=== PATIENT | female | born 1935 | race Caucasian/White ===

== ENCOUNTER → 2016-10-16 | Outpatient (CLI) | payer MEDICARE, BC ==
--- NOTE | 2016-10-16 14:42 | XR ---
EXAMINATION TYPE: XR chest 2V DATE OF EXAM: 10/16/2016 2:38 PM HISTORY: J44.9 COPD. REFERENCE: Previous study dated 11/25/2015. FINDINGS: The lungs are overinflated. There is a calcified granuloma at the left lung base. The lungs are otherwise clear. Pleural spaces are clear. Heart size is normal. IMPRESSION: 1. COPD. 2. EVIDENCE OF OLD GRANULOMATOUS DISEASE.
--- NOTE | 2016-10-16 14:43 | XR ---
EXAMINATION TYPE: XR abdomen 1V DATE OF EXAM ORDERED: 10/16/2016 2:38 PM HISTORY: K59.0 constipation. COMPARISON: None. FINDINGS: The abdominal gas pattern is within normal limits. There is no evidence of obstruction or free air. There is moderate fecal material present overlying the right side of the pelvis. No unusual calcifications are seen. There are degenerative changes in both hips, greater on the right than the left. IMPRESSION: NO ACUTE INTRA-ABDOMINAL ABNORMALITY.
== END | disposition home or self-care (01) ==
LOC: RADXRMAIN 14:18
PROVIDERS: ATTEND Physician Assistant
DX: J44.9 Chronic obstructive pulmonary disease, unspecified (principal); D71 Functional disorders of polymorphonuclear neutrophils; K59.00 Constipation, unspecified
CPT/HCPCS: 71020; 74000

== ENCOUNTER → 2016-11-03 | Outpatient (CLI) | payer MEDICARE, BC ==
--- NOTE | 2016-11-03 10:48 | ECHOF ---
Referral Reason:R01.1 cardiac murmur MEASUREMENTS -------- HEIGHT: 162.6 cm WEIGHT: 40.8 kg BP: 147/65 IVSd: 1.2 cm (0.6 - 1.1) LVIDd: 2.5 cm (3.9 - 5.3) LVPWd: 1.1 cm (0.6 - 1.1) IVSs: 1.6 cm LVIDs: 1.0 cm LVPWs: 1.6 cm Ao Diam: 2.9 cm (2.0 - 3.7) AV Cusp: 1.9 cm (1.5 - 2.6) LA Diam: 2.0 cm (2.7 - 3.8) MV EXCURSION: 13.362 mm (> 18.000) MV EF SLOPE: 62 mm/s (70 - 150) EPSS: 0.3 cm MV E Jalen: 0.63 m/s MV DecT: 206 ms MV A Jalen: 0.49 m/s MV E/A Ratio: 1.30 RAP: 5.00 mmHg RVSP: 30.00 mmHg FINDINGS -------- Sinus rhythm. This was a technically difficult study with suboptimal apical views.Images taken from subcoastals. There is mild concentric left ventricular hypertrophy. Overall left ventricular systolic function is normal with, an EF between 55 - 60 %. The right ventricle is normal in size and function. The left atrium is normal in size. The right atrium is normal in size. Aortic valve is trileaflet and is mildly thickened. The mitral valve leaflets are mildly thickened. Mild mitral regurgitation is present. Mild tricuspid regurgitation present. The right ventricular systolic pressure, as measured by Doppler, is 30.00mmHg. Pulmonic valve appears structurally normal. The aortic root size is normal. The pericardium is normal. CONCLUSIONS -------- 1. Sinus rhythm. 2. Mild mitral regurgitation is present. 3. Mild tricuspid regurgitation present. 4. The right ventricular systolic pressure, as measured by Doppler, is 30.00mmHg. 5. Pulmonic valve appears structurally normal. 6. The aortic root size is normal. 7. The pericardium is normal. 8. This was a technically difficult study with suboptimal apical views. Images taken from subcoastals. 9. There is mild concentric left ventricular hypertrophy. 10. Overall left ventricular systolic function is normal with, an EF between 55 - 60 %. 11. The right ventricle is normal in size and function. 12. The left atrium is normal in size. 13. The right atrium is normal in size. 14. Aortic valve is trileaflet and is mildly thickened. 15. The mitral valve leaflets are mildly thickened. PROFESSIONAL SERVICES MANAGER: Sydni Sorenson RDCS
== END | disposition home or self-care (01) ==
LOC: RADECHMAIN 08:18
PROVIDERS: ATTEND Family Medicine
DX: I08.1 Rheumatic disorders of both mitral and tricuspid valves (principal)
CPT/HCPCS: 93306

== ENCOUNTER → 2016-12-06 | Outpatient (CLI) | payer MEDICARE, BC ==
[2016-12-06 11:16] LABS: Blood Urea Nitrogen 12 mg/dL (7-17); Non-African American GFR(MDRD) >60 (>60 ml/min/1.73 sqM)
--- NOTE | 2016-12-06 13:46 | CT ---
EXAMINATION TYPE: CT abdomen pelvis w con DATE OF EXAM: 12/06/2016 COMPARISON: Prior CT 11/27/2012 HISTORY: chronic constipation CT DLP: 319.3 mGycm Automated exposure control for dose reduction was used. TECHNIQUE: Helical acquisition of images from the lung bases through the pelvis have been completed. CONTRAST: Performed with Oral Contrast and with IV Contrast, patient injected with 100 mL of Omnipaque 300. FINDINGS: LUNG BASES: Calcified granuloma in the left lower lobe is stable.. Interstitial changes present, emph ysematous changes at the lung bases. Posterior diaphragmatic hernia contains fat. No pleural or peric ardial effusion. AORTA: No significant abnormality is appreciated. LIVER/GB: Liver and gallbladder are stable PANCREAS: No significant abnormality is seen. SPLEEN: Calcifications again noted compatible with old granulomatous disease.. ADRENALS: Low dense left adrenal lesion appears stable and may represent adenoma. Right adrenal gland is unremarkable. KIDNEYS: Stable in appearance. Small cortical cysts are present. REPRODUCTIVE ORGANS: Uterus and adnexal structures are not evident. BOWEL: Retained fecal debris present within the colon along the a sending and transverse locations, more distally at the descending colon the colon is collapsed and show some questionable wall thickeni ng.. FREE AIR: No Free Air visible. ASCITES: None visible. PELVIC ADENOPATHY: None visualized. RETROPERITONEAL ADENOPATHY: No Retroperitoneal Adenopathy visible. URINARY BLADDER: Bladder is urine distended. OSSEOUS STRUCTURES: Degenerative disc changes are present within the visualized spine. IMPRESSION: CORRELATE TO EXCLUDE COLITIS. SIMILAR FINDINGS PRESENT ON PRIOR EXAM. Additional findings above.
== END | disposition home or self-care (01) ==
LOC: RADCTMAIN 10:32
PROVIDERS: ATTEND Family Medicine
DX: K59.00 Constipation, unspecified (principal)
CPT/HCPCS: 82565; 84520; 74177; 36415; Q9967

== ENCOUNTER → 2017-04-25 | Outpatient (CLI) | payer MEDICARE, BC ==
--- NOTE | 2017-04-25 15:00 | XR ---
EXAM TYPE: LUMBAR SPINE X RAY SERIES COMPARISON: NONE HISTORY: Back pain TECHNIQUE: 4 views are submitted. FINDINGS: Alignment is anatomic. The pedicles are intact. The transverse processes are intact. There is no s pondylolysis or spondylolisthesis. Diffuse osteopenia noted with multilevel degenerative disc diseas e and severe changes L5-S1. Facet arthropathy L4-5 and L5-S1. Vascular calcification seen. IMPRESSION: 1. Diffuse osteopenia and multilevel degenerative disc disease. Consider MRI follow-up.
[2017-04-25 15:02] LABS: Non-African American GFR(MDRD) >60 (>60 ml/min/1.73 sqM)
--- NOTE | 2017-04-26 01:00 | MR ---
EXAMINATION TYPE: MR lumbar spine wo/w con DATE OF EXAM: 04/25/2017 COMPARISON: NONE HISTORY: 81-year-old female with sciatica Technique: Multiplanar, multisequence images of the lumbar spine were obtained before and after admin istration of 4.5 mL IV Gadavist contrast. FINDINGS: Mildly ectatic upper abdominal aorta 2.7 cm. No prevertebral or paravertebral soft tissue abnormality seen. Vertebral body heights are preserved and alignment is maintained. No suspicious bone marrow replacement. Conus medullaris is normal. Variable mild intervertebral disc desiccation and bulging disc especially in the mid to lower lumbar spine. There is enhancing posterior annular fissure at L4-L5. Hypertrophic facet arthropathy mid to lower lumbar spine with corresponding ligamentum flavum thicken ing. At T12-L1, no spinal canal or neuroforaminal stenosis. At L1-L2, no spinal canal or neural foraminal stenosis. At L2-L3, there is mild bulging disc without significant canal or foraminal stenosis. At L3-L4, larger diffuse disc bulge with ligamentum flavum thickening and hypertrophic facet arthropa thy. Changes result in moderate to severe spinal canal stenosis. Some CSF signal remains at the focal site of narrowing. Mild left greater than right neural foraminal stenosis. At L4-L5, diffuse disc bulge and ligament of flavum thickening with facet arthropathy. There is some indentation onto the ventral thecal sac without significant spinal canal stenosis. Changes result in mild bilateral neural foraminal stenosis with disc material closely approaching and possibly abutting the traversing left L5 nerve root. At L5-S1, there is diffuse disc bulge which seems to prominently abut the right greater than left tra versing S1 nerve roots. Ligamentum flavum thickening and facet arthropathy without significant spinal canal stenosis. There is mild bilateral neuroforaminal stenosis. No abnormal enhancement within the spinal canal. IMPRESSION: 1. Mild to moderate multilevel degenerative disc disease. Additional ligamentum flavum thickening and hypertrophic facet arthropathy in the mid to lower lumbar spine. 2. Changes result in overall moderate to severe spinal canal stenosis at L3-L4. 3. At L4-L5, there is posterior annular fissure and disc material closely approaches and possibly abu ts the traversing left L5 nerve root. 4. Broad-based disc herniation at L5-S1 which seems to compressed the traversing right S1 nerve root and abuts the traversing left S1 nerve root. 5. Variable mild neuroforaminal stenoses as outlined above.
== END | disposition home or self-care (01) ==
LOC: RADMRIMAIN 14:21
PROVIDERS: ATTEND Family Medicine
DX: M48.061 Spinal stenosis, lumbar region without neurogenic claudication (principal); M51.36 Other intervertebral disc degeneration, lumbar region; M51.27 Other intervertebral disc displacement, lumbosacral region; M99.73 Connective tissue and disc stenosis of intervertebral foramina of lumbar region; M24.28 Disorder of ligament, vertebrae; M53.86 Other specified dorsopathies, lumbar region; M85.88 Other specified disorders of bone density and structure, other site
CPT/HCPCS: 82565; 72100; 72158; A9581

== ENCOUNTER → 2017-12-03 | Outpatient (CLI) | payer MEDICARE, BC ==
--- NOTE | 2017-12-03 13:41 | US ---
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 EXAM MEASUREMENTS: Right Kidney: 10.2 x 3.3 x 4.6 cm Left Kidney: 10.0 x 3.6 x 4.2 cm Right Kidney: No hydronephrosis or masses seen Left Kidney: No hydronephrosis or masses seen Bladder: wnl Bilateral Jets seen: Yes There is no evidence for hydronephrosis at this point in time. No nephrolithiasis is seen. No iris s are identified. The urinary bladder is anechoic. Bilateral ureteral jets are seen. IMPRESSION: Unremarkable renal ultrasound. No evidence of hydronephrosis, nephrolithiasis or sonographic evidence of medical renal disease. Urinary bladder is grossly unremarkable.
== END | disposition home or self-care (01) ==
LOC: RADUSWWP 12:40
PROVIDERS: ATTEND Urology
DX: C67.0 Malignant neoplasm of trigone of bladder (principal)
CPT/HCPCS: 76770

== ENCOUNTER → 2018-02-01 | Outpatient (CLI) | payer MEDICARE, BC ==
--- NOTE | 2018-02-01 16:50 | XR ---
EXAMINATION TYPE: XR cervical spine comp DATE OF EXAM: 02/01/2018 COMPARISON: 02/17/2011 HISTORY: Neck pain TECHNIQUE: 6 views FINDINGS: Vertebra have normal alignment. There is mild spurring of the endplates anteriorly at [id number] and 6 7. Posterior elements are intact. Atlantoaxial facet joint is normal. There are no cervical ribs. IMPRESSION: Mild spondylotic changes. No fracture. Overall no adverse change compared to old exam.
== END | disposition home or self-care (01) ==
LOC: RADXRMAIN 16:15
PROVIDERS: ATTEND Family Medicine
DX: M47.812 Spondylosis without myelopathy or radiculopathy, cervical region (principal)
CPT/HCPCS: 72050

== ENCOUNTER → 2018-02-25 | Outpatient (CLI) | payer MEDICARE, BC ==
--- NOTE | 2018-02-25 11:33 | XR ---
EXAMINATION TYPE: XR chest 2V DATE OF EXAM: 02/25/2018 COMPARISON: 10/16/2016 TECHNIQUE: PA and lateral views submitted. HISTORY: Difficulty breathing FINDINGS: The lungs are clear and there is no pneumothorax, pleural effusion, or focal pneumonia. Hyperinflat ion suggests COPD and there is apical thickening bilaterally. Postsurgical change right shoulder. Dif fuse osteopenia noted. 1 cm nodule overlying the left lower lobe. Atherosclerotic change of the aorta . Hypertrophic and degenerative change of the spine. IMPRESSION: 1. COPD with left lower lobe pulmonary nodule CT of the chest is recommended.
== END | disposition home or self-care (01) ==
LOC: RADXRMAIN 10:13
PROVIDERS: ATTEND Physician Assistant
DX: J44.9 Chronic obstructive pulmonary disease, unspecified (principal); R91.1 Solitary pulmonary nodule
CPT/HCPCS: 71046

== ENCOUNTER → 2018-03-07 | Outpatient (CLI) | payer MEDICARE, BC ==
[2018-03-07 15:50] LABS: Blood Urea Nitrogen 12 mg/dL (7-17)
--- NOTE | 2018-03-07 16:29 | CT ---
EXAMINATION TYPE: CT chest w con DATE OF EXAM: 03/07/2018 COMPARISON: 09/26/2009 HISTORY: Productive cough and solitary pulmonary nodule CT DLP: 278 mGycm. Automated Exposure Control for Dose Reduction was Utilized. TECHNIQUE: CT scan of the thorax is performed following with IV Contrast, patient injected with 100 mL of Isovue 300. FINDINGS: LUNGS: There are extensive centrilobular and paraseptal emphysematous changes of the lungs. Left basi lar calcified pulmonary nodule is benign. This impaction of the distal segmental bronchus in the righ t middle lobe and adjacent atelectasis are seen on series 4 image 38 through 44. There is a pectus ex cavatum deformity. Main tracheobronchial tree is patent. There is no focal consolidation, pleural eff usion or pneumothorax. MEDIASTINUM: There are no greater than 1 cm hilar or mediastinal lymph nodes. No pericardial effusi on is seen. There is tortuosity of the descending thoracic aorta although it is within normal limits of size. There is a conventional three-vessel branch pattern of the aortic arch. Moderate atheroscle rosis of the thoracic aorta is seen with minimal coronary artery calcifications. OTHER: Benign calcified splenic parenchymal granulomas and hepatic granulomas are noted. Nonspecific thickening of the left adrenal gland is partially visualized on image 64 measuring up to 1.4 cm. This is not compatible with a benign lipid rich adenoma on today's exam. Small bridging anterior osteophy torie may relate to diffuse idiopathic skeletal hyperostosis or moderate multilevel degenerative change . IMPRESSION: 1. Extensive panlobular pulmonary emphysema. 2. Benign calcified left lower lobe granuloma. No suspicious pulmonary nodule or mass. 3. Endobronchial mucoid impaction of a solitary subsegmental bronchus of the right middle lobe. 4. Indeterminate left adrenal gland lesion for which full characterization with three-phase enhanced CT abdomen is recommended (adrenal mass protocol).
== END | disposition home or self-care (01) ==
LOC: RADCTMAIN 15:19
PROVIDERS: ATTEND Physician Assistant
DX: J43.1 Panlobular emphysema (principal); J84.10 Pulmonary fibrosis, unspecified; J98.09 Other diseases of bronchus, not elsewhere classified
CPT/HCPCS: 82565; 84520; 71260; 36415; Q9967

== ENCOUNTER 2018-05-17 17:09 | Emergency (ER) | payer MEDICARE, BC ==
[2018-05-17 17:21] VITALS: TEMP 97.5
[2018-05-17] MEDS ORDERED: ASPIRIN 81 MG PO STA (17:50)
--- NOTE | 2018-05-17 17:55 | ED ---
General Adult HPI - General Chief complaint: Recheck/Abnormal Lab/Rx Stated complaint: High BP Time Seen by Provider: 05/17/18 17:33 Source: patient Mode of arrival: ambulatory Limitations: no limitations - History of Present Illness Initial comments: Patient is an 82-year-old female with a history of viral endocarditis and hyperthyroidism who presents with a chief complaint weakness. However about 2 weeks. Patient cannot identify inciting incident. There are no aggravating or alleviating factors. Timing is constant. Patient follows with Dr. Pal who requested that she go to the emergency department for evaluation. - Related Data Home Medications Medication Instructions Recorded Confirmed Levothyroxine Sodium [Synthroid] 50 mcg PO DAILY 05/17/18 05/17/18 Loratadine 10 mg PO DAILY PRN 05/17/18 05/17/18 Verapamil HCl 120 mg PO BID 05/17/18 05/17/18 Allergies Allergy/AdvReac Type Severity Reaction Status Date / Time azithromycin Allergy Verified 05/17/18 18:11 codeine Allergy Verified 05/17/18 18:11 mussels Allergy Verified 05/17/18 18:11 Sulfa (Sulfonamide Allergy Verified 05/17/18 18:11 Antibiotics) Review of Systems ROS Statement: Those systems with pertinent positive or pertinent negative responses have been documented in the HPI. ROS Other: All systems not noted in ROS Statement are negative. Constitutional: Reports: weakness Past Medical History Past Medical History: Hypertension, Thyroid Disorder History of Any Multi-Drug Resistant Organisms: None Reported Past Surgical History: No Surgical Hx Reported Past Psychological History: No Psychological Hx Reported Smoking Status: Current some day smoker Past Alcohol Use History: None Reported Past Drug Use History: None Reported General Exam Limitations: no limitations General appearance: alert, in no apparent distress Head exam: Present: atraumatic, normocephalic Eye exam: Present: normal appearance, PERRL ENT exam: Present: normal exam Neck exam: Present: normal inspection Respiratory exam: Present: normal lung sounds bilaterally, respiratory distress Cardiovascular Exam: Present: regular rate, normal rhythm GI/Abdominal exam: Present: soft, tenderness (Right upper quadrant tenderness). Absent: distended Rectal exam: Present: deferred Extremities exam: Present: normal inspection Back exam: Present: normal inspection. Absent: CVA tenderness (R), CVA tenderness (L) Neurological exam: Present: alert, oriented X3, CN II-XII intact, normal gait Psychiatric exam: Present: normal affect, normal mood Skin exam: Present: warm, dry, intact Course Vital Signs 05/17/18 05/17/18 05/17/18 17:18 18:01 18:39 Temperature 97.5 F L Pulse Rate 78 78 73 Respiratory 22 29 H 18 Rate Blood Pressure 166/80 156/72 O2 Sat by Pulse 97 95 97 Oximetry 05/17/18 05/17/18 19:00 21:00 Temperature Pulse Rate 72 75 Respiratory 21 20 Rate Blood Pressure 156/72 172/79 O2 Sat by Pulse 95 96 Oximetry Medical Decision Making - Medical Decision Making Patient presents with a chief complaint of fatigue. On initial evaluation, vital signs are stable, patient is in no acute distress. Patient evaluated that he landed including cardiac enzymes, liver profile and lipase given the right upper quadrant abdominal pain, chest x-ray. Patient was given aspirin. EKG performed at 1813 normal sinus rhythm with a rate of 70 bpm. There is an incomplete right bundle branch block, segmented greater than normal limits, no acute sign of ischemia. There are no previous EKGs to compare to. 10:20 PM Evaluation this patient is unremarkable except for an elevated TSH, reflex T4 is 1.0. I discussed this case with Dr. Padilla from endocrinology who states that the patient is appropriate for outpatient follow-up. The patient will be given contact information for Dr. Sawant's office and instructed to follow-up in one week. Patient was instructed to return to the ED if symptoms worsen or change. - Lab Data Result diagrams: 05/17/18 18:30 05/17/18 18:30 Lab Results 05/17/18 05/17/18 05/17/18 Range/Units 17:15 18:30 18:30 WBC (3.8-10.6) k/uL RBC (3.80-5.40) m/uL Hgb (11.4-16.0) gm/dL Hct (34.0-46.0) % MCV (80.0-100.0) fL MCH (25.0-35.0) pg MCHC (31.0-37.0) g/dL RDW (11.5-15.5) % Plt Count (150-450) k/uL Neutrophils % % Lymphocytes % % Monocytes % % Eosinophils % % Basophils % % Neutrophils # (1.3-7.7) k/uL Lymphocytes # (1.0-4.8) k/uL Monocytes # (0-1.0) k/uL Eosinophils # (0-0.7) k/uL Basophils # (0-0.2) k/uL Sodium 141 (137-145) mmol/L Potassium 3.6 (3.5-5.1) mmol/L Chloride 106 (98-107) mmol/L Carbon Dioxide 27 (22-30) mmol/L Anion Gap 8 mmol/L BUN 10 (7-17) mg/dL Creatinine 0.54 (0.52-1.04) mg/dL Est GFR (CKD-EPI)AfAm >90 (>60 ml/min/1.73 sqM) Est GFR (CKD-EPI)NonAf 88 (>60 ml/min/1.73 sqM) Glucose 91 (74-99) mg/dL Calcium 9.7 (8.4-10.2) mg/dL Total Bilirubin 0.3 (0.2-1.3) mg/dL AST 25 (14-36) U/L ALT 27 (9-52) U/L Alkaline Phosphatase 68 (38-126) U/L Troponin I <0.012 (0.000-0.034) ng/mL NT-Pro-B Natriuret Pep pg/mL Total Protein 7.0 (6.3-8.2) g/dL Albumin 4.3 (3.5-5.0) g/dL Lipase 132 (23-300) U/L TSH 6.280 H (0.465-4.680) mIU/L Free T4 1.00 (0.78-2.19) ng/dL Urine Color Colorless Urine Appearance Clear (Clear) Urine pH 6.5 (5.0-8.0) Ur Specific [place] 1.002 (1.001-1.035) Urine Protein Negative (Negative) Urine Glucose (UA) Negative (Negative) Urine Ketones Negative (Negative) Urine Blood Negative (Negative) Urine Nitrite Negative (Negative) Urine Bilirubin Negative (Negative) Urine Urobilinogen <2.0 (<2.0) mg/dL Ur Leukocyte Esterase Negative (Negative) 05/17/18 05/17/18 Range/Units 18:30 18:30 WBC 5.4 (3.8-10.6) k/uL RBC 4.57 (3.80-5.40) m/uL Hgb 13.5 (11.4-16.0) gm/dL Hct 43.0 (34.0-46.0) % MCV 94.0 (80.0-100.0) fL MCH 29.4 (25.0-35.0) pg MCHC 31.3 (31.0-37.0) g/dL RDW 13.6 (11.5-15.5) % Plt Count 199 (150-450) k/uL Neutrophils % 52 % Lymphocytes % 36 % Monocytes % 6 % Eosinophils % 4 % Basophils % 1 % Neutrophils # 2.8 (1.3-7.7) k/uL Lymphocytes # 1.9 (1.0-4.8) k/uL Monocytes # 0.3 (0-1.0) k/uL Eosinophils # 0.2 (0-0.7) k/uL Basophils # 0.1 (0-0.2) k/uL Sodium (137-145) mmol/L Potassium (3.5-5.1) mmol/L Chloride (98-107) mmol/L Carbon Dioxide (22-30) mmol/L Anion Gap mmol/L BUN (7-17) mg/dL Creatinine (0.52-1.04) mg/dL Est GFR (CKD-EPI)AfAm (>60 ml/min/1.73 sqM) Est GFR (CKD-EPI)NonAf (>60 ml/min/1.73 sqM) Glucose (74-99) mg/dL Calcium (8.4-10.2) mg/dL Total Bilirubin (0.2-1.3) mg/dL AST (14-36) U/L ALT (9-52) U/L Alkaline Phosphatase (38-126) U/L Troponin I (0.000-0.034) ng/mL NT-Pro-B Natriuret Pep 109 pg/mL Total Protein (6.3-8.2) g/dL Albumin (3.5-5.0) g/dL Lipase (23-300) U/L TSH (0.465-4.680) mIU/L Free T4 (0.78-2.19) ng/dL Urine Color Urine Appearance (Clear) Urine pH (5.0-8.0) Ur Specific [place] (1.001-1.035) Urine Protein (Negative) Urine Glucose (UA) (Negative) Urine Ketones (Negative) Urine Blood (Negative) Urine Nitrite (Negative) Urine Bilirubin (Negative) Urine Urobilinogen (<2.0) mg/dL Ur Leukocyte Esterase (Negative) Disposition Clinical Impression: Fatigue Disposition: HOME SELF-CARE Condition: Good Is patient prescribed a controlled substance at d/c from ED?: No Referrals: Ebenezer Caldwell MD [Primary Care Provider] - 1-2 days Cindy Padilla MD [STAFF PHYSICIAN] - 1-2 days
[2018-05-17 18:41] LABS: Basophils # (A) 0.1 k/uL (0-0.2); Basophils % (A) 1 %; Eosinophils # (A) 0.2 k/uL (0-0.7); Eosinophils % (A) 4 %; HGB 13.5 gm/dL (11.4-16.0); Lymphocytes # (A) 1.9 k/uL (1.0-4.8); Lymphocytes % (A) 36 %; MCH 29.4 pg (25.0-35.0); MCHC 31.3 g/dL (31.0-37.0); Mean Platelet Volume 6.6; Monocytes # (A) 0.3 k/uL (0-1.0); Monocytes % (A) 6 %; Neutrophils # (A) 2.8 k/uL (1.3-7.7); Neutrophils % (A) 52 %; Platelet Count 199 k/uL (150-450); RBC 4.57 m/uL (3.80-5.40); RDW 13.6 % (11.5-15.5); WBC 5.4 k/uL (3.8-10.6)
[2018-05-17 18:49] LABS: ALT 27 U/L (9-52); AST 25 U/L (14-36); Albumin 4.3 g/dL (3.5-5.0); Alkaline Phosphatase 68 U/L (38-126); Anion Gap 8 mmol/L; Blood Urea Nitrogen 10 mg/dL (7-17); Calcium 9.7 mg/dL (8.4-10.2); Carbon Dioxide 27 mmol/L (22-30); Chloride 106 mmol/L (98-107); Glucose 91 mg/dL (74-99); Lipase 132 U/L (23-300); Potassium 3.6 mmol/L (3.5-5.1); Sodium 141 mmol/L (137-145); Total Bilirubin 0.3 mg/dL (0.2-1.3)
--- NOTE | 2018-05-17 19:08 | XR ---
EXAMINATION TYPE: XR chest 2V DATE OF EXAM: 05/17/2018 COMPARISON: 03/21/2018 HISTORY: High blood pressure TECHNIQUE: Frontal and lateral views of the chest are obtained. FINDINGS: There is no heart failure nor confluent pneumonic infiltrate. There is pulmonary hyperinfl ation and flattening of the diaphragm. There is a 1 cm calcified granuloma in the left lower lobe. Th oracic aorta is atheromatous. There are chest leads. IMPRESSION: COPD. No acute lung disease. No change.
[2018-05-17 19:31] LABS: Appearance,Urine Clear (Clear); Bilirubin,Urine Negative (Negative); Blood,Urine Negative (Negative); Color,Urine Colorless; Glucose,Urine (UA) Negative (Negative); Ketones,Urine Negative (Negative); Leukocyte Esterase,Urine Negative (Negative); Nitrite,Urine Negative (Negative); PH, Urine 6.5 (5.0-8.0); Protein,Urine Negative (Negative); Specific Gravity,Urine 1.002 (1.001-1.035); Urobilinogen,Urine <2.0 mg/dL (<2.0)
[2018-05-17 22:00] VITALS: BP 172/79; PULSE 75; RESP 20
== END 2018-05-17 23:52 | disposition home or self-care (01) ==
LOC: EC 17:09
DX: R53.83 Other fatigue (principal); R10.11 Right upper quadrant pain; I45.10 Unspecified right bundle-branch block; R94.6 Abnormal results of thyroid function studies; R06.03 Acute respiratory distress; R53.1 Weakness; I10 Essential (primary) hypertension; E05.90 Thyrotoxicosis, unspecified without thyrotoxic crisis or storm; F17.200 Nicotine dependence, unspecified, uncomplicated; Z88.1 Allergy status to other antibiotic agents; Z88.2 Allergy status to sulfonamides; Z88.5 Allergy status to narcotic agent; Z91.048 Other nonmedicinal substance allergy status; Z79.899 Other long term (current) drug therapy
CPT/HCPCS: 36415; 71046; 80053; 81003; 83690; 83880; 84439; 84443; 84484; 85025; 93005; 99283

== ENCOUNTER 2018-05-29 18:34 | Inpatient (IN) | payer MEDICARE, BC ==
[2018-05-29] MEDS ORDERED: SODIUM CHLORIDE 0.9% 1,000 ML IV STA ×2 (19:32)
[2018-05-29] MEDS ORDERED: IPRATROPIUM-ALBUTEROL 3 ML NEB INHALATION STA ×2 (19:33→19:35)
--- NOTE | 2018-05-29 19:36 | ED ---
SOB HPI - General Chief Complaint: Shortness of Breath Stated Complaint: IVETTE, SENT BY DR CALIXTO Time Seen by Provider: 05/29/18 19:03 Source: patient, RN notes reviewed, old records reviewed Mode of arrival: ambulatory Limitations: no limitations - History of Present Illness Initial Comments: Patient is a 82-year-old female presents emergency department today with difficulty breathing. She reports she's had upper respirator infection for the past 2 weeks. She reports that she becomes very short of breath with walking short distances. Patient was seen by her primary care provider today. She was given an IM dose of antibiotic and steroid and a breathing treatment office. It was sent here for further evaluation. She denies chest pain. She is a previous smoker and diagnosed with minor COPD. - Related Data Home Medications Medication Instructions Recorded Confirmed Levothyroxine Sodium [Synthroid] 50 mcg PO DAILY 05/17/18 05/29/18 Verapamil HCl 120 mg PO BID 05/17/18 05/29/18 Ensure 1 can PO BID-W/MEALS 05/29/18 05/29/18 Allergies Allergy/AdvReac Type Severity Reaction Status Date / Time azithromycin Allergy Unknown Verified 05/29/18 20:04 codeine Allergy Unknown Verified 05/29/18 20:04 mussels Allergy Unknown Verified 05/29/18 20:04 Sulfa (Sulfonamide Allergy Unknown Verified 05/29/18 20:04 Antibiotics) Review of Systems ROS Statement: Those systems with pertinent positive or pertinent negative responses have been documented in the HPI. ROS Other: All systems not noted in ROS Statement are negative. Past Medical History Past Medical History: COPD, Hypertension, Thyroid Disorder History of Any Multi-Drug Resistant Organisms: None Reported Past Surgical History: No Surgical Hx Reported, Hysterectomy Additional Past Surgical History / Comment(s): vein stripping BLE, R knee, oophrectomy, R shoulder Past Psychological History: No Psychological Hx Reported Smoking Status: Former smoker Past Alcohol Use History: None Reported Past Drug Use History: None Reported General Exam - General Exam Comments Initial Comments: 82-year-old female. Patient is speaking in short sentences. Limitations: no limitations General appearance: alert, in no apparent distress Head exam: Present: atraumatic, normocephalic, normal inspection Eye exam: Present: normal appearance, PERRL, EOMI. Absent: scleral icterus, conjunctival injection, periorbital swelling ENT exam: Present: normal exam, mucous membranes moist Neck exam: Present: normal inspection Respiratory exam: Present: rhonchi (She's wheezing and rhonchi noted). Absent: normal lung sounds bilaterally, respiratory distress, rales, stridor Cardiovascular Exam: Present: regular rate, normal rhythm, normal heart sounds. Absent: systolic murmur, diastolic murmur, rubs, gallop, clicks GI/Abdominal exam: Present: soft, normal bowel sounds. Absent: distended, tenderness, guarding, rebound, rigid Extremities exam: Present: normal inspection, full ROM, normal capillary refill. Absent: tenderness, pedal edema, joint swelling, calf tenderness Back exam: Present: normal inspection Neurological exam: Present: alert, oriented X3, CN II-XII intact Psychiatric exam: Present: normal affect, normal mood Skin exam: Present: warm, dry, intact, normal color. Absent: rash Course Vital Signs 05/29/18 05/29/18 05/29/18 18:58 19:38 19:48 Temperature 98.9 F Pulse Rate 108 H 101 H 101 H Respiratory 20 Rate Blood Pressure 145/80 O2 Sat by Pulse 88 L Oximetry 05/29/18 05/29/18 20:42 21:00 Temperature 98.8 F Pulse Rate 77 77 Respiratory 20 20 Rate Blood Pressure 172/77 167/75 O2 Sat by Pulse 98 97 Oximetry - Reevaluation(s) Reevaluation #1: 05/29/18 19:36 Patient was found to be 85% on room air. Placed on 3 L supplemental oxygen and respiratory was called for stat DuoNeb treatment. Medical Decision Making - Medical Decision Making This is an 82-year-old male presents that her states difficulty in breathing. Patient has a history of COPD. She is previous to see Dr. Gonsales. She reports emergency department with diffuse wheezing. She reports she's been having upper respiratory cough and congestion for the past 2 weeks. Patient is afebrile at this time. That she had a low pulse ox 88-85% on room air. She started none oxygen and given a double DuoNeb treatment. She does have improvement afterwards. Patient continues to wheeze. She is very short of breath on very little exertion. Her troponin was reviewed and negative. EKG shows no significant changes. At this time Patient will be admitted for severe COPD exacerbation, steroids. Patient reports she's R he received a dose of IM antibiotics and steroid. I will give the Patient gram of Rocephin and azithromycin at this time. I discussed the patient's will be admitted with consult to Dr. Gonsales. I discussed the case with Dr. Stern discussed the case with Dr. Calixto. - Lab Data Result diagrams: 05/29/18 19:42 05/29/18 19:42 Lab Results 05/29/18 05/29/18 05/29/18 Range/Units 19:42 19:42 19:42 WBC 7.8 (3.8-10.6) k/uL RBC 4.73 (3.80-5.40) m/uL Hgb 14.1 (11.4-16.0) gm/dL Hct 43.8 (34.0-46.0) % MCV 92.7 (80.0-100.0) fL MCH 29.9 (25.0-35.0) pg MCHC 32.2 (31.0-37.0) g/dL RDW 13.8 (11.5-15.5) % Plt Count 198 (150-450) k/uL Neutrophils % 78 % Lymphocytes % 15 % Monocytes % 5 % Eosinophils % 1 % Basophils % 1 % Neutrophils # 6.0 (1.3-7.7) k/uL Lymphocytes # 1.1 (1.0-4.8) k/uL Monocytes # 0.4 (0-1.0) k/uL Eosinophils # 0.1 (0-0.7) k/uL Basophils # 0.0 (0-0.2) k/uL PT (9.0-12.0) sec INR (<1.2) APTT (22.0-30.0) sec VBG pH 7.35 (7.31-7.41) VBG pCO2 52 H (37-51) mmHg VBG HCO3 28 (24-28) mmol/L Sodium (137-145) mmol/L Potassium (3.5-5.1) mmol/L Chloride (98-107) mmol/L Carbon Dioxide (22-30) mmol/L Anion Gap mmol/L BUN (7-17) mg/dL Creatinine (0.52-1.04) mg/dL Est GFR (CKD-EPI)AfAm (>60 ml/min/1.73 sqM) Est GFR (CKD-EPI)NonAf (>60 ml/min/1.73 sqM) Glucose (74-99) mg/dL Calcium (8.4-10.2) mg/dL Magnesium (1.6-2.3) mg/dL Total Bilirubin (0.2-1.3) mg/dL AST (14-36) U/L ALT (9-52) U/L Alkaline Phosphatase (38-126) U/L Total Creatine Kinase 64 (30-135) U/L CK-MB (CK-2) 0.7 (0.0-2.4) ng/mL CK-MB (CK-2) Rel Index 1.1 Troponin I <0.012 (0.000-0.034) ng/mL Total Protein (6.3-8.2) g/dL Albumin (3.5-5.0) g/dL 05/29/18 05/29/18 Range/Units 19:42 19:42 WBC (3.8-10.6) k/uL RBC (3.80-5.40) m/uL Hgb (11.4-16.0) gm/dL Hct (34.0-46.0) % MCV (80.0-100.0) fL MCH (25.0-35.0) pg MCHC (31.0-37.0) g/dL RDW (11.5-15.5) % Plt Count (150-450) k/uL Neutrophils % % Lymphocytes % % Monocytes % % Eosinophils % % Basophils % % Neutrophils # (1.3-7.7) k/uL Lymphocytes # (1.0-4.8) k/uL Monocytes # (0-1.0) k/uL Eosinophils # (0-0.7) k/uL Basophils # (0-0.2) k/uL PT 9.6 (9.0-12.0) sec INR 0.9 (<1.2) APTT 22.8 (22.0-30.0) sec VBG pH (7.31-7.41) VBG pCO2 (37-51) mmHg VBG HCO3 (24-28) mmol/L Sodium 138 (137-145) mmol/L Potassium 3.7 (3.5-5.1) mmol/L Chloride 100 (98-107) mmol/L Carbon Dioxide 27 (22-30) mmol/L Anion Gap 11 mmol/L BUN 14 (7-17) mg/dL Creatinine 0.66 (0.52-1.04) mg/dL Est GFR (CKD-EPI)AfAm >90 (>60 ml/min/1.73 sqM) Est GFR (CKD-EPI)NonAf 83 (>60 ml/min/1.73 sqM) Glucose 101 H (74-99) mg/dL Calcium 9.9 (8.4-10.2) mg/dL Magnesium 1.8 (1.6-2.3) mg/dL Total Bilirubin 0.7 (0.2-1.3) mg/dL AST 30 (14-36) U/L ALT 25 (9-52) U/L Alkaline Phosphatase 92 (38-126) U/L Total Creatine Kinase (30-135) U/L CK-MB (CK-2) (0.0-2.4) ng/mL CK-MB (CK-2) Rel Index Troponin I (0.000-0.034) ng/mL Total Protein 7.8 (6.3-8.2) g/dL Albumin 4.5 (3.5-5.0) g/dL 05/29/18 20:30 EKG performed at 195. EKG shows sinus tachycardia, right atrial enlargement. Ventricular rate of 102 bpm. Was 1:30 milliseconds. QRS ration 82 ms. QT QTc is 358/466 ms. - Radiology Data Radiology results: report reviewed No active cardiopulmonary disease. COPD. No significant changes. Disposition Clinical Impression: COPD exacerbation, Dyspnea Disposition: ADMITTED IP TO THIS HOSP Condition: Stable Is patient prescribed a controlled substance at d/c from ED?: No Referrals: Ebenezer Calixto MD [Primary Care Provider] - 1-2 days Time of Disposition: 21:36
[2018-05-29 20:02] LABS: Basophils % (A) 1 %; Eosinophils # (A) 0.1 k/uL (0-0.7); Eosinophils % (A) 1 %; HCT 43.8 % (34.0-46.0); HGB 14.1 gm/dL (11.4-16.0); Lymphocytes # (A) 1.1 k/uL (1.0-4.8); Lymphocytes % (A) 15 %; MCH 29.9 pg (25.0-35.0); MCHC 32.2 g/dL (31.0-37.0); MCV 92.7 fL (80.0-100.0); Mean Platelet Volume 6.7; Monocytes # (A) 0.4 k/uL (0-1.0); Monocytes % (A) 5 %; Neutrophils % (A) 78 %; Platelet Count 198 k/uL (150-450); RBC 4.73 m/uL (3.80-5.40); RDW 13.8 % (11.5-15.5); VBG PH 7.35 (7.31-7.41); WBC 7.8 k/uL (3.8-10.6)
[2018-05-29 20:11] LABS: ALT 25 U/L (9-52); AST 30 U/L (14-36); Albumin 4.5 g/dL (3.5-5.0); Alkaline Phosphatase 92 U/L (38-126); Anion Gap 11 mmol/L; Blood Urea Nitrogen 14 mg/dL (7-17); Calcium 9.9 mg/dL (8.4-10.2); Carbon Dioxide 27 mmol/L (22-30); Chloride 100 mmol/L (98-107); Glucose 101 mg/dL (74-99); Magnesium 1.8 mg/dL (1.6-2.3); Potassium 3.7 mmol/L (3.5-5.1); Sodium 138 mmol/L (137-145); Total Bilirubin 0.7 mg/dL (0.2-1.3); Total Protein 7.8 g/dL (6.3-8.2)
[2018-05-29 20:13] LABS: INR 0.9 (<1.2); Partial Thromboplastin Time 22.8 sec (22.0-30.0); Prothrombin Time 9.6 sec (9.0-12.0)
[2018-05-29 20:25] LABS: Creatine Kinase 64 U/L (30-135)
--- NOTE | 2018-05-29 20:27 | XR ---
EXAMINATION TYPE: XR chest 2V DATE OF EXAM: 05/29/2018 COMPARISON: 05/17/2018 HISTORY: Short of breath TECHNIQUE: Frontal and lateral views of the chest are obtained. FINDINGS: There is pulmonary hyperinflation. There is no heart failure. Heart size is normal. Thorac ic aorta is atheromatous. Bony thorax appears intact. There is 1 cm calcified granuloma left lower lo be. IMPRESSION: No active cardiopulmonary disease. COPD. No change.
[2018-05-29 20:38] LABS: Creatine Kinase MB 0.7 ng/mL (0.0-2.4); Troponin I <0.012 ng/mL (0.000-0.034)
[2018-05-29] MEDS ORDERED: PROMETHAZ-COD 6.25-10 MG/5 ML 5 ML CUP PO PRN (21:37)
[2018-05-30] MEDS: methylPREDNISolone SOD SUCCI 125 MG/2 ML VIAL IV SCH ×4 (00:42→17:42)
[2018-05-30] MEDS: LEVOTHYROXINE 50 MCG TAB PO SCH (06:24)
[2018-05-30 07:12] LABS: Glucose,Whole Blood 134 mg/dL (75-99)
[2018-05-30] MEDS ORDERED: NON-FORMULARY DRUG (Ensure 1 CAN) PO SCH (07:30)
[2018-05-30] MEDS: BUDESONIDE 0.5 MG/2 ML NEBU INHALATION SCH ×2 (07:40→20:17)
[2018-05-30] MEDS: IPRATROPIUM-ALBUTEROL 3 ML NEB INHALATION PRN (07:50)
[2018-05-30] MEDS: guaiFENesin 600 MG TABLET.ER PO SCH ×2 (08:50→21:49)
[2018-05-30] MEDS: INSULIN ASPART 100 UNIT/ML 1 ML 10 ML VIAL SQ SCH ×4 (08:50→21:50)
[2018-05-30] MEDS: VERAPAMIL 40 MG TAB PO SCH ×2 (08:51→21:50)
[2018-05-30 12:06] LABS: Glucose,Whole Blood 158 mg/dL (75-99)
[2018-05-30 13:14] VITALS: BMI 15.3
[2018-05-30] MEDS: POLYETHYLENE GLYCOL 3350 17 GM POWD.PACK PO SCH (13:14)
[2018-05-30] MEDS: DOXYCYCLINE 100 MG CAP PO SCH ×2 (14:58→21:50)
--- NOTE | 2018-05-30 15:14 | P.CNPUL ---
History of Present Illness Consult date: 05/30/18 Requesting physician: Ebenezre Caldwell Reason for consult: dyspnea, cough, COPD Chief complaint: Shortness of breath, cough, chest congestion, phlegm production , chills History of present illness: This is a 82-year-old white female patient of Dr. Caldwell with past medical history of mild COPD, baseline FEV1 of 1.5 L or 76% of predicted, nicotine dependence, off-and-on for 35 years, hypothyroidism, anxiety, hyperlipidemia. Patient presented to the emergency department on 05/29/2018 for evaluation of difficulty breathing, cough, chest congestion, phlegm production. She denies any fever, but did have some subjective chills, she had been sick for last 2 weeks. She was seen by her primary care provider, and a I am dose of antibiotics and steroids, eating treatment and directed to the emergency department for further management. Chest x-ray did not show any active cardiopulmonary disease. There was a 1 cm calcified granuloma in the left lower lobe, was previously noted on the CT of the chest tube are 2017. No leukocytosis, electrolytes and renal profile are within normal limits, troponin was negative 1, LFTs were unremarkable. Patient was hypoxemic on presentation , with a pulse ox of 88% on room air. He was started on IV steroids, nebulized bronchodilators, Pulmicort and Perforomist, and empiric antibiotics in the form of doxycycline. Review of Systems All systems: negative Constitutional: Denies chills, Denies fever Eyes: denies blurred vision, denies pain Ears, nose, mouth and throat: Denies headache, Denies sore throat Cardiovascular: Denies chest pain, Denies shortness of breath Respiratory: Reports congestion, Reports cough with sputum, Reports dyspnea, Reports respiratory infections, Denies cough Gastrointestinal: Denies abdominal pain, Denies diarrhea, Denies nausea, Denies vomiting Genitourinary: Denies dysuria, Denies hematuria Musculoskeletal: Denies myalgias Integumentary: Denies pruritus, Denies rash Neurological: Denies numbness, Denies weakness Psychiatric: Denies anxiety, Denies depression Endocrine: Denies fatigue, Denies weight change Past Medical History Past Medical History: COPD, Hypertension, Thyroid Disorder History of Any Multi-Drug Resistant Organisms: None Reported Past Surgical History: No Surgical Hx Reported, Hysterectomy Additional Past Surgical History / Comment(s): vein stripping BLE, R knee, oophrectomy, R shoulder Past Anesthesia/Blood Transfusion Reactions: No Reported Reaction Past Psychological History: No Psychological Hx Reported Smoking Status: Former smoker Past Alcohol Use History: None Reported Past Drug Use History: None Reported - Past Family History Mother Family Medical History: Cancer, Pneumonia Additional Family Medical History / Comment(s): TB Medications and Allergies Home Medications Medication Instructions Recorded Confirmed Type Levothyroxine Sodium [Synthroid] 50 mcg PO DAILY 05/17/18 05/29/18 History Verapamil HCl 120 mg PO BID 05/17/18 05/29/18 History Ensure 1 can PO BID-W/MEALS 05/29/18 05/29/18 History Allergies Allergy/AdvReac Type Severity Reaction Status Date / Time azithromycin Allergy Unknown Verified 05/29/18 20:04 codeine Allergy Unknown Verified 05/29/18 20:04 mussels Allergy Unknown Verified 05/29/18 20:04 Sulfa (Sulfonamide Allergy Unknown Verified 05/29/18 20:04 Antibiotics) Physical Exam Vitals: Vital Signs Temp Pulse Pulse Resp BP BP BP 05/30/18 13:41 97.8 F 85 18 157/65 05/30/18 11:25 05/30/18 11:24 05/30/18 08:03 94 05/30/18 07:50 92 05/30/18 06:58 98.4 F 90 16 168/79 05/29/18 23:28 118 H 22 05/29/18 23:00 98.8 F 96 22 172/78 05/29/18 22:27 99.0 F 104 H 22 157/88 05/29/18 21:00 98.8 F 77 20 167/75 05/29/18 20:42 77 20 172/77 05/29/18 19:48 101 H 05/29/18 19:38 101 H 05/29/18 18:58 98.9 F 108 H 20 145/80 Pulse Ox 05/30/18 13:41 95 05/30/18 11:25 96 05/30/18 11:24 97 05/30/18 08:03 05/30/18 07:50 05/30/18 06:58 95 05/29/18 23:28 05/29/18 23:00 96 05/29/18 22:27 95 05/29/18 21:00 97 05/29/18 20:42 98 05/29/18 19:48 05/29/18 19:38 05/29/18 18:58 88 L Intake and Output 05/29/18 05/30/18 05/30/18 22:59 06:59 14:59 Intake Total 100 Balance 100 Intake: Oral 100 Other: # Voids 1 1 Weight 38.555 kg 40.46 kg 40.46 kg - Constitutional General appearance: average body habitus, cooperative, no acute distress, thin - EENT Eyes: EOMI ENT: NA/AT, normal oropharynx - Respiratory Respiratory: bilateral: diminished, rhonchi, wheezing, prolonged expiration - Cardiovascular Rhythm: regular Heart sounds: normal: S1, S2 ankle Peripheral Edema: bilateral: None leg Peripheral Edema: bilateral: None - Gastrointestinal General gastrointestinal: no organomegaly, soft, no tenderness - Integumentary Integumentary: normal turgor - Neurologic Neurologic: CNII-XII intact - Musculoskeletal Musculoskeletal: generalized weakness, strength equal bilaterally - Psychiatric Psychiatric: A&O x's 3, appropriate affect, intact judgment & insight Results - Laboratory Findings CBC and BMP: 05/29/18 19:42 05/29/18 19:42 PT/INR, D-dimer PT 9.6 sec (9.0-12.0) 05/29/18 19:42 INR 0.9 (<1.2) 05/29/18 19:42 Abnormal lab findings: Abnormal Labs 05/29/18 05/29/18 05/30/18 19:42 19:42 07:08 VBG pCO2 52 H Glucose 101 H POC Glucose (mg/dL) 134 H 05/30/18 12:01 VBG pCO2 Glucose POC Glucose (mg/dL) 158 H - Diagnostic Findings Chest x-ray: report reviewed, image reviewed Assessment and Plan Plan: Assessment: #1. Acute hypoxemic respiratory failure secondary to acute exacerbation of chronic obstructive pulmonary disease with purulent tracheobronchitis. #2. Recent upper respiratory infection #3. Mild COPD, baseline FEV1 of 1.5 L or 76% of predicted, not oxygen dependent at baseline #4. Left lower lobe calcified nodule #5. History of hypothyroidism #6. Chronic nicotine dependence, none for 35 years, 5-6 cigarettes per day #7. Anxiety #8. History of adrenal adenoma Plan: Continue the nebulized bronchodilators, IV steroids, Pulmicort and Perforomist, we will add doxycycline. Chest x-ray was reviewed with Dr. Gonsales, did not show any active cardiopulmonary disease. Smoking cessation was advised. I performed a history & physical examination of the patient and discussed their management with my nurse practitioner, Destinee Rico. I reviewed the nurse practitioner's note and agree with the documented findings and plan of care. Lung sounds are positive for diffuse wheezes and rhonchi. The findings and the impression was discussed with the patient. I attest to the documentation by the nurse practitioner. Time with Patient: Greater than 30
[2018-05-30 16:52] LABS: Glucose,Whole Blood 176 mg/dL (75-99)
[2018-05-30] MEDS ORDERED: ACETAMINOPHEN TAB 500 MG TAB PO PRN (18:10)
--- NOTE | 2018-05-30 20:04 | HP ---
HISTORY AND PHYSICAL DATE OF SERVICE: 05/30/2018 CHIEF COMPLAINT: Shortness of breath. HISTORY OF PRESENT ILLNESS: This 82-year-old woman with a past medical history of COPD, hypertension, hypothyroidism, history of nicotine dependence, being followed by Dr. Ebenezer Caldwell in the outpatient setting, was admitted with increased shortness of breath. The patient was complaining of more difficulty in breathing for the last 2 weeks. Because of the inability to get improved, patient was given IM antibiotics and steroids. Because of lack of improvement, the patient came to [facility] and was admitted for further evaluation and treatment. Her chest x-ray showed COPD and increased bronchovascular markings. The patient was started on broad-spectrum IV antibiotics and steroids. Dr. Price's evaluation is in progress also. PAST MEDICAL HISTORY: 1. History of COPD. 2. History of hypertension. 3. History of hypothyroidism. 4. Remote history of nicotine dependence. HOME MEDICATIONS: 1. Verapamil 120 mg p.o. b.i.d. 2. Levothyroxine 50 mcg p.o. daily. 3. Ensure 1 can b.i.d. with meals. ALLERGIES: 1. ZITHROMAX. 2. CODEINE. 3. MUSSELS. 4. SULFA. FAMILY HISTORY: History of cancer, pneumonia, TB in the family. SOCIAL HISTORY: Remote history of smoking. REVIEW OF SYSTEMS: ENT: No diminished hearing. No diminished vision. CARDIOVASCULAR SYSTEM: As mentioned earlier. RESPIRATORY SYSTEM: As mentioned earlier. GI: No nausea, vomiting. : No dysuria or retention. NERVOUS SYSTEM: No numbness, weakness. ALLERGY/IMMUNOLOGY: No asthma, hayfever. MUSCULOSKELETAL: As mentioned earlier. HEMATOLOGY/ONCOLOGY: No history of anemia. ENDOCRINE: No history of diabetes, hypothyroidism. CONSTITUTIONAL: As mentioned earlier. DERMATOLOGY: Negative. RHEUMATOLOGY: Negative. PSYCHIATRY: As mentioned earlier. PHYSICAL EXAMINATION: Patient alert and oriented x3. The pulse is 85, blood pressure 157/64, respiration 18, temperature 97.8, pulse ox 94% on 2 L. HEENT: Conjunctivae normal. Oral mucosa moist. NECK: No jugular venous distention. No carotid bruit. No lymph node enlargement. CARDIOVASCULAR SYSTEM: S1, S2 muffled. RESPIRATORY SYSTEM: Breath sounds diminished at the bases. Scattered rhonchi and crackles. Expiratory wheezing also present. Breathing efforts are markedly increased. ABDOMEN: Soft, scaphoid, non-tender. No mass palpable. LEGS: No edema. No swelling. NERVOUS SYSTEM: Diffusely weak and emaciated. Diffuse weakness. No focal deficit. No sensory abnormalities. SKIN: No ulcer, rash, bleeding. JOINTS: No active deforming arthropathy. LABS: CBC within normal limits. INR is 0.9. Accu-Cheks 134, 158. ASSESSMENT: 1. Chronic obstructive pulmonary disease, acute exacerbation, with acute purulent tracheobronchitis with failure of outpatient treatment. 2. Severe protein-calorie malnutrition with a body mass index of 15.3. 3. History of chronic obstructive pulmonary disease. 4. Hypertension. 5. Hypothyroidism. 6. History of hysterectomy. 7. Remote history of nicotine dependence. RECOMMENDATIONS AND DISCUSSION: In this 82-year-old woman who presented with multiple complex medical issues, we will monitor the patient closely, continue the current management, continue with symptomatic treatment. Will treat the patient with intensive bronchodilator treatment as well as broad-spectrum IV antibiotics, IV steroids. Otherwise, closely follow with Dr. Price. Guarded prognosis because of multiple complex medical issues. Further recommendations to follow. Patient is started on doxycycline. Prognosis guarded. Further recommendations to follow. DVT prophylaxis. MMODL / IJN: [id number] /
[2018-05-30 20:38] LABS: C Reactive Protein 23.4 mg/L (<10.0)
[2018-05-30 21:43] LABS: Glucose,Whole Blood 134 mg/dL (75-99)
[2018-05-30] MEDS: HEPARIN SODIUM,PORCINE 5,000 UNIT/ML 1 ML VIAL SQ SCH (21:50)
[2018-05-31] MEDS: methylPREDNISolone SOD SUCCI 125 MG/2 ML VIAL IV SCH ×5 (00:06→23:17)
[2018-05-31] MEDS: LEVOTHYROXINE 50 MCG TAB PO SCH (04:58)
[2018-05-31] MEDS ORDERED: ONDANSETRON 4 MG/2 ML VIAL IVP PRN (06:51)
[2018-05-31 07:18] LABS: Glucose,Whole Blood 185 mg/dL (75-99)
[2018-05-31] MEDS: DOXYCYCLINE 100 MG CAP PO SCH ×2 (07:32→21:39)
[2018-05-31] MEDS: PANTOPRAZOLE 40 MG TABLET PO SCH (08:12)
[2018-05-31] MEDS: POLYETHYLENE GLYCOL 3350 17 GM POWD.PACK PO SCH (08:12)
[2018-05-31] MEDS: VERAPAMIL 40 MG TAB PO SCH ×2 (08:12→21:39)
[2018-05-31] MEDS: MULTIVITAMINS, THERA 1 EACH TAB PO SCH (08:13)
[2018-05-31] MEDS: HEPARIN SODIUM,PORCINE 5,000 UNIT/ML 1 ML VIAL SQ SCH ×2 (08:13→21:39)
[2018-05-31] MEDS: guaiFENesin 600 MG TABLET.ER PO SCH ×2 (08:13→21:39)
[2018-05-31] MEDS: INSULIN ASPART 100 UNIT/ML 1 ML 10 ML VIAL SQ SCH ×4 (08:24→21:39)
[2018-05-31] MEDS: BUDESONIDE 0.5 MG/2 ML NEBU INHALATION SCH ×2 (09:32→21:45)
[2018-05-31 09:49] LABS: Basophils % (A) 0 %; Eosinophils # (A) 0.1 k/uL (0-0.7); Eosinophils % (A) 0 %; HCT 40.6 % (34.0-46.0); HGB 12.7 gm/dL (11.4-16.0); Hypochromasia Slight; Lymphocytes # (A) 1.6 k/uL (1.0-4.8); Lymphocytes % (A) 8 %; MCH 30.3 pg (25.0-35.0); MCHC 31.2 g/dL (31.0-37.0); Mean Platelet Volume 7.1; Monocytes # (A) 0.4 k/uL (0-1.0); Monocytes % (A) 2 %; Neutrophils # (A) 17.4 k/uL (1.3-7.7); Neutrophils % (A) 89 %; Platelet Count 220 k/uL (150-450); RBC 4.19 m/uL (3.80-5.40); RDW 13.7 % (11.5-15.5); WBC 19.7 k/uL (3.8-10.6)
[2018-05-31 09:58] LABS: Anion Gap 9 mmol/L; Blood Urea Nitrogen 15 mg/dL (7-17); Calcium 9.5 mg/dL (8.4-10.2); Carbon Dioxide 27 mmol/L (22-30); Chloride 106 mmol/L (98-107); Glucose 105 mg/dL (74-99); Potassium 3.5 mmol/L (3.5-5.1); Sodium 142 mmol/L (137-145)
[2018-05-31 11:59] LABS: Glucose,Whole Blood 154 mg/dL (75-99)
--- NOTE | 2018-05-31 15:39 | P.PN ---
Subjective Progress Note Date: 05/31/18 Principal diagnosis: Acute hypoxemic respiratory failure secondary to acute exacerbation of chronic obstructive pulmonary disease with purulent tracheobronchitis. This is a 82-year-old white female patient of Dr. Caldwell with past medical history of mild COPD, baseline FEV1 of 1.5 L or 76% of predicted, nicotine dependence, off-and-on for 35 years, hypothyroidism, anxiety, hyperlipidemia. Patient presented to the emergency department on 05/29/2018 for evaluation of difficulty breathing, cough, chest congestion, phlegm production. She denies any fever, but did have some subjective chills, she had been sick for last 2 weeks. She was seen by her primary care provider, and a I am dose of antibiotics and steroids, eating treatment and directed to the emergency department for further management. Chest x-ray did not show any active cardiopulmonary disease. There was a 1 cm calcified granuloma in the left lower lobe, was previously noted on the CT of the chest tube are 2017. No leukocytosis, electrolytes and renal profile are within normal limits, troponin was negative 1, LFTs were unremarkable. Patient was hypoxemic on presentation , with a pulse ox of 88% on room air. He was started on IV steroids, nebulized bronchodilators, Pulmicort and Perforomist, and empiric antibiotics in the form of doxycycline. The patient is seen today 10/29/2018 in follow-up on the regular medical floor. She is awake and alert in no acute distress. She is breathing a bit easier today as compared to yesterday. She is maintaining O2 saturations in the low 90s on 2 L/m per nasal cannula. She did set desaturate into the low 80s with exercise. She is maintained on DuoNeb inhalations, Pulmicort and Perforomist inhalations, IV Solu-Medrol. Antibiotics in the form of Vibramycin. Objective - Vital Signs Vital signs: Vital Signs Temp 98.3 F 05/31/18 14:04 Pulse 71 05/31/18 14:04 Resp 18 05/31/18 14:04 BP 128/63 05/31/18 14:04 Pulse Ox 90 L 05/31/18 14:04 Intake & Output 05/30/18 05/31/18 05/31/18 18:59 06:59 18:59 Intake Total 500 Balance 500 Weight 40.46 kg Intake: Oral 500 Other: # Voids 1 2 2 - Exam - Constitutional General appearance: average body habitus, cooperative, no acute distress, thin - EENT Eyes: EOMI ENT: NA/AT, normal oropharynx - Respiratory Respiratory: bilateral: diminished, rhonchi, wheezing, prolonged expiration - Cardiovascular Rhythm: regular Heart sounds: normal: S1, S2 ankle Peripheral Edema: bilateral: None leg Peripheral Edema: bilateral: None - Gastrointestinal General gastrointestinal: no organomegaly, soft, no tenderness - Integumentary Integumentary: normal turgor - Neurologic Neurologic: CNII-XII intact - Musculoskeletal Musculoskeletal: generalized weakness, strength equal bilaterally - Psychiatric Psychiatric: A&O x's 3, appropriate affect, intact judgment & insight - Labs CBC & Chem 7: 05/31/18 09:14 05/31/18 09:14 Labs: Abnormal Lab Results - Last 24 Hours (Table) 05/30/18 05/30/18 05/30/18 Range/Units 16:48 19:03 21:41 WBC (3.8-10.6) k/uL Neutrophils # (1.3-7.7) k/uL Glucose (74-99) mg/dL POC Glucose (mg/dL) 176 H 134 H (75-99) mg/dL C-Reactive Protein 23.4 H (<10.0) mg/L 05/31/18 05/31/18 05/31/18 Range/Units 07:16 09:14 09:14 WBC 19.7 H (3.8-10.6) k/uL Neutrophils # 17.4 H (1.3-7.7) k/uL Glucose 105 H (74-99) mg/dL POC Glucose (mg/dL) 185 H (75-99) mg/dL C-Reactive Protein (<10.0) mg/L 05/31/18 Range/Units 11:53 WBC (3.8-10.6) k/uL Neutrophils # (1.3-7.7) k/uL Glucose (74-99) mg/dL POC Glucose (mg/dL) 154 H (75-99) mg/dL C-Reactive Protein (<10.0) mg/L Microbiology - Last 24 Hours (Table) 05/30/18 19:05 Urine Culture - Preliminary Urine,Clean Catch 05/29/18 19:42 Blood Culture - Preliminary Blood No Growth after 24 hours Assessment and Plan Assessment: Assessment: #1. Acute hypoxemic respiratory failure secondary to acute exacerbation of chronic obstructive pulmonary disease with purulent tracheobronchitis. #2. Recent upper respiratory infection #3. Mild COPD, baseline FEV1 of 1.5 L or 76% of predicted, not oxygen dependent at baseline #4. Left lower lobe calcified nodule #5. History of hypothyroidism #6. Chronic nicotine dependence, none for 35 years, 5-6 cigarettes per day #7. Anxiety #8. History of adrenal adenoma Plan: The patient was seen and evaluated by Dr. Price. She will require home oxygen at this point. We'll continue with her current treatment plan. We'll discharge in the a.m. We will continue to follow and make further recommendations based on her clinical status. She is again educated regarding the importance of complete smoking cessation. I, the cosigning physician, performed a history & physical examination of the patient. Lungs sounds with bilateral end expiratory wheeze. Maintaining good O2 saturations in the 90s on 2 L/m per nasal cannula. I discussed the assessment and plan of care with my nurse practitioner, Sheila Mckeon. I attest to the above note as dictated by her.
[2018-05-31 17:06] LABS: Glucose,Whole Blood 190 mg/dL (75-99)
--- NOTE | 2018-05-31 18:11 | PN ---
PROGRESS NOTE DATE OF SERVICE: 05/31/2018 This 82-year-old woman who was admitted with COPD exacerbation as well as acute purulent tracheobronchitis is being closely monitored. No chest pain. No palpitations. No fever. PHYSICAL EXAMINATION: Alert and oriented x3. Pulse 71, blood pressure 138/83, respiration 18, temperature 98.3, pulse ox 90% on 2 L. HEENT: Conjunctivae normal. NECK: No jugular venous distention. CARDIOVASCULAR SYSTEM: S1, S2 muffled. RESPIRATORY SYSTEM: Breath sounds diminished at the bases. A few scattered rhonchi and crackles. ABDOMEN: Soft, non-tender. LEGS: No edema. No swelling. NERVOUS SYSTEM: No focal deficit. LABS: WBC 19.7, hemoglobin 12.7. Accu-Cheks are noted. ASSESSMENT: 1. Chronic obstructive pulmonary disease, acute exacerbation, with acute purulent tracheobronchitis with failure of outpatient treatment. 2. Severe protein-calorie malnutrition with body mass index of 15.3. 3. History of chronic obstructive pulmonary disease. 4. Hypertension. 5. Hypothyroidism. 6. History of hysterectomy. 7. Remote history of nicotine dependence. RECOMMENDATIONS AND DISCUSSION: I recommend to continue current medication, continue with the monitoring, symptomatic treatment. Otherwise at this time I would recommend continuing with the bronchodilators, steroid, antibiotics. The patient is improving significantly. Closely follow with Dr. Price. Further recommendations to follow. JESSE / KATHLEENN: [id number] /
[2018-05-31 20:42] LABS: Glucose,Whole Blood 146 mg/dL (75-99)
[2018-05-31] MEDS: IPRATROPIUM-ALBUTEROL 3 ML NEB INHALATION PRN (21:45)
[2018-05-31] MEDS: ALPRAZolam 0.25 MG TAB PO PRN (23:17)
[2018-06-01] MEDS: LEVOTHYROXINE 50 MCG TAB PO SCH (05:51)
[2018-06-01] MEDS: methylPREDNISolone SOD SUCCI 125 MG/2 ML VIAL IV SCH ×3 (05:51→17:34)
[2018-06-01 07:13] LABS: Glucose,Whole Blood 155 mg/dL (75-99)
[2018-06-01] MEDS: VERAPAMIL 40 MG TAB PO SCH ×2 (08:26→21:51)
[2018-06-01] MEDS: POLYETHYLENE GLYCOL 3350 17 GM POWD.PACK PO SCH (08:26)
[2018-06-01] MEDS: guaiFENesin 600 MG TABLET.ER PO SCH ×2 (08:26→21:50)
[2018-06-01] MEDS: PANTOPRAZOLE 40 MG TABLET PO SCH (08:26)
[2018-06-01] MEDS: DOXYCYCLINE 100 MG CAP PO SCH ×2 (08:27→21:50)
[2018-06-01] MEDS: INSULIN ASPART 100 UNIT/ML 1 ML 10 ML VIAL SQ SCH ×4 (08:27→21:51)
[2018-06-01] MEDS: HEPARIN SODIUM,PORCINE 5,000 UNIT/ML 1 ML VIAL SQ SCH ×2 (08:27→21:51)
[2018-06-01] MEDS: IPRATROPIUM-ALBUTEROL 3 ML NEB INHALATION PRN (09:22)
[2018-06-01] MEDS: MULTIVITAMINS, THERA 1 EACH TAB PO SCH ×2 (11:57→12:00)
[2018-06-01 12:07] LABS: Glucose,Whole Blood 200 mg/dL (75-99)
--- NOTE | 2018-06-01 12:47 | P.PN ---
Subjective Progress Note Date: 06/01/18 Principal diagnosis: Acute hypoxic respiratory failure secondary to COPD exacerbation and purulent tracheal bronchitis This is a 82-year-old white female patient of Dr. Caldwell with past medical history of mild COPD, baseline FEV1 of 1.5 L or 76% of predicted, nicotine dependence, off-and-on for 35 years, hypothyroidism, anxiety, hyperlipidemia. Patient presented to the emergency department on 05/29/2018 for evaluation of difficulty breathing, cough, chest congestion, phlegm production. She denies any fever, but did have some subjective chills, she had been sick for last 2 weeks. She was seen by her primary care provider, and a I am dose of antibiotics and steroids, eating treatment and directed to the emergency department for further management. Chest x-ray did not show any active cardiopulmonary disease. There was a 1 cm calcified granuloma in the left lower lobe, was previously noted on the CT of the chest tube are 2017. No leukocytosis, electrolytes and renal profile are within normal limits, troponin was negative 1, LFTs were unremarkable. Patient was hypoxemic on presentation , with a pulse ox of 88% on room air. He was started on IV steroids, nebulized bronchodilators, Pulmicort and Perforomist, and empiric antibiotics in the form of doxycycline. The patient is seen today 05/31/2018 in follow-up on the regular medical floor. She is awake and alert in no acute distress. She is breathing a bit easier today as compared to yesterday. She is maintaining O2 saturations in the low 90s on 2 L/m per nasal cannula. She did set desaturate into the low 80s with exercise. She is maintained on DuoNeb inhalations, Pulmicort and Perforomist inhalations, IV Solu-Medrol. Antibiotics in the form of Vibramycin. Patient was reevaluated today on 06/01/2018, continues to cough and wheeze and continues to have intermittent episodes of shortness of breath. Patient is maximized on bronchodilators, improving, but not improving to the point of discharge planning at this point. CBC today showed leukocytosis with WBC count of 19.7, hemoglobin is 12.7, basic metabolic profile is normal. Chest x-ray on admission failed to show any evidence of pneumonia. Patient is being treated for tracheobronchitis mostly Objective - Vital Signs Vital signs: Vital Signs Temp 97.7 F 06/01/18 05:28 Pulse 87 06/01/18 09:35 Resp 20 06/01/18 05:28 BP 134/65 06/01/18 05:28 Pulse Ox 93 L 06/01/18 09:23 Intake & Output 05/31/18 06/01/18 06/01/18 18:59 06:59 18:59 Other: # Voids 2 1 - Exam Physical Exam: Revealed a 82-year-old female, pleasant, in no distress. Head: Atraumatic, normocephalic. Lymphatics: No lymphadenopathy. HEENT:[Neck is supple.] [No neck masses.] [No thyromegaly.] [No JVD.] PERRLA, EOMI, no icterus. Chest: Diffuse crackles and rhonchi and wheezes noted bilaterally more so on forced expiratory maneuver. Cardiac Exam: [Normal S1 and S2, no S3 gallop, no murmur.] Abdomen: [Soft, nontender, no megaly, no rebound, no guarding, normal bowel sounds.] Extremities: [No clubbing, no edema, no cyanosis.] Neurological Exam: [No focal neurologic deficit. Psychiatric: Normal mood, affect and mental status examination. Skin: No rashes ] - Labs CBC & Chem 7: 05/31/18 09:14 05/31/18 09:14 Labs: Abnormal Lab Results - Last 24 Hours (Table) 05/31/18 05/31/18 06/01/18 Range/Units 17:04 20:41 07:09 POC Glucose (mg/dL) 190 H 146 H 155 H (75-99) mg/dL 06/01/18 Range/Units 12:04 POC Glucose (mg/dL) 200 H (75-99) mg/dL Microbiology - Last 24 Hours (Table) 05/30/18 19:05 Urine Culture - Final Urine,Clean Catch 05/29/18 19:42 Blood Culture - Preliminary Blood No Growth after 48 hours Assessment and Plan Assessment: #1. Acute hypoxemic respiratory failure secondary to acute exacerbation of chronic obstructive pulmonary disease with purulent tracheobronchitis. No evidence of pneumonia noted on the chest x-ray upon admission. #2. Recent upper respiratory infection #3. Mild COPD, baseline FEV1 of 1.5 L or 76% of predicted, not oxygen dependent at baseline #4. Left lower lobe calcified nodule #5. History of hypothyroidism #6. Chronic nicotine dependence, none for 35 years, 5-6 cigarettes per day #7. Anxiety #8. History of adrenal adenoma Recommendation: Continue present meds including oxygen, bronchodilators, antibiotics, steroids, counseled again on smoking cessation, patient is not quite ready for discharge planning at this point, continues to have significant findings on physical examination mostly rhonchi and wheezes, I anticipate the patient may be ready in the next 48 hours. We'll continue to follow. Time with Patient: Less than 30
[2018-06-01 13:13] LABS: Basophils % (A) 0 %; Eosinophils % (A) 0 %; HCT 39.1 % (34.0-46.0); HGB 12.4 gm/dL (11.4-16.0); Hypochromasia Slight; Lymphocytes # (A) 0.6 k/uL (1.0-4.8); Lymphocytes % (A) 4 %; MCH 30.4 pg (25.0-35.0); MCHC 31.6 g/dL (31.0-37.0); MCV 96.1 fL (80.0-100.0); Mean Platelet Volume 7.4; Monocytes # (A) 0.5 k/uL (0-1.0); Monocytes % (A) 3 %; Neutrophils # (A) 13.1 k/uL (1.3-7.7); Neutrophils % (A) 91 %; Platelet Count 225 k/uL (150-450); RBC 4.07 m/uL (3.80-5.40); RDW 13.9 % (11.5-15.5); WBC 14.4 k/uL (3.8-10.6)
[2018-06-01 13:25] LABS: Anion Gap 9 mmol/L; Blood Urea Nitrogen 24 mg/dL (7-17); Calcium 9.8 mg/dL (8.4-10.2); Carbon Dioxide 26 mmol/L (22-30); Chloride 107 mmol/L (98-107); Glucose 157 mg/dL (74-99); Potassium 3.6 mmol/L (3.5-5.1); Sodium 142 mmol/L (137-145)
[2018-06-01 16:56] LABS: Glucose,Whole Blood 144 mg/dL (75-99)
[2018-06-01 20:59] LABS: Glucose,Whole Blood 155 mg/dL (75-99)
[2018-06-02] MEDS: methylPREDNISolone SOD SUCCI 125 MG/2 ML VIAL IV SCH ×4 (00:05→17:52)
[2018-06-02] MEDS: LEVOTHYROXINE 50 MCG TAB PO SCH (06:05)
[2018-06-02 07:19] LABS: Glucose,Whole Blood 137 mg/dL (75-99)
--- NOTE | 2018-06-02 07:43 | PN ---
PROGRESS NOTE DATE OF SERVICE: 06/01/2018 This 82-year-old woman was admitted with COPD exacerbation with acute peritracheal bronchitis, being closely monitored. The patient still has shortness of breath. The patient has severe protein calorie malnutrition also. No chest pain. No palpitations. No fever. Lungs are slightly better to auscultation today. Dr. Price is following the patient closely. EXAM: Alert and oriented x3. Pulse 90, blood pressure 150/60, respiration 20, temperature 98.2, pulse ox 96% on 2 L. HEENT: Conjunctivae normal. Oral mucosa moist. NECK: No jugular venous distention. No lymph node enlargement. CARDIOVASCULAR: S1, S2. RESPIRATORY: Diminished breath sounds muffled at the bases. Bilateral scattered rhonchi and crackles. ABDOMEN: Soft, nontender. LEGS: No swelling. NERVOUS SYSTEM: Diffusely weak and emaciated. BMI 15.3. LAB STUDIES: WBC 14.4. Accu-Cheks 157, 144. ASSESSMENT: 1. Chronic obstructive pulmonary disease acute exacerbation with acute purulent tracheobronchitis with failure of outpatient treatment. 2. Severe protein calorie malnutrition with BMI of 15.3. 3. History of chronic obstructive pulmonary disease. 4. Hypertension. 5. Hypothyroid. 6. History of hysterectomy. 7. Remote history of nicotine dependence. 8. Gait dysfunction. RECOMMENDATIONS AND DISCUSSION: In this 82-year-old woman who presented with multiple complex medical issues, we will monitor the patient closely, continue the current management, continue symptomatic treatment. Will continue with IV steroids. Continue the bronchodilators. Continue with empiric antibiotics. Patient is on doxycycline. We will also obtain a PT/OT evaluation and possible ECF rehab also. Prognosis is extremely guarded because of multiple complex medical issues and further recommendations to follow. MMODL / IJN: [id number] /
[2018-06-02] MEDS: PANTOPRAZOLE 40 MG TABLET PO SCH (08:06)
[2018-06-02] MEDS: guaiFENesin 600 MG TABLET.ER PO SCH ×2 (08:06→21:35)
[2018-06-02] MEDS: POLYETHYLENE GLYCOL 3350 17 GM POWD.PACK PO SCH (08:06)
[2018-06-02] MEDS: VERAPAMIL 40 MG TAB PO SCH ×2 (08:06→21:35)
[2018-06-02] MEDS: DOXYCYCLINE 100 MG CAP PO SCH ×2 (08:06→21:35)
[2018-06-02] MEDS: INSULIN ASPART 100 UNIT/ML 1 ML 10 ML VIAL SQ SCH ×4 (08:07→21:36)
[2018-06-02] MEDS: HEPARIN SODIUM,PORCINE 5,000 UNIT/ML 1 ML VIAL SQ SCH ×2 (08:07→21:35)
[2018-06-02 11:26] LABS: Basophils % (A) 0 %; Eosinophils % (A) 0 %; HCT 37.3 % (34.0-46.0); HGB 11.9 gm/dL (11.4-16.0); Lymphocytes # (A) 0.7 k/uL (1.0-4.8); Lymphocytes % (A) 7 %; MCH 30.3 pg (25.0-35.0); MCHC 31.9 g/dL (31.0-37.0); MCV 95.1 fL (80.0-100.0); Monocytes # (A) 0.4 k/uL (0-1.0); Monocytes % (A) 4 %; Neutrophils # (A) 9.9 k/uL (1.3-7.7); Neutrophils % (A) 89 %; Platelet Count 241 k/uL (150-450); RBC 3.93 m/uL (3.80-5.40); RDW 13.8 % (11.5-15.5); WBC 11.1 k/uL (3.8-10.6)
[2018-06-02 11:46] LABS: Anion Gap 6 mmol/L; Blood Urea Nitrogen 27 mg/dL (7-17); Calcium 9.2 mg/dL (8.4-10.2); Carbon Dioxide 29 mmol/L (22-30); Chloride 105 mmol/L (98-107); Glucose 181 mg/dL (74-99); Potassium 3.4 mmol/L (3.5-5.1); Sodium 140 mmol/L (137-145)
[2018-06-02 12:14] LABS: Glucose,Whole Blood 190 mg/dL (75-99)
[2018-06-02] MEDS: MULTIVITAMINS, THERA 1 EACH TAB PO SCH (12:45)
--- NOTE | 2018-06-02 16:14 | P.PN ---
Subjective Progress Note Date: 06/02/18 Principal diagnosis: Acute hypoxic respiratory failure secondary to COPD exacerbation and purulent tracheal bronchitis This is a 82-year-old white female patient of Dr. Caldwell with past medical history of mild COPD, baseline FEV1 of 1.5 L or 76% of predicted, nicotine dependence, off-and-on for 35 years, hypothyroidism, anxiety, hyperlipidemia. Patient presented to the emergency department on 05/29/2018 for evaluation of difficulty breathing, cough, chest congestion, phlegm production. She denies any fever, but did have some subjective chills, she had been sick for last 2 weeks. She was seen by her primary care provider, and a I am dose of antibiotics and steroids, eating treatment and directed to the emergency department for further management. Chest x-ray did not show any active cardiopulmonary disease. There was a 1 cm calcified granuloma in the left lower lobe, was previously noted on the CT of the chest tube are 2017. No leukocytosis, electrolytes and renal profile are within normal limits, troponin was negative 1, LFTs were unremarkable. Patient was hypoxemic on presentation , with a pulse ox of 88% on room air. He was started on IV steroids, nebulized bronchodilators, Pulmicort and Perforomist, and empiric antibiotics in the form of doxycycline. The patient is seen today 05/31/2018 in follow-up on the regular medical floor. She is awake and alert in no acute distress. She is breathing a bit easier today as compared to yesterday. She is maintaining O2 saturations in the low 90s on 2 L/m per nasal cannula. She did set desaturate into the low 80s with exercise. She is maintained on DuoNeb inhalations, Pulmicort and Perforomist inhalations, IV Solu-Medrol. Antibiotics in the form of Vibramycin. Patient was reevaluated today on 06/01/2018, continues to cough and wheeze and continues to have intermittent episodes of shortness of breath. Patient is maximized on bronchodilators, improving, but not improving to the point of discharge planning at this point. CBC today showed leukocytosis with WBC count of 19.7, hemoglobin is 12.7, basic metabolic profile is normal. Chest x-ray on admission failed to show any evidence of pneumonia. Patient is being treated for tracheobronchitis mostly Patient was reevaluated today on 06/02/2018, not much of a change, continues to cough and wheeze continues to have shortness of breath. No fever no chills no hemoptysis. Chest x-ray on admission showed no evidence of active disease. However the patient is not improving much in spite of multiple bronchodilators, antibiotics, and steroids. I have a feeling that the patient may eventually require to be bronchoscoped. But I will go ahead and recommended repeat chest x -ray to be done in a.m. Objective - Vital Signs Vital signs: Vital Signs Temp 98.3 F 06/02/18 15:00 Pulse 91 06/02/18 15:00 Resp 20 06/02/18 15:00 BP 165/71 06/02/18 15:00 Pulse Ox 93 L 06/02/18 15:00 Intake & Output 06/01/18 06/02/18 06/02/18 18:59 06:59 18:59 Intake Total 600 Balance 600 Intake: Oral 600 Tube Feeding 0 Other: # Voids 1 3 1 - Exam Physical Exam: Revealed a 82-year-old female, pleasant, in no distress. Head: Atraumatic, normocephalic. Lymphatics: No lymphadenopathy. HEENT:[Neck is supple.] [No neck masses.] [No thyromegaly.] [No JVD.] PERRLA, EOMI, no icterus. Chest: Diffuse crackles and rhonchi and wheezes noted bilaterally Cardiac Exam: [Normal S1 and S2, no S3 gallop, no murmur.] Abdomen: [Soft, nontender, no megaly, no rebound, no guarding, normal bowel sounds.] Extremities: [No clubbing, no edema, no cyanosis.] Neurological Exam: [No focal neurologic deficit. Psychiatric: Normal mood, affect and mental status examination. Skin: No rashes ] - Labs CBC & Chem 7: 06/02/18 10:59 06/02/18 10:59 Labs: Abnormal Lab Results - Last 24 Hours (Table) 06/01/18 06/01/18 06/02/18 Range/Units 16:52 20:58 07:11 WBC (3.8-10.6) k/uL Neutrophils # (1.3-7.7) k/uL Lymphocytes # (1.0-4.8) k/uL Potassium (3.5-5.1) mmol/L BUN (7-17) mg/dL Glucose (74-99) mg/dL POC Glucose (mg/dL) 144 H 155 H 137 H (75-99) mg/dL 06/02/18 06/02/18 06/02/18 Range/Units 10:59 10:59 11:50 WBC 11.1 H (3.8-10.6) k/uL Neutrophils # 9.9 H (1.3-7.7) k/uL Lymphocytes # 0.7 L (1.0-4.8) k/uL Potassium 3.4 L (3.5-5.1) mmol/L BUN 27 H (7-17) mg/dL Glucose 181 H (74-99) mg/dL POC Glucose (mg/dL) 190 H (75-99) mg/dL Microbiology - Last 24 Hours (Table) 05/29/18 19:42 Blood Culture - Preliminary Blood No Growth after 72 hours Assessment and Plan Assessment: #1. Acute hypoxemic respiratory failure secondary to acute exacerbation of chronic obstructive pulmonary disease with purulent tracheobronchitis. No evidence of pneumonia noted on the chest x-ray upon admission. #2. Recent upper respiratory infection #3. Mild COPD, baseline FEV1 of 1.5 L or 76% of predicted, not oxygen dependent at baseline #4. Left lower lobe calcified nodule #5. History of hypothyroidism #6. Chronic nicotine dependence, none for 35 years, 5-6 cigarettes per day #7. Anxiety #8. History of adrenal adenoma Recommendation: Continue present meds including oxygen, bronchodilators, antibiotics, steroids, counseled again on smoking cessation, patient is not quite ready for discharge planning at this point, continues to have significant findings on physical examination mostly rhonchi and wheezes, I plan to repeat her chest x-ray in a.m., may have to be considered for possible bronchoscopy if she does not improve much in the next couple of days. Attitude be decided upon by Dr. Chiu who will be seeing the patient tomorrow. Again not ready for discharge planning at this point. Time with Patient: Less than 30
[2018-06-02 17:26] LABS: Glucose,Whole Blood 155 mg/dL (75-99)
[2018-06-02 20:57] LABS: Glucose,Whole Blood 134 mg/dL (75-99)
[2018-06-02] MEDS: BISACODYL 10 MG SUPP RECTAL SCH (21:37)
[2018-06-02] MEDS: ALPRAZolam 0.25 MG TAB PO PRN (21:43)
--- NOTE | 2018-06-03 00:04 | PN ---
PROGRESS NOTE DATE OF SERVICE: 06/02/2018. HISTORY: This 82-year-old woman who was admitted with COPD acute exacerbation with acute purulent tracheobronchitis also had severe protein calorie malnutrition. No chest pain. No palpitations. No fever. EXAM: Alert and oriented x3. Pulse 91, blood pressure 160/70, respirations 20, temperature 98.2, pulse ox 93% on 2 L. HEENT: Conjunctivae normal. NECK: No JVD. No carotid bruits. LUNGS: Breath sounds diminished at the bases. No rhonchi or crackles. ABDOMEN: Soft, nontender. LEGS: No edema, no swelling. LABS: WBC 7.1, sodium 140, potassium 3.5, Accu-Cheks are noted. ASSESSMENT: 1. Chronic obstructive pulmonary disease acute exacerbation with acute purulent tracheobronchitis with failure of outpatient treatment. 2. Severe protein calorie malnutrition BMI of 15.3. 3. History of chronic obstructive pulmonary disease. 4. History of hypertension. 5. History of hypothyroidism. 6. History of hysterectomy. 7. Remote history of nicotine dependence. 8. Gait dysfunction. RECOMMENDATIONS: Recommend to continue current medications, steroids, continue the antibiotics, continue the bronchodilators. Prognosis guarded because of multiple complex medical issues. Further recommendations to follow. MMODL / IJN: [id number] /
[2018-06-03] MEDS: methylPREDNISolone SOD SUCCI 125 MG/2 ML VIAL IV SCH ×5 (00:08→23:06)
[2018-06-03] MEDS ORDERED: Potassium Replacement Protocol 1 EACH MISC MISCELLANE PRN ×2 (01:13→10:19)
[2018-06-03] MEDS: LEVOTHYROXINE 50 MCG TAB PO SCH (05:25)
[2018-06-03 07:10] LABS: Glucose,Whole Blood 124 mg/dL (75-99)
[2018-06-03] MEDS: INSULIN ASPART 100 UNIT/ML 1 ML 10 ML VIAL SQ SCH ×4 (08:03→21:36)
[2018-06-03] MEDS: MULTIVITAMINS, THERA 1 EACH TAB PO SCH (08:08)
[2018-06-03] MEDS: VERAPAMIL 40 MG TAB PO SCH ×2 (08:08→19:51)
[2018-06-03] MEDS: POLYETHYLENE GLYCOL 3350 17 GM POWD.PACK PO SCH (08:08)
[2018-06-03] MEDS: PANTOPRAZOLE 40 MG TABLET PO SCH (08:08)
[2018-06-03] MEDS: HEPARIN SODIUM,PORCINE 5,000 UNIT/ML 1 ML VIAL SQ SCH ×2 (08:08→19:51)
[2018-06-03] MEDS: guaiFENesin 600 MG TABLET.ER PO SCH ×2 (08:08→19:50)
[2018-06-03] MEDS: DOXYCYCLINE 100 MG CAP PO SCH ×2 (08:12→20:13)
[2018-06-03 10:17] LABS: Anion Gap 9 mmol/L; Blood Urea Nitrogen 19 mg/dL (7-17); Calcium 9.2 mg/dL (8.4-10.2); Carbon Dioxide 32 mmol/L (22-30); Chloride 99 mmol/L (98-107); Glucose 192 mg/dL (74-99); Sodium 140 mmol/L (137-145)
[2018-06-03 10:20] LABS: Basophils % (A) 0 %; Eosinophils % (A) 0 %; HCT 42.9 % (34.0-46.0); HGB 13.3 gm/dL (11.4-16.0); Lymphocytes % (A) 11 %; MCH 29.3 pg (25.0-35.0); MCV 94.5 fL (80.0-100.0); Mean Platelet Volume 6.8; Monocytes # (A) 0.3 k/uL (0-1.0); Monocytes % (A) 3 %; Neutrophils # (A) 7.6 k/uL (1.3-7.7); Neutrophils % (A) 85 %; Platelet Count 269 k/uL (150-450); RBC 4.54 m/uL (3.80-5.40); RDW 13.7 % (11.5-15.5); WBC 8.9 k/uL (3.8-10.6)
[2018-06-03] MEDS: POTASSIUM CHLORIDE ER 20 MEQ TAB.ER PO SCH ×2 (10:54→12:07)
--- NOTE | 2018-06-03 11:24 | XR ---
EXAMINATION TYPE: XR chest 1V portable DATE OF EXAM: 06/03/2018 COMPARISON: Prior chest x-ray 05/29/[address] 03/07/2018 HISTORY: COPD and shortness of breath TECHNIQUE: Single frontal view of the chest is obtained. FINDINGS: There is no focal air space opacity, pleural effusion, or pneumothorax seen. There is calc ified granuloma at the level of the left lower lobe. There is underlying emphysematous change The ca rdiac silhouette size is stable. Postop change noted to the right shoulder. The aorta is dense. IMPRESSION: Emphysema
[2018-06-03 11:42] LABS: Glucose,Whole Blood 132 mg/dL (75-99)
--- NOTE | 2018-06-03 16:02 | P.PN ---
Subjective Progress Note Date: 06/03/18 Principal diagnosis: Acute hypoxic respiratory failure secondary to COPD exacerbation and purulent tracheobronchitis This is a 82-year-old white female patient of Dr. Caldwell with past medical history of mild COPD, baseline FEV1 of 1.5 L or 76% of predicted, nicotine dependence, off-and-on for 35 years, hypothyroidism, anxiety, hyperlipidemia. Patient presented to the emergency department on 05/29/2018 for evaluation of difficulty breathing, cough, chest congestion, phlegm production. She denies any fever, but did have some subjective chills, she had been sick for last 2 weeks. She was seen by her primary care provider, and a I am dose of antibiotics and steroids, eating treatment and directed to the emergency department for further management. Chest x-ray did not show any active cardiopulmonary disease. There was a 1 cm calcified granuloma in the left lower lobe, was previously noted on the CT of the chest tube are 2017. No leukocytosis, electrolytes and renal profile are within normal limits, troponin was negative 1, LFTs were unremarkable. Patient was hypoxemic on presentation , with a pulse ox of 88% on room air. He was started on IV steroids, nebulized bronchodilators, Pulmicort and Perforomist, and empiric antibiotics in the form of doxycycline. The patient is seen today 05/31/2018 in follow-up on the regular medical floor. She is awake and alert in no acute distress. She is breathing a bit easier today as compared to yesterday. She is maintaining O2 saturations in the low 90s on 2 L/m per nasal cannula. She did set desaturate into the low 80s with exercise. She is maintained on DuoNeb inhalations, Pulmicort and Perforomist inhalations, IV Solu-Medrol. Antibiotics in the form of Vibramycin. Patient was reevaluated today on 06/01/2018, continues to cough and wheeze and continues to have intermittent episodes of shortness of breath. Patient is maximized on bronchodilators, improving, but not improving to the point of discharge planning at this point. CBC today showed leukocytosis with WBC count of 19.7, hemoglobin is 12.7, basic metabolic profile is normal. Chest x-ray on admission failed to show any evidence of pneumonia. Patient is being treated for tracheobronchitis mostly Patient was reevaluated today on 06/02/2018, not much of a change, continues to cough and wheeze continues to have shortness of breath. No fever no chills no hemoptysis. Chest x-ray on admission showed no evidence of active disease. However the patient is not improving much in spite of multiple bronchodilators, antibiotics, and steroids. I have a feeling that the patient may eventually require to be bronchoscoped. But I will go ahead and recommended repeat chest x -ray to be done in a.m. On 06/03/2018 patient seen in follow-up on medical surgical floor. Patient is complaining of generalized weakness, and exertional dyspnea. Repeat chest x- ray showed changes consistent with emphysema, calcified granuloma at the left lower lobe, no acute pulmonary process. Currently on 2 L per nasal cannula patient is satting 90%, afebrile, hemodynamically stable. Lung sounds are positive for coarse rhonchi. Blood and urine cultures remain negative. Today' s lab work has been reviewed, CBC was within normal limits, sodium is 140, potassium is 3.0, CO2 is 32, BUN was 19, creatinine is 0.48. Patient is on oral doxycycline, nebulized bronchodilators and IV steroids, making slow improvement, still quite dyspneic with any exertion. Objective - Vital Signs Vital signs: Vital Signs Temp 98 F 06/03/18 05:50 Pulse 84 06/03/18 05:50 Resp 20 06/03/18 05:50 BP 173/73 06/03/18 05:50 Pulse Ox 93 L 06/03/18 05:50 Intake & Output 06/02/18 06/03/18 06/03/18 18:59 06:59 18:59 Intake Total 600 500 Balance 600 500 Weight 40.46 kg 40.46 kg Intake: Oral 600 500 Tube Feeding 0 Other: # Voids 1 2 2 # Bowel Movements 1 - Exam Physical Exam: Revealed a 82-year-old female, pleasant, in no distress. Head: Atraumatic, normocephalic. Lymphatics: No lymphadenopathy. HEENT:[Neck is supple.] [No neck masses.] [No thyromegaly.] [No JVD.] PERRLA, EOMI, no icterus. Chest: Diffuse rhonchi Cardiac Exam: [Normal S1 and S2, no S3 gallop, no murmur.] Abdomen: [Soft, nontender, no megaly, no rebound, no guarding, normal bowel sounds.] Extremities: [No clubbing, no edema, no cyanosis.] Neurological Exam: [No focal neurologic deficit. Psychiatric: Normal mood, affect and mental status examination. Skin: No rashes ] - Labs CBC & Chem 7: 06/03/18 09:25 06/03/18 09:25 Labs: Abnormal Lab Results - Last 24 Hours (Table) 06/02/18 06/02/18 06/03/18 Range/Units 17:19 20:51 07:04 Potassium (3.5-5.1) mmol/L Carbon Dioxide (22-30) mmol/L BUN (7-17) mg/dL Creatinine (0.52-1.04) mg/dL Glucose (74-99) mg/dL POC Glucose (mg/dL) 155 H 134 H 124 H (75-99) mg/dL 06/03/18 06/03/18 Range/Units 09:25 11:36 Potassium 3.0 L (3.5-5.1) mmol/L Carbon Dioxide 32 H (22-30) mmol/L BUN 19 H (7-17) mg/dL Creatinine 0.48 L (0.52-1.04) mg/dL Glucose 192 H (74-99) mg/dL POC Glucose (mg/dL) 132 H (75-99) mg/dL Microbiology - Last 24 Hours (Table) 05/29/18 19:42 Blood Culture - Preliminary Blood No Growth after 96 hours Assessment and Plan Plan: Assessment: #1. Acute hypoxemic respiratory failure secondary to acute exacerbation of chronic obstructive pulmonary disease with purulent tracheobronchitis. #2. Recent upper respiratory infection #3. Mild COPD, baseline FEV1 of 1.5 L or 76% of predicted, not oxygen dependent at baseline #4. Left lower lobe calcified nodule #5. History of hypothyroidism #6. Chronic nicotine dependence, none for 35 years, 5-6 cigarettes per day #7. Anxiety #8. History of adrenal adenoma Plan: Continue IV steroids, continue nebulized bronchodilators empiric antibiotics. She continues to have significant exertional dyspnea, and weakness. Not quite ready for discharge, we'll continue to follow, today's chest x-ray has been reviewed with Dr. Dr. Chiu, showed emphysematous changes, no acute process. I performed a history & physical examination of the patient and discussed their management with my nurse practitioner, Destinee Rico. I reviewed the nurse practitioner's note and agree with the documented findings and plan of care. Lung sounds are positive for diffuse wheezes and rhonchi. The findings and the impression was discussed with the patient. I attest to the documentation by the nurse practitioner. Time with Patient: Less than 30
[2018-06-03 17:07] LABS: Glucose,Whole Blood 193 mg/dL (75-99)
[2018-06-03 18:48] LABS: Magnesium 1.7 mg/dL (1.6-2.3); Potassium 3.5 mmol/L (3.5-5.1)
--- NOTE | 2018-06-03 18:49 | PN ---
PROGRESS NOTE 83-year-old woman was admitted with COPD exacerbation as well as acute bronchitis, also history had severe protein malnutrition. The most recent chest x-ray done today which was reviewed by me showed emphysema only. Dr. Chiu is following the patient closely today. No chest pain. No palpitations. The patient still complaining of increased shortness of breath and cough and sputum also. EXAM: Alert and oriented times three. The pulse 90, blood pressure 160/70, respiration 16, temperature 98.4, pulse ox 94% on 4 L. HEENT: Conjunctivae normal. Oral mucosa moist. NECK: No jugular venous distention. CARDIOVASCULAR: S1, S2 muffled. RESPIRATION: Breath sounds diminished in the bases. Scattered rhonchi and crackles. Breathing efforts are markedly increased. ABDOMEN: Soft. LEGS: No edema, no swelling. CENTRAL NERVOUS SYSTEM: No focal deficits. LAB: Sodium 140, potassium 3, glucose noted. ASSESSMENT: 1. Chronic obstructive pulmonary disease acute exacerbation with acute purulent tracheobronchitis with failure of outpatient treatment. 2. Severe protein malnutrition with a BMI of 15.3. 3. History of chronic obstructive pulmonary disease. 4. Hypokalemia. 5. Hypertension. 6. Hypothyroidism. 7. History of hysterectomy. 8. Remote history of nicotine dependence. 9. Gait dysfunction. RECOMMENDATIONS AND DISCUSSION: Recommend to continue current medications and symptomatic treatment. Otherwise at this time I recommend continue with IV steroids. Continue with antibiotics. We will replace potassium. Guarded prognosis because of multiple complex medical issues. Further recommendations to follow. We will repeat lytes also. MMODL / IJN: [id number] /
[2018-06-03] MEDS: IPRATROPIUM-ALBUTEROL 3 ML NEB INHALATION PRN (19:02)
[2018-06-03] MEDS: BUDESONIDE 1 MG/2 ML NEBU INHALATION SCH (19:05)
[2018-06-03] MEDS: FORMOTEROL FUMARATE 20 MCG/2 ML NEBU INHALATION SCH (19:06)
[2018-06-03] MEDS: MONTELUKAST 10 MG TAB PO SCH (19:50)
[2018-06-03] MEDS: BISACODYL 10 MG SUPP RECTAL SCH (19:51)
[2018-06-03 21:34] LABS: Glucose,Whole Blood 167 mg/dL (75-99)
[2018-06-04] MEDS: ALPRAZolam 0.25 MG TAB PO PRN (00:10)
[2018-06-04] MEDS: LEVOTHYROXINE 50 MCG TAB PO SCH (05:43)
[2018-06-04] MEDS: methylPREDNISolone SOD SUCCI 125 MG/2 ML VIAL IV SCH ×3 (05:43→17:56)
[2018-06-04 07:31] LABS: Glucose,Whole Blood 130 mg/dL (75-99)
[2018-06-04] MEDS: INSULIN ASPART 100 UNIT/ML 1 ML 10 ML VIAL SQ SCH ×4 (07:32→21:05)
[2018-06-04] MEDS: DOXYCYCLINE 100 MG CAP PO SCH ×2 (07:43→21:05)
[2018-06-04] MEDS: VERAPAMIL 40 MG TAB PO SCH ×2 (07:43→21:05)
[2018-06-04] MEDS: POLYETHYLENE GLYCOL 3350 17 GM POWD.PACK PO SCH (07:44)
[2018-06-04] MEDS: guaiFENesin 600 MG TABLET.ER PO SCH ×2 (07:44→21:05)
[2018-06-04] MEDS: HEPARIN SODIUM,PORCINE 5,000 UNIT/ML 1 ML VIAL SQ SCH ×2 (07:44→21:05)
[2018-06-04] MEDS: PANTOPRAZOLE 40 MG TABLET PO SCH (07:44)
[2018-06-04] MEDS: MULTIVITAMINS, THERA 1 EACH TAB PO SCH (07:44)
[2018-06-04] MEDS: IPRATROPIUM-ALBUTEROL 3 ML NEB INHALATION PRN ×2 (07:50→19:45)
[2018-06-04] MEDS: FORMOTEROL FUMARATE 20 MCG/2 ML NEBU INHALATION SCH ×2 (07:50→19:44)
[2018-06-04] MEDS: BUDESONIDE 1 MG/2 ML NEBU INHALATION SCH ×2 (07:50→19:44)
[2018-06-04 11:21] LABS: Basophils % (A) 0 %; Eosinophils # (A) 0.1 k/uL (0-0.7); Eosinophils % (A) 1 %; HCT 42.5 % (34.0-46.0); HGB 13.4 gm/dL (11.4-16.0); Lymphocytes # (A) 0.7 k/uL (1.0-4.8); Lymphocytes % (A) 8 %; MCH 30.2 pg (25.0-35.0); MCHC 31.7 g/dL (31.0-37.0); MCV 95.4 fL (80.0-100.0); Mean Platelet Volume 7.9; Monocytes # (A) 0.3 k/uL (0-1.0); Monocytes % (A) 4 %; Neutrophils # (A) 7.5 k/uL (1.3-7.7); Neutrophils % (A) 86 %; Platelet Count 272 k/uL (150-450); RBC 4.45 m/uL (3.80-5.40); RDW 13.8 % (11.5-15.5); WBC 8.7 k/uL (3.8-10.6)
[2018-06-04 11:38] LABS: Glucose,Whole Blood 185 mg/dL (75-99)
[2018-06-04 12:49] LABS: Anion Gap 4 mmol/L; Blood Urea Nitrogen 27 mg/dL (7-17); Calcium 8.9 mg/dL (8.4-10.2); Carbon Dioxide 35 mmol/L (22-30); Chloride 100 mmol/L (98-107); Glucose 153 mg/dL (74-99); Potassium 3.5 mmol/L (3.5-5.1); Sodium 139 mmol/L (137-145)
--- NOTE | 2018-06-04 14:27 | P.PN ---
Subjective Progress Note Date: 06/04/18 Principal diagnosis: Acute hypoxemic respiratory failure secondary to acute exacerbation of chronic obstructive pulmonary disease with purulent tracheobronchitis. This is a 82-year-old white female patient of Dr. Caldwell with past medical history of mild COPD, baseline FEV1 of 1.5 L or 76% of predicted, nicotine dependence, off-and-on for 35 years, hypothyroidism, anxiety, hyperlipidemia. Patient presented to the emergency department on 05/29/2018 for evaluation of difficulty breathing, cough, chest congestion, phlegm production. She denies any fever, but did have some subjective chills, she had been sick for last 2 weeks. She was seen by her primary care provider, and a I am dose of antibiotics and steroids, eating treatment and directed to the emergency department for further management. Chest x-ray did not show any active cardiopulmonary disease. There was a 1 cm calcified granuloma in the left lower lobe, was previously noted on the CT of the chest tube are 2017. No leukocytosis, electrolytes and renal profile are within normal limits, troponin was negative 1, LFTs were unremarkable. Patient was hypoxemic on presentation , with a pulse ox of 88% on room air. He was started on IV steroids, nebulized bronchodilators, Pulmicort and Perforomist, and empiric antibiotics in the form of doxycycline. The patient is seen today 06/04/2017 in follow-up on the regular medical floor. She is awake and alert in no acute distress. Her cough is less. She is still dyspneic on minimal exertion. Still wheezing. He is currently afebrile. Maintaining O2 saturations in the 90s on 2 L/m per nasal cannula. She's hemodynamically stable. Blood culture reveals no growth. Urine culture no growth. White count 8.7. Hemoglobin 13.4. Creatinine 0.50. Objective - Vital Signs Vital signs: Vital Signs Temp 97.1 F L 06/04/18 07:33 Pulse 92 06/04/18 08:04 Resp 16 06/04/18 07:33 BP 161/82 06/04/18 07:33 Pulse Ox 92 L 06/04/18 07:33 Intake & Output 06/03/18 06/04/18 06/04/18 18:59 06:59 18:59 Intake Total 600 900 Balance 600 900 Weight 40.46 kg 40.46 kg Intake: Oral 600 900 Other: # Voids 3 1 # Bowel Movements 2 - Exam - Constitutional General appearance: average body habitus, cooperative, no acute distress, thin - EENT Eyes: EOMI ENT: NA/AT, normal oropharynx - Respiratory Respiratory: bilateral: diminished, rhonchi, wheezing, prolonged expiration - Cardiovascular Rhythm: regular Heart sounds: normal: S1, S2 ankle Peripheral Edema: bilateral: None leg Peripheral Edema: bilateral: None - Gastrointestinal General gastrointestinal: no organomegaly, soft, no tenderness - Integumentary Integumentary: normal turgor - Neurologic Neurologic: CNII-XII intact - Musculoskeletal Musculoskeletal: generalized weakness, strength equal bilaterally - Psychiatric Psychiatric: A&O x's 3, appropriate affect, intact judgment & insight - Labs CBC & Chem 7: 06/04/18 11:01 06/04/18 12:06 Labs: Abnormal Lab Results - Last 24 Hours (Table) 06/03/18 06/03/18 06/03/18 Range/Units 16:50 18:27 21:33 Lymphocytes # (1.0-4.8) k/uL Carbon Dioxide 33 H (22-30) mmol/L BUN (7-17) mg/dL Creatinine (0.52-1.04) mg/dL Glucose (74-99) mg/dL POC Glucose (mg/dL) 193 H 167 H (75-99) mg/dL 06/04/18 06/04/18 06/04/18 Range/Units 07:28 11:01 11:35 Lymphocytes # 0.7 L (1.0-4.8) k/uL Carbon Dioxide (22-30) mmol/L BUN (7-17) mg/dL Creatinine (0.52-1.04) mg/dL Glucose (74-99) mg/dL POC Glucose (mg/dL) 130 H 185 H (75-99) mg/dL 06/04/18 Range/Units 12:06 Lymphocytes # (1.0-4.8) k/uL Carbon Dioxide 35 H (22-30) mmol/L BUN 27 H (7-17) mg/dL Creatinine 0.50 L (0.52-1.04) mg/dL Glucose 153 H (74-99) mg/dL POC Glucose (mg/dL) (75-99) mg/dL Microbiology - Last 24 Hours (Table) 05/29/18 19:42 Blood Culture - Preliminary Blood No Growth after 120 hours Assessment and Plan Assessment: Assessment: #1. Acute hypoxemic respiratory failure secondary to acute exacerbation of chronic obstructive pulmonary disease with purulent tracheobronchitis. #2. Recent upper respiratory infection #3. Mild COPD, baseline FEV1 of 1.5 L or 76% of predicted, not oxygen dependent at baseline #4. Left lower lobe calcified nodule #5. History of hypothyroidism #6. Chronic nicotine dependence, none for 35 years, 5-6 cigarettes per day #7. Anxiety #8. History of adrenal adenoma Plan: The patient was seen and evaluated by Dr. Chiu. She is cleared for discharge from the pulmonary standpoint. She does require home oxygen. She'll require a nebulizer with DuoNeb inhalations 4 times a day and when necessary, Symbicort. Complete a course of antibiotics. Complete a prednisone burst and taper starting at 40 mg daily for 4 days. Follow up with Dr. Price in our office in 1 week. She is again educated regarding the importance of complete smoking cessation. She is encouraged to call sooner with any recurrence of symptoms or other questions or concerns. I, the cosigning physician, performed a history & physical examination of the patient. Lungs sounds with bilateral end expiratory wheeze. Diminished. Maintaining good O2 saturations in the 90s on 2 L/m per nasal cannula. I discussed the assessment and plan of care with my nurse practitioner, hSeila Mckeon. I attest to the above note as dictated by her.
--- NOTE | 2018-06-04 17:05 | P.PN ---
Subjective Progress Note Date: 06/04/18 Progress note being dictated for Dr. Vigil Interval history: This is an 82-year-old female admitted with acute COPD exacerbation with acute bronchitis, severe protein malnutrition and multiple other medical issues. Complains of persistent worsening shortness of breath, not improving, reports is sick at home and is overwhelmed thinking of being discharged home. Currently maintaining O2 sats in the high 80s on 2 L nasal cannula, short of breath at rest. Afebrile. Urine and blood cultures revealed no growth. Objective - Vital Signs Vital signs: Vital Signs Temp 98.8 F 06/04/18 14:35 Pulse 82 06/04/18 14:35 Resp 16 06/04/18 14:35 BP 153/70 06/04/18 14:35 Pulse Ox 92 L 06/04/18 14:35 Intake & Output 06/03/18 06/04/18 06/04/18 18:59 06:59 18:59 Intake Total 600 900 Balance 600 900 Weight 40.46 kg 40.46 kg Intake: Oral 600 900 Other: # Voids 3 1 2 # Bowel Movements 2 1 - Exam PHYSICAL EXAM: VITAL SIGNS: As above GENERAL: Sitting up in bed, increased respiratory effort HEENT: Conjunctivae normal. eyes normal. Oral mucosa moist NECK: No JVD. No thyroid enlargement. No LNs CARDIOVASCULAR: S1, S2 muffled. No murmur RESPIRATION: Breath sounds diminished in the bases. Scattered rhonchi , crackles prolonged expiratory wheezing,. ABDOMEN: Soft, nontender . No guarding. no masses palpable. Bowel sounds heard. LEGS: No edema. no swelling PSYCHIATRY: Alert and oriented -3, mood and affect normal. NERVOUS SYSTEM: Cranial N 2-12 grossly normal. Moves all 4 limbs. Diffuse weakness No focal deficits. Skin: no rash - Labs CBC & Chem 7: 06/04/18 11:01 06/04/18 12:06 Labs: Abnormal Lab Results - Last 24 Hours (Table) 06/03/18 06/03/18 06/03/18 Range/Units 16:50 18:27 21:33 Lymphocytes # (1.0-4.8) k/uL Carbon Dioxide 33 H (22-30) mmol/L BUN (7-17) mg/dL Creatinine (0.52-1.04) mg/dL Glucose (74-99) mg/dL POC Glucose (mg/dL) 193 H 167 H (75-99) mg/dL 06/04/18 06/04/18 06/04/18 Range/Units 07:28 11:01 11:35 Lymphocytes # 0.7 L (1.0-4.8) k/uL Carbon Dioxide (22-30) mmol/L BUN (7-17) mg/dL Creatinine (0.52-1.04) mg/dL Glucose (74-99) mg/dL POC Glucose (mg/dL) 130 H 185 H (75-99) mg/dL 06/04/18 Range/Units 12:06 Lymphocytes # (1.0-4.8) k/uL Carbon Dioxide 35 H (22-30) mmol/L BUN 27 H (7-17) mg/dL Creatinine 0.50 L (0.52-1.04) mg/dL Glucose 153 H (74-99) mg/dL POC Glucose (mg/dL) (75-99) mg/dL Microbiology - Last 24 Hours (Table) 05/29/18 19:42 Blood Culture - Preliminary Blood No Growth after 120 hours Assessment and Plan Assessment: -Acute exacerbation of COPD with acute purulent tracheobronchitis, failure of outpatient treatment = Severe protein malnutrition with BMI 15.3 -COPD -Left lower lobe calcified nodule -Hypertension -Hypothyroidism -History of nicotine dependence -Gait dysfunction -Anxiety -History of adrenal adenoma Plan: Continue on current medication regime ,monitoring and symptomatic treatment. Maintain nebulized bronchodilators, IV steroids, antibiotics. Potassium replacement as per replacement protocol. Close monitoring of electrolyte with repeat labs ordered for a.m. Social work consulted regarding home situation. Discharge planning in progress for tomorrow. The impression and plan of care has been dictated as directed. : I performed a history and examination of this patient, discussed the same with the dictator. I agree with the dictator's note ,documented as a scribe. Any additional findings or plans will be noted.
[2018-06-04 17:51] LABS: Glucose,Whole Blood 186 mg/dL (75-99)
[2018-06-04 20:46] LABS: Glucose,Whole Blood 117 mg/dL (75-99)
[2018-06-04] MEDS: BISACODYL 10 MG SUPP RECTAL SCH (20:58)
[2018-06-04] MEDS: MONTELUKAST 10 MG TAB PO SCH (21:05)
[2018-06-05] MEDS ORDERED: methylPREDNISolone SOD SUCCI 125 MG/2 ML VIAL ONE
[2018-06-05] MEDS: methylPREDNISolone SOD SUCCI 125 MG/2 ML VIAL IV SCH ×3 (05:39→13:04)
[2018-06-05] MEDS: LEVOTHYROXINE 50 MCG TAB PO SCH (06:24)
[2018-06-05 06:51] LABS: Glucose,Whole Blood 157 mg/dL (75-99)
[2018-06-05] MEDS: FORMOTEROL FUMARATE 20 MCG/2 ML NEBU INHALATION SCH ×2 (08:05→11:47)
[2018-06-05] MEDS: BUDESONIDE 1 MG/2 ML NEBU INHALATION SCH ×2 (08:05→11:47)
[2018-06-05] MEDS: IPRATROPIUM-ALBUTEROL 3 ML NEB INHALATION PRN (08:06)
[2018-06-05] MEDS: DOXYCYCLINE 100 MG CAP PO SCH (08:19)
[2018-06-05] MEDS: PANTOPRAZOLE 40 MG TABLET PO SCH (08:19)
[2018-06-05] MEDS: VERAPAMIL 40 MG TAB PO SCH (08:19)
[2018-06-05] MEDS: HEPARIN SODIUM,PORCINE 5,000 UNIT/ML 1 ML VIAL SQ SCH (08:19)
[2018-06-05] MEDS: guaiFENesin 600 MG TABLET.ER PO SCH (08:19)
[2018-06-05] MEDS: INSULIN ASPART 100 UNIT/ML 1 ML 10 ML VIAL SQ SCH ×2 (08:19→13:16)
[2018-06-05] MEDS: MULTIVITAMINS, THERA 1 EACH TAB PO SCH (08:19)
[2018-06-05] MEDS: POLYETHYLENE GLYCOL 3350 17 GM POWD.PACK PO SCH (08:20)
[2018-06-05 09:47] VITALS: BP 151/79; PULSE 91; RESP 16; TEMP 98.9
[2018-06-05 12:15] LABS: Glucose,Whole Blood 177 mg/dL (75-99)
--- NOTE | 2018-06-05 12:51 | P.DS ---
Providers Date of admission: 05/29/18 21:46 Expected date of discharge: 06/05/18 Attending physician: Ebenezer Caldwell Consults: 05/29/18 21:37 Consult Physician Stat Consulting Provider: Valerie Price Reason/Comments: COPD exacerbation Do you want consulting provider notified?: Yes Primary care physician: Ebenezer Caldwell Hospital Course: 82-year-old female was admitted from the emergency room with exacerbation of COPD acute bronchitis. Patient had visited family physician and failed outpatient patient was treated by pulmonology and has improved. Patient requesting be discharged home Assessment Chronic COPD with acute exacerbation acute purulent tracheobronchitis Acute hypoxic respiratory failure secondary to above Severe protein malnutrition with BMI of 15.3 Hypokalemia History of hypertension Hypothyroidism Plan Discharge home We will send steroid taper to pharmacy Continue antibiotics and bronchodilators Patient is to follow-up with pulmonology and family physician Patient Condition at Discharge: Stable Plan - Discharge Summary New Discharge Prescriptions: New Acetaminophen Tab [Tylenol] 500 mg PO Q6HR PRN tab PRN Reason: Fever And/ Or Pain Budesonide [Pulmicort] 1 mg INHALATION RT-BID #60 nebu Doxycycline [Vibramycin] 100 mg PO BID 7 Days #14 cap Ipratropium-Albuterol Nebulize [Duoneb 0.5 mg-3 mg/3 ml Soln] 3 ml INHALATION RT-Q4H PRN #120 ampul.neb PRN Reason: Shortness Of Breath Or Wheezing Montelukast [Singulair] 10 mg PO HS #30 tab Multivitamins, Thera [Multivitamin (formulary)] 1 each PO DAILY@1200 tab Continue Verapamil HCl 120 mg PO BID Levothyroxine Sodium [Synthroid] 50 mcg PO DAILY Ensure 1 can PO BID-W/MEALS Discharge Medication List Levothyroxine Sodium [Synthroid] 50 mcg PO DAILY 05/17/18 [History] Verapamil HCl 120 mg PO BID 05/17/18 [History] Ensure 1 can PO BID-W/MEALS 05/29/18 [History] Acetaminophen Tab [Tylenol] 500 mg PO Q6HR PRN tab 06/05/18 [Rx] Budesonide [Pulmicort] 1 mg INHALATION RT-BID #60 nebu 06/05/18 [Rx] Doxycycline [Vibramycin] 100 mg PO BID 7 Days #14 cap 06/05/18 [Rx] Ipratropium-Albuterol Nebulize [Duoneb 0.5 mg-3 mg/3 ml Soln] 3 ml INHALATION RT -Q4H PRN #120 ampul.neb 06/05/18 [Rx] Montelukast [Singulair] 10 mg PO HS #30 tab 06/05/18 [Rx] Multivitamins, Thera [Multivitamin (formulary)] 1 each PO DAILY@1200 tab [Rx] Follow up Appointment(s)/Referral(s): Ebenezer Caldwell MD [Primary Care Provider] - 1-2 days [facility], [NON-STAFF] -
--- NOTE | 2018-06-05 14:54 | P.PN ---
Subjective Progress Note Date: 06/05/18 Principal diagnosis: Acute hypoxic respiratory failure secondary to COPD exacerbation and purulent tracheobronchitis This is a 82-year-old white female patient of Dr. Caldwell with past medical history of mild COPD, baseline FEV1 of 1.5 L or 76% of predicted, nicotine dependence, off-and-on for 35 years, hypothyroidism, anxiety, hyperlipidemia. Patient presented to the emergency department on 05/29/2018 for evaluation of difficulty breathing, cough, chest congestion, phlegm production. She denies any fever, but did have some subjective chills, she had been sick for last 2 weeks. She was seen by her primary care provider, and a I am dose of antibiotics and steroids, eating treatment and directed to the emergency department for further management. Chest x-ray did not show any active cardiopulmonary disease. There was a 1 cm calcified granuloma in the left lower lobe, was previously noted on the CT of the chest tube are 2017. No leukocytosis, electrolytes and renal profile are within normal limits, troponin was negative 1, LFTs were unremarkable. Patient was hypoxemic on presentation , with a pulse ox of 88% on room air. He was started on IV steroids, nebulized bronchodilators, Pulmicort and Perforomist, and empiric antibiotics in the form of doxycycline. The patient is seen today 05/31/2018 in follow-up on the regular medical floor. She is awake and alert in no acute distress. She is breathing a bit easier today as compared to yesterday. She is maintaining O2 saturations in the low 90s on 2 L/m per nasal cannula. She did set desaturate into the low 80s with exercise. She is maintained on DuoNeb inhalations, Pulmicort and Perforomist inhalations, IV Solu-Medrol. Antibiotics in the form of Vibramycin. Patient was reevaluated today on 06/01/2018, continues to cough and wheeze and continues to have intermittent episodes of shortness of breath. Patient is maximized on bronchodilators, improving, but not improving to the point of discharge planning at this point. CBC today showed leukocytosis with WBC count of 19.7, hemoglobin is 12.7, basic metabolic profile is normal. Chest x-ray on admission failed to show any evidence of pneumonia. Patient is being treated for tracheobronchitis mostly Patient was reevaluated today on 06/02/2018, not much of a change, continues to cough and wheeze continues to have shortness of breath. No fever no chills no hemoptysis. Chest x-ray on admission showed no evidence of active disease. However the patient is not improving much in spite of multiple bronchodilators, antibiotics, and steroids. I have a feeling that the patient may eventually require to be bronchoscoped. But I will go ahead and recommended repeat chest x -ray to be done in a.m. On 06/03/2018 patient seen in follow-up on medical surgical floor. Patient is complaining of generalized weakness, and exertional dyspnea. Repeat chest x- ray showed changes consistent with emphysema, calcified granuloma at the left lower lobe, no acute pulmonary process. Currently on 2 L per nasal cannula patient is satting 90%, afebrile, hemodynamically stable. Lung sounds are positive for coarse rhonchi. Blood and urine cultures remain negative. Today' s lab work has been reviewed, CBC was within normal limits, sodium is 140, potassium is 3.0, CO2 is 32, BUN was 19, creatinine is 0.48. Patient is on oral doxycycline, nebulized bronchodilators and IV steroids, making slow improvement, still quite dyspneic with any exertion. On 06/05/2018 patient seen in follow-up on medical surgical floor. Improving, still some exertional dyspnea, generalized weakness. On 2 L per nasal cannula, pulse ox of 95%, no fever no chills, lung sounds are positive a few scattered rhonchi, no significant wheezing. Yesterday we cleared the patient for discharge home on nebulized bronchodilators, oral course of antibiotics, and prednisone taper in addition to Symbicort Objective - Vital Signs Vital signs: Vital Signs Temp 98.9 F 06/05/18 07:33 Pulse 94 06/05/18 08:19 Resp 16 06/05/18 07:33 BP 151/79 06/05/18 07:33 Pulse Ox 94 L 06/05/18 07:33 Intake & Output 06/04/18 06/05/18 06/05/18 18:59 06:59 18:59 Other: # Voids 2 1 3 # Bowel Movements 1 1 - Exam Physical Exam: Revealed a 82-year-old female, pleasant, in no distress. Head: Atraumatic, normocephalic. Lymphatics: No lymphadenopathy. HEENT:[Neck is supple.] [No neck masses.] [No thyromegaly.] [No JVD.] PERRLA, EOMI, no icterus. Chest: Diffuse rhonchi, improving, less congested on today's exam Cardiac Exam: [Normal S1 and S2, no S3 gallop, no murmur.] Abdomen: [Soft, nontender, no megaly, no rebound, no guarding, normal bowel sounds.] Extremities: [No clubbing, no edema, no cyanosis.] Neurological Exam: [No focal neurologic deficit. Psychiatric: Normal mood, affect and mental status examination. Skin: No rashes ] - Labs CBC & Chem 7: 06/04/18 11:01 06/04/18 12:06 Labs: Abnormal Lab Results - Last 24 Hours (Table) 06/04/18 06/04/18 06/05/18 Range/Units 17:50 20:33 06:49 POC Glucose (mg/dL) 186 H 117 H 157 H (75-99) mg/dL 06/05/18 Range/Units 12:13 POC Glucose (mg/dL) 177 H (75-99) mg/dL Microbiology - Last 24 Hours (Table) 05/29/18 19:42 Blood Culture - Final Blood No Growth after 144 hours Assessment and Plan Plan: Assessment: #1. Acute hypoxemic respiratory failure secondary to acute exacerbation of chronic obstructive pulmonary disease with purulent tracheobronchitis. #2. Recent upper respiratory infection #3. Mild COPD, baseline FEV1 of 1.5 L or 76% of predicted, not oxygen dependent at baseline #4. Left lower lobe calcified nodule #5. History of hypothyroidism #6. Chronic nicotine dependence, none for 35 years, 5-6 cigarettes per day #7. Anxiety #8. History of adrenal adenoma Plan: Remains stable, improving, patient is cleared to go home from pulmonary perspective, and nebulized bronchodilators, Symbicort, prednisone taper, and oral course of oral antibiotics. Follow-up with Dr. Gonsales in the office in one week I performed a history & physical examination of the patient and discussed their management with my nurse practitioner, Destinee Rico. I reviewed the nurse practitioner's note and agree with the documented findings and plan of care. Lung sounds are positive for diffuse wheezes and rhonchi. The findings and the impression was discussed with the patient. I attest to the documentation by the nurse practitioner. Time with Patient: Less than 30
[2018-06-06] MEDS ORDERED: predniSONE 10 MG TAB PO SCH (09:00)
== END 2018-06-05 14:58 | disposition home health service (06) | DRG 190 ==
LOC: EC 18:34 → 4MS4W 21:46
PROVIDERS: ADMIT Family Medicine; ATTEND Family Medicine
DX: J44.0 Chronic obstructive pulmonary disease with (acute) lower respiratory infection (principal); E43 Unspecified severe protein-calorie malnutrition; J96.01 Acute respiratory failure with hypoxia; Z68.1 Body mass index [BMI] 19.9 or less, adult; J44.1 Chronic obstructive pulmonary disease with (acute) exacerbation; J20.9 Acute bronchitis, unspecified; E03.9 Hypothyroidism, unspecified; E78.5 Hyperlipidemia, unspecified; E87.6 Hypokalemia; F17.210 Nicotine dependence, cigarettes, uncomplicated; F41.9 Anxiety disorder, unspecified; I10 Essential (primary) hypertension; Z79.890 Hormone replacement therapy; Z90.710 Acquired absence of both cervix and uterus; Z79.899 Other long term (current) drug therapy; Z80.9 Family history of malignant neoplasm, unspecified; Z83.6 Family history of other diseases of the respiratory system; R91.1 Solitary pulmonary nodule; Z88.3 Allergy status to other anti-infective agents; Z88.5 Allergy status to narcotic agent; Z88.2 Allergy status to sulfonamides
CPT/HCPCS: 36415; 71045; 71046; 80048; 80051; 80053; 82550; 82553; 82803; 83735; 84443; 84484; 85025; 85610; 85652; 85730; 86140; 87040; 87086; 87502; 93005; 94640; 94760; 96360; 96361; 99285

== ENCOUNTER → 2018-09-06 | Outpatient (CLI) | payer MEDICARE, BC | END | disposition home or self-care (01) | LOC: LABWHC1 11:29 | PROVIDERS: ATTEND Internal Medicine Endocrinology, Diabetes & Metabolism | DX: E03.8 Other specified hypothyroidism (principal); E55.9 Vitamin D deficiency, unspecified | CPT/HCPCS: 36415; 82306; 84443 ==

== ENCOUNTER 2018-12-11 20:19 | Inpatient (IN) | payer MEDICARE, BC ==
[2018-12-11] MEDS ORDERED: SODIUM CHLORIDE 0.9% 500 ML 500 ML IV STA (20:54)
[2018-12-11 21:05] LABS: Basophils # (A) 0.1 k/uL (0-0.2); Basophils % (A) 1 %; Eosinophils # (A) 0.2 k/uL (0-0.7); Eosinophils % (A) 2 %; HCT 41.7 % (34.0-46.0); HGB 13.7 gm/dL (11.4-16.0); Lymphocytes # (A) 1.7 k/uL (1.0-4.8); Lymphocytes % (A) 18 %; MCH 30.3 pg (25.0-35.0); MCHC 32.9 g/dL (31.0-37.0); MCV 91.9 fL (80.0-100.0); Mean Platelet Volume 7.3; Monocytes # (A) 0.4 k/uL (0-1.0); Monocytes % (A) 5 %; Neutrophils # (A) 6.7 k/uL (1.3-7.7); Neutrophils % (A) 73 %; Platelet Count 222 k/uL (150-450); RBC 4.53 m/uL (3.80-5.40); RDW 14.6 % (11.5-15.5); WBC 9.2 k/uL (3.8-10.6)
[2018-12-11 21:13] LABS: ALT 22 U/L (9-52); AST 32 U/L (14-36); African American GFR (CKD) >90 (>60 ml/min/1.73 sqM); Albumin 4.3 g/dL (3.5-5.0); Alkaline Phosphatase 70 U/L (38-126); Anion Gap 8 mmol/L; Blood Urea Nitrogen 13 mg/dL (7-17); Calcium 9.8 mg/dL (8.4-10.2); Carbon Dioxide 26 mmol/L (22-30); Chloride 104 mmol/L (98-107); Glucose 116 mg/dL (74-99); Magnesium 1.8 mg/dL (1.6-2.3); Potassium 3.7 mmol/L (3.5-5.1); Sodium 138 mmol/L (137-145); Total Bilirubin 0.6 mg/dL (0.2-1.3); Total Protein 6.6 g/dL (6.3-8.2)
[2018-12-11 21:16] LABS: INR 0.9 (<1.2); Partial Thromboplastin Time 23.7 sec (22.0-30.0); Prothrombin Time 10.2 sec (9.0-12.0)
[2018-12-11 21:19] LABS: Appearance,Urine Clear (Clear); Bilirubin,Urine Negative (Negative); Blood,Urine Negative (Negative); Color,Urine Light Yellow; Glucose,Urine (UA) Negative (Negative); Ketones,Urine Negative (Negative); Leukocyte Esterase,Urine Negative (Negative); Nitrite,Urine Negative (Negative); PH, Urine 6.5 (5.0-8.0); Protein,Urine Negative (Negative); Specific Gravity,Urine 1.005 (1.001-1.035); Urobilinogen,Urine <2.0 mg/dL (<2.0)
--- NOTE | 2018-12-11 21:21 | ED ---
General Adult HPI - General Chief complaint: Arrhythmia/Palpitations Stated complaint: Heart Palpitations Time Seen by Provider: 12/11/18 20:37 Source: patient, RN notes reviewed Mode of arrival: wheelchair - History of Present Illness Initial comments: Shonna is an 83-year-old female with a past medical history of atrial fibrillation, COPD, hypertension, thyroid disorder, Brugada syndrome who presents to the emergency department for a chief complaint of palpitations. Patient states she has been feeling like her heart is "ticking" on and off today. States she has felt like this before but it is rare. Denies any chest pain or shortness of breath. Does admit to a history of atrial fibrillation. States she takes verapamil for this. Patient denies any anticoagulation therapy stating her doctor wanted to start her on Coumadin and she did not want to also has not been anticoagulated. Patient also states that she was incontinent once today which is not normal for her.Patient has no other complaints at this time including shortness of breath, chest pain, abdominal pain, nausea or vomiting, headache, or visual changes. - Related Data Home Medications Medication Instructions Recorded Confirmed Verapamil HCl 60 mg PO BID 05/17/18 12/11/18 Ensure 1 can PO BID-W/MEALS 05/29/18 12/11/18 Albuterol Sulfate [Proair Hfa] 2 puff INHALATION RT-Q6H PRN 12/11/18 12/11/18 Benzedrx Inhaler 1 puff EA NOSTRIL Q6H PRN 12/11/18 12/11/18 Biotin 300 mcg PO DAILY 12/11/18 12/11/18 Cholecalciferol [Vitamin D3 (25 2,000 unit PO DAILY 12/11/18 12/11/18 Mcg = 1000 Iu)] Levothyroxine Sodium [Synthroid] 75 mcg PO DAILY 12/11/18 12/11/18 Montelukast [Singulair] 10 mg PO HS PRN 12/11/18 12/11/18 Multivitamins, Thera [Multivitamin 1 tab PO DAILY@1200 12/11/18 12/11/18 (formulary)] Previous Rx's Medication Instructions Recorded Acetaminophen Tab [Tylenol] 500 mg PO Q6HR PRN tab 06/05/18 Allergies Allergy/AdvReac Type Severity Reaction Status Date / Time azithromycin Allergy Unknown Verified 12/11/18 21:42 codeine Allergy Unknown Verified 12/11/18 21:42 mussels Allergy Unknown Verified 12/11/18 21:42 Sulfa (Sulfonamide Allergy Unknown Verified 12/11/18 21:42 Antibiotics) Review of Systems ROS Statement: Those systems with pertinent positive or pertinent negative responses have been documented in the HPI. ROS Other: All systems not noted in ROS Statement are negative. Past Medical History Past Medical History: COPD, Hypertension, Thyroid Disorder History of Any Multi-Drug Resistant Organisms: None Reported Past Surgical History: No Surgical Hx Reported, Hysterectomy Additional Past Surgical History / Comment(s): vein stripping BLE, R knee, oophrectomy, R shoulder Past Anesthesia/Blood Transfusion Reactions: No Reported Reaction Past Psychological History: No Psychological Hx Reported Smoking Status: Former smoker Past Alcohol Use History: None Reported Past Drug Use History: None Reported - Past Family History Mother Family Medical History: Cancer, Pneumonia Additional Family Medical History / Comment(s): TB General Exam General appearance: alert, in no apparent distress Head exam: Present: atraumatic, normocephalic, normal inspection Eye exam: Present: normal appearance, PERRL, EOMI. Absent: scleral icterus, conjunctival injection, periorbital swelling ENT exam: Present: normal exam, normal oropharynx, mucous membranes moist, TM's normal bilaterally, normal external ear exam Neck exam: Present: normal inspection, full ROM. Absent: tenderness, meningismus, lymphadenopathy Respiratory exam: Present: normal lung sounds bilaterally. Absent: respiratory distress, wheezes, rales, rhonchi, stridor Cardiovascular Exam: Present: tachycardia, irregular rhythm, normal heart sounds. Absent: systolic murmur, diastolic murmur, rubs, gallop, clicks GI/Abdominal exam: Present: soft, normal bowel sounds. Absent: distended, tenderness, guarding, rebound, rigid Neurological exam: Present: alert, oriented X3, CN II-XII intact Psychiatric exam: Present: normal affect, normal mood Course Vital Signs 12/11/18 12/11/18 12/11/18 20:29 20:46 21:15 Temperature 98.0 F Pulse Rate 57 L Pulse Rate [ 96 [employer] ] Respiratory 16 12 Rate Blood Pressure 104/68 136/70 O2 Sat by Pulse 94 L Oximetry 12/11/18 12/11/18 21:30 22:05 Temperature Pulse Rate 83 74 Pulse Rate [ [employer] ] Respiratory 13 12 Rate Blood Pressure 123/89 134/77 O2 Sat by Pulse 97 Oximetry EKG Findings - EKG Comments: EKG Findings:: EKG obtained at 2055 shows atrial fibrillation with RVR, ventricular rate 135, QRS 78, QTC 480. EKG obtained at 2212 shows a normal sinus rhythm with a ventricular rate of 77, QRS duration 90, QTC 440, no evidence of ST elevation or depression Medical Decision Making - Medical Decision Making Shonna is an 83-year-old female with a past medical history of atrial fibrillation, COPD, hypertension, thyroid disorder, Brugada syndrome who presents for a chief complaint of palpitations times one day. States it feels like it is beating quickly. Denies chest pain or shortness of breath. Does ad constance a history of atrial fibrillation which she is currently taking verapamil for, no anticoagulation onboard. On presentation patient is in atrial fibrillation with a heart rate in the 100s to 130s. Patient did self convert to sinus rhythm after about an hour into her stay and is currently in the 80s. Patient started on heparin as she is not anticoagulated at this time. CBC and CMP are unremarkable. However troponin is elevated at 0.102. Likely secondary to atrial fibrillation, denying any chest pain. Patient will be admitted for cardiology consult. Patient will be started on a 5 milligram Cardizem drip to prevent patient from converting back to atrial fibrillation. Dr. Robson garcia ssed this case with Dr. Jean who accepts the admission - Lab Data Result diagrams: 12/11/18 20:55 12/11/18 20:55 Lab Results 12/11/18 12/11/18 12/11/18 Range/Units 20:55 20:55 20:55 WBC 9.2 (3.8-10.6) k/uL RBC 4.53 (3.80-5.40) m/uL Hgb 13.7 (11.4-16.0) gm/dL Hct 41.7 (34.0-46.0) % MCV 91.9 (80.0-100.0) fL MCH 30.3 (25.0-35.0) pg MCHC 32.9 (31.0-37.0) g/dL RDW 14.6 (11.5-15.5) % Plt Count 222 (150-450) k/uL Neutrophils % 73 % Lymphocytes % 18 % Monocytes % 5 % Eosinophils % 2 % Basophils % 1 % Neutrophils # 6.7 (1.3-7.7) k/uL Lymphocytes # 1.7 (1.0-4.8) k/uL Monocytes # 0.4 (0-1.0) k/uL Eosinophils # 0.2 (0-0.7) k/uL Basophils # 0.1 (0-0.2) k/uL PT 10.2 (9.0-12.0) sec INR 0.9 (<1.2) APTT 23.7 (22.0-30.0) sec Sodium 138 (137-145) mmol/L Potassium 3.7 (3.5-5.1) mmol/L Chloride 104 (98-107) mmol/L Carbon Dioxide 26 (22-30) mmol/L Anion Gap 8 mmol/L BUN 13 (7-17) mg/dL Creatinine 0.54 (0.52-1.04) mg/dL Est GFR (CKD-EPI)AfAm >90 (>60 ml/min/1.73 sqM) Est GFR (CKD-EPI)NonAf 88 (>60 ml/min/1.73 sqM) Glucose 116 H (74-99) mg/dL Calcium 9.8 (8.4-10.2) mg/dL Magnesium 1.8 (1.6-2.3) mg/dL Total Bilirubin 0.6 (0.2-1.3) mg/dL AST 32 (14-36) U/L ALT 22 (9-52) U/L Alkaline Phosphatase 70 (38-126) U/L Troponin I (0.000-0.034) ng/mL Total Protein 6.6 (6.3-8.2) g/dL Albumin 4.3 (3.5-5.0) g/dL Urine Color Urine Appearance (Clear) Urine pH (5.0-8.0) Ur Specific [place] (1.001-1.035) Urine Protein (Negative) Urine Glucose (UA) (Negative) Urine Ketones (Negative) Urine Blood (Negative) Urine Nitrite (Negative) Urine Bilirubin (Negative) Urine Urobilinogen (<2.0) mg/dL Ur Leukocyte Esterase (Negative) 12/11/18 12/11/18 Range/Units 20:55 21:00 WBC (3.8-10.6) k/uL RBC (3.80-5.40) m/uL Hgb (11.4-16.0) gm/dL Hct (34.0-46.0) % MCV (80.0-100.0) fL MCH (25.0-35.0) pg MCHC (31.0-37.0) g/dL RDW (11.5-15.5) % Plt Count (150-450) k/uL Neutrophils % % Lymphocytes % % Monocytes % % Eosinophils % % Basophils % % Neutrophils # (1.3-7.7) k/uL Lymphocytes # (1.0-4.8) k/uL Monocytes # (0-1.0) k/uL Eosinophils # (0-0.7) k/uL Basophils # (0-0.2) k/uL PT (9.0-12.0) sec INR (<1.2) APTT (22.0-30.0) sec Sodium (137-145) mmol/L Potassium (3.5-5.1) mmol/L Chloride (98-107) mmol/L Carbon Dioxide (22-30) mmol/L Anion Gap mmol/L BUN (7-17) mg/dL Creatinine (0.52-1.04) mg/dL Est GFR (CKD-EPI)AfAm (>60 ml/min/1.73 sqM) Est GFR (CKD-EPI)NonAf (>60 ml/min/1.73 sqM) Glucose (74-99) mg/dL Calcium (8.4-10.2) mg/dL Magnesium (1.6-2.3) mg/dL Total Bilirubin (0.2-1.3) mg/dL AST (14-36) U/L ALT (9-52) U/L Alkaline Phosphatase (38-126) U/L Troponin I 0.102 H* (0.000-0.034) ng/mL Total Protein (6.3-8.2) g/dL Albumin (3.5-5.0) g/dL Urine Color Light Yellow Urine Appearance Clear (Clear) Urine pH 6.5 (5.0-8.0) Ur Specific [place] 1.005 (1.001-1.035) Urine Protein Negative (Negative) Urine Glucose (UA) Negative (Negative) Urine Ketones Negative (Negative) Urine Blood Negative (Negative) Urine Nitrite Negative (Negative) Urine Bilirubin Negative (Negative) Urine Urobilinogen <2.0 (<2.0) mg/dL Ur Leukocyte Esterase Negative (Negative) - EKG Data -: EKG Interpreted by Me (and Dr Chance) When compared to previous EKG there are: changes noted (EKG from 05/31/2018 shows a sinus tachycardia with a ventricular rate of 104. EKG from May 17 shows a sinus rhythm of 70) Disposition Clinical Impression: Atrial fibrillation, Elevated troponin Disposition: ADMITTED IP TO THIS HOSP Condition: Fair Is patient prescribed a controlled substance at d/c from ED?: No Referrals: Ebenezer Caldwell MD [Primary Care Provider] - 1-2 days Time of Disposition: 22:05
--- NOTE | 2018-12-11 21:31 | XR ---
EXAMINATION TYPE: XR chest 2V DATE OF EXAM: 12/11/2018 COMPARISON: 06/03/2018 HISTORY: Palpitations TECHNIQUE: Frontal and lateral views of the chest are obtained. FINDINGS: Heart size is normal. Lungs are clear of consolidation. There is calcified granuloma left lower lobe. There are chest leads. Thoracic aorta is atheromatous. There is flattening of the diaphra gm. IMPRESSION: COPD. No acute lung disease. No change compared to old exam.
[2018-12-11] MEDS ORDERED: HEPARIN SODIUM,PORCINE 5,000 UNIT/ML 1 ML VIAL IV PRN (21:41)
[2018-12-11] MEDS ORDERED: HEPARIN SODIUM,PORCINE 5,000 UNIT/ML 1 ML VIAL IV ONE (21:41)
[2018-12-11] MEDS ORDERED: HEPARIN SOD,PORK IN 0.45% NACL 25,000 UNIT in 0.45% NACL 1 250ML.BAG IV SCH (21:45)
[2018-12-11] MEDS ORDERED: DILTIAZEM 125 MG in SODIUM CHLORIDE 0.9% 100 ML IV SCH (22:00)
[2018-12-11] MEDS ORDERED: ASPIRIN 81 MG PO STA (22:07)
[2018-12-11] MEDS ORDERED: NITROGLYCERIN SL TABS 0.4 MG TAB SUBLINGUAL PRN (22:07)
[2018-12-12 03:54] LABS: Basophils # (A) 0.1 k/uL (0-0.2); Basophils % (A) 1 %; Eosinophils # (A) 0.2 k/uL (0-0.7); Eosinophils % (A) 2 %; HCT 35.9 % (34.0-46.0); HGB 11.2 gm/dL (11.4-16.0); Lymphocytes # (A) 2.4 k/uL (1.0-4.8); Lymphocytes % (A) 35 %; MCH 29.1 pg (25.0-35.0); MCHC 31.1 g/dL (31.0-37.0); MCV 93.5 fL (80.0-100.0); Mean Platelet Volume 7.1; Monocytes # (A) 0.3 k/uL (0-1.0); Monocytes % (A) 5 %; Neutrophils # (A) 3.7 k/uL (1.3-7.7); Neutrophils % (A) 54 %; Platelet Count 205 k/uL (150-450); RBC 3.84 m/uL (3.80-5.40); RDW 13.5 % (11.5-15.5); WBC 6.8 k/uL (3.8-10.6)
[2018-12-12 04:03] LABS: Cholesterol 150 mg/dL (<200); HDL Cholesterol 59 mg/dL (40-60); LDL Cholesterol,Calculated 77 mg/dL (0-99); Triglycerides 68 mg/dL (<150)
[2018-12-12 05:14] LABS: Glucose,Whole Blood 111 mg/dL (75-99)
[2018-12-12] MEDS ORDERED: ASPIRIN 325 MG TAB PO SCH (09:00)
[2018-12-12 10:01] VITALS: BMI 14.1
[2018-12-12] MEDS: METOPROLOL TARTRATE 25 MG TAB PO SCH ×2 (13:46→22:37)
--- NOTE | 2018-12-12 14:42 | P.HPIM ---
History of Present Illness Chief Complaint: Palpitations This very pleasant 8-year-old female past medical history significant for atrial fibrillation, hypertension, Brugada syndrome, thyroid disorder, COPD presents to the ER with chief complaints of palpitation. Patient says that she felt her heart taking on and off yesterday and it was going on for some time. She said that she denied any chest pains, she denied any shortness of breath or cough, she did not complain of any tingling numbness on his extremities, no itch no rash. She denied any headache or visual changes. She also did not complain of any abdominal pain, nausea and vomiting, or diarrhea constipation. She does came into the ER for further urology management. She said that she has a history of A. fib but is not on any blood thinners except for aspirin. ER course. Patient had lab work done in the ER which showed WBC 6.8 hemoglobin 11.2 platelets 205 troponin was 0.507 0.424 UA was negative. Chest x-ray shows no acute changes. Initial EKG showed A. fib. Patient was started on heparin Cardizem drip and admitted to the hospitalist service a further evaluation and management with cardiology consult Review of Systems All systems: negative Past Medical History Past Medical History: Cancer, COPD, Hypertension, Thyroid Disorder Additional Past Medical History / Comment(s): Burgada syndrome, bladder CA History of Any Multi-Drug Resistant Organisms: None Reported Past Surgical History: No Surgical Hx Reported, Hysterectomy Additional Past Surgical History / Comment(s): vein stripping BLE, R knee, oophrectomy, R shoulder Past Anesthesia/Blood Transfusion Reactions: No Reported Reaction Past Psychological History: No Psychological Hx Reported Smoking Status: Former smoker Past Alcohol Use History: None Reported Past Drug Use History: None Reported - Past Family History Mother Family Medical History: Cancer, Pneumonia Additional Family Medical History / Comment(s): TB Medications and Allergies Home Medications Medication Instructions Recorded Confirmed Type Verapamil HCl 60 mg PO BID 05/17/18 12/11/18 History Ensure 1 can PO BID-W/MEALS 05/29/18 12/11/18 History Acetaminophen Tab [Tylenol] 500 mg PO Q6HR PRN tab 06/05/18 12/11/18 Rx Albuterol Sulfate [Proair Hfa] 2 puff INHALATION RT-Q6H PRN 12/11/18 12/11/18 History Benzedrx Inhaler 1 puff EA NOSTRIL Q6H PRN 12/11/18 12/11/18 History Biotin 300 mcg PO DAILY 12/11/18 12/11/18 History Cholecalciferol [Vitamin D3 (25 2,000 unit PO DAILY 12/11/18 12/11/18 History Mcg = 1000 Iu)] Levothyroxine Sodium [Synthroid] 75 mcg PO DAILY 12/11/18 12/11/18 History Montelukast [Singulair] 10 mg PO HS PRN 12/11/18 12/11/18 History Multivitamins, Thera [Multivitamin 1 tab PO DAILY@1200 12/11/18 12/11/18 History (formulary)] Allergies Allergy/AdvReac Type Severity Reaction Status Date / Time azithromycin Allergy Unknown Verified 12/11/18 21:42 codeine Allergy Unknown Verified 12/11/18 21:42 mussels Allergy Unknown Verified 12/11/18 21:42 Sulfa (Sulfonamide Allergy Unknown Verified 12/11/18 21:42 Antibiotics) Physical Exam Vitals: Vital Signs Temp Pulse Pulse Resp BP Pulse Ox 12/12/18 13:00 64 18 125/68 12/12/18 12:00 98.0 F 60 16 133/72 95 12/12/18 11:00 63 18 121/95 95 12/12/18 10:00 66 16 134/65 95 12/12/18 09:00 63 16 126/63 95 12/12/18 08:00 98.1 F 63 18 110/57 95 12/12/18 07:00 65 20 133/81 92 L 12/12/18 06:00 98.2 F 67 19 109/75 88 L 12/12/18 03:00 68 16 124/64 96 12/12/18 02:00 68 18 124/65 93 L 12/12/18 01:00 63 20 124/64 92 L 12/12/18 00:31 98.1 F 64 12 124/64 97 12/11/18 23:00 78 12 142/71 97 12/11/18 22:32 74 12 142/71 97 12/11/18 22:05 74 12 134/77 97 12/11/18 21:30 83 13 123/89 12/11/18 21:15 12 136/70 12/11/18 20:46 96 07/17/19 20:29 98.0 F 57 L 16 104/68 94 L Intake and Output 12/11/18 12/12/18 12/12/18 22:59 06:59 14:59 Intake Total 120 47.504 Balance 120 47.504 Intake: Intake, IV Titration 47.504 Amount Heparin Sod,Pork in 0.45% 47.504 NaCl 25,000 unit In 0.45 % NaCl 1 250ml.bag @ 12 UNITS/KG/HR 4.627 mls/hr IV .Q24H [facility] Rx#: [id number] Oral 120 Other: Weight 38.555 kg 38.555 kg On exam, alert and oriented x3. HEENT: Conjunctivae normal. eyes normal. NECK: No JVD. No thyroid enlargement. No LNs CARDIOVASCULAR: S1, S2 positive rate is regular at this time. RESPIRATION: Breath sounds diminished in the bases. No rhonchi or crackles. No bronchial breathing. ABDOMEN: Soft, nontender . No guarding. no masses palpable. No ascites, No hepatosplenomegaly.Bowel sounds heard. LEGS: No edema. no swelling NERVOUS SYSTEM: Cranial N 2-12 grossly normal. Moves all 4 limbs. No focal deficits. No sensory deficit. No signs of cerebellar dysfucntion. Skin: no ulcer no rash Joints: No active swelling. No inflammation. Lymphatic system. No LN neck axilla or groin. Results CBC & Chem 7: 12/12/18 03:22 12/11/18 20:55 Labs: Abnormal Lab Results - Last 24 Hours (Table) 12/11/18 12/11/18 12/12/18 Range/Units 20:55 20:55 03:22 Hgb (11.4-16.0) gm/dL APTT 35.5 H (22.0-30.0) sec Glucose 116 H (74-99) mg/dL POC Glucose (mg/dL) (75-99) mg/dL Troponin I 0.102 H* (0.000-0.034) ng/mL 12/12/18 12/12/18 12/12/18 Range/Units 03:22 03:22 05:00 Hgb 11.2 L (11.4-16.0) gm/dL APTT (22.0-30.0) sec Glucose (74-99) mg/dL POC Glucose (mg/dL) 111 H (75-99) mg/dL Troponin I 0.507 H* (0.000-0.034) ng/mL 12/12/18 12/12/18 Range/Units 06:16 09:13 Hgb (11.4-16.0) gm/dL APTT 32.5 H (22.0-30.0) sec Glucose (74-99) mg/dL POC Glucose (mg/dL) (75-99) mg/dL Troponin I 0.424 H* (0.000-0.034) ng/mL Thrombosis Risk Factor Assmnt - Choose All That Apply Any of the Below Risk Factors Present?: No Other Risk Factors: Yes Each Risk Factor Represents 3 Points: Age 75 years or older Other congenital or acquired thrombophilia - If yes, enter type in comment: No Thrombosis Risk Factor Assessment Total Risk Factor Score: 3 Thrombosis Risk Factor Assessment Level: Moderate Risk Assessment and Plan Assessment: - A. fib with RVR rate now controlled - Hypertension - Hyperlipidemia - COPD - Thyroid disorder Plan - We'll admit the patient to selective floor - Cardiology consulted. Her Cardizem drip has been stopped right now. She's been maintained on heparin drip. - She started on Lopressor - We'll resume rest of the patient's home medications - DVT and GI prophylaxis - We'll order for lab work in the morning - Expected length of stay: 2 midnights - Patient is full code
--- NOTE | 2018-12-12 16:14 | P.CRDCN ---
History of Present Illness History of present illness: This is Malka Bentley PA-C dictating a consult on this patient The patient was interviewed and examined by me as well as by Dr. Colby Case discussed with Dr. Colby and he agrees with the plan of care IMPRESSION / ASSESSMENT: Paroxysmal Atrial fibrillation, not on anticoagulation at home, currently on heparin Elevated troponins, peak 0.507, most likely demand ischemia due to A. fib with RVR, type II IN Hypertension Family history of Brugada syndrome COPD PLAN: Obtain records from [facility] Avoid sodium channel blockers such as flecainide, propafenone, lidocaine, and tricyclic antidepressants Start atorvastatin 40 mg Discontinue Cardizem and start metoprolol tartrate 25 mg twice a day CHADS VASC = 4 for age, HTN, and female gender, anticoagulation indicated, start eliquis 2.5 twice a day, as of age greater than 80 and body weight less than 60 kg Decrease aspirin to 81 mg daily due to bleeding risk combination of anticoagulation HPI Patient is an 83-year-old female with a past medical history of paroxysmal atrial fibrillation, COPD, hypertension who presented with shortness of breath and palpitations. She states she was outside working in her garden when she became very short of breath. Shortness of breath got progressively worse and then her heart "started pounding". She did get very mild chest pressure with this. She denies any dizziness or syncope. States she has been under a lot of stress recently. She has a possible family history of Brugada syndrome, her son unexpectedly at the age of 18. Upon admission her initial EKG revealed atrial fibrillation with RVR. Repeat EKG showed sinus rhythm. She was started on heparin and Cardizem. Today she feels weak. She was very dizzy when we sat her up in bed. Denies any shortness of breath or chest pain, back pain, shoulder pain, jaw pain, palpitations. Social history denies alcohol Current smoker, about 5 cigarettes a day ROS: No fevers, chills or rigors, no cough, phlegm or expectoration, no nausea, vomiting or diarrhea, no hematuria, dysuria, no musculoskeletal complaints, no strokes or seizures, EXAMINATION: Patient is afebrile, pulse 65, respirations 20, blood pressure 133/81, oxygen saturation 92% on room air Seen and examined resting in bed, does not appear in any acute distress lungs are clear to auscultation bilaterally Heart is regular, normal S1-S2, no murmurs rubs or gallops appreciated No elevated JVD noted No lower extremity edema REVIEW OF LABS, ECG & MEDICAL DATA initial EKG reveals A. fib with RVR, V1 and V2 and do not represent type I Brugada morphology repeat ECG shows sinus rhythm, subtle ST abnormalities in V2, no clearcut type I Brugada morphology seen WBC 6.8, hemoglobin 11.2, potassium 3.7, nightly 13, creatinine 0.54 Troponin 0.424, 0.507, 0.102 Total cholesterol 150, LDL 77, HDL 59, triglyceride 68 TSH within normal limits at 1.47 Past Medical History Past Medical History: Cancer, COPD, Hypertension, Thyroid Disorder Additional Past Medical History / Comment(s): Burgada syndrome, bladder CA History of Any Multi-Drug Resistant Organisms: None Reported Past Surgical History: No Surgical Hx Reported, Hysterectomy Additional Past Surgical History / Comment(s): vein stripping BLE, R knee, oophrectomy, R shoulder Past Anesthesia/Blood Transfusion Reactions: No Reported Reaction Past Psychological History: No Psychological Hx Reported Smoking Status: Former smoker Past Alcohol Use History: None Reported Past Drug Use History: None Reported - Past Family History Mother Family Medical History: Cancer, Pneumonia Additional Family Medical History / Comment(s): TB Medications and Allergies Home Medications Medication Instructions Recorded Confirmed Type Verapamil HCl 60 mg PO BID 05/17/18 12/11/18 History Ensure 1 can PO BID-W/MEALS 05/29/18 12/11/18 History Acetaminophen Tab [Tylenol] 500 mg PO Q6HR PRN tab 06/05/18 12/11/18 Rx Albuterol Sulfate [Proair Hfa] 2 puff INHALATION RT-Q6H PRN 12/11/18 12/11/18 History Benzedrx Inhaler 1 puff EA NOSTRIL Q6H PRN 12/11/18 12/11/18 History Biotin 300 mcg PO DAILY 12/11/18 12/11/18 History Cholecalciferol [Vitamin D3 (25 2,000 unit PO DAILY 12/11/18 12/11/18 History Mcg = 1000 Iu)] Levothyroxine Sodium [Synthroid] 75 mcg PO DAILY 07/17/19 07/17/19 History Montelukast [Singulair] 10 mg PO HS PRN 12/11/18 12/11/18 History Multivitamins, Thera [Multivitamin 1 tab PO DAILY@1200 12/11/18 12/11/18 History (formulary)] Allergies Allergy/AdvReac Type Severity Reaction Status Date / Time azithromycin Allergy Unknown Verified 12/11/18 21:42 codeine Allergy Unknown Verified 12/11/18 21:42 mussels Allergy Unknown Verified 12/11/18 21:42 Sulfa (Sulfonamide Allergy Unknown Verified 12/11/18 21:42 Antibiotics) Physical Exam Vitals: Vital Signs Temp Pulse Pulse Resp BP Pulse Ox 12/12/18 07:00 65 20 133/81 92 L 12/12/18 06:00 98.2 F 67 19 109/75 88 L 12/12/18 03:00 68 16 124/64 96 12/12/18 02:00 68 18 124/65 93 L 12/12/18 01:00 63 20 124/64 92 L 12/12/18 00:31 98.1 F 64 12 124/64 97 12/11/18 23:00 78 12 142/71 97 12/11/18 22:32 74 12 142/71 97 12/11/18 22:05 74 12 134/77 97 12/11/18 21:30 83 13 123/89 12/11/18 21:15 12 136/70 12/11/18 20:46 96 12/11/18 20:29 98.0 F 57 L 16 104/68 94 L Intake and Output 12/11/18 12/12/18 12/12/18 22:59 06:59 14:59 Intake Total 120 Balance 120 Intake: Oral 120 Other: Weight 38.555 kg Results 12/12/18 03:22 12/11/18 20:55 Cardiac Enzymes 12/11/18 12/11/18 12/12/18 Range/Units 20:55 20:55 03:22 AST 32 (14-36) U/L Troponin I 0.102 H* 0.507 H* (0.000-0.034) ng/mL Coagulation 12/11/18 12/12/18 12/12/18 Range/Units 20:55 03:22 06:16 PT 10.2 (9.0-12.0) sec APTT 23.7 35.5 H 32.5 H (22.0-30.0) sec Lipids 12/12/18 Range/Units 03:22 Triglycerides 68 (<150) mg/dL Cholesterol 150 (<200) mg/dL HDL Cholesterol 59 (40-60) mg/dL CBC 12/11/18 12/12/18 Range/Units 20:55 03:22 WBC 9.2 6.8 (3.8-10.6) k/uL RBC 4.53 3.84 (3.80-5.40) m/uL Hgb 13.7 11.2 L (11.4-16.0) gm/dL Hct 41.7 35.9 (34.0-46.0) % Plt Count 222 205 (150-450) k/uL Comprehensive Metabolic Panel 12/11/18 Range/Units 20:55 Sodium 138 (137-145) mmol/L Potassium 3.7 (3.5-5.1) mmol/L Chloride 104 (98-107) mmol/L Carbon Dioxide 26 (22-30) mmol/L BUN 13 (7-17) mg/dL Creatinine 0.54 (0.52-1.04) mg/dL Glucose 116 H (74-99) mg/dL Calcium 9.8 (8.4-10.2) mg/dL AST 32 (14-36) U/L ALT 22 (9-52) U/L Alkaline Phosphatase 70 (38-126) U/L Total Protein 6.6 (6.3-8.2) g/dL Albumin 4.3 (3.5-5.0) g/dL Current Medications Generic Name Dose Route Start Last Admin Trade Name Freq PRN Reason Stop Dose Admin Aspirin 325 mg 12/12/18 09:00 Aspirin PO DAILY MISSY Heparin Sodium (Porcine) 0 unit 12/11/18 21:41 Heparin IV PER PROTOCOL PRN Low PTT Protocol Heparin Sodium/Sodium Chloride 250 mls @ 4.627 mls/hr 12/11/18 21:45 12/11/18 22:15 25,000 unit/ Sodium Chloride IV 12 units/kg/hr .Q24H MISSY 4.627 mls/hr Administration Protocol 12 UNITS/KG/HR Diltiazem HCl 125 mg/ Sodium 125 mls @ 5 mls/hr 12/11/18 22:00 12/11/18 22:22 Chloride IV 5 mg/hr .Q24H MISSY 5 mls/hr Administration 5 MG/HR Nitroglycerin 0.4 mg 12/11/18 22:07 Nitrostat SUBLINGUAL Q5M PRN Chest Pain Intake and Output 12/11/18 12/12/18 12/12/18 22:59 06:59 14:59 Intake Total 120 Balance 120 Intake: Oral 120 Other: Weight 38.555 kg 12/12/18 03:22 12/11/18 20:55
[2018-12-12] MEDS ORDERED: ATORVASTATIN 40 MG TAB PO SCH (21:00)
[2018-12-12] MEDS: APIXABAN 2.5 MG TABLET PO SCH (22:37)
[2018-12-13 05:43] LABS: Basophils # (A) 0.1 k/uL (0-0.2); Basophils % (A) 1 %; Eosinophils # (A) 0.2 k/uL (0-0.7); Eosinophils % (A) 4 %; HCT 35.4 % (34.0-46.0); HGB 11.7 gm/dL (11.4-16.0); Lymphocytes % (A) 36 %; MCH 30.4 pg (25.0-35.0); MCHC 33.2 g/dL (31.0-37.0); MCV 91.8 fL (80.0-100.0); Mean Platelet Volume 7.7; Monocytes # (A) 0.3 k/uL (0-1.0); Monocytes % (A) 5 %; Neutrophils # (A) 2.9 k/uL (1.3-7.7); Neutrophils % (A) 52 %; Platelet Count 198 k/uL (150-450); RBC 3.85 m/uL (3.80-5.40); RDW 14.3 % (11.5-15.5); WBC 5.5 k/uL (3.8-10.6)
[2018-12-13] MEDS: APIXABAN 2.5 MG TABLET PO SCH (08:26)
[2018-12-13] MEDS: METOPROLOL TARTRATE 25 MG TAB PO SCH (08:26)
[2018-12-13] MEDS ORDERED: ASPIRIN 81 MG PO SCH (09:00)
[2018-12-13 09:13] VITALS: PULSE 61; TEMP 97.5
[2018-12-13 13:02] VITALS: BP 141/89; RESP 16
--- NOTE | 2018-12-13 14:26 | P.PN ---
Progress Note - Text This is Malka Bentley PA-C dictating a progress note on this patient The patient was interviewed and examined by me as well as by Dr. Colby Case discussed with Dr. 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 fib management due to possible family history of Brugada syndrome HPI/interval history Patient is an 83-year-old female with a past medical history of paroxysmal atrial fibrillation, COPD, and hypertension who presented with complaints of shortness of breath and palpitations. She was found to be in atrial fibrillation with RVR and self converted to sinus rhythm in the emergency department. She was started on metoprolol and anticoagulation with eliquis. Patient seen and examined sitting comfortably in bed. States her breathing has improved. Denies any further episodes of shortness of breath and palpitations. No chest pain. She was slightly dizzy for about 10 seconds when she got up and then it resolved. She was able to walk to the bathroom without any dizziness, lightheadedness. No syncope. EXAMINATION Patient is afebrile, pulse 61, respirations 16, blood pressure 141/89, oxygen saturation 98% on room air Patient seen and examined sitting comfortably in bed, in no acute distress Lungs clear to auscultation bilaterally Heart is regular rate and rhythm, normal S1-S2, no murmurs appreciated No lower extremity edema noted REVIEW OF LABS, ECG WBC 5.5, hemoglobin 11.1, potassium 3.7, BUN 13, creatinine 0.54 Troponins 0.424, 0.507, 0.102 Bedside telemetry reveals sinus rhythm Records obtained from the office: Last stress test showed no evidence for stress-induced ischemia Last echo showed normal LV size and function, EF 60%, no significant valvular abnormalities Last JULY normal
--- NOTE | 2018-12-13 16:05 | P.DS ---
Providers Date of admission: 12/11/18 21:50 Expected date of discharge: 12/13/18 Attending physician: Fabian Jean Consults: 12/11/18 22:07 Consult Physician Urgent Consulting Provider: [facility] Consult Reason/Comments: elevated troponin, Afib Do you want consulting provider notified?: Yes Primary care physician: Ebenezer Caldwell Hospital Course: Discharge diagnosis - A. fib with RVR rate now controlled - Hypertension - Hyperlipidemia - COPD - Thyroid disorder Hospital course This very pleasant 8-year-old female past medical history significant for atrial fibrillation, hypertension, Brugada syndrome, thyroid disorder, COPD presents to the ER with chief complaints of palpitation. Patient says that she felt her heart taking on and off yesterday and it was going on for some time. She said that she denied any chest pains, she denied any shortness of breath or cough, she did not complain of any tingling numbness on his extremities, no itch no rash. She denied any headache or visual changes. She also did not complain of any abdominal pain, nausea and vomiting, or diarrhea constipation. She does came into the ER for further urology management. She said that she has a history of A. fib but is not on any blood thinners except for aspirin. ER course. Patient had lab work done in the ER which showed WBC 6.8 hemoglobin 11.2 platelets 205 troponin was 0.507 0.424 UA was negative. Chest x-ray shows no acute changes. Initial EKG showed A. fib. Patient was started on heparin Cardizem drip and admitted to the hospitalist service a further evaluation and management with cardiology consult Patient's heparin Cardizem for DC'd. She was started on eliquis and Lopressor 25 mg twice a day On 12/13/2018 Patient heart rate is stable She is complaining of no chest pain, racing heart, no cough no shortness of breath, She does not complain of any abdominal pain, nausea and vomiting, or diarrhea constipation On exam, alert and oriented x3. HEENT: Conjunctivae normal. eyes normal. NECK: No JVD. No thyroid enlargement. No LNs CARDIOVASCULAR: S1, S2 positive RESPIRATION: Breath sounds diminished in the bases. No rhonchi or crackles. No bronchial breathing. ABDOMEN: Soft, nontender . No guarding. no masses palpable. No ascites, No hepatosplenomegaly.Bowel sounds heard. LEGS: No edema. no swelling NERVOUS SYSTEM: Cranial N 2-12 grossly normal. Moves all 4 limbs. No focal deficits. No sensory deficit. No signs of cerebellar dysfucntion. Skin: no ulcer no rash Patient will be discharged home eliquis and metoprolol, aspirin. Verapamil was discontinued Patient is to follow with cardiology in a week Patient is to follow with primary care doctor in 1-2 days Patient is to take medications with compliance Patient Condition at Discharge: Fair Plan - Discharge Summary New Discharge Prescriptions: New Aspirin [Adult Low Dose Aspirin EC] 81 mg PO DAILY #30 tablet. Apixaban [Eliquis] 2.5 mg PO BID #60 tablet Atorvastatin [Lipitor] 40 mg PO HS #30 tab Metoprolol Tartrate [Lopressor] 25 mg PO BID #120 tab Continue Ensure 1 can PO BID-W/MEALS Acetaminophen Tab [Tylenol] 500 mg PO Q6HR PRN tab PRN Reason: Fever And/ Or Pain Cholecalciferol [Vitamin D3 (25 Mcg = 1000 Iu)] 2,000 unit PO DAILY Benzedrx Inhaler 1 puff EA NOSTRIL Q6H PRN PRN Reason: Nasal Congestion Levothyroxine Sodium [Synthroid] 75 mcg PO DAILY Albuterol Sulfate [Proair Hfa] 2 puff INHALATION RT-Q6H PRN PRN Reason: Shortness Of Breath Multivitamins, Thera [Multivitamin (formulary)] 1 tab PO DAILY@1200 Montelukast [Singulair] 10 mg PO HS PRN PRN Reason: Allergy Symptoms Biotin 300 mcg PO DAILY Discontinued Verapamil HCl 60 mg PO BID Discharge Medication List Ensure 1 can PO BID-W/MEALS 05/29/18 [History] Acetaminophen Tab [Tylenol] 500 mg PO Q6HR PRN tab 06/05/18 [Rx] Albuterol Sulfate [Proair Hfa] 2 puff INHALATION RT-Q6H PRN 12/11/18 [History] Benzedrx Inhaler 1 puff EA NOSTRIL Q6H PRN 12/11/18 [History] Biotin 300 mcg PO DAILY 12/11/18 [History] Cholecalciferol [Vitamin D3 (25 Mcg = 1000 Iu)] 2,000 unit PO DAILY 12/11/18 [History] Levothyroxine Sodium [Synthroid] 75 mcg PO DAILY 12/11/18 [History] Montelukast [Singulair] 10 mg PO HS PRN 12/11/18 [History] Multivitamins, Thera [Multivitamin (formulary)] 1 tab PO DAILY@1200 12/11/18 [History] Apixaban [Eliquis] 2.5 mg PO BID #60 tablet 12/13/18 [Rx] Aspirin [Adult Low Dose Aspirin EC] 81 mg PO DAILY #30 tablet. 12/13/18 [Rx] Atorvastatin [Lipitor] 40 mg PO HS #30 tab 12/13/18 [Rx] Metoprolol Tartrate [Lopressor] 25 mg PO BID #120 tab 12/13/18 [Rx] Follow up Appointment(s)/Referral(s): Ebenezer Caldwell MD [Primary Care Provider] - 1-2 days Activity/Diet/Wound Care/Special Instructions: Patient notice any increased racing heart increased chest pain, any increased cough or shortness of breath, any increased chest pain, any lightheadedness or dizziness, any tingling numbness of the extremities, any weakness in any part of the body, any bleeding from anywhere, any dark tarry stools, please call 911 and come to the ER Discharge Disposition: HOME SELF-CARE
== END 2018-12-13 16:47 | disposition home or self-care (01) | DRG 282 ==
LOC: EC 20:19 → 3SCARD 21:50 → 2SICU 12-12 02:22
PROVIDERS: ADMIT Internal Medicine; ATTEND Internal Medicine
DX: I48.0 Paroxysmal atrial fibrillation (principal); I21.A1 Myocardial infarction type 2; I49.8 Other specified cardiac arrhythmias; J44.9 Chronic obstructive pulmonary disease, unspecified; E07.9 Disorder of thyroid, unspecified; E78.5 Hyperlipidemia, unspecified; F17.210 Nicotine dependence, cigarettes, uncomplicated; I10 Essential (primary) hypertension; R32 Unspecified urinary incontinence; Z79.890 Hormone replacement therapy; Z79.899 Other long term (current) drug therapy; Z85.51 Personal history of malignant neoplasm of bladder; Z90.710 Acquired absence of both cervix and uterus; Z90.721 Acquired absence of ovaries, unilateral; Z88.2 Allergy status to sulfonamides; Z88.1 Allergy status to other antibiotic agents; Z88.5 Allergy status to narcotic agent; Z91.013 Allergy to seafood; Z80.9 Family history of malignant neoplasm, unspecified; Z83.6 Family history of other diseases of the respiratory system
CPT/HCPCS: 36415; 71046; 80053; 80061; 81003; 83735; 84443; 84484; 85025; 85610; 85730; 93005; 96361; 96365; 96366; 96368; 96376; 99285

== ENCOUNTER → 2019-01-09 | Outpatient (CLI) | payer MEDICARE, BC ==
[2019-01-09 10:40] LABS: Albumin 4.4 g/dL (3.80-4.90); Albumin/Globulin Ratio 2.32 (1.60-3.17); BUN/Creat Ratio 18.75 Ratio (12.00-20.00); Calcium 9.6 mg/dL (8.7-10.3); Globulin 1.9 g/dL (1.6-3.3); LDL Cholesterol,Calculated 55.2 mg/dL (0.0-131.0); Potassium 4.7 mmol/L (3.5-5.5); Total Bilirubin 0.4 mg/dL (0.3-1.2); Total Protein 6.3 g/dL (6.2-8.2); VLDL Calculation 16.8 mg/dL (5.00-40.00)
== END | disposition home or self-care (01) ==
LOC: LABWHC1 06:49
PROVIDERS: ATTEND Nurse Practitioner Adult Health
DX: E78.2 Mixed hyperlipidemia (principal); I48.0 Paroxysmal atrial fibrillation
CPT/HCPCS: 36415; 80053; 80061

== ENCOUNTER → 2019-07-30 | Outpatient (CLI) | payer MEDICARE, BC ==
[2019-07-30 10:41] LABS: Basophils # (A) 0.1 k/uL (0-0.2); Basophils % (A) 1 %; Eosinophils # (A) 0.2 k/uL (0-0.7); Eosinophils % (A) 3 %; HCT 41.1 % (34.0-46.0); HGB 12.6 gm/dL (11.4-16.0); Hypochromasia Slight; Lymphocytes # (A) 1.5 k/uL (1.0-4.8); Lymphocytes % (A) 17 %; MCH 28.7 pg (25.0-35.0); MCHC 30.7 g/dL (31.0-37.0); MCV 93.4 fL (80.0-100.0); Mean Platelet Volume 7.3; Monocytes # (A) 0.6 k/uL (0-1.0); Monocytes % (A) 7 %; Neutrophils # (A) 5.9 k/uL (1.3-7.7); Neutrophils % (A) 71 %; Platelet Count 308 k/uL (150-450); RDW 13.6 % (11.5-15.5); WBC 8.3 k/uL (3.8-10.6)
[2019-07-30 18:03] LABS: African American GFR (CKD) 78.5 (60.0-200.0); Albumin 4.3 g/dL (3.80-4.90); Albumin/Globulin Ratio 2.15 (1.60-3.17); Anion Gap 10.1 mmol/L (4.00-12.00); BUN/Creat Ratio 11.25 Ratio (12.00-20.00); Calcium 9.6 mg/dL (8.7-10.3); Carbon Dioxide 27.9 mmol/L (21.6-31.8); Non-African American GFR(CKD) 67.7 (60.0-200.0); Potassium 3.1 mmol/L (3.5-5.5); Total Bilirubin 0.4 mg/dL (0.2-1.2); Total Protein 6.3 g/dL (6.2-8.2)
== END | disposition home or self-care (01) ==
LOC: LABWHC1 10:06
PROVIDERS: ATTEND Nurse Practitioner Adult Health
DX: I10 Essential (primary) hypertension (principal); I48.0 Paroxysmal atrial fibrillation; E03.9 Hypothyroidism, unspecified
CPT/HCPCS: 36415; 80053; 84443; 85025

== ENCOUNTER → 2020-02-10 | Outpatient (CLI) | payer MEDICARE, BC ==
[2020-02-11 01:36] LABS: T4, Free (Free Thyroxine) 1.6 ng/dL (0.80-1.80)
== END | disposition home or self-care (01) ==
LOC: LABWHC1 15:54
PROVIDERS: ATTEND Psychiatry & Neurology Neurology
DX: G30.1 Alzheimer's disease with late onset (principal); R27.0 Ataxia, unspecified
CPT/HCPCS: 36415; 82607; 84439; 84443

== ENCOUNTER → 2020-02-23 | Outpatient (CLI) | payer MEDICARE, BC ==
[2020-02-23 11:43] LABS: HCT 39.1 % (34.0-46.0); Hypochromasia Slight; MCH 27.9 pg (25.0-35.0); MCHC 30.8 g/dL (31.0-37.0); MCV 90.7 fL (80.0-100.0); Mean Platelet Volume 7.3; Platelet Count 229 k/uL (150-450); RBC 4.31 m/uL (3.80-5.40); RDW 14.4 % (11.5-15.5); WBC 6.7 k/uL (3.8-10.6)
[2020-02-23 15:52] LABS: African American GFR (CKD) 92.2 (60.0-200.0); Albumin 4.1 g/dL (3.80-4.90); Albumin/Globulin Ratio 2.41 (1.60-3.17); Anion Gap 9.1 mmol/L (4.00-12.00); BUN/Creat Ratio 12.86 Ratio (12.00-20.00); Calcium 9.3 mg/dL (8.7-10.3); Carbon Dioxide 28.9 mmol/L (21.6-31.8); Globulin 1.7 g/dL (1.6-3.3); Non-African American GFR(CKD) 79.6 (60.0-200.0); Potassium 3.4 mmol/L (3.5-5.5); Total Bilirubin 0.5 mg/dL (0.2-1.2); Total Protein 5.8 g/dL (6.2-8.2)
== END | disposition home or self-care (01) ==
LOC: LABWHC1 10:31
PROVIDERS: ATTEND Internal Medicine Interventional Cardiology
DX: D48.0 Neoplasm of uncertain behavior of bone and articular cartilage (principal); I10 Essential (primary) hypertension
CPT/HCPCS: 36415; 80053; 85027

== ENCOUNTER 2020-05-19 11:27 | Emergency (ER) | payer MEDICARE, BC ==
[2020-05-19 11:38] VITALS: BP 158/81; PULSE 77; RESP 18; TEMP 97.9
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
[2020-05-19 12:12] LABS: Basophils # (A) 0.1 k/uL (0-0.2); Basophils % (A) 2 %; Eosinophils % (A) 1 %; HCT 40.5 % (34.0-46.0); HGB 13.2 gm/dL (11.4-16.0); Lymphocytes % (A) 18 %; MCH 29.5 pg (25.0-35.0); MCHC 32.7 g/dL (31.0-37.0); Mean Platelet Volume 7.5; Monocytes # (A) 0.3 k/uL (0-1.0); Monocytes % (A) 6 %; Neutrophils # (A) 3.9 k/uL (1.3-7.7); Neutrophils % (A) 72 %; Platelet Count 184 k/uL (150-450); RDW 14.7 % (11.5-15.5); WBC 5.4 k/uL (3.8-10.6)
--- NOTE | 2020-05-19 12:12 | XR ---
EXAMINATION TYPE: XR chest 1V portable DATE OF EXAM: 05/19/2020 COMPARISON: 05/19/2019 HISTORY: Cough TECHNIQUE: Single frontal view of the chest is obtained. FINDINGS: Heart is enlarged. There is a nodule at the left lung base. Hyperinflation suggests COPD t here is diffuse osteopenia. Postsurgical change involving the right shoulder. Biapical pleural thicke mouna. Atherosclerotic change aorta. IMPRESSION: 1. Cardiomegaly and COPD. Left lower lobe nodule stable.
[2020-05-19 12:25] LABS: D-Dimer 0.41 mg/L FEU (<0.60); Partial Thromboplastin Time 25.7 sec (22.0-30.0)
[2020-05-19 12:30] LABS: Albumin 4.3 g/dL (3.5-5.0); Potassium 3.4 mmol/L (3.5-5.1); Total Protein 7.6 g/dL (6.3-8.2)
[2020-05-19 12:35] LABS: C Reactive Protein 23.9 mg/L (<10.0); Calcium 9.6 mg/dL (8.4-10.2); Magnesium 1.6 mg/dL (1.6-2.3); Total Bilirubin 0.7 mg/dL (0.2-1.3)
[2020-05-19] MEDS ORDERED: SODIUM CHLORIDE 0.9% 500 ML 500 ML IV ONE (14:17)
[2020-05-19 20:52] LABS: Ferritin 46.2 ng/mL (10.0-291.0)
== END 2020-05-19 15:06 | disposition home or self-care (01) ==
LOC: EC 11:27
DX: J44.1 Chronic obstructive pulmonary disease with (acute) exacerbation (principal); I10 Essential (primary) hypertension; E03.9 Hypothyroidism, unspecified; Z20.828 Contact with and (suspected) exposure to other viral communicable diseases; F17.200 Nicotine dependence, unspecified, uncomplicated; Z79.51 Long term (current) use of inhaled steroids; Z79.890 Hormone replacement therapy; Z79.899 Other long term (current) drug therapy; Z88.1 Allergy status to other antibiotic agents; Z88.2 Allergy status to sulfonamides; Z88.5 Allergy status to narcotic agent; Z91.018 Allergy to other foods; Z90.89 Acquired absence of other organs; Z90.710 Acquired absence of both cervix and uterus; Z98.42 Cataract extraction status, left eye; Z98.41 Cataract extraction status, right eye; Z85.51 Personal history of malignant neoplasm of bladder; Z85.42 Personal history of malignant neoplasm of other parts of uterus
CPT/HCPCS: 36415; 71045; 80053; 82728; 83605; 83615; 83735; 84145; 85025; 85379; 85610; 85730; 86140; 87040; 87635; 93005; 96360; 99285

== ENCOUNTER → 2020-05-31 | Outpatient (CLI) | payer MEDICARE, BC | END | disposition home or self-care (01) | LOC: LABWHC1 14:24 | PROVIDERS: ATTEND Nurse Practitioner | DX: U07.1 COVID-19 (principal) | CPT/HCPCS: U0003; C9803 ==

== ENCOUNTER → 2020-10-19 | Outpatient (CLI) | payer MEDICARE, BC ==
--- NOTE | 2020-10-19 16:35 | MR ---
EXAMINATION TYPE: MR brain and iac wo/w con DATE OF EXAM: 10/19/2020 COMPARISON: None HISTORY: Dizziness, hearing loss, memory loss TECHNIQUE: Multiplanar, multisequence images of the brain and brainstem, small [id number] images through the internal auditory canals is performed without and with IV contrast, utilizing 4 ml mL intravenous Andrei avist . FINDINGS: Diffusion weighted images demonstrate no evidence of a recent infarct or other diffusion ab normality. There is no extra-axial fluid collection. There is extensive confluent and scattered hype rintensity in the periventricular, pericallosal and subcortical white matter on inversion recovery T2 -weighted sequences, increased signal present within the tang bilaterally. The ventricular system and cisternal spaces are normal in size and appearance. The brain volume is age appropriate. The cerebellopontine angles are unremarkable, there is no abnormal enhancement along the internal aud itory canal, no abnormal soft tissue is seen. Midline structures demonstrate normal morphology. The craniocervical junction appears within normal limits. Post contrast images demonstrate no abnormal enhancement. The dural venous sinuses appear pa tent. The visualized sinuses are remarkable for mucosal disease in the ethmoid air cells and the glob es are intact. IMPRESSION: Age-related atrophy and chronic small vessel ischemia.
== END | disposition home or self-care (01) ==
LOC: RADMRIMAIN 14:18
PROVIDERS: ATTEND Otolaryngology
DX: I67.82 Cerebral ischemia (principal); G31.9 Degenerative disease of nervous system, unspecified
CPT/HCPCS: 70553; A9585

== ENCOUNTER → 2021-01-05 | Outpatient (CLI) | payer MEDICARE, BC ==
--- NOTE | 2021-01-05 13:20 | XR ---
EXAMINATION TYPE: XR abdomen 2V DATE OF EXAM: 01/05/2021 COMPARISON: NONE HISTORY: Constipation TECHNIQUE: One view abdominal series FINDINGS: The osseous structures are intact. The bowel gas pattern is nonspecific. Ossified granuloma left low er lobe. Retained fecal debris throughout the colon. Arthropathy of the hips and degenerative change of the spine. Calcifications in the upper abdomen could be vascular or related to the pancreas.. IMPRESSION: 1. Nonspecific abdomen. Extensive retained debris correlate for constipation.
== END | disposition home or self-care (01) ==
LOC: RADXRMAIN 12:45
PROVIDERS: ATTEND Nurse Practitioner
DX: K59.00 Constipation, unspecified (principal)
CPT/HCPCS: 74019

== ENCOUNTER 2021-02-15 13:18 | Inpatient (IN) | payer MEDICARE, BC ==
[2021-02-15] MEDS ORDERED: SODIUM CHLORIDE 0.9% 1,000 ML IV STA (13:58)
--- NOTE | 2021-02-15 14:12 | ED ---
General Adult HPI - General Source: patient, EMS, RN notes reviewed, old records reviewed Mode of arrival: EMS Limitations: no limitations <Frank Curran - Last Filed: 02/15/21 15:07> <Richard Chance - Last Filed: 02/15/21 16:24> - General Chief complaint: Weakness Stated complaint: Poss dehydrated Time Seen by Provider: 02/15/21 13:25 - History of Present Illness Initial comments: This is an 85-year-old female who presents emergency Department complaining of generalized weakness. Patient states she got up today and she was too weak to stand so she eventually called EMS. Patient denies headache patient denies any numbness or focal weakness. Patient denies any chest pain palpitations difficulty breathing or shortness of breath. Patient denies any injury or trauma. Patient denies abdominal pain. Patient denies any vomiting or diarrhea. Patient denies any dysuria hematuria urinary frequency. Patient states the weakness is been ongoing for the last few months. Patient states she is normally very active she has taken care of her . (Frank Curran) - Related Data Home Medications Medication Instructions Recorded Confirmed Levothyroxine Sodium [Synthroid] 75 mcg PO DAILY 12/11/18 02/15/21 Albuterol Sulfate [Ventolin HFA] 2 puff INHALATION RT-QID PRN 05/19/19 02/15/21 Levocetirizine Dihydrochloride 5 mg PO DAILY 05/19/19 02/15/21 [Xyzal] Metoprolol Tartrate [Lopressor] 25 mg PO BID 05/19/19 02/15/21 Lactulose 10 gm PO DAILY PRN 02/15/21 02/15/21 Umeclidinium Brm/Vilanterol Tr 1 puff INHALATION RT-DAILY 02/15/21 02/15/21 [Anoro Ellipta 62.5-25 Mcg INH] Previous Rx's Medication Instructions Recorded Apixaban [Eliquis] 2.5 mg PO BID #60 tablet 12/13/18 Atorvastatin [Lipitor] 40 mg PO HS #30 tab 12/13/18 Allergies Allergy/AdvReac Type Severity Reaction Status Date / Time azithromycin Allergy Unknown Verified 02/15/21 13:33 codeine Allergy Unknown Verified 02/15/21 13:33 mussels Allergy Unknown Verified 02/15/21 13:33 Sulfa (Sulfonamide Allergy Unknown Verified 02/15/21 13:33 Antibiotics) Review of Systems ROS Other: All systems not noted in ROS Statement are negative. <Frank Curran - Last Filed: 02/15/21 15:07> ROS Other: All systems not noted in ROS Statement are negative. <Richard Chance - Last Filed: 02/15/21 16:24> ROS Statement: Those systems with pertinent positive or pertinent negative responses have been documented in the HPI. 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 History of Any Multi-Drug Resistant Organisms: None Reported Past Surgical History: Adenoidectomy, Back Surgery, Bladder Surgery, Breast Surgery, Hysterectomy, Orthopedic Surgery, Tonsillectomy Additional Past Surgical History / Comment(s): R knee arthroscopic surgery, lumbar laminectomy, R rotator cuff repair, D&C, total hysterectomy, L arm melanoma excised, cystoscopy for instillation to burn bladder holder d/t bladder cancer, R breast benign bx, bilateral cataract removals, bilateral vein stripping, colonoscopy Past Anesthesia/Blood Transfusion Reactions: Postoperative Nausea & Vomiting (PONV) Additional Past Anesthesia/Blood Transfusion Reaction / Comment(s): Pt has received blood in past without reaction. Past Psychological History: Anxiety, Depression Smoking Status: Current every day smoker Past Alcohol Use History: None Reported Past Drug Use History: None Reported - Past Family History Mother Family Medical History: Cancer, Pneumonia, Respiratory Disorder Additional Family Medical History / Comment(s): TB, uterine cancer. Father Family Medical History: No Reported History Additional Family Medical History / Comment(s): Father was healthy. <Frank Curran - Last Filed: 02/15/21 15:07> General Exam Limitations: no limitations <Frank Curran - Last Filed: 02/15/21 15:07> - General Exam Comments Initial Comments: GENERAL: Patient is well-developed and well-nourished. Patient is nontoxic and well- hydrated and is in no acute distress. ENT: Neck is soft and supple. No significant lymphadenopathy is noted. Oropharynx is clear. Moist mucous membranes. Neck has full range of motion without eliciting any pain. EYES: The sclera were anicteric and conjunctiva were pink and moist. Extraocular movements were intact and pupils were equal round and reactive to light. Eyelids were unremarkable. PULMONARY: Unlabored respirations. Good breath sounds bilaterally. No audible rales rhonchi or wheezing was noted. CARDIOVASCULAR: There is a regular rate and rhythm without any murmurs gallops or rubs. ABDOMEN: Soft and nontender with normal bowel sounds. SKIN: Skin is clear with no lesions or rashes and otherwise unremarkable. NEUROLOGIC: Patient is alert and oriented x3. Cranial nerves II through XII are grossly intact. Motor and sensory are also intact. Normal speech, volume and content. Symmetrical smile. MUSCULOSKELETAL: Normal extremities with adequate strength and full range of motion. No lower extremity swelling or edema. No calf tenderness. LYMPHATICS: No significant lymphadenopathy is noted PSYCHIATRIC: Normal psychiatric evaluation. (Frank Curran) Course Vital Signs 02/15/21 02/15/21 02/15/21 13:22 15:16 15:55 Temperature 98.3 F Pulse Rate 81 92 90 Respiratory 20 20 18 Rate Blood Pressure 182/85 189/86 174/84 O2 Sat by Pulse 95 95 96 Oximetry Medical Decision Making - Lab Data Result diagrams: 02/15/21 14:39 02/15/21 14:39 <Frank Curran - Last Filed: 02/15/21 15:07> - Lab Data Result diagrams: 02/15/21 14:39 02/15/21 14:39 <Richard Chance - Last Filed: 02/15/21 16:24> - Medical Decision Making EKG shows normal sinus rhythm at 75 bpm KS interval is on a 34 QRS is 86 QT interval 420 QTC is 469. Patient's EKG shows some slight ST segment elevation in V1 and ST segment elevation in V2. Patient denies any chest pain or pressure patient denies any difficulty breathing shortness of breath. Patient has slight depression in leads V5 and V6. Dr. Chance will be taking over the care of this patient at 3 PM (Frank Curran) Patient's care was signed out to me by previous shift physician. At signout I was told that patient is a 85-year-old female presents to the emergency department for worsening weakness is generalized. Plan at signout was to follow-up with pending labs. She did have a EKG that the EKG machine read as acute MN however, was not activated because patient did not have any active chest symptoms. Patient was evaluated at bedside at 3:20 PM. She denies any symptoms at the bedside. States that she's been having on and off chest pressure that she refuses to identify his pain. She states that she does not have any exertional chest pain. She does however have exertional dyspnea and exertional shortness of breath. Denies any history of coronary artery disease. States that whenever she gets these pressure-like symptoms in her chest that it's mild. Does radiate to the neck and does cause some mild nausea. She denies any symptoms at this time. Repeat EKG was performed showing ST depressions in V5 and V6. There is no ST elevations. Surprisingly her EKG from 321 is significantly different from EKG from 222. Laboratory evaluation was obtained. CBC is unremarkable. Metabolic panel is within acceptable limits. Troponin is negative. Patient reevaluated at bedside at 4:20 PM found to be in stable medical condition. She denies any active symptoms at this time. Chest x-ray shows no acute processes except for new mild cardiomegaly. There is concern for unstable angina given that patient has worsening exertional dyspnea and episodic chest pressure. She is currently asymptomatic. Patient will be admitted for unstable angina. Cardiology consulted. Patient was ordered and given aspirin, hydralazine and topical nitro by previous shift physician Dr. Curran. Patient started on heparin. (Richard Chance) - Lab Data Lab Results 02/15/21 02/15/21 02/15/21 Range/Units 14:39 14:39 14:39 WBC 5.7 (3.8-10.6) k/uL RBC 4.48 (3.80-5.40) m/uL Hgb 13.1 (11.4-16.0) gm/dL Hct 41.6 (34.0-46.0) % MCV 92.9 (80.0-100.0) fL MCH 29.2 (25.0-35.0) pg MCHC 31.5 (31.0-37.0) g/dL RDW 14.3 (11.5-15.5) % Plt Count 184 (150-450) k/uL MPV 7.4 Neutrophils % 68 % Lymphocytes % 22 % Monocytes % 5 % Eosinophils % 2 % Basophils % 1 % Neutrophils # 3.9 (1.3-7.7) k/uL Lymphocytes # 1.2 (1.0-4.8) k/uL Monocytes # 0.3 (0-1.0) k/uL Eosinophils # 0.1 (0-0.7) k/uL Basophils # 0.1 (0-0.2) k/uL Sodium 136 L (137-145) mmol/L Potassium 3.8 (3.5-5.1) mmol/L Chloride 105 (98-107) mmol/L Carbon Dioxide 26 (22-30) mmol/L Anion Gap 5 mmol/L BUN 11 (7-17) mg/dL Creatinine 0.59 (0.52-1.04) mg/dL Est GFR (CKD-EPI)AfAm >90 (>60 ml/min/1.73 sqM) Est GFR (CKD-EPI)NonAf 84 (>60 ml/min/1.73 sqM) Glucose 93 (74-99) mg/dL Plasma Lactic Acid Abelino 1.0 (0.7-2.0) mmol/L Calcium 9.0 (8.4-10.2) mg/dL Magnesium 1.7 (1.6-2.3) mg/dL Total Bilirubin 0.8 (0.2-1.3) mg/dL AST 34 (14-36) U/L ALT 10 (4-34) U/L Alkaline Phosphatase 73 (38-126) U/L Troponin I (0.000-0.034) ng/mL Total Protein 6.4 (6.3-8.2) g/dL Albumin 3.7 (3.5-5.0) g/dL TSH 2.110 (0.465-4.680) mIU/L 02/15/21 Range/Units 14:39 WBC (3.8-10.6) k/uL RBC (3.80-5.40) m/uL Hgb (11.4-16.0) gm/dL Hct (34.0-46.0) % MCV (80.0-100.0) fL MCH (25.0-35.0) pg MCHC (31.0-37.0) g/dL RDW (11.5-15.5) % Plt Count (150-450) k/uL MPV Neutrophils % % Lymphocytes % % Monocytes % % Eosinophils % % Basophils % % Neutrophils # (1.3-7.7) k/uL Lymphocytes # (1.0-4.8) k/uL Monocytes # (0-1.0) k/uL Eosinophils # (0-0.7) k/uL Basophils # (0-0.2) k/uL Sodium (137-145) mmol/L Potassium (3.5-5.1) mmol/L Chloride (98-107) mmol/L Carbon Dioxide (22-30) mmol/L Anion Gap mmol/L BUN (7-17) mg/dL Creatinine (0.52-1.04) mg/dL Est GFR (CKD-EPI)AfAm (>60 ml/min/1.73 sqM) Est GFR (CKD-EPI)NonAf (>60 ml/min/1.73 sqM) Glucose (74-99) mg/dL Plasma Lactic Acid Abelino (0.7-2.0) mmol/L Calcium (8.4-10.2) mg/dL Magnesium (1.6-2.3) mg/dL Total Bilirubin (0.2-1.3) mg/dL AST (14-36) U/L ALT (4-34) U/L Alkaline Phosphatase (38-126) U/L Troponin I <0.012 (0.000-0.034) ng/mL Total Protein (6.3-8.2) g/dL Albumin (3.5-5.0) g/dL TSH (0.465-4.680) mIU/L Disposition <Frank Curran - Last Filed: 02/15/21 15:07> <Richard Chance - Last Filed: 02/15/21 16:24> Clinical Impression: Unstable angina Disposition: ADMITTED IP TO THIS HOSP Condition: Fair Referrals: Ebenezer Caldwell MD [Primary Care Provider] - 1-2 days
[2021-02-15] MEDS ORDERED: hydrALAZINE HCL 20 MG/ML 1 ML VIAL IVP STA (14:35)
[2021-02-15 14:47] LABS: Basophils # (A) 0.1 k/uL (0-0.2); Basophils % (A) 1 %; Eosinophils # (A) 0.1 k/uL (0-0.7); Eosinophils % (A) 2 %; HCT 41.6 % (34.0-46.0); HGB 13.1 gm/dL (11.4-16.0); Lymphocytes # (A) 1.2 k/uL (1.0-4.8); Lymphocytes % (A) 22 %; MCH 29.2 pg (25.0-35.0); MCHC 31.5 g/dL (31.0-37.0); MCV 92.9 fL (80.0-100.0); Mean Platelet Volume 7.4; Monocytes # (A) 0.3 k/uL (0-1.0); Monocytes % (A) 5 %; Neutrophils # (A) 3.9 k/uL (1.3-7.7); Neutrophils % (A) 68 %; Platelet Count 184 k/uL (150-450); RBC 4.48 m/uL (3.80-5.40); RDW 14.3 % (11.5-15.5); WBC 5.7 k/uL (3.8-10.6)
[2021-02-15 14:57] LABS: ALT 10 U/L (4-34); AST 34 U/L (14-36); African American GFR (CKD) >90 (>60 ml/min/1.73 sqM); Albumin 3.7 g/dL (3.5-5.0); Alkaline Phosphatase 73 U/L (38-126); Anion Gap 5 mmol/L; Blood Urea Nitrogen 11 mg/dL (7-17); Carbon Dioxide 26 mmol/L (22-30); Chloride 105 mmol/L (98-107); Glucose 93 mg/dL (74-99); Magnesium 1.7 mg/dL (1.6-2.3); Non-African American GFR(CKD) 84 (>60 ml/min/1.73 sqM); Sodium 136 mmol/L (137-145); Total Bilirubin 0.8 mg/dL (0.2-1.3); Total Protein 6.4 g/dL (6.3-8.2)
[2021-02-15 14:58] LABS: Potassium 3.8 mmol/L (3.5-5.1)
[2021-02-15] MEDS ORDERED: NITROGLYCERIN OINT 1 INCH/GM PACKET TOPICAL STA (15:01)
[2021-02-15] MEDS ORDERED: ASPIRIN 81 MG PO STA (15:01)
--- NOTE | 2021-02-15 15:31 | XR ---
EXAMINATION TYPE: XR chest 2V DATE OF EXAM: 02/15/2021 COMPARISON: Chest x-ray May 19, [address] older studies[address] Chest CT March 07, 2018 HISTORY: Weakness. TECHNIQUE: Frontal and lateral views of the chest are obtained. FINDINGS: There is chronic emphysematous and pulmonary fibrotic change without suspicious new focal air space opacity, pleural effusion, or pneumothorax seen. Stable linear 1 cm basilar calcified nodu le or benign granuloma. Underlying pectus deformity redemonstrated. The cardiac silhouette size is mi ldly enlarged on current study with atherosclerotic and ectatic thoracic aorta redemonstrated. The osseous structures are demineralized. Underlying scoliosis is redemonstrated. Metallic anchors right humeral head are again seen. IMPRESSION: Chronic changes without new acute pulmonary process. Mild cardiomegaly now present.
[2021-02-15] MEDS ORDERED: HEPARIN SODIUM 1,000 UN/ML (10ML VL) IV ONE (15:56)
[2021-02-15] MEDS ORDERED: NITROGLYCERIN SL TABS 0.4 MG TAB SUBLINGUAL PRN (16:19)
[2021-02-15 16:42] LABS: Prothrombin Time 10.5 sec (9.0-12.0)
[2021-02-15 16:45] LABS: Partial Thromboplastin Time 19.8 sec (22.0-30.0)
[2021-02-15] MEDS ORDERED: ALBUTEROL HFA INHALER INHALATION PRN (17:35)
--- NOTE | 2021-02-15 18:01 | P.HPIM ---
History of Present Illness H&P Date: 02/15/21 Chief Complaint: Near syncope 85-year-old female with significant medical history of paroxysmal atrial fibrillation, COPD with intermittent use of oxygen, hyperlipidemia, hyper tension, hypothyroidism, history of bladder cancer treated with instillation, melanoma removed under left arm, anxiety, depression, memory impairment is admitted to the hospital for chest discomfort associated with near syncopal episode. She states she got up this a.m., was very weak at the side of the bed was unable to stand, and needed to lay down on the bed due to severe dizziness, nausea, and shortness of breath. She states, "episodes have been occurring frequent over the last 2 week duration, but not to this intensity." Patient had extensive diagnostic workup in the emergency department, chest x-ray shows new cardiomegaly; 12-lead EKG has ST depressions in leads V5 and V6; diagnostic labs unremarkable. Patient is initiated on a heparin drip per ACS protocol. Cardiology consulted for rule out an acute cardiac event. Review of Systems Constitutional: Reports chronic pain, Reports fatigue, Reports poor appetite, Reports weakness Ears: bilateral: decreased hearing Cardiovascular: Reports dyspnea on exertion, Reports lightheadedness, Reports syncope (Near syncopal episode) Respiratory: Reports dyspnea Gastrointestinal: Reports nausea Musculoskeletal: Reports as per HPI Integumentary: Reports as per HPI Neurological: Reports balance difficulties, Reports hearing difficulties, Reports lack of coordination, Reports memory loss, Reports syncope (Near syncopa l), Reports weakness Psychiatric: Reports anxiety Endocrine: Reports fatigue Hematologic/Lymphatic: Reports as per HPI Allergic/Immunologic: Reports as per HPI Past Medical History Past Medical History: Atrial Fibrillation, Cancer, COPD, Hyperlipidemia, Hypert ension, Thyroid Disorder Additional Past Medical History / Comment(s): Brugada syndrome, Afib RVR, bladder CA treated with instillation, melanoma removed under L arm with surgery, past home oxygen use but not currently, hypothyroid, 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 History of Any Multi-Drug Resistant Organisms: None Reported Past Surgical History: Adenoidectomy, Back Surgery, Bladder Surgery, Breast Surgery, Hysterectomy, Orthopedic Surgery, Tonsillectomy Additional Past Surgical History / Comment(s): R knee arthroscopic surgery, lumbar laminectomy, R rotator cuff repair, D&C, total hysterectomy, L arm melanoma excised, cystoscopy for instillation to burn bladder holder d/t bladder cancer, R breast benign bx, bilateral cataract removals, bilateral vein stripping, colonoscopy Past Anesthesia/Blood Transfusion Reactions: Postoperative Nausea & Vomiting (PONV) Additional Past Anesthesia/Blood Transfusion Reaction / Comment(s): Pt has received blood in past without reaction. Past Psychological History: Anxiety, Depression Smoking Status: Current every day smoker Past Alcohol Use History: None Reported Past Drug Use History: None Reported - Past Family History Mother Family Medical History: Cancer, Pneumonia, Respiratory Disorder Additional Family Medical History / Comment(s): TB, uterine cancer. Father Family Medical History: No Reported History Additional Family Medical History / Comment(s): Father was healthy. Medications and Allergies Home Medications and Allergies Comment(s): Medications and ALLERGIES reviewed Home Medications Medication Instructions Recorded Confirmed Type Levothyroxine Sodium [Synthroid] 75 mcg PO DAILY 12/11/18 02/15/21 History Apixaban [Eliquis] 2.5 mg PO BID #60 tablet 12/13/18 02/15/21 Rx Atorvastatin [Lipitor] 40 mg PO HS #30 tab 12/13/18 02/15/21 Rx Albuterol Sulfate [Ventolin HFA] 2 puff INHALATION RT-QID PRN 05/19/19 02/15/21 History Levocetirizine Dihydrochloride 5 mg PO DAILY 05/19/19 02/15/21 History [Xyzal] Metoprolol Tartrate [Lopressor] 25 mg PO BID 05/19/19 02/15/21 History Lactulose 10 gm PO DAILY PRN 02/15/21 02/15/21 History Umeclidinium Brm/Vilanterol Tr 1 puff INHALATION RT-DAILY 02/15/21 02/15/21 History [Anoro Ellipta 62.5-25 Mcg INH] Allergies Allergy/AdvReac Type Severity Reaction Status Date / Time azithromycin Allergy Unknown Verified 02/15/21 13:33 codeine Allergy Unknown Verified 02/15/21 13:33 mussels Allergy Unknown Verified 02/15/21 13:33 Sulfa (Sulfonamide Allergy Unknown Verified 02/15/21 13:33 Antibiotics) Physical Exam Vitals: Vital Signs Temp Pulse Resp BP Pulse Ox 02/15/21 17:00 95 18 159/78 96 02/15/21 15:55 90 18 174/84 96 02/15/21 15:16 92 20 189/86 95 02/15/21 13:22 98.3 F 81 20 182/85 95 Intake and Output 02/15/21 02/15/21 02/15/21 06:59 14:59 22:59 Other: Weight 36.287 kg - Constitutional General appearance: cooperative, mild distress, thin - EENT Eyes: edentulous, EOMI, PERRLA, normal appearance ENT: hard of hearing Ears: bilateral: normal - Neck Neck: normal ROM Carotids: bilateral: upstroke normal Thyroid: bilateral: normal size - Respiratory Respiratory: bilateral: diminished (Anterior and posterior lung baca) - Cardiovascular Normal sinus rhythm with ST depression in leads V5 and V6 Heart rate: 78 Rhythm: regular Heart sounds: normal: S1, S2 radial pulse Peripheral Pulses: bilateral: Normal dorsalis pedis Peripheral Pulses: bilateral: Normal - Gastrointestinal General gastrointestinal: normal bowel sounds - Integumentary Integumentary: decreased turgor - Neurologic Neurologic: CNII-XII intact - Musculoskeletal Musculoskeletal: generalized weakness - Psychiatric Psychiatric: A&O x's 3, appropriate affect, intact judgment & insight Results CBC & Chem 7: 02/15/21 14:39 02/15/21 14:39 Labs: Abnormal Lab Results - Last 24 Hours (Table) 02/15/21 02/15/21 Range/Units 14:39 16:20 APTT 19.8 L (22.0-30.0) sec Sodium 136 L (137-145) mmol/L Chest x-ray: report reviewed Thrombosis Risk Factor Assmnt - Choose All That Apply Any of the Below Risk Factors Present?: Yes Each Factor Represents 1 point: Abnormal pulmonary function (COPD) Each Risk Factor Represents 3 Points: Age 75 years or older Thrombosis Risk Factor Assessment Total Risk Factor Score: 4 Thrombosis Risk Factor Assessment Level: Moderate Risk Assessment and Plan Assessment: Near syncopal episode Paroxysmal nature fibrillation Hypertension Dyslipidemia COPD with intermittent use of oxygen History of bladder CA History of melanoma under left arm Anxiety Depression Nicotine dependence Memory impairment Orthopedic surgeries Full code Plan: Near syncopal episode, possibly related to cardiovascular event, acute changes a 12-lead EKG with ST depression in V5 and V6; initiated on heparin drip, consulta tion with cardiology for recommendations Hypertension, continue antihypertensives to control blood pressure less than 150/90 COPD, continue maintenance inhaler and albuterol as needed Continue to monitor vital signs and diagnostic testing Continue home medications Further recommendations to come based on clinical condition Time with Patient: Greater than 30
[2021-02-15] MEDS: HEPARIN SOD,PORK IN 0.45% NACL 25,000 UNIT in 0.45% NACL 1 250ML.BAG IV SCH (18:26)
[2021-02-15 19:55] LABS: Appearance,Urine Clear (Clear); Bilirubin,Urine Negative (Negative); Blood,Urine Negative (Negative); Color,Urine Light Yellow; Glucose,Urine (UA) Negative (Negative); Ketones,Urine Negative (Negative); Leukocyte Esterase,Urine Negative (Negative); Nitrite,Urine Negative (Negative); PH, Urine 7.5 (5.0-8.0); Protein,Urine Negative (Negative); Specific Gravity,Urine 1.005 (1.001-1.035); Urobilinogen,Urine <2.0 mg/dL (<2.0)
[2021-02-15] MEDS: METOPROLOL TARTRATE 25 MG TAB PO SCH (21:11)
[2021-02-15] MEDS: ATORVASTATIN 40 MG TAB PO SCH (21:11)
[2021-02-15] MEDS ORDERED: ACETAMINOPHEN TAB 325 MG TAB PO PRN (21:32)
[2021-02-15] MEDS ORDERED: hydrALAZINE HCL 20 MG/ML 1 ML VIAL IVP PRN (22:49)
[2021-02-16] MEDS: HEPARIN SODIUM 1,000 UN/ML (10ML VL) IV PRN ×2 (01:39→07:20)
[2021-02-16] MEDS: LEVOTHYROXINE 75 MCG TAB PO SCH (05:35)
[2021-02-16] MEDS: HEPARIN SOD,PORK IN 0.45% NACL 25,000 UNIT in 0.45% NACL 1 250ML.BAG IV SCH (07:12)
[2021-02-16] MEDS: METOPROLOL TARTRATE 25 MG TAB PO SCH ×2 (07:19→20:55)
[2021-02-16] MEDS: PANTOPRAZOLE 40 MG TABLET PO SCH (07:19)
[2021-02-16] MEDS: LORATADINE 10 MG TAB PO SCH (07:19)
[2021-02-16] MEDS: IPRATROPIUM 0.5 MG/2.5 ML NEBU INHALATION SCH ×4 (07:32→19:02)
[2021-02-16] MEDS: FORMOTEROL FUMARATE 20 MCG/2 ML NEBU INHALATION SCH ×2 (07:32→19:02)
[2021-02-16] MEDS ORDERED: methylPREDNISolone SOD SUCCI 40 MG/ML 1 ML VIAL IV SCH (08:30)
[2021-02-16] MEDS ORDERED: ASPIRIN 81 MG PO SCH (09:00)
[2021-02-16] MEDS ORDERED: ASPIRIN 325 MG TAB PO SCH (09:00)
[2021-02-16] MEDS: APIXABAN 2.5 MG TABLET PO SCH ×2 (09:22→20:55)
[2021-02-16] MEDS: ISOSORBIDE MONONITRATE ER 30 MG TAB.ER.24H PO SCH (09:22)
[2021-02-16] MEDS: LOSARTAN 25 MG TAB PO SCH (09:22)
[2021-02-16 09:41] LABS: Basophils # (A) 0.07 X 10*3/uL (0.00-0.10); Basophils % (A) 1.2 %; Eosinophils # (A) 0.16 X 10*3/uL (0.04-0.35); Eosinophils % (A) 2.7 %; HCT 38.4 % (37.2-46.3); Lymphocytes # (A) 1.64 X 10*3/uL (0.90-5.00); Lymphocytes % (A) 28.2 %; MCH 28.7 pg (27.0-32.0); MCHC 31.3 g/dL (32.0-37.0); MCV 91.9 fL (80.0-97.0); Mean Platelet Volume 10.6 fL (9.5-12.2); Monocytes # (A) 0.47 X 10*3/uL (0.20-1.00); Monocytes % (A) 8.1 %; Neutrophils # (A) 3.47 X 10*3/uL (1.80-7.70); Neutrophils % (A) 59.6 %; Platelet Count 213 X 10*3/uL (140-440); RBC 4.18 X 10*6/uL (4.10-5.20); RDW 14.6 % (11.5-14.5); WBC 5.82 X 10*3/uL (4.50-10.00)
[2021-02-16 10:24] VITALS: BMI 13.7
[2021-02-16 10:40] LABS: African American GFR (CKD) 91.6 (60.0-200.0); Calcium 8.9 mg/dL (8.7-10.3); Chol/HDL Ratio 2.77; LDL Cholesterol,Calculated 104.8 mg/dL (0.0-131.0); Magnesium 1.7 mg/dL (1.5-2.4); Potassium 3.6 mmol/L (3.5-5.5); VLDL Calculation 12.2 mg/dL (5.00-40.00)
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
--- NOTE | 2021-02-16 12:30 | PN ---
PROGRESS NOTE Mrs. Nicole is an 85-year-old female who presented with symptoms of progressive dyspnea, dizziness, unsteadiness as well as symptoms of progressive nausea. She has a history of chronic tobacco use, but no history of documented obstructive coronary artery disease. Her EKG showed T-wave inversion in the lateral leads. Her cardiac enzyme revealed no evidence of acute myocardial infarction. I had a long discussion with the patient regarding the options, including clinical observation versus coronary angiography. The advantages and disadvantages of both approaches were discussed with her in detail. She is in favor of continuing clinical observation at this time. I will obtain an echocardiogram with Doppler. Will continue her on the beta renetta, statin and the Eliquis. I will start her on low-dose aspirin. I will add nitrate to her regimen and, depending on her progress, further recommendations will be made. The recommendations were discussed with her in detail. JESSE / JULIO: [id number] /
[2021-02-16 12:31] LABS: Glucose,Whole Blood 155 mg/dL (75-99)
[2021-02-16] MEDS ORDERED: Magnesium Replacement Protocol 1 EACH MISC MISCELLANE PRN (15:09)
[2021-02-16] MEDS: INSULIN ASPART (NovoLOG) 100 UNIT/ML VIAL SQ SCH ×3 (16:51→20:56)
[2021-02-16] MEDS: methylPREDNISolone SOD SUCCI 40 MG/ML 1 ML VIAL IV SCH ×2 (16:51→20:55)
[2021-02-16] MEDS: MAGNESIUM SULFATE-D5W PMX 1 GM in DEXTROSE/WATER 1 100ML.BAG IVPB SCH ×2 (16:52→18:13)
[2021-02-16 17:34] LABS: Glucose,Whole Blood 154 mg/dL (75-99)
--- NOTE | 2021-02-16 18:06 | P.PN ---
Subjective Progress Note Date: 02/16/21 Principal diagnosis: Near-syncopal episode Twelve-lead EKG changes ST depression in V5 and V6 COPD without exacerbation 85-year-old female with significant medical history of paroxysmal atrial fibrillation, COPD with intermittent use of oxygen, hyperlipidemia, hypertension, hypothyroidism, history of bladder cancer treated with instillation, melanoma removed under left arm, anxiety, depression, memory impairment is admitted to the hospital for chest discomfort associated with near syncopal episode. She states she got up this a.m., was very weak at the side of the bed was unable to stand, and needed to lay down on the bed due to severe dizziness, nausea, and shortness of breath. She states, "episodes have been occurring frequent over the last 2 week duration, but not to this intensity." Patient had extensive diagnostic workup in the emergency department, chest x-ray shows new cardiomegaly; 12-lead EKG has ST depressions in leads V5 and V6; diagnostic labs unremarkable. Patient is initiated on a heparin drip per ACS protocol. Cardiology consulted for rule out an acute cardiac event. 02/16/2021 Patient seen and examined at bedside. Patient resting comfortably in bed, she denies fever, chills, shortness of breath, chest pain, palpitations, nausea, vomiting abdominal pain or diarrhea at this time. Review diagnostic testing and vital signs. Spoke with cardiology regarding treatment plan obtain echocardiogram, aggressive medical treatment of syncopal episode with associated ST depression in V5 and V6. Objective - Vital Signs Vital signs: Vital Signs Temp 98.7 F 02/16/21 14:59 Pulse 72 02/16/21 15:24 Resp 16 02/16/21 14:59 BP 138/64 02/16/21 14:59 Pulse Ox 94 L 02/16/21 14:59 Intake & Output 02/15/21 02/16/21 02/16/21 18:59 06:59 18:59 Intake Total 31.494 30 Output Total 350 Balance 31.494 -320 Weight 36.287 kg 36.287 kg Intake: Intake, IV Titration 31.494 30 Amount Heparin Sod,Pork in 0.45% 31.494 30 NaCl 25,000 unit In 0.45 % NaCl 1 250ml.bag @ 12 UNITS/KG/HR 4.354 mls/hr IV .Q24H [facility] Rx#: [id number] Output: Urine 350 Other: Voiding Method Bedside Commode Bedside Commode # Voids 1 1 - Constitutional General appearance: Present: cooperative, mild distress - EENT Eyes: Present: EOMI, PERRLA, normal appearance ENT: Present: hard of hearing, normal oropharynx Ears: bilateral: normal - Neck Neck: Present: normal ROM Carotids: bilateral: upstroke normal Thyroid: bilateral: normal size - Respiratory Respiratory: bilateral: wheezing (Anterior and posterior lung baca) - Cardiovascular Details: Normal sinus rhythm with noted new ST depression in V5 and V6 Heart rate: 84 Rhythm: regular Heart sounds: normal: S1, S2 Abnormal Heart Sounds: Present: systolic murmur - Gastrointestinal General gastrointestinal: Present: normal bowel sounds, soft - Integumentary Integumentary: Present: decreased turgor, pale - Neurologic Neurologic: Present: CNII-XII intact - Musculoskeletal Musculoskeletal: Present: generalized weakness - Psychiatric Psychiatric: Present: A&O x's 3 - Allied health notes Allied health notes reviewed: nursing - Labs CBC & Chem 7: 02/16/21 05:33 02/16/21 05:33 Labs: Abnormal Lab Results - Last 24 Hours (Table) 02/16/21 02/16/21 02/16/21 Range/Units 05:33 05:33 12:26 MCHC 31.3 L (32.0-37.0) g/dL RDW 14.6 H (11.5-14.5) % POC Glucose (mg/dL) 155 H (75-99) mg/dL HDL Cholesterol 66.0 H (40.0-60.0) mg/dL 02/16/21 Range/Units 17:32 MCHC (32.0-37.0) g/dL RDW (11.5-14.5) % POC Glucose (mg/dL) 154 H (75-99) mg/dL HDL Cholesterol (40.0-60.0) mg/dL Assessment and Plan Assessment: Near syncopal episode Paroxysmal atrial fibrillation New ST depression on EKG leads V5 and V6 Hypertension Dyslipidemia COPD with intermittent use of oxygen History of bladder CA History of melanoma under left arm Anxiety Depression Nicotine dependence Memory impairment Orthopedic surgeries Full code Plan: Near syncopal episode, possibly related to cardiovascular event, acute changes a 12-lead EKG with ST depression in V5 and V6; consultation with cardiology for recommendations Hypertension, continue antihypertensives to control blood pressure less than 150/90 COPD, continue maintenance inhaler and albuterol as needed Continue to monitor vital signs and diagnostic testing Continue home medications Further recommendations to come based on clinical condition Time with Patient: Greater than 30
[2021-02-16 20:29] LABS: Glucose,Whole Blood 209 mg/dL (75-99)
[2021-02-16] MEDS: ATORVASTATIN 40 MG TAB PO SCH (20:55)
[2021-02-17] MEDS: methylPREDNISolone SOD SUCCI 40 MG/ML 1 ML VIAL IV SCH ×2 (02:42→08:03)
[2021-02-17 02:47] LABS: Glucose,Whole Blood 181 mg/dL (75-99)
[2021-02-17] MEDS: LEVOTHYROXINE 75 MCG TAB PO SCH (05:25)
[2021-02-17] MEDS: FORMOTEROL FUMARATE 20 MCG/2 ML NEBU INHALATION SCH ×2 (07:15→20:03)
[2021-02-17] MEDS: IPRATROPIUM 0.5 MG/2.5 ML NEBU INHALATION SCH ×4 (07:15→20:03)
[2021-02-17 07:28] LABS: Glucose,Whole Blood 122 mg/dL (75-99)
[2021-02-17] MEDS: INSULIN ASPART (NovoLOG) 100 UNIT/ML VIAL SQ SCH ×4 (07:56→22:57)
[2021-02-17] MEDS: LOSARTAN 25 MG TAB PO SCH (08:03)
[2021-02-17] MEDS: METOPROLOL TARTRATE 25 MG TAB PO SCH ×2 (08:03→20:40)
[2021-02-17] MEDS: ISOSORBIDE MONONITRATE ER 30 MG TAB.ER.24H PO SCH (08:03)
[2021-02-17] MEDS: PANTOPRAZOLE 40 MG TABLET PO SCH (08:03)
[2021-02-17] MEDS: LORATADINE 10 MG TAB PO SCH (08:03)
[2021-02-17] MEDS: APIXABAN 2.5 MG TABLET PO SCH ×2 (08:03→20:40)
[2021-02-17] MEDS ORDERED: ASPIRIN 81 MG PO SCH (09:00)
[2021-02-17 09:32] LABS: Basophils # (A) 0.01 X 10*3/uL (0.00-0.10); Basophils % (A) 0.1 %; Eosinophils # (A) 0 X 10*3/uL (0.04-0.35); Eosinophils % (A) 0 %; HCT 34.9 % (37.2-46.3); HGB 11.2 g/dL (12.0-15.0); Lymphocytes # (A) 0.98 X 10*3/uL (0.90-5.00); Lymphocytes % (A) 9.1 %; MCH 29.9 pg (27.0-32.0); MCHC 32.1 g/dL (32.0-37.0); MCV 93.3 fL (80.0-97.0); Monocytes # (A) 0.16 X 10*3/uL (0.20-1.00); Monocytes % (A) 1.5 %; Neutrophils # (A) 9.54 X 10*3/uL (1.80-7.70); Neutrophils % (A) 88.9 %; Platelet Count 207 X 10*3/uL (140-440); RBC 3.74 X 10*6/uL (4.10-5.20); RDW 14.4 % (11.5-14.5); WBC 10.73 X 10*3/uL (4.50-10.00)
--- NOTE | 2021-02-17 10:22 | PN ---
PROGRESS NOTE Ms. Nicole is an 85-year-old female with a history of chronic tobacco use, who presented with symptoms of nausea, shortness of breath and fatigue that has been progressive. She has a history of paroxysmal fibrillation, but has been in sinus mechanism. She is feeling well this morning. She is denying any chest pain. She denies any dizziness or palpitation. She denies any nausea. She had T-wave inversion in lateral leads and the patient wanted to continue maximizing medical therapy. Was not interested in proceeding with aggressive cardiac workup. On the monitor, she continued to be in sinus mechanism. She continues to be at this time on Eliquis 2.5 mg twice a day, Lipitor 40 mg daily, isosorbide mononitrate 30 mg daily, losartan 25 mg daily, metoprolol tartrate 25 mg twice a day. PHYSICAL EXAMINATION: Blood pressure running in the 130s to 150s with a heart rate in 70s. Lungs decreased air exchange. No wheezes. Heart: Regular rate and rhythm S1, S2. No S3 with a systolic murmur. No diastolic murmur. Abdomen: Soft nontender. Extremities: No edema. IMPRESSION: 1. Symptoms of nausea, fatigue and dizziness. No evidence of acute coronary syndrome with T-wave inversion laterally that could represent obstructive coronary artery disease. 2. Paroxysmal atrial fibrillation. 3. Chronic tobacco use. 4. Hypertension. 5. Hyperlipidemia. RECOMMENDATIONS: Patient should be able to be discharged home today and followed as an outpatient. The importance of smoking cessation was discussed with her. MMODL / KATHLEENN: [id number] /
[2021-02-17 10:25] LABS: African American GFR (CKD) 96.3 (60.0-200.0); Anion Gap 6.9 mmol/L (4.00-12.00); BUN/Creat Ratio 31.67 Ratio (12.00-20.00); Carbon Dioxide 27.1 mmol/L (21.6-31.8); Non-African American GFR(CKD) 83.1 (60.0-200.0); Potassium 4.1 mmol/L (3.5-5.5)
--- NOTE | 2021-02-17 10:42 | P.PN ---
Progress Note - Text Echocardiogram unable to upload into [employer]. Report Reviewed. Read by Dr. Pal on 02/16/21. Echocardiogram revealed left ventricular systolic function is normal and EF between 5560 percent, mild aortic regurgitation, mild mitral regurgitation, mild tricuspid regurgitation, mild pulmonary hypertension with an RVSP of 39 mmHg
--- NOTE | 2021-02-17 11:31 | ECHOF ---
Referral Reason: MEASUREMENTS -------- HEIGHT: 162.6 cm WEIGHT: 36.3 kg BP: 145/68 RVIDd: 1.8 cm (< 3.3) IVSd: 1.6 cm (0.6 - 1.1) LVIDd: 2.5 cm (3.9 - 5.3) LVPWd: 1.6 cm (0.6 - 1.1) IVSs: 1.9 cm LVIDs: 1.4 cm LVPWs: 2.0 cm LA Diam: 2.2 cm (2.7 - 3.8) Ao Diam: 2.8 cm (2.0 - 3.7) AV Cusp: 2.0 cm (1.5 - 2.6) MV EXCURSION: 10.901 mm (> 18.000) MV EF SLOPE: 22 mm/s (70 - 150) EPSS: 0.3 cm MV E Jalen: 0.52 m/s MV DecT: 189 ms MV A Jalen: 0.81 m/s MV E/A Ratio: 0.64 AR PHT: 722 ms RAP: 5.00 mmHg RVSP: 39.17 mmHg FINDINGS -------- Sinus rhythm. This was a technically adequate study. The left ventricular size is normal. There is moderate concentric left ventricular hypertrophy. O verall left ventricular systolic function is normal with, an EF between 55 - 60 %. The right ventricle is normal in size. The left atrial size is normal. The right atrium was not well visualized. Interatrial and interventricular septum intact. There is mild aortic valve sclerosis. There is mild aortic regurgitation. There is no evidence of aortic stenosis. Mild mitral annular calcification present. Mild mitral regurgitation is present. The tricuspid valve appears structurally normal. Mild tricuspid regurgitation present. There is m ild pulmonary hypertension. The right ventricular systolic pressure, as measured by Doppler, is 39. 17mmHg. There is no pulmonic regurgitation present. The aortic root size is normal. IVC Not well visulized. There is no pericardial effusion. CONCLUSIONS -------- 1. The left ventricular size is normal. 2. There is moderate concentric left ventricular hypertrophy. 3. Overall left ventricular systolic function is normal with, an EF between 55 - 60 %. 4. The left atrial size is normal. 5. There is mild aortic regurgitation. 6. Mild mitral regurgitation is present. 7. Mild tricuspid regurgitation present. 8. There is mild pulmonary hypertension. PLATFORM MATERIAL HANDLING SUPERVISOR: Evelin Freitas RDCS
[2021-02-17 11:58] LABS: Glucose,Whole Blood 133 mg/dL (75-99)
--- NOTE | 2021-02-17 14:10 | P.PN ---
Subjective Progress Note Date: 02/17/21 Principal diagnosis: Near-syncopal episode Twelve-lead EKG changes ST depression in V5 and V6 COPD without exacerbation 85-year-old female with significant medical history of paroxysmal atrial fibrillation, COPD with intermittent use of oxygen, hyperlipidemia, hypertension, hypothyroidism, history of bladder cancer treated with instillation, melanoma removed under left arm, anxiety, depression, memory impairment is admitted to the hospital for chest discomfort associated with near syncopal episode. She states she got up this a.m., was very weak at the side of the bed was unable to stand, and needed to lay down on the bed due to severe dizziness, nausea, and shortness of breath. She states, "episodes have been occurring frequent over the last 2 week duration, but not to this intensity." Patient had extensive diagnostic workup in the emergency department, chest x-ray shows new cardiomegaly; 12-lead EKG has ST depressions in leads V5 and V6; diagnostic labs unremarkable. Patient is initiated on a heparin drip per ACS protocol. Cardiology consulted for rule out an acute cardiac event. 02/16/2021 Patient seen and examined at bedside. Patient resting comfortably in bed, she denies fever, chills, shortness of breath, chest pain, palpitations, nausea, vomiting abdominal pain or diarrhea at this time. Review diagnostic testing and vital signs. Spoke with cardiology regarding treatment plan obtain echocardiogram, aggressive medical treatment of syncopal episode with associated ST depression in V5 and V6. 02/17/2021 Patient seen and examined at bedside. Patient resting comfortably in bed. Patient endorses mild shortness of breath and generalized weakness. Patient denies fever, chills, chest pain, palpitations, abdominal pain nausea or vomiting. Patient has been seen by cardiology for expert opinion and treatment plan, we'll continue with cardiac medications per cardiology. Patient will be switched to oral corticosteroids for COPD without exacerbation; patient to be seen by physical therapy and social work for possible home health care. Objective - Vital Signs Vital signs: Vital Signs Temp 97.1 F L 02/17/21 07:39 Pulse 72 02/17/21 11:28 Resp 18 02/17/21 07:39 BP 171/83 02/17/21 07:39 Pulse Ox 99 02/17/21 07:39 Intake & Output 02/16/21 02/17/21 02/17/21 18:59 06:59 18:59 Intake Total 30 100 829 Output Total 750 Balance -720 100 829 Weight 36.287 kg Intake: Intake, IV Titration 30 100 Amount Heparin Sod,Pork in 0.45% 30 NaCl 25,000 unit In 0.45 % NaCl 1 250ml.bag @ 12 UNITS/KG/HR 4.354 mls/hr IV .Q24H MISSY Rx#: [id number] Magnesium Sulfate-D5w Pmx 100 1 gm In Dextrose/Water 1 100ml.bag @ 100 mls/hr IVPB Q1H MISSY Rx#: [id number] Oral 829 Output: Urine 750 Other: Voiding Method Bedside Commode Bedside Commode # Voids 1 1 - Constitutional General appearance: Present: cooperative, no acute distress - EENT Eyes: Present: EOMI, PERRLA, normal appearance ENT: Present: hard of hearing Ears: bilateral: normal - Neck Neck: Present: normal ROM Thyroid: bilateral: normal size - Respiratory Respiratory: bilateral: diminished (Anterior and posterior lung baca) - Cardiovascular Details: Sinus rhythm with ST depression V5 and V6 Heart rate: 84 Rhythm: regular Heart sounds: normal: S1, S2 Abnormal Heart Sounds: Present: systolic murmur - Peripheral pulses radial pulse Peripheral Pulses: bilateral: Normal dorsalis pedis Peripheral Pulses: bilateral: Normal - Gastrointestinal General gastrointestinal: Present: normal bowel sounds, soft - Integumentary Integumentary: Present: decreased turgor, pale - Neurologic Neurologic: Present: CNII-XII intact - Musculoskeletal Musculoskeletal: Present: generalized weakness - Psychiatric Psychiatric: Present: A&O x's 3 - Allied health notes Allied health notes reviewed: nursing - Labs CBC & Chem 7: 02/17/21 04:47 02/17/21 04:47 Labs: Abnormal Lab Results - Last 24 Hours (Table) 02/16/21 02/16/21 02/17/21 Range/Units 17:32 20:28 02:45 WBC (4.50-10.00) X 10*3/uL RBC (4.10-5.20) X 10*6/uL Hgb (12.0-15.0) g/dL Hct (37.2-46.3) % Neutrophils # (1.80-7.70) X 10*3/uL Monocytes # (0.20-1.00) X 10*3/uL Eosinophils # (0.04-0.35) X 10*3/uL BUN/Creatinine Ratio (12.00-20.00) Ratio Glucose (70-110) mg/dL POC Glucose (mg/dL) 154 H 209 H 181 H (75-99) mg/dL 02/17/21 02/17/21 02/17/21 Range/Units 04:47 04:47 07:26 WBC 10.73 H (4.50-10.00) X 10*3/uL RBC 3.74 L (4.10-5.20) X 10*6/uL Hgb 11.2 L (12.0-15.0) g/dL Hct 34.9 L (37.2-46.3) % Neutrophils # 9.54 H (1.80-7.70) X 10*3/uL Monocytes # 0.16 L (0.20-1.00) X 10*3/uL Eosinophils # 0 L (0.04-0.35) X 10*3/uL BUN/Creatinine Ratio 31.67 H (12.00-20.00) Ratio Glucose 135 H (70-110) mg/dL POC Glucose (mg/dL) 122 H (75-99) mg/dL 02/17/21 Range/Units 11:56 WBC (4.50-10.00) X 10*3/uL RBC (4.10-5.20) X 10*6/uL Hgb (12.0-15.0) g/dL Hct (37.2-46.3) % Neutrophils # (1.80-7.70) X 10*3/uL Monocytes # (0.20-1.00) X 10*3/uL Eosinophils # (0.04-0.35) X 10*3/uL BUN/Creatinine Ratio (12.00-20.00) Ratio Glucose (70-110) mg/dL POC Glucose (mg/dL) 133 H (75-99) mg/dL Assessment and Plan Assessment: Near syncopal episode Paroxysmal atrial fibrillation New ST depression on EKG leads V5 and V6 Hypertension Dyslipidemia COPD with intermittent use of oxygen History of bladder CA History of melanoma under left arm Anxiety Depression Nicotine dependence Memory impairment Orthopedic surgeries Full code Plan: Near syncopal episode, possibly related to cardiovascular event, acute changes a 12-lead EKG with ST depression in V5 and V6; recommendations for maximizing medical treatment see cardiology dictation Hypertension, continue antihypertensives to control blood pressure less than 150/90 COPD, conversion for corticosteroids to by mouth and continue [id number] breathing treatments Continue to monitor vital signs and diagnostic testing Continue home medications Further recommendations to come based on clinical condition Hopeful discharge within 24 hours Time with Patient: Greater than 30
[2021-02-17 14:42] VITALS: RESP 16
[2021-02-17] MEDS: predniSONE 20 MG TAB PO SCH (20:40)
[2021-02-17] MEDS: ATORVASTATIN 40 MG TAB PO SCH (20:40)
[2021-02-17 21:21] LABS: Glucose,Whole Blood 143 mg/dL (75-99)
[2021-02-18] MEDS: PANTOPRAZOLE 40 MG TABLET PO SCH (06:56)
[2021-02-18] MEDS: LEVOTHYROXINE 75 MCG TAB PO SCH (06:56)
[2021-02-18] MEDS: INSULIN ASPART (NovoLOG) 100 UNIT/ML VIAL SQ SCH ×2 (06:57→13:44)
[2021-02-18 06:59] LABS: Glucose,Whole Blood 121 mg/dL (75-99)
[2021-02-18 07:56] LABS: African American GFR (CKD) >90 (>60 ml/min/1.73 sqM); Anion Gap 6 mmol/L; Blood Urea Nitrogen 28 mg/dL (7-17); Calcium 9.3 mg/dL (8.4-10.2); Carbon Dioxide 28 mmol/L (22-30); Chloride 103 mmol/L (98-107); Glucose 118 mg/dL (74-99); Non-African American GFR(CKD) 82 (>60 ml/min/1.73 sqM); Potassium 4.4 mmol/L (3.5-5.1); Sodium 137 mmol/L (137-145)
[2021-02-18 08:11] LABS: Basophils % (A) 0 %; Eosinophils % (A) 0 %; HCT 33.2 % (34.0-46.0); HGB 10.8 gm/dL (11.4-16.0); Lymphocytes % (A) 6 %; MCH 30.4 pg (25.0-35.0); MCHC 32.4 g/dL (31.0-37.0); MCV 93.8 fL (80.0-100.0); Mean Platelet Volume 8.1; Monocytes # (A) 0.6 k/uL (0-1.0); Monocytes % (A) 3 %; Neutrophils # (A) 14.9 k/uL (1.3-7.7); Neutrophils % (A) 90 %; Platelet Count 201 k/uL (150-450); RBC 3.55 m/uL (3.80-5.40); RDW 14.5 % (11.5-15.5); WBC 16.5 k/uL (3.8-10.6)
[2021-02-18] MEDS: ISOSORBIDE MONONITRATE ER 30 MG TAB.ER.24H PO SCH (08:38)
[2021-02-18] MEDS: predniSONE 20 MG TAB PO SCH (08:38)
[2021-02-18] MEDS: LOSARTAN 25 MG TAB PO SCH (08:38)
[2021-02-18] MEDS: APIXABAN 2.5 MG TABLET PO SCH (08:38)
[2021-02-18] MEDS: LORATADINE 10 MG TAB PO SCH (08:39)
[2021-02-18] MEDS: METOPROLOL TARTRATE 25 MG TAB PO SCH (08:39)
--- NOTE | 2021-02-18 08:41 | XR ---
EXAMINATION TYPE: XR chest 1V portable DATE OF EXAM: 02/18/2021 COMPARISON: Chest x-ray 02/15/2021, chest CT 03/07/2018 HISTORY: Shortness of breath TECHNIQUE: Single frontal view of the chest is obtained. FINDINGS: There is a pectus deformity present. Aorta is dense and ectatic. There are overlying leads . Postop change noted to the right shoulder. No evident pneumothorax or pleural effusion. Nodular den sity in the left lower lobe is again seen and is dense. Cardiac mediastinal silhouette shows a simila r appearance. There are interstitial changes within the lungs. Prominent lung volumes consistent with underlying COPD. IMPRESSION: No acute process. There is underlying emphysema. Old granulomatous disease.
[2021-02-18] MEDS: IPRATROPIUM 0.5 MG/2.5 ML NEBU INHALATION SCH ×2 (08:58→13:00)
[2021-02-18] MEDS: FORMOTEROL FUMARATE 20 MCG/2 ML NEBU INHALATION SCH (08:58)
[2021-02-18 10:08] VITALS: BP 174/76; PULSE 74; TEMP 97.6
[2021-02-18 11:38] LABS: Glucose,Whole Blood 122 mg/dL (75-99)
[2021-02-18] MEDS ORDERED: QUEtiapine 25 MG TAB PO PRN (13:37)
--- NOTE | 2021-02-18 14:48 | P.DS ---
Providers Date of admission: 02/16/21 14:45 Expected date of discharge: 02/18/21 Attending physician: Ebenezer Caldwell Consults: 02/15/21 16:19 Consult Physician Urgent Consulting Provider: Ted Colby Consult Reason/Comments: unstable angina Do you want consulting provider notified?: Yes Primary care physician: Ebenezer Caldwell Hospital Course: Final diagnosis Near syncopal episode Paroxysmal atrial fibrillation New ST depression on EKG leads V5 and V6 Hypertension Dyslipidemia COPD with intermittent use of oxygen History of bladder CA History of melanoma under left arm Anxiety Depression Nicotine dependence Memory impairment Orthopedic surgeries Full code Discharge disposition Patient is being discharged in a stable condition with guarded prognosis to [facility] for continued PT/OT therapy. Patient will follow-up with Dr. Caldwell in the outpatient setting upon discharge. Patient instructed to follow-up with cardiology outpatient. Total time taken is greater than 35 minutes. Hospital course Near-syncopal episode Twelve-lead EKG changes ST depression in V5 and V6 COPD without exacerbation 85-year-old female with significant medical history of paroxysmal atrial fibrillation, COPD with intermittent use of oxygen, hyperlipidemia, hypertension, hypothyroidism, history of bladder cancer treated with instillation, melanoma removed under left arm, anxiety, depression, memory impairment is admitted to the hospital for chest discomfort associated with near syncopal episode. She states she got up this a.m., was very weak at the side of the bed was unable to stand, and needed to lay down on the bed due to severe dizziness, nausea, and shortness of breath. She states, "episodes have been occurring frequent over the last 2 week duration, but not to this intensity." Patient had extensive diagnostic workup in the emergency department, chest x-ray shows new cardiomegaly; 12-lead EKG has ST depressions in leads V5 and V6; diagnostic labs unremarkable. Patient is initiated on a heparin drip per ACS protocol. Cardiology consulted for rule out an acute cardiac event. 02/16/2021 Patient seen and examined at bedside. Patient resting comfortably in bed, she denies fever, chills, shortness of breath, chest pain, palpitations, nausea, vomiting abdominal pain or diarrhea at this time. Review diagnostic testing and vital signs. Spoke with cardiology regarding treatment plan obtain echocardiogram, aggressive medical treatment of syncopal episode with associated ST depression in V5 and V6. 02/17/2021 Patient seen and examined at bedside. Patient resting comfortably in bed. Patient endorses mild shortness of breath and generalized weakness. Patient denies fever, chills, chest pain, palpitations, abdominal pain nausea or vomiting. Patient has been seen by cardiology for expert opinion and treatment plan, we'll continue with cardiac medications per cardiology. Patient will be switched to oral corticosteroids for COPD without exacerbation; patient to be seen by physical therapy and social work for possible home health care. 02/18/2021 Patient is seen and evaluated this morning continues to be weak and had physical therapy evaluate the patient and recommending subacute rehab for continued PT/OT therapy for some strength and mobility. Cardiology has evaluated the patient recommending maximizing medical management and follow-up closely in the outpatient setting with cardiology. Patient was agreeable to rehab and has been accepted to [facility] on the [place]. Currently no reports of chest pain, shortness of breath, or palpitations. Patient is afebrile. No reports of nausea or vomiting and patient is tolerating diet. Patient will be going to [facility] on the [place] today. Gen: This is a 85-year-old female awake, alert and oriented 2-3. Thin built HEENT: Head is atraumatic, normocephalic. Pupils equal, round. Sclerae is anicteric. NECK: Supple. No JVD. No lymphadenopathy. No thyromegaly. LUNGS: Diminished breath sounds bilaterally with no wheezing or rhonchi noted. No intercostal retractions. HEART: S1, S2 are muffled ABDOMEN: Soft. Bowel sounds are present. No masses. No tenderness. EXTREMITIES: No pedal edema. No calf tenderness. NEUROLOGICAL: Patient is awake, alert and oriented x2-3. Diffusely weak. Please refer to medication reconciliation sheet for a list of medications. Patient Condition at Discharge: Fair Plan - Discharge Summary Discharge Rx Participant: No New Discharge Prescriptions: New Losartan [Cozaar] 25 mg PO DAILY 30 Days #30 tab Ipratropium Nebulized [Atrovent Nebulized 0.2 MG/ML] 0.5 mg INHALATION RT-QID ml predniSONE 10 mg PO DIRECTED #30 tab Isosorbide Mononitrate ER [Imdur] 30 mg PO DAILY 30 Days #30 tablet Nitroglycerin Sl Tabs [Nitrostat] 0.4 mg SUBLINGUAL Q5M PRN tab PRN Reason: Chest Pain INSULIN ASPART (NovoLOG) [NovoLOG (formulary)] 0 unit SQ ACHS ml Pantoprazole [Protonix] 40 mg PO AC-BRKFST tab QUEtiapine [SEROquel] 12.5 mg PO HS PRN tab PRN Reason: Agitation Acetaminophen Tab [Tylenol] 650 mg PO Q6HR PRN tab PRN Reason: Fever And/ Or Pain Continue Levothyroxine Sodium [Synthroid] 75 mcg PO DAILY Apixaban [Eliquis] 2.5 mg PO BID #60 tablet Atorvastatin [Lipitor] 40 mg PO HS #30 tab Levocetirizine Dihydrochloride [Xyzal] 5 mg PO DAILY Albuterol Sulfate [Ventolin HFA] 2 puff INHALATION RT-QID PRN PRN Reason: Shortness Of Breath Metoprolol Tartrate [Lopressor] 25 mg PO BID Umeclidinium Brm/Vilanterol Tr [Anoro Ellipta 62.5-25 Mcg INH] 1 puff INHALATION RT-DAILY Lactulose 10 gm PO DAILY PRN PRN Reason: Constipation Discharge Medication List Levothyroxine Sodium [Synthroid] 75 mcg PO DAILY 12/11/18 [History] Apixaban [Eliquis] 2.5 mg PO BID #60 tablet 12/13/18 [Rx] Atorvastatin [Lipitor] 40 mg PO HS #30 tab 12/13/18 [Rx] Albuterol Sulfate [Ventolin HFA] 2 puff INHALATION RT-QID PRN 05/19/19 [History] Levocetirizine Dihydrochloride [Xyzal] 5 mg PO DAILY 05/19/19 [History] Metoprolol Tartrate [Lopressor] 25 mg PO BID 05/19/19 [History] Lactulose 10 gm PO DAILY PRN 02/15/21 [History] Umeclidinium Brm/Vilanterol Tr [Anoro Ellipta 62.5-25 Mcg INH] 1 puff INHALATION RT-DAILY 02/15/21 [History] Isosorbide Mononitrate ER [Imdur] 30 mg PO DAILY 30 Days #30 tablet 02/17/21 [Rx] Losartan [Cozaar] 25 mg PO DAILY 30 Days #30 tab 02/17/21 [Rx] Acetaminophen Tab [Tylenol] 650 mg PO Q6HR PRN tab 02/18/21 [Rx] INSULIN ASPART (NovoLOG) [NovoLOG (formulary)] 0 unit SQ ACHS ml 02/18/21 [Rx] Ipratropium Nebulized [Atrovent Nebulized 0.2 MG/ML] 0.5 mg INHALATION RT-QID ml 02/18/21 [Rx] Nitroglycerin Sl Tabs [Nitrostat] 0.4 mg SUBLINGUAL Q5M PRN tab 02/18/21 [Rx] Pantoprazole [Protonix] 40 mg PO AC-BRKFST tab 02/18/21 [Rx] QUEtiapine [SEROquel] 12.5 mg PO HS PRN tab 02/18/21 [Rx] predniSONE 10 mg PO DIRECTED #30 tab 02/18/21 [Rx] Follow up Appointment(s)/Referral(s): Ebenezer Caldwell MD [Primary Care Provider] - 1-2 days Candelaria Pal MD [STAFF PHYSICIAN] - 1 Week Activity/Diet/Wound Care/Special Instructions: [facility] [address] Activity as tolerated Continue heart healthy dysphasia 3 chopped diet Continue with ensure and live 3 times a day with meals strawberry Follow-up with cardiology outpatient Follow-up with primary care outpatient Continue to monitor Accu-Cheks before meals and at bedtime and treat accordingly with sliding scale NovoLog sliding scale 0-150 equals 0 units 151-200 equals 2 units 201-250 equals 4 units 251-300 equals 6 units 301-350 equals 8 units 351-400 equals 10 units Please notify provider if blood sugar is 400 or above Discharge Disposition: TRANSFER TO SNF/ECF
[2021-02-18 16:42] LABS: Glucose,Whole Blood 131 mg/dL (75-99)
== END 2021-02-18 16:45 | DRG 312 ==
LOC: EC 13:18 → 6NMEDSUR 16:26 → OBSVTOIN 02-16 14:45 → 3SCARD 02-17 16:19
PROVIDERS: ADMIT Family Medicine; ATTEND Family Medicine
DX: R55 Syncope and collapse (principal); I20.0 Unstable angina; I48.0 Paroxysmal atrial fibrillation; J44.9 Chronic obstructive pulmonary disease, unspecified; E03.9 Hypothyroidism, unspecified; Z20.822 Contact with and (suspected) exposure to COVID-19; I10 Essential (primary) hypertension; I27.20 Pulmonary hypertension, unspecified; I08.3 Combined rheumatic disorders of mitral, aortic and tricuspid valves; E78.5 Hyperlipidemia, unspecified; F17.210 Nicotine dependence, cigarettes, uncomplicated; F32.9 Major depressive disorder, single episode, unspecified; F41.9 Anxiety disorder, unspecified; Z79.01 Long term (current) use of anticoagulants; Z79.890 Hormone replacement therapy; Z79.899 Other long term (current) drug therapy; Z85.51 Personal history of malignant neoplasm of bladder; Z85.820 Personal history of malignant melanoma of skin; Z90.710 Acquired absence of both cervix and uterus; Z88.1 Allergy status to other antibiotic agents; Z88.5 Allergy status to narcotic agent; Z88.2 Allergy status to sulfonamides; Z91.013 Allergy to seafood; Z98.42 Cataract extraction status, left eye; Z98.41 Cataract extraction status, right eye
CPT/HCPCS: 36415; 71045; 71046; 80048; 80053; 80061; 81003; 83605; 83735; 83880; 84443; 84484; 85025; 85610; 85730; 87635; 93005; 93306; 94640; 94760; 96361; 96374; 99285

== ENCOUNTER 2021-03-01 17:18 | Inpatient (IN) | payer MEDICARE, BC ==
[2021-03-01] MEDS ORDERED: SODIUM CHLORIDE 0.9% 500 ML 500 ML IV ONE (17:57)
--- NOTE | 2021-03-01 18:04 | ED ---
General Adult HPI - General Chief complaint: Altered Mental Status Stated complaint: AMS Time Seen by Provider: 03/01/21 17:46 Source: patient, EMS, RN notes reviewed, old records reviewed Mode of arrival: EMS Limitations: no limitations - History of Present Illness Initial comments: 85-year-old female presenting with altered mental status. The patient is able to give some details but is not exactly sure why she is in the emergency department. Apparently she had been sent in by her primary care physician for evaluation of worsening confusion history of metabolic encephalopathy. The patient believes it is 1961. She has no pain complaints. There is no family available at the time my initial evaluation. - Related Data Home Medications Medication Instructions Recorded Confirmed Levothyroxine Sodium [Synthroid] 75 mcg PO DAILY 12/11/18 02/15/21 Albuterol Sulfate [Ventolin HFA] 2 puff INHALATION RT-QID PRN 05/19/19 02/15/21 Levocetirizine Dihydrochloride 5 mg PO DAILY 05/19/19 02/15/21 [Xyzal] Metoprolol Tartrate [Lopressor] 25 mg PO BID 05/19/19 02/15/21 Lactulose 10 gm PO DAILY PRN 02/15/21 02/15/21 Umeclidinium Brm/Vilanterol Tr 1 puff INHALATION RT-DAILY 02/15/21 02/15/21 [Anoro Ellipta 62.5-25 Mcg INH] Previous Rx's Medication Instructions Recorded Apixaban [Eliquis] 2.5 mg PO BID #60 tablet 12/13/18 Atorvastatin [Lipitor] 40 mg PO HS #30 tab 12/13/18 Isosorbide Mononitrate ER [Imdur] 30 mg PO DAILY 30 Days #30 tablet 02/17/21 Losartan [Cozaar] 25 mg PO DAILY 30 Days #30 tab 02/17/21 Acetaminophen Tab [Tylenol] 650 mg PO Q6HR PRN tab 02/18/21 INSULIN ASPART (NovoLOG) [NovoLOG 0 unit SQ ACHS ml 02/18/21 (formulary)] Ipratropium Nebulized [Atrovent 0.5 mg INHALATION RT-QID ml 02/18/21 Nebulized 0.2 MG/ML] Nitroglycerin Sl Tabs [Nitrostat] 0.4 mg SUBLINGUAL Q5M PRN tab 02/18/21 Pantoprazole [Protonix] 40 mg PO AC-BRKFST tab 02/18/21 QUEtiapine [SEROquel] 12.5 mg PO HS PRN tab 02/18/21 predniSONE 10 mg PO DIRECTED #30 tab 02/18/21 Allergies Allergy/AdvReac Type Severity Reaction Status Date / Time azithromycin Allergy Unknown Verified 03/01/21 17:34 codeine Allergy Unknown Verified 03/01/21 17:34 mussels Allergy Unknown Verified 03/01/21 17:34 Sulfa (Sulfonamide Allergy Unknown Verified 03/01/21 17:34 Antibiotics) Review of Systems ROS Statement: Those systems with pertinent positive or pertinent negative responses have been documented in the HPI. ROS Other: All systems not noted in ROS Statement are negative. 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 History of Any Multi-Drug Resistant Organisms: None Reported Past Surgical History: Adenoidectomy, Back Surgery, Bladder Surgery, Breast Surgery, Hysterectomy, Orthopedic Surgery, Tonsillectomy Additional Past Surgical History / Comment(s): R knee arthroscopic surgery, lumbar laminectomy, R rotator cuff repair, D&C, total hysterectomy, L arm melanoma excised, cystoscopy for instillation to burn bladder holder d/t bladder cancer, R breast benign bx, bilateral cataract removals, bilateral vein stripping, colonoscopy Past Anesthesia/Blood Transfusion Reactions: Postoperative Nausea & Vomiting (PONV) Additional Past Anesthesia/Blood Transfusion Reaction / Comment(s): Pt has received blood in past without reaction. Past Psychological History: Anxiety, Depression Smoking Status: Current every day smoker Past Alcohol Use History: None Reported Past Drug Use History: None Reported - Past Family History Mother Family Medical History: Cancer, Pneumonia, Respiratory Disorder Additional Family Medical History / Comment(s): TB, uterine cancer. Father Family Medical History: No Reported History Additional Family Medical History / Comment(s): Father was healthy. General Exam Limitations: no limitations General appearance: alert, in no apparent distress Head exam: Present: atraumatic, normocephalic Eye exam: Present: normal appearance, PERRL ENT exam: Present: mucous membranes dry Neck exam: Present: normal inspection. Absent: tenderness, meningismus Respiratory exam: Present: normal lung sounds bilaterally. Absent: respiratory distress, wheezes Cardiovascular Exam: Present: regular rate, normal rhythm GI/Abdominal exam: Present: soft. Absent: distended, tenderness, guarding Extremities exam: Present: normal inspection, normal capillary refill. Absent: pedal edema Neurological exam: Present: alert. Absent: oriented X3, motor sensory deficit Psychiatric exam: Present: normal affect, normal mood Skin exam: Present: warm, dry, intact. Absent: cyanosis, diaphoretic Course Vital Signs 03/01/21 03/01/21 03/01/21 17:27 19:25 20:33 Temperature 97.9 F Pulse Rate 64 63 72 Respiratory 18 20 Rate Blood Pressure 115/57 133/60 133/60 O2 Sat by Pulse 95 97 96 Oximetry Medical Decision Making - Medical Decision Making 85-year-old female presents with worsening confusion, hallucination. Patient's symptoms apparently have been present for the past 2 weeks. I was able to discuss the case with Florian whittington for Dr. Ebenezer Caldwell. Workup is initiated in the emergency department including chest x-ray, head CT laboratory testing. The only significant lab abnormalities sodium of 120 7H is new for this patient. She has a stable leukocytosis, stable hemoglobin, normal urinalysis, negative head CT, negative chest x-ray. She will be admitted to Dr. Ebenezer Caldwell, Florian Patricio is aware. - Lab Data Result diagrams: 03/01/21 18:11 03/01/21 18:11 Lab Results 03/01/21 03/01/21 03/01/21 Range/Units 18:11 18:11 18:11 WBC 11.0 H (3.8-10.6) k/uL RBC 3.43 L (3.80-5.40) m/uL Hgb 10.4 L (11.4-16.0) gm/dL Hct 31.6 L (34.0-46.0) % MCV 92.3 D (80.0-100.0) fL MCH 30.5 (25.0-35.0) pg MCHC 33.0 (31.0-37.0) g/dL RDW 14.4 (11.5-15.5) % Plt Count 240 (150-450) k/uL MPV 7.9 Neutrophils % 88 % Lymphocytes % 8 % Monocytes % 3 % Eosinophils % 0 % Basophils % 0 % Neutrophils # 9.6 H (1.3-7.7) k/uL Lymphocytes # 0.9 L (1.0-4.8) k/uL Monocytes # 0.3 (0-1.0) k/uL Eosinophils # 0.0 (0-0.7) k/uL Basophils # 0.0 (0-0.2) k/uL PT 10.5 (9.0-12.0) sec INR 1.0 (<1.2) APTT 19.9 L (22.0-30.0) sec Sodium 127 L (137-145) mmol/L Potassium 4.2 (3.5-5.1) mmol/L Chloride 96 L (98-107) mmol/L Carbon Dioxide 26 (22-30) mmol/L Anion Gap 5 mmol/L BUN 25 H (7-17) mg/dL Creatinine 0.66 (0.52-1.04) mg/dL Est GFR (CKD-EPI)AfAm >90 (>60 ml/min/1.73 sqM) Est GFR (CKD-EPI)NonAf 81 (>60 ml/min/1.73 sqM) Glucose 119 H (74-99) mg/dL Calcium 8.8 (8.4-10.2) mg/dL Total Bilirubin 0.7 (0.2-1.3) mg/dL AST 30 (14-36) U/L ALT 27 (4-34) U/L Alkaline Phosphatase 54 (38-126) U/L Total Protein 5.6 L (6.3-8.2) g/dL Albumin 3.3 L (3.5-5.0) g/dL Urine Color Urine Appearance (Clear) Urine pH (5.0-8.0) Ur Specific [place] (1.001-1.035) Urine Protein (Negative) Urine Glucose (UA) (Negative) Urine Ketones (Negative) Urine Blood (Negative) Urine Nitrite (Negative) Urine Bilirubin (Negative) Urine Urobilinogen (<2.0) mg/dL Ur Leukocyte Esterase (Negative) Urine Opiates Screen (NotDetected) Ur Oxycodone Screen (NotDetected) Urine Methadone Screen (NotDetected) Ur Propoxyphene Screen (NotDetected) Ur Barbiturates Screen (NotDetected) U Tricyclic Antidepress (NotDetected) Ur Phencyclidine Scrn (NotDetected) Ur Amphetamines Screen (NotDetected) U Methamphetamines Scrn (NotDetected) U Benzodiazepines Scrn (NotDetected) Urine Cocaine Screen (NotDetected) U Marijuana (THC) Screen (NotDetected) 03/01/21 Range/Units 20:30 WBC (3.8-10.6) k/uL RBC (3.80-5.40) m/uL Hgb (11.4-16.0) gm/dL Hct (34.0-46.0) % MCV (80.0-100.0) fL MCH (25.0-35.0) pg MCHC (31.0-37.0) g/dL RDW (11.5-15.5) % Plt Count (150-450) k/uL MPV Neutrophils % % Lymphocytes % % Monocytes % % Eosinophils % % Basophils % % Neutrophils # (1.3-7.7) k/uL Lymphocytes # (1.0-4.8) k/uL Monocytes # (0-1.0) k/uL Eosinophils # (0-0.7) k/uL Basophils # (0-0.2) k/uL PT (9.0-12.0) sec INR (<1.2) APTT (22.0-30.0) sec Sodium (137-145) mmol/L Potassium (3.5-5.1) mmol/L Chloride (98-107) mmol/L Carbon Dioxide (22-30) mmol/L Anion Gap mmol/L BUN (7-17) mg/dL Creatinine (0.52-1.04) mg/dL Est GFR (CKD-EPI)AfAm (>60 ml/min/1.73 sqM) Est GFR (CKD-EPI)NonAf (>60 ml/min/1.73 sqM) Glucose (74-99) mg/dL Calcium (8.4-10.2) mg/dL Total Bilirubin (0.2-1.3) mg/dL AST (14-36) U/L ALT (4-34) U/L Alkaline Phosphatase (38-126) U/L Total Protein (6.3-8.2) g/dL Albumin (3.5-5.0) g/dL Urine Color Light Yellow Urine Appearance Clear (Clear) Urine pH 6.5 (5.0-8.0) Ur Specific [place] 1.009 (1.001-1.035) Urine Protein Negative (Negative) Urine Glucose (UA) Negative (Negative) Urine Ketones Negative (Negative) Urine Blood Negative (Negative) Urine Nitrite Negative (Negative) Urine Bilirubin Negative (Negative) Urine Urobilinogen <2.0 (<2.0) mg/dL Ur Leukocyte Esterase Negative (Negative) Urine Opiates Screen Not Detected (NotDetected) Ur Oxycodone Screen Not Detected (NotDetected) Urine Methadone Screen Not Detected (NotDetected) Ur Propoxyphene Screen Not Detected (NotDetected) Ur Barbiturates Screen Not Detected (NotDetected) U Tricyclic Antidepress Not Detected (NotDetected) Ur Phencyclidine Scrn Not Detected (NotDetected) Ur Amphetamines Screen Not Detected (NotDetected) U Methamphetamines Scrn Not Detected (NotDetected) U Benzodiazepines Scrn Not Detected (NotDetected) Urine Cocaine Screen Not Detected (NotDetected) U Marijuana (THC) Screen Not Detected (NotDetected) Disposition Clinical Impression: Altered mental status, Hyponatremia Disposition: ADMITTED IP TO THIS [facility] Condition: Stable Is patient prescribed a controlled substance at d/c from ED?: No Referrals: Ebenezer Caldwell MD [Primary Care Provider] - 1-2 days Decision to Admit Reason: Admit from EC Decision Date: 03/01/21 Decision Time: 21:14
[2021-03-01 18:30] LABS: Basophils % (A) 0 %; Eosinophils % (A) 0 %; HCT 31.6 % (34.0-46.0); HGB 10.4 gm/dL (11.4-16.0); Lymphocytes # (A) 0.9 k/uL (1.0-4.8); Lymphocytes % (A) 8 %; MCH 30.5 pg (25.0-35.0); Mean Platelet Volume 7.9; Monocytes # (A) 0.3 k/uL (0-1.0); Monocytes % (A) 3 %; Neutrophils # (A) 9.6 k/uL (1.3-7.7); Neutrophils % (A) 88 %; Platelet Count 240 k/uL (150-450); RBC 3.43 m/uL (3.80-5.40); RDW 14.4 % (11.5-15.5)
[2021-03-01 18:31] LABS: ALT 27 U/L (4-34); AST 30 U/L (14-36); African American GFR (CKD) >90 (>60 ml/min/1.73 sqM); Albumin 3.3 g/dL (3.5-5.0); Alkaline Phosphatase 54 U/L (38-126); Anion Gap 5 mmol/L; Blood Urea Nitrogen 25 mg/dL (7-17); Calcium 8.8 mg/dL (8.4-10.2); Carbon Dioxide 26 mmol/L (22-30); Chloride 96 mmol/L (98-107); Glucose 119 mg/dL (74-99); MCV 92.3 fL (80.0-100.0); Non-African American GFR(CKD) 81 (>60 ml/min/1.73 sqM); Potassium 4.2 mmol/L (3.5-5.1); Sodium 127 mmol/L (137-145); Total Bilirubin 0.7 mg/dL (0.2-1.3); Total Protein 5.6 g/dL (6.3-8.2)
[2021-03-01 18:43] LABS: Prothrombin Time 10.5 sec (9.0-12.0)
[2021-03-01 18:44] LABS: Partial Thromboplastin Time 19.9 sec (22.0-30.0)
--- NOTE | 2021-03-01 19:01 | XR ---
EXAMINATION TYPE: XR chest 1V portable DATE OF EXAM: 03/01/2021 COMPARISON: Chest radiograph 02/18/2021 HISTORY: Status. TECHNIQUE: Single frontal view of the chest is obtained. FINDINGS: Heart and mediastinal silhouette and pulmonary vasculature are within normal limits. The l ungs are hyperinflated. No consolidation effusion or pneumothorax. Opacity over the left lower hemith orax favored to represent nipple, similar to prior. Electronic device projecting over the patient's left hemithorax. Right proximal humerus anchors. IMPRESSION: Emphysematous lungs without an acute process.
[2021-03-01 20:36] LABS: Appearance,Urine Clear (Clear); Bilirubin,Urine Negative (Negative); Blood,Urine Negative (Negative); Color,Urine Light Yellow; Glucose,Urine (UA) Negative (Negative); Ketones,Urine Negative (Negative); Leukocyte Esterase,Urine Negative (Negative); Nitrite,Urine Negative (Negative); PH, Urine 6.5 (5.0-8.0); Protein,Urine Negative (Negative); Specific Gravity,Urine 1.009 (1.001-1.035); Urobilinogen,Urine <2.0 mg/dL (<2.0)
[2021-03-01 20:47] LABS: Amphetamine Screen,Urine Not Detected (NotDetected); Barbiturate Screen,Urine Not Detected (NotDetected); Benzodiazepines Screen,Urine Not Detected (NotDetected); Cocaine Screen,Urine Not Detected (NotDetected); Methadone Screen, Urine Not Detected (NotDetected); Opiate Screen,Urine Not Detected (NotDetected); Oxycodone Screen, Urine Not Detected (NotDetected); Phencyclidine Screen,Urine Not Detected (NotDetected); Tricyclic Antidepressant,Urine Not Detected (NotDetected); Urn Cannabinoid Scrn Not Detected (NotDetected)
--- NOTE | 2021-03-01 20:52 | CT ---
EXAMINATION TYPE: CT brain wo con DATE OF EXAM: 03/01/2021 COMPARISON: Brain 10/19/2020 HISTORY: ams CT DLP: 1107.4 mGycm Automated exposure control for dose reduction was used. FINDINGS: No acute intracranial hemorrhage, large vessel territory infarct, mass, mass effect or midline shift. No hydrocephalus or extra-axial fluid collection. The hernandez-white distinction is maintained. The suba rachnoid basal cisterns and cerebral sulci are not effaced. There is hypodensity of the periventricul ar and subcortical white matter. No suspicious osseous lesions. The paranasal sinuses that are visual ized and the air cells are well-developed and pneumatized. IMPRESSION: SENESCENT CHANGES WITHOUT AN ACUTE INTRACRANIAL PROCESS.
[2021-03-01] MEDS ORDERED: ACETAMINOPHEN TAB 325 MG TAB PO PRN (21:10)
[2021-03-01] MEDS ORDERED: NALOXONE 0.4 MG/ML 1 ML VIAL IV PRN (21:10)
[2021-03-02] MEDS: SODIUM CHLORIDE 0.9% 1,000 ML IV SCH ×2 (00:17→10:36)
[2021-03-02 05:26] LABS: Basophils % (A) 0 %; Eosinophils # (A) 0.1 k/uL (0-0.7); Eosinophils % (A) 1 %; HCT 32.2 % (34.0-46.0); HGB 10.4 gm/dL (11.4-16.0); Lymphocytes % (A) 21 %; MCH 29.6 pg (25.0-35.0); MCHC 32.4 g/dL (31.0-37.0); MCV 91.3 fL (80.0-100.0); Mean Platelet Volume 7.3; Monocytes # (A) 0.6 k/uL (0-1.0); Monocytes % (A) 6 %; Neutrophils # (A) 6.4 k/uL (1.3-7.7); Neutrophils % (A) 70 %; Platelet Count 263 k/uL (150-450); RBC 3.52 m/uL (3.80-5.40); RDW 14.8 % (11.5-15.5); WBC 9.2 k/uL (3.8-10.6)
[2021-03-02 05:39] LABS: ALT 24 U/L (4-34); AST 28 U/L (14-36); African American GFR (CKD) >90 (>60 ml/min/1.73 sqM); Albumin 3.1 g/dL (3.5-5.0); Albumin/Globulin Ratio 1.3; Alkaline Phosphatase 55 U/L (38-126); Anion Gap 4 mmol/L; Blood Urea Nitrogen 20 mg/dL (7-17); Calcium 8.9 mg/dL (8.4-10.2); Carbon Dioxide 27 mmol/L (22-30); Chloride 102 mmol/L (98-107); Globulin 2.4 g/dL; Glucose 85 mg/dL (74-99); Magnesium 1.8 mg/dL (1.6-2.3); Non-African American GFR(CKD) 80 (>60 ml/min/1.73 sqM); Potassium 4.1 mmol/L (3.5-5.1); Sodium 133 mmol/L (137-145); Total Protein 5.5 g/dL (6.3-8.2)
[2021-03-02 05:57] LABS: T4, Free (Free Thyroxine) 0.96 ng/dL (0.78-2.19)
[2021-03-02] MEDS ORDERED: QUEtiapine 25 MG TAB PO PRN (06:17)
[2021-03-02] MEDS ORDERED: ALBUTEROL NEBULIZED 2.5 MG/3 ML INHALATION PRN (06:17)
[2021-03-02] MEDS ORDERED: Magnesium Replacement Protocol 1 EACH MISC MISCELLANE PRN (06:17)
[2021-03-02] MEDS ORDERED: NITROGLYCERIN SL TABS 0.4 MG TAB SUBLINGUAL PRN (06:17)
[2021-03-02] MEDS ORDERED: IPRATROPIUM 0.5 MG/2.5 ML NEBU INHALATION PRN (06:17)
[2021-03-02] MEDS: MAGNESIUM SULFATE-D5W PMX 1 GM in DEXTROSE/WATER 1 100ML.BAG IVPB SCH ×2 (06:55→10:35)
[2021-03-02] MEDS: LEVOTHYROXINE 75 MCG TAB PO SCH (06:57)
[2021-03-02] MEDS: ASPIRIN 81 MG PO SCH (10:35)
[2021-03-02] MEDS: PANTOPRAZOLE 40 MG TABLET PO SCH (10:35)
[2021-03-02] MEDS: METOPROLOL TARTRATE 25 MG TAB PO SCH ×2 (10:35→21:56)
[2021-03-02] MEDS: LORATADINE 10 MG TAB PO SCH (10:35)
[2021-03-02] MEDS: ISOSORBIDE MONONITRATE ER 30 MG TAB.ER.24H PO SCH (10:35)
[2021-03-02] MEDS: APIXABAN 2.5 MG TABLET PO SCH ×2 (10:35→21:55)
[2021-03-02] MEDS: LOSARTAN 25 MG TAB PO SCH (10:36)
[2021-03-02] MEDS: SYMBICORT 80-4.5 MCG INHALER INHALATION SCH ×2 (11:02→20:14)
[2021-03-02] MEDS: IPRATROPIUM 0.5 MG/2.5 ML NEBU INHALATION SCH ×4 (11:02→20:15)
--- NOTE | 2021-03-02 12:55 | P.CNNES ---
History of Present Illness Consult date: 03/02/21 Requesting physician: Florian Patricio Reason for Consult: Altered mental status History of Present Illness: Patient is a 85-year-old female who came to the hospital by ambulance yesterday at 5:15 PM. As per EMS flow sheet, when they arrive, patient was being helped up by family. Family mentioned that she has been taken to Hospital multiple times in the last 2 weeks. She'll get confused and then becomes altered. Her blood pressure at the scene was 119/54, pulse rate 63, respiration 10, saturation 95% and temperature 98.6. Blood sugar was 146. CT head showed age- related changes without acute ischemic process. Chest x-ray revealed emphysematous lungs without acute process. Patient had a recent MRI of the br ain and internal auditory canal with and without contrast on 10/19/2020, knee she did by ENT specialist Dr. Harp for dizziness, hearing loss and memory loss. It revealed age-related atrophy and chronic small vessel ischemia. Patient had a recent 2-D echo on 02/16/2021 which revealed normal left- ventricular size. Moderate concentric LVH. EF is between 55-60%. Left atrial size is normal. Blood test shows WBC 11.0 hemoglobin 10.4, platelets are normal to 40. PT/PTT normal. Sodium 127, potassium 4.2, BUN 25, creatinine 0.66. Her repeat sodium is 133 today. Hepatic panel normal. Vitamin B12 and folate are pending. TSH normal 3.91. Free T4 is normal 0.96. UA is negative urine drug screen negative, coronavirus PCR negative. Patient states that she has been having episodes since last 1 year, especially in the last 6 months in which she develops breathing difficulty. She states that she may have a good night sleep, gets up in the morning and then fiddles around in her jamas and robe. All of a sudden she gets feeling in her chest that something like breathing too fast, or too shallow. She starts panting. She feels like she cannot get enough air. Her heart rate goes real fast with some palpitations (with some breaks in between). With this spell, she feels weakness in the legs, as if she will collapse. Therefore she sits down. Patient also notices dizziness with spell, which she describes as lightheadedness, no vertigo. She usually sits down and it passes in around 6 minutes. Sometimes it may last longer. However she does not feel well rested the day and "quits" all usually lays down rest of the day. Some weeks she has several episodes and for next 2 months she may have none. She does admit to having anxiety problem. 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 Patient denies any loss of consciousness with this spell. She is not violent. Her family has noticed that she is just very upset that we she expresses herself. She denies being disoriented with this spell. She knows where she is at. With one of the spell, patient states that her daughter was telling her that she was babbling, not making sense. She lives with her , has 4 children, who are grown up and . Review of Systems As above in detail. Denies any neck pain, back pain. Denies any abdominal pain nausea vomiting diarrhea. No fever or chills. No blurred vision, loss of vision. She does have mild to moderate hearing loss. Denies any double vision, no hoarseness, sore throat, dysphagia. No pain anywhere else otherwise. 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 History of Any Multi-Drug Resistant Organisms: None Reported Past Surgical History: Adenoidectomy, Back Surgery, Bladder Surgery, Breast Surgery, Hysterectomy, Orthopedic Surgery, Tonsillectomy Additional Past Surgical History / Comment(s): R knee arthroscopic surgery, lumbar laminectomy, R rotator cuff repair, D&C, total hysterectomy, L arm melanoma excised, cystoscopy for instillation to burn bladder holder d/t bladder cancer, R breast benign bx, bilateral cataract removals, bilateral vein stripping, colonoscopy Past Anesthesia/Blood Transfusion Reactions: Postoperative Nausea & Vomiting (PONV) Additional Past Anesthesia/Blood Transfusion Reaction / Comment(s): Pt has received blood in past without reaction. Past Psychological History: Anxiety, Depression Smoking Status: Current every day smoker Past Alcohol Use History: None Reported Past Drug Use History: None Reported - Past Family History Mother Family Medical History: Cancer, Pneumonia, Respiratory Disorder Additional Family Medical History / Comment(s): TB, uterine cancer. Father Family Medical History: No Reported History Additional Family Medical History / Comment(s): Father was healthy. Medications and Allergies Home Medications Medication Instructions Recorded Confirmed Type Levothyroxine Sodium [Synthroid] 75 mcg PO DAILY 12/11/18 03/01/21 History Apixaban [Eliquis] 2.5 mg PO BID #60 tablet 12/13/18 03/01/21 Rx Atorvastatin [Lipitor] 40 mg PO HS #30 tab 12/13/18 03/01/21 Rx Albuterol Sulfate [Ventolin HFA] 2 puff INHALATION RT-QID PRN 05/19/19 03/01/21 History Levocetirizine Dihydrochloride 5 mg PO DAILY 05/19/19 03/01/21 History [Xyzal] Metoprolol Tartrate [Lopressor] 25 mg PO BID 05/19/19 03/01/21 History Lactulose 10 gm PO DAILY PRN 02/15/21 03/01/21 History Umeclidinium Brm/Vilanterol Tr 1 puff INHALATION RT-DAILY 02/15/21 03/01/21 History [Anoro Ellipta 62.5-25 Mcg INH] Isosorbide Mononitrate ER [Imdur] 30 mg PO DAILY 30 Days #30 tablet 02/17/21 03/01/21 Rx Losartan [Cozaar] 25 mg PO DAILY 30 Days #30 tab 02/17/21 03/01/21 Rx Acetaminophen Tab [Tylenol] 650 mg PO Q6HR PRN tab 02/18/21 03/01/21 Rx Nitroglycerin Sl Tabs [Nitrostat] 0.4 mg SUBLINGUAL Q5M PRN tab 02/18/21 03/01/21 Rx QUEtiapine [SEROquel] 12.5 mg PO HS PRN tab 02/18/21 03/01/21 Rx Aspirin 81 mg PO DAILY 03/01/21 03/01/21 History INSULIN LISPRO (humaLOG) [humaLOG] See Protocol PO DIRECTED 03/01/21 03/01/21 History Ipratropium Nebulized [Atrovent 0.5 mg INHALATION RT-QID PRN 03/01/21 03/01/21 History Nebulized 0.2 MG/ML] Omeprazole 20 mg PO DAILY 03/01/21 03/01/21 History Sertraline [Zoloft] 25 mg PO HS 03/01/21 03/01/21 History predniSONE See Taper PO DAILY 03/01/21 03/01/21 History Allergies Allergy/AdvReac Type Severity Reaction Status Date / Time azithromycin Allergy Unknown Verified 03/01/21 23:24 codeine Allergy Unknown Verified 03/01/21 23:24 mussels Allergy Unknown Verified 03/01/21 23:24 Sulfa (Sulfonamide Allergy Unknown Verified 03/01/21 23:24 Antibiotics) Physical Examination - Vital Signs Vital Signs: Vital Signs Temp Pulse Resp BP Pulse Ox 03/02/21 07:23 97.7 F 71 18 154/65 97 03/02/21 06:00 98.0 F 62 18 182/73 97 03/02/21 04:30 56 L 18 97 03/02/21 03:30 59 L 18 98 03/02/21 02:22 59 L 16 141/69 03/01/21 22:34 66 20 146/78 95 03/01/21 21:26 60 18 141/68 03/01/21 20:33 72 133/60 96 03/01/21 19:25 63 20 133/60 97 03/01/21 17:27 97.9 F 64 18 115/57 95 Intake and Output 03/01/21 03/02/21 03/02/21 22:59 06:59 14:59 Other: Weight 40.823 kg Patient is an elderly female, very pleasant, in no acute distress. Patient is alert awake oriented to time place and person. Patient knows that it is February 2021 and fall season. She knows it is [facility] in [facility] and name of the current president. Speech and language functions are normal. Attention, concentration and fund of knowledge is adequate. On cranial examination, pupils are round and reacting to light, visual baca are full on confrontation, extraocular muscles are intact with no nystagmus. Face is symmetric, tongue protrudes to the midline. Palatal elevation and sensation normal, hearing is mild to moderately decreased and shoulder shrug normal, facial sensation normal. Shoulder shrug normal. Otologic examination revealed normal appearing eardrums. No excessive cerumen. On muscle strength testing, there is no pronator drift and the strength is normal in arms and legs distally and proximally. Deep tendon reflexes are symmetric, 1 at the brachioradialis, 2 at the biceps, 2 at the knees And 1+ to 2 at the ankles and plantars downgoing bilaterally. Sensory to touch is equal with no neglect. Cerebellar function showed no ataxia for [id number] testing. No dysdiadochokinesia. Tone and bulk of muscles normal. Gait deferred. On general examination, there is mild left carotid bruit or murmur. S1-S2 a udible, no obvious murmur. Abdomen is soft nontender. Chest is clear. Peripheral pulses are present. No edema. Results - Laboratory Findings CBC and BMP: 03/02/21 05:01 03/02/21 05:01 Abnormal Lab Findings: Abnormal Labs 03/01/21 03/01/21 03/01/21 18:11 18:11 18:11 WBC 11.0 H RBC 3.43 L Hgb 10.4 L Hct 31.6 L Neutrophils # 9.6 H Lymphocytes # 0.9 L APTT 19.9 L Sodium 127 L Chloride 96 L BUN 25 H Glucose 119 H Total Protein 5.6 L Albumin 3.3 L Free T3 pg/mL 03/02/21 03/02/21 05:01 05:01 WBC RBC 3.52 L Hgb 10.4 L Hct 32.2 L Neutrophils # Lymphocytes # APTT Sodium 133 L Chloride BUN 20 H Glucose Total Protein 5.5 L Albumin 3.1 L Free T3 pg/mL 1.2 L Assessment and Plan Assessment: * Episodes of difficulty breathing (fast, shallow, with panting), and associated with dizziness and palpitations lasting for 5-6 minutes, sometimes longer. Patient does have anxiety issues. Rule out panic disorder, versus seizure disorder. Rule out other pulmonary causes. * History of atrial fibrillation * COPD * Hypertension * Hyperlipidemia Plan: * We will check EEG to rule out any epileptiform activity. * Carotid Doppler * 2-D echo on 02/16/2021 which revealed normal left-ventricular size. Moderate concentric LVH. EF is between 55-60%. Left atrial size is normal. * Continue Eliquis 2.5 mg twice a day, aspirin 81 mg and Lipitor. * We will obtain collateral history from patient's family members. * Agree with checking B12, folate. Thyroid function tests are normal. * Continue telemetry monitoring. Neurology will follow. * Thank you for the consult.
--- NOTE | 2021-03-02 14:40 | EEG ---
ELECTROENCEPHALOGRAM REPORT DATE OF SERVICE: 03/02/2021 PREAMBLE: This is an 85-year-old female with episodes of difficulty breathing, palpitations, and sometimes associated with speech difficulty. Rule out seizures versus TIA. EEG FINDINGS: This is a 21 channel digital EEG recording utilizing video component and referential and bipolar montage. Background consists of well-developed, moderately well regulated, mixed frequencies of 8-9 hertz alpha, with 6-7 hertz theta activity seen in bihemispheric region. Background seems to be minimally reactive to eye opening and closing. Photic driving response was seen with some flash frequencies. Hyperventilation was not done. Different stages of sleep were not seen. No focal or generalized epileptiform activity was seen. IMPRESSION: This is an abnormal EEG due to background slowing of mild degree. This can be seen with encephalopathy of metabolic, vascular or degenerative causes. No epileptiform activity was seen. MMODL / IJN: [id number] /
--- NOTE | 2021-03-02 19:30 | P.HPIM ---
History of Present Illness H&P Date: 03/02/21 Chief Complaint: Altered mental status 85-year-old female with significant medical history of paroxysmal atrial fibrillation, COPD with intermittent use of oxygen, hyperlipidemia, hypertension, hypothyroidism, history of bladder cancer treated with instillation, melanoma removed under left arm, anxiety, depression, memory impairment is admitted to the hospital for for acute on chronic altered mental status. She states over the last few weeks she has been noticing shades and shadows throughout the house, and unable to recall events that of taken place throughout the days. Patient had extensive diagnostic workup in the emergency department revealing hyponatremia with a sodium of 127. CBC within normal limits for patient's baseline. Chest x-ray emphysema lungs without acute changes. CT of the head without contrast, no acute changes noted. Consultation with neurology for altered mental status and memory impairment. Acute on chronic hyponatremia ordered additional labs. Will continue normal saline at 75 ML's an hour. Review of Systems Constitutional: Reports malaise, Reports poor appetite, Reports weakness, Reports weight loss Ears, nose, mouth and throat: Reports headache Cardiovascular: Reports decreased exercise tolerance, Reports dyspnea on exertion, Reports shortness of breath Respiratory: Reports dyspnea Gastrointestinal: Reports nausea Genitourinary: Reports as per HPI Menstruation: Reports as per HPI Musculoskeletal: Reports muscle cramps, Reports muscle weakness Integumentary: Reports as per HPI Neurological: Reports balance difficulties, Reports change in mentation, Reports confusion, Reports hearing difficulties, Reports lack of coordination, Reports memory loss, Reports tingling, Reports weakness Psychiatric: Reports anxiety Endocrine: Reports fatigue Hematologic/Lymphatic: Reports as per HPI Allergic/Immunologic: Reports as per HPI Past Medical History Past Medical History: Atrial Fibrillation, Cancer, COPD, Hyperlipidemia, Hypertension, Thyroid Disorder Additional Past Medical History / Comment(s): Brugada syndrome, Afib RVR, bladder CA treated with instillation, melanoma removed under L arm with surgery, past home oxygen use but not currently, hypothyroid, 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 History of Any Multi-Drug Resistant Organisms: None Reported Past Surgical History: Adenoidectomy, Back Surgery, Bladder Surgery, Breast Surgery, Hysterectomy, Orthopedic Surgery, Tonsillectomy Additional Past Surgical History / Comment(s): R knee arthroscopic surgery, lumbar laminectomy, R rotator cuff repair, D&C, total hysterectomy, L arm melanoma excised, cystoscopy for instillation to burn bladder holder d/t bladder cancer, R breast benign bx, bilateral cataract removals, bilateral vein stripping, colonoscopy Past Anesthesia/Blood Transfusion Reactions: Postoperative Nausea & Vomiting (PONV) Additional Past Anesthesia/Blood Transfusion Reaction / Comment(s): Pt has received blood in past without reaction. 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 Pt uses no assistive device. She drives. Smoking Status: Former smoker Past Alcohol Use History: None Reported Additional Past Alcohol Use History / Comment(s): Pt started smoking in 1956 and quit in 2016. Past Drug Use History: None Reported - Past Family History Mother Family Medical History: Cancer, Pneumonia, Respiratory Disorder Additional Family Medical History / Comment(s): TB, uterine cancer. Father Family Medical History: No Reported History Additional Family Medical History / Comment(s): Father was healthy. Medications and Allergies Home Medications and Allergies Comment(s): Medications and ALLERGIES reviewed Home Medications Medication Instructions Recorded Confirmed Type Levothyroxine Sodium [Synthroid] 75 mcg PO DAILY 12/11/18 03/01/21 History Apixaban [Eliquis] 2.5 mg PO BID #60 tablet 12/13/18 03/01/21 Rx Atorvastatin [Lipitor] 40 mg PO HS #30 tab 12/13/18 03/01/21 Rx Albuterol Sulfate [Ventolin HFA] 2 puff INHALATION RT-QID PRN 05/19/19 03/01/21 History Levocetirizine Dihydrochloride 5 mg PO DAILY 05/19/19 03/01/21 History [Xyzal] Metoprolol Tartrate [Lopressor] 25 mg PO BID 05/19/19 03/01/21 History Lactulose 10 gm PO DAILY PRN 02/15/21 03/01/21 History Umeclidinium Brm/Vilanterol Tr 1 puff INHALATION RT-DAILY 02/15/21 03/01/21 History [Anoro Ellipta 62.5-25 Mcg INH] Isosorbide Mononitrate ER [Imdur] 30 mg PO DAILY 30 Days #30 tablet 02/17/21 03/01/21 Rx Losartan [Cozaar] 25 mg PO DAILY 30 Days #30 tab 02/17/21 03/01/21 Rx Acetaminophen Tab [Tylenol] 650 mg PO Q6HR PRN tab 02/18/21 03/01/21 Rx Nitroglycerin Sl Tabs [Nitrostat] 0.4 mg SUBLINGUAL Q5M PRN tab 02/18/21 03/01/21 Rx QUEtiapine [SEROquel] 12.5 mg PO HS PRN tab 02/18/21 03/01/21 Rx Aspirin 81 mg PO DAILY 03/01/21 03/01/21 History INSULIN LISPRO (humaLOG) [humaLOG] See Protocol PO DIRECTED 03/01/21 03/01/21 History Ipratropium Nebulized [Atrovent 0.5 mg INHALATION RT-QID PRN 03/01/21 03/01/21 History Nebulized 0.2 MG/ML] Omeprazole 20 mg PO DAILY 03/01/21 03/01/21 History Sertraline [Zoloft] 25 mg PO HS 03/01/21 03/01/21 History predniSONE See Taper PO DAILY 03/01/21 03/01/21 History Allergies Allergy/AdvReac Type Severity Reaction Status Date / Time azithromycin Allergy Unknown Verified 03/01/21 23:24 codeine Allergy Unknown Verified 03/01/21 23:24 mussels Allergy Unknown Verified 03/01/21 23:24 Sulfa (Sulfonamide Allergy Unknown Verified 03/01/21 23:24 Antibiotics) Physical Exam Vitals: Vital Signs Temp Pulse Pulse Pulse Pulse Pulse Resp 03/02/21 18:02 97.9 F 63 17 03/02/21 16:00 64 03/02/21 15:50 60 03/02/21 15:33 72 18 03/02/21 15:31 63 18 03/02/21 15:29 60 18 03/02/21 07:23 97.7 F 71 18 03/02/21 06:00 98.0 F 62 18 03/02/21 04:30 56 L 18 03/02/21 03:30 59 L 18 03/02/21 02:22 59 L 16 03/01/21 22:34 66 20 03/01/21 21:26 60 18 03/01/21 20:33 72 03/01/21 19:25 63 20 BP BP BP BP Pulse Ox 03/02/21 18:02 183/65 92 L 03/02/21 16:00 03/02/21 15:50 03/02/21 15:33 135/61 97 03/02/21 15:31 166/67 97 03/02/21 15:29 171/76 97 03/02/21 07:23 154/65 97 03/02/21 06:00 182/73 97 03/02/21 04:30 97 03/02/21 03:30 98 03/02/21 02:22 141/69 03/01/21 22:34 146/78 95 03/01/21 21:26 141/68 03/01/21 20:33 133/60 96 03/01/21 19:25 133/60 97 Intake and Output 03/02/21 03/02/21 03/02/21 06:59 14:59 22:59 Intake Total 75 Output Total 825 Balance -750 Intake: Intake, IV Titration 75 Amount Sodium Chloride 0.9% 1, 75 000 ml @ 75 mls/hr IV . [id number] [facility] Rx#:[id number] Output: Urine 825 Straight 825 Other: Weight 40.597 kg - Constitutional General appearance: cooperative, mild distress, thin - EENT Eyes: EOMI, PERRLA Ears: bilateral: normal - Neck Neck: normal ROM Carotids: bilateral: upstroke normal Thyroid: bilateral: normal size - Respiratory Respiratory: bilateral: wheezing (Anterior and posterior lung baca) - Cardiovascular Heart rate: 74 Rhythm: regular Heart sounds: normal: S1, S2 radial pulse Peripheral Pulses: bilateral: Normal dorsalis pedis Peripheral Pulses: bilateral: Normal - Gastrointestinal General gastrointestinal: normal bowel sounds - Integumentary Integumentary: decreased turgor, pale - Neurologic Neurologic: CNII-XII intact - Musculoskeletal Musculoskeletal: generalized weakness - Psychiatric Alert to person and place disorientated to situation and time Results CBC & Chem 7: 03/02/21 05:01 03/02/21 05:01 Labs: Abnormal Lab Results - Last 24 Hours (Table) 03/02/21 03/02/21 Range/Units 05:01 05:01 RBC 3.52 L (3.80-5.40) m/uL Hgb 10.4 L (11.4-16.0) gm/dL Hct 32.2 L (34.0-46.0) % Sodium 133 L (137-145) mmol/L BUN 20 H (7-17) mg/dL Total Protein 5.5 L (6.3-8.2) g/dL Albumin 3.1 L (3.5-5.0) g/dL Free T3 pg/mL 1.2 L (2.8-5.3) pg/ml Chest x-ray: report reviewed CT Scan - head: report reviewed Thrombosis Risk Factor Assmnt - Choose All That Apply Any of the Below Risk Factors Present?: No Other Risk Factors: Yes Each Risk Factor Represents 3 Points: Age 75 years or older Other congenital or acquired thrombophilia - If yes, enter type in comment: No Thrombosis Risk Factor Assessment Total Risk Factor Score: 3 Thrombosis Risk Factor Assessment Level: Moderate Risk Assessment and Plan Assessment: Acute on chronic hyponatremia Possible metabolic encephalopathy, multifactorial Paroxysmal atrial fibrillation Hypertension Dyslipidemia COPD with intermittent use of oxygen History of bladder CA History of melanoma under left arm Anxiety Depression Nicotine dependence Memory impairment Orthopedic surgeries Full code Plan: Acute on chronic hyponatremia, normal saline at 75 ML's an hour, continue to watch for signs and symptoms of hyponatremia; additional labs ordered for hyponatremia Possible metabolic encephalopathy, multifactorial, consultation with neurology for recommendations and treatment plan COPD without exacerbation, continue maintenance inhalers and breathing treatments as needed Continue home medications Continue to monitor vital signs and diagnostic testing Further recommendations come based on patient's clinical condition Time with Patient: Greater than 30
[2021-03-02 19:34] LABS: % Iron Saturation 19.36 (12.00-45.00); Ferritin 31.1 ng/mL (10.0-291.0); Iron 78 ug/dL (50-170); Total Iron Binding Capacity 402 ug/dL (228-460)
[2021-03-02 21:25] LABS: Folate, Serum >20.00 ng/mL (4.40-31.00)
[2021-03-02] MEDS: ATORVASTATIN 40 MG TAB PO SCH (21:55)
[2021-03-02] MEDS: SERTRALINE 25 MG TAB PO SCH (21:55)
[2021-03-03] MEDS: SODIUM CHLORIDE 0.9% 1,000 ML IV SCH ×2 (03:44→17:25)
[2021-03-03 04:22] LABS: Basophils # (A) 0.1 k/uL (0-0.2); Basophils % (A) 1 %; Eosinophils # (A) 0.3 k/uL (0-0.7); Eosinophils % (A) 3 %; HCT 35.5 % (34.0-46.0); HGB 11.4 gm/dL (11.4-16.0); Lymphocytes # (A) 2.2 k/uL (1.0-4.8); Lymphocytes % (A) 22 %; MCH 30.7 pg (25.0-35.0); MCHC 32.1 g/dL (31.0-37.0); MCV 95.8 fL (80.0-100.0); Mean Platelet Volume 7.6; Monocytes # (A) 0.6 k/uL (0-1.0); Monocytes % (A) 6 %; Neutrophils # (A) 6.6 k/uL (1.3-7.7); Neutrophils % (A) 67 %; Platelet Count 237 k/uL (150-450); RDW 14.5 % (11.5-15.5); WBC 9.9 k/uL (3.8-10.6)
[2021-03-03 04:47] LABS: ALT 23 U/L (4-34); AST 31 U/L (14-36); African American GFR (CKD) >90 (>60 ml/min/1.73 sqM); Albumin 3.4 g/dL (3.5-5.0); Albumin/Globulin Ratio 1.4; Alkaline Phosphatase 54 U/L (38-126); Anion Gap 6 mmol/L; Blood Urea Nitrogen 15 mg/dL (7-17); Calcium 8.5 mg/dL (8.4-10.2); Carbon Dioxide 26 mmol/L (22-30); Chloride 100 mmol/L (98-107); Globulin 2.4 g/dL; Glucose 92 mg/dL (74-99); Magnesium 1.9 mg/dL (1.6-2.3); Non-African American GFR(CKD) 81 (>60 ml/min/1.73 sqM); Potassium 3.7 mmol/L (3.5-5.1); Sodium 132 mmol/L (137-145); Total Bilirubin 0.8 mg/dL (0.2-1.3); Total Protein 5.8 g/dL (6.3-8.2)
[2021-03-03] MEDS: LEVOTHYROXINE 75 MCG TAB PO SCH (05:51)
[2021-03-03] MEDS: IPRATROPIUM 0.5 MG/2.5 ML NEBU INHALATION SCH ×4 (07:54→20:51)
[2021-03-03] MEDS: SYMBICORT 80-4.5 MCG INHALER INHALATION SCH ×2 (07:54→20:51)
[2021-03-03] MEDS: PANTOPRAZOLE 40 MG TABLET PO SCH (08:45)
[2021-03-03] MEDS: APIXABAN 2.5 MG TABLET PO SCH ×2 (08:45→21:37)
[2021-03-03] MEDS: ISOSORBIDE MONONITRATE ER 30 MG TAB.ER.24H PO SCH (08:45)
[2021-03-03] MEDS: LORATADINE 10 MG TAB PO SCH (08:45)
[2021-03-03] MEDS: ASPIRIN 81 MG PO SCH (08:45)
[2021-03-03] MEDS: METOPROLOL TARTRATE 25 MG TAB PO SCH ×2 (08:45→21:37)
[2021-03-03] MEDS: LOSARTAN 25 MG TAB PO SCH (08:46)
[2021-03-03] MEDS ORDERED: CAFFEINE CITRATE 60 MG/3 ML VIAL IV PRN (11:29)
[2021-03-03] MEDS ORDERED: AMINOPHYLLINE 500 MG/20 ML VIAL IV PRN (11:29)
--- NOTE | 2021-03-03 11:31 | P.CRDCN ---
History of Present Illness History of present illness: HISTORY OF PRESENTING ILLNESS This is a pleasant 85-year-old female past medical history significant for paroxysmal atrial fibrillation on eliquis, hypertension, dyslipidemia, form er nicotine dependence and melanoma. She follows in the office with Dr. Pal. We have been asked to see in consultation for dizziness and palpitations. She states she sitting down and upon standing she started to feel a tightness in her throat associated with difficulty taking a deep breath. Then she states her legs start to feel weak and she has to tiwari to a chair so she can sit before she pass es out. While this is going on she also feels her heart beating rapidly and irregularly. These symptoms always occur with activity, not at rest. She had a similar type episode and was admitted to the hospital February 16. At that time an echocardiogram revealed preserved LV systolic function with ejection fraction 55-60%, mild MR and mild TR. She also had some EKG changes at that time which were opted to be treated medically with aspirin and nitrate. The patient is also concerned about issues with memory loss recently. She states she doesn't always remember things from day to day and his been feeling more confused lately. Orthostatic vital signs obtained are unremarkable. She has been seen in consultation by neurology who recommends an EEG and carotid Dopplers. They are ruling out panic disorder versus seizures. DIAGNOSTICS EKG reveals SR with no acute ST or T-wave abnormalities. Telemetry tracings indicate SR. Chest xray emphysematous lungs with no acute process. Laboratory reviewed, on admission white count was 11 repeat today 9.9, hemoglobin 11.4, platelets 237, sodium 132, potassium 3.7, creatinine 0.65, magnesium 1.9 and TSH 3.9. Current cardiac medications include aspirin 81 mg daily, Lopressor 25 mg twice a day, losartan 25 mg daily, Imdur 30 mg daily, atorvastatin 40 mg daily and Eliquis 2.5 mg twice a day. REVIEW OF SYSTEMS At the time of my exam: CONSTITUTIONAL: Denies fever or chills. CARDIOVASCULAR: Denies chest pain, shortness of breath, orthopnea, PND or palpitations. RESPIRATORY: Denies cough. GASTROINTESTINAL: Denies abdominal pain, diarrhea, constipation, nausea or vomiting. MUSCULOSKELETAL: Denies myalgias. NEUROLOGIC: Denies numbness, tingling, headache or weakness. ENDOCRINE: Denies fatigue, weight change, polydipsia or polyurina. GENITOURINARY: Denies burning, hematuria or urgency with micturation. HEMATOLOGIC: Denies history of anemia or bleeding. PHYSICAL EXAMINATION Blood pressure 176/68 heart rate 83 afebrile and maintaining oxygen saturation on room air. CONSTITUTIONAL: No apparent distress. Frail. HEENT: Head is normocephalic. Pupils are equal, round. Sclerae anicteric. Mucous membranes of the mouth are moist. No JVD. No carotid bruit. CHEST EXAMINATION: Lungs are clear to auscultation. No chest wall tenderness is noted on palpation or with deep breathing. HEART EXAMINATION: Regular rate and rhythm. S1, S2 heard. No murmurs, gallops or rub. ABDOMEN: Soft, nontender. EXTREMITIES: 2+ peripheral pulses, no lower extremity edema and no calf tenderness. NEUROLOGIC EXAMINATION: Patient is awake, alert and oriented x3. ASSESSMENT Dizziness and palpitations Near syncope Paroxysmal atrial fibrillation on eliquis, currently in SR Hypertension Dyslipidemia Confusion Former nicotine dependence PLAN Ongoing telemetry monitoring. Increase activity as tolerated. NPO after midnight tonight for stress test in the morning. Thank you kindly for this consultation. Nurse Practitioner note has been reviewed, I agree with a documented findings and plan of care. Patient was seen and examined. 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 History of Any Multi-Drug Resistant Organisms: None Reported Past Surgical History: Adenoidectomy, Back Surgery, Bladder Surgery, Breast Surgery, Hysterectomy, Orthopedic Surgery, Tonsillectomy Additional Past Surgical History / Comment(s): R knee arthroscopic surgery, lumbar laminectomy, R rotator cuff repair, D&C, total hysterectomy, L arm tasha anoma excised, cystoscopy for instillation to burn bladder holder d/t bladder cancer, R breast benign bx, bilateral cataract removals, bilateral vein stripping, colonoscopy Past Anesthesia/Blood Transfusion Reactions: Postoperative Nausea & Vomiting (PONV) Additional Past Anesthesia/Blood Transfusion Reaction / Comment(s): Pt has received blood in past without reaction. Past Psychological History: Anxiety, Depression Additional Psychological History / Comment(s): Pt resides [facility] her spouse [facility] she is caregiver. Pt uses no assistive device. She drives. Smoking Status: Former smoker Past Alcohol Use History: None Reported Additional Past Alcohol Use History / Comment(s): Pt started smoking in 1956 and quit in 2016. Past Drug Use History: None Reported - Past Family History Mother Family Medical History: Cancer, Pneumonia, Respiratory Disorder Additional Family Medical History / Comment(s): TB, uterine cancer. Father Family Medical History: No Reported History Additional Family Medical History / Comment(s): Father was healthy. Medications and Allergies Home Medications Medication Instructions Recorded Confirmed Type Levothyroxine Sodium [Synthroid] 75 mcg PO DAILY 12/11/18 03/01/21 History Apixaban [Eliquis] 2.5 mg PO BID #60 tablet 12/13/18 03/01/21 Rx Atorvastatin [Lipitor] 40 mg PO HS #30 tab 12/13/18 03/01/21 Rx Albuterol Sulfate [Ventolin HFA] 2 puff INHALATION RT-QID PRN 05/19/19 03/01/21 History Levocetirizine Dihydrochloride 5 mg PO DAILY 05/19/19 03/01/21 History [Xyzal] Metoprolol Tartrate [Lopressor] 25 mg PO BID 05/19/19 03/01/21 History Lactulose 10 gm PO DAILY PRN 02/15/21 03/01/21 History Umeclidinium Brm/Vilanterol Tr 1 puff INHALATION RT-DAILY 02/15/21 03/01/21 History [Anoro Ellipta 62.5-25 Mcg INH] Isosorbide Mononitrate ER [Imdur] 30 mg PO DAILY 30 Days #30 tablet 02/17/21 03/01/21 Rx Losartan [Cozaar] 25 mg PO DAILY 30 Days #30 tab 02/17/21 03/01/21 Rx Acetaminophen Tab [Tylenol] 650 mg PO Q6HR PRN tab 02/18/21 03/01/21 Rx Nitroglycerin Sl Tabs [Nitrostat] 0.4 mg SUBLINGUAL Q5M PRN tab 02/18/21 03/01/21 Rx QUEtiapine [SEROquel] 12.5 mg PO HS PRN tab 02/18/21 03/01/21 Rx Aspirin 81 mg PO DAILY 03/01/21 03/01/21 History INSULIN LISPRO (humaLOG) [humaLOG] See Protocol PO DIRECTED 03/01/21 03/01/21 History Ipratropium Nebulized [Atrovent 0.5 mg INHALATION RT-QID PRN 03/01/21 03/01/21 History Nebulized 0.2 MG/ML] Omeprazole 20 mg PO DAILY 03/01/21 03/01/21 History Sertraline [Zoloft] 25 mg PO HS 03/01/21 03/01/21 History predniSONE See Taper PO DAILY 03/01/21 03/01/21 History Allergies Allergy/AdvReac Type Severity Reaction Status Date / Time azithromycin Allergy Unknown Verified 03/01/21 23:24 codeine Allergy Unknown Verified 03/01/21 23:24 mussels Allergy Unknown Verified 03/01/21 23:24 Sulfa (Sulfonamide Allergy Unknown Verified 03/01/21 23:24 Antibiotics) Physical Exam Vitals: Vital Signs Temp Pulse Pulse Pulse Pulse Pulse Resp 03/03/21 08:47 83 03/03/21 04:50 98.1 F 68 16 03/02/21 20:00 98.9 F 66 16 03/02/21 18:02 97.9 F 63 17 03/02/21 16:00 64 03/02/21 15:50 60 03/02/21 15:33 72 18 03/02/21 15:31 63 18 03/02/21 15:29 60 18 BP BP BP Pulse Ox 03/03/21 08:47 176/68 03/03/21 04:50 149/76 154/64 164/61 98 03/02/21 20:00 162/66 95 03/02/21 18:02 183/65 92 L 03/02/21 16:00 03/02/21 15:50 03/02/21 15:33 135/61 97 03/02/21 15:31 166/67 97 03/02/21 15:29 171/76 97 Intake and Output 03/02/21 03/03/21 03/03/21 22:59 06:59 14:59 Intake Total 75 Output Total 825 Balance -750 Intake: Intake, IV Titration 75 Amount Sodium Chloride 0.9% 1, 75 000 ml @ 75 mls/hr IV . [id number] [facility] Rx#:[id number] Output: Urine 825 Straight 825 Other: # Voids 3 Weight 40.597 kg Results 03/03/21 03:49 03/03/21 03:49 Cardiac Enzymes 03/03/21 Range/Units 03:49 AST 31 (14-36) U/L CBC 03/03/21 Range/Units 03:49 WBC 9.9 (3.8-10.6) k/uL RBC 3.70 L (3.80-5.40) m/uL Hgb 11.4 (11.4-16.0) gm/dL Hct 35.5 (34.0-46.0) % Plt Count 237 (150-450) k/uL Comprehensive Metabolic Panel 03/03/21 Range/Units 03:49 Sodium 132 L (137-145) mmol/L Potassium 3.7 (3.5-5.1) mmol/L Chloride 100 (98-107) mmol/L Carbon Dioxide 26 (22-30) mmol/L BUN 15 (7-17) mg/dL Creatinine 0.65 (0.52-1.04) mg/dL Glucose 92 (74-99) mg/dL Calcium 8.5 (8.4-10.2) mg/dL AST 31 (14-36) U/L ALT 23 (4-34) U/L Alkaline Phosphatase 54 (38-126) U/L Total Protein 5.8 L (6.3-8.2) g/dL Albumin 3.4 L (3.5-5.0) g/dL Current Medications Generic Name Dose Route Start Last Admin Trade Name Freq PRN Reason Stop Dose Admin Acetaminophen 650 mg 03/02/21 06:17 Acetaminophen Tab 325 Mg Tab PO Q6HR PRN Fever and/ or Pain Albuterol Sulfate 2.5 mg 03/02/21 06:17 Albuterol Nebulized 2.5 Mg/3 Ml INHALATION RT-QID PRN Shortness Of Breath Apixaban 2.5 mg 03/02/21 09:00 03/03/21 08:45 Apixaban 2.5 Mg Tablet PO 2.5 mg BID [facility] Administration Protocol Aspirin 81 mg 03/02/21 09:00 03/03/21 08:45 Aspirin 81 Mg PO 81 mg DAILY [facility] Administration Atorvastatin Calcium 40 mg 03/02/21 21:00 03/02/21 21:55 Atorvastatin 40 Mg Tab PO 40 mg HS [facility] Administration Budesonide/Formoterol Fumarate 2 puff 03/02/21 08:00 03/03/21 07:54 Symbicort 80-4.5 Mcg Inhaler INHALATION Not Given RT-BID [facility] Sodium Chloride 1,000 mls @ 75 mls/hr 03/01/21 20:15 03/03/21 03:44 Saline 0.9% IV Not Given .[id number] [facility] Ipratropium [place] 0.5 mg 03/02/21 06:17 Ipratropium 0.5 Mg/2.5 Ml Nebu INHALATION RT-QID PRN Shortness Of Breath Ipratropium [place] 0.5 mg 03/02/21 08:00 03/03/21 07:54 Ipratropium 0.5 Mg/2.5 Ml Nebu INHALATION Not Given RT-QID [facility] Isosorbide Mononitrate 30 mg 03/02/21 09:00 03/03/21 08:45 Isosorbide Mononitrate Er 30 Mg Tab.Er.24h PO 30 mg DAILY [facility] Administration Levothyroxine Sodium 75 mcg 03/02/21 06:30 03/03/21 05:51 Levothyroxine 75 Mcg Tab PO 75 mcg DAILY@0630 [facility] Administration Loratadine 10 mg 03/02/21 09:00 03/03/21 08:45 Loratadine 10 Mg Tab PO 10 mg DAILY [facility] Administration Losartan Potassium 25 mg 03/02/21 09:00 03/03/21 08:46 Losartan 25 Mg Tab PO 25 mg DAILY [facility] Administration Metoprolol Tartrate 25 mg 03/02/21 09:00 03/03/21 08:45 Metoprolol Tartrate 25 Mg Tab PO 25 mg BID [facility] Administration Miscellaneous Information 1 each 03/02/21 06:17 Magnesium Replacement Protocol 1 Each Misc MISCELLANE DAILY PRN Per Protocol Protocol Naloxone HCl 0.2 mg 03/01/21 21:10 Naloxone 0.4 Mg/Ml 1 Ml Vial IV Q2M PRN Opioid Reversal Nitroglycerin 0.4 mg 03/02/21 06:17 Nitroglycerin Sl Tabs 0.4 Mg Tab SUBLINGUAL Q5M PRN Chest Pain Pantoprazole Sodium 40 mg 03/02/21 07:30 03/03/21 08:45 Pantoprazole 40 Mg Tablet PO 40 mg [id number] [facility] Administration Quetiapine Fumarate 12.5 mg 03/02/21 06:17 Quetiapine 25 Mg Tab PO HS PRN Agitation Sertraline HCl 25 mg 03/02/21 21:00 03/02/21 21:55 Sertraline 25 Mg Tab PO 25 mg HS [facility] Administration Intake and Output 03/02/21 03/03/21 03/03/21 22:59 06:59 14:59 Intake Total 75 Output Total 825 Balance -750 Intake: Intake, IV Titration 75 Amount Sodium Chloride 0.9% 1, 75 000 ml @ 75 mls/hr IV . [id number] [facility] Rx#:[id number] Output: Urine 825 Straight 825 Other: # Voids 3 Weight 40.597 kg 03/03/21 03:49 03/03/21 03:49
[2021-03-03 13:26] VITALS: BMI 15.3
[2021-03-03] MEDS: hydrALAZINE HCL 20 MG/ML 1 ML VIAL IVP PRN (16:28)
--- NOTE | 2021-03-03 20:34 | P.PN ---
Subjective Progress Note Date: 03/03/21 Principal diagnosis: Altered mental status Hyponatremia Metabolic encephalopathy, multifactorial 85-year-old female with significant medical history of paroxysmal atrial fibrillation, COPD with intermittent use of oxygen, hyperlipidemia, hypertension, hypothyroidism, history of bladder cancer treated with instillation, melanoma removed under left arm, anxiety, depression, memory impairment is admitted to the hospital for for acute on chronic altered mental status. She states over the last few weeks she has been noticing shades and shadows throughout the house, and unable to recall events that of taken place throughout the days. Patient had extensive diagnostic workup in the emergency department revealing hyponatremia with a sodium of 127. CBC within normal limits for patient's baseline. Chest x-ray emphysema lungs without acute changes. CT of the head without contrast, no acute changes noted. Consultation with neurology for altered mental status and memory impairment. Acute on chronic hyponatremia ordered additional labs. Will continue normal saline at 75 ML's an hour. 03/03/2021 Patient seen and examined at bedside. Patient resting comfortably in bed with no apparent acute signs of distress. She states her memory has improved during hospital stay. Patient able to answer questions appropriately with delayed response. Consultation with neurology for altered mental status, metabolic encephalopathy multifactorial, EEG was ordered and performed see dictation. Consultation with cardiology for intermittent dizziness, patient was recently admitted to the hospital with EKG changes in V5 and [address] depression, at that time patient opted for medical treatment. Patient denies fever, chills, shortness of breath, chest pain, palpitations, abdominal pain, nausea or vomiting at this time. Awaiting recommendations from cardiology and neurology. We'll continue to monitor electrolytes, sodium has increased to 132. Objective - Vital Signs Vital signs: Vital Signs Temp 97.7 F 03/03/21 20:01 Pulse 77 03/03/21 20:01 Resp 16 03/03/21 20:01 BP 162/73 03/03/21 20:01 Pulse Ox 94 L 03/03/21 20:01 Intake & Output 03/03/21 03/03/21 03/04/21 06:59 18:59 06:59 Intake Total 900 Balance 900 Weight 40.597 kg Intake: Intake, IV Titration 900 Amount Sodium Chloride 0.9% 1, 900 000 ml @ 75 mls/hr IV . [id number] [facility] Rx#:[id number] Other: Voiding Method Toilet Toilet # Voids 3 2 1 - Constitutional General appearance: Present: cooperative, thin - EENT Eyes: Present: EOMI, PERRLA ENT: Present: hard of hearing Ears: bilateral: normal - Neck Neck: Present: normal ROM Carotids: bilateral: upstroke normal Thyroid: bilateral: normal size - Respiratory Respiratory: bilateral: diminished (Anterior and posterior lung baca) - Cardiovascular Details: Normal sinus rhythm Heart rate: 74 Rhythm: regular Heart sounds: normal: S1, S2 - Peripheral pulses radial pulse Peripheral Pulses: bilateral: Normal dorsalis pedis Peripheral Pulses: bilateral: Normal - Gastrointestinal General gastrointestinal: Present: normal bowel sounds, soft - Integumentary Integumentary: Present: decreased turgor, pale - Neurologic Neurologic: Present: CNII-XII intact - Musculoskeletal Musculoskeletal: Present: generalized weakness - Psychiatric Psychiatric: Present: A&O x's 3 - Allied health notes Allied health notes reviewed: nursing - Labs CBC & Chem 7: 03/03/21 03:49 03/03/21 03:49 Labs: Abnormal Lab Results - Last 24 Hours (Table) 03/03/21 03/03/21 Range/Units 03:49 03:49 RBC 3.70 L (3.80-5.40) m/uL Sodium 132 L (137-145) mmol/L Total Protein 5.8 L (6.3-8.2) g/dL Albumin 3.4 L (3.5-5.0) g/dL Assessment and Plan Assessment: Acute on chronic hyponatremia Possible metabolic encephalopathy, multifactorial Paroxysmal atrial fibrillation Hypertension Dyslipidemia COPD with intermittent use of oxygen History of bladder CA History of melanoma under left arm Anxiety Depression Nicotine dependence Memory impairment Orthopedic surgeries Full code Plan: Acute on chronic hyponatremia, normal saline at 75 ML's an hour, continue to watch for signs and symptoms of hyponatremia; additional labs ordered for hyponatremia Possible metabolic encephalopathy, multifactorial, consultation with neurology for recommendations and treatment plan COPD without exacerbation, continue maintenance inhalers and breathing treatments as needed Continue home medications Continue to monitor vital signs and diagnostic testing Further recommendations come based on patient's clinical condition Time with Patient: Greater than 30
--- NOTE | 2021-03-03 21:14 | US ---
EXAMINATION TYPE: US carotid duplex BILAT DATE OF EXAM: 03/03/2021 COMPARISON: NONE CLINICAL HISTORY: ams, RULE OUT TIA. EXAM MEASUREMENTS: RIGHT: Peak Systolic Velocity (PSV) cm/sec ----- Right CCA: 92.9 ----- Right ICA: 78.0 ----- Right ECA: 275 ICA/CCA ratio: 0.8 RIGHT: End Diastole cm/sec ----- Right CCA: 13.6 ----- Right ICA: 16.9 ----- Right ECA: 0 LEFT: Peak Systolic Velocity (PSV) cm/sec ----- Left CCA: 85.3 ----- Left ICA: 70.4 ----- Left ECA: 263 ICA/CCA ratio: 0.8 LEFT: End Diastole cm/sec ----- Left CCA: 11.8 ----- Left ICA: 17.0 ----- Left ECA: 0 VERTEBRALS (direction of flow): Right Vertebral: Antegrade Left Vertebral: Antegrade Rhythm: Normal Minimal plaque visualized. Elevated velocities in right and left ECA. IMPRESSION: 1. Atheromatous plaquing present bilaterally without significant flow limiting stenosis within the co mmon or internal carotid arteries. 2. There is elevated velocities within the external carotid arteries bilaterally suggestive of modera te stenosis Criteria for Assigning % of Stenosis / Diameter reduction (Estimation based on the indirect measurements of the internal carotid artery velocities (ICA PSV). 1. Normal (no stenosis)=ICA PSV < 125 cm/s: ratio < 2.0: ICA EDV<40 cm/s. 2. Less than 50% stenosis=ICA PSV < 125 cm/s: ratio < 2.0: ICA EDV<40 cm/s. 3. 50 to 69% stenosis=ICA PSV of 125 to 230 cm/s: ration 2.0 ? 4.0: ICA EDV 40-100 cm/s. 4. Greater than 70% stenosis to near occlusion= ICA PSV > 230 cm/s: ratio > 4.0: ICA EDV > 100 cm/s. 5. Near occlusion= ICA PSV velocities may be low or undetectable: variable ratio and ICA EDV. 6. Total occlusion=unable to detect flow.
[2021-03-03] MEDS: SERTRALINE 25 MG TAB PO SCH (21:37)
[2021-03-03] MEDS: ATORVASTATIN 40 MG TAB PO SCH (21:37)
--- NOTE | 2021-03-04 00:37 | P.PN ---
Subjective Progress Note Date: 03/03/21 Patient was seen for a follow-up. Patient is doing better. Patient still gets short of breath, until she states that she calms down. Patient believes that she had some little infection in the left ear in May 2020, was seen by Dr. Harp. Patient states that since then she has been having issues, one after another. Telemetry monitoring showing sinus rhythm, sinus bradycardia in the 50s. Some PVCs and couplets. Objective - Vital Signs Vital signs: Vital Signs Temp 97.7 F 03/03/21 20:01 Pulse 77 03/03/21 20:01 Resp 16 03/03/21 20:01 BP 162/73 03/03/21 20:01 Pulse Ox 94 L 03/03/21 20:01 Intake & Output 03/03/21 03/03/21 03/04/21 06:59 18:59 06:59 Intake Total 900 Balance 900 Weight 40.597 kg Intake: Intake, IV Titration 900 Amount Sodium Chloride 0.9% 1, 900 000 ml @ 75 mls/hr IV . [id number] [facility] Rx#:[id number] Other: Voiding Method Toilet Toilet # Voids 3 2 1 - Exam Patient's mental status, speech and language functions are normal. Muscle strength is normal. No ataxia. - Labs CBC & Chem 7: 03/03/21 03:49 03/03/21 03:49 Labs: Abnormal Lab Results - Last 24 Hours (Table) 03/03/21 03/03/21 Range/Units 03:49 03:49 RBC 3.70 L (3.80-5.40) m/uL Sodium 132 L (137-145) mmol/L Total Protein 5.8 L (6.3-8.2) g/dL Albumin 3.4 L (3.5-5.0) g/dL Assessment and Plan Assessment: * Episodes of difficulty breathing (fast, shallow, with panting), and associated with dizziness and palpitations lasting for 5-6 minutes, sometimes longer. Patient does have anxiety issues. Symptoms suggestive of possible panic disorder. EEG shows no epileptiform activity. Rule out other pulmonary causes. * History of atrial fibrillation * COPD * Hypertension * Hyperlipidemia Plan: * EEG was abnormal due to background slowing of mild degree. This can be seen with encephalopathy of metabolic, vascular or degenerative causes. No epil eptiform activity was seen. * Carotid Doppler revealed atheromatous plaquing present bilaterally without significant flow-limiting stenosis within the common or internal carotid arteries. Antegrade flow in vertebral arteries. * 2-D echo on 02/16/2021 which revealed normal left-ventricular size. Moderate concentric LVH. EF is between 55-60%. Left atrial size is normal. * Continue Eliquis 2.5 mg twice a day, aspirin 81 mg and Lipitor. * B12 509, folate > 20.0. Thyroid function tests are normal. * Telemetry monitoring showing sinus rhythm with sinus bradycardia, with no other arrhythmia. * Consider treatment for panic disorder. Patient on Zoloft, but the dose is very low 25 mg. May need to optimize the dose gradually to 100 mg for panic disorder. * Neurologically clear.
[2021-03-04] MEDS ORDERED: REGADENOSON 0.4 MG/5 ML SYRINGE IV PRN (05:00)
[2021-03-04] MEDS: hydrALAZINE HCL 20 MG/ML 1 ML VIAL IVP PRN (05:04)
[2021-03-04] MEDS: SODIUM CHLORIDE 0.9% 1,000 ML IV SCH ×2 (05:48→17:32)
[2021-03-04] MEDS: LEVOTHYROXINE 75 MCG TAB PO SCH (05:48)
[2021-03-04 05:53] LABS: Basophils % (A) 0 %; Eosinophils # (A) 0.1 k/uL (0-0.7); Eosinophils % (A) 2 %; HCT 30.7 % (34.0-46.0); Lymphocytes # (A) 1.2 k/uL (1.0-4.8); Lymphocytes % (A) 15 %; MCH 30.7 pg (25.0-35.0); MCHC 32.7 g/dL (31.0-37.0); MCV 93.9 fL (80.0-100.0); Mean Platelet Volume 7.5; Monocytes # (A) 0.5 k/uL (0-1.0); Monocytes % (A) 6 %; Neutrophils # (A) 6.2 k/uL (1.3-7.7); Neutrophils % (A) 76 %; Platelet Count 220 k/uL (150-450); RBC 3.27 m/uL (3.80-5.40); RDW 14.6 % (11.5-15.5); WBC 8.1 k/uL (3.8-10.6)
[2021-03-04 06:18] LABS: ALT 20 U/L (4-34); AST 32 U/L (14-36); African American GFR (CKD) >90 (>60 ml/min/1.73 sqM); Albumin 3.1 g/dL (3.5-5.0); Albumin/Globulin Ratio 1.3; Alkaline Phosphatase 48 U/L (38-126); Anion Gap 6 mmol/L; Blood Urea Nitrogen 18 mg/dL (7-17); Calcium 8.5 mg/dL (8.4-10.2); Carbon Dioxide 24 mmol/L (22-30); Chloride 100 mmol/L (98-107); Globulin 2.3 g/dL; Glucose 99 mg/dL (74-99); Magnesium 1.6 mg/dL (1.6-2.3); Non-African American GFR(CKD) 89 (>60 ml/min/1.73 sqM); Potassium 3.7 mmol/L (3.5-5.1); Sodium 130 mmol/L (137-145); Total Bilirubin 0.9 mg/dL (0.2-1.3); Total Protein 5.4 g/dL (6.3-8.2)
[2021-03-04] MEDS: SYMBICORT 80-4.5 MCG INHALER INHALATION SCH ×2 (07:33→19:42)
[2021-03-04] MEDS: IPRATROPIUM 0.5 MG/2.5 ML NEBU INHALATION SCH ×4 (07:34→19:42)
[2021-03-04] MEDS: PANTOPRAZOLE 40 MG TABLET PO SCH ×2 (08:04→08:18)
[2021-03-04] MEDS: LORATADINE 10 MG TAB PO SCH ×2 (08:05→08:18)
[2021-03-04] MEDS: ASPIRIN 81 MG PO SCH (08:18)
[2021-03-04] MEDS: ISOSORBIDE MONONITRATE ER 30 MG TAB.ER.24H PO SCH (08:18)
[2021-03-04] MEDS: APIXABAN 2.5 MG TABLET PO SCH ×2 (08:18→20:57)
[2021-03-04] MEDS: LOSARTAN 25 MG TAB PO SCH (08:18)
[2021-03-04] MEDS: METOPROLOL TARTRATE 25 MG TAB PO SCH ×2 (08:19→20:57)
--- NOTE | 2021-03-04 12:01 | P.PN ---
Subjective HISTORY OF PRESENTING ILLNESS This is a pleasant 85-year-old female past medical history significant for paroxysmal atrial fibrillation on eliquis, hypertension, dyslipidemia, former nicotine dependence and melanoma. She follows in the office with Dr. Pal. We have been asked to see in consultation for dizziness and palpitations. She states she sitting down and upon standing she started to feel a tightness in her throat associated with difficulty taking a deep breath. Then she states her legs start to feel weak and she has to tiwari to a chair so she can sit before she passes out. While this is going on she also feels her heart be ating rapidly and irregularly. These symptoms always occur with activity, not at rest. She had a similar type episode and was admitted to the hospital February 16. At that time an echocardiogram revealed preserved LV systolic function with ejection fraction 55-60%, mild MR and mild TR. She also had some EKG changes at that time which were opted to be treated medically with aspirin and nitrate. The patient is also concerned about issues with memory loss recently. She states she doesn't always remember things from day to day and his been feeling more confused lately. Orthostatic vital signs obtained are unremarkable. She has been seen in consultation by neurology who recommends an EEG and carotid Dopplers. They are ruling out panic disorder versus seizures. 03/03/2021 Patient seen and examined in no acute distress. Review of monitor the patient was wearing from the office has been unremarkable. No evidence of arrhythmia or pauses to correlate with her near syncope. Blood pressure 154/68 heart rate 67 afebrile maintaining oxygen saturation on room air. Laboratory data reviewed, WBC 8.1, hemoglobin 10, platelets 220, sodium 1:30, potassium 3.7 and creatinine 0.5. Telemetry tracings reveal sinus rhythm. Carotid Doppler reveals erythematous plaquing present bilaterally without significant flow-limiting stenosis. Neurology has seen and evaluated the patient. They are clearing her from their perspective. PHYSICAL EXAMINATION Blood pressure 176/68 heart rate 83 afebrile and maintaining oxygen saturation on room air. CONSTITUTIONAL: No apparent distress. Frail. HEENT: Head is normocephalic. Pupils are equal, round. Sclerae anicteric. Mucous membranes of the mouth are moist. No JVD. No carotid bruit. CHEST EXAMINATION: Lungs are clear to auscultation. No chest wall tenderness is noted on palpation or with deep breathing. HEART EXAMINATION: Regular rate and rhythm. S1, S2 heard. No murmurs, gallops or rub. EXTREMITIES: 2+ peripheral pulses, no lower extremity edema and no calf tenderness. ASSESSMENT Dizziness and palpitations Near syncope Paroxysmal atrial fibrillation on eliquis, currently in SR Hypertension Dyslipidemia Confusion Former nicotine dependence PLAN Proceed with stress test as previously discussed in the office with Dr. Pal. Nurse Practitioner note has been reviewed, I agree with a documented findings and plan of care. Patient was seen and examined. Objective - Vital Signs Vital signs: Vital Signs Temp 98.2 F 03/04/21 04:50 Pulse 67 03/04/21 04:50 Resp 16 03/04/21 04:50 BP 154/68 03/04/21 05:49 Pulse Ox 95 03/04/21 04:50 Intake & Output 03/03/21 03/04/21 03/04/21 18:59 06:59 18:59 Intake Total 900 Balance 900 Weight 40.597 kg Intake: Intake, IV Titration 900 Amount Sodium Chloride 0.9% 1, 900 000 ml @ 75 mls/hr IV . [id number] [facility] Rx#:[id number] Other: Voiding Method Toilet Toilet Toilet # Voids 2 2 - Labs CBC & Chem 7: 03/04/21 05:10 03/04/21 05:10 Labs: Abnormal Lab Results - Last 24 Hours (Table) 03/04/21 03/04/21 Range/Units 05:10 05:10 RBC 3.27 L (3.80-5.40) m/uL Hgb 10.0 L (11.4-16.0) gm/dL Hct 30.7 L (34.0-46.0) % Sodium 130 L (137-145) mmol/L BUN 18 H (7-17) mg/dL Creatinine 0.50 L (0.52-1.04) mg/dL Total Protein 5.4 L (6.3-8.2) g/dL Albumin 3.1 L (3.5-5.0) g/dL
--- NOTE | 2021-03-04 14:02 | NM ---
EXAMINATION TYPE: NM stress lexiscan cardiolite DATE OF EXAM: 03/04/2021 COMPARISON: NONE HISTORY: near syncope TECHNIQUE: After the intravenous administration of 10.2 mCi Tc 99m Sestamibi - Cardiolite resting SP ECT images acquired 80 minutes post injection. The patient received 0.4mg Lexiscan, 24.9 mCi Tc 99m Sestamibi - Stress images obtained [address] injection FINDINGS: Review of stress and rest SPECT images demonstrates some decreased uptake of the inferior wall the le ft ventricle towards the base the heart and stress as compared to rest images. Gated analysis shows normal wall motion with an estimated left ventricular ejection fraction of 71 %. IMPRESSION: Difficult to exclude pharmacologically-induced left ventricular myocardial ischemia at the base of th e heart, findings may be technical. Consider echocardiographic correlation for elevated ejection frac tion.
--- NOTE | 2021-03-04 16:59 | P.STRESS ---
- Stress Test Note Stress Test Results/Findings: Exam Performed: NM stress lexiscan cardiolite Exam Date: 03/04/21 Reason for Exam: CP Height: 5 ft 4 in Weight: 40.6 kg Protocol: LEXISCAN Stage: NA Duration of Exercise: NA Resting Heart Rate: 65 Resting Blood Pressure: 154/61 Maximum Achieved Heart Rate: 97 Maximum Achieved Blood Pressure: 154/61 85% PMHR: 115 100% PMHR: 135 METS: NA Technologist Comment: Stress Test Results/Findings: This is a 85-year-old female was admitted to the hospital with palpitation and chest pain and throat pain. Stress data: Baseline EKG showed sinus rhythm with nonspecific ST-T changes. Blood pressure at rest is 154/61, pulse rate of 65. History and also Lexiscan was infused ST depressions of about 1 mm is noted in the lateral leads suggestive of ischemia. Patient did not experience any chest pain. Final impression: #1. Abnormal Lexiscan stress test suggestive of ischemia #2. Report on the nuclear images to be provided by the radiologist
--- NOTE | 2021-03-04 20:28 | PN ---
PROGRESS NOTE I am covering for Dr. Caldwell. DATE OF SERVICE: 03/04/2021 This 85-year-old woman who was admitted with multiple medical problems, including hyponatremia, change in mental status, metabolic encephalopathy, is being closely monitored at this time. The patient underwent a stress test today per cardiology recommendations. The stress test report was abnormal, suggestive of ischemia, and the nuclear part showed difficulty pharmacologically induced left ventricular ischemia. No chest pain. No palpitations. No fever. PHYSICAL EXAMINATION: Alert and oriented x3. Pulse is 68, blood pressure 170/72, respirations 16, temperature 98 degrees, pulse ox 94% on room air. HEENT: Conjunctivae normal. NECK: No jugular venous distention. CARDIOVASCULAR: S1, S2 muffled. RESPIRATION: Breath sounds diminished at the bases. A few scattered rhonchi. ABDOMEN: Soft, non-tender. NERVOUS SYSTEM: No focal deficit. LABS: WBC 8.3, hemoglobin is 10, sodium is 130. ASSESSMENT: 1. Change in mental status, acute metabolic encephalopathy, multifactorial. 2. Chronic hyponatremia. 3. Abnormal stress test. 4. Paroxysmal atrial fibrillation. 5. Hypertension. 6. Hyperlipidemia. 7. Chronic obstructive pulmonary disease with intermittent use of oxygen. 8. History of bladder cancer. 9. History of melanoma of the left arm. 10.Anxiety, depression. 11.History of nicotine dependence. 12.History of memory impairment. 13.FULL CODE. RECOMMENDATIONS AND DISCUSSION: I recommend to continue current medications, continue with symptomatic treatment. Otherwise at this time I recommend closely following with Cardiology. Prognosis is guarded because of multiple complex medical issues, as detailed above. The patient is on antiplatelet agents as well as apixaban. Further recommendations to follow. MMODL / IJN: [id number] / MTDD
[2021-03-04] MEDS: SERTRALINE 25 MG TAB PO SCH (20:56)
[2021-03-04] MEDS: ATORVASTATIN 40 MG TAB PO SCH (20:56)
[2021-03-05] MEDS: SODIUM CHLORIDE 0.9% 1,000 ML IV SCH ×2 (05:50→06:02)
[2021-03-05] MEDS: LEVOTHYROXINE 75 MCG TAB PO SCH (06:02)
--- NOTE | 2021-03-05 09:03 | P.PN ---
Subjective Progress Note Date: 03/04/21 Patient was seen for a follow-up. Patient is doing better. Patient now had a positive stress test. Cardiology is following. No new focal symptoms. No neurological symptoms. Telemetry monitoring in the last 24 hours showing sinus rhythm, with some PVCs. Objective - Vital Signs Vital signs: Vital Signs Temp 98.1 F 03/05/21 05:00 Pulse 74 03/05/21 05:00 Resp 16 03/05/21 05:00 BP 151/75 03/05/21 05:00 Pulse Ox 95 03/05/21 05:00 Intake & Output 03/04/21 03/05/21 03/05/21 18:59 06:59 18:59 Intake Total 900 450 Balance 900 450 Weight 40.6 kg Intake: Intake, IV Titration 900 450 Amount Sodium Chloride 0.9% 1, 900 450 000 ml @ 75 mls/hr IV . [id number] [facility] Rx#:[id number] Other: Voiding Method Toilet Toilet # Voids 2 1 - Exam Patient's mental status, speech and language functions are normal. Muscle st rength is normal. No ataxia. - Labs CBC & Chem 7: 03/04/21 05:10 03/04/21 05:10 Assessment and Plan Assessment: * Episodes of difficulty breathing (fast, shallow, with panting), and associated with dizziness and palpitations lasting for 5-6 minutes, sometimes longer. Patient does have anxiety issues. Symptoms suggestive of possible panic disorder. EEG shows no epileptiform activity. Rule out other pulmonary causes. Patient had a positive stress test. * History of atrial fibrillation * COPD * Hypertension * Hyperlipidemia Plan: * Patient had a positive stress test. Patient following up with cardiology. This is likely the cause of her intermittent breathing difficulty. * EEG was abnormal due to background slowing of mild degree. This can be seen with encephalopathy of metabolic, vascular or degenerative causes. No epileptiform activity was seen. * Carotid Doppler revealed atheromatous plaquing present bilaterally without significant flow-limiting stenosis within the common or internal carotid arteries. Antegrade flow in vertebral arteries. * 2-D echo on 02/16/2021 which revealed normal left-ventricular size. Moderate concentric LVH. EF is between 55-60%. Left atrial size is normal. * Continue Eliquis 2.5 mg twice a day, aspirin 81 mg and Lipitor. * B12 509, folate > 20.0. Thyroid function tests are normal. * Telemetry monitoring showing sinus rhythm with sinus bradycardia, with no other arrhythmia. * Consider treatment for panic disorder. Patient on Zoloft, but the dose is very low 25 mg. May need to optimize the dose gradually to 100 mg for panic disorder. * As there is no active neurological issue, we will sign off. Please reconsult neurology if any concerns.
[2021-03-05] MEDS: IPRATROPIUM 0.5 MG/2.5 ML NEBU INHALATION SCH ×4 (09:22→20:53)
[2021-03-05] MEDS: SYMBICORT 80-4.5 MCG INHALER INHALATION SCH ×2 (09:22→20:53)
[2021-03-05] MEDS ORDERED: Magnesium Replacement Protocol 1 EACH MISC MISCELLANE PRN (09:25)
[2021-03-05] MEDS ORDERED: Potassium Replacement Protocol 1 EACH MISC MISCELLANE PRN ×2 (09:26→17:09)
[2021-03-05] MEDS: METOPROLOL TARTRATE 25 MG TAB PO SCH ×2 (09:31→20:57)
[2021-03-05] MEDS: APIXABAN 2.5 MG TABLET PO SCH ×2 (09:31→20:56)
[2021-03-05] MEDS: LOSARTAN 25 MG TAB PO SCH (09:31)
[2021-03-05] MEDS: PANTOPRAZOLE 40 MG TABLET PO SCH (09:32)
[2021-03-05] MEDS: ASPIRIN 81 MG PO SCH (09:32)
[2021-03-05] MEDS: ISOSORBIDE MONONITRATE ER 30 MG TAB.ER.24H PO SCH (09:32)
[2021-03-05] MEDS: LORATADINE 10 MG TAB PO SCH (09:32)
[2021-03-05] MEDS: MAGNESIUM SULFATE-D5W PMX 1 GM in DEXTROSE/WATER 1 100ML.BAG IVPB SCH ×2 (09:54→11:38)
[2021-03-05] MEDS ORDERED: POTASSIUM CHLORIDE ER 20 MEQ TAB.ER PO SCH (10:00)
[2021-03-05] MEDS ORDERED: MECLIZINE 25 MG TAB PO PRN (12:57)
--- NOTE | 2021-03-05 14:21 | P.PN ---
Subjective Progress Note Date: 03/05/21 This is an 85-year-old woman who is admitted with multiple medical problems including hyponatremia, change in mental status, metabolic encephalopathy is being followed closely at this time. Patient underwent stress test today per cardiology, stress test report was abnormal suggestive of ischemia and the nuclear part showed induced left ventricle ischemia, no chest pain and palpitation no fever. 03/05/2021 Patient is feeling quite weak and dizzy today, lightheadedness, reports she has history of vertigo will most likely need rehab., Vital signs are stable she is afebrile. REVIEW OF SYSTEMS: ENT: No diminished vision or hearing. CARDIOVASCULAR: negative RESPIRATORY: negative NERVOUS SYSTEM: Dizziness lightheadedness MUSCULOSKELETAL: As mentioned earlier. HEMATOLOGY/ONCOLOGY: No history of anemia. CONSTITUTIONAL: As mentioned earlier. HEENT: Head is atraumatic, normocephalic. Pupils equal, round. Sclerae is anicteric. NECK: Supple. No JVD. No lymphadenopathy. No thyromegaly. LUNGS: Clear to auscultation. No wheezes or rhonchi. HEART: Regular rate and rhythm. No murmur. ABDOMEN: Soft. Bowel sounds are present. No masses. EXTREMITIES: No pedal edema. NEUROLOGICAL: Patient is awake, alert and oriented x3. Cranial nerves 2 through 12 are grossly intact. Altered mental status due to an acute metabolic encephalopathy, multifactorial Chronic hyponatremia Abnormal stress test Paroxysmal atrial fibrillation Hypertension Hyperlipidemia COPD with intermittent use of oxygen History of bladder cancer History of melanoma on the left arm Anxiety and depression History of nicotine dependence History of memory impairment Vertigo Will be started on Antivert for the dizziness and lightheadedness, she'll be continued on other current medications. She is being followed by cardiology, we'll have her evaluated by therapy she may require subacute rehab placement due to her weakness. Continue on antiplatelets as well as Eliquis. Continue to monitor LITES and renal function. We will continue to follow Objective - Vital Signs Vital signs: Vital Signs Temp 98.3 F 03/05/21 12:13 Pulse 68 03/05/21 12:13 Resp 17 03/05/21 12:13 BP 147/56 03/05/21 12:13 Pulse Ox 94 L 03/05/21 12:13 Intake & Output 03/04/21 03/05/21 03/05/21 18:59 06:59 18:59 Intake Total 900 450 Balance 900 450 Weight 40.6 kg Intake: Intake, IV Titration 900 450 Amount Sodium Chloride 0.9% 1, 900 450 000 ml @ 75 mls/hr IV . [id number] [facility] Rx#:[id number] Other: Voiding Method Toilet Toilet Toilet # Voids 2 1 - Labs CBC & Chem 7: 03/04/21 05:10 03/04/21 05:10
[2021-03-05 15:09] LABS: Glucose,Whole Blood 110 mg/dL (75-99)
[2021-03-05 16:37] LABS: Anisocytosis Slight; Basophils % (A) 0 %; Eosinophils # (A) 0.1 k/uL (0-0.7); Eosinophils % (A) 1 %; HCT 25.1 % (34.0-46.0); Lymphocytes # (A) 0.8 k/uL (1.0-4.8); Lymphocytes % (A) 10 %; MCH 30.3 pg (25.0-35.0); MCHC 32.7 g/dL (31.0-37.0); MCV 92.6 fL (80.0-100.0); Mean Platelet Volume 7.6; Monocytes # (A) 0.5 k/uL (0-1.0); Monocytes % (A) 6 %; Neutrophils # (A) 6.5 k/uL (1.3-7.7); Neutrophils % (A) 81 %; Platelet Count 206 k/uL (150-450); RBC 2.71 m/uL (3.80-5.40); RDW 16.1 % (11.5-15.5)
[2021-03-05 16:52] LABS: AST 28 U/L (14-36); African American GFR (CKD) >90 (>60 ml/min/1.73 sqM); Albumin 2.8 g/dL (3.5-5.0); Albumin/Globulin Ratio 1.3; Anion Gap 6 mmol/L; Blood Urea Nitrogen 27 mg/dL (7-17); Calcium 8.1 mg/dL (8.4-10.2); Carbon Dioxide 25 mmol/L (22-30); Chloride 99 mmol/L (98-107); Globulin 2.1 g/dL; Glucose 104 mg/dL (74-99); Non-African American GFR(CKD) 82 (>60 ml/min/1.73 sqM); Potassium 3.2 mmol/L (3.5-5.1); Sodium 130 mmol/L (137-145); Total Bilirubin 0.6 mg/dL (0.2-1.3); Total Protein 4.9 g/dL (6.3-8.2)
[2021-03-05 16:53] LABS: ALT 17 U/L (4-34); Alkaline Phosphatase 47 U/L (38-126)
[2021-03-05 16:59] LABS: HGB 8.2 gm/dL (11.4-16.0)
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
[2021-03-05] MEDS: POTASSIUM CHLORIDE ER 20 MEQ TAB.ER PO SCH ×2 (18:12→19:27)
[2021-03-05] MEDS: SERTRALINE 25 MG TAB PO SCH (20:56)
[2021-03-05] MEDS: ATORVASTATIN 40 MG TAB PO SCH (20:57)
[2021-03-06] MEDS: LEVOTHYROXINE 75 MCG TAB PO SCH (05:46)
[2021-03-06] MEDS: SODIUM CHLORIDE 0.9% 1,000 ML IV SCH ×2 (05:47→22:10)
[2021-03-06] MEDS: METOPROLOL TARTRATE 25 MG TAB PO SCH ×2 (07:46→19:48)
[2021-03-06] MEDS: PANTOPRAZOLE 40 MG TABLET PO SCH (07:46)
[2021-03-06] MEDS: ASPIRIN 81 MG PO SCH (07:46)
[2021-03-06] MEDS: LOSARTAN 25 MG TAB PO SCH (07:46)
[2021-03-06] MEDS: ISOSORBIDE MONONITRATE ER 30 MG TAB.ER.24H PO SCH (07:47)
[2021-03-06] MEDS: SYMBICORT 80-4.5 MCG INHALER INHALATION SCH ×2 (08:46→20:17)
[2021-03-06] MEDS: IPRATROPIUM 0.5 MG/2.5 ML NEBU INHALATION SCH ×4 (08:46→20:17)
--- NOTE | 2021-03-06 14:02 | P.PN ---
Subjective Progress Note Date: 03/06/21 Principal diagnosis: Altered mental status This is Juliano whiteside NP, dictating a progress note on behalf of Dr. Colby. Patient was interviewed and examined. Patient is a pleasant 85-year-old female with a past medical history significant for paroxysmal atrial fibrillation on Eliquis, hypertension, dyslipidemia, former nicotine dependence, and melanoma. She follows in the cardiology office with Dr. Pal. Patient states today she continues to have bouts of dizziness, not so much heart palpitations. Review of the patient's labs today demonstrates sodium of 130, potassium 3.2, BUN 27, creatinine 0.63, calcium 8.1, magnesium 1.7. Patient did have a nuclear Lexiscan Cardiolite stress test yesterday, which does demonstrate ST depressions of about 1 mm during the Lexiscan portion of the test suggestive of ischemia in the lateral leads. Patient did not experience any chest pain during the scan. Radiologic aspect of the Lexiscan stress test does state that is difficult to exclude pharmacologically induced left ventricular myocardial ischemia at the base of the heart. 03/06/2021: Patient reports that she's feeling better today. Some of her dizziness and tightness in the neck symptoms have resolved. We discussed extensively the reasoning behind getting a heart cath on Sunday. Patient is hesitant due to the fact that she takes care of her at home. I discussed the reason for doing the procedure. I discussed with her the way that they access the heart at this time through the wrist. I discussed with the patient that the possibility of her going home the same day is reasonable. The patient did want to take some time and speak with her before making a final decision. GENERAL: Well-appearing, well-nourished and in no acute distress. NECK: Supple without JVD or thyromegaly. LUNGS: Breath sounds clear to auscultation bilaterally. Respiration equal and unlabored. No wheezes, rales or rhonchi. HEART: Regular rate and rhythm, systolic murmur, no rubs or gallops. S1 and S2 heard. EXTREMITIES: Normal range of motion, no edema. No clubbing or cyanosis. Peripheral pulses intact and strong. VITALS: [Temp 98.7, pulse rate 72, respirations 18, blood pressure 152/64, O2 saturation 95% on room air] TELEMETRY: [Normal sinus rhythm] LABS: [White count 8.0, hemoglobin 8.2, sodium 1:30, potassium 3.6, B1 27, creatinine 0.63, magnesium 1.8] IMPRESSION/PLAN: 1. Stress induced ST changes/Lexiscan indicated ischemia-hold Eliquis today in preparation for cardiac cath tomorrow. 2. Hypertension-continue hydralazine when necessary, continue Imdur, continue losartan, continue metoprolol. 3. Dyslipidemia continue atorvastatin Continuing recommendations will be determined by the patient's clinical course. Thank you for allowing us to participate in the care of this patient. Objective - Vital Signs Vital signs: Vital Signs Temp 98.7 F 03/06/21 12:42 Pulse 72 03/06/21 12:42 Resp 18 03/06/21 12:42 BP 152/64 03/06/21 12:42 Pulse Ox 95 03/06/21 12:42 Intake & Output 03/05/21 03/06/21 03/06/21 18:59 06:59 18:59 Intake Total 400 100 Balance 400 100 Intake: Oral 400 100 Other: Voiding Method Toilet Toilet Toilet # Voids 2 2 - Labs CBC & Chem 7: 03/05/21 16:16 03/05/21 20:54 Labs: Abnormal Lab Results - Last 24 Hours (Table) 03/05/21 03/05/21 03/05/21 Range/Units 15:07 16:16 16:16 RBC 2.71 L (3.80-5.40) m/uL Hgb 8.2 L D (11.4-16.0) gm/dL Hct 25.1 L (34.0-46.0) % RDW 16.1 H (11.5-15.5) % Lymphocytes # 0.8 L (1.0-4.8) k/uL Sodium 130 L (137-145) mmol/L Potassium 3.2 L (3.5-5.1) mmol/L BUN 27 H (7-17) mg/dL Glucose 104 H (74-99) mg/dL POC Glucose (mg/dL) 110 H (75-99) mg/dL Calcium 8.1 L (8.4-10.2) mg/dL Total Protein 4.9 L (6.3-8.2) g/dL Albumin 2.8 L (3.5-5.0) g/dL
[2021-03-06 14:34] LABS: Glucose,Whole Blood 143 mg/dL (75-99)
[2021-03-06] MEDS ORDERED: ALPRAZolam 0.25 MG TAB PO PRN (14:48)
[2021-03-06] MEDS ORDERED: NITROGLYCERIN SL TABS 0.4 MG TAB SUBLINGUAL PRN (14:48)
[2021-03-06] MEDS ORDERED: ASPIRIN 325 MG TAB PO STA (14:48)
[2021-03-06] MEDS ORDERED: ALPRAZolam 0.5 MG TAB PO PRN (14:48)
[2021-03-06] MEDS ORDERED: ATORVASTATIN 80 MG TAB PO STA (14:48)
[2021-03-06] MEDS ORDERED: SODIUM CHLORIDE 0.9% 1,000 ML in EMPTY BAG 1 BAG IV SCH (15:00)
[2021-03-06] MEDS ORDERED: Potassium Replacement Protocol 1 EACH MISC MISCELLANE PRN (16:57)
[2021-03-06] MEDS ORDERED: Magnesium Replacement Protocol 1 EACH MISC MISCELLANE PRN (16:57)
--- NOTE | 2021-03-06 18:07 | PN ---
PROGRESS NOTE DATE OF SERVICE: 03/06/2021 I am covering for Dr. Caldwell. This is an 85-year-old woman who was admitted with multiple medical issues and change in mental status. Patient also had chronic hyponatremia. Cardiology has seen the patient, recommend cardiac cath tomorrow. No chest pain. No palpitations. No fever. PHYSICAL EXAMINATION: Alert and oriented x2. Pulse 72, blood pressure 150/60, respiration 18, temperature 98.2, pulse ox 94% on room air. HEENT: Conjunctivae normal. Oral mucosa moist. NECK: No jugular venous distention. No lymph node enlargement. CARDIOVASCULAR: S1, S2, muffled. No S3, no S4, RESPIRATORY: Diminished breath sounds at the bases. A few scattered rhonchi. ABDOMEN: Soft. LEGS: No edema, no swelling. NERVOUS SYSTEM: No focal deficits. LABS: WBC 8, hemoglobin is 8.2, sodium 130, potassium 3.2. ASSESSMENT: 1. Change in mental status, acute metabolic encephalopathy, multifactorial, present on admission. 2. Abnormal stress test, possibly coronary disease for cardiac cath. 3. Chronic hyponatremia. 4. Hypokalemia. 5. Paroxysmal atrial fibrillation. 6. Hypertension. 7. Hyperlipidemia. 8. Chronic obstructive pulmonary disease with intermittent use of oxygen. 9. History of bladder cancer. 10.History of melanoma of left arm. 11.Anxiety, depression. 12.History of nicotine dependence. 13.History of memory impairment. 14.FULL CODE. RECOMMENDATIONS: Recommend to continue current management and symptomatic treatment. Otherwise, at this time repeat labs, replacement protocol. Closely follow with Cardiology. Guarded prognosis. Further recommendations to follow. MMODL / IJN: [id number] /
[2021-03-06] MEDS: ATORVASTATIN 40 MG TAB PO SCH (19:48)
[2021-03-06] MEDS: SERTRALINE 25 MG TAB PO SCH (19:48)
[2021-03-07 06:21] LABS: Glucose,Whole Blood 123 mg/dL (75-99)
[2021-03-07 06:22] LABS: Anisocytosis Slight; Basophils % (A) 0 %; Eosinophils # (A) 0.1 k/uL (0-0.7); Eosinophils % (A) 2 %; HCT 23.1 % (34.0-46.0); HGB 7.4 gm/dL (11.4-16.0); Lymphocytes # (A) 1.1 k/uL (1.0-4.8); Lymphocytes % (A) 14 %; MCH 30.7 pg (25.0-35.0); MCV 95.9 fL (80.0-100.0); Macrocytosis Slight; Mean Platelet Volume 7.8; Monocytes # (A) 0.5 k/uL (0-1.0); Monocytes % (A) 7 %; Neutrophils # (A) 5.7 k/uL (1.3-7.7); Neutrophils % (A) 75 %; Platelet Count 185 k/uL (150-450); RDW 16.2 % (11.5-15.5); WBC 7.6 k/uL (3.8-10.6)
[2021-03-07] MEDS: LEVOTHYROXINE 75 MCG TAB PO SCH ×2 (06:25→07:17)
[2021-03-07] MEDS ORDERED: HEPARIN SODIUM,PORCINE 10,000 UNIT in SODIUM CHLORIDE 0.9% 1,000 ML IRRIGATION PRN (07:00)
[2021-03-07] MEDS ORDERED: HEPARIN SODIUM,PORCINE 2,500 UNIT in SODIUM CHLORIDE 0.9% 250 ML IRRIGATION PRN (07:00)
[2021-03-07] MEDS: ASPIRIN 81 MG PO SCH (07:17)
[2021-03-07] MEDS: PANTOPRAZOLE 40 MG TABLET PO SCH (07:17)
[2021-03-07] MEDS: LOSARTAN 25 MG TAB PO SCH (07:17)
[2021-03-07] MEDS: ISOSORBIDE MONONITRATE ER 30 MG TAB.ER.24H PO SCH (07:17)
[2021-03-07] MEDS: METOPROLOL TARTRATE 25 MG TAB PO SCH ×2 (07:17→20:03)
[2021-03-07] MEDS: IPRATROPIUM 0.5 MG/2.5 ML NEBU INHALATION SCH ×4 (07:21→18:52)
[2021-03-07] MEDS: SYMBICORT 80-4.5 MCG INHALER INHALATION SCH ×2 (07:21→18:52)
[2021-03-07] MEDS: SODIUM CHLORIDE 0.9% 1,000 ML IV SCH ×2 (09:29→16:52)
[2021-03-07 10:15] LABS: African American GFR (CKD) 102.7 (60.0-200.0); Anion Gap 8.4 mmol/L (4.00-12.00); BUN/Creat Ratio 37.25 Ratio (12.00-20.00); Blood Urea Nitrogen 18.4 mg/dL (9.0-27.0); Calcium 8.1 mg/dL (8.7-10.3); Magnesium 1.7 mg/dL (1.5-2.4); Non-African American GFR(CKD) 88.6 (60.0-200.0); Potassium 3.8 mmol/L (3.5-5.5)
--- NOTE | 2021-03-07 12:43 | P.PN ---
Subjective Patient is a pleasant 85-year-old female with a past medical history significant for paroxysmal atrial fibrillation on Eliquis, hypertension, dyslipidemia, former nicotine dependence, and melanoma. She follows in the cardiology office with Dr. Pal. Patient did have a nuclear Lexiscan stress test 03/04/[address] depressions of about 1 mm during the Lexiscan portion of the test suggestive of ischemia in the lateral leads. Patient did not experience any chest pain during the scan. Radiologic aspect of the Lexiscan stress test does state that is difficult to exclude pharmacologically induced left ventricular myocardial ischemia at the base of the heart. 03/07/21: Patient reports that she's feeling better today. Some of her dizziness and tightness in the neck symptoms have resolved. Blood pressure 150/71, heart rate 70, afebrile, maintaining oxygen saturations >92% on room air. Laboratory data today reviewed, WBC 7.6, hemoglobin 7.4 (8.2 on 03/05/21), platelets 95, sodium 133, potassium 3.8, BUN 18.4, serum creatinine 0.5, magnesium 1.7. Patient denies any blood in her urine or stool. She's currently maintained on Eliquis 2.5 mg twice a day, aspirin 81 mg daily, atorvastatin 40 mg nightly, Imdur 30 mg daily, losartan 25 mg daily, Lopressor 25 mg twice a day GENERAL: In no acute distress. NECK: Supple without JVD or thyromegaly. LUNGS: Breath sounds clear to auscultation bilaterally. Respiration equal and unlabored. No wheezes, rales or rhonchi. HEART: Regular rate and rhythm, systolic murmur, no rubs or gallops. S1 and S2 heard. EXTREMITIES: Normal range of motion, no edema. No clubbing or cyanosis. Peripheral pulses intact and strong. ASSESSMENT Dizziness Paroxysmal atrial fibrillation Stress induced ST changes/Lexiscan indicated ischemia on 03/04/21 Hypertension Dyslipidemia continue atorvastatin Former nicotine dependence Anemia PLAN: -Due to patient's drop in hemoglobin we will not proceed with cardiac catheterization, this was discussed with Dr. Pal -Recommend anemia workup per primary -From a cardiology perspective, we will stop patient's aspirin. -Continue Imdur, losartan, metoprolol and statin -Further recommendations based on clinical course Thank you for allowing us to participate in the care of this patient. Objective - Vital Signs Vital signs: Vital Signs Temp 98 F 03/07/21 04:42 Pulse 70 03/07/21 04:42 Resp 16 03/07/21 04:42 BP 158/71 03/07/21 04:42 Pulse Ox 93 L 03/07/21 04:42 Intake & Output 03/06/21 03/07/21 03/07/21 18:59 06:59 18:59 Intake Total 360 328.8 Balance 360 328.8 Intake: Intake, IV Titration 328.8 Amount Sodium Chloride 0.9% 1, 4 000 ml @ 75 mls/hr IV . [id number] [facility] [place] Rx#:[id number] Sodium Chloride 0.9% 1, 324.8 000 ml In Empty Bag 1 bag @ 1 ML/KG/HR 40.6 mls/hr IV .Q24H [facility] [place] Rx#: [id number] Oral 360 Other: Voiding Method Toilet Toilet # Voids 3 0 # Bowel Movements 1 0 - Labs CBC & Chem 7: 03/07/21 05:58 03/07/21 05:58 Labs: Abnormal Lab Results - Last 24 Hours (Table) 03/06/21 03/07/21 03/07/21 Range/Units 14:31 05:58 05:58 RBC 2.40 L (3.80-5.40) m/uL Hgb 7.4 L (11.4-16.0) gm/dL Hct 23.1 L (34.0-46.0) % RDW 16.2 H (11.5-15.5) % Sodium 133 L (135-145) mmol/L Creatinine 0.5 L (0.6-1.5) mg/dL BUN/Creatinine Ratio 37.25 H (12.00-20.00) Ratio POC Glucose (mg/dL) 143 H (75-99) mg/dL Calcium 8.1 L (8.7-10.3) mg/dL 03/07/21 Range/Units 06:19 RBC (3.80-5.40) m/uL Hgb (11.4-16.0) gm/dL Hct (34.0-46.0) % RDW (11.5-15.5) % Sodium (135-145) mmol/L Creatinine (0.6-1.5) mg/dL BUN/Creatinine Ratio (12.00-20.00) Ratio POC Glucose (mg/dL) 123 H (75-99) mg/dL Calcium (8.7-10.3) mg/dL
--- NOTE | 2021-03-07 14:38 | PN ---
PROGRESS NOTE Mrs. Nicole has been scheduled for a cardiac cath because of her abnormal stress test. I reviewed the stress test information. It appears that the area of ischemia is not significant. Ejection fraction is actually well preserved. Patient's symptoms and presentation also do not suggest strongly that we are dealing with myocardial ischemia. However, an issue came up with a low hemoglobin of 7.4. There is a drop in the hemoglobin. With the drop in hemoglobin and the stress test not suggesting a significant area of ischemia, I am recommending and I agree with the fact that cardiac cath has been canceled. Workup should be performed for anemia. I would also recommend that we discontinue the aspirin for this patient and leave her on the low-dose Eliquis for now. Cardiac-gr, no intervention. Await further workup for anemia. Vitals are stable. No JVD. S1-S2 heard normally. Short systolic murmur noted. Lungs reveal diminished air entry. Abdomen is soft. Lower extremities reveal diminished pulses. Central nervous system: No focal deficits. MMODL / IJN: [id number] /
--- NOTE | 2021-03-07 19:16 | PN ---
PROGRESS NOTE I am covering for Dr. Caldwell. DATE OF SERVICE: 03/07/2021. This 85-year-old woman who was admitted with acute change in mental status, metabolic encephalopathy, also had an abnormal stress test. Cardiology is recommending medical treatment. No chest pain. No palpitations. No fever. PHYSICAL EXAMINATION: Alert and oriented x2. Pulse 61, blood pressure 158/71, respirations 16, temperature 98.7, pulse ox % on room air. HEENT: Conjunctivae normal. NECK: No jugular venous distention. CARDIOVASCULAR: S1, S2 muffled. RESPIRATION: Breath sounds diminished at the bases. A few scattered rhonchi. ABDOMEN: Soft, nontender. LEGS: No edema. No swelling. NERVOUS SYSTEM: No focal deficit. LABS: Hemoglobin 7.4, sodium 133. ASSESSMENT: 1. Change in mental status, acute metabolic encephalopathy, multifactorial, present on admission. 2. Abnormal stress test, possibly coronary artery disease. Cardiac cath canceled. On medical treatment. 3. Chronic hyponatremia. 4. Hypokalemia. 5. Paroxysmal atrial fibrillation. 6. Hypertension. 7. Hyperlipidemia. 8. Chronic obstructive pulmonary disease with intermittent use of oxygen. 9. History of bladder cancer. 10.History of melanoma of the left arm. 11.Anxiety, depression. 12.History nicotine dependence. 13.History of memory impairment. 14.FULL CODE. RECOMMENDATIONS AND DISCUSSION: I recommend to continue current medications, continue with symptomatic treatment. Otherwise at this time, medical treatment. Add Norvasc to the current regimen. Further recommendations to follow. Dr. Caldwell will follow tomorrow. MMODL / IJN: [id number] / [facility]ITAL[facility]
[2021-03-07] MEDS: amLODIPine 5 MG TAB PO SCH (20:03)
[2021-03-07] MEDS: ATORVASTATIN 40 MG TAB PO SCH (20:03)
[2021-03-07] MEDS: SERTRALINE 25 MG TAB PO SCH (20:03)
[2021-03-08] MEDS: LEVOTHYROXINE 75 MCG TAB PO SCH (05:37)
[2021-03-08] MEDS: ISOSORBIDE MONONITRATE ER 30 MG TAB.ER.24H PO SCH (06:59)
[2021-03-08] MEDS: LOSARTAN 25 MG TAB PO SCH (06:59)
[2021-03-08] MEDS: METOPROLOL TARTRATE 25 MG TAB PO SCH ×2 (06:59→20:09)
[2021-03-08] MEDS: amLODIPine 5 MG TAB PO SCH (06:59)
[2021-03-08] MEDS: APIXABAN 2.5 MG TABLET PO SCH (06:59)
[2021-03-08] MEDS: PANTOPRAZOLE 40 MG TABLET PO SCH (06:59)
[2021-03-08] MEDS: SYMBICORT 80-4.5 MCG INHALER INHALATION SCH ×2 (07:29→20:24)
[2021-03-08] MEDS: IPRATROPIUM 0.5 MG/2.5 ML NEBU INHALATION SCH ×4 (07:30→20:24)
[2021-03-08 08:50] LABS: Anisocytosis Slight; Basophils % (A) 0 %; Eosinophils # (A) 0.1 k/uL (0-0.7); Eosinophils % (A) 2 %; HCT 21.7 % (34.0-46.0); HGB 7.1 gm/dL (11.4-16.0); Lymphocytes # (A) 0.8 k/uL (1.0-4.8); Lymphocytes % (A) 10 %; MCH 30.6 pg (25.0-35.0); MCHC 32.8 g/dL (31.0-37.0); MCV 93.3 fL (80.0-100.0); Mean Platelet Volume 7.9; Monocytes # (A) 0.5 k/uL (0-1.0); Monocytes % (A) 6 %; Neutrophils # (A) 6.2 k/uL (1.3-7.7); Neutrophils % (A) 80 %; Platelet Count 200 k/uL (150-450); RBC 2.32 m/uL (3.80-5.40); RDW 16.7 % (11.5-15.5); WBC 7.7 k/uL (3.8-10.6)
[2021-03-08 08:54] LABS: ALT 24 U/L (4-34); AST 42 U/L (14-36); African American GFR (CKD) >90 (>60 ml/min/1.73 sqM); Albumin 2.6 g/dL (3.5-5.0); Albumin/Globulin Ratio 1.2; Alkaline Phosphatase 69 U/L (38-126); Anion Gap 4 mmol/L; Blood Urea Nitrogen 15 mg/dL (7-17); Calcium 8.2 mg/dL (8.4-10.2); Carbon Dioxide 26 mmol/L (22-30); Chloride 100 mmol/L (98-107); Globulin 2.2 g/dL; Glucose 100 mg/dL (74-99); Non-African American GFR(CKD) 87 (>60 ml/min/1.73 sqM); Potassium 3.6 mmol/L (3.5-5.1); Sodium 130 mmol/L (137-145); Total Bilirubin 0.7 mg/dL (0.2-1.3); Total Protein 4.8 g/dL (6.3-8.2)
[2021-03-08] MEDS: MAGNESIUM OXIDE 400 MG TAB PO SCH ×2 (11:43→20:09)
--- NOTE | 2021-03-08 11:45 | P.PN ---
Subjective Patient is a pleasant 85-year-old female with a past medical history significant for paroxysmal atrial fibrillation on Eliquis, hypertension, dyslipidemia, former nicotine dependence, and melanoma. She follows in the cardiology office with Dr. Pal. Patient did have a nuclear Lexiscan stress test 03/04/[address] depressions of about 1 mm during the Lexiscan portion of the test suggestive of ischemia in the lateral leads. Patient did not experience any chest pain during the scan. Radiologic aspect of the Lexiscan stress test does state that is difficult to exclude pharmacologically induced left ventricular myocardial ischemia at the base of the heart, findings could be technical. Echocardiogram 02/16/2021 revealed EF 5560 percent, mild aortic regurgitation, mild mitral regurgitation, mild tricuspid regurgitation. 03/08/21 Patient reports that she's feeling better today. Some of her dizziness and tightness in the neck symptoms have resolved. Blood pressure 163/65, heart rate 77, afebrile, maintaining oxygen saturations >92% on room air. Laboratory data today reviewed, WBC 7.7, hemoglobin 7.1, platelets 200, sodium 130, potassium 3.6, BUN 15, serum creatinine 0.5. magnesium 1.6. Patient denies any blood in her urine or stool. She's currently maintained on atorvastatin 40 mg nightly, Imdur 30 mg daily, losartan 25 mg daily, Lopressor 25 mg twice a day. Her Eliquis has been held. GENERAL: In no acute distress. NECK: Supple without JVD or thyromegaly. LUNGS: Breath sounds clear to auscultation bilaterally. Respiration equal and unlabored. No wheezes, rales or rhonchi. HEART: Regular rate and rhythm, systolic murmur, no rubs or gallops. S1 and S2 heard. EXTREMITIES: Normal range of motion, no edema. No clubbing or cyanosis. Peripheral pulses intact and strong. ASSESSMENT Dizziness Altered mental status Paroxysmal atrial fibrillation Stress induced ST changes/Lexiscan indicated ischemia on 03/04/21. Per report findings on Lexiscan could be technical Hypertension Dyslipidemia continue atorvastatin Former nicotine dependence Anemia PLAN: -Due to patient's drop in hemoglobin we do not recommend proceeding with cardiac catheterization, this was discussed with patient's primary neon sign mechanic Dr. Pal -Recommend anemia workup per primary -GI has been consulted for anemia, Possible EGD/Colonoscopy On Sunday03/11/21. Ok to undergo EGD/Colonoscopy from a cardiology perspective. -Ok to hold Eliquis at this time, please restart when ok per GI. -Continue Imdur, losartan, metoprolol and statin -From a cardiology perspective, we recommend patient follow up with Dr. Pal for further management as an outpatient -We will follow the patient as needed. Please re-consult if there is any question or concerns. Thank you for allowing us to participate in the care of this patient. Objective - Vital Signs Vital signs: Vital Signs Temp 97.8 F 03/08/21 06:57 Pulse 77 03/08/21 06:57 Resp 18 03/08/21 06:57 BP 163/65 03/08/21 06:57 Pulse Ox 94 L 03/08/21 06:57 Intake & Output 03/07/21 03/08/21 03/08/21 18:59 06:59 18:59 Intake Total 900 240 120 Balance 900 240 120 Weight 40.6 kg Intake: Intake, IV Titration 900 Amount Sodium Chloride 0.9% 1, 900 000 ml @ 75 mls/hr IV . [id number] [facility] Rx#:[id number] Oral 240 120 Other: # Voids 3 2 - Labs CBC & Chem 7: 03/08/21 07:45 03/08/21 07:45 Labs: Abnormal Lab Results - Last 24 Hours (Table) 03/08/21 03/08/21 Range/Units 07:45 07:45 RBC 2.32 L (3.80-5.40) m/uL Hgb 7.1 L (11.4-16.0) gm/dL Hct 21.7 L (34.0-46.0) % RDW 16.7 H (11.5-15.5) % Lymphocytes # 0.8 L (1.0-4.8) k/uL Sodium 130 L (137-145) mmol/L Glucose 100 H (74-99) mg/dL Calcium 8.2 L (8.4-10.2) mg/dL AST 42 H (14-36) U/L Total Protein 4.8 L (6.3-8.2) g/dL Albumin 2.6 L (3.5-5.0) g/dL
--- NOTE | 2021-03-08 12:18 | P.CONS ---
History of Present Illness - Reason for Consult Consult date: 03/08/21 anemia Requesting physician: Florian Patricio - Chief Complaint Altered mental status changes - History of Present Illness This is a pleasant 85-year-old female who presented to the emergency department on 03/01/2021 for altered mental status changes. Patient apparently was at her primary care physician's office and having worsening confusion and was sent in for further evaluation as she has a history of metabolic encephalopathy. Her past medical history includes atrial fibrillation on Eliquis, bladder cancer, COPD, hyperlipidemia, hypertension, thyroid disorder. Apparently the patient came in with a hemoglobin of 10.4 and has been trending down. Today's hemoglob in was 7.1. There is 1 unit of PRBC transfusion ordered. The patient states she has scant to small amounts of rectal bleeding with bowel movements which she notes on the tissue only. States she has been dealing with constipation her entire life. States her bowel movements are very infrequent. She does not use stool softeners or laxatives on a regular basis. She denies any black stool or blood in her actual stool. She denies any history of peptic ulcer disease, she does take NSAIDs but very rarely, and no history of EGD. Her last colonoscopy she states was 5-10 years ago, she is not sure who performed colonoscopy or the findings. Her last dose of Eliquis was this morning. On this admission the patient underwent a nuclear Lexiscan stress test on 03/04/[address] depressions suggestive of ischemia in the lateral leads. Patient did not experience any chest pain during the scan and the radiologic aspect of the Lexiscan stress test does state that it is difficult to exclude pharmacologically induced left ventricular MRI. Cardiology did not feel patient needed to undergo a cardiac catheterization. The patient currently denies any abdominal pain, nausea, or vomiting. She denies any history of GERD. States she has had decreased appetite and some nausea. Review of Systems REVIEW OF SYSTEMS: CARDIOPULMONARY: No chest pain or shortness of breath. Gastrointestinal: No complaints of abdominal pain.. Mild nausea, no vomiting. Decreased appetite. No hematemesis, coffee-ground emesis. Rectal bleeding with bowel movement small amount bright red on tissue, denies any blood in her stool. GENITOURINARY: No dysuria or hematuria. MUSCULOSKELETAL: Reports normal range of motion., Joint pain. SKIN: No rashes. No jaundice. ENDOCRINE: No chills, fevers. No excessive weight gain or loss. No polydipsia or polyuria. PSYCHIATRIC: Unremarkable. NEUROLOGY: No change in mental status. Denies dizziness, headache. ENT: Vision unremarkable. CONSTITUTIONAL: No recent weight loss. No fever, chills, night sweats. Decreased appetite. 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 History of Any Multi-Drug Resistant Organisms: None Reported Past Surgical History: Adenoidectomy, Back Surgery, Bladder Surgery, Breast Surgery, Hysterectomy, Orthopedic Surgery, Tonsillectomy Additional Past Surgical History / Comment(s): R knee arthroscopic surgery, lumbar laminectomy, R rotator cuff repair, D&C, total hysterectomy, L arm melanoma excised, cystoscopy for instillation to burn bladder holder d/t bladder cancer, R breast benign bx, bilateral cataract removals, bilateral vein stripping, colonoscopy Past Anesthesia/Blood Transfusion Reactions: Postoperative Nausea & Vomiting (P ONV) Additional Past Anesthesia/Blood Transfusion Reaction / Comm: Pt has received blood in past without reaction. 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 Pt uses no assistive device. She drives. Smoking Status: Former smoker Past Alcohol Use History: None Reported Additional Past Alcohol Use History / Comment(s): Pt started smoking in 1956 and quit in 2017. Past Drug Use History: None Reported - Past Family History Mother Family Medical History: Cancer, Pneumonia, Respiratory Disorder Additional Family Medical History / Comment(s): TB, uterine cancer. Father Family Medical History: No Reported History Additional Family Medical History / Comment(s): Father was healthy. Medications and Allergies Home Medications Medication Instructions Recorded Confirmed Type Levothyroxine Sodium [Synthroid] 75 mcg PO DAILY 12/11/18 03/01/21 History Apixaban [Eliquis] 2.5 mg PO BID #60 tablet 12/13/18 03/01/21 Rx Atorvastatin [Lipitor] 40 mg PO HS #30 tab 12/13/18 03/01/21 Rx Albuterol Sulfate [Ventolin HFA] 2 puff INHALATION RT-QID PRN 05/19/19 03/01/21 History Levocetirizine Dihydrochloride 5 mg PO DAILY 05/19/19 03/01/21 History [Xyzal] Metoprolol Tartrate [Lopressor] 25 mg PO BID 05/19/19 03/01/21 History Lactulose 10 gm PO DAILY PRN 02/15/21 03/01/21 History Umeclidinium Brm/Vilanterol Tr 1 puff INHALATION RT-DAILY 02/15/21 03/01/21 History [Anoro Ellipta 62.5-25 Mcg INH] Isosorbide Mononitrate ER [Imdur] 30 mg PO DAILY 30 Days #30 tablet 02/17/21 03/01/21 Rx Losartan [Cozaar] 25 mg PO DAILY 30 Days #30 tab 02/17/21 03/01/21 Rx Acetaminophen Tab [Tylenol] 650 mg PO Q6HR PRN tab 02/18/21 03/01/21 Rx Nitroglycerin Sl Tabs [Nitrostat] 0.4 mg SUBLINGUAL Q5M PRN tab 02/18/21 Rx QUEtiapine [SEROquel] 12.5 mg PO HS PRN tab 02/18/21 03/01/21 Rx INSULIN LISPRO (humaLOG) [humaLOG] See Protocol PO DIRECTED 03/01/21 03/01/21 History Ipratropium Nebulized [Atrovent 0.5 mg INHALATION RT-QID PRN 03/01/21 03/01/21 History Nebulized 0.2 MG/ML] Omeprazole 20 mg PO DAILY 03/01/21 03/01/21 History Sertraline [Zoloft] 25 mg PO HS 03/01/21 03/01/21 History predniSONE See Taper PO DAILY 03/01/21 03/01/21 History Allergies Allergy/AdvReac Type Severity Reaction Status Date / Time azithromycin Allergy Unknown Verified 03/01/21 23:24 codeine Allergy Unknown Verified 03/01/21 23:24 mussels Allergy Unknown Verified 03/01/21 23:24 Sulfa (Sulfonamide Allergy Unknown Verified 03/01/21 23:24 Antibiotics) Physical Exam Vitals: Vital Signs Temp Pulse Resp BP BP Pulse Ox 03/08/21 06:57 97.8 F 77 18 163/65 94 L 03/08/21 04:43 98.2 F 76 16 160/63 90 L 03/07/21 20:43 98.2 F 76 16 148/63 91 L 03/07/21 12:49 98.7 F 61 16 91 L Intake and Output 03/07/21 03/08/21 03/08/21 22:59 06:59 14:59 Intake Total 900 240 Balance 900 240 Intake: Intake, IV Titration 900 Amount Sodium Chloride 0.9% 1, 900 000 ml @ 75 mls/hr IV . [id number] [facility] Rx#:[id number] Oral 240 Other: # Voids 3 2 General appearance: The patient is alert, oriented, appears in no acute distress. HET: Head is normocephalic and atraumatic. Conjunctiva pink. Sclera anicteric. Neck: Supple without lymphadenopathy. Trachea midline. Heart: S1 S2. Regular rate and rhythm. Lungs: Clear to auscultation. Abdomen: Soft, epigastric tenderness, nondistended with bowel sounds. No guarding or rigidity. Skin: No rashes. No jaundice. Extremities: Normal skin color and turgor. No pedal edema. Neurological: No focal deficits. Alert and oriented -3.. Results CBC & Chem 7: 03/08/21 07:45 03/08/21 07:45 Labs: Abnormal Lab Results - Last 24 Hours (Table) 03/07/21 03/08/21 03/08/21 Range/Units 05:58 07:45 07:45 RBC 2.32 L (3.80-5.40) m/uL Hgb 7.1 L (11.4-16.0) gm/dL Hct 21.7 L (34.0-46.0) % RDW 16.7 H (11.5-15.5) % Lymphocytes # 0.8 L (1.0-4.8) k/uL Sodium 133 L 130 L (135-145) mmol/L Creatinine 0.5 L (0.6-1.5) mg/dL BUN/Creatinine Ratio 37.25 H (12.00-20.00) Ratio Glucose 100 H (74-99) mg/dL Calcium 8.1 L 8.2 L (8.7-10.3) mg/dL AST 42 H (14-36) U/L Total Protein 4.8 L (6.3-8.2) g/dL Albumin 2.6 L (3.5-5.0) g/dL Assessment and Plan (1) Anemia Narrative/Plan: 85-year-old female who presented to the emergency department with complaints of altered mental status changes. Was found to have an initial hemoglobin of 10.4 which has subsequently been trending down since this admission and now is 7.1. 1 unit of PRBC transfusion was ordered. Patient has multiple comorbidities including atrial fibrillation on Eliquis with last dose taken this morning. Patient does state that she has had some bright red blood with wiping after her bowel movements. She has a lifelong history of chronic constipation. She does not take stool softeners or laxatives regularly. She denies any blood in her stool or black stool. Denies any history of peptic ulcer disease, GERD, or GI bleed. She's had no previous EGD and unsure of her last colonoscopy but believes it was greater than 5-10 years ago. Patient had iron studies on admission which were normal. She is presenting with a normocytic, normochromic anemia. Will reorder iron studies as well as discussed with patient recommendation to proceed with an upper and lower endoscopy to rule out a GI blood source. Current Visit: Yes Status: Acute Code(s): D64.9 - ANEMIA, UNSPECIFIED SNOMED Code(s): 314815854 (2) Altered mental status Current Visit: Yes Status: Acute Code(s): R41.82 - ALTERED MENTAL STATUS, UNSPECIFIED SNOMED Code(s): 183196286 (3) Hyponatremia Current Visit: Yes Status: Acute Code(s): E87.1 - HYPO-OSMOLALITY AND HYPONATREMIA SNOMED Code(s): 06785700 (4) Atrial fibrillation Current Visit: No Status: Acute Code(s): I48.91 - UNSPECIFIED ATRIAL FIBRILLATION SNOMED Code(s): 97248009 Plan: 1. Continue symptomatic and supportive care 2. Continue current medical management 3. Repeat iron studies 4. Daily CBC transfuse for hemoglobin less than 7 5. Continue Protonix for GI prophylaxis 6. Hold Eliquis for EGD and colonoscopy, will plan on Sunday Thank you for this consultation, we will continue to follow. Dr. Keyon Sams I agree with the dictator's note, documented as a scribe by Claire Hathaway.
--- NOTE | 2021-03-08 19:25 | P.PN ---
Subjective Progress Note Date: 03/08/21 Principal diagnosis: Altered mental status Chronic Hyponatremia Metabolic encephalopathy, multifactorial Abnormal stress tests Anemia unknown etiology 85-year-old female with significant medical history of paroxysmal atrial fibrillation, COPD with intermittent use of oxygen, hyperlipidemia, hypertension, hypothyroidism, history of bladder cancer treated with instillation, melanoma removed under left arm, anxiety, depression, memory impairment is admitted to the hospital for for acute on chronic altered mental status. She states over the last few weeks she has been noticing shades and shadows throughout the house, and unable to recall events that of taken place throughout the days. Patient had extensive diagnostic workup in the emergency department revealing hyponatremia with a sodium of 127. CBC within normal limits for patient's baseline. Chest x-ray emphysema lungs without acute changes. CT of the head without contrast, no acute changes noted. Consultation with neurology for altered mental status and memory impairment. Acute on chronic hyponatremia ordered additional labs. Will continue normal saline at 75 ML's an hour. 03/03/2021 Patient seen and examined at bedside. Patient resting comfortably in bed with no apparent acute signs of distress. She states her memory has improved during hospital stay. Patient able to answer questions appropriately with delayed response. Consultation with neurology for altered mental status, metabolic encephalopathy multifactorial, EEG was ordered and performed see dictation. Consultation with cardiology for intermittent dizziness, patient was recently admitted to the hospital with EKG changes in V5 and [address] depression, at that time patient opted for medical treatment. Patient denies fever, chills, shortness of breath, chest pain, palpitations, abdominal pain, nausea or vomiting at this time. Awaiting recommendations from cardiology and neurology. We'll continue to monitor electrolytes, sodium has increased to 132. 03/04/2021 to 03/07/2021 see hospitalist coverage 03/08/2021 Patient seen and examined at bedside. Patient resting comfortably in bed with no acute signs of distress. Patient has stress tests, revealing abnormal Lexiscan stress test suggestive of ischemia. Throughout hospital stay patient's hemoglobin and hematocrit have trended downward, cardiac catheterization was co nsidered by cardiology but due to significant drop in hemoglobin from 10.4 to 7.4, cardiac catheterization was on hold. Review diagnostic labs this a.m. patient's hemoglobin is 7.1, hematocrit 21.7, order for 1 unit of blood transfusion due to significant drop in hemoglobin and patient on anticoagulation therapy of Eliquis for paroxysmal atrial fibrillation. Consultation with gastroenterology for possible colonoscopy due to significant drop in hemoglobin throughout hospital stay. Patient denies fever, chills, shortness of breath at rest, chest pain, palpitations, abdominal pain, nausea or vomiting or diarrhea. Patient endorses exertional shortness of breath and mild intermittent dizziness. Objective - Vital Signs Vital signs: Vital Signs Temp 98.6 F 03/08/21 16:27 Pulse 77 03/08/21 16:27 Resp 16 03/08/21 16:27 BP 163/59 03/08/21 16:27 Pulse Ox 92 L 03/08/21 13:00 Intake & Output 03/08/21 03/08/21 03/09/21 06:59 18:59 06:59 Intake Total 240 550 Balance 240 550 Intake: Oral 240 240 Blood Product 310 Rc As-1 Unit 310 [id number] Other: # Voids 2 2 - Constitutional General appearance: Present: cooperative, no acute distress - EENT Eyes: Present: EOMI, PERRLA ENT: Present: hard of hearing, normal oropharynx - Neck Neck: Present: normal ROM Carotids: bilateral: upstroke normal Thyroid: bilateral: normal size - Respiratory Respiratory: bilateral: diminished (Anterior and posterior lung baca) - Cardiovascular Details: Normal sinus rhythm Heart rate: 74 Rhythm: regular Heart sounds: normal: S1, S2 - Peripheral pulses dorsalis pedis Peripheral Pulses: bilateral: Normal radial pulse Peripheral Pulses: bilateral: Normal - Gastrointestinal General gastrointestinal: Present: normal bowel sounds, soft - Integumentary Integumentary: Present: pale - Neurologic Neurologic: Present: CNII-XII intact - Musculoskeletal Musculoskeletal: Present: generalized weakness - Psychiatric Psychiatric: Present: A&O x's 3 - Allied health notes Allied health notes reviewed: nursing - Labs CBC & Chem 7: 03/08/21 07:45 03/08/21 07:45 Labs: Abnormal Lab Results - Last 24 Hours (Table) 03/08/21 03/08/21 03/08/21 Range/Units 07:45 07:45 10:19 RBC 2.32 L (3.80-5.40) m/uL Hgb 7.1 L (11.4-16.0) gm/dL Hct 21.7 L (34.0-46.0) % RDW 16.7 H (11.5-15.5) % Lymphocytes # 0.8 L (1.0-4.8) k/uL Sodium 130 L (137-145) mmol/L Glucose 100 H (74-99) mg/dL Calcium 8.2 L (8.4-10.2) mg/dL AST 42 H (14-36) U/L Total Protein 4.8 L (6.3-8.2) g/dL Albumin 2.6 L (3.5-5.0) g/dL Crossmatch See Detail Assessment and Plan Assessment: Acute on chronic hyponatremia Possible metabolic encephalopathy, multifactorial Anemia, unknown etiology Paroxysmal atrial fibrillation Hypertension Dyslipidemia COPD with intermittent use of oxygen History of bladder CA History of melanoma under left arm Anxiety Depression Nicotine dependence Memory impairment Orthopedic surgeries Full code Plan: Acute on chronic hyponatremia continue to monitor Change in mental status, acute metabolic encephalopathy, multifactor, present upon admission, at neurological baseline Abnormal stress tests, cardiac catheterization on hold due to trending downward of hemoglobin from 10.4-7.4 Anemia unknown etiology hemoglobin 7.1, order for transfuse with 1 unit of packed red blood cells; consultation with gastroenterology for possible colonoscopy due to significant drop of hemoglobin. Hold anticoagulation therapy Continue home medications Continue to monitor vital signs and diagnostic testing Further recommendations to come based on patient's clinical condition Time with Patient: Greater than 30
[2021-03-08] MEDS: SERTRALINE 25 MG TAB PO SCH (20:09)
[2021-03-08] MEDS: ATORVASTATIN 40 MG TAB PO SCH (20:09)
[2021-03-09] MEDS: LEVOTHYROXINE 75 MCG TAB PO SCH (05:35)
[2021-03-09 06:54] LABS: HCT 29.8 % (34.0-46.0); MCH 31.4 pg (25.0-35.0); MCHC 34.3 g/dL (31.0-37.0); MCV 91.6 fL (80.0-100.0); Platelet Count 195 k/uL (150-450); Poikilocytosis Slight; RBC 3.25 m/uL (3.80-5.40); WBC 9.4 k/uL (3.8-10.6)
[2021-03-09 06:56] LABS: ALT 31 U/L (4-34); AST 50 U/L (14-36); African American GFR (CKD) >90 (>60 ml/min/1.73 sqM); Albumin 2.9 g/dL (3.5-5.0); Albumin/Globulin Ratio 1.2; Alkaline Phosphatase 85 U/L (38-126); Anion Gap 6 mmol/L; Blood Urea Nitrogen 14 mg/dL (7-17); Calcium 8.4 mg/dL (8.4-10.2); Carbon Dioxide 26 mmol/L (22-30); Chloride 98 mmol/L (98-107); Globulin 2.4 g/dL; Glucose 108 mg/dL (74-99); Magnesium 1.6 mg/dL (1.6-2.3); Non-African American GFR(CKD) 88 (>60 ml/min/1.73 sqM); Potassium 3.2 mmol/L (3.5-5.1); Sodium 130 mmol/L (137-145); Total Bilirubin 1.8 mg/dL (0.2-1.3); Total Protein 5.3 g/dL (6.3-8.2)
[2021-03-09] MEDS: SYMBICORT 80-4.5 MCG INHALER INHALATION SCH ×2 (07:25→20:11)
[2021-03-09] MEDS: IPRATROPIUM 0.5 MG/2.5 ML NEBU INHALATION SCH ×4 (07:25→20:11)
[2021-03-09 07:38] LABS: HGB 10.2 gm/dL (11.4-16.0)
--- NOTE | 2021-03-09 07:45 | P.PN ---
Subjective Progress Note Date: 03/09/21 Principal diagnosis: Altered mental status Chronic Hyponatremia Metabolic encephalopathy, multifactorial Abnormal stress tests Anemia unknown etiology 85-year-old female with significant medical history of paroxysmal atrial fibrillation, COPD with intermittent use of oxygen, hyperlipidemia, hypertension, hypothyroidism, history of bladder cancer treated with instillation, melanoma removed under left arm, anxiety, depression, memory impairment is admitted to the hospital for for acute on chronic altered mental status. She states over the last few weeks she has been noticing shades and shadows throughout the house, and unable to recall events that of taken place throughout the days. Patient had extensive diagnostic workup in the emergency department revealing hyponatremia with a sodium of 127. CBC within normal limits for patient's baseline. Chest x-ray emphysema lungs without acute changes. CT of the head without contrast, no acute changes noted. Consultation with neurology for altered mental status and memory impairment. Acute on chronic hyponatremia ordered additional labs. Will continue normal saline at 75 ML's an hour. 03/03/2021 Patient seen and examined at bedside. Patient resting comfortably in bed with no apparent acute signs of distress. She states her memory has improved during hospital stay. Patient able to answer questions appropriately with delayed response. Consultation with neurology for altered mental status, metabolic encephalopathy multifactorial, EEG was ordered and performed see dictation. Consultation with cardiology for intermittent dizziness, patient was recently admitted to the hospital with EKG changes in V5 and [address] depression, at that time patient opted for medical treatment. Patient denies fever, chills, shortness of breath, chest pain, palpitations, abdominal pain, nausea or vomiting at this time. Awaiting recommendations from cardiology and neurology. We'll continue to monitor electrolytes, sodium has increased to 132. 03/04/2021 to 03/07/2021 see hospitalist coverage 03/08/2021 Patient seen and examined at bedside. Patient resting comfortably in bed with no acute signs of distress. Patient has stress tests, revealing abnormal Lexiscan stress test suggestive of ischemia. Throughout hospital stay patient's hemoglobin and hematocrit have trended downward, cardiac catheterization was co nsidered by cardiology but due to significant drop in hemoglobin from 10.4 to 7.4, cardiac catheterization was on hold. Review diagnostic labs this a.m. patient's hemoglobin is 7.1, hematocrit 21.7, order for 1 unit of blood transfusion due to significant drop in hemoglobin and patient on anticoagulation therapy of Eliquis for paroxysmal atrial fibrillation. Consultation with gastroenterology for possible colonoscopy due to significant drop in hemoglobin throughout hospital stay. Patient denies fever, chills, shortness of breath at rest, chest pain, palpitations, abdominal pain, nausea or vomiting or diarrhea. Patient endorses exertional shortness of breath and mild intermittent dizziness. 03/09/2021 Patient seen and examined at bedside. Patient resting in bed in no acute signs of distress. Patient received 1 unit of packed red blood cells yesterday for hemoglobin of 7.1, awaiting results on CBC this a.m. Holding anticoagulation therapy for paroxysmal atrial fibrillation at this time. Awaiting results from CBC and CMP this a.m. Patient endorses mild shortness of breath at rest and exertion, mid epigastric discomfort and intermittent dizziness. Patient denies fever, chills, chest discomfort, palpitations or diarrhea. Gastroenterology following patient for drop of hemoglobin from 10.4-7.1. Patient tentatively rescheduled for colonoscopy. Objective - Vital Signs Vital signs: Vital Signs Temp 98.1 F 03/09/21 05:00 Pulse 79 03/09/21 07:34 Resp 20 03/09/21 05:00 BP 182/75 03/09/21 07:34 Pulse Ox 92 L 03/09/21 05:00 Intake & Output 03/08/21 03/09/21 03/09/21 18:59 06:59 18:59 Intake Total 550 200 Balance 550 200 Intake: Oral 240 200 Blood Product 310 Rc As-1 Unit 310 [id number] Other: # Voids 2 4 - Constitutional General appearance: Present: cooperative, mild distress - EENT Eyes: Present: EOMI, PERRLA ENT: Present: hard of hearing - Neck Neck: Present: normal ROM Thyroid: bilateral: normal size - Respiratory Respiratory: bilateral: diminished (Anterior lung baca), rhonchi (Posterior bases ) - Cardiovascular Details: Sinus rhythm Heart rate: 84 Rhythm: regular Heart sounds: normal: S1, S2 - Peripheral pulses radial pulse Peripheral Pulses: bilateral: Normal dorsalis pedis Peripheral Pulses: bilateral: Normal - Gastrointestinal General gastrointestinal: Present: soft, tenderness Localized gastrointestinal: tender: epigastric periumbilical - Integumentary Integumentary: Present: decreased turgor, pale - Neurologic Neurologic: Present: CNII-XII intact - Musculoskeletal Musculoskeletal: Present: generalized weakness - Psychiatric Psychiatric: Present: A&O x's 3 - Allied health notes Allied health notes reviewed: nursing - Labs CBC & Chem 7: 03/08/21 07:45 03/09/21 05:54 Labs: Abnormal Lab Results - Last 24 Hours (Table) 03/08/21 03/08/21 03/08/21 Range/Units 07:45 07:45 10:19 RBC 2.32 L (3.80-5.40) m/uL Hgb 7.1 L (11.4-16.0) gm/dL Hct 21.7 L (34.0-46.0) % RDW 16.7 H (11.5-15.5) % Lymphocytes # 0.8 L (1.0-4.8) k/uL Sodium 130 L (137-145) mmol/L Potassium (3.5-5.1) mmol/L Creatinine (0.52-1.04) mg/dL Glucose 100 H (74-99) mg/dL Calcium 8.2 L (8.4-10.2) mg/dL Total Bilirubin (0.2-1.3) mg/dL AST 42 H (14-36) U/L Total Protein 4.8 L (6.3-8.2) g/dL Albumin 2.6 L (3.5-5.0) g/dL Crossmatch See Detail 03/09/21 Range/Units 05:54 RBC (3.80-5.40) m/uL Hgb (11.4-16.0) gm/dL Hct (34.0-46.0) % RDW (11.5-15.5) % Lymphocytes # (1.0-4.8) k/uL Sodium 130 L (137-145) mmol/L Potassium 3.2 L (3.5-5.1) mmol/L Creatinine 0.51 L (0.52-1.04) mg/dL Glucose 108 H (74-99) mg/dL Calcium (8.4-10.2) mg/dL Total Bilirubin 1.8 H (0.2-1.3) mg/dL AST 50 H (14-36) U/L Total Protein 5.3 L (6.3-8.2) g/dL Albumin 2.9 L (3.5-5.0) g/dL Crossmatch Assessment and Plan Assessment: Acute on chronic hyponatremia Possible metabolic encephalopathy, multifactorial Anemia, unknown etiology Paroxysmal atrial fibrillation Hypertension Dyslipidemia COPD with intermittent use of oxygen History of bladder CA History of melanoma under left arm Anxiety Depression Nicotine dependence Memory impairment Orthopedic surgeries Full code Plan: Acute on chronic hyponatremia continue to monitor Change in mental status, acute metabolic encephalopathy, multifactor, present upon admission, at neurological baseline Abnormal stress tests, cardiac catheterization on hold due to trending downward of hemoglobin from 10.4-7.4 Anemia unknown etiology hemoglobin 7.1, order for transfuse with 1 unit of packed red blood cells; consultation with gastroenterology for possible colonoscopy due to significant drop of hemoglobin. Hold anticoagulation therapy Continue home medications Continue to monitor vital signs and diagnostic testing Further recommendations to come based on patient's clinical condition Time with Patient: Greater than 30
[2021-03-09 08:57] LABS: % Iron Saturation 3.97 (12.00-45.00)
[2021-03-09] MEDS: LOSARTAN 25 MG TAB PO SCH (08:58)
[2021-03-09] MEDS: PANTOPRAZOLE 40 MG TABLET PO SCH (08:58)
[2021-03-09] MEDS: MAGNESIUM OXIDE 400 MG TAB PO SCH ×2 (08:59→20:35)
[2021-03-09] MEDS: amLODIPine 5 MG TAB PO SCH (08:59)
[2021-03-09] MEDS: METOPROLOL TARTRATE 25 MG TAB PO SCH ×2 (08:59→20:35)
[2021-03-09] MEDS: POTASSIUM CHLORIDE ER 20 MEQ TAB.ER PO SCH ×2 (08:59→09:48)
[2021-03-09] MEDS: ISOSORBIDE MONONITRATE ER 30 MG TAB.ER.24H PO SCH (09:48)
--- NOTE | 2021-03-09 09:57 | US ---
EXAMINATION TYPE: US gallbladder DATE OF EXAM: 03/09/2021 COMPARISON: US, CT CLINICAL HISTORY: RUQ pain, elevated BILI. RUQ pain, elevated BILI per order. EXAM MEASUREMENTS: Liver Length: 10.7 cm Gallbladder Wall: 0.21 cm CBD: 0.62 cm Right Kidney: 10.6 x 5.0 x 3.6 cm Limited due to gas. Pancreas: Limited by bowel gas. Liver: Appears coarse in echotexture. Gallbladder: Fold seen, appears anechoic. Evidence for sonographic Hope's sign: No CBD: Measures upper limits of normal. Right Kidney: Dilated renal pelvis. Anechoic area seen lower pole: 1.5 x 1.1 x 1.1 cm. Anechoic area seen mid pole: 1.0 x 0.9 x 0.6 cm. Hyperechoic focus seen: 0.3 x 0.3 x 0.2 cm. IMPRESSION: 1. Coarsened echo pattern to the liver is nonspecific could be seen with hepatocellular disease, hepa titis or hepatic steatosis. 2. No gallstones. 3. Mildly prominent renal pelvis could represent an extrarenal pelvis. Suspected too small to charact erize renal lesions represent renal cysts. Nonobstructing 3 mm right renal calculus.
--- NOTE | 2021-03-09 11:12 | XR ---
EXAMINATION TYPE: XR abdomen acute w cxr DATE OF EXAM: 03/09/2021 COMPARISON: 02/18/2021, 01/05/2021 HISTORY: Shortness of breath TECHNIQUE: Supine, upright, and left side down lateral decubitus views of the abdomen are obtained. FINDINGS: Hyperinflation compatible COPD with suspected chronic interstitial lung disease. Calcified nodular granuloma left lung base. Bibasilar infiltrate. Heart size stable. No overt failure. Biapical pleural thickening. Atherosclerotic change aorta. Diffuse osteopenia. Vague right basilar nodule jaida suring 1 cm. Hypertrophic and degenerative change of the spine. Retained fecal debris throughout the colon. Arthro travis of the hips. Calcified granuloma left upper quadrant suspected. No definite renal calcification s. IMPRESSION: 1. COPD with basilar infiltrate and left lower lobe granuloma. Vague nodule right lower lobe possibly nipple shadow recommend short-term follow-up with nipple markers. Calcified granuloma left lower lob e. 2. Nonspecific abdomen correlate for constipation.
[2021-03-09 13:37] LABS: Eosinophils # (M) 0.19 k/uL (0-0.7); Lymphocytes # (M) 0.47 k/uL (1.0-4.8); Monocytes # (M) 0.66 k/uL (0-1.0); Neutrophils # (M) 8.08 k/uL (1.3-7.7); Neutrophils % (M) 86 %; Nucleated Red Blood Cells 0 /100 WBC (0-0); Total Cells Counted 100
--- NOTE | 2021-03-09 16:16 | P.PN ---
Subjective Progress Note Date: 03/09/21 Principal diagnosis: Anemia 85-year-old female who presented to the emergency department with complaints of altered mental status changes. Patient was seen and examined this morning. On admission patient was noted to have a hemoglobin of 10.4 which had been trending down and was 7.1 yesterday. She received 1 unit of PRBC transfusion and her hemoglobin today is at 10.4. Patient states that she has had scant amounts of rectal bleeding with bowel movements which she notes on her tissue only. This is been intermittent. She's been dealing with constipation her entire life. Her bowel movements are infrequent. She does not use regular stool softeners or laxatives. She denies any previous history of peptic ulcer disease, regular use of NSAIDs, and no previous EGD. Patient was taking Eliquis for atrial fibrillation with her last dose yesterday morning. She's had a colonoscopy which she states was several years ago and she is unsure of those findings. The patient is scheduled for EGD and colonoscopy on Sunday. Eliquis is currently on hold. Patient is pleasantly confused today. He is with complaints of some right upper quadrant and epigastric tenderness. She denies any nausea or vomiting. She's been afebrile. He did have some elevation today and her total bilirubin went up to 1.8 from 0.7, AST 50 ALT 31 alkaline phosphatase 85. Iron studies were consistent with an iron deficiency anemia. Ultrasound of the liver ordered showing coarsened echo pattern to the liver is nonspecific and could be seen with hepatocellular disease, hepatitis or hepatic steatosis. No gallstones. Mildly prominent renal pelvis could represent extrarenal pelvis. Suspected to small to characterize renal lesions represent renal cysts. Nonobstructing 3 mm right renal calculus. CBD measuring 0.62 cm Objective - Vital Signs Vital signs: Vital Signs Temp 99 F 03/09/21 12:41 Pulse 73 03/09/21 13:27 Resp 19 03/09/21 13:27 BP 146/65 03/09/21 13:27 Pulse Ox 90 L 03/09/21 13:27 Intake & Output 03/08/21 03/09/21 03/09/21 18:59 06:59 18:59 Intake Total 550 200 Balance 550 200 Intake: Oral 240 200 Blood Product 310 Rc As-1 Unit 310 [id number] Other: # Voids 2 4 - Exam General appearance: The patient is alert, oriented, appears in no acute distress. HET: Head is normocephalic and atraumatic. Conjunctiva pink. Sclera anicteric. Neck: Supple without lymphadenopathy. Abdomen: Soft, right upper quadrant and epigastric tenderness, nondistended with bowel sounds. No guarding or rigidity. Extremities: Normal skin color and turgor. No pedal edema Skin: No rashes, no jaundice Neurological: No focal deficits. Alert and oriented -3. - Labs CBC & Chem 7: 03/09/21 05:54 03/09/21 05:54 Labs: Abnormal Lab Results - Last 24 Hours (Table) 03/08/21 03/08/21 03/09/21 Range/Units 10: 10: 05:54 RBC 3.25 L (3.80-5.40) m/uL Hgb 10.2 L D (11.4-16.0) gm/dL Hct 29.8 L (34.0-46.0) % RDW 16.0 H (11.5-15.5) % Neutrophils # (Manual) 8.08 H (1.3-7.7) k/uL Lymphocytes # (Manual) 0.47 L (1.0-4.8) k/uL Sodium (137-145) mmol/L Potassium (3.5-5.1) mmol/L Creatinine (0.52-1.04) mg/dL Glucose (74-99) mg/dL Iron 14 L (50-170) ug/dL % Saturation 3.97 L (12.00-45.00) Total Bilirubin (0.2-1.3) mg/dL AST (14-36) U/L Total Protein (6.3-8.2) g/dL Albumin (3.5-5.0) g/dL Crossmatch See Detail 03/09/21 Range/Units 05:54 RBC (3.80-5.40) m/uL Hgb (11.4-16.0) gm/dL Hct (34.0-46.0) % RDW (11.5-15.5) % Neutrophils # (Manual) (1.3-7.7) k/uL Lymphocytes # (Manual) (1.0-4.8) k/uL Sodium 130 L (137-145) mmol/L Potassium 3.2 L (3.5-5.1) mmol/L Creatinine 0.51 L (0.52-1.04) mg/dL Glucose 108 H (74-99) mg/dL Iron (50-170) ug/dL % Saturation (12.00-45.00) Total Bilirubin 1.8 H (0.2-1.3) mg/dL AST 50 H (14-36) U/L Total Protein 5.3 L (6.3-8.2) g/dL Albumin 2.9 L (3.5-5.0) g/dL Crossmatch Assessment and Plan (1) Anemia Narrative/Plan: 85-year-old female who presented to the emergency department with complaints of altered mental status changes. Was found to have an initial hemoglobin of 10.4 which has subsequently been trending down since this admission and now is 7.1. 1 unit of PRBC transfusion was ordered. Patient has multiple comorbidities including atrial fibrillation on Eliquis with last dose taken this morning. Patient does state that she has had some bright red blood with wiping after her bowel movements. She has a lifelong history of chronic constipation. She does not take stool softeners or laxatives regularly. She denies any blood in her stool or black stool. Denies any history of peptic ulcer disease, GERD, or GI bleed. She's had no previous EGD and unsure of her last colonoscopy but believes it was greater than 5-10 years ago. Patient had iron studies on admission which were normal. She is presenting with a normocytic, normochromic anemia. Will reorder iron studies as well as discussed with patient recommen dation to proceed with an upper and lower endoscopy to rule out a GI blood source. Iron studies ordered and consistent with iron deficiency anemia. Current Visit: Yes Status: Acute Code(s): D64.9 - ANEMIA, UNSPECIFIED SNOMED Code(s): 801469200 (2) Epigastric abdominal pain Narrative/Plan: Gallbladder ultrasound ordered. Showing coarsened echo pattern of the liver that could be seen with hepatocellular disease, hepatitis or hepatic state ptosis. No gallstones and no CBD dilation. Current Visit: Yes Status: Acute Code(s): R10.13 - EPIGASTRIC PAIN SNOMED Code(s): 83378011 (3) Altered mental status Current Visit: Yes Status: Acute Code(s): R41.82 - ALTERED MENTAL STATUS, UNSPECIFIED SNOMED Code(s): 732629707 (4) Hyponatremia Current Visit: Yes Status: Acute Code(s): E87.1 - HYPO-OSMOLALITY AND HYPONATREMIA SNOMED Code(s): 52708362 (5) Atrial fibrillation Current Visit: No Status: Acute Code(s): I48.91 - UNSPECIFIED ATRIAL FIBRILLATION SNOMED Code(s): 40258939 Plan: 1. Continue symptomatic and supportive care 2. Continue current medical management 3. Daily CBC transfuse for hemoglobin less than 7 4. Continue Protonix for GI prophylaxis 5. Gallbladder ultrasound ordered 6. Repeat CMP 7. Hold Eliquis for EGD and colonoscopy, will plan on Sunday Thank you for this consultation, we will continue to follow. Dr. Keyon Sams I agree with the dictator's note, documented as a scribe by Claire Hathaway.
--- NOTE | 2021-03-09 16:20 | XR ---
EXAM TYPE: LUMBAR SPINE X RAY SERIES COMPARISON: NONE HISTORY: Pain TECHNIQUE: 3 views are submitted. FINDINGS: Alignment is anatomic. The pedicles are intact. The transverse processes are intact. Diffuse osteop enia. No definite compression deformities. Degenerative disc disease L4-5 and L5-S1 with facet arthro travis. IMPRESSION: 1. Diffuse osteopenia and multilevel degenerative disc disease.
--- NOTE | 2021-03-09 16:21 | XR ---
EXAMINATION TYPE: XR thoracic spine 2V DATE OF EXAM: 03/09/2021 COMPARISON: NONE HISTORY: Pain TECHNIQUE: 3 views submitted FINDINGS: Alignment is anatomic. There is no compression deformities. Vertebral body height and disc interspa duncan are maintained. Diffuse osteopenia with multilevel degenerative disc disease. There may be a mil d superior endplate compression deformity of T12 of indeterminate age. IMPRESSION: 1. Question of mild superior endplate compression fracture T12 indeterminate age correlate with CT sc an as clinically warranted..
--- NOTE | 2021-03-09 17:06 | CT ---
EXAMINATION TYPE: CT brain cspine wo con DATE OF EXAM: 03/09/2021 COMPARISON: CT brain 03/01/2021 HISTORY: fall, trauma and pain CT DLP: 1263.5 mGycm Automated exposure control for dose reduction was used. TECHNIQUE: CT scan of the head and cervical spine are performed without contrast. FINDINGS: There is no acute intracranial hemorrhage, mass effect, or midline shift identified. The ventricles and sulci are within normal limits in size. Stable age-related changes of atrophy and pro bable chronic small vessel ischemia, periventricular white matter low-attenuation The globes are inta ct and the visualized sinuses are clear. Cervical spine is visualized in its entirety from C1 through upper thoracic levels and demonstrates s atisfactory alignment without evidence of acute fracture or dislocation. Prevertebral soft tissue ap pears within normal limits. The C1-C2 articulation is unremarkable. Extensive emphysematous changes present at the upper lobes. Degenerative disc changes are present visualized spine, multilevel facet arthropathy, foraminal encroachment is noted due to uncovertebral joint hypertrophy and facet arthrop athy especially at C6-7 IMPRESSION: 1. There is no acute fracture or dislocation evident in the cervical spine. 2. No acute intracranial hemorrhage, mass effect, or midline shift is seen.
[2021-03-09] MEDS: ACETAMINOPHEN TAB 325 MG TAB PO PRN (19:20)
[2021-03-09] MEDS: SERTRALINE 25 MG TAB PO SCH (20:35)
[2021-03-09] MEDS: ATORVASTATIN 40 MG TAB PO SCH (20:35)
[2021-03-10] MEDS: LEVOTHYROXINE 75 MCG TAB PO SCH (06:00)
[2021-03-10] MEDS: ACETAMINOPHEN TAB 325 MG TAB PO PRN ×2 (06:07→17:39)
[2021-03-10] MEDS ORDERED: FUROSEMIDE 10 MG/ML 2 ML VIAL IV ONE (07:29)
[2021-03-10] MEDS: IPRATROPIUM 0.5 MG/2.5 ML NEBU INHALATION SCH ×4 (07:38→19:24)
[2021-03-10] MEDS: SYMBICORT 80-4.5 MCG INHALER INHALATION SCH ×2 (07:38→19:23)
[2021-03-10 07:47] LABS: Basophils % (A) 0 %; Eosinophils % (A) 1 %; HCT 30.2 % (34.0-46.0); HGB 10.2 gm/dL (11.4-16.0); Lymphocytes # (A) 0.5 k/uL (1.0-4.8); Lymphocytes % (A) 6 %; MCH 31.5 pg (25.0-35.0); MCHC 33.8 g/dL (31.0-37.0); MCV 93.3 fL (80.0-100.0); Mean Platelet Volume 7.4; Monocytes # (A) 0.5 k/uL (0-1.0); Monocytes % (A) 6 %; Neutrophils # (A) 7.4 k/uL (1.3-7.7); Neutrophils % (A) 87 %; Platelet Count 208 k/uL (150-450); Poikilocytosis Slight; RBC 3.24 m/uL (3.80-5.40); RDW 15.6 % (11.5-15.5); WBC 8.5 k/uL (3.8-10.6)
[2021-03-10 07:52] LABS: ALT 32 U/L (4-34); AST 46 U/L (14-36); African American GFR (CKD) >90 (>60 ml/min/1.73 sqM); Albumin 3.2 g/dL (3.5-5.0); Albumin/Globulin Ratio 1.3; Alkaline Phosphatase 90 U/L (38-126); Anion Gap 6 mmol/L; Blood Urea Nitrogen 13 mg/dL (7-17); Calcium 8.6 mg/dL (8.4-10.2); Carbon Dioxide 24 mmol/L (22-30); Chloride 98 mmol/L (98-107); Globulin 2.4 g/dL; Glucose 101 mg/dL (74-99); Magnesium 1.7 mg/dL (1.6-2.3); Non-African American GFR(CKD) >90 (>60 ml/min/1.73 sqM); Potassium 3.7 mmol/L (3.5-5.1); Sodium 128 mmol/L (137-145); Total Bilirubin 1.4 mg/dL (0.2-1.3); Total Protein 5.6 g/dL (6.3-8.2)
[2021-03-10] MEDS: PANTOPRAZOLE 40 MG TABLET PO SCH (08:30)
[2021-03-10] MEDS: amLODIPine 5 MG TAB PO SCH (08:30)
[2021-03-10] MEDS: METOPROLOL TARTRATE 25 MG TAB PO SCH ×2 (08:30→20:35)
[2021-03-10] MEDS: ISOSORBIDE MONONITRATE ER 30 MG TAB.ER.24H PO SCH (08:31)
[2021-03-10] MEDS: MAGNESIUM OXIDE 400 MG TAB PO SCH ×2 (08:31→20:42)
[2021-03-10] MEDS: SODIUM CHLORIDE TAB 1 GM TAB PO SCH ×2 (08:31→20:35)
[2021-03-10] MEDS: LOSARTAN 25 MG TAB PO SCH (08:31)
[2021-03-10] MEDS ORDERED: POTASSIUM CHLORIDE ER 20 MEQ TAB.ER PO SCH (12:00)
[2021-03-10] MEDS ORDERED: PEG 3350-NA SULF,BICARB,CL/KCL 4,000 ML BOTTLE PO ONE (17:00)
--- NOTE | 2021-03-10 17:36 | P.PN ---
Subjective Progress Note Date: 03/10/21 Principal diagnosis: Anemia 85-year-old female who presented to the emergency department with complaints of altered mental status changes. Patient was seen and examined this morning. On admission patient was noted to have a hemoglobin of 10.4 which had been trending down and was 7.1 yesterday. She received 1 unit of PRBC transfusion and her hemoglobin today is at 10.4. Patient states that she has had scant amounts of rectal bleeding with bowel movements which she notes on her tissue only. This is been intermittent. She's been dealing with constipation her entire life. Her bowel movements are infrequent. She does not use regular stool softeners or laxatives. She denies any previous history of peptic ulcer disease, regular use of NSAIDs, and no previous EGD. Patient was taking Eliquis for atrial fibrillation with her last dose yesterday morning. She's had a colonoscopy which she states was several years ago and she is unsure of those findings. The patient is scheduled for EGD and colonoscopy on Sunday. Eliquis is currently on hold. Patient is pleasantly confused today. He is with complaints of some right upper quadrant and epigastric tenderness. She denies any nausea or vomiting. She's been afebrile. Apparently yesterday she had a fall. Hemog lobin remained stable at 10.2. Total bilirubin 1.4 AST 46 ALT 32 alk phos 40 9D. Ultrasound of the gallbladder showed a coarsened echo pattern of the liver are nonspecific could be seen with hepatocellular disease hepatitis or hepatic steatosis. No gallstones and CBD within normal limits at 0.62 cm. Plan is for patient to undergo EGD and colonoscopy tomorrow. Objective - Vital Signs Vital signs: Vital Signs Temp 98.1 F 03/10/21 05:00 Pulse 80 03/10/21 08:40 Resp 20 03/10/21 05:00 BP 168/70 03/10/21 08:40 Pulse Ox 91 L 03/10/21 05:00 Intake & Output 03/09/21 03/10/21 03/10/21 18:59 06:59 18:59 Intake Total 100 Balance 100 Intake: Oral 100 Other: Voiding Method Toilet # Voids 1 1 - Exam General appearance: The patient is alert, oriented, appears in no acute distress. HET: Head is normocephalic and atraumatic. Conjunctiva pink. Sclera anicteric. Neck: Supple without lymphadenopathy. Abdomen: Soft, right upper quadrant and epigastric tenderness, nondistended with bowel sounds. No guarding or rigidity. Extremities: Normal skin color and turgor. No pedal edema Skin: No rashes, no jaundice Neurological: No focal deficits. Alert and oriented -3. - Labs CBC & Chem 7: 03/10/21 07:09 03/10/21 07:09 Labs: Abnormal Lab Results - Last 24 Hours (Table) 03/09/21 03/10/21 03/10/21 Range/Units 05:54 07:09 07:09 RBC 3.24 L (3.80-5.40) m/uL Hgb 10.2 L (11.4-16.0) gm/dL Hct 30.2 L (34.0-46.0) % RDW 15.6 H (11.5-15.5) % Neutrophils # (Manual) 8.08 H (1.3-7.7) k/uL Lymphocytes # 0.5 L (1.0-4.8) k/uL Lymphocytes # (Manual) 0.47 L (1.0-4.8) k/uL Sodium 128 L (137-145) mmol/L Creatinine 0.46 L (0.52-1.04) mg/dL Glucose 101 H (74-99) mg/dL Total Bilirubin 1.4 H (0.2-1.3) mg/dL AST 46 H (14-36) U/L Total Protein 5.6 L (6.3-8.2) g/dL Albumin 3.2 L (3.5-5.0) g/dL Assessment and Plan (1) Anemia Narrative/Plan: 85-year-old female who presented to the emergency department with complaints of altered mental status changes. Was found to have an initial hemoglobin of 10.4 which has subsequently been trending down since this admission and now is 7.1. 1 unit of PRBC transfusion was ordered. Patient has multiple comorbidities including atrial fibrillation on Eliquis with last dose taken this morning. Patient does state that she has had some bright red blood with wiping after her bowel movements. She has a lifelong history of chronic constipation. She does not take stool softeners or laxatives regularly. She denies any blood in her stool or black stool. Denies any history of peptic ulcer disease, GERD, or GI bleed. She's had no previous EGD and unsure of her last colonoscopy but believes it was greater than 5-10 years ago. Patient had iron studies on admission which were normal. She is presenting with a normocytic, normochromic anemia. Will reorder iron studies as well as discussed with patient recommendation to proceed with an upper and lower endoscopy to rule out a GI blood source. Iron studies ordered and consistent with iron deficiency anemia. Current Visit: Yes Status: Acute Code(s): D64.9 - ANEMIA, UNSPECIFIED SNOMED Code(s): 028827298 (2) Epigastric abdominal pain Narrative/Plan: Gallbladder ultrasound ordered. Showing coarsened echo pattern of the liver that could be seen with hepatocellular disease, hepatitis or hepatic state ptosis. No gallstones and no CBD dilation. Current Visit: Yes Status: Acute Code(s): R10.13 - EPIGASTRIC PAIN SNOMED Code(s): 63876131 (3) Altered mental status Current Visit: Yes Status: Acute Code(s): R41.82 - ALTERED MENTAL STATUS, UNSPECIFIED SNOMED Code(s): 888866175 (4) Hyponatremia Current Visit: Yes Status: Acute Code(s): E87.1 - HYPO-OSMOLALITY AND HYPONATREMIA SNOMED Code(s): 61865323 (5) Atrial fibrillation Current Visit: No Status: Acute Code(s): I48.91 - UNSPECIFIED ATRIAL FIBRILLATION SNOMED Code(s): 91550606 Plan: 1. Continue symptomatic and supportive care 2. Clear liquid diet, nothing by mouth after midnight 3. Daily CBC transfuse for hemoglobin less than 7 4. Continue Protonix for GI prophylaxis 5. Gallbladder ultrasound ordered and reviewed 6. Repeat CMP 7. Hold Eliquis for EGD and colonoscopy, please obtain consent from patient is alert and oriented 3 otherwise will need to obtain consent from family Thank you for this consultation, we will continue to follow. Dr. Keyon Sams I agree with the dictator's note, documented as a scribe by Claire Hathaway.
--- NOTE | 2021-03-10 18:10 | P.PN ---
Subjective Progress Note Date: 03/10/21 Principal diagnosis: Altered mental status Chronic Hyponatremia Metabolic encephalopathy, multifactorial, secondary to hyponatremia Abnormal stress tests Anemia unknown etiology 85-year-old female with significant medical history of paroxysmal atrial fibrillation, COPD with intermittent use of oxygen, hyperlipidemia, hypertension, hypothyroidism, history of bladder cancer treated with instillation, melanoma removed under left arm, anxiety, depression, memory impairment is admitted to the hospital for for acute on chronic altered mental status. She states over the last few weeks she has been noticing shades and shadows throughout the house, and unable to recall events that of taken place throughout the days. Patient had extensive diagnostic workup in the emergency department revealing hyponatremia with a sodium of 127. CBC within normal limits for patient's baseline. Chest x-ray emphysema lungs without acute changes. CT of the head without contrast, no acute changes noted. Consultation with neurology for altered mental status and memory impairment. Acute on chronic hyponatremia ordered additional labs. Will continue normal saline at 75 ML's an hour. 03/03/2021 Patient seen and examined at bedside. Patient resting comfortably in bed with no apparent acute signs of distress. She states her memory has improved during hospital stay. Patient able to answer questions appropriately with delayed response. Consultation with neurology for altered mental status, metabolic encephalopathy multifactorial, EEG was ordered and performed see dictation. Consultation with cardiology for intermittent dizziness, patient was recently admitted to the hospital with EKG changes in V5 and [address] depression, at that time patient opted for medical treatment. Patient denies fever, chills, shortness of breath, chest pain, palpitations, abdominal pain, nausea or vomiting at this time. Awaiting recommendations from cardiology and neurology. We'll continue to monitor electrolytes, sodium has increased to 132. 03/04/2021 to 03/07/2021 see hospitalist coverage 03/08/2021 Patient seen and examined at bedside. Patient resting comfortably in bed with no acute signs of distress. Patient has stress tests, revealing abnormal Lexiscan stress test suggestive of ischemia. Throughout hospital stay patient's hemoglobin and hematocrit have trended downward, cardiac catheterization was considered by cardiology but due to significant drop in hemoglobin from 10.4 to 7.4, cardiac catheterization was on hold. Review diagnostic labs this a.m. patient's hemoglobin is 7.1, hematocrit 21.7, order for 1 unit of blood transfusion due to significant drop in hemoglobin and patient on anticoagulation therapy of Eliquis for paroxysmal atrial fibrillation. Consultation with gastroenterology for possible colonoscopy due to significant drop in hemoglobin throughout hospital stay. Patient denies fever, chills, shortness of breath at rest, chest pain, palpitations, abdominal pain, nausea or vomiting or diarrhea. Patient endorses exertional shortness of breath and mild intermittent dizziness. 03/09/2021 Patient seen and examined at bedside. Patient resting in bed in no acute signs of distress. Patient received 1 unit of packed red blood cells yesterday for hemoglobin of 7.1, awaiting results on CBC this a.m. Holding anticoagulation therapy for paroxysmal atrial fibrillation at this time. Awaiting results from CBC and CMP this a.m. Patient endorses mild shortness of breath at rest and exertion, mid epigastric discomfort and intermittent dizziness. Patient denies fever, chills, chest discomfort, palpitations or diarrhea. Gastroenterology following patient for drop of hemoglobin from 10.4-7.1. Patient tentatively rescheduled for colonoscopy. 03/10/2021 Patient seen and examined at bedside. Patient resting comfortably in bed. Patient had an episode on 03/09/2021 of a fall with impact to the floor with head, neck, and back discomfort. Patient has CT of the head and neck without contrast no acute abnormalities noted, x-ray of the T-spine with question of mild superior endplate compression fracture of T12 intermittent age noted, L-spine x-ray with diffuse osteopenia and multi leveled degenerative disc disease. Evaluated patient this a.m. alert and oriented 3. Patient endorses shortness of breath at rest, exertional shortness of breath, and generalized weakness. Patient's hemoglobin after 1 unit of packed red blood cells fernandez sfusion increase from 7.1-10.2. Order for Lasix IV push 10 mg. Review of electrolytes sodium 128-sodium chloride 1 g by mouth twice a day, potassium 3.7 chloride 98; total bilirubin 1.4 AST 46; Pro calcitonin -0.06. Objective - Vital Signs Vital signs: Vital Signs Temp 97.9 F 03/10/21 11:40 Pulse 82 03/10/21 16:03 Resp 18 03/10/21 11:40 BP 120/44 03/10/21 11:40 Pulse Ox 90 L 03/10/21 11:40 Intake & Output 1003/10/21 03/10/21 18:59 06:59 18:59 Intake Total 100 Balance 100 Weight 40.6 kg Intake: Oral 100 Other: Voiding Method Toilet # Voids 1 1 - Constitutional General appearance: Present: cooperative, mild distress - EENT Eyes: Present: EOMI, PERRLA ENT: Present: hard of hearing, normal oropharynx Ears: bilateral: normal - Neck Neck: Present: normal ROM Carotids: bilateral: upstroke normal Thyroid: bilateral: normal size - Respiratory Respiratory: bilateral: diminished (Anterior and posterior lung baca), rales (Right lower posterior base) - Cardiovascular Details: Normal sinus rhythm Heart rate: 74 Rhythm: regular Heart sounds: normal: S1, S2 - Peripheral pulses radial pulse Peripheral Pulses: bilateral: Normal dorsalis pedis Peripheral Pulses: bilateral: Normal - Gastrointestinal General gastrointestinal: Present: normal bowel sounds, soft - Integumentary Integumentary: Present: decreased turgor, pale - Neurologic Neurologic: Present: CNII-XII intact - Musculoskeletal Musculoskeletal: Present: generalized weakness - Psychiatric Psychiatric Comment(s): Delayed response Psychiatric: Present: A&O x's 3 - Allied health notes Allied health notes reviewed: nursing - Labs CBC & Chem 7: 03/10/21 07:09 03/10/21 07:09 Labs: Abnormal Lab Results - Last 24 Hours (Table) 03/10/21 03/10/21 Range/Units 07:09 07:09 RBC 3.24 L (3.80-5.40) m/uL Hgb 10.2 L (11.4-16.0) gm/dL Hct 30.2 L (34.0-46.0) % RDW 15.6 H (11.5-15.5) % Lymphocytes # 0.5 L (1.0-4.8) k/uL Sodium 128 L (137-145) mmol/L Creatinine 0.46 L (0.52-1.04) mg/dL Glucose 101 H (74-99) mg/dL Total Bilirubin 1.4 H (0.2-1.3) mg/dL AST 46 H (14-36) U/L Total Protein 5.6 L (6.3-8.2) g/dL Albumin 3.2 L (3.5-5.0) g/dL - Imaging and Cardiology Chest x-ray: report reviewed CT scan - chest: report reviewed Assessment and Plan Assessment: Acute on chronic hyponatremia Possible metabolic encephalopathy, multifactorial, secondary to hyponatremia Anemia, unknown etiology Paroxysmal atrial fibrillation Hypertension Dyslipidemia COPD with intermittent use of oxygen History of bladder CA History of melanoma under left arm Anxiety Depression Nicotine dependence Memory impairment Orthopedic surgeries Full code Plan: Acute on chronic hyponatremia, sodium level 128, will add sodium chloride 1 g by mouth twice a day Change in mental status, acute metabolic encephalopathy, multifactor, present upon admission, at neurological baseline Pulmonary congestion after 1 unit of packed red blood cells one-time order of Lasix 10 mg IV push Abnormal stress tests, follow-up with cardiology on outpatient basis Anemia unknown etiology after 1 unit of packed red blood cells hemoglobin has stabilized to 10.2, gastroenterology will be prepping patient Hold anticoagulation therapy Continue home medications Continue to monitor vital signs and diagnostic testing Further recommendations to come based on patient's clinical condition Time with Patient: Greater than 30
[2021-03-10] MEDS: SERTRALINE 25 MG TAB PO SCH (20:35)
[2021-03-10] MEDS: ATORVASTATIN 40 MG TAB PO SCH (20:35)
[2021-03-11] MEDS ORDERED: IV FLUID CONTINUATION 900 ML IV ONE ×2 (06:48)
[2021-03-11] MEDS ORDERED: PROPOFOL 10 MG/ML 20 ML VIAL IV ONE (06:48)
[2021-03-11] MEDS ORDERED: LIDOCAINE 1% INJ 10MG/ML (20 ML MDV) ONE (06:48)
[2021-03-11 07:01] LABS: Basophils % (A) 0 %; Eosinophils # (A) 0.2 k/uL (0-0.7); Eosinophils % (A) 2 %; HCT 30.8 % (34.0-46.0); HGB 10.2 gm/dL (11.4-16.0); Hypochromasia Slight; Lymphocytes # (A) 0.4 k/uL (1.0-4.8); Lymphocytes % (A) 5 %; MCHC 33.1 g/dL (31.0-37.0); MCV 93.6 fL (80.0-100.0); Mean Platelet Volume 7.5; Monocytes # (A) 0.4 k/uL (0-1.0); Monocytes % (A) 5 %; Neutrophils % (A) 86 %; Platelet Count 230 k/uL (150-450); Poikilocytosis Slight; RBC 3.29 m/uL (3.80-5.40); RDW 15.4 % (11.5-15.5); WBC 8.1 k/uL (3.8-10.6)
--- NOTE | 2021-03-11 07:21 | P.PCN ---
Date of Procedure: 03/11/21 Procedure(s) Performed: Brief history: Patient is a pleasant 85-year-old white female admitted hospital with symptomatic anemia and hemoglobin of 7 g/dL requiring 2 units of blood transfusion. She has been complaint of intermittent rectal bleeding. She has been on a Eliquis which is currently on hold for 3 days. She is scheduled for an upper endoscopy as well as colonoscopy today. Procedure performed: Esophagogastroduodenoscopy with cautery using a gold probe Colonoscopy Preoperative diagnosis: Anemia and intermittent rectal bleeding Anesthesia: MAC Procedure: After informed consent was obtained from the patient was brought into the endoscopy unit and IV sedation was administered by anesthesia under continuous monitoring. Initially colonoscopy was done. Initial digital rectal examination was normal. Olympus CF 160 video colonoscope was then inserted into the rectum and gradually advanced to the cecum without any difficulty. Careful examination was performed as the scope was gradually being withdrawn. The prep was poor in some areas of the colon The cecum, ascending colon, transverse colon, descending colon, sigmoid colon and rectum appeared normal. Retroflexion was performed in the rectum and small internal hemorrhoids were noted. Patient tolerated the procedure well. At this time patient continued to remain sedated. The Olympus GF 160 video endoscope was inserted inserted into the mouth and esophagus intubated without any difficulty and was gradually advanced into the stomach and duodenum and carefully examined. The bulb and second part of the duodenum appeared normal. In the second part of the duodenum there was a 5 mm nonbleeding arteriovenous malformation that was cauterized using a gold probe. The scope was then withdrawn into the stomach adequately insufflated with air and upon careful examination the antrum and body, cardia and fundus appeared normal. The scope was then withdrawn into the esophagus. The GE junction was located at 40 cm to the incisors. Small sliding type hiatal hernia noted. It appeared regular with no erythema erosions or ulcerations. Rest of the esophagus appeared normal. Patient tolerated the procedure well. Impression: 1. Colonoscopy revealed poor prep in some areas but no evidence of colorectal neoplasia. Small internal hemorrhoids seen. 2. 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 Recommendations: Findings of this examination were discussed with the patient . Diet will be advanced as tolerated. Anticoagulation can be resumed at this time.
[2021-03-11 07:29] LABS: ALT 26 U/L (4-34); AST 39 U/L (14-36); African American GFR (CKD) >90 (>60 ml/min/1.73 sqM); Albumin 2.9 g/dL (3.5-5.0); Albumin/Globulin Ratio 1.2; Alkaline Phosphatase 97 U/L (38-126); Anion Gap 6 mmol/L; Blood Urea Nitrogen 12 mg/dL (7-17); Calcium 8.5 mg/dL (8.4-10.2); Carbon Dioxide 27 mmol/L (22-30); Chloride 98 mmol/L (98-107); Globulin 2.5 g/dL; Glucose 100 mg/dL (74-99); Magnesium 1.6 mg/dL (1.6-2.3); Non-African American GFR(CKD) >90 (>60 ml/min/1.73 sqM); Potassium 3.2 mmol/L (3.5-5.1); Sodium 131 mmol/L (137-145); Total Bilirubin 1.3 mg/dL (0.2-1.3); Total Protein 5.4 g/dL (6.3-8.2)
[2021-03-11] MEDS: IPRATROPIUM 0.5 MG/2.5 ML NEBU INHALATION SCH ×3 (07:31→16:45)
[2021-03-11] MEDS: SYMBICORT 80-4.5 MCG INHALER INHALATION SCH ×2 (07:31→21:12)
--- NOTE | 2021-03-11 07:53 | P.PN ---
Progress Note - Text Progress Note Date: 03/11/21 Patient is status post EGD and colonoscopy. Colonoscopy revealed poor prep in some areas but there is no evidence of colorectal neoplasia. Small internal hemorrhoid seen. Upper endoscopy revealed 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 and a small hiatal hernia seen. Diet can be advanced as tolerated. Patient is cleared from gastroenterology for discharge and may resume anticoagulation. Thank you for allowing us to participate in the care of the patient, the GI service will sign off, gastroenterology will not be available at the hospital after today. If further evaluation by gastroenterology is required the patient will need transfer as per the primary team's discretion. Dr. Keyon Sams I agree with the dictator's note, documented as a scribe by Claire Hathaway.
[2021-03-11] MEDS ORDERED: LACTATED RINGERS 1,000 ML IV SCH (08:20)
[2021-03-11] MEDS: MAGNESIUM OXIDE 400 MG TAB PO SCH ×2 (08:22→21:48)
[2021-03-11] MEDS: PANTOPRAZOLE 40 MG TABLET PO SCH (08:22)
[2021-03-11] MEDS: ISOSORBIDE MONONITRATE ER 30 MG TAB.ER.24H PO SCH (08:22)
[2021-03-11] MEDS: METOPROLOL TARTRATE 25 MG TAB PO SCH ×2 (08:22→21:48)
[2021-03-11] MEDS: amLODIPine 5 MG TAB PO SCH (08:22)
[2021-03-11] MEDS: LOSARTAN 25 MG TAB PO SCH (08:22)
[2021-03-11] MEDS: LEVOTHYROXINE 75 MCG TAB PO SCH (08:22)
[2021-03-11] MEDS: SODIUM CHLORIDE TAB 1 GM TAB PO SCH ×2 (08:23→22:34)
[2021-03-11] MEDS: POTASSIUM CHLORIDE ER 20 MEQ TAB.ER PO SCH ×2 (08:24→11:19)
[2021-03-11] MEDS ORDERED: Potassium Replacement Protocol 1 EACH MISC MISCELLANE PRN (09:06)
[2021-03-11] MEDS ORDERED: POTASSIUM CHLORIDE 10 MEQ in WATER FOR INJECTION 1 100ML.BAG IVPB SCH (10:00)
[2021-03-11] MEDS ORDERED: ALBUTEROL INHALATION ONE ×2 (12:02)
[2021-03-11] MEDS ORDERED: IPRATROPIUM INHALATION ONE ×2 (12:02)
[2021-03-11] MEDS ORDERED: POTASSIUM CHLORIDE 10 MEQ in WATER FOR INJECTION 1 100ML.BAG IVPB STA (12:03)
--- NOTE | 2021-03-11 12:44 | XR ---
EXAMINATION TYPE: XR chest 2V DATE OF EXAM: 03/11/2021 COMPARISON: 03/01/2021 TECHNIQUE: PA and lateral views submitted. HISTORY: Shortness of breath FINDINGS: 1 cm nodule left lower lobe. Hyperinflation compatible COPD. Biapical pleural thickening. Postoperati ve change right shoulder. Diffuse osteopenia. Subsegmental changes right and left lower lobe with sma ll effusion. Interstitial pattern noted. IMPRESSION: 1. COPD with basilar infiltrate and small effusion correlate for underlying pneumonia or superimposed interstitial pneumonitis versus venous congestion. 2. Stable left lower lobe pulmonary nodule compatible with granuloma by previous CT scan.
[2021-03-11] MEDS ORDERED: POTASSIUM CHLORIDE ER 10 MEQ TAB.ER.PRT PO STA (14:32)
[2021-03-11 15:54] LABS: Basophils % (A) 0 %; Eosinophils % (A) 0 %; HCT 32.4 % (34.0-46.0); HGB 10.7 gm/dL (11.4-16.0); Hypochromasia Slight; Lymphocytes # (A) 0.5 k/uL (1.0-4.8); Lymphocytes % (A) 6 %; MCH 31.4 pg (25.0-35.0); MCV 95.2 fL (80.0-100.0); Mean Platelet Volume 7.7; Monocytes # (A) 0.5 k/uL (0-1.0); Monocytes % (A) 5 %; Neutrophils # (A) 7.6 k/uL (1.3-7.7); Neutrophils % (A) 87 %; Platelet Count 254 k/uL (150-450); Poikilocytosis Slight; RBC 3.41 m/uL (3.80-5.40); RDW 15.4 % (11.5-15.5); WBC 8.7 k/uL (3.8-10.6)
[2021-03-11 15:59] LABS: African American GFR (CKD) >90 (>60 ml/min/1.73 sqM); Anion Gap 7 mmol/L; Blood Urea Nitrogen 13 mg/dL (7-17); Calcium 8.4 mg/dL (8.4-10.2); Carbon Dioxide 25 mmol/L (22-30); Chloride 99 mmol/L (98-107); Glucose 104 mg/dL (74-99); Non-African American GFR(CKD) >90 (>60 ml/min/1.73 sqM); Potassium 3.9 mmol/L (3.5-5.1); Sodium 131 mmol/L (137-145)
[2021-03-11] MEDS: methylPREDNISolone SOD SUCCI 40 MG/ML 1 ML VIAL IV SCH ×2 (16:36→23:52)
[2021-03-11] MEDS: CEFEPIME 2 GM in SODIUM CHLORIDE 0.9% 100 ML IVPB SCH ×2 (16:36→23:41)
[2021-03-11 16:55] LABS: Glucose,Whole Blood 95 mg/dL (75-99)
[2021-03-11] MEDS: INSULIN ASPART (NovoLOG) 100 UNIT/ML VIAL SQ SCH ×2 (17:38→22:15)
--- NOTE | 2021-03-11 17:55 | P.PN ---
Subjective Progress Note Date: 03/11/21 Principal diagnosis: Chronic Hyponatremia Metabolic encephalopathy, secondary to hyponatremia, anemia, underlying medical conditions, resolving Abnormal stress tests COPD with basilar infiltrates, possible hospital-acquired pneumonia 85-year-old female with significant medical history of paroxysmal atrial fibrillation, COPD with intermittent use of oxygen, hyperlipidemia, hyp ertension, hypothyroidism, history of bladder cancer treated with instillation, melanoma removed under left arm, anxiety, depression, memory impairment is admitted to the hospital for for acute on chronic altered mental status. She states over the last few weeks she has been noticing shades and shadows throughout the house, and unable to recall events that of taken place throughout the days. Patient had extensive diagnostic workup in the emergency department revealing hyponatremia with a sodium of 127. CBC within normal limits for patient's baseline. Chest x-ray emphysema lungs without acute changes. CT of the head without contrast, no acute changes noted. Consultation with neurology for altered mental status and memory impairment. Acute on chronic hyponatremia ordered additional labs. Will continue normal saline at 75 ML's an hour. 03/03/2021 Patient seen and examined at bedside. Patient resting comfortably in bed with no apparent acute signs of distress. She states her memory has improved during hospital stay. Patient able to answer questions appropriately with delayed response. Consultation with neurology for altered mental status, metabolic encephalopathy multifactorial, EEG was ordered and performed see dictation. Consultation with cardiology for intermittent dizziness, patient was recently admitted to the hospital with EKG changes in V5 and [address] depression, at that time patient opted for medical treatment. Patient denies fever, chills, shortness of breath, chest pain, palpitations, abdominal pain, nausea or vomiting at this time. Awaiting recommendations from cardiology and neurology. We'll continue to monitor electrolytes, sodium has increased to 132. 03/04/2021 to 03/07/2021 see hospitalist coverage 03/08/2021 Patient seen and examined at bedside. Patient resting comfortably in bed with no acute signs of distress. Patient has stress tests, revealing abnormal Lexiscan stress test suggestive of ischemia. Throughout hospital stay patient's hemoglobin and hematocrit have trended downward, cardiac catheterization was considered by cardiology but due to significant drop in hemoglobin from 10.4 to 7.4, cardiac catheterization was on hold. Review diagnostic labs this a.m. patient's hemoglobin is 7.1, hematocrit 21.7, order for 1 unit of blood transfusion due to significant drop in hemoglobin and patient on anticoagulation therapy of Eliquis for paroxysmal atrial fibrillation. Consultation with gastroenterology for possible colonoscopy due to significant drop in hemoglobin throughout hospital stay. Patient denies fever, chills, shortness of breath at rest, chest pain, palpitations, abdominal pain, nausea or vomiting or diarrhea. Patient endorses exertional shortness of breath and mild intermittent dizziness. 03/09/2021 Patient seen and examined at bedside. Patient resting in bed in no acute signs of distress. Patient received 1 unit of packed red blood cells yesterday for hemoglobin of 7.1, awaiting results on CBC this a.m. Holding anticoagulation therapy for paroxysmal atrial fibrillation at this time. Awaiting results from CBC and CMP this a.m. Patient endorses mild shortness of breath at rest and exertion, mid epigastric discomfort and intermittent dizziness. Patient denies fever, chills, chest discomfort, palpitations or diarrhea. Gastroenterology following patient for drop of hemoglobin from 10.4-7.1. Patient tentatively rescheduled for colonoscopy. 03/10/2021 Patient seen and examined at bedside. Patient resting comfortably in bed. Patient had an episode on 03/09/2021 of a fall with impact to the floor with head, neck, and back discomfort. Patient has CT of the head and neck without c ontrast no acute abnormalities noted, x-ray of the T-spine with question of mild superior endplate compression fracture of T12 intermittent age noted, L-spine x- ray with diffuse osteopenia and multi leveled degenerative disc disease. Evaluated patient this a.m. alert and oriented 3. Patient endorses shortness of breath at rest, exertional shortness of breath, and generalized weakness. Patient's hemoglobin after 1 unit of packed red blood cells transfusion increase from 7.1-10.2. Order for Lasix IV push 10 mg. Review of electrolytes sodium 128-sodium chloride 1 g by mouth twice a day, potassium 3.7 chloride 98; total bilirubin 1.4 AST 46; Pro calcitonin -0.06. 03/11/2021 Patient seen and examined at bedside. Patient resting comfortably in bed with 4 L of oxygen via nasal cannula. Patient underwent EGD and colonoscopy today with gastroenterology, see dictation from gastroenterology; patient cleared from GI standpoint to resume anticoagulation for proximal atrial fibrillation. Review of vitals and diagnostic testing, throughout the night patient required oxygen due to low oxygen saturations with frequent episodes of shortness of breath. Two-view chest x-ray was obtained, per dictation of radiologist COPD with basilar infiltrates and small effusions with possible underlying pneumonia. Albuterol 10 mg with Atrovent 1 mg administered for shortness of breath, IV corticosteroids scheduled; cefepime 2 g IV piggyback every 8 hours for possible hospital-acquired pneumonia. Electrolyte replacement provided for potassium and magnesium. Objective - Vital Signs Vital signs: Vital Signs Temp 97.9 F 03/11/21 13:00 Pulse 80 03/11/21 17:00 Resp 17 03/11/21 13:00 BP 145/58 03/11/21 13:00 Pulse Ox 98 03/11/21 13:00 Intake & Output 03/10/21 03/11/21 03/11/21 18:59 06:59 18:59 Intake Total 250 100 Balance 250 100 Weight 40.6 kg Intake: IV 100 Oral 250 Other: Voiding Method Toilet # Voids 3 # Bowel Movements 5 - Constitutional General appearance: Present: cooperative, mild distress, thin - EENT Eyes: Present: EOMI, PERRLA, normal appearance ENT: Present: hard of hearing, normal oropharynx Ears: bilateral: normal - Neck Neck: Present: normal ROM Carotids: bilateral: upstroke normal Thyroid: bilateral: normal size - Respiratory Respiratory: bilateral: wheezing (Anterior and posterior lung baca) - Cardiovascular Details: Normal sinus rhythm Heart rate: 84 Rhythm: regular Heart sounds: normal: S1, S2 - Peripheral pulses radial pulse Peripheral Pulses: bilateral: Normal dorsalis pedis Peripheral Pulses: bilateral: Normal - Gastrointestinal General gastrointestinal: Present: normal bowel sounds, soft - Integumentary Integumentary: Present: decreased turgor, pale - Neurologic Neurologic: Present: CNII-XII intact - Musculoskeletal Musculoskeletal: Present: generalized weakness - Psychiatric Psychiatric: Present: A&O x's 3 - Allied health notes Allied health notes reviewed: nursing - Labs CBC & Chem 7: 03/11/21 14:19 03/11/21 14:19 Labs: Abnormal Lab Results - Last 24 Hours (Table) 03/11/21 03/11/21 03/11/21 Range/Units 06:22 06:22 14:19 RBC 3.29 L 3.41 L (3.80-5.40) m/uL Hgb 10.2 L 10.7 L (11.4-16.0) gm/dL Hct 30.8 L 32.4 L (34.0-46.0) % Lymphocytes # 0.4 L 0.5 L (1.0-4.8) k/uL Sodium 131 L (137-145) mmol/L Potassium 3.2 L (3.5-5.1) mmol/L Creatinine 0.42 L (0.52-1.04) mg/dL Glucose 100 H (74-99) mg/dL AST 39 H (14-36) U/L Total Protein 5.4 L (6.3-8.2) g/dL Albumin 2.9 L (3.5-5.0) g/dL 03/11/21 Range/Units 14:19 RBC (3.80-5.40) m/uL Hgb (11.4-16.0) gm/dL Hct (34.0-46.0) % Lymphocytes # (1.0-4.8) k/uL Sodium 131 L (137-145) mmol/L Potassium (3.5-5.1) mmol/L Creatinine 0.45 L (0.52-1.04) mg/dL Glucose 104 H (74-99) mg/dL AST (14-36) U/L Total Protein (6.3-8.2) g/dL Albumin (3.5-5.0) g/dL - Imaging and Cardiology Chest x-ray: report reviewed Assessment and Plan Assessment: Acute on chronic hyponatremia Basilar infiltrates, possible pneumonia, possible hospital-acquired Possible metabolic encephalopathy, multifactorial, secondary to hyponatremia Anemia, unknown etiology Paroxysmal atrial fibrillation Hypertension Dyslipidemia COPD with intermittent use of oxygen History of bladder CA History of melanoma under left arm Anxiety Depression Nicotine dependence Memory impairment Orthopedic surgeries Full code Plan: Acute on chronic hyponatremia, sodium level 131, will continue sodium chloride 1 g twice a day for additional 3 days Change in mental status, acute metabolic encephalopathy, secondary to hyponatremia, anemia, underlying medical conditions, resolving COPD, IV corticosteroids, and [id number] breathing treatments Possible pneumonia, possible hospital-acquired, cefepime 2 g IV PE back every 8 hours Abnormal stress tests, follow-up with cardiology on outpatient basis Paroxysmal atrial fibrillation, resume anticoagulation therapy per gastr oenterology after EGD and colonoscopy Continue home medications Continue to monitor vital signs and diagnostic testing Further recommendations to come based on patient's clinical condition Time with Patient: Greater than 30
[2021-03-11] MEDS: IPRATROPIUM-ALBUTEROL 3 ML NEB INHALATION SCH (21:12)
[2021-03-11] MEDS: SERTRALINE 25 MG TAB PO SCH (21:49)
[2021-03-11] MEDS: ATORVASTATIN 40 MG TAB PO SCH (21:49)
[2021-03-11] MEDS: APIXABAN 2.5 MG TABLET PO SCH (21:49)
[2021-03-11 22:14] LABS: Glucose,Whole Blood 138 mg/dL (75-99)
[2021-03-12] MEDS: LEVOTHYROXINE 75 MCG TAB PO SCH (05:35)
[2021-03-12 06:34] LABS: Basophils % (A) 0 %; Eosinophils % (A) 0 %; HCT 31.6 % (34.0-46.0); HGB 10.3 gm/dL (11.4-16.0); Hypochromasia Slight; Lymphocytes # (A) 0.2 k/uL (1.0-4.8); Lymphocytes % (A) 4 %; MCH 30.8 pg (25.0-35.0); MCHC 32.8 g/dL (31.0-37.0); Mean Platelet Volume 7.5; Monocytes # (A) 0.1 k/uL (0-1.0); Monocytes % (A) 2 %; Neutrophils % (A) 93 %; Platelet Count 264 k/uL (150-450); Poikilocytosis Slight; RBC 3.36 m/uL (3.80-5.40); WBC 6.5 k/uL (3.8-10.6)
[2021-03-12 07:13] LABS: ALT 24 U/L (4-34); AST 34 U/L (14-36); African American GFR (CKD) >90 (>60 ml/min/1.73 sqM); Albumin 2.9 g/dL (3.5-5.0); Albumin/Globulin Ratio 1.2; Alkaline Phosphatase 99 U/L (38-126); Anion Gap 4 mmol/L; Blood Urea Nitrogen 19 mg/dL (7-17); Calcium 8.8 mg/dL (8.4-10.2); Carbon Dioxide 26 mmol/L (22-30); Chloride 100 mmol/L (98-107); Globulin 2.5 g/dL; Glucose 147 mg/dL (74-99); Non-African American GFR(CKD) 86 (>60 ml/min/1.73 sqM); Potassium 4.5 mmol/L (3.5-5.1); Sodium 130 mmol/L (137-145); Total Bilirubin 0.8 mg/dL (0.2-1.3); Total Protein 5.4 g/dL (6.3-8.2)
[2021-03-12 07:58] LABS: Glucose,Whole Blood 182 mg/dL (75-99)
[2021-03-12] MEDS: CEFEPIME 2 GM in SODIUM CHLORIDE 0.9% 100 ML IVPB SCH ×2 (08:28→15:31)
[2021-03-12] MEDS: PANTOPRAZOLE 40 MG TABLET PO SCH (08:29)
[2021-03-12] MEDS: amLODIPine 5 MG TAB PO SCH (08:29)
[2021-03-12] MEDS: APIXABAN 2.5 MG TABLET PO SCH ×2 (08:29→21:49)
[2021-03-12] MEDS: LOSARTAN 25 MG TAB PO SCH (08:30)
[2021-03-12] MEDS: MAGNESIUM OXIDE 400 MG TAB PO SCH ×2 (08:30→21:48)
[2021-03-12] MEDS: SODIUM CHLORIDE TAB 1 GM TAB PO SCH ×2 (08:30→21:49)
[2021-03-12] MEDS: ISOSORBIDE MONONITRATE ER 30 MG TAB.ER.24H PO SCH (08:30)
[2021-03-12] MEDS: METOPROLOL TARTRATE 25 MG TAB PO SCH ×2 (08:30→21:49)
[2021-03-12] MEDS: methylPREDNISolone SOD SUCCI 40 MG/ML 1 ML VIAL IV SCH ×2 (08:31→15:31)
[2021-03-12] MEDS: INSULIN ASPART (NovoLOG) 100 UNIT/ML VIAL SQ SCH ×4 (09:00→21:51)
[2021-03-12] MEDS: IPRATROPIUM-ALBUTEROL 3 ML NEB INHALATION SCH ×4 (09:44→19:09)
[2021-03-12] MEDS: SYMBICORT 80-4.5 MCG INHALER INHALATION SCH ×2 (09:44→19:09)
[2021-03-12 11:45] LABS: Glucose,Whole Blood 262 mg/dL (75-99)
[2021-03-12 13:08] LABS: Magnesium 1.7 mg/dL (1.5-2.4)
--- NOTE | 2021-03-12 15:18 | PN ---
PROGRESS NOTE I am covering for Dr. Caldwell. DATE OF SERVICE: 03/12/2021 This 85-year-old female admitted with chronic hyponatremia, COPD and multiple medical problems is being closely monitored at this time. The patient also had possible bibasilar infiltrate, possibly indicating hospital acquired pneumonia. I reviewed the x-ray personally. The patient is currently on IV steroids and cefepime also. PAST MEDICAL HISTORY: Reviewed. REVIEW OF SYSTEMS: Cardiovascular: No angina or palpitations. Respiration: As mentioned earlier. GI as mentioned earlier. : No dysuria. Nervous system: Diffusely weak. CURRENT MEDICATIONS: Reviewed and include: Tylenol, Xanax, Norvasc, Eliquis, Symbicort, Cefepime, doses reviewed. PHYSICAL EXAMINATION: Alert and oriented times three. Pulse 82, blood pressure 156/69, respiration 20, temperature normal, pulse ox 94% on room air. HEENT: Conjunctivae normal. Neck: No JVD. CARDIOVASCULAR: S1, S2, muffled. RESPIRATORY: Diminished breath sounds at the bases. A few scattered rhonchi. ABDOMEN: Soft, nontender. LEGS are no edema. NERVOUS SYSTEM: Diffusely weak. LAB STUDIES: WBC 6.5, hemoglobin 10.2, sodium 130, albumin is 2.9. ASSESSMENT: 1. Change in mental status, acute metabolic encephalopathy, multifactorial, present on admission. 2. Hyponatremia. 3. Possible bibasilar pneumonia, possibly hospital acquired pneumonia include gram- negative. 4. Abnormal stress test, possibly coronary artery disease. Cardiac cath canceled, on medical treatment. 5. Chronic hyponatremia. 6. Hypokalemia. 7. Generalized gait dysfunction. 8. Severe protein calorie malnutrition. 9. Paroxysmal atrial fibrillation. 10.Hypertension. 11.Hyperlipidemia. 12.Chronic obstructive pulmonary disease with intermittent use of oxygen. 13.History of bladder cancer. 14.History of melanoma of the left . 15.Anxiety/Depression. 16.History of nicotine dependence. 17.History of memory impairment. 18.FULL CODE. RECOMMENDATIONS AND DISCUSSION: This 85-year-old woman who presented with multiple complex medical issues, we will monitor the patient closely, continue the current medications, management and symptomatic treatment. I recommend continue the antibiotics, multivitamins, supplements. Otherwise, closely follow. PT/OT evaluation. Repeat labs. Possible ECF rehab. Prognosis extremely guarded because of multiple complex medical issues. Further recommendations to follow. MMODL / IJN: [id number] / MYLES
[2021-03-12 18:02] LABS: Glucose,Whole Blood 221 mg/dL (75-99)
[2021-03-12 21:22] LABS: Glucose,Whole Blood 134 mg/dL (75-99)
[2021-03-12] MEDS: ATORVASTATIN 40 MG TAB PO SCH (21:48)
[2021-03-12] MEDS: SERTRALINE 25 MG TAB PO SCH (21:49)
[2021-03-13] MEDS: methylPREDNISolone SOD SUCCI 40 MG/ML 1 ML VIAL IV SCH ×4 (00:07→23:45)
[2021-03-13] MEDS: CEFEPIME 2 GM in SODIUM CHLORIDE 0.9% 100 ML IVPB SCH ×4 (00:07→23:45)
[2021-03-13] MEDS: LEVOTHYROXINE 75 MCG TAB PO SCH (05:56)
[2021-03-13] MEDS: ISOSORBIDE MONONITRATE ER 30 MG TAB.ER.24H PO SCH (07:34)
[2021-03-13] MEDS: APIXABAN 2.5 MG TABLET PO SCH ×2 (07:35→20:09)
[2021-03-13] MEDS: SODIUM CHLORIDE TAB 1 GM TAB PO SCH ×2 (07:35→20:08)
[2021-03-13] MEDS: PANTOPRAZOLE 40 MG TABLET PO SCH (07:35)
[2021-03-13] MEDS: METOPROLOL TARTRATE 25 MG TAB PO SCH ×2 (07:35→20:09)
[2021-03-13] MEDS: amLODIPine 5 MG TAB PO SCH (07:35)
[2021-03-13] MEDS: MAGNESIUM OXIDE 400 MG TAB PO SCH ×2 (07:36→20:08)
[2021-03-13] MEDS: IPRATROPIUM-ALBUTEROL 3 ML NEB INHALATION SCH ×4 (07:37→20:53)
[2021-03-13] MEDS: SYMBICORT 80-4.5 MCG INHALER INHALATION SCH ×2 (07:37→20:53)
[2021-03-13 07:41] LABS: Glucose,Whole Blood 164 mg/dL (75-99)
[2021-03-13] MEDS: LOSARTAN 25 MG TAB PO SCH (07:46)
[2021-03-13] MEDS: INSULIN ASPART (NovoLOG) 100 UNIT/ML VIAL SQ SCH ×4 (08:04→20:21)
[2021-03-13 12:34] LABS: Glucose,Whole Blood 194 mg/dL (75-99)
[2021-03-13] MEDS: MULTIVITAMINS, THERA 1 EACH TAB PO SCH (12:54)
[2021-03-13 17:26] LABS: Glucose,Whole Blood 137 mg/dL (75-99)
--- NOTE | 2021-03-13 19:12 | PN ---
PROGRESS NOTE DATE OF SERVICE: 03/13/2021 I am covering for Dr. Caldwell. This 85-year-old woman who was admitted with chronic hyponatremia, change in mental status and weakness is being closely monitored. No chest pain. No palpitations. No fever. Patient appears to be slightly more active today. PHYSICAL EXAMINATION: Alert and oriented x3. Pulse 77, blood pressure 120/53, respiration 18, temperature 97.8, pulse ox 97% on 2 L. HEENT: Conjunctivae normal. Oral mucosa moist. NECK: No jugular venous distention. No lymph node enlargement. CARDIOVASCULAR: S1, S2, muffled. No S3, no S4, RESPIRATORY: Diminished breath sounds at the bases. ABDOMEN: Soft, nontender. LEGS: No edema, no swelling. NERVOUS SYSTEM: No focal deficits. LABS: Accu-Cheks 117, hemoglobin 10.3, sodium is 130. ASSESSMENT: 1. Change in mental status, acute metabolic encephalopathy, multifactorial, present on admission. 2. Hyponatremia, chronic. 3. Possible bibasilar pneumonia, possibly hospital-acquired pneumonia versus gram- negative. 4. Abnormal stress test with possible coronary artery disease. Cardiac cath canceled, on medical treatment. 5. Hypokalemia. 6. Generalized gait dysfunction. 7. Severe protein calorie malnutrition. 8. Paroxysmal atrial fibrillation. 9. Hypertension. 10.Hyperlipidemia. 11.Chronic obstructive pulmonary disease with intermittent use of oxygen. 12.History of bladder cancer. 13.History of melanoma. 14.History of anxiety, depression. 15.History of nicotine dependence. 16.History of memory impairment. 17.FULL CODE. RECOMMENDATIONS AND DISCUSSION: I recommend to continue current medications. PT/OT evaluation, possible ECF rehab. Guarded prognosis. Further recommendations to follow. MMODL / IJN: [id number] /
[2021-03-13] MEDS: ATORVASTATIN 40 MG TAB PO SCH (20:09)
[2021-03-13] MEDS: SERTRALINE 25 MG TAB PO SCH (20:09)
[2021-03-13 20:18] LABS: Glucose,Whole Blood 204 mg/dL (75-99)
[2021-03-13] MEDS ORDERED: SERTRALINE 25 MG TAB PO ONE (22:27)
[2021-03-14] MEDS: LEVOTHYROXINE 75 MCG TAB PO SCH (05:51)
[2021-03-14] MEDS: CEFEPIME 2 GM in SODIUM CHLORIDE 0.9% 100 ML IVPB SCH (07:28)
[2021-03-14 07:29] LABS: Glucose,Whole Blood 135 mg/dL (75-99)
[2021-03-14] MEDS: SODIUM CHLORIDE TAB 1 GM TAB PO SCH (07:29)
[2021-03-14] MEDS: methylPREDNISolone SOD SUCCI 40 MG/ML 1 ML VIAL IV SCH ×2 (07:29→16:40)
[2021-03-14] MEDS: APIXABAN 2.5 MG TABLET PO SCH ×2 (07:30→21:29)
[2021-03-14] MEDS: ISOSORBIDE MONONITRATE ER 30 MG TAB.ER.24H PO SCH (07:30)
[2021-03-14] MEDS: METOPROLOL TARTRATE 25 MG TAB PO SCH ×2 (07:30→21:29)
[2021-03-14] MEDS: LOSARTAN 25 MG TAB PO SCH (07:30)
[2021-03-14] MEDS: PANTOPRAZOLE 40 MG TABLET PO SCH (07:30)
[2021-03-14] MEDS: amLODIPine 5 MG TAB PO SCH (07:30)
[2021-03-14] MEDS: MAGNESIUM OXIDE 400 MG TAB PO SCH ×2 (07:30→21:29)
[2021-03-14] MEDS: INSULIN ASPART (NovoLOG) 100 UNIT/ML VIAL SQ SCH ×4 (07:38→21:32)
[2021-03-14] MEDS: IPRATROPIUM-ALBUTEROL 3 ML NEB INHALATION SCH ×3 (07:48→15:16)
[2021-03-14] MEDS: SYMBICORT 80-4.5 MCG INHALER INHALATION SCH ×2 (07:48→19:40)
--- NOTE | 2021-03-14 09:01 | XR ---
EXAMINATION TYPE: XR chest 1V DATE OF EXAM: 03/14/2021 COMPARISON: 03/11/2021 HISTORY: Shortness of breath TECHNIQUE: Single frontal view of the chest is obtained. FINDINGS: Left lower lobe infiltrate. Calcified nodule left lung base. Coarsened interstitium with d iffuse hyperinflation. Diffuse osteopenia with postsurgical change right shoulder. IMPRESSION: 1. COPD with basilar infiltrate correlate for pulmonary fibrosis. Interstitial pneumonitis or congest ion not excluded. Findings are stable.
[2021-03-14 11:31] LABS: Magnesium 1.9 mg/dL (1.5-2.4)
[2021-03-14 11:50] LABS: Glucose,Whole Blood 161 mg/dL (75-99)
[2021-03-14] MEDS: MULTIVITAMINS, THERA 1 EACH TAB PO SCH (13:01)
[2021-03-14 13:26] LABS: ALT 33 U/L (8-44); AST 32 U/L (13-35); Albumin 3.5 g/dL (3.8-4.9); Albumin/Globulin Ratio 1.67 (1.60-3.17); Alkaline Phosphatase 87 U/L (41-126); Bilirubin, Conjugated <0.20 mg/dL (0.20-0.40); Globulin 2.1 g/dL (1.6-3.3); Total Protein 5.6 g/dL (6.2-8.2)
[2021-03-14 18:08] LABS: Glucose,Whole Blood 153 mg/dL (75-99)
[2021-03-14] MEDS ORDERED: IPRATROPIUM-ALBUTEROL 3 ML NEB INHALATION PRN (19:22)
[2021-03-14 19:57] LABS: Glucose,Whole Blood 162 mg/dL (75-99)
[2021-03-14] MEDS ORDERED: CEFEPIME 2 GM in SODIUM CHLORIDE 0.9% 100 ML IVPB SCH (20:00)
[2021-03-14] MEDS: CEFDINIR 300 MG CAP PO SCH (21:28)
[2021-03-14] MEDS: predniSONE 20 MG TAB PO SCH (21:29)
[2021-03-14] MEDS: ATORVASTATIN 40 MG TAB PO SCH (21:29)
[2021-03-14] MEDS: SERTRALINE 25 MG TAB PO SCH (21:29)
--- NOTE | 2021-03-14 22:50 | P.PN ---
Subjective This is a pleasant 85 years old female with multiple medical problems presents with altered mental status which is transient, evaluated by neurologist and thought it is panic attack, patient currently is back to basic mental status. Also she had possible pneumonia on admission, currently continued on antibiotics. She has been evaluated by GI team for iron deficiency anemia, colonoscopy showing no evidence of a mass, EGD showed a 5 mm nonbleeding AV malformations status post cautery Also there was possible compression of fracture of T12. Patient was sitting in bed, awake, calm no specific symptoms. She had extensive workup. proCalcitonin is negative today at 0.05. Liver enzymes are normal. Chest x- ray showed COPD, bilateral basal infiltrate. Glucose is controlled. Patient currently continued also with steroids. Objective - Vital Signs Vital signs: Vital Signs Temp 98.4 F 03/14/21 12:07 Pulse 81 03/14/21 12:07 Resp 17 03/14/21 12:07 BP 134/54 03/14/21 12:07 Pulse Ox 92 L 03/14/21 12:07 Intake & Output 03/13/21 03/14/21 03/14/21 18:59 06:59 18:59 Intake Total 1230 550 240 Output Total 400 Balance 1230 150 240 Weight 40.6 kg Intake: Intake, IV Titration 200 200 Amount Cefepime 2 gm In Sodium 200 200 Chloride 0.9% 100 ml @ 25 mls/hr IVPB Q8HR [facility] Rx# :[id number] Oral 1030 350 240 Output: Urine 400 Other: Voiding Method Toilet Toilet Toilet Bedside Commode Bedside Commode # Voids 3 1 # Bowel Movements 0 - Exam -GENERAL: The patient is alert and oriented x3, not in any acute distress. Well patient is generally weak HEENT: Pupils are round and equally reacting to light. EOMI. No scleral icterus. No conjunctival pallor. Normocephalic, atraumatic. No pharyngeal erythema. No thyromegaly. CARDIOVASCULAR: S1 and S2 present. No murmurs, rubs, or gallops. PULMONARY: Chest is clear to auscultation, no wheezing or crackles. ABDOMEN: Soft, nontender, nondistended, normoactive bowel sounds. No palpable organomegaly. MUSCULOSKELETAL: No joint swelling or deformity. EXTREMITIES: No cyanosis, clubbing, or pedal edema. NEUROLOGICAL: Gross neurological examination did not reveal any focal deficits. SKIN: No rashes. no petechiae. - Labs CBC & Chem 7: 03/12/21 05:01 03/12/21 05:01 Labs: Abnormal Lab Results - Last 24 Hours (Table) 03/13/21 03/13/21 03/14/21 Range/Units 17:24 20:16 06:58 POC Glucose (mg/dL) 137 H 204 H (75-99) mg/dL Conjugated Bilirubin <0.20 L (0.20-0.40) mg/dL Total Protein 5.6 L (6.2-8.2) g/dL Albumin 3.5 L (3.8-4.9) g/dL 03/14/21 03/14/21 Range/Units 07:16 11:30 POC Glucose (mg/dL) 135 H 161 H (75-99) mg/dL Conjugated Bilirubin (0.20-0.40) mg/dL Total Protein (6.2-8.2) g/dL Albumin (3.8-4.9) g/dL Microbiology - Last 24 Hours (Table) 03/11/21 14:19 Blood Culture - Preliminary Blood No Growth after 48 hours 03/11/21 14:19 Blood Culture - Preliminary Blood No Growth after 48 hours Assessment and Plan Assessment: altered mental status, possible panic attack. Clear by neurologist for discharge By vascular pneumonia is suspected. Improving Iron deficiency anemia status post EGD showing nonbleeding AV malformation status post cautery. Colonoscopy. No colon mass. Possible compression fracture of T12. Generalized weakness and deconditioning Memory impairment Panic attack Plan: This is a pleasant 85 years old female who presents with AMS, panic attack and pneumonia. Continue with antibiotics and steroids neurologist cleared the patient for discharge Labs and medication were reviewed.. Continue same treatment. Continue with symptomatic treatment. Resume home medication. Monitor lytes and vitals. DVT and GI prophylaxis. Further recommendationsas per clinical course of the patient DVT prophylaxis: Eliquis GI Prophylaxis: Ppi PT/OT: Pending Prognosis is guarded
[2021-03-15] MEDS: LEVOTHYROXINE 75 MCG TAB PO SCH (05:45)
[2021-03-15 05:58] LABS: Basophils % (A) 0 %; Eosinophils % (A) 0 %; HCT 29.7 % (34.0-46.0); HGB 9.4 gm/dL (11.4-16.0); Hypochromasia Moderate; Lymphocytes # (A) 0.4 k/uL (1.0-4.8); Lymphocytes % (A) 4 %; MCH 30.7 pg (25.0-35.0); MCHC 31.6 g/dL (31.0-37.0); MCV 97.1 fL (80.0-100.0); Mean Platelet Volume 7.4; Monocytes % (A) 3 %; Neutrophils # (A) 10.8 k/uL (1.3-7.7); Neutrophils % (A) 93 %; Platelet Count 306 k/uL (150-450); RBC 3.06 m/uL (3.80-5.40); RDW 14.8 % (11.5-15.5); WBC 11.7 k/uL (3.8-10.6)
[2021-03-15 05:59] LABS: Monocytes # (A) 0.3 k/uL (0-1.0)
[2021-03-15 06:18] LABS: African American GFR (CKD) >90 (>60 ml/min/1.73 sqM); Anion Gap 4 mmol/L; Blood Urea Nitrogen 45 mg/dL (7-17); Calcium 9.1 mg/dL (8.4-10.2); Carbon Dioxide 33 mmol/L (22-30); Chloride 100 mmol/L (98-107); Glucose 137 mg/dL (74-99); Non-African American GFR(CKD) 89 (>60 ml/min/1.73 sqM); Sodium 137 mmol/L (137-145)
[2021-03-15 07:21] LABS: Glucose,Whole Blood 131 mg/dL (75-99)
[2021-03-15] MEDS: INSULIN ASPART (NovoLOG) 100 UNIT/ML VIAL SQ SCH ×4 (08:16→20:14)
[2021-03-15] MEDS: ISOSORBIDE MONONITRATE ER 30 MG TAB.ER.24H PO SCH (08:32)
[2021-03-15] MEDS: amLODIPine 5 MG TAB PO SCH (08:32)
[2021-03-15] MEDS: MULTIVITAMINS, THERA 1 EACH TAB PO SCH (08:32)
[2021-03-15] MEDS: CEFDINIR 300 MG CAP PO SCH ×2 (08:32→20:03)
[2021-03-15] MEDS: APIXABAN 2.5 MG TABLET PO SCH ×2 (08:33→20:03)
[2021-03-15] MEDS: LOSARTAN 25 MG TAB PO SCH (08:33)
[2021-03-15] MEDS: PANTOPRAZOLE 40 MG TABLET PO SCH (08:33)
[2021-03-15] MEDS: METOPROLOL TARTRATE 25 MG TAB PO SCH ×2 (08:33→20:03)
[2021-03-15] MEDS: predniSONE 20 MG TAB PO SCH ×2 (08:33→20:03)
[2021-03-15] MEDS: SYMBICORT 80-4.5 MCG INHALER INHALATION SCH ×2 (08:39→19:21)
[2021-03-15] MEDS: MAGNESIUM OXIDE 400 MG TAB PO SCH ×2 (08:48→20:03)
[2021-03-15 12:13] LABS: Glucose,Whole Blood 172 mg/dL (75-99)
[2021-03-15 15:41] LABS: HCT 29.8 % (34.0-46.0); HGB 9.4 gm/dL (11.4-16.0); Hypochromasia Moderate; MCH 30.6 pg (25.0-35.0); MCHC 31.5 g/dL (31.0-37.0); MCV 97.1 fL (80.0-100.0); Mean Platelet Volume 7.4; Platelet Count 340 k/uL (150-450); RBC 3.07 m/uL (3.80-5.40); RDW 14.7 % (11.5-15.5)
[2021-03-15 17:33] LABS: Glucose,Whole Blood 141 mg/dL (75-99)
--- NOTE | 2021-03-15 19:03 | P.PN ---
Subjective Progress Note Date: 03/15/21 Principal diagnosis: Chronic Hyponatremia Metabolic encephalopathy, secondary to hyponatremia, anemia, underlying medical conditions, resolving Abnormal stress tests COPD with basilar infiltrates, possible hospital-acquired pneumonia 85-year-old female with significant medical history of paroxysmal atrial fibrillation, COPD with intermittent use of oxygen, hyperlipidemia, hyp ertension, hypothyroidism, history of bladder cancer treated with instillation, melanoma removed under left arm, anxiety, depression, memory impairment is admitted to the hospital for for acute on chronic altered mental status. She states over the last few weeks she has been noticing shades and shadows throughout the house, and unable to recall events that of taken place throughout the days. Patient had extensive diagnostic workup in the emergency department revealing hyponatremia with a sodium of 127. CBC within normal limits for patient's baseline. Chest x-ray emphysema lungs without acute changes. CT of the head without contrast, no acute changes noted. Consultation with neurology for altered mental status and memory impairment. Acute on chronic hyponatremia ordered additional labs. Will continue normal saline at 75 ML's an hour. 03/03/2021 Patient seen and examined at bedside. Patient resting comfortably in bed with no apparent acute signs of distress. She states her memory has improved during hospital stay. Patient able to answer questions appropriately with delayed response. Consultation with neurology for altered mental status, metabolic encephalopathy multifactorial, EEG was ordered and performed see dictation. Consultation with cardiology for intermittent dizziness, patient was recently admitted to the hospital with EKG changes in V5 and [address] depression, at that time patient opted for medical treatment. Patient denies fever, chills, shortness of breath, chest pain, palpitations, abdominal pain, nausea or vomiting at this time. Awaiting recommendations from cardiology and neurology. We'll continue to monitor electrolytes, sodium has increased to 132. 03/04/2021 to 03/07/2021 see hospitalist coverage 03/08/2021 Patient seen and examined at bedside. Patient resting comfortably in bed with no acute signs of distress. Patient has stress tests, revealing abnormal Lexiscan stress test suggestive of ischemia. Throughout hospital stay patient's hemoglobin and hematocrit have trended downward, cardiac catheterization was considered by cardiology but due to significant drop in hemoglobin from 10.4 to 7.4, cardiac catheterization was on hold. Review diagnostic labs this a.m. patient's hemoglobin is 7.1, hematocrit 21.7, order for 1 unit of blood transfusion due to significant drop in hemoglobin and patient on anticoagulation therapy of Eliquis for paroxysmal atrial fibrillation. Consultation with gastroenterology for possible colonoscopy due to significant drop in hemoglobin throughout hospital stay. Patient denies fever, chills, shortness of breath at rest, chest pain, palpitations, abdominal pain, nausea or vomiting or diarrhea. Patient endorses exertional shortness of breath and mild intermittent dizziness. 03/09/2021 Patient seen and examined at bedside. Patient resting in bed in no acute signs of distress. Patient received 1 unit of packed red blood cells yesterday for hemoglobin of 7.1, awaiting results on CBC this a.m. Holding anticoagulation therapy for paroxysmal atrial fibrillation at this time. Awaiting results from CBC and CMP this a.m. Patient endorses mild shortness of breath at rest and exertion, mid epigastric discomfort and intermittent dizziness. Patient denies fever, chills, chest discomfort, palpitations or diarrhea. Gastroenterology following patient for drop of hemoglobin from 10.4-7.1. Patient tentatively rescheduled for colonoscopy. 03/10/2021 Patient seen and examined at bedside. Patient resting comfortably in bed. Patient had an episode on 03/09/2021 of a fall with impact to the floor with head, neck, and back discomfort. Patient has CT of the head and neck without c ontrast no acute abnormalities noted, x-ray of the T-spine with question of mild superior endplate compression fracture of T12 intermittent age noted, L-spine x- ray with diffuse osteopenia and multi leveled degenerative disc disease. Evaluated patient this a.m. alert and oriented 3. Patient endorses shortness of breath at rest, exertional shortness of breath, and generalized weakness. Patient's hemoglobin after 1 unit of packed red blood cells transfusion increase from 7.1-10.2. Order for Lasix IV push 10 mg. Review of electrolytes sodium 128-sodium chloride 1 g by mouth twice a day, potassium 3.7 chloride 98; total bilirubin 1.4 AST 46; Pro calcitonin -0.06. 03/11/2021 Patient seen and examined at bedside. Patient resting comfortably in bed with 4 L of oxygen via nasal cannula. Patient underwent EGD and colonoscopy today with gastroenterology, see dictation from gastroenterology; patient cleared from GI standpoint to resume anticoagulation for proximal atrial fibrillation. Review of vitals and diagnostic testing, throughout the night patient required oxygen due to low oxygen saturations with frequent episodes of shortness of breath. Two-view chest x-ray was obtained, per dictation of radiologist COPD with basilar infiltrates and small effusions with possible underlying pneumonia. Albuterol 10 mg with Atrovent 1 mg administered for shortness of breath, IV corticosteroids scheduled; cefepime 2 g IV piggyback every 8 hours for possible hospital-acquired pneumonia. Electrolyte replacement provided for potassium and magnesium. 03/12/2021 to 03/14/2021 see hospitalist coverage Patient seen and examined at bedside. Patient resting comfortable in bed with supplemental oxygen via nasal cannula. Patient has completed IV antibiotics of cefepime for possible hospital-acquired pneumonia, transitioned to oral by mouth antibiotics. COPD, has completed IV corticosteroids transitioned to oral corticosteroids. Review of diagnostic testing, mild leukocytosis related to corticosteroid therapy, hemoglobin 9.4, hematocrit 29.8, sodium 137, potassium 4.0, chloride 100, and glucose 137. Patient continues to endorse shortness of breath with exertion, generalized weakness, and fatigue. Objective - Vital Signs Vital signs: Vital Signs Temp 97.9 F 03/15/21 12:43 Pulse 69 03/15/21 12:43 Resp 17 03/15/21 12:43 BP 136/69 03/15/21 12:43 Pulse Ox 97 03/15/21 12:43 Intake & Output 03/14/21 03/15/21 03/15/21 18:59 06:59 18:59 Intake Total 580 500 Balance 580 500 Weight 40.6 kg Intake: Intake, IV Titration 100 100 Amount Cefepime 2 gm In Sodium 100 100 Chloride 0.9% 100 ml @ 25 mls/hr IVPB Q12H [facility] Rx# :[id number] Oral 480 400 Other: Voiding Method Toilet Toilet Toilet Bedside Commode Bedside Commode Bedside Commode # Voids 4 2 2 # Bowel Movements 0 - Constitutional General appearance: Present: no acute distress, thin - EENT Eyes: Present: EOMI, PERRLA ENT: Present: hard of hearing - Neck Neck: Present: normal ROM Carotids: bilateral: upstroke normal Thyroid: bilateral: normal size - Respiratory Respiratory: bilateral: diminished (Anterior and posterior lung baca) - Cardiovascular Details: Normal sinus rhythm Heart rate: 84 Rhythm: regular Heart sounds: normal: S1, S2 - Peripheral pulses radial pulse Peripheral Pulses: bilateral: Normal dorsalis pedis Peripheral Pulses: bilateral: Normal - Gastrointestinal General gastrointestinal: Present: normal bowel sounds, soft - Integumentary Integumentary: Present: decreased turgor, pale - Neurologic Neurologic: Present: CNII-XII intact - Musculoskeletal Musculoskeletal: Present: generalized weakness - Psychiatric Psychiatric Comment(s): Delayed response to questions Psychiatric: Present: A&O x's 3 - Allied health notes Allied health notes reviewed: nursing - Labs CBC & Chem 7: 03/15/21 15:17 03/15/21 05:36 Labs: Abnormal Lab Results - Last 24 Hours (Table) 03/14/21 03/15/21 03/15/21 Range/Units 19:55 05:36 05:36 WBC 11.7 H (3.8-10.6) k/uL RBC 3.06 L (3.80-5.40) m/uL Hgb 9.4 L (11.4-16.0) gm/dL Hct 29.7 L (34.0-46.0) % Neutrophils # 10.8 H (1.3-7.7) k/uL Lymphocytes # 0.4 L (1.0-4.8) k/uL Carbon Dioxide 33 H (22-30) mmol/L BUN 45 H (7-17) mg/dL Creatinine 0.49 L (0.52-1.04) mg/dL Glucose 137 H (74-99) mg/dL POC Glucose (mg/dL) 162 H (75-99) mg/dL 03/15/21 03/15/21 03/15/21 Range/Units 07:19 12:11 15:17 WBC 13.0 H (3.8-10.6) k/uL RBC 3.07 L (3.80-5.40) m/uL Hgb 9.4 L (11.4-16.0) gm/dL Hct 29.8 L (34.0-46.0) % Neutrophils # (1.3-7.7) k/uL Lymphocytes # (1.0-4.8) k/uL Carbon Dioxide (22-30) mmol/L BUN (7-17) mg/dL Creatinine (0.52-1.04) mg/dL Glucose (74-99) mg/dL POC Glucose (mg/dL) 131 H 172 H (75-99) mg/dL 03/15/21 Range/Units 17:32 WBC (3.8-10.6) k/uL RBC (3.80-5.40) m/uL Hgb (11.4-16.0) gm/dL Hct (34.0-46.0) % Neutrophils # (1.3-7.7) k/uL Lymphocytes # (1.0-4.8) k/uL Carbon Dioxide (22-30) mmol/L BUN (7-17) mg/dL Creatinine (0.52-1.04) mg/dL Glucose (74-99) mg/dL POC Glucose (mg/dL) 141 H (75-99) mg/dL Microbiology - Last 24 Hours (Table) 03/11/21 14:19 Blood Culture - Preliminary Blood No Growth after 96 hours 03/11/21 14:19 Blood Culture - Preliminary Blood No Growth after 96 hours Assessment and Plan Assessment: Acute on chronic hyponatremia Basilar infiltrates, possible pneumonia, possible hospital-acquired Possible metabolic encephalopathy, multifactorial, secondary to hyponatremia Anemia, unknown etiology Paroxysmal atrial fibrillation Hypertension Dyslipidemia COPD with intermittent use of oxygen History of bladder CA History of melanoma under left arm Anxiety Depression Nicotine dependence Memory impairment Orthopedic surgeries Full code Plan: Acute on chronic hyponatremia, resolved 137 Change in mental status, acute metabolic encephalopathy, secondary to hyponatremia, anemia, underlying medical conditions, resolving COPD, IV corticosteroids transitioned to oral corticosteroids Possible pneumonia, possible hospital-acquired, IV antibiotics transitioned to oral antibiotics Abnormal stress tests, follow-up with cardiology on outpatient basis Paroxysmal atrial fibrillation, resume anticoagulation therapy per gastroenterology after EGD and colonoscopy Continue home medications Continue to monitor vital signs and diagnostic testing Further recommendations to come based on patient's clinical condition Hopeful discharge to senior care facility tomorrow Time with Patient: Greater than 30
[2021-03-15] MEDS: ATORVASTATIN 40 MG TAB PO SCH (20:02)
[2021-03-15] MEDS: SERTRALINE 25 MG TAB PO SCH (20:03)
[2021-03-15 20:11] LABS: Glucose,Whole Blood 173 mg/dL (75-99)
[2021-03-15 21:24] VITALS: RESP 20
[2021-03-16] MEDS: LEVOTHYROXINE 75 MCG TAB PO SCH (05:23)
[2021-03-16 06:06] VITALS: TEMP 98.5
[2021-03-16 07:00] LABS: Basophils % (A) 0 %; Eosinophils % (A) 0 %; HCT 32.3 % (34.0-46.0); Hypochromasia Moderate; Lymphocytes # (A) 0.6 k/uL (1.0-4.8); Lymphocytes % (A) 7 %; MCH 30.1 pg (25.0-35.0); MCV 96.9 fL (80.0-100.0); Mean Platelet Volume 7.4; Monocytes # (A) 0.6 k/uL (0-1.0); Monocytes % (A) 6 %; Neutrophils # (A) 8.2 k/uL (1.3-7.7); Neutrophils % (A) 86 %; Platelet Count 332 k/uL (150-450); RBC 3.34 m/uL (3.80-5.40); RDW 14.5 % (11.5-15.5); WBC 9.5 k/uL (3.8-10.6)
[2021-03-16 07:10] LABS: Glucose,Whole Blood 127 mg/dL (75-99)
[2021-03-16] MEDS: INSULIN ASPART (NovoLOG) 100 UNIT/ML VIAL SQ SCH ×2 (08:49→14:32)
[2021-03-16 10:38] LABS: African American GFR (CKD) 96.3 (60.0-200.0); Albumin 3.3 g/dL (3.8-4.9); Albumin/Globulin Ratio 1.74 (1.60-3.17); Anion Gap 10.5 mmol/L (4.00-12.00); BUN/Creat Ratio 62.83 Ratio (12.00-20.00); Blood Urea Nitrogen 37.7 mg/dL (9.0-27.0); Calcium 8.8 mg/dL (8.7-10.3); Carbon Dioxide 31.5 mmol/L (21.6-31.8); Globulin 1.9 g/dL (1.6-3.3); Non-African American GFR(CKD) 83.1 (60.0-200.0); Potassium 4.3 mmol/L (3.5-5.5); Total Bilirubin 0.3 mg/dL (0.30-1.20); Total Protein 5.2 g/dL (6.2-8.2)
[2021-03-16] MEDS: ISOSORBIDE MONONITRATE ER 30 MG TAB.ER.24H PO SCH (11:06)
[2021-03-16] MEDS: CEFDINIR 300 MG CAP PO SCH (11:07)
[2021-03-16] MEDS: LOSARTAN 25 MG TAB PO SCH (11:07)
[2021-03-16] MEDS: MAGNESIUM OXIDE 400 MG TAB PO SCH (11:07)
[2021-03-16] MEDS: APIXABAN 2.5 MG TABLET PO SCH (11:07)
[2021-03-16] MEDS: predniSONE 20 MG TAB PO SCH (11:07)
[2021-03-16] MEDS: MULTIVITAMINS, THERA 1 EACH TAB PO SCH (11:07)
[2021-03-16] MEDS: METOPROLOL TARTRATE 25 MG TAB PO SCH (11:07)
[2021-03-16] MEDS: amLODIPine 5 MG TAB PO SCH (11:07)
[2021-03-16] MEDS: PANTOPRAZOLE 40 MG TABLET PO SCH (11:07)
--- NOTE | 2021-03-16 11:11 | P.DS ---
Providers Date of admission: 03/01/21 21:10 Expected date of discharge: 03/16/21 Attending physician: Ebenezer Caldwell Consults: 03/02/21 08:41 Consult Physician Urgent Consulting Provider: Bonilla Winters Consult Reason/Comments: ams Do you want consulting provider notified?: Yes 03/02/21 15:10 Consult Physician Urgent Consulting Provider: Jey Bolivar Consult Reason/Comments: EPISODES OF DIZZINESS WITH PALPITATION Do you want consulting provider notified?: Yes 03/08/21 09:52 Consult Physician Stat Consulting Provider: Luly aSms Consult Reason/Comments: possible bleeding, Hgb 7.1 Do you want consulting provider notified?: Yes Primary care physician: Ebenezer Caldwell Hospital Course: 85-year-old female with significant medical history of paroxysmal atrial fibri llation, COPD with intermittent use of oxygen, hyperlipidemia, hypertension, hypothyroidism, history of bladder cancer treated with instillation, melanoma removed under left arm, anxiety, depression, memory impairment is admitted to the hospital for for acute on chronic altered mental status. She states over the last few weeks she has been noticing shades and shadows throughout the house, and unable to recall events that of taken place throughout the days. Patient had lengthy stay over 2 week duration with multiple consultants from neurology, cardiology and gastroenterology. Neurology evaluated the patient and ordered an dictated EEG with noted abnormal due to background slowing a mild degree, dictation from neurology possible encephalopathy of metabolic, vascular or degenerative causes. Cardiology evaluated patient stress tests was abnormal, but due to anemia unable to perform heart catheterization will follow-up in 1-2 week period on outpatient basis. Cardiology is perspective patient is cleared for discharge. Gastroenterology was consulted for a drop of hemoglobin from 10.4-7.1, 1 unit of packed red blood cells was transfused with stabilization of hemoglobin and hematocrit. EGD and colonoscopy were performed no acute bleeding noted per gastroenterology. Patient was evaluated by physical therapy/occupational therapy recommendations for strengthening conditioning the long-term facility. Patient will be discharged in stable condition with guarded prognosis due to multiple comorbidities Assessment: Acute on chronic hyponatremia Basilar infiltrates, possible pneumonia, possible hospital-acquired Possible metabolic encephalopathy, multifactorial, secondary to hyponatremia Anemia, unknown etiology Paroxysmal atrial fibrillation Hypertension Dyslipidemia COPD with intermittent use of oxygen History of bladder CA History of melanoma under left arm Anxiety Depression Nicotine dependence Memory impairment Orthopedic surgeries Full code Final diagnosis Change in mental status, acute metabolic encephalopathy secondary to hyponatremia, anemia, underlying medical conditions resolved at neurological baseline alert and oriented 3 with delayed response and mild memory impairment; recommendation frequent neuro checks for acute changes in mentation Chronic hyponatremia resolved, continue to monitor on outpatient basis with weekly BMPs Possible pneumonia continue oral antibiotics of Omnicef 300 mg twice a day for 5 days, follow-up with a chest x-ray in 2 weeks COPD without exacerbation continue prednisone 50 mg by mouth daily for 5 days, continue home medications and monitor oxygen saturations to keep oxygen 88-92% Severe malnutrition with a BMI of 15.4 continue supplemental ensures 3 times a day Abnormal stress tests, monitor for signs and symptoms of acute coronary syndrome, follow-up with cardiology in 1-2 weeks Health Concerns: Multiple comorbidities Complexity of medical treatment plan Memory impairment Pertinent Studies: Serial chest x-rays; COPD with basilar infiltrate per radiology CT of the head without contrast; senescent changes without any acute intracr anial process per radiology EEG; dictation by , abnormal EEG due to background slowing of mild degree Ultrasound carotid arteries: atheromtous plaquing present bilateral without significant flow limiting stenosis within the common or internal carotid arteries Stress tests: Abnormal Lexiscan stress suggestive ischemia, per cardiology and radiology Ultrasound gallbladder: Possible hepatic steatosis see dictation from radiology CT of the head and C-spine: No acute fracture or dislocation noted by radiology X-ray lumbar spine: Diffuse osteopenia and multi degenerative disc disease X-ray T-spine: Possible mild superior endplate compression fracture of T12 undetermined age Procedures: EGD: Revealed a 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 and small hiatal hernia Colonoscopy: No evidence of colorectal neoplasm on noted, small internal hemorrhoid noted EGD/colonoscopy see dictation from gastroenterology Patient Condition at Discharge: Fair Plan - Discharge Summary Discharge Rx Participant: No New Discharge Prescriptions: New Cefdinir [Omnicef] 300 mg PO BID #10 cap Multivitamins, Thera [Multivitamin (formulary)] 1 each PO DAILY@1200 #30 tab amLODIPine [Norvasc] 5 mg PO DAILY #30 tab predniSONE 50 mg PO DAILY #5 tab Continue Levothyroxine Sodium [Synthroid] 75 mcg PO DAILY Apixaban [Eliquis] 2.5 mg PO BID #60 tablet Atorvastatin [Lipitor] 40 mg PO HS #30 tab Levocetirizine Dihydrochloride [Xyzal] 5 mg PO DAILY Albuterol Sulfate [Ventolin HFA] 2 puff INHALATION RT-QID PRN PRN Reason: Shortness Of Breath Metoprolol Tartrate [Lopressor] 25 mg PO BID Umeclidinium Brm/Vilanterol Tr [Anoro Ellipta 62.5-25 Mcg INH] 1 puff INHALATION RT-DAILY Losartan [Cozaar] 25 mg PO DAILY 30 Days #30 tab Sertraline [Zoloft] 25 mg PO HS INSULIN LISPRO (humaLOG) [humaLOG] See Protocol PO DIRECTED Ipratropium Nebulized [Atrovent Nebulized 0.2 MG/ML] 0.5 mg INHALATION RT-QID PRN PRN Reason: Shortness Of Breath Omeprazole 20 mg PO DAILY Lactulose 10 gm PO DAILY PRN PRN Reason: Constipation Isosorbide Mononitrate ER [Imdur] 30 mg PO DAILY 30 Days #30 tablet Nitroglycerin Sl Tabs [Nitrostat] 0.4 mg SUBLINGUAL Q5M PRN tab PRN Reason: Chest Pain QUEtiapine [SEROquel] 12.5 mg PO HS PRN tab PRN Reason: Agitation Acetaminophen Tab [Tylenol] 650 mg PO Q6HR PRN tab PRN Reason: Fever And/ Or Pain Discontinued Aspirin 81 mg PO DAILY predniSONE See Taper PO DAILY Discharge Medication List Levothyroxine Sodium [Synthroid] 75 mcg PO DAILY 12/11/18 [History] Apixaban [Eliquis] 2.5 mg PO BID #60 tablet 12/13/18 [Rx] Atorvastatin [Lipitor] 40 mg PO HS #30 tab 12/13/18 [Rx] Albuterol Sulfate [Ventolin HFA] 2 puff INHALATION RT-QID PRN 05/19/19 [History] Levocetirizine Dihydrochloride [Xyzal] 5 mg PO DAILY 05/19/19 [History] Metoprolol Tartrate [Lopressor] 25 mg PO BID 05/19/19 [History] Lactulose 10 gm PO DAILY PRN 02/15/21 [History] Umeclidinium Brm/Vilanterol Tr [Anoro Ellipta 62.5-25 Mcg INH] 1 puff INHALATION RT-DAILY 02/15/21 [History] Isosorbide Mononitrate ER [Imdur] 30 mg PO DAILY 30 Days #30 tablet 02/17/21 [Rx] Losartan [Cozaar] 25 mg PO DAILY 30 Days #30 tab 02/17/21 [Rx] Acetaminophen Tab [Tylenol] 650 mg PO Q6HR PRN tab 02/18/21 [Rx] Nitroglycerin Sl Tabs [Nitrostat] 0.4 mg SUBLINGUAL Q5M PRN tab 02/18/21 [Rx] QUEtiapine [SEROquel] 12.5 mg PO HS PRN tab 02/18/21 [Rx] INSULIN LISPRO (humaLOG) [humaLOG] See Protocol PO DIRECTED 03/01/21 [History] Ipratropium Nebulized [Atrovent Nebulized 0.2 MG/ML] 0.5 mg INHALATION RT-QID PRN 03/01/21 [History] Omeprazole 20 mg PO DAILY 03/01/21 [History] Sertraline [Zoloft] 25 mg PO HS 03/01/21 [History] Cefdinir [Omnicef] 300 mg PO BID #10 cap 03/15/21 [Rx] Multivitamins, Thera [Multivitamin (formulary)] 1 each PO DAILY@1200 #30 tab 03/15/21 [Rx] amLODIPine [Norvasc] 5 mg PO DAILY #30 tab 03/15/21 [Rx] predniSONE 50 mg PO DAILY #5 tab 03/15/21 [Rx] Follow up Appointment(s)/Referral(s): Ebenezer Caldwell MD [Primary Care Provider] - 1-2 days Candelaria Pal MD [STAFF PHYSICIAN] - 1 Week Ambulatory/Diagnostic Orders: Complete Blood Count w/diff [LAB.AMB] Time Frame: 2 Days, Location: None Selected Comprehensive Metabolic Panel [LAB.AMB] Time Frame: 2 Days, Location: None Selected Magnesium [LAB.AMB] Time Frame: 2 Days, Location: None Selected Patient Instructions/Handouts: A-fib (Atrial Fibrillation) (DC), Malnutrition (DC), COPD (Chronic Obstructive Pulmonary Disease) (DC), Weakness (DC), Anemia (DC), Pneumonia (DC) Activity/Diet/Wound Care/Special Instructions: Fall precautions Two assist with ambulation Dysphagia level II ground diet Discharge Disposition: TRANSFER TO SNF/ECF
[2021-03-16] MEDS: SYMBICORT 80-4.5 MCG INHALER INHALATION SCH (11:12)
[2021-03-16 11:34] VITALS: BP 164/66; PULSE 85
[2021-03-16 12:19] LABS: Glucose,Whole Blood 184 mg/dL (75-99)
== END 2021-03-16 14:55 | DRG 640 ==
LOC: EC 17:18 → 5NMEDONC 21:10
PROVIDERS: ADMIT Family Medicine; ATTEND Family Medicine
PROC: 30233N1 Transfusion of Nonautologous Red Blood Cells into Peripheral Vein, Percutaneous Approach (ICD-10-PCS; 2021-03-11)
PROC: 0W3P8ZZ Control Bleeding in Gastrointestinal Tract, Via Natural or Artificial Opening Endoscopic (ICD-10-PCS; principal; 2021-03-11 06:45)
PROC: 0DJD8ZZ Inspection of Lower Intestinal Tract, Via Natural or Artificial Opening Endoscopic (ICD-10-PCS; 2021-03-11 06:45)
DX: E87.1 Hypo-osmolality and hyponatremia (principal); E43 Unspecified severe protein-calorie malnutrition; G93.41 Metabolic encephalopathy; J18.9 Pneumonia, unspecified organism; K62.5 Hemorrhage of anus and rectum; Z68.1 Body mass index [BMI] 19.9 or less, adult; D50.9 Iron deficiency anemia, unspecified; E03.9 Hypothyroidism, unspecified; E78.5 Hyperlipidemia, unspecified; E87.6 Hypokalemia; F32.9 Major depressive disorder, single episode, unspecified; F41.0 Panic disorder [episodic paroxysmal anxiety]; H91.90 Unspecified hearing loss, unspecified ear; I10 Essential (primary) hypertension; I48.0 Paroxysmal atrial fibrillation; I49.3 Ventricular premature depolarization; J43.9 Emphysema, unspecified; K31.819 Angiodysplasia of stomach and duodenum without bleeding; K44.9 Diaphragmatic hernia without obstruction or gangrene; Z20.822 Contact with and (suspected) exposure to COVID-19; K59.00 Constipation, unspecified; K64.8 Other hemorrhoids; N20.0 Calculus of kidney; Z79.01 Long term (current) use of anticoagulants; Z79.82 Long term (current) use of aspirin; Z79.890 Hormone replacement therapy; Z79.899 Other long term (current) drug therapy; Z80.49 Family history of malignant neoplasm of other genital organs; Z85.51 Personal history of malignant neoplasm of bladder; Z85.820 Personal history of malignant melanoma of skin; Z90.710 Acquired absence of both cervix and uterus; Z88.1 Allergy status to other antibiotic agents; Z88.5 Allergy status to narcotic agent; Z88.2 Allergy status to sulfonamides; Z87.891 Personal history of nicotine dependence; R41.3 Other amnesia; R55 Syncope and collapse; I48.91 Unspecified atrial fibrillation; Y95 Nosocomial condition
CPT/HCPCS: 36415; 43270; 45378; 51798; 70450; 71045; 71046; 72070; 72100; 72125; 74022; 76705; 78452; 80048; 80053; 80076; 80306; 81003; 82024; 82088; 82140; 82306; 82607; 82728; 82746; 83540; 83550; 83615; 83735; 83930; 84132; 84145; 84207; 84439; 84443; 84481; 85025; 85027; 85045; 85610; 85730; 86850; 86900; 86901; 86920; 87040; 87635; 93005; 93017; 93880; 94640; 95816; 96360; 96361; 99285

== ENCOUNTER 2021-04-29 10:23 | Inpatient (IN) | payer MEDICARE, BC ==
[2021-04-29] MEDS ORDERED: IPRATROPIUM-ALBUTEROL 3 ML NEB INHALATION STA (11:11)
--- NOTE | 2021-04-29 11:24 | ED ---
General Adult HPI - General Chief complaint: Weakness Stated complaint: Weakness/SOB Time Seen by Provider: 04/29/21 10:30 Source: patient, RN notes reviewed, old records reviewed Mode of arrival: EMS Limitations: no limitations - History of Present Illness Initial comments: This is an 85-year-old female presents emergency Department complaining of diff iculty breathing. Patient states been ongoing for quite a while but getting worse over the last few days and her pulse ox today was in the 70s home so she came to the emergency department. Patient denies any new fever chills or cough. Patient denies any chest pain or palpitations. Patient denies any abdominal pain patient denies nausea vomiting diarrhea. Patient states she has had some urinary incontinence over the last month with some burning. - Related Data Home Medications Medication Instructions Recorded Confirmed Levothyroxine Sodium [Synthroid] 75 mcg PO DAILY 12/11/18 04/29/21 Levocetirizine Dihydrochloride 5 mg PO DAILY 05/19/19 04/29/21 [Xyzal] Metoprolol Tartrate [Lopressor] 25 mg PO BID 05/19/19 04/29/21 Lactulose 10 gm PO DAILY 02/15/21 04/29/21 Umeclidinium Brm/Vilanterol Tr 1 puff INHALATION RT-DAILY 02/15/21 04/29/21 [Anoro Ellipta 62.5-25 Mcg INH] Ipratropium Nebulized [Atrovent 0.5 mg INHALATION RT-QID PRN 03/01/21 04/29/21 Nebulized 0.2 MG/ML] Omeprazole 20 mg PO DAILY 03/01/21 04/29/21 Sertraline [Zoloft] 25 mg PO HS 03/01/21 04/29/21 Albuterol Sulfate [Proair Hfa] 2 puff INHALATION RT-Q4H 04/29/21 04/29/21 Multivitamins, Thera [Multivitamin 1 tab PO DAILY@1200 04/29/21 04/29/21 (formulary)] Nitroglycerin Sl Tabs [Nitrostat] 0.4 mg SL Q5M PRN 04/29/21 04/29/21 Previous Rx's Medication Instructions Recorded Apixaban [Eliquis] 2.5 mg PO BID #60 tablet 12/13/18 Atorvastatin [Lipitor] 40 mg PO HS #30 tab 12/13/18 Isosorbide Mononitrate ER [Imdur] 30 mg PO DAILY 30 Days #30 tablet 02/17/21 Losartan [Cozaar] 25 mg PO DAILY 30 Days #30 tab 02/17/21 Acetaminophen Tab [Tylenol] 650 mg PO Q6HR PRN tab 02/18/21 Allergies Allergy/AdvReac Type Severity Reaction Status Date / Time azithromycin Allergy Unknown Verified 04/29/21 12:05 mussels Allergy Unknown Verified 04/29/21 12:05 codeine AdvReac Nausea & Verified 04/29/21 12:05 Vomiting Sulfa (Sulfonamide AdvReac Nausea & Verified 04/29/21 12:05 Antibiotics) Vomiting Review of Systems ROS Statement: Those systems with pertinent positive or pertinent negative responses have been documented in the HPI. ROS Other: All systems not noted in ROS Statement are negative. 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 History of Any Multi-Drug Resistant Organisms: None Reported Past Surgical History: Adenoidectomy, Back Surgery, Bladder Surgery, Breast Surgery, Hysterectomy, Orthopedic Surgery, Tonsillectomy Additional Past Surgical History / Comment(s): R knee arthroscopic surgery, lumbar laminectomy, R rotator cuff repair, D&C, total hysterectomy, L arm melanoma excised, cystoscopy for instillation to burn bladder holder d/t bladder cancer, R breast benign bx, bilateral cataract removals, bilateral vein stripping, colonoscopy Past Anesthesia/Blood Transfusion Reactions: Postoperative Nausea & Vomiting (PO NV) Additional Past Anesthesia/Blood Transfusion Reaction / Comment(s): Pt has received blood in past without reaction. Past Psychological History: Anxiety, Depression Smoking Status: Former smoker Past Alcohol Use History: None Reported Past Drug Use History: None Reported - Past Family History Mother Family Medical History: Cancer, Pneumonia, Respiratory Disorder Additional Family Medical History / Comment(s): TB, uterine cancer. Father Family Medical History: No Reported History Additional Family Medical History / Comment(s): Father was healthy. General Exam - General Exam Comments Initial Comments: GENERAL: Patient is well-developed and well-nourished. Patient is nontoxic and well- hydrated and is in mild distress. ENT: Neck is soft and supple. No significant lymphadenopathy is noted. Oropharynx is clear. Moist mucous membranes. Neck has full range of motion without eliciting any pain. EYES: The sclera were anicteric and conjunctiva were pink and moist. Extraocular movements were intact and pupils were equal round and reactive to light. Eyel ids were unremarkable. PULMONARY: Unlabored respirations. Good breath sounds bilaterally. No audible rales rhonchi or wheezing was noted. CARDIOVASCULAR: There is a regular rate and rhythm without any murmurs gallops or rubs. ABDOMEN: Soft and nontender with normal bowel sounds. SKIN: Skin is clear with no lesions or rashes and otherwise unremarkable. NEUROLOGIC: Patient is alert and oriented x3. Cranial nerves II through XII are grossly intact. Motor and sensory are also intact. Normal speech, volume and content. Symmetrical smile. MUSCULOSKELETAL: Normal extremities with adequate strength and full range of motion. No lower extremity swelling or edema. No calf tenderness. LYMPHATICS: No significant lymphadenopathy is noted PSYCHIATRIC: Normal psychiatric evaluation. Limitations: no limitations Course Vital Signs 04/29/21 04/29/21 04/29/21 10:28 11:31 11:40 Temperature 98.2 F Pulse Rate 87 84 90 Respiratory 16 18 16 Rate Blood Pressure 168/80 O2 Sat by Pulse 95 Oximetry 04/29/21 04/29/21 11:53 12:28 Temperature 98.3 F Pulse Rate 98 Respiratory 18 Rate Blood Pressure 156/92 O2 Sat by Pulse 97 92 L Oximetry Medical Decision Making - Medical Decision Making EKG shows normal sinus rhythm at 85 bpm TX interval 222 QRS is 82 QT interval is 386 QTC is 459. Patient's EKG shows some ST segment depression in V6 no significant changes noted leads. Patient pulse ox on room air was 81-83% Chest x-ray shows no acute abnormality. Patient received a breathing treatment as well as Solu-Medrol while in the emergency department. Patient states there was minimal improvement. Patient's d-dimer was elevated so I did order a CT of the chest. I spoke with [facility] hospitalist agreed to admit the patient admitted the patient wrote admitting orders. Patient's troponin came back elevated as did the BNP. Patient was started on heparin per radiology was consulted. - Lab Data Result diagrams: 04/29/21 10:42 04/29/21 10:42 Lab Results 04/29/21 04/29/21 04/29/21 Range/Units 10:42 10:42 10:42 WBC 6.8 (3.8-10.6) k/uL RBC 3.37 L (3.80-5.40) m/uL Hgb 9.4 L (11.4-16.0) gm/dL Hct 29.0 L (34.0-46.0) % MCV 85.9 D (80.0-100.0) fL MCH 27.9 (25.0-35.0) pg MCHC 32.5 (31.0-37.0) g/dL RDW 15.9 H (11.5-15.5) % Plt Count 494 H (150-450) k/uL MPV 6.9 Neutrophils % 80 % Lymphocytes % 8 % Monocytes % 6 % Eosinophils % 2 % Basophils % 1 % Neutrophils # 5.4 (1.3-7.7) k/uL Lymphocytes # 0.6 L (1.0-4.8) k/uL Monocytes # 0.4 (0-1.0) k/uL Eosinophils # 0.2 (0-0.7) k/uL Basophils # 0.0 (0-0.2) k/uL Hypochromasia Moderate Poikilocytosis Moderate PT 10.4 (9.0-12.0) sec INR 1.0 (<1.2) APTT 21.6 L (22.0-30.0) sec D-Dimer 1.25 H (<0.60) mg/L FEU Sodium 136 L (137-145) mmol/L Potassium 3.0 L (3.5-5.1) mmol/L Chloride 102 (98-107) mmol/L Carbon Dioxide 26 (22-30) mmol/L Anion Gap 8 mmol/L BUN 14 (7-17) mg/dL Creatinine 0.61 (0.52-1.04) mg/dL Est GFR (CKD-EPI)AfAm >90 (>60 ml/min/1.73 sqM) Est GFR (CKD-EPI)NonAf 83 (>60 ml/min/1.73 sqM) Glucose 102 H (74-99) mg/dL Plasma Lactic Acid Abelino (0.7-2.0) mmol/L Calcium 8.7 (8.4-10.2) mg/dL Magnesium 1.6 (1.6-2.3) mg/dL Total Bilirubin 0.6 (0.2-1.3) mg/dL AST 28 (14-36) U/L ALT 11 (4-34) U/L Alkaline Phosphatase 80 (38-126) U/L Troponin I (0.000-0.034) ng/mL NT-Pro-B Natriuret Pep pg/mL Total Protein 6.0 L (6.3-8.2) g/dL Albumin 3.0 L (3.5-5.0) g/dL 04/29/21 04/29/21 04/29/21 Range/Units 10:42 10:42 10:42 WBC (3.8-10.6) k/uL RBC (3.80-5.40) m/uL Hgb (11.4-16.0) gm/dL Hct (34.0-46.0) % MCV (80.0-100.0) fL MCH (25.0-35.0) pg MCHC (31.0-37.0) g/dL RDW (11.5-15.5) % Plt Count (150-450) k/uL MPV Neutrophils % % Lymphocytes % % Monocytes % % Eosinophils % % Basophils % % Neutrophils # (1.3-7.7) k/uL Lymphocytes # (1.0-4.8) k/uL Monocytes # (0-1.0) k/uL Eosinophils # (0-0.7) k/uL Basophils # (0-0.2) k/uL Hypochromasia Poikilocytosis PT (9.0-12.0) sec INR (<1.2) APTT (22.0-30.0) sec D-Dimer (<0.60) mg/L FEU Sodium (137-145) mmol/L Potassium (3.5-5.1) mmol/L Chloride (98-107) mmol/L Carbon Dioxide (22-30) mmol/L Anion Gap mmol/L BUN (7-17) mg/dL Creatinine (0.52-1.04) mg/dL Est GFR (CKD-EPI)AfAm (>60 ml/min/1.73 sqM) Est GFR (CKD-EPI)NonAf (>60 ml/min/1.73 sqM) Glucose (74-99) mg/dL Plasma Lactic Acid Abelino 1.9 (0.7-2.0) mmol/L Calcium (8.4-10.2) mg/dL Magnesium (1.6-2.3) mg/dL Total Bilirubin (0.2-1.3) mg/dL AST (14-36) U/L ALT (4-34) U/L Alkaline Phosphatase (38-126) U/L Troponin I 0.171 H* (0.000-0.034) ng/mL NT-Pro-B Natriuret Pep 4830 pg/mL Total Protein (6.3-8.2) g/dL Albumin (3.5-5.0) g/dL Critical Care Time Critical Care Time: Yes Total Critical Care Time: 35 Disposition Clinical Impression: COPD exacerbation, Hypokalemia, Non-STEMI (non-ST elevated myocardial infarct ion) Disposition: ADMITTED IP TO THIS HOSP Referrals: Ebenezer Caldwell MD [Primary Care Provider] - 1-2 days Time of Disposition: 12:49
[2021-04-29 12:12] LABS: Basophils % (A) 1 %; Eosinophils # (A) 0.2 k/uL (0-0.7); Eosinophils % (A) 2 %; HGB 9.4 gm/dL (11.4-16.0); Hypochromasia Moderate; Lymphocytes # (A) 0.6 k/uL (1.0-4.8); Lymphocytes % (A) 8 %; MCH 27.9 pg (25.0-35.0); MCHC 32.5 g/dL (31.0-37.0); Mean Platelet Volume 6.9; Monocytes # (A) 0.4 k/uL (0-1.0); Monocytes % (A) 6 %; Neutrophils # (A) 5.4 k/uL (1.3-7.7); Neutrophils % (A) 80 %; Platelet Count 494 k/uL (150-450); Poikilocytosis Moderate; RBC 3.37 m/uL (3.80-5.40); RDW 15.9 % (11.5-15.5); WBC 6.8 k/uL (3.8-10.6)
[2021-04-29 12:13] LABS: MCV 85.9 fL (80.0-100.0)
--- NOTE | 2021-04-29 12:22 | XR ---
EXAMINATION TYPE: XR chest 2V DATE OF EXAM: 04/29/2021 COMPARISON: 03/14/2021 TECHNIQUE: PA and lateral views submitted. HISTORY: Difficulty breathing FINDINGS: Left lower lobe infiltrate. Calcified nodule left lung base. Coarsened interstitium with diffuse hype rinflation. Diffuse osteopenia with postsurgical change right shoulder. Calcified granuloma left lowe r lobe. Hyperinflation. Biapical pleural thickening. IMPRESSION: 1. COPD correlate for chronic interstitial pulmonary fibrosis superimposed pneumonitis not excluded. 2. Basilar infiltrates appear improved relative to prior exam..
[2021-04-29 12:24] LABS: ALT 11 U/L (4-34); AST 28 U/L (14-36); African American GFR (CKD) >90 (>60 ml/min/1.73 sqM); Alkaline Phosphatase 80 U/L (38-126); Anion Gap 8 mmol/L; Blood Urea Nitrogen 14 mg/dL (7-17); Calcium 8.7 mg/dL (8.4-10.2); Carbon Dioxide 26 mmol/L (22-30); Chloride 102 mmol/L (98-107); Glucose 102 mg/dL (74-99); Magnesium 1.6 mg/dL (1.6-2.3); Non-African American GFR(CKD) 83 (>60 ml/min/1.73 sqM); Sodium 136 mmol/L (137-145); Total Bilirubin 0.6 mg/dL (0.2-1.3)
[2021-04-29 12:32] LABS: Prothrombin Time 10.4 sec (9.0-12.0)
[2021-04-29] MEDS ORDERED: methylPREDNISolone SOD SUCCI 125 MG/2 ML VIAL IV STA (12:38)
[2021-04-29 12:41] LABS: Partial Thromboplastin Time 21.6 sec (22.0-30.0)
[2021-04-29] MEDS ORDERED: POTASSIUM CHLORIDE ER 20 MEQ TAB.ER PO STA (12:59)
[2021-04-29] MEDS ORDERED: POTASSIUM CHLORIDE 20 MEQ in WATER FOR INJECTION 1 100ML.BAG IVPB STA (12:59)
[2021-04-29 13:07] LABS: Appearance,Urine Cloudy (Clear); Bilirubin,Urine Negative (Negative); Blood,Urine Negative (Negative); Color,Urine Yellow; Glucose,Urine (UA) Negative (Negative); Hyaline Casts,Urine 1 /lpf (0-2); Ketones,Urine Negative (Negative); Leukocyte Esterase,Urine Trace (Negative); Mucus,Urine Rare /hpf; Nitrite,Urine Negative (Negative); Protein,Urine 1+ (Negative); RBC,Urine 1 /hpf (0-5); Specific Gravity,Urine 1.018 (1.001-1.035); Squamous Epithelial Cell,Urine 22 /hpf (0-4); Urobilinogen,Urine <2.0 mg/dL (<2.0); WBC,Urine 3 /hpf (0-5)
[2021-04-29] MEDS ORDERED: HEPARIN SODIUM 1,000 UN/ML (10ML VL) IV ONE (13:14)
[2021-04-29] MEDS ORDERED: HEPARIN SOD,PORK IN 0.45% NACL 25,000 UNIT in 0.45% NACL 1 250ML.BAG IV SCH (13:15)
--- NOTE | 2021-04-29 13:52 | CT ---
CT CHEST FOR PULMONARY EMBOLISM. EXAMINATION TYPE: CT chest angio for PE DATE OF EXAM: 04/29/2021 INDICATION: Solitary pulmonary nodule CT DLP: 134.4 mGycm, Automated exposure control for dose reduction was used. CONTRAST: Patient injected with 0 mL of Isovue 300. COMPARISON: CT 03/07/2018, chest x-ray 04/29/2021 TECHNIQUE: CT of the chest is performed on a spiral scan at 2 mm thick sections. Study is performed with intravenous contrast timed for evaluation for pulmonary embolism. This will limit additional po rtions of the evaluation. 3-D MIP images reconstructed by the technologist are reviewed on the compu ter in the coronal and sagittal planes. FINDINGS: No persistent filling defects are evident to suggest an acute pulmonary embolism. No mediastinal or hilar adenopathy enlarged by CT criteria is evident. The ascending aorta diameter at the level of the main pulmonary artery is 3.1 cm. The main pulmonary artery diameter at the bifur cation is 3.1 cm. There is a small right pleural effusion. Stents of emphysematous changes are present. There may be so me thickening within the right middle lobe. Series 601 image 61. This is an interval change. PET/CT is recommended for additional evaluation. Large calcification is in the posterior lateral left lung. Limited CT section through the upper abdomen are unremarkable. IMPRESSIONS: 1. No acute pulmonary embolism. 2. Extensive emphysematous changes. 3. Some irregular increased density within the right middle lobe. Consider PET CT when the patient is stable for additional evaluation.
[2021-04-29] MEDS ORDERED: ACETAMINOPHEN TAB 325 MG TAB PO PRN (13:57)
[2021-04-29] MEDS ORDERED: methylPREDNISolone SOD SUCCI 125 MG/2 ML VIAL IV SCH (18:00)
[2021-04-29] MEDS: METOPROLOL TARTRATE 25 MG TAB PO SCH (20:28)
[2021-04-29] MEDS: SERTRALINE 25 MG TAB PO SCH (20:28)
[2021-04-29] MEDS: ATORVASTATIN 40 MG TAB PO SCH (20:28)
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
[2021-04-29] MEDS: methylPREDNISolone SOD SUCCI 40 MG/ML 1 ML VIAL IV SCH (23:49)
[2021-04-30 02:32] LABS: Basophils % (A) 0 %; Eosinophils % (A) 0 %; HCT 25.4 % (34.0-46.0); Hypochromasia Marked; Lymphocytes # (A) 0.6 k/uL (1.0-4.8); Lymphocytes % (A) 11 %; MCH 27.1 pg (25.0-35.0); MCHC 31.6 g/dL (31.0-37.0); MCV 85.7 fL (80.0-100.0); Mean Platelet Volume 7.1; Monocytes # (A) 0.1 k/uL (0-1.0); Monocytes % (A) 2 %; Neutrophils # (A) 4.3 k/uL (1.3-7.7); Neutrophils % (A) 86 %; Platelet Count 473 k/uL (150-450); Poikilocytosis Slight; RBC 2.96 m/uL (3.80-5.40); RDW 15.4 % (11.5-15.5)
[2021-04-30 03:33] LABS: African American GFR (CKD) >90 (>60 ml/min/1.73 sqM); Anion Gap 6 mmol/L; Blood Urea Nitrogen 19 mg/dL (7-17); Calcium 8.4 mg/dL (8.4-10.2); Carbon Dioxide 26 mmol/L (22-30); Chloride 104 mmol/L (98-107); Glucose 152 mg/dL (74-99); Non-African American GFR(CKD) 85 (>60 ml/min/1.73 sqM); Potassium 4.5 mmol/L (3.5-5.1); Sodium 136 mmol/L (137-145)
[2021-04-30] MEDS: PANTOPRAZOLE 40 MG TABLET PO SCH (05:37)
[2021-04-30] MEDS: LEVOTHYROXINE 75 MCG TAB PO SCH (05:37)
[2021-04-30] MEDS: FORMOTEROL FUMARATE 20 MCG/2 ML NEBU INHALATION SCH ×2 (07:26→21:20)
[2021-04-30] MEDS: IPRATROPIUM 0.5 MG/2.5 ML NEBU INHALATION SCH ×4 (07:26→21:20)
[2021-04-30] MEDS: methylPREDNISolone SOD SUCCI 40 MG/ML 1 ML VIAL IV SCH ×2 (08:29→16:49)
[2021-04-30] MEDS: ISOSORBIDE MONONITRATE ER 30 MG TAB.ER.24H PO SCH (08:29)
[2021-04-30] MEDS: LOSARTAN 25 MG TAB PO SCH (08:29)
[2021-04-30] MEDS: METOPROLOL TARTRATE 25 MG TAB PO SCH ×2 (08:29→20:59)
[2021-04-30 09:34] LABS: % Iron Saturation 4.02 (12.00-45.00); Iron 12 ug/dL (50-170); Total Iron Binding Capacity 301 ug/dL (228-460)
[2021-04-30] MEDS: APIXABAN 2.5 MG TABLET PO SCH ×2 (13:29→21:00)
--- NOTE | 2021-04-30 14:34 | P.PN ---
Subjective Progress Note Date: 04/30/21 Principal diagnosis: Acute COPD exacerbation Elevated troponin level. Normocytic anemia Patient is a 85-year-old female with a known history of paroxysmal atrial fibrillation on anticoagulation with Eliquis, COPD, history of Brugada syndrome, COPD, hypertension, hyperlipidemia, hypothyroidism, osteoarthritis, history of bladder cancer status post chemo instillation and previous history of smoking presents to ER with complaints of difficulty in breathing. Patient is a poor historian. Patient going shortness of breath for the past 1 month and getting worse for the last few days. Patient was found to be hypoxic with pulse ox in 70s at home. She came to ER for evaluation. Otherwise patient denied any complaints of fever or chills. Cough without any sputum production. No chest pain. No palpitations. No nausea vomiting abdominal pain or diarrhea. Denies any dysuria or hematuria. Denies any recent illnesses or sick contacts. Chest x-ray showed COPD correlate for chronic interstitial pulmonary fibrosis superimposed pneumonitis not excluded.Patient is somewhat poor historian. Basilar infiltrates appear improved related to prior exam. EKG showed normal sinus rhythm. Laboratory data showed WBC 6.8 hemoglobin 9.4 and platelets 494 lymphocytes 0.6 D-dimer 1.25 Sodium 136 potassium 3.0 chloride 102 BUN 14 creatinine 0.61 Troponin 0 0.171 and 0.142 proBNP 4830 Urinalysis showed cloudy with trace leukoesterase and no WBCs and RBCs. Coronavirus PCR not detected. 04/30/2021 Patient is awake alert and oriented 3. Breathing status is much improved now. Mild expiratory wheezing otherwise patient is on room air. Patient is being continued on Solu-Medrol IV 40 mg every 8 hourly and DuoNeb's. Troponin level went up to 0.184. First started on heparin drip and cardiology was consulted. patient otherwise denied any chest pain. No nausea vomiting or abdominal pain or diarrhea. Denied any dysuria or hematuria. No cough or sputum production. Laboratory data showed sodium 136 potassium 4.5 BUN 19 creatinine 0.58 There is a 5.0 hemoglobin 8.[address] angiogram showed no acute PE extensive emphysematous changes. Some irregular increased density within the right middle lobe. Because of PET/CT and the patient is stable for additional evaluation.. Current medications reviewed. Objective - Vital Signs Vital signs: Vital Signs Temp 98.3 F 04/30/21 12:06 Pulse 76 04/30/21 12:06 Resp 20 04/30/21 12:06 BP 113/58 04/30/21 12:06 Pulse Ox 96 04/30/21 12:06 Intake & Output 04/29/21 04/30/21 04/30/21 18:59 06:59 18:59 Intake Total 250 554.857 490 Output Total 600 Balance 250 554.857 -110 Weight 36.287 kg 37 kg 37 kg Intake: IV 10 20 Invasive Line 2 10 20 Intake, IV Titration 74.857 Amount Heparin Sod,Pork in 0.45% 74.857 NaCl 25,000 unit In 0.45 % NaCl 1 250ml.bag @ 12 UNITS/KG/HR 4.354 mls/hr IV .Q24H [facility] Rx#: [id number] Oral 240 480 470 Output: Urine 600 Other: # Voids 1 2 - Exam PHYSICAL EXAMINATION: Patient is lying in the bed comfortably, no acute distress, awake alert and oriented.. HEENT: Normocephalic. Neck is supple. Pupils reactive. Nostrils clear. Oral cavity is moist. Neck reveals no JVD, carotid bruits, or thyromegaly. CHEST EXAMINATION: Trachea is central. Symmetrical expansion. Bibasilar diminished sounds and mild expiratory wheeze. Nonlabored breathing.. CARDIAC: Normal S1, S2 with no gallops. No murmurs ABDOMEN: Soft. Bowel sounds normal. No organomegaly. No abdominal bruits. Extremities: reveal no edema. No clubbing or cyanosis Neurologically awake, alert, oriented x3 with well-coordinated movements. No focal deficits noted Skin: No rash or skin lesions. Psychiatric: Coperative. Nonsuicidal Musculoskeletal: No joint swelling or deformity. Normal range of motion. - Labs CBC & Chem 7: 04/30/21 02:10 04/30/21 02:10 Labs: Abnormal Lab Results - Last 24 Hours (Table) 04/29/21 04/30/21 04/30/21 Range/Units 18:31 02:10 02:10 RBC (3.80-5.40) m/uL Hgb (11.4-16.0) gm/dL Hct (34.0-46.0) % Plt Count (150-450) k/uL Lymphocytes # (1.0-4.8) k/uL APTT (22.0-30.0) sec Sodium 136 L (137-145) mmol/L BUN 19 H (7-17) mg/dL Glucose 152 H (74-99) mg/dL Iron 12 L (50-170) ug/dL % Saturation 4.02 L (12.00-45.00) Troponin I 0.142 H* 0.184 H* (0.000-0.034) ng/mL Vitamin B12 1264.0 H (200.0-944.0) pg/mL 04/30/21 04/30/21 04/30/21 Range/Units 02:10 03:54 11:05 RBC 2.96 L (3.80-5.40) m/uL Hgb 8.0 L (11.4-16.0) gm/dL Hct 25.4 L (34.0-46.0) % Plt Count 473 H (150-450) k/uL Lymphocytes # 0.6 L (1.0-4.8) k/uL APTT 31.8 H 43.8 H (22.0-30.0) sec Sodium (137-145) mmol/L BUN (7-17) mg/dL Glucose (74-99) mg/dL Iron (50-170) ug/dL % Saturation (12.00-45.00) Troponin I (0.000-0.034) ng/mL Vitamin B12 (200.0-944.0) pg/mL Assessment and Plan Assessment: Worsening shortness of breath likely secondary to acute COPD exacerbation with chest x-ray findings of pulmonary fibrosis and interstitial pneumonitis cannot be excluded. Elevated troponin level possible demand ischemia. Troponin trending down. Elevated BNP level Severe hypokalemia 3.0 Hypovolemic hyponatremia Normocytic anemia with hemoglobin level 9.4 Paroxysmal atrial fibrillation on anticoagulation with Eliquis at home History of Brugada syndrome COPD not on home oxygen Hypertension Hyperlipidemia Hypothyroidism History of bladder cancer status post chemo instillation. Previous history of smoking Osteoarthritis. Plan: Patient will be continued on oxygen supplementation as needed. Continue with IV steroids and duo nebs. Patient was started on heparin drip due to elevated troponin level.. Continue to trend troponin level and 2D echocardiogram was ordered. Cardiology was consulted.. Continued home medications and follow-up CBC and BMP tomorrow. Prognosis guarded at this time. Time with Patient: Greater than 30
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
[2021-04-30] MEDS: ATORVASTATIN 40 MG TAB PO SCH (20:59)
[2021-04-30] MEDS: SERTRALINE 25 MG TAB PO SCH (20:59)
[2021-05-01] MEDS: methylPREDNISolone SOD SUCCI 40 MG/ML 1 ML VIAL IV SCH ×3 (00:06→16:53)
[2021-05-01] MEDS: LEVOTHYROXINE 75 MCG TAB PO SCH (05:38)
[2021-05-01] MEDS: PANTOPRAZOLE 40 MG TABLET PO SCH (05:39)
[2021-05-01 06:11] LABS: Glucose,Whole Blood 134 mg/dL (75-99)
[2021-05-01] MEDS: INSULIN ASPART (NovoLOG) 100 UNIT/ML VIAL SQ SCH ×5 (06:16→21:01)
[2021-05-01] MEDS: LOSARTAN 25 MG TAB PO SCH (08:15)
[2021-05-01] MEDS: APIXABAN 2.5 MG TABLET PO SCH ×2 (08:15→20:59)
[2021-05-01] MEDS: ISOSORBIDE MONONITRATE ER 30 MG TAB.ER.24H PO SCH (08:15)
[2021-05-01] MEDS: METOPROLOL TARTRATE 25 MG TAB PO SCH ×2 (08:15→20:59)
[2021-05-01] MEDS: FORMOTEROL FUMARATE 20 MCG/2 ML NEBU INHALATION SCH ×2 (11:11→21:05)
[2021-05-01] MEDS: IPRATROPIUM 0.5 MG/2.5 ML NEBU INHALATION SCH ×4 (11:12→21:05)
[2021-05-01 12:02] LABS: Glucose,Whole Blood 167 mg/dL (75-99)
[2021-05-01] MEDS: FERROUS SULFATE 325 MG TAB PO SCH (12:13)
[2021-05-01] MEDS ORDERED: LOSARTAN 25 MG TAB PO ONE (16:15)
[2021-05-01 16:38] LABS: Glucose,Whole Blood 113 mg/dL (75-99)
[2021-05-01] MEDS ORDERED: QUEtiapine 25 MG TAB PO PRN (17:06)
--- NOTE | 2021-05-01 17:41 | PN ---
PROGRESS NOTE FOLLOW-UP NOTE: This 85-year-old lady has a history of paroxysmal atrial fibrillation, Brugada syndrome, hypothyroidism and dyslipidemia. She presented to hospital with shortness of breath and elevated BNP and is currently being treated as congestive heart failure. Her symptoms have improved significantly. She is not short of breath. CURRENT MEDICATIONS: Current medications include Eliquis, Lipitor, Imdur, Cozaar and Lopressor. LABS: Labs show a hemoglobin of 8, potassium is 4.5. Creatinine is 0.5. Troponin is elevated at 0.1. PHYSICAL EXAMINATION: Comfortable at rest. Vital signs are stable. Chest exam reveals diminished air entry at the bases. Heart exam reveals first and second heart sounds and ejection systolic murmur in the aortic area. Abdomen is soft. Examination of extremities did not reveal any edema. Peripheral pulses are felt. ASSESSMENT: 1. Elevated troponin secondary to supply/demand mismatch. 2. Paroxysmal atrial fibrillation. 3. Anemia. 4. Hypokalemia. 5. Pulmonary fibrosis. PLAN: Patient will continue current medications, including the nebulizers. Patient is not in overt heart failure at the moment. MMODL / IJN: [id number] /
[2021-05-01 20:35] LABS: Glucose,Whole Blood 180 mg/dL (75-99)
[2021-05-01] MEDS: ATORVASTATIN 40 MG TAB PO SCH (20:59)
[2021-05-01] MEDS: SERTRALINE 25 MG TAB PO SCH (20:59)
--- NOTE | 2021-05-01 22:56 | P.PN ---
Subjective Progress Note Date: 05/01/21 Principal diagnosis: Acute COPD exacerbation Elevated troponin level. Normocytic anemia Patient is a 85-year-old female with a known history of paroxysmal atrial fibrillation on anticoagulation with Eliquis, COPD, history of Brugada syndrome, COPD, hypertension, hyperlipidemia, hypothyroidism, osteoarthritis, history of bladder cancer status post chemo instillation and previous history of smoking presents to ER with complaints of difficulty in breathing. Patient is a poor historian. Patient going shortness of breath for the past 1 month and getting worse for the last few days. Patient was found to be hypoxic with pulse ox in 70s at home. She came to ER for evaluation. Otherwise patient denied any complaints of fever or chills. Cough without any sputum production. No chest pain. No palpitations. No nausea vomiting abdominal pain or diarrhea. Denies any dysuria or hematuria. Denies any recent illnesses or sick contacts. Chest x-ray showed COPD correlate for chronic interstitial pulmonary fibrosis superimposed pneumonitis not excluded.Patient is somewhat poor historian. Basilar infiltrates appear improved related to prior exam. EKG showed normal sinus rhythm. Laboratory data showed WBC 6.8 hemoglobin 9.4 and platelets 494 lymphocytes 0.6 D-dimer 1.25 Sodium 136 potassium 3.0 chloride 102 BUN 14 creatinine 0.61 Troponin 0 0.171 and 0.142 proBNP 4830 Urinalysis showed cloudy with trace leukoesterase and no WBCs and RBCs. Coronavirus PCR not detected. 04/30/2021 Patient is awake alert and oriented 3. Breathing status is much improved now. Mild expiratory wheezing otherwise patient is on room air. Patient is being continued on Solu-Medrol IV 40 mg every 8 hourly and DuoNeb's. Troponin level went up to 0.184. First started on heparin drip and cardiology was consulted. patient otherwise denied any chest pain. No nausea vomiting or abdominal pain or diarrhea. Denied any dysuria or hematuria. No cough or sputum production. Laboratory data showed sodium 136 potassium 4.5 BUN 19 creatinine 0.58 There is a 5.0 hemoglobin 8.[address] angiogram showed no acute PE extensive emphysematous changes. Some irregular increased density within the right middle lobe. Because of PET/CT and the patient is stable for additional evaluation.. 05/01/2021 Patient is currently lying in bed. Awake alert and oriented x3. Breathing status is much better today. Patient is being continued on IV steroids. cnaged to PO. Patient was seen by cardiology due to elevated troponin level. And he added losartan. 2D echocardiogram was ordered. Continued on breathing treatments. Laboratory data showed WBC 5.0 hemoglobin 8.0 and platelets 473 lymphocytes 0.6 BUN 19 and creatinine 0.58 Troponin 0 0.184 and B12 level 1264 and TSH is 0.71 Continued on telemetry monitoring. Current medications reviewed. Current medications reviewed. Objective - Vital Signs Vital signs: Vital Signs Temp 97.9 F 05/01/21 20:00 Pulse 78 05/01/21 21:05 Resp 16 05/01/21 20:00 BP 155/68 05/01/21 20:00 Pulse Ox 92 L 05/01/21 20:00 Intake & Output 05/01/21 05/01/21 05/02/21 06:59 18:59 06:59 Intake Total 600 Balance 600 Weight 40.5 kg Intake: IV 20 Invasive Line 3 20 Oral 580 Other: # Voids 1 2 - Exam PHYSICAL EXAMINATION: Patient is lying in the bed comfortably, no acute distress, awake alert and oriented.. HEENT: Normocephalic. Neck is supple. Pupils reactive. Nostrils clear. Oral cavity is moist. Neck reveals no JVD, carotid bruits, or thyromegaly. CHEST EXAMINATION: Trachea is central. Symmetrical expansion. Bilateral air entry improved. Mild expiratory wheezing.. Nonlabored breathing.. CARDIAC: Normal S1, S2 with no gallops. No murmurs ABDOMEN: Soft. Bowel sounds normal. No organomegaly. No abdominal bruits. Extremities: reveal no edema. No clubbing or cyanosis Neurologically awake, alert, oriented x3 with well-coordinated movements. No focal deficits noted Skin: No rash or skin lesions. Psychiatric: Coperative. Nonsuicidal Musculoskeletal: No joint swelling or deformity. Normal range of motion. - Labs CBC & Chem 7: 04/30/21 02:10 04/30/21 02:10 Labs: Abnormal Lab Results - Last 24 Hours (Table) 05/01/21 05/01/21 05/01/21 Range/Units 06:08 11:59 16:35 POC Glucose (mg/dL) 134 H 167 H 113 H (75-99) mg/dL 05/01/21 Range/Units 20:20 POC Glucose (mg/dL) 180 H (75-99) mg/dL Assessment and Plan Assessment: Worsening shortness of breath likely secondary to acute COPD exacerbation with chest x-ray findings of pulmonary fibrosis and interstitial pneumonitis cannot be excluded. Elevated troponin level possible demand ischemia. Troponin trending down. Elevated BNP level Severe hypokalemia 3.0 Hypovolemic hyponatremia Normocytic anemia with hemoglobin level 9.4 Iron deficiency anemia. Paroxysmal atrial fibrillation on anticoagulation with Eliquis at home History of Brugada syndrome COPD not on home oxygen Hypertension Hyperlipidemia Hypothyroidism History of bladder cancer status post chemo instillation. Previous history of smoking Osteoarthritis. Plan: Patient will be continued on oxygen supplementation as needed. Continue with PO steroids and duo nebs. Patient was started on heparin drip due to elevated troponin level..stopped now. Continue to trend troponin level and 2D echocardiogram was ordered. Cardiology is following.. Continued home medications and follow-up CBC and BMP tomorrow. Prognosis guarded at this time. Time with Patient: Greater than 30
[2021-05-02] MEDS: INSULIN ASPART (NovoLOG) 100 UNIT/ML VIAL SQ SCH ×4 (06:23→21:44)
[2021-05-02 06:25] LABS: Glucose,Whole Blood 122 mg/dL (75-99)
[2021-05-02] MEDS: PANTOPRAZOLE 40 MG TABLET PO SCH (06:46)
[2021-05-02] MEDS: LEVOTHYROXINE 75 MCG TAB PO SCH (06:46)
[2021-05-02] MEDS: LOSARTAN 50 MG TAB PO SCH (07:46)
[2021-05-02] MEDS: ISOSORBIDE MONONITRATE ER 30 MG TAB.ER.24H PO SCH (07:46)
[2021-05-02] MEDS: METOPROLOL TARTRATE 25 MG TAB PO SCH ×2 (07:46→21:44)
[2021-05-02] MEDS: predniSONE 10 MG TAB PO SCH (07:46)
[2021-05-02] MEDS: APIXABAN 2.5 MG TABLET PO SCH ×2 (07:46→21:44)
[2021-05-02] MEDS: FORMOTEROL FUMARATE 20 MCG/2 ML NEBU INHALATION SCH ×2 (08:38→18:57)
[2021-05-02] MEDS: IPRATROPIUM 0.5 MG/2.5 ML NEBU INHALATION SCH ×4 (08:38→18:57)
[2021-05-02 11:16] LABS: Basophils % (A) 0 %; Eosinophils % (A) 0 %; HCT 23.2 % (34.0-46.0); HGB 7.1 gm/dL (11.4-16.0); Hypochromasia Marked; Lymphocytes # (A) 0.5 k/uL (1.0-4.8); Lymphocytes % (A) 5 %; MCH 26.9 pg (25.0-35.0); MCHC 30.4 g/dL (31.0-37.0); MCV 88.2 fL (80.0-100.0); Mean Platelet Volume 7.2; Monocytes # (A) 0.5 k/uL (0-1.0); Monocytes % (A) 4 %; Neutrophils % (A) 90 %; Platelet Count 453 k/uL (150-450); Poikilocytosis Slight; RBC 2.63 m/uL (3.80-5.40); RDW 15.3 % (11.5-15.5); WBC 11.1 k/uL (3.8-10.6)
[2021-05-02 11:26] LABS: Calcium 8.4 mg/dL (8.4-10.2); Potassium 4.2 mmol/L (3.5-5.1)
[2021-05-02 11:34] LABS: Glucose,Whole Blood 143 mg/dL (75-99)
[2021-05-02] MEDS: FERROUS SULFATE 325 MG TAB PO SCH (12:25)
--- NOTE | 2021-05-02 13:11 | P.PN ---
Subjective Progress Note Date: 05/02/21 HISTORY OF PRESENT ILLNESS: HISTORY OF PRESENTING ILLNESS This is a pleasant 39-rlqg-my[age]-year-old female past medical history significant for proximal A. fib on anticoagulation on Eliquis, history of Brugada syndrome, COPD, hypertension, hyperlipidemia, hypothyroidism, osteoarthritis, bladder cancer status post chemo, and patient is a former smoker. Patient follows in the office with Dr Danielson. We have been asked to see in consultation for elevated troponins. Patient presented to the emergency room with hypoxic with a pulse ox in the 70s. At the time of exam patient is on a heparin drip. D-dimer was 1.25, CTA was negative for pulmonary embolism. Patient's BNP was 4830 correlated for CHF. Troponins were elevated at 0.182, 0.142, 0.171. Patient's hemoglobin is 8 today, and her iron is low at 12. Patient came in hypokalemic, today potassium is 4.5. Blood pressure is elevated at 172/77, nurse states patient hadn't received her morning medications at that time. Blood pressure better controlled at 113/58 after receiving morning meds. Patient's heart rate is controlled at 76, she is on 4 L nasal cannula O2 is 96%. Patient is afebrile. Patient's TSH was within normal limits at 0.711. DIAGNOSTICS EKG reveals shows the patient sinus rhythm with a controlled rate Chest x-ray showed COPD correlated for chronic interstitial pulmonary fibrosis pneumonitis not excluded. Basilar infiltrates appear improved when related to prior exam. 05/02/2021 Patient examined this morning at the bedside. Patient denies chest pain or pressure. Denies shortness of breath. Patient remains in sinus mechanism. She is anticoagulated with Eliquis. Blood pressure 164/75. 2-D echo is pending. PHYSICAL EXAM: VITAL SIGNS: Reviewed. GENERAL: Well-developed in no acute distress. NECK: Supple. No JVD or thyromegaly LUNGS: Respirations even and unlabored. Lungs diminished to auscultation bilaterally. HEART: Regular rate and rhythm. S1 and S2 heard. EXTREMITIES: Normal range of motion. No clubbing or cyanosis. Peripheral pulses intact. No lower extremity edema ASSESSMENT: Possible acute diastolic congestive heart failure, resolved Acute COPD exacerbation Elevated troponins, likely secondary to type II MN secondary to oxygen supply and demand mismatch Paroxysmal atrial fibrillation, on anticoagulation with Eliquis Hypertension Hypokalemia Hypothyroidism History of Brugada syndrome PLAN: Continue current cardiac medications Continue telemetry monitoring Continue to monitor blood pressure 2D echo ordered. Await results Patient is currently stable from a cardiac standpoint. Nurse practitioner note has been reviewed by physician. Signing provider agrees with the documented findings, assessment, and plan of care. Objective - Vital Signs Vital signs: Vital Signs Temp 98.6 F 05/02/21 12:17 Pulse 70 05/02/21 07:40 Resp 16 05/02/21 12:30 BP 164/75 05/02/21 12:17 Pulse Ox 91 L 05/02/21 12:30 Intake & Output 05/01/21 05/02/21 05/02/21 18:59 06:59 18:59 Intake Total 600 250 Balance 600 250 Weight 40 kg Intake: IV 20 10 Invasive Line 3 20 10 Oral 580 240 Other: # Voids 2 1 - Labs CBC & Chem 7: 05/02/21 10:47 05/02/21 10:47 Labs: Abnormal Lab Results - Last 24 Hours (Table) 04/30/21 05/01/21 05/01/21 Range/Units 02:10 16:35 20:20 WBC (3.8-10.6) k/uL RBC (3.80-5.40) m/uL Hgb (11.4-16.0) gm/dL Hct (34.0-46.0) % MCHC (31.0-37.0) g/dL Plt Count (150-450) k/uL Neutrophils # (1.3-7.7) k/uL Lymphocytes # (1.0-4.8) k/uL BUN (7-17) mg/dL Glucose (74-99) mg/dL POC Glucose (mg/dL) 113 H 180 H (75-99) mg/dL RBC Folate 1,453 H (280 - 791) ng/mL 05/02/21 05/02/21 05/02/21 Range/Units 06:22 10:47 10:47 WBC 11.1 H (3.8-10.6) k/uL RBC 2.63 L (3.80-5.40) m/uL Hgb 7.1 L (11.4-16.0) gm/dL Hct 23.2 L (34.0-46.0) % MCHC 30.4 L (31.0-37.0) g/dL Plt Count 453 H (150-450) k/uL Neutrophils # 10.0 H (1.3-7.7) k/uL Lymphocytes # 0.5 L (1.0-4.8) k/uL BUN 26 H (7-17) mg/dL Glucose 124 H (74-99) mg/dL POC Glucose (mg/dL) 122 H (75-99) mg/dL RBC Folate (280 - 791) ng/mL 05/02/21 Range/Units 11:32 WBC (3.8-10.6) k/uL RBC (3.80-5.40) m/uL Hgb (11.4-16.0) gm/dL Hct (34.0-46.0) % MCHC (31.0-37.0) g/dL Plt Count (150-450) k/uL Neutrophils # (1.3-7.7) k/uL Lymphocytes # (1.0-4.8) k/uL BUN (7-17) mg/dL Glucose (74-99) mg/dL POC Glucose (mg/dL) 143 H (75-99) mg/dL RBC Folate (280 - 791) ng/mL
--- NOTE | 2021-05-02 16:00 | ECHOF ---
Referral Reason:positive trops MEASUREMENTS -------- HEIGHT: 162.6 cm WEIGHT: 39.9 kg BP: 173/73 IVSd: 1.5 cm (0.6 - 1.1) LVIDd: 3.3 cm (3.9 - 5.3) LVPWd: 1.4 cm (0.6 - 1.1) EDV(Teich): 43 ml IVSs: 1.7 cm LVIDs: 2.1 cm LVPWs: 1.8 cm %IVS Thck: 16 % ESV(Teich): 15 ml EF(Teich): 66 % %FS: 35 % SV(Teich): 28 ml FINDINGS -------- Sinus rhythm. Limited Study The left ventricular size is normal. There is moderate concentric left ventricular hypertrophy. O verall left ventricular systolic function is normal with, an EF between 55 - 60 %. There is no pericardial effusion. CONCLUSIONS -------- 1. The left ventricular size is normal. 2. There is moderate concentric left ventricular hypertrophy. 3. Overall left ventricular systolic function is normal with, an EF between 55 - 60 %. HEALTH CARE ATTORNEY: Evelin Freitas [facility]
[2021-05-02 16:48] LABS: Glucose,Whole Blood 164 mg/dL (75-99)
[2021-05-02] MEDS: amLODIPine 2.5 MG TAB PO SCH (17:06)
[2021-05-02] MEDS: IPRATROPIUM-ALBUTEROL 3 ML NEB INHALATION PRN (18:57)
[2021-05-02 20:11] LABS: Glucose,Whole Blood 149 mg/dL (75-99)
[2021-05-02] MEDS: SERTRALINE 25 MG TAB PO SCH (21:44)
[2021-05-02] MEDS: ATORVASTATIN 40 MG TAB PO SCH (21:44)
[2021-05-03] MEDS: INSULIN ASPART (NovoLOG) 100 UNIT/ML VIAL SQ SCH ×2 (06:12→12:30)
[2021-05-03 06:14] LABS: Glucose,Whole Blood 99 mg/dL (75-99)
[2021-05-03] MEDS: PANTOPRAZOLE 40 MG TABLET PO SCH (06:15)
[2021-05-03] MEDS: LEVOTHYROXINE 75 MCG TAB PO SCH (06:15)
[2021-05-03 08:30] LABS: Appearance,Urine Cloudy (Clear); Bacteria,Urine Occasional /hpf; Bilirubin,Urine Negative (Negative); Blood,Urine Negative (Negative); Color,Urine Yellow; Glucose,Urine (UA) Negative (Negative); Hyaline Casts,Urine 2 /lpf (0-2); Ketones,Urine Negative (Negative); Leukocyte Esterase,Urine Negative (Negative); Mucus,Urine Rare /hpf; Nitrite,Urine Negative (Negative); Protein,Urine Negative (Negative); RBC,Urine 19 /hpf (0-5); Specific Gravity,Urine 1.017 (1.001-1.035); Squamous Epithelial Cell,Urine 4 /hpf (0-4); Urobilinogen,Urine <2.0 mg/dL (<2.0); WBC,Urine 3 /hpf (0-5)
[2021-05-03] MEDS: ISOSORBIDE MONONITRATE ER 30 MG TAB.ER.24H PO SCH (09:01)
[2021-05-03] MEDS: LOSARTAN 50 MG TAB PO SCH (09:01)
[2021-05-03] MEDS: predniSONE 10 MG TAB PO SCH (09:01)
[2021-05-03] MEDS: APIXABAN 2.5 MG TABLET PO SCH ×2 (09:01→19:43)
[2021-05-03] MEDS: FERROUS SULFATE 325 MG TAB PO SCH (09:01)
[2021-05-03] MEDS: METOPROLOL TARTRATE 25 MG TAB PO SCH ×2 (09:01→19:43)
[2021-05-03] MEDS: amLODIPine 2.5 MG TAB PO SCH (09:01)
[2021-05-03] MEDS: FORMOTEROL FUMARATE 20 MCG/2 ML NEBU INHALATION SCH ×2 (09:17→19:16)
[2021-05-03] MEDS: IPRATROPIUM 0.5 MG/2.5 ML NEBU INHALATION SCH ×4 (09:18→19:16)
--- NOTE | 2021-05-03 10:17 | P.PN ---
Subjective Progress Note Date: 05/02/21 Principal diagnosis: Acute COPD exacerbation Elevated troponin level. Normocytic anemia Patient is a 85-year-old female with a known history of paroxysmal atrial fibrillation on anticoagulation with Eliquis, COPD, history of Brugada syndrome, COPD, hypertension, hyperlipidemia, hypothyroidism, osteoarthritis, history of bladder cancer status post chemo instillation and previous history of smoking presents to ER with complaints of difficulty in breathing. Patient is a poor historian. Patient going shortness of breath for the past 1 month and getting worse for the last few days. Patient was found to be hypoxic with pulse ox in 70s at home. She came to ER for evaluation. Otherwise patient denied any complaints of fever or chills. Cough without any sputum production. No chest pain. No palpitations. No nausea vomiting abdominal pain or diarrhea. Denies any dysuria or hematuria. Denies any recent illnesses or sick contacts. Chest x-ray showed COPD correlate for chronic interstitial pulmonary fibrosis superimposed pneumonitis not excluded.Patient is somewhat poor historian. Basilar infiltrates appear improved related to prior exam. EKG showed normal sinus rhythm. Laboratory data showed WBC 6.8 hemoglobin 9.4 and platelets 494 lymphocytes 0.6 D-dimer 1.25 Sodium 136 potassium 3.0 chloride 102 BUN 14 creatinine 0.61 Troponin 0 0.171 and 0.142 proBNP 4830 Urinalysis showed cloudy with trace leukoesterase and no WBCs and RBCs. Coronavirus PCR not detected. 04/30/2021 Patient is awake alert and oriented 3. Breathing status is much improved now. Mild expiratory wheezing otherwise patient is on room air. Patient is being continued on Solu-Medrol IV 40 mg every 8 hourly and DuoNeb's. Troponin level went up to 0.184. First started on heparin drip and cardiology was consulted. patient otherwise denied any chest pain. No nausea vomiting or abdominal pain or diarrhea. Denied any dysuria or hematuria. No cough or sputum production. Laboratory data showed sodium 136 potassium 4.5 BUN 19 creatinine 0.58 There is a 5.0 hemoglobin 8.[address] angiogram showed no acute PE extensive emphysematous changes. Some irregular increased density within the right middle lobe. Because of PET/CT and the patient is stable for additional evaluation.. 05/01/2021 Patient is currently lying in bed. Awake alert and oriented x3. Breathing status is much better today. Patient is being continued on IV steroids. cnaged to PO. Patient was seen by cardiology due to elevated troponin level. And he added losartan. 2D echocardiogram was ordered. Continued on breathing treatments. Laboratory data showed WBC 5.0 hemoglobin 8.0 and platelets 473 lymphocytes 0.6 BUN 19 and creatinine 0.58 Troponin 0 0.184 and B12 level 1264 and TSH is 0.71 Continued on telemetry monitoring. 05/02/2021 Patient is currently resting in the bed. Still having exertional dyspnea and also using oxygen at 2-4 L via nasal cannula. Patient is being continued on DuoNeb's and prednisone changed to by mouth 30 mg daily. Cardiology is on board as well due to elevated troponin level. Currently denied any complaints of chest pain. No nausea or vomiting. Tolerating oral diet. Patient was confused and delirious yesterday but seems to be improved today. Laboratory data showed WBC 11.1 hemoglobin 7.1 and platelets 453 BUN 26 and creatinine 0.88 Patient is on Eliquis 2.5 mg twice a day and metoprolol. PT OT will be consulted and Current medications reviewed. Objective - Vital Signs Vital signs: Vital Signs Temp 98.4 F 05/02/21 16:19 Pulse 80 05/02/21 19:12 Resp 16 05/02/21 16:19 BP 188/86 05/02/21 16:19 Pulse Ox 92 L 05/02/21 16:19 Intake & Output 05/02/21 05/02/21 05/03/21 06:59 18:59 06:59 Intake Total 360 240 Balance 360 240 Weight 40 kg Intake: IV 20 Invasive Line 3 20 Oral 340 240 Other: # Voids 1 - Exam PHYSICAL EXAMINATION: Patient is lying in the bed comfortably, no acute distress, awake alert and oriented.. HEENT: Normocephalic. Neck is supple. Pupils reactive. Nostrils clear. Oral cavity is moist. Neck reveals no JVD, carotid bruits, or thyromegaly. CHEST EXAMINATION: Trachea is central. Symmetrical expansion. Bilateral air entry improved. Mild expiratory wheezing.. Nonlabored breathing.. CARDIAC: Normal S1, S2 with no gallops. No murmurs ABDOMEN: Soft. Bowel sounds normal. No organomegaly. No abdominal bruits. Extremities: reveal no edema. No clubbing or cyanosis Neurologically awake, alert, oriented x3 with well-coordinated movements. No focal deficits noted Skin: No rash or skin lesions. Psychiatric: Coperative. Nonsuicidal Musculoskeletal: No joint swelling or deformity. Normal range of motion. - Labs CBC & Chem 7: 05/02/21 10:47 05/02/21 10:47 Labs: Abnormal Lab Results - Last 24 Hours (Table) 04/30/21 05/02/21 05/02/21 Range/Units 02:10 06:22 10:47 WBC 11.1 H (3.8-10.6) k/uL RBC 2.63 L (3.80-5.40) m/uL Hgb 7.1 L (11.4-16.0) gm/dL Hct 23.2 L (34.0-46.0) % MCHC 30.4 L (31.0-37.0) g/dL Plt Count 453 H (150-450) k/uL Neutrophils # 10.0 H (1.3-7.7) k/uL Lymphocytes # 0.5 L (1.0-4.8) k/uL BUN (7-17) mg/dL Glucose (74-99) mg/dL POC Glucose (mg/dL) 122 H (75-99) mg/dL RBC Folate 1,453 H (280 - 791) ng/mL 05/02/21 05/02/21 05/02/21 Range/Units 10:47 11:32 16:37 WBC (3.8-10.6) k/uL RBC (3.80-5.40) m/uL Hgb (11.4-16.0) gm/dL Hct (34.0-46.0) % MCHC (31.0-37.0) g/dL Plt Count (150-450) k/uL Neutrophils # (1.3-7.7) k/uL Lymphocytes # (1.0-4.8) k/uL BUN 26 H (7-17) mg/dL Glucose 124 H (74-99) mg/dL POC Glucose (mg/dL) 143 H 164 H (75-99) mg/dL RBC Folate (280 - 791) ng/mL 05/02/21 Range/Units 20:10 WBC (3.8-10.6) k/uL RBC (3.80-5.40) m/uL Hgb (11.4-16.0) gm/dL Hct (34.0-46.0) % MCHC (31.0-37.0) g/dL Plt Count (150-450) k/uL Neutrophils # (1.3-7.7) k/uL Lymphocytes # (1.0-4.8) k/uL BUN (7-17) mg/dL Glucose (74-99) mg/dL POC Glucose (mg/dL) 149 H (75-99) mg/dL RBC Folate (280 - 791) ng/mL Assessment and Plan Assessment: Worsening shortness of breath likely secondary to acute COPD exacerbation with chest x-ray findings of pulmonary fibrosis and interstitial pneumonitis cannot be excluded. Elevated troponin level possible demand ischemia. Troponin trending down. No complaints of chest pain. Elevated BNP level Possible acute on chronic CHF with diastolic dysfunction Severe hypokalemia 3.0 on admission. Replaced. Hypovolemic hyponatremia Normocytic anemia with hemoglobin level 9.4 Iron deficiency anemia. Paroxysmal atrial fibrillation on anticoagulation with Eliquis at home History of Brugada syndrome COPD not on home oxygen Hypertension Hyperlipidemia Hypothyroidism History of bladder cancer status post chemo instillation. Previous history of smoking Osteoarthritis. Plan: Patient will be continued on oxygen supplementation as needed. Continue with PO steroids and duo nebs. Patient was started on heparin drip due to elevated troponin level..stopped now. Continue to trend troponin level and 2D echocardiogram was ordered. Cardiology is following.. PT OT will be consulted and patient may need home oxygen as well. Continued home medications and follow-up CBC and BMP tomorrow. Prognosis guarde d at this time.
[2021-05-03 12:12] LABS: Glucose,Whole Blood 119 mg/dL (75-99)
[2021-05-03] MEDS ORDERED: FUROSEMIDE 10 MG/ML 2 ML VIAL IV ONE (12:30)
--- NOTE | 2021-05-03 12:44 | P.PN ---
Subjective Progress Note Date: 05/03/21 HISTORY OF PRESENT ILLNESS: HISTORY OF PRESENTING ILLNESS This is a pleasant 57-[id number]-year-old female past medical history significant for proximal A. fib on anticoagulation on Eliquis, history of Brugada syndrome, COPD, hypertension, hyperlipidemia, hypothyroidism, osteoarthritis, bladder cancer status post chemo, and patient is a former smoker. Patient follows in the office with Dr Danielson. We have been asked to see in consultation for elevated troponins. Patient presented to the emergency room with hypoxic with a pulse ox in the 70s. At the time of exam patient is on a heparin drip. D-dimer was 1.25, CTA was negative for pulmonary embolism. Patient's BNP was 4830 correlated for CHF. Troponins were elevated at 0.182, 0.142, 0.171. Patient's hemoglobin is 8 today, and her iron is low at 12. Patient came in hypokalemic, today potassium is 4.5. Blood pressure is elevated at 172/77, nurse states patient hadn't received her morning medications at that time. Blood pressure better controlled at 113/58 after receiving morning meds. Patient's heart rate is controlled at 76, she is on 4 L nasal cannula O2 is 96%. Patient is afebrile. Patient's TSH was within normal limits at 0.711. DIAGNOSTICS EKG reveals shows the patient sinus rhythm with a controlled rate Chest x-ray showed COPD correlated for chronic interstitial pulmonary fibrosis pneumonitis not excluded. Basilar infiltrates appear improved when related to prior exam. 05/02/2021 Patient examined this morning at the bedside. Patient denies chest pain or pressure. Denies shortness of breath. Patient remains in sinus mechanism. She is anticoagulated with Eliquis. Blood pressure 164/75. 2-D echo is pending. 05/03/2021 Patient examined this morning at the bedside. She denies chest pain or pressure. She denies shortness of breath. Echocardiogram completed revealing ejection fraction 55-60%. Patient's vital signs are stable. PHYSICAL EXAM: VITAL SIGNS: Reviewed. GENERAL: Well-developed in no acute distress. NECK: Supple. No JVD or thyromegaly LUNGS: Respirations even and unlabored. Lungs diminished to auscultation bilaterally. HEART: Regular rate and rhythm. S1 and S2 heard. EXTREMITIES: Normal range of motion. No clubbing or cyanosis. Peripheral pulses intact. No lower extremity edema ASSESSMENT: Possible acute diastolic congestive heart failure, resolved Acute COPD exacerbation Elevated troponins, likely secondary to type II DE secondary to oxygen supply and demand mismatch Paroxysmal atrial fibrillation, on anticoagulation with Eliquis Hypertension Hypokalemia Hypothyroidism History of Brugada syndrome PLAN: Continue current cardiac medications Patient is currently stable from a cardiac standpoint. We will sign off. Please reconsult if needed. Nurse practitioner note has been reviewed by physician. Signing provider agrees with the documented findings, assessment, and plan of care. Objective - Vital Signs Vital signs: Vital Signs Temp 98.2 F 05/03/21 09:00 Pulse 77 05/03/21 09:00 Resp 18 05/03/21 09:00 BP 150/61 05/03/21 09:00 Pulse Ox 92 L 05/03/21 09:00 Intake & Output 05/02/21 05/03/21 05/03/21 18:59 06:59 18:59 Intake Total 360 480 737 Balance 360 480 737 Weight 40.8 kg Intake: IV 20 Invasive Line 3 20 Oral 340 480 737 Other: Voiding Method Bedside Commode # Voids 1 1 - Labs CBC & Chem 7: 05/02/21 10:47 05/02/21 10:47 Labs: Abnormal Lab Results - Last 24 Hours (Table) 04/30/21 05/02/21 05/02/21 Range/Units 02:10 16:37 20:10 POC Glucose (mg/dL) 164 H 149 H (75-99) mg/dL RBC Folate 1,453 H (280 - 791) ng/mL Urine Appearance (Clear) Urine RBC (0-5) /hpf Urine Bacteria (None) /hpf Urine Mucus (None) /hpf 05/03/21 05/03/21 Range/Units 08:07 11:51 POC Glucose (mg/dL) 119 H (75-99) mg/dL RBC Folate (280 - 791) ng/mL Urine Appearance Cloudy H (Clear) Urine RBC 19 H (0-5) /hpf Urine Bacteria Occasional H (None) /hpf Urine Mucus Rare H (None) /hpf
[2021-05-03] MEDS: SERTRALINE 25 MG TAB PO SCH (19:43)
[2021-05-03] MEDS: ATORVASTATIN 40 MG TAB PO SCH (19:43)
[2021-05-04] MEDS: PANTOPRAZOLE 40 MG TABLET PO SCH (06:13)
[2021-05-04] MEDS: LEVOTHYROXINE 75 MCG TAB PO SCH (06:13)
[2021-05-04] MEDS: FORMOTEROL FUMARATE 20 MCG/2 ML NEBU INHALATION SCH (09:05)
[2021-05-04] MEDS: IPRATROPIUM 0.5 MG/2.5 ML NEBU INHALATION SCH ×3 (09:05→16:19)
[2021-05-04] MEDS: predniSONE 10 MG TAB PO SCH (09:14)
[2021-05-04] MEDS: APIXABAN 2.5 MG TABLET PO SCH (09:14)
[2021-05-04] MEDS: amLODIPine 2.5 MG TAB PO SCH (09:15)
[2021-05-04] MEDS: ISOSORBIDE MONONITRATE ER 30 MG TAB.ER.24H PO SCH (09:15)
[2021-05-04] MEDS: LOSARTAN 50 MG TAB PO SCH (09:15)
[2021-05-04] MEDS: METOPROLOL TARTRATE 25 MG TAB PO SCH (09:15)
[2021-05-04 11:02] LABS: Basophils % (A) 0 %; Eosinophils # (A) 0.3 k/uL (0-0.7); Eosinophils % (A) 3 %; HCT 28.5 % (34.0-46.0); HGB 8.4 gm/dL (11.4-16.0); Hypochromasia Marked; Lymphocytes # (A) 1.3 k/uL (1.0-4.8); Lymphocytes % (A) 13 %; MCH 26.5 pg (25.0-35.0); MCHC 29.6 g/dL (31.0-37.0); MCV 89.5 fL (80.0-100.0); Mean Platelet Volume 8.2; Monocytes # (A) 0.6 k/uL (0-1.0); Monocytes % (A) 6 %; Neutrophils # (A) 7.6 k/uL (1.3-7.7); Neutrophils % (A) 76 %; Platelet Count 499 k/uL (150-450); Poikilocytosis Slight; RBC 3.18 m/uL (3.80-5.40); RDW 15.3 % (11.5-15.5); WBC 9.9 k/uL (3.8-10.6)
[2021-05-04] MEDS: FERROUS SULFATE 325 MG TAB PO SCH (11:13)
[2021-05-04 11:19] LABS: Calcium 8.8 mg/dL (8.4-10.2); Potassium 3.9 mmol/L (3.5-5.1)
[2021-05-04 13:54] VITALS: BMI 15.0
--- NOTE | 2021-05-04 14:51 | P.PN ---
Subjective Progress Note Date: 05/03/21 Principal diagnosis: Acute COPD exacerbation Elevated troponin level. Normocytic anemia Patient is a 85-year-old female with a known history of paroxysmal atrial fibrillation on anticoagulation with Eliquis, COPD, history of Brugada syndrome, COPD, hypertension, hyperlipidemia, hypothyroidism, osteoarthritis, history of bladder cancer status post chemo instillation and previous history of smoking presents to ER with complaints of difficulty in breathing. Patient is a poor historian. Patient going shortness of breath for the past 1 month and getting worse for the last few days. Patient was found to be hypoxic with pulse ox in 70s at home. She came to ER for evaluation. Otherwise patient denied any complaints of fever or chills. Cough without any sputum production. No chest pain. No palpitations. No nausea vomiting abdominal pain or diarrhea. Denies any dysuria or hematuria. Denies any recent illnesses or sick contacts. Chest x-ray showed COPD correlate for chronic interstitial pulmonary fibrosis superimposed pneumonitis not excluded.Patient is somewhat poor historian. Basilar infiltrates appear improved related to prior exam. EKG showed normal sinus rhythm. Laboratory data showed WBC 6.8 hemoglobin 9.4 and platelets 494 lymphocytes 0.6 D-dimer 1.25 Sodium 136 potassium 3.0 chloride 102 BUN 14 creatinine 0.61 Troponin 0 0.171 and 0.142 proBNP 4830 Urinalysis showed cloudy with trace leukoesterase and no WBCs and RBCs. Coronavirus PCR not detected. 04/30/2021 Patient is awake alert and oriented 3. Breathing status is much improved now. Mild expiratory wheezing otherwise patient is on room air. Patient is being continued on Solu-Medrol IV 40 mg every 8 hourly and DuoNeb's. Troponin level went up to 0.184. First started on heparin drip and cardiology was consulted. patient otherwise denied any chest pain. No nausea vomiting or abdominal pain or diarrhea. Denied any dysuria or hematuria. No cough or sputum production. Laboratory data showed sodium 136 potassium 4.5 BUN 19 creatinine 0.58 There is a 5.0 hemoglobin 8.[address] angiogram showed no acute PE extensive emphysematous changes. Some irregular increased density within the right middle lobe. Because of PET/CT and the patient is stable for additional evaluation.. 05/01/2021 Patient is currently lying in bed. Awake alert and oriented x3. Breathing status is much better today. Patient is being continued on IV steroids. cnaged to PO. Patient was seen by cardiology due to elevated troponin level. And he added losartan. 2D echocardiogram was ordered. Continued on breathing treatments. Laboratory data showed WBC 5.0 hemoglobin 8.0 and platelets 473 lymphocytes 0.6 BUN 19 and creatinine 0.58 Troponin 0 0.184 and B12 level 1264 and TSH is 0.71 Continued on telemetry monitoring. 05/02/2021 Patient is currently resting in the bed. Still having exertional dyspnea and also using oxygen at 2-4 L via nasal cannula. Patient is being continued on DuoNeb's and prednisone changed to by mouth 30 mg daily. Cardiology is on board as well due to elevated troponin level. Currently denied any complaints of chest pain. No nausea or vomiting. Tolerating oral diet. Patient was confused and delirious yesterday but seems to be improved today. Laboratory data showed WBC 11.1 hemoglobin 7.1 and platelets 453 BUN 26 and creatinine 0.88 Patient is on Eliquis 2.5 mg twice a day and metoprolol. PT OT will be consulted 05/03/21 Pt. is lying in the bed. Awake and alert. Patient is more oriented today. Still having shortness of breath and exertional dyspnea while walking to the bathroom. Patient is requiring 5 L of oxygen. PTOT is following. Blood pressure is elevated and started on Norvasc 2.5 mg daily. Patient was also given a dose of IV Lasix. Titrate down oxygen. Patient may need oxygen supplementation upon discharge. Echocardiogram completed revealing ejection fraction 55-60% Current medications reviewed. Objective - Vital Signs Vital signs: Vital Signs Temp 97.8 F 05/04/21 11:23 Pulse 68 05/04/21 11:36 Resp 18 05/04/21 11:23 BP 117/56 05/04/21 11:23 Pulse Ox 96 05/04/21 11:23 Intake & Output 05/03/21 05/04/21 05/04/21 18:59 06:59 18:59 Intake Total 1697 360 358 Output Total 600 0 Balance 1097 360 358 Weight 40.8 kg 39.8 kg Intake: Oral 1697 360 358 Output: Urine 600 0 Other: Voiding Method Bedside Commode Bedside Commode # Voids 3 1 1 - Exam PHYSICAL EXAMINATION: Patient is lying in the bed comfortably, no acute distress, awake alert and oriented.. HEENT: Normocephalic. Neck is supple. Pupils reactive. Nostrils clear. Oral cavity is moist. Neck reveals no JVD, carotid bruits, or thyromegaly. CHEST EXAMINATION: Trachea is central. Symmetrical expansion. Bilateral air entry improved. Mild expiratory wheezing.. Nonlabored breathing.. CARDIAC: Normal S1, S2 with no gallops. No murmurs ABDOMEN: Soft. Bowel sounds normal. No organomegaly. No abdominal bruits. Extremities: reveal no edema. No clubbing or cyanosis Neurologically awake, alert, oriented x3 with well-coordinated movements. No focal deficits noted Skin: No rash or skin lesions. Psychiatric: Coperative. Nonsuicidal Musculoskeletal: No joint swelling or deformity. Normal range of motion. - Labs CBC & Chem 7: 05/04/21 10:44 05/04/21 10:44 Labs: Abnormal Lab Results - Last 24 Hours (Table) 05/04/21 05/04/21 Range/Units 10:44 10:44 RBC 3.18 L (3.80-5.40) m/uL Hgb 8.4 L (11.4-16.0) gm/dL Hct 28.5 L (34.0-46.0) % MCHC 29.6 L (31.0-37.0) g/dL Plt Count 499 H (150-450) k/uL Sodium 136 L (137-145) mmol/L Carbon Dioxide 34 H (22-30) mmol/L BUN 31 H (7-17) mg/dL Glucose 132 H (74-99) mg/dL Assessment and Plan Assessment: Worsening shortness of breath likely secondary to acute COPD exacerbation with chest x-ray findings of pulmonary fibrosis and interstitial pneumonitis cannot be excluded. Elevated troponin level possible demand ischemia. Troponin trending down. No complaints of chest pain. Elevated BNP level Possible acute on chronic CHF with diastolic dysfunction Severe hypokalemia 3.0 on admission. Replaced. Hypovolemic hyponatremia Normocytic anemia with hemoglobin level 9.4 Iron deficiency anemia. Paroxysmal atrial fibrillation on anticoagulation with Eliquis at home History of Brugada syndrome COPD not on home oxygen Hypertension Hyperlipidemia Hypothyroidism History of bladder cancer status post chemo instillation. Previous history of smoking Osteoarthritis. Plan: Patient will be continued on oxygen supplementation as needed. Continue with PO steroids and duo nebs. Patient was started on heparin drip due to elevated troponin level..stopped now. Continue to trend troponin level and 2D echocardiogram was ordered. Showed nor mal EF Cardiology is following.. PT OT is following and patient may need home oxygen as well. Continued home medications and follow-up CBC and BMP tomorrow. Prognosis guarded at this time. Time with Patient: Greater than 30
--- NOTE | 2021-05-04 14:53 | P.DS ---
Providers Date of admission: 04/29/21 12:49 Expected date of discharge: 05/04/21 Attending physician: Kraig Vigil Primary care physician: Ebenezer Caldwell Hospital Course: Discharge diagnosis Worsening shortness of breath likely secondary to acute COPD exacerbation with chest x-ray findings of pulmonary fibrosis and interstitial pneumonitis cannot be excluded. Unlikely pneumonia. Elevated troponin level possible demand ischemia. Troponin trending down. No complaints of chest pain. Elevated BNP level Mild acute on chronic CHF with diastolic dysfunction Severe hypokalemia 3.0 on admission. Replaced. Hypovolemic hyponatremia Normocytic anemia with hemoglobin level 9.4 Iron deficiency anemia. Paroxysmal atrial fibrillation on anticoagulation with Eliquis at home History of Brugada syndrome COPD not on home oxygen Hypertension Hyperlipidemia Hypothyroidism History of bladder cancer status post chemo instillation. Previous history of smoking Osteoarthritis. Hospital course Patient is a 85-year-old female with a known history of paroxysmal atrial fibrillation on anticoagulation with Eliquis, COPD, history of Brugada syndrome, COPD, hypertension, hyperlipidemia, hypothyroidism, osteoarthritis, history of bladder cancer status post chemo instillation and previous history of smoking presents to ER with complaints of difficulty in breathing. Patient is a poor historian. Patient going shortness of breath for the past 1 month and getting worse for the last few days. Patient was found to be hypoxic with pulse ox in 70s at home. She came to ER for evaluation. Otherwise patient denied any complaints of fever or chills. Cough without any sputum production. No chest pain. No palpitations. No nausea vomiting abdominal pain or diarrhea. Denies any dysuria or hematuria. Denies any recent illnesses or sick contacts. Chest x-ray showed COPD correlate for chronic interstitial pulmonary fibrosis superimposed pneumonitis not excluded.Patient is somewhat poor historian. Basilar infiltrates appear improved related to prior exam. EKG showed normal sinus rhythm. Laboratory data showed WBC 6.8 hemoglobin 9.4 and platelets 494 lymphocytes 0.6 D-dimer 1.25 Sodium 136 potassium 3.0 chloride 102 BUN 14 creatinine 0.61 Troponin 0 0.171 and 0.142 proBNP 4830 Urinalysis showed cloudy with trace leukoesterase and no WBCs and RBCs. Coronavirus PCR not detected. 04/30/2021 Patient is awake alert and oriented 3. Breathing status is much improved now. Mild expiratory wheezing otherwise patient is on room air. Patient is being continued on Solu-Medrol IV 40 mg every 8 hourly and DuoNeb's. Troponin level went up to 0.184. First started on heparin drip and cardiology was consulted. patient otherwise denied any chest pain. No nausea vomiting or abdominal pain or diarrhea. Denied any dysuria or hematuria. No cough or sputum production. Laboratory data showed sodium 136 potassium 4.5 BUN 19 creatinine 0.58 There is a 5.0 hemoglobin 8.[address] angiogram showed no acute PE extensive emphysematous changes. Some irregular increased density within the right middle lobe. Because of PET/CT and the patient is stable for additional evaluation.. 05/01/2021 Patient is currently lying in bed. Awake alert and oriented x3. Breathing status is much better today. Patient is being continued on IV steroids. cnaged to PO. Patient was seen by cardiology due to elevated troponin level. And he added losartan. 2D echocardiogram was ordered. Continued on breathing treatments. Laboratory data showed WBC 5.0 hemoglobin 8.0 and platelets 473 lymphocytes 0.6 BUN 19 and creatinine 0.58 Troponin 0 0.184 and B12 level 1264 and TSH is 0.71 Continued on telemetry monitoring. 05/02/2021 Patient is currently resting in the bed. Still having exertional dyspnea and also using oxygen at 2-4 L via nasal cannula. Patient is being continued on DuoNeb's and prednisone changed to by mouth 30 mg daily. Cardiology is on board as well due to elevated troponin level. Currently denied any complaints of chest pain. No nausea or vomiting. Tolerating oral diet. Patient was confused and delirious yesterday but seems to be improved today. Laboratory data showed WBC 11.1 hemoglobin 7.1 and platelets 453 BUN 26 and creatinine 0.88 Patient is on Eliquis 2.5 mg twice a day and metoprolol. PT OT will be consulted 05/03/21 Pt. is lying in the bed. Awake and alert. Patient is more oriented today. Still having shortness of breath and exertional dyspnea while walking to the bathroom. Patient is requiring 5 L of oxygen. PTOT is following. Blood pressure is elevated and started on Norvasc 2.5 mg daily. Patient was also given a dose of IV Lasix. Titrate down oxygen. Patient may need oxygen supplementation upon discharge. Echocardiogram completed revealing ejection fraction 55-60% 05/04/2021 Patient is currently resting in the chair. No complaints of chest pain or worsening shortness breath. No cough is from production. Patient has been afebrile. Currently requiring oxygen at 3 L via nasal cannula. PTOT has seen the patient and his recommending rehab transfer. 2-D echocardiogram was done. Blood pressure medications titrated. Cleared from cardiology standpoint as well.. Patient is being discharged today. PHYSICAL EXAMINATION: Patient is lying in the bed comfortably, no acute distress, awake alert and oriented.. HEENT: Normocephalic. Neck is supple. Pupils reactive. Nostrils clear. Oral cavity is moist. Neck reveals no JVD, carotid bruits, or thyromegaly. CHEST EXAMINATION: Trachea is central. Symmetrical expansion. Mild expiratory wheeze. Nonlabored breathing. Lung baca clear to auscultation and percussion. CARDIAC: Normal S1, S2 with no gallops. No murmurs ABDOMEN: Soft. Bowel sounds normal. No organomegaly. No abdominal bruits. Extremities: reveal no edema. No clubbing or cyanosis Neurologically awake, alert, oriented x3 with well-coordinated movements. No focal deficits noted Skin: No rash or skin lesions. Psychiatric: Coperative. Nonsuicidal Musculoskeletal: No joint swelling or deformity. Normal range of motion. Vital Signs 05/04/21 05/04/21 05/04/21 09:05 09:10 09:13 Temperature 98 F Pulse Rate 80 80 Pulse Rate [ 67 Pulse Oximetery ] Respiratory 18 Rate Blood Pressure 119/58 [Left Arm Sitting] O2 Sat by Pulse 98 Oximetry 05/04/21 05/04/21 05/04/21 09:14 09:23 11:23 Temperature 97.8 F Pulse Rate 80 80 Pulse Rate [ 71 Pulse Oximetery ] Respiratory 18 Rate Blood Pressure 117/56 [Left Arm Sitting] O2 Sat by Pulse 96 Oximetry 05/04/21 05/04/21 11:25 11:36 Temperature Pulse Rate 77 68 Pulse Rate [ Pulse Oximetery ] Respiratory Rate Blood Pressure [Left Arm Sitting] O2 Sat by Pulse Oximetry Total time taken greater than 35 minutes including 18 minutes for counseling and coordination of care. Patient Condition at Discharge: Fair Plan - Discharge Summary Discharge Rx Participant: No New Discharge Prescriptions: New Losartan [Cozaar] 50 mg PO DAILY #30 tab Ferrous Sulfate [Iron (65 MG Elemental)] 325 mg PO W/LUNCH #30 tab predniSONE See Taper PO DIRECTED #18 tab Sennosides [Senna] 8.6 mg PO HS PRN #30 tablet PRN Reason: Constipation Continue Levothyroxine Sodium [Synthroid] 75 mcg PO DAILY Apixaban [Eliquis] 2.5 mg PO BID #60 tablet Atorvastatin [Lipitor] 40 mg PO HS #30 tab Levocetirizine Dihydrochloride [Xyzal] 5 mg PO DAILY Metoprolol Tartrate [Lopressor] 25 mg PO BID Umeclidinium Brm/Vilanterol Tr [Anoro Ellipta 62.5-25 Mcg INH] 1 puff INHALATION RT-DAILY Sertraline [Zoloft] 25 mg PO HS Ipratropium Nebulized [Atrovent Nebulized 0.2 MG/ML] 0.5 mg INHALATION RT-QID PRN PRN Reason: Shortness Of Breath Omeprazole 20 mg PO DAILY Multivitamins, Thera [Multivitamin (formulary)] 1 tab PO DAILY@1200 Lactulose 10 gm PO DAILY Isosorbide Mononitrate ER [Imdur] 30 mg PO DAILY 30 Days #30 tablet Acetaminophen Tab [Tylenol] 650 mg PO Q6HR PRN tab PRN Reason: Fever And/ Or Pain Albuterol Sulfate [Proair Hfa] 2 puff INHALATION RT-Q4H Nitroglycerin Sl Tabs [Nitrostat] 0.4 mg SL Q5M PRN PRN Reason: Chest Pain Discontinued Losartan [Cozaar] 25 mg PO DAILY 30 Days #30 tab Discharge Medication List Levothyroxine Sodium [Synthroid] 75 mcg PO DAILY 12/11/18 [History] Apixaban [Eliquis] 2.5 mg PO BID #60 tablet 12/13/18 [Rx] Atorvastatin [Lipitor] 40 mg PO HS #30 tab 12/13/18 [Rx] Levocetirizine Dihydrochloride [Xyzal] 5 mg PO DAILY 05/19/19 [History] Metoprolol Tartrate [Lopressor] 25 mg PO BID 05/19/19 [History] Lactulose 10 gm PO DAILY 02/15/21 [History] Umeclidinium Brm/Vilanterol Tr [Anoro Ellipta 62.5-25 Mcg INH] 1 puff INHALATION RT-DAILY 02/15/21 [History] Isosorbide Mononitrate ER [Imdur] 30 mg PO DAILY 30 Days #30 tablet 02/17/21 [Rx] Acetaminophen Tab [Tylenol] 650 mg PO Q6HR PRN tab 02/18/21 [Rx] Ipratropium Nebulized [Atrovent Nebulized 0.2 MG/ML] 0.5 mg INHALATION RT-QID PRN 03/01/21 [History] Omeprazole 20 mg PO DAILY 03/01/21 [History] Sertraline [Zoloft] 25 mg PO HS 03/01/21 [History] Albuterol Sulfate [Proair Hfa] 2 puff INHALATION RT-Q4H 04/29/21 [History] Multivitamins, Thera [Multivitamin (formulary)] 1 tab PO DAILY@1200 04/29/21 [History] Nitroglycerin Sl Tabs [Nitrostat] 0.4 mg SL Q5M PRN 04/29/21 [History] Ferrous Sulfate [Iron (65 MG Elemental)] 325 mg PO W/LUNCH #30 tab 05/02/21 [Rx] Losartan [Cozaar] 50 mg PO DAILY #30 tab 05/02/21 [Rx] Sennosides [Senna] 8.6 mg PO HS PRN #30 tablet 05/02/21 [Rx] predniSONE See Taper PO DIRECTED #18 tab 05/02/21 [Rx] Follow up Appointment(s)/Referral(s): Ebenezer Caldwell MD [Primary Care Provider] - 1-2 days Candelaria Pal MD [STAFF PHYSICIAN] - 1 Week Kelly Nascimento MD [STAFF PHYSICIAN] - 1 Week Discharge Disposition: TRANSFER TO SNF/ECF
[2021-05-04] MEDS: IPRATROPIUM-ALBUTEROL 3 ML NEB INHALATION PRN (16:19)
[2021-05-04 17:07] VITALS: BP 121/61; PULSE 83; RESP 16; TEMP 97.9
== END 2021-05-04 18:29 | DRG 190 ==
LOC: EC 10:23 → 3SCARD 12:49
PROVIDERS: ADMIT Internal Medicine; ATTEND Internal Medicine
DX: J44.1 Chronic obstructive pulmonary disease with (acute) exacerbation (principal); I21.A1 Myocardial infarction type 2; I50.33 Acute on chronic diastolic (congestive) heart failure; E87.1 Hypo-osmolality and hyponatremia; D50.9 Iron deficiency anemia, unspecified; E03.9 Hypothyroidism, unspecified; Z20.822 Contact with and (suspected) exposure to COVID-19; E78.5 Hyperlipidemia, unspecified; E86.1 Hypovolemia; E87.6 Hypokalemia; I11.0 Hypertensive heart disease with heart failure; I48.0 Paroxysmal atrial fibrillation; J84.10 Pulmonary fibrosis, unspecified; Z79.01 Long term (current) use of anticoagulants; Z79.890 Hormone replacement therapy; Z79.899 Other long term (current) drug therapy; Z80.49 Family history of malignant neoplasm of other genital organs; Z85.51 Personal history of malignant neoplasm of bladder; Z85.820 Personal history of malignant melanoma of skin; Z87.891 Personal history of nicotine dependence; Z90.710 Acquired absence of both cervix and uterus; Z92.21 Personal history of antineoplastic chemotherapy; F32.A Depression, unspecified; F41.9 Anxiety disorder, unspecified; K21.9 Gastro-esophageal reflux disease without esophagitis; K44.9 Diaphragmatic hernia without obstruction or gangrene; M19.90 Unspecified osteoarthritis, unspecified site; M25.551 Pain in right hip
CPT/HCPCS: 36415; 71046; 71275; 80048; 80053; 81001; 82607; 82747; 83540; 83550; 83605; 83735; 83880; 84132; 84443; 84484; 85025; 85379; 85610; 85730; 87635; 93005; 93308; 94640; 96374; 99291

== ENCOUNTER 2021-06-27 21:01 | Emergency (ER) | payer MEDICARE, BC ==
[2021-06-27 21:14] VITALS: RESP 18; TEMP 97.8
--- NOTE | 2021-06-27 21:35 | ED ---
Fall HPI - General Chief Complaint: Fall Stated Complaint: Fall Time Seen by Provider: 06/27/21 21:03 Source: patient, EMS Mode of arrival: EMS Limitations: physical limitation (Underlying dementia) - History of Present Illness Initial Comments: This patient is an 85-year-old woman with underlying history of dementia who is brought to have evaluation after she had a fall. The patient transferred here from [facility]. 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 She reports hitting the back of her head and her left hip. halfway papers state that she was complaining of left hip pain at the time. The patient denies pains now. She denies other complaints as well. MD Complaint: fall Onset/Timin -: hour(s) Fall From: standing When Fall Occurred: 1-[address] Fall Occurred: home Loss of Consciousness: none Prolonged Down Time?: no Symptoms Prior to Fall: none Location: head, pelvis Severity scale (1-10): 0 Context: tripped/slipped Associated Symptoms: denies - Related Data Home Medications Medication Instructions Recorded Confirmed Levothyroxine Sodium [Synthroid] 75 mcg PO DAILY@0600 12/11/18 06/27/21 Levocetirizine Dihydrochloride 5 mg PO DAILY@0800 05/19/19 06/27/21 [Xyzal] Metoprolol Tartrate [Lopressor] 25 mg PO BID@0800,1700 05/19/19 06/27/21 Lactulose 10 gm PO DAILY@0800 02/15/21 06/27/21 Umeclidinium Brm/Vilanterol Tr 1 puff INHALATION RT-DAILY@0800 02/15/21 06/27/21 [Anoro Ellipta 62.5-25 Mcg INH] Ipratropium Nebulized [Atrovent 0.5 mg INHALATION RT-QID PRN 03/01/21 06/27/21 Nebulized 0.2 MG/ML] Omeprazole 20 mg PO DAILY@0600 03/01/21 06/27/21 Sertraline [Zoloft] 25 mg PO HS@2100 03/01/21 06/27/21 Albuterol Sulfate [Proair Hfa] 2 puff INHALATION RT-Q4H 04/29/21 06/27/21 Multivitamins, Thera [Multivitamin 1 tab PO DAILY@1200 04/29/21 06/27/21 (formulary)] Nitroglycerin Sl Tabs [Nitrostat] 0.4 mg SL Q5M PRN 04/29/21 06/27/21 Apixaban [Eliquis] 2.5 mg PO BID@0800,1700 06/27/21 06/27/21 Atorvastatin [Lipitor] 40 mg PO HS@2100 06/27/21 06/27/21 Cyproheptadine [Cyproheptadine HCl] 2 mg PO TID@0800,1200,1700 06/27/21 06/27/21 Ensure Enlive 237 ml PO TID@0800,1200,1700 06/27/21 06/27/21 Ferrous Sulfate [Iron (65 MG 325 mg PO BID@0800,1700 06/27/21 06/27/21 Elemental)] Isosorbide Mononitrate ER [Imdur] 30 mg PO DAILY@0800 06/27/21 06/27/21 Losartan [Cozaar] 50 mg PO DAILY@0800 06/27/21 06/27/21 Magic Cup 4 oz PO DAILY@1200 06/27/21 06/27/21 Magnesium Hydroxide [Milk of 7,200 mg PO DAILY PRN 06/27/21 06/27/21 Magnesia Concentrate] Melatonin 1 mg PO HS@209906/27/21 06/27/21 Na Phos,M-B/Na Phos,Di-Ba [Fleet 133 ml RECTAL DAILY PRN 06/27/21 06/27/21 Adult] bisacodyL [Dulcolax] 10 mg RECTAL DAILY PRN 06/27/21 06/27/21 Previous Rx's Medication Instructions Recorded Acetaminophen Tab [Tylenol] 650 mg PO Q6HR PRN tab 02/18/21 Sennosides [Senna] 8.6 mg PO HS PRN #30 tablet 05/02/21 Allergies Allergy/AdvReac Type Severity Reaction Status Date / Time azithromycin Allergy Unknown Verified 06/27/21 22:19 mussels Allergy Unknown Verified 06/27/21 22:19 codeine AdvReac Nausea & Verified 06/27/21 22:19 Vomiting Sulfa (Sulfonamide AdvReac Nausea & Verified 06/27/21 22:19 Antibiotics) Vomiting Review of Systems ROS Statement: Those systems with pertinent positive or pertinent negative responses have been documented in the HPI. ROS Other: All systems not noted in ROS Statement are negative. Limitations: ROS unobtainable due to patients medical condition (Underlying dementia) Constitutional: Denies: fever Eyes: Denies: vision change Respiratory: Denies: cough, dyspnea Cardiovascular: Denies: chest pain Gastrointestinal: Denies: abdominal pain, vomiting Musculoskeletal: Reports: as per HPI. Denies: back pain Neurological: Denies: headache, weakness Past Medical History Past Medical History: Atrial Fibrillation, Cancer, COPD, GERD/Reflux, Hyperlipidemia, Hypertension, Thyroid Disorder Additional Past Medical History / Comment(s): Brugada syndrome, Afib RVR, bladder CA treated with instillation, melanoma removed under L arm with surgery, past home oxygen use but not currently, hiatal hernia, hypothyroid, arthritis mostly in back, UTIs, allergies. History of Any Multi-Drug Resistant Organisms: None Reported Past Surgical History: Adenoidectomy, Back Surgery, Bladder Surgery, Breast Surgery, Hysterectomy, Orthopedic Surgery, Tonsillectomy Additional Past Surgical History / Comment(s): R knee arthroscopic surgery, lumbar laminectomy, R rotator cuff repair, D&C, total hysterectomy, L arm melanoma excised, cystoscopy for instillation to burn bladder holder d/t bladder cancer, R breast benign bx, bilateral cataract removals, bilateral vein stripping, EGD, colonoscopy Past Anesthesia/Blood Transfusion Reactions: Postoperative Nausea & Vomiting (PONV) Additional Past Anesthesia/Blood Transfusion Reaction / Comment(s): Pt has received blood in past without reaction. Past Psychological History: Anxiety, Depression Smoking Status: Former smoker - Past Family History Mother Family Medical History: Cancer, Pneumonia, Respiratory Disorder Additional Family Medical History / Comment(s): TB, uterine cancer. Father Family Medical History: No Reported History Additional Family Medical History / Comment(s): Father was healthy. General Exam Limitations: no limitations General appearance: alert, in no apparent distress Head exam: Present: normocephalic, other (Small contusion left occipital, no tenderness or deformity) Eye exam: Present: normal appearance, PERRL, EOMI. Absent: scleral icterus, conjunctival injection Neck exam: Present: normal inspection, full ROM. Absent: tenderness, meningismus Respiratory exam: Present: normal lung sounds bilaterally. Absent: respiratory distress, wheezes, rales, rhonchi, stridor, chest wall tenderness Cardiovascular Exam: Present: regular rate, normal rhythm, normal heart sounds. Absent: systolic murmur, diastolic murmur, rubs, gallop GI/Abdominal exam: Present: soft. Absent: distended, tenderness, guarding, rebound, rigid Extremities exam: Present: normal inspection, normal capillary refill Back exam: Present: normal inspection. Absent: vertebral tenderness Neurological exam: Present: alert. Absent: oriented X3 (Patient is oriented to person only), motor sensory deficit Skin exam: Present: warm, dry, intact, normal color. Absent: rash Course Vital Signs 06/27/21 21:08 Temperature 97.8 F Pulse Rate 69 Respiratory 18 Rate Blood Pressure 174/78 O2 Sat by Pulse 98 Oximetry Medical Decision Making - Lab Data Result diagrams: 06/27/21 23:22 06/27/21 23:22 Lab Results 06/27/21 06/27/21 06/27/21 Range/Units 23:22 23:22 23:22 WBC 4.7 (3.8-10.6) k/uL RBC 3.19 L (3.80-5.40) m/uL Hgb 9.3 L (11.4-16.0) gm/dL Hct 30.8 L (34.0-46.0) % MCV 96.5 (80.0-100.0) fL MCH 29.1 (25.0-35.0) pg MCHC 30.2 L (31.0-37.0) g/dL RDW 18.7 H (11.5-15.5) % Plt Count 221 (150-450) k/uL MPV 7.7 Neutrophils % 65 % Lymphocytes % 23 % Monocytes % 5 % Eosinophils % 4 % Basophils % 1 % Neutrophils # 3.1 (1.3-7.7) k/uL Lymphocytes # 1.1 (1.0-4.8) k/uL Monocytes # 0.3 (0-1.0) k/uL Eosinophils # 0.2 (0-0.7) k/uL Basophils # 0.0 (0-0.2) k/uL Hypochromasia Marked Anisocytosis Slight Macrocytosis Slight Sodium 141 (137-145) mmol/L Potassium 4.0 (3.5-5.1) mmol/L Chloride 104 (98-107) mmol/L Carbon Dioxide 32 H (22-30) mmol/L Anion Gap 5 mmol/L BUN 24 H (7-17) mg/dL Creatinine 0.66 (0.52-1.04) mg/dL Est GFR (CKD-EPI)AfAm >90 (>60 ml/min/1.73 sqM) Est GFR (CKD-EPI)NonAf 81 (>60 ml/min/1.73 sqM) Glucose 96 (74-99) mg/dL Calcium 9.2 (8.4-10.2) mg/dL Troponin I <0.012 (0.000-0.034) ng/mL Disposition Clinical Impression: Fall, Head injury Disposition: HOME SELF-CARE Condition: Good Instructions (If sedation given, give patient instructions): Fall Prevention for Older Adults (ED) Is patient prescribed a controlled substance at d/c from ED?: No Referrals: Ebenezer Caldwell MD [Primary Care Provider] - 1-2 days
--- NOTE | 2021-06-27 21:55 | XR ---
EXAMINATION TYPE: XR Hip LT and AP Pelvis DATE OF EXAM: 06/27/2021 COMPARISON: None HISTORY: Fall. Hip pain TECHNIQUE: 3 view FINDINGS: The pelvic ring is intact. Proximal left femur and hip joint are intact. Acetabula appear i ntact. There is mild acetabular spurring. Sacroiliac joints are intact. IMPRESSION: No acute abnormality of the pelvis and left hip. No fracture. Mild degenerative acetabula r spur formation.
--- NOTE | 2021-06-27 22:15 | CT ---
EXAMINATION TYPE: CT brain sterling wo con DATE OF EXAM: 06/27/2021 COMPARISON: 03/09/2021 HISTORY: fall Pain CT DLP: 1226.4 mGycm Automated exposure control for dose reduction was used. Images of the brain and cervical spine obtained without contrast. There is hypodensity in the periventricular white matter. There is no mass effect or midline shift. T here is no sign of intracranial hemorrhage. There is cerebral cortical atrophy. Calvarium is intact. There is normal aeration of the mastoid sinuses. The cervical vertebra have normal alignment. Disc spaces are fairly normal. There is spurring of the endplates. There is no compression fracture. There is mild cervical hypertrophic facet arthropathy. IMPRESSION: Mild cervical spondylotic changes. No fracture. No change. Cerebral atrophy and chronic small vessel ischemia. No acute intracranial abnormality. No change.
[2021-06-27 23:37] LABS: Anisocytosis Slight; Basophils % (A) 1 %; Eosinophils # (A) 0.2 k/uL (0-0.7); Eosinophils % (A) 4 %; HCT 30.8 % (34.0-46.0); HGB 9.3 gm/dL (11.4-16.0); Hypochromasia Marked; Lymphocytes # (A) 1.1 k/uL (1.0-4.8); Lymphocytes % (A) 23 %; MCH 29.1 pg (25.0-35.0); MCHC 30.2 g/dL (31.0-37.0); MCV 96.5 fL (80.0-100.0); Macrocytosis Slight; Mean Platelet Volume 7.7; Monocytes # (A) 0.3 k/uL (0-1.0); Monocytes % (A) 5 %; Neutrophils # (A) 3.1 k/uL (1.3-7.7); Neutrophils % (A) 65 %; Platelet Count 221 k/uL (150-450); RBC 3.19 m/uL (3.80-5.40); RDW 18.7 % (11.5-15.5); WBC 4.7 k/uL (3.8-10.6)
[2021-06-27 23:59] LABS: African American GFR (CKD) >90 (>60 ml/min/1.73 sqM); Anion Gap 5 mmol/L; Blood Urea Nitrogen 24 mg/dL (7-17); Calcium 9.2 mg/dL (8.4-10.2); Carbon Dioxide 32 mmol/L (22-30); Chloride 104 mmol/L (98-107); Glucose 96 mg/dL (74-99); Non-African American GFR(CKD) 81 (>60 ml/min/1.73 sqM); Sodium 141 mmol/L (137-145)
[2021-06-28 02:04] VITALS: BP 163/88; PULSE 87
[2021-06-28] MEDS: SODIUM CHLORIDE 0.9% 500 ML 500 ML IV STA ×2 (02:10→02:12)
== END 2021-06-28 03:05 | disposition home or self-care (01) ==
LOC: EC 21:01
DX: S09.90XA Unspecified injury of head, initial encounter (principal); I48.91 Unspecified atrial fibrillation; J44.9 Chronic obstructive pulmonary disease, unspecified; K21.9 Gastro-esophageal reflux disease without esophagitis; E78.5 Hyperlipidemia, unspecified; I10 Essential (primary) hypertension; E07.9 Disorder of thyroid, unspecified; F41.9 Anxiety disorder, unspecified; F32.A Depression, unspecified; Z79.01 Long term (current) use of anticoagulants; Z88.1 Allergy status to other antibiotic agents; Z88.5 Allergy status to narcotic agent; Z88.2 Allergy status to sulfonamides; Z87.440 Personal history of urinary (tract) infections; Z85.51 Personal history of malignant neoplasm of bladder; Z90.710 Acquired absence of both cervix and uterus; Z87.891 Personal history of nicotine dependence; W01.10XA Fall on same level from slipping, tripping and stumbling with subsequent striking against unspecified object, initial encounter
CPT/HCPCS: 36415; 70450; 72125; 73502; 80048; 84484; 85025; 99284

== ENCOUNTER 2021-10-27 15:07 | Inpatient (IN) | payer MEDICARE, BC ==
--- NOTE | 2021-10-27 15:43 | ED ---
General Adult HPI - General Chief complaint: Fall Stated complaint: Fall/Head Lac Time Seen by Provider: 10/27/21 15:10 Source: EMS Mode of arrival: EMS Limitations: no limitations - History of Present Illness Initial comments: Dictation was produced using [employer] dictation software. please excuse any grammatical, word or spelling errors. Chief Complaint: Patient is an 86-year-old female presents to the emergency department after fall History of Present Illness: Is an 86-year-old female she takes anticoagulation medications. Patient lives at a retirement. She is allegedly fell in the bathroom approximately 45 minutes prior to arrival. She allegedly locked the door and was discovered to be on the ground. Patient not sure if she lost consciousness. She does however remember that she turned too quickly fell backwards. She complains of right elbow pain, posterior head pain and tailbone pain. She is brought in by EMS. She was discovered to have a hematoma on her occiput The ROS documented in this emergency department record has been reviewed and confirmed by me. Those systems with pertinent positive or negative responses have been documented in the HPI. All other systems are other negative and/or noncontributory. PHYSICAL EXAM: General Impression: Alert and oriented x3, not in acute distress HEENT: Abrasion with hematoma over the right occiput, extra-ocular movements intact, pupils equal and reactive to light bilaterally, mucous membranes moist. Cardiovascular: Heart regular rate and rhythm Chest: Able to complete full sentences, no retractions, no tachypnea Abdomen: abdomen soft, non-tender, non-distended, no organomegaly Musculoskeletal: Pulses present and equal in all extremities, no peripheral edema Motor: no focal deficits noted Neurological: CN II-XII grossly intact, no focal motor or sensory deficits noted Skin: Intact with no visualized rashes Psych: Normal affect and mood ED course: 86-year-old female presents to the emergency department after fall in the bathroom. Patient provides history that her fall was mechanical. She is however 86 years old with multiple comorbidities. Signs upon arrival are within acceptable limits. Patient is well-appearing at bedside she does have a hematoma over her posterior occiput with prescription for an echo evaluation medications. Laboratory evaluation obtained. CBC, coag panel, metabolic panel is unremarkable. Computed tomography scan of the head and C-spine shows no acute intracranial processes. CT C-spines unremarkable. Computed tomography scan abdomen and pelvis shows T12 compression fracture deformity with 3 mm retropulsi on last 25% height loss. Patient having significant pain. At this point believe patient would benefit from a short admission for pain control and spine surgery consultation. EKG interpretation: Ventricular rate 61, sinus rhythm,. Interval 135, care is 86, QTC 437 04/29/2021. No UT prolongation, no QTC prolongation, no ST or T-wave changes noted. EKG compared to [default value] showing no changes. Overall, this EKG is unremarkable - Related Data Home Medications Medication Instructions Recorded Confirmed Levothyroxine Sodium [Synthroid] 75 mcg PO DAILY@0600 12/11/18 06/27/21 Levocetirizine Dihydrochloride 5 mg PO DAILY@0800 05/19/19 06/27/21 [Xyzal] Metoprolol Tartrate [Lopressor] 25 mg PO BID@0800,1700 05/19/19 06/27/21 Lactulose 10 gm PO DAILY@0800 02/15/21 06/27/21 Umeclidinium Brm/Vilanterol Tr 1 puff INHALATION RT-DAILY@0800 02/15/21 06/27/21 [Anoro Ellipta 62.5-25 Mcg INH] Ipratropium Nebulized [Atrovent 0.5 mg INHALATION RT-QID PRN 03/01/21 06/27/21 Nebulized 0.2 MG/ML] Omeprazole 20 mg PO DAILY@0600 03/01/21 06/27/21 Sertraline [Zoloft] 25 mg PO HS@2100 03/01/21 06/27/21 Albuterol Sulfate [Proair Hfa] 2 puff INHALATION RT-Q4H 04/29/21 06/27/21 Multivitamins, Thera [Multivitamin 1 tab PO DAILY@1200 04/29/21 06/27/21 (formulary)] Nitroglycerin Sl Tabs [Nitrostat] 0.4 mg SL Q5M PRN 04/29/21 06/27/21 Apixaban [Eliquis] 2.5 mg PO BID@0800,1700 06/27/21 06/27/21 Atorvastatin [Lipitor] 40 mg PO HS@209906/27/21 06/27/21 Cyproheptadine [Cyproheptadine HCl] 2 mg PO TID@0800,1200,1700 06/27/21 06/27/21 Ensure Enlive 237 ml PO TID@0800,1200,1700 06/27/21 06/27/21 Ferrous Sulfate [Iron (65 MG 325 mg PO BID@0800,1700 06/27/21 06/27/21 Elemental)] Isosorbide Mononitrate ER [Imdur] 30 mg PO DAILY@0800 06/27/21 06/27/21 Losartan [Cozaar] 50 mg PO DAILY@0800 06/27/21 06/27/21 Magic Cup 4 oz PO DAILY@1200 06/27/21 06/27/21 Magnesium Hydroxide [Milk of 7,200 mg PO DAILY PRN 06/27/21 06/27/21 Magnesia Concentrate] Melatonin 1 mg PO HS@2100 06/27/21 06/27/21 Na Phos,M-B/Na Phos,Di-Ba [Fleet 133 ml RECTAL DAILY PRN 06/27/21 06/27/21 Adult] bisacodyL [Dulcolax] 10 mg RECTAL DAILY PRN 06/27/21 06/27/21 Previous Rx's Medication Instructions Recorded Acetaminophen Tab [Tylenol] 650 mg PO Q6HR PRN tab 02/18/21 Sennosides [Senna] 8.6 mg PO HS PRN #30 tablet 05/02/21 Allergies Allergy/AdvReac Type Severity Reaction Status Date / Time azithromycin Allergy Unknown Verified 06/27/21 22:19 mussels Allergy Unknown Verified 06/27/21 22:19 codeine AdvReac Nausea & Verified 06/27/21 22:19 Vomiting Sulfa (Sulfonamide AdvReac Nausea & Verified 06/27/21 22:19 Antibiotics) Vomiting Review of Systems ROS Statement: Those systems with pertinent positive or pertinent negative responses have been documented in the HPI. ROS Other: All systems not noted in ROS Statement are negative. 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 History of Any Multi-Drug Resistant Organisms: None Reported Past Surgical History: Adenoidectomy, Back Surgery, Bladder Surgery, Breast Surgery, Hysterectomy, Orthopedic Surgery, Tonsillectomy Additional Past Surgical History / Comment(s): R knee arthroscopic surgery, lumbar laminectomy, R rotator cuff repair, D&C, total hysterectomy, L arm melanoma excised, cystoscopy for instillation to burn bladder holder d/t bladder cancer, R breast benign bx, bilateral cataract removals, bilateral vein stripping, EGD, colonoscopy Past Anesthesia/Blood Transfusion Reactions: Postoperative Nausea & Vomiting (PONV) Additional Past Anesthesia/Blood Transfusion Reaction / Comment(s): Pt has received blood in past without reaction. Past Psychological History: Anxiety, Depression Smoking Status: Former smoker - Past Family History Mother Family Medical History: Cancer, Pneumonia, Respiratory Disorder Additional Family Medical History / Comment(s): TB, uterine cancer. Father Family Medical History: No Reported History Additional Family Medical History / Comment(s): Father was healthy. General Exam Limitations: no limitations Course Vital Signs 10/27/21 15:10 Temperature 98.2 F Pulse Rate 63 Respiratory 18 Rate Blood Pressure 173/72 O2 Sat by Pulse 97 Oximetry Medical Decision Making - Lab Data Result diagrams: 10/27/21 15:42 10/27/21 15:42 Lab Results 10/27/21 10/27/21 10/27/21 Range/Units 15:42 15:42 15:42 WBC 6.2 (3.8-10.6) k/uL RBC 4.06 (3.80-5.40) m/uL Hgb 12.1 (11.4-16.0) gm/dL Hct 39.8 (34.0-46.0) % MCV 98.1 (80.0-100.0) fL MCH 29.9 (25.0-35.0) pg MCHC 30.5 L (31.0-37.0) g/dL RDW 14.5 (11.5-15.5) % Plt Count 197 (150-450) k/uL MPV 7.7 Neutrophils % 65 % Lymphocytes % 21 % Monocytes % 7 % Eosinophils % 5 % Basophils % 1 % Neutrophils # 4.0 (1.3-7.7) k/uL Lymphocytes # 1.3 (1.0-4.8) k/uL Monocytes # 0.4 (0-1.0) k/uL Eosinophils # 0.3 (0-0.7) k/uL Basophils # 0.1 (0-0.2) k/uL Hypochromasia Slight PT 10.5 (9.0-12.0) sec INR 1.0 (<1.2) APTT 22.5 (22.0-30.0) sec Sodium 139 (137-145) mmol/L Potassium 3.9 (3.5-5.1) mmol/L Chloride 101 (98-107) mmol/L Carbon Dioxide 30 (22-30) mmol/L Anion Gap 8 mmol/L BUN 29 H (7-17) mg/dL Creatinine 0.68 (0.52-1.04) mg/dL Est GFR (CKD-EPI)AfAm >90 (>60 ml/min/1.73 sqM) Est GFR (CKD-EPI)NonAf 79 (>60 ml/min/1.73 sqM) Glucose 94 (74-99) mg/dL Calcium 9.4 (8.4-10.2) mg/dL Total Bilirubin 0.3 (0.2-1.3) mg/dL AST 62 H (14-36) U/L ALT 64 H (4-34) U/L Alkaline Phosphatase 92 (38-126) U/L Total Protein 7.2 (6.3-8.2) g/dL Albumin 4.1 (3.5-5.0) g/dL Disposition Clinical Impression: Vertebral fracture Disposition: ADMITTED IP TO THIS [facility] Condition: Fair Referrals: Ebenezer Caldwell MD [Primary Care Provider] - 1-2 days Decision Time: 19:03
[2021-10-27 15:55] LABS: Basophils # (A) 0.1 k/uL (0-0.2); Basophils % (A) 1 %; Eosinophils # (A) 0.3 k/uL (0-0.7); Eosinophils % (A) 5 %; HCT 39.8 % (34.0-46.0); HGB 12.1 gm/dL (11.4-16.0); Hypochromasia Slight; Lymphocytes # (A) 1.3 k/uL (1.0-4.8); Lymphocytes % (A) 21 %; MCH 29.9 pg (25.0-35.0); MCHC 30.5 g/dL (31.0-37.0); MCV 98.1 fL (80.0-100.0); Mean Platelet Volume 7.7; Monocytes # (A) 0.4 k/uL (0-1.0); Monocytes % (A) 7 %; Neutrophils % (A) 65 %; Platelet Count 197 k/uL (150-450); RBC 4.06 m/uL (3.80-5.40); RDW 14.5 % (11.5-15.5); WBC 6.2 k/uL (3.8-10.6)
[2021-10-27 16:05] LABS: ALT 64 U/L (4-34); AST 62 U/L (14-36); African American GFR (CKD) >90 (>60 ml/min/1.73 sqM); Albumin 4.1 g/dL (3.5-5.0); Alkaline Phosphatase 92 U/L (38-126); Anion Gap 8 mmol/L; Blood Urea Nitrogen 29 mg/dL (7-17); Calcium 9.4 mg/dL (8.4-10.2); Carbon Dioxide 30 mmol/L (22-30); Chloride 101 mmol/L (98-107); Glucose 94 mg/dL (74-99); Non-African American GFR(CKD) 79 (>60 ml/min/1.73 sqM); Potassium 3.9 mmol/L (3.5-5.1); Sodium 139 mmol/L (137-145); Total Bilirubin 0.3 mg/dL (0.2-1.3); Total Protein 7.2 g/dL (6.3-8.2)
[2021-10-27 16:06] LABS: Partial Thromboplastin Time 22.5 sec (22.0-30.0); Prothrombin Time 10.5 sec (9.0-12.0)
--- NOTE | 2021-10-27 16:15 | XR ---
EXAMINATION TYPE: XR elbow complete RT DATE OF EXAM: 10/27/2021 COMPARISON: None HISTORY: 86-year-old female with fall and pain TECHNIQUE: 3 views FINDINGS: Marked muscle atrophy. No joint effusion identified. Some posterior soft tissue swelling. Osteopenia. Very subtle lucency at the tip of the olecranon on the lateral view. No subluxation or dislocation. IMPRESSION: Osteopenia with marked muscle atrophy. Some posterior soft tissue swelling. There is very subtle luce ncy at the tip of the olecranon on the lateral view that could represent a subtle nondisplaced cortic al olecranon fracture. No elbow joint effusion or other acute osseous abnormality seen.
[2021-10-27] MEDS ORDERED: MORPHINE SULFATE 4 MG/ML SYRINGE IVP STA (16:19)
[2021-10-27] MEDS ORDERED: ONDANSETRON 4 MG/2 ML VIAL IVP STA (16:23)
[2021-10-27] MEDS ORDERED: diphenhydrAMINE 50 MG CAP PO STA (16:34)
--- NOTE | 2021-10-27 18:35 | CT ---
EXAMINATION TYPE: CT brain cspine wo con CT DLP: 1473.9 mGycm, Automated exposure control for dose reduction was used. DATE OF EXAM: 10/27/2021 5:39 PM COMPARISON: None.. CLINICAL INDICATION:Female, 86 years old with history of fall; pain after fall TECHNIQUE: Brain: Multiple axial CT images of the brain were obtained without IV contrast. Cspine: Axial CT images from the skull base to the inferior aspect of T2 we obtained without intraven ous contrast. Coronal and sagittal reformatted images were also reviewed. FINDINGS: Brain: Extra-axial spaces: No abnormal extra-axial fluid collections. Ventricular system: Dilatation in proportion to cerebral atrophy. Cerebral parenchyma: Cerebral atrophy. No acute intraparenchymal hemorrhage or mass effect. The hernandez -white junction is well differentiated. Scattered hypoattenuating areas are seen within the white mat ter. Cerebellum: Unremarkable. Mass effect: No evidence of midline shift. Intracranial vasculature: Atherosclerotic calcifications of the intracranial vessels. Soft tissues: Posterior scalp hematoma measuring up to 5.1 x 1.6 cm. Calvarium/osseous structures: No depressed skull fracture. Paranasal sinuses and mastoid air cells: Clear. Visualized orbits: Bilateral aphakia Cervical spine: Fracture: None. Osseous structures: Multilevel degenerative disc disease changes with endplate spurring and disc oste ophyte complex's. Vertebral alignment: Within normal limits. Spinal canal/Neural Foramina: No evidence of significant spinal canal narrowing. Facet joint uncovert ebral joint arthropathy scattered throughout the cervical spine with varying degrees of neural forami nal stenosis. Neck soft tissues: Prevertebral soft tissues are within normal limits. Other: The airway is patent. Moderate to severe centrilobular emphysema changes in the lung apices. IMPRESSION: 1. No acute intracranial process. 2. Posterior scalp hematoma. 3. Nonspecific white matter changes, likely secondary to chronic small vessel ischemic disease. 4. No evidence of cervical spine fracture. 5. Moderate multilevel degenerative disc disease. 6. Moderate to severe emphysema changes in lung apices.
--- NOTE | 2021-10-27 18:45 | CT ---
EXAMINATION TYPE: CT abdomen pelvis wo con CT DLP: 315.8 mGycm, Automated exposure control for dose reduction was used. DATE OF EXAM: 10/27/2021 5:39 PM COMPARISON: CT abdomen pelvis most recent from 12/06/2016 CLINICAL INDICATION:Female, 86 years old with history of fall; pain after fall TECHNIQUE: Standard CT of the abdomen and pelvis without IV or oral contrast. Lack of IV or oral co ntrast limits evaluation of solid and hollow organ viscera. Coronal and sagittal reformats were perfo rmed. FINDINGS: LOWER CHEST: Left lower lobe calcified granuloma. Atherosclerosis of the thoracic aorta. ABDOMEN LIVER: Scattered calcified granulomas. GALLBLADDER AND BILE DUCTS: Unremarkable. PANCREAS: Unremarkable. SPLEEN: Scattered calcified granulomas. ADRENAL GLANDS: Unremarkable. KIDNEYS AND URETERS: Nonspecific left renal calculi measuring up to 6 mm. No evidence of hydronephros is. PELVIS BLADDER: Unremarkable REPRODUCTIVE: Unremarkable. ABDOMEN & PELVIS STOMACH AND BOWEL: Large stool burden throughout the colon. No evidence of bowel obstruction. PERITONEUM: No evidence of pneumoperitoneum or free fluid. VASCULATURE: Moderate atherosclerotic calcifications are present throughout the abdominal aorta and i ts branches. MUSCULOSKELETAL: Interval development of compression deformity of T12 with cortical buckling and less than 25% height loss. There is 3 mm retropulsion. LYMPH NODES: No gross evidence for lymphadenopathy. SOFT TISSUE/ABDOMINAL WALL: Unremarkable IMPRESSION: 1. Suspected acute T12 compression deformity with 3 mm retropulsion and less than 25% height loss. Co rrelate with point tenderness. 2. No acute intra-abdominal process. 3. Nonobstructing left renal calculi. 4. Stool burden throughout the colon.
[2021-10-27] MEDS ORDERED: ONDANSETRON 4 MG/2 ML VIAL IVP PRN (19:03)
[2021-10-27] MEDS ORDERED: MORPHINE SULFATE 4 MG/ML SYRINGE IV PRN (19:03)
[2021-10-27] MEDS ORDERED: NALOXONE 0.4 MG/ML 1 ML VIAL IV PRN (19:03)
[2021-10-27] MEDS ORDERED: DEXTROSE 5%-0.45% NACL 1,000 ML IV SCH (19:15)
[2021-10-28] MEDS ORDERED: NITROGLYCERIN SL TABS 0.4 MG TAB SUBLINGUAL PRN
[2021-10-28] MEDS ORDERED: IPRATROPIUM 0.5 MG/2.5 ML NEBU INHALATION PRN
[2021-10-28] MEDS ORDERED: NA PHOS,M-B/NA PHOS,DI-BA 133 ML ENEMA RECTAL PRN
[2021-10-28] MEDS ORDERED: ALBUTEROL NEBULIZED 2.5 MG/3 ML INHALATION SCH
[2021-10-28] MEDS ORDERED: SENNOSIDES 8.6 MG TAB PO PRN
[2021-10-28] MEDS ORDERED: bisacodyL 10 MG SUPP RECTAL PRN
[2021-10-28] MEDS ORDERED: ALPRAZolam 0.25 MG TAB PO STA (00:06)
[2021-10-28] MEDS ORDERED: HYDROmorphone 0.5 MG/0.5 ML SYRINGE IVP PRN ×2 (00:06→01:52)
[2021-10-28] MEDS ORDERED: IPRATROPIUM-ALBUTEROL 3 ML NEB INHALATION PRN (00:12)
[2021-10-28] MEDS ORDERED: SERTRALINE 50 MG TAB PO SCH (00:15)
[2021-10-28] MEDS: LEVOTHYROXINE 75 MCG TAB PO SCH (05:41)
[2021-10-28] MEDS ORDERED: NON FORMULARY DRUG (Ensure Enlive 237 ML) PO SCH (08:00)
[2021-10-28] MEDS ORDERED: LOSARTAN 50 MG TAB PO SCH (09:00)
[2021-10-28] MEDS ORDERED: LORATADINE 10 MG TAB PO SCH (09:00)
[2021-10-28] MEDS ORDERED: CYPROHEPTADINE 4 MG TABLET PO SCH ×2 (09:00→21:00)
[2021-10-28] MEDS ORDERED: ISOSORBIDE MONONITRATE ER 30 MG TAB.ER.24H PO SCH (09:00)
[2021-10-28] MEDS: METOPROLOL TARTRATE 25 MG TAB PO SCH ×2 (09:39→19:54)
[2021-10-28] MEDS: FERROUS SULFATE 325 MG TAB PO SCH ×2 (09:39→19:54)
[2021-10-28] MEDS: LACTULOSE 20 GM/30 ML CUP PO SCH (09:40)
[2021-10-28] MEDS: IPRATROPIUM-ALBUTEROL 3 ML NEB INHALATION SCH ×4 (10:05→21:00)
[2021-10-28] MEDS: FORMOTEROL FUMARATE 20 MCG/2 ML NEBU INHALATION SCH ×2 (10:05→21:00)
[2021-10-28] MEDS: MULTIVITAMINS, THERA 1 EACH TAB PO SCH (10:20)
--- NOTE | 2021-10-28 12:17 | P.HPIM ---
History of Present Illness This is a pleasant 36 years old female with past medical history of Atrial Fibrillation, Cance on Eliquis r, Heart Failure, COPD, GERD/Reflux, Hyperlipidemia, Hypertension, hypothyroidism, Brugada syndrome, bladder CA treated with instillation, melanoma removed under L arm with surgery, past home oxygen use but not currently, hiatal hernia, arthritis mostly in back, UTIs,s/p, lumbar laminectomy, Anxiety, Depression, pt lives at [facility] in memory care unit. Patient this morning could not provide information so it was obtained from staff records. As per ED notes (pt. was in the bathroom at [facility] - pt. states she turned around too fast fell and hit her head.) Patient looks very frail and cachectic, she is confused, drowsy and when I ask her questions for example her name she only mumbles. She does not follow commands. I called the family. I talked to her son richard smith on [phone], hematoma his next of kin and that the spouse Kaveh adams is and asked me to talk to him and the information. He does not have much information but he said he was with her last week in the wheelchair and they have all together. And that she used to know him, and that she has history of dementia more than a year. She resides in a prison. He confirmed to me that she has DO NOT RESUSCITATE order and then by the end of the phone call he told me that his sister Kimberley is power of criminal defense attorney. I called Kimberley at [phone] and lef t a message to call back with the plan to place a PICC line, as well as discussing the other history and management plan. Responsive still pending. As per staff patient has urinary retention about 600-800 mL last night, she has trace catheter. Currently she has a Ruffin catheter placed this morning. No much urine output therefore going to give the patient some Vitals stable, blood pressure was elevated on admission. Labs including CBC, INR, BMP, liver enzymes are unremarkable except for mildly elevated AST at 62 and ALT at 64 Elbow x-ray: Osteopenia with marked muscle atrophy said. Possible nondisplaced cortical on the current fracture CT of the brain: No acute intracranial process. Posterior scalp hematoma. No evidence of cervical spine fracture. Multilevel degenerative disc disease. Moderate to severe emphysema CT of the abdomen and pelvis: Without contrast, large stool burden throughout the colon. No acute intra-abdominal process. EKG: Normal sinus rhythm at 61 with possible right ventricular conduction delay. QTC 437 Past Medical History Past Medical History: Atrial Fibrillation, Cancer, Heart Failure, COPD, GERD/Reflux, Hyperlipidemia, Hypertension, Thyroid Disorder Additional Past Medical History / Comment(s): Brugada syndrome, Afib RVR, bladder CA treated with instillation, melanoma removed under L arm with surgery, past home oxygen use but not currently, hiatal hernia, hypothyroid, arthritis m ostly in back, UTIs, allergies. hx of constipation History of Any Multi-Drug Resistant Organisms: None Reported Past Surgical History: Adenoidectomy, Back Surgery, Bladder Surgery, Breast Surgery, Hysterectomy, Orthopedic Surgery, Tonsillectomy Additional Past Surgical History / Comment(s): R knee arthroscopic surgery, lumb ar laminectomy, R rotator cuff repair, D&C, total hysterectomy, L arm melanoma excised, cystoscopy for instillation to burn bladder holder d/t bladder cancer, R breast benign bx, bilateral cataract removals, bilateral vein stripping, EGD, colonoscopy Past Anesthesia/Blood Transfusion Reactions: Postoperative Nausea & Vomiting (PONV) Additional Past Anesthesia/Blood Transfusion Reaction / Comment(s): Pt has received blood in past without reaction. Past Psychological History: Anxiety, Depression Additional Psychological History / Comment(s): pt lives at [facility] in memory care unit. Smoking Status: Former smoker Past Alcohol Use History: None Reported Additional Past Alcohol Use History / Comment(s): Pt started smoking in 1956 and quit in 2017. Past Drug Use History: None Reported - Past Family History Mother Family Medical History: Cancer, Pneumonia, Respiratory Disorder Additional Family Medical History / Comment(s): TB, uterine cancer. Father Family Medical History: No Reported History Additional Family Medical History / Comment(s): Father was healthy. Medications and Allergies Home Medications Medication Instructions Recorded Confirmed Type Levothyroxine Sodium [Synthroid] 75 mcg PO DAILY@0600 12/11/18 10/27/21 History Levocetirizine Dihydrochloride 5 mg PO DAILY@0800 05/19/19 10/27/21 History [Xyzal] Metoprolol Tartrate [Lopressor] 25 mg PO BID@0800,1700 05/19/19 10/27/21 History Lactulose 10 gm PO DAILY@0800 02/15/21 10/27/21 History Umeclidinium Brm/Vilanterol Tr 1 puff INHALATION RT-DAILY@0800 02/15/21 10/27/21 History [Anoro Ellipta 62.5-25 Mcg INH] Acetaminophen Tab [Tylenol] 650 mg PO Q6HR PRN tab 02/18/21 10/27/21 Rx Ipratropium Nebulized [Atrovent 0.5 mg INHALATION RT-QID PRN 03/01/21 10/27/21 History Nebulized 0.2 MG/ML] Omeprazole 20 mg PO DAILY@0800 03/01/21 10/27/21 History Sertraline [Zoloft] 25 mg PO HS 03/01/21 10/27/21 History Albuterol Sulfate [Proair Hfa] 2 puff INHALATION RT-Q4H 04/29/21 10/27/21 History Multivitamins, Thera [Multivitamin 1 tab PO DAILY@1200 04/29/21 10/27/21 History (formulary)] Nitroglycerin Sl Tabs [Nitrostat] 0.4 mg SL Q5M PRN 04/29/21 10/27/21 History Sennosides [Senna] 8.6 mg PO HS PRN #30 tablet 05/02/21 10/27/21 Rx Apixaban [Eliquis] 2.5 mg PO BID@0800,1700 06/27/21 10/27/21 History Atorvastatin [Lipitor] 40 mg PO HS 06/27/21 10/27/21 History Cyproheptadine [Cyproheptadine HCl] 8 mg PO DAILY@0800 06/27/21 10/27/21 History Ensure Enlive 237 ml PO TID@0800,1200,1700 06/27/21 10/27/21 History Ferrous Sulfate [Iron (65 MG 325 mg PO BID@0800,1700 06/27/21 10/27/21 History Elemental)] Isosorbide Mononitrate ER [Imdur] 30 mg PO DAILY@0800 06/27/21 10/27/21 History Losartan [Cozaar] 50 mg PO DAILY@0800 06/27/21 10/27/21 History Magnesium Hydroxide [Milk of 7,200 mg PO Q48H PRN 06/27/21 10/27/21 History Magnesia Concentrate] Na Phos,M-B/Na Phos,Di-Ba [Fleet 133 ml RECTAL DAILY PRN 06/27/21 10/27/21 History Adult] bisacodyL [Dulcolax] 10 mg RECTAL DAILY PRN 06/27/21 10/27/21 History Cyproheptadine [Cyproheptadine HCl] 4 mg PO HS 10/27/21 10/27/21 History Potassium Chloride [Potassium 10 meq PO DAILY@1700 10/27/21 10/27/21 History Chloride ER] Allergies Allergy/AdvReac Type Severity Reaction Status Date / Time azithromycin Allergy Unknown Verified 10/27/21 19:14 mussels Allergy Unknown Verified 10/27/21 19:14 codeine AdvReac Nausea & Verified 10/27/21 19:14 Vomiting Sulfa (Sulfonamide AdvReac Nausea & Verified 10/27/21 19:14 Antibiotics) Vomiting Physical Exam Vitals: Vital Signs Temp Pulse Pulse Resp BP BP Pulse Ox 10/28/21 06:41 97.3 F L 66 17 95/58 90 L 10/28/21 02:00 98.2 F 82 16 112/59 91 L 10/27/21 19:09 98.6 F 78 180/76 94 L 10/27/21 15:10 98.2 F 63 18 173/72 97 Intake and Output 10/27/21 10/28/21 10/28/21 22:59 06:59 14:59 Output Total 2487 Balance -2487 Output: Urine 1680 Post Void Residual 807 Other: # Bowel Movements 0 Weight 39.916 kg Results CBC & Chem 7: 10/27/21 15:42 10/27/21 15:42 Labs: Abnormal Lab Results - Last 24 Hours (Table) 10/27/21 10/27/21 Range/Units 15:42 15:42 MCHC 30.5 L (31.0-37.0) g/dL BUN 29 H (7-17) mg/dL AST 62 H (14-36) U/L ALT 64 H (4-34) U/L Thrombosis Risk Factor Assmnt - Choose All That Apply Any of the Below Risk Factors Present?: Yes Each Factor Represents 1 point: Abnormal pulmonary function (COPD), Medical pt on bed rest Other Risk Factors: Yes Each Risk Factor Represents 3 Points: Age 75 years or older Other congenital or acquired thrombophilia - If yes, enter type in comment: No Thrombosis Risk Factor Assessment Total Risk Factor Score: 5 Thrombosis Risk Factor Assessment Level: High Risk Assessment and Plan Assessment: Operative mental status, most likely metabolic encephalopathy hypoxic encephalopathy. Fall in the bathroom, cannot rule out syncope T12 compression fracture 25%, acute Possible nondisplaced cortical on the current fracture Posterior scalp hematoma severe calories protein malnutrition Emphysema, no acute exacerbation Constipation with large stool burden throughout the colon History of arthritis and chronic back pain status post lumbar laminectomy. Chronic atrial fibrillation on Eliquis COPD, no acute exacerbation History of GERD: Hyperlipidemia Hypertension Hypothyroidism Brugada syndrome History of bladder cancer status post bladder surgery History of hiatal hernia Plan: This is a pleasant 86 years old female who presents with back pain Telemetry Check urinalysis and bladder scan Old blood pressure and sedative medication Orthopedic team consult Stool softeners We ordered a PICC line Pending approval from power of criminal defense attorney her daughter Kimberley, I called and left a message Labs and medication were reviewed.. Continue same treatment. Continue with symptomatic treatment. Resume home medication. Monitor lytes and vitals. DVT and GI prophylaxis. Further recommendations as per clinical course of the patient DVT prophylaxis: Subcutaneous heparin GI Prophylaxis: Pepcid PT/OT: Pending Prognosis is guarded Patient might benefit from palliative consult. Long-term prognosis is very poor
[2021-10-28 13:32] LABS: Amorphous Sediment,Urine Occasional /hpf; Appearance,Urine Cloudy (Clear); Bacteria,Urine Rare /hpf; Bilirubin,Urine Negative (Negative); Blood,Urine Moderate (Negative); Color,Urine Yellow; Glucose,Urine (UA) Negative (Negative); Hyaline Casts,Urine 3 /lpf (0-2); Ketones,Urine Negative (Negative); Leukocyte Esterase,Urine Large (Negative); Mucus,Urine Few /hpf; Nitrite,Urine Negative (Negative); Protein,Urine 1+ (Negative); RBC,Urine 19 /hpf (0-5); Specific Gravity,Urine 1.015 (1.001-1.035); Squamous Epithelial Cell,Urine 2 /hpf (0-4); Urobilinogen,Urine <2.0 mg/dL (<2.0); WBC,Urine 156 /hpf (0-5)
[2021-10-28 14:20] VITALS: BMI 15.0
[2021-10-28] MEDS: DEXTROSE 5%-0.9% NACL 1,000 ML IV SCH (16:00)
--- NOTE | 2021-10-28 16:18 | P.CNOR ---
History of Present Illness - [facility] Consult date: 10/28/21 History of present illness: This patient is an 86-year-old female with past medical history of dementia, atrial fibrillation on Eliquis, heart failure, COPD, hyperlipidemia, hypertension that presented to [facility] emergency department yesterday via EMS after a fall. The patient has dementia at baseline and all history is obtained from the chart and the patient's daughter. Per the patient's daughter, the patient resides at [facility], and she locked herself in the bathroom yesterday. She was found on the floor. She was brought to the emergency department for evaluation. Patient was noted to have a hematoma at the posterior scalp. She was also complaining of right elbow pain and back pain in the emergency department. CT of the head and cervical spine showed no acute findings, no acute fractures. CT of the chest abdomen pelvis revealed an acute T12 compression fracture. X-rays of the right elbow revealed a possible fracture. Patient was admitted to the care of internal medicine with a consult placed to orthopedic surgery for evaluation of her T12 compression fracture and right elbow. Patient is examined bedside this afternoon. Her daughter is bedside. The patient is confused and has no complaints of pain at this time. Vital signs stable. 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 hx of constipation History of Any Multi-Drug Resistant Organisms: None Reported Past Surgical History: Adenoidectomy, Back Surgery, Bladder Surgery, Breast Surgery, Hysterectomy, Orthopedic Surgery, Tonsillectomy Additional Past Surgical History / Comment(s): R knee arthroscopic surgery, lumbar laminectomy, R rotator cuff repair, D&C, total hysterectomy, L arm melanoma excised, cystoscopy for instillation to burn bladder holder d/t bladder cancer, R breast benign bx, bilateral cataract removals, bilateral vein stripping, EGD, colonoscopy Past Anesthesia/Blood Transfusion Reactions: Postoperative Nausea & Vomiting (PONV) Additional Past Anesthesia/Blood Transfusion Reaction / Comm: Pt has received blood in past without reaction. Past Psychological History: Anxiety, Depression Additional Psychological History / Comment(s): pt lives at [facility] in memory care unit. Smoking Status: Former smoker Past Alcohol Use History: None Reported Additional Past Alcohol Use History / Comment(s): Pt started smoking in 1956 and quit in 2017. Past Drug Use History: None Reported - Past Family History Mother Family Medical History: Cancer, Pneumonia, Respiratory Disorder Additional Family Medical History / Comment(s): TB, uterine cancer. Father Family Medical History: No Reported History Additional Family Medical History / Comment(s): Father was healthy. Medications and Allergies Home Medications Medication Instructions Recorded Confirmed Type Levothyroxine Sodium [Synthroid] 75 mcg PO DAILY@0600 12/11/18 10/27/21 History Levocetirizine Dihydrochloride 5 mg PO DAILY@0800 05/19/19 10/27/21 History [Xyzal] Metoprolol Tartrate [Lopressor] 25 mg PO BID@0800,1700 05/19/19 10/27/21 History Lactulose 10 gm PO DAILY@0800 02/15/21 10/27/21 History Umeclidinium Brm/Vilanterol Tr 1 puff INHALATION RT-DAILY@0800 02/15/21 10/27/21 History [Anoro Ellipta 62.5-25 Mcg INH] Acetaminophen Tab [Tylenol] 650 mg PO Q6HR PRN tab 02/18/21 10/27/21 Rx Ipratropium Nebulized [Atrovent 0.5 mg INHALATION RT-QID PRN 03/01/21 10/27/21 History Nebulized 0.2 MG/ML] Omeprazole 20 mg PO DAILY@0800 03/01/21 10/27/21 History Sertraline [Zoloft] 25 mg PO HS 03/01/21 10/27/21 History Albuterol Sulfate [Proair Hfa] 2 puff INHALATION RT-Q4H 04/29/21 10/27/21 History Multivitamins, Thera [Multivitamin 1 tab PO DAILY@1200 04/29/21 10/27/21 History (formulary)] Nitroglycerin Sl Tabs [Nitrostat] 0.4 mg SL Q5M PRN 04/29/21 10/27/21 History Sennosides [Senna] 8.6 mg PO HS PRN #30 tablet 05/02/21 10/27/21 Rx Apixaban [Eliquis] 2.5 mg PO BID@0800,1700 06/27/21 10/27/21 History Atorvastatin [Lipitor] 40 mg PO HS 06/27/21 10/27/21 History Cyproheptadine [Cyproheptadine HCl] 8 mg PO DAILY@0800 06/27/21 10/27/21 History Ensure Enlive 237 ml PO TID@0800,1200,1700 06/27/21 10/27/21 History Ferrous Sulfate [Iron (65 MG 325 mg PO BID@0800,1700 06/27/21 10/27/21 History Elemental)] Isosorbide Mononitrate ER [Imdur] 30 mg PO DAILY@0800 06/27/21 10/27/21 History Losartan [Cozaar] 50 mg PO DAILY@0800 06/27/21 10/27/21 History Magnesium Hydroxide [Milk of 7,200 mg PO Q48H PRN 06/27/21 10/27/21 History Magnesia Concentrate] Na Phos,M-B/Na Phos,Di-Ba [Fleet 133 ml RECTAL DAILY PRN 06/27/21 10/27/21 History Adult] bisacodyL [Dulcolax] 10 mg RECTAL DAILY PRN 06/27/21 10/27/21 History Cyproheptadine [Cyproheptadine HCl] 4 mg PO HS 10/27/21 10/27/21 History Potassium Chloride [Potassium 10 meq PO DAILY@1700 10/27/21 10/27/21 History Chloride ER] Allergies Allergy/AdvReac Type Severity Reaction Status Date / Time azithromycin Allergy Unknown Verified 10/27/21 19:14 mussels Allergy Unknown Verified 10/27/21 19:14 codeine AdvReac Nausea & Verified 10/27/21 19:14 Vomiting Sulfa (Sulfonamide AdvReac Nausea & Verified 10/27/21 19:14 Antibiotics) Vomiting Physical Examination On examination, the patient is lying in bed in no apparent distress. She is alert and oriented 0. She is arousable. There is an abrasion of the posterior scalp with bleeding. On inspection of her left upper extremity, there are no obvious deformities or signs of trauma. On inspection of her right upper extremity, there is very minimal swelling and a small area of ecchymosis at the right elbow. No open wounds or lacerations. There is mild pain on palpation of the right elbow. There is very minimal pain with passive range of motion of the right elbow. Motor and sensory function is intact of the right upper extremity, radial pulses easily palpable, the right upper extremities were well perfused. On inspection of the bilateral lower extremity is, and there are no obvious def ormities or signs of trauma. No pain with passive range of motion of the bilateral hips. Motor and sensory function is intact of the bilateral lower extremities, bilateral lower extremes are warm and well perfused. On inspection of the back, there are no lacerations, abrasions, ecchymosis, signs of trauma. There is mild pain on palpation of the spine. No step-offs appreciated. No obvious deformities. Results CT abdomen and pelvis 10/27/21: Acute T12 compression fracture Right elbow x-ray 10/27/21: Possible nondisplaced fracture at the tip of the olecranon. No additional fractures or abnormalities identified. No dislocation. - Labs Labs: Abnormal Lab Results - Last 24 Hours (Table) 10/27/21 10/28/21 Range/Units 15:42 13:20 BUN 29 H (7-17) mg/dL AST 62 H (14-36) U/L ALT 64 H (4-34) U/L Urine Appearance Cloudy H (Clear) Urine Protein 1+ H (Negative) Urine Blood Moderate H (Negative) Ur Leukocyte Esterase Large H (Negative) Urine RBC 19 H (0-5) /hpf Urine WBC 156 H (0-5) /hpf Amorphous Sediment Occasional H (None) /hpf Urine Bacteria Rare H (None) /hpf Hyaline Casts 3 H (0-2) /lpf Urine Mucus Few H (None) /hpf H & H 10/27/21 Range/Units 15:42 Hgb 12.1 (11.4-16.0) gm/dL Hct 39.8 (34.0-46.0) % Coagulation 10/27/21 Range/Units 15:42 INR 1.0 (<1.2) Result Diagrams: 10/27/21 15:42 10/27/21 15:42 Assessment and Plan Assessment: Acute T12 compression fracture Right elbow pain Possible non-displaced fracture tip of the olecranon, right elbow Plan: - The clinical and imaging findings with discussed with the patient and her daughter. The patient was discussed in detail with Dr. Muir. No surgical intervention is recommended at this time. - Recommend an LSO brace for comfort while out of bed. She does not need to wear the brace while in bed or while in the shower. - She may ambulate and mobilize as tolerated if cleared by internal medicine. Fall precautions. - Pain management as needed. - We will follow patient as she remains inpatient.
[2021-10-28] MEDS: ACETAMINOPHEN TAB 325 MG TAB PO PRN (16:23)
[2021-10-28] MEDS: ATORVASTATIN 40 MG TAB PO SCH (19:53)
[2021-10-28] MEDS ORDERED: KETOROLAC 15 MG/ML 1 ML VIAL IVP STA (21:20)
[2021-10-29] MEDS: DOCUSATE 100 MG CAP PO SCH ×4 (00:25→21:36)
[2021-10-29] MEDS: LEVOTHYROXINE 75 MCG TAB PO SCH (05:30)
[2021-10-29] MEDS: ACETAMINOPHEN TAB 325 MG TAB PO PRN ×2 (05:30→20:24)
[2021-10-29] MEDS: LACTULOSE 20 GM/30 ML CUP PO SCH (07:00)
[2021-10-29] MEDS: METOPROLOL TARTRATE 25 MG TAB PO SCH ×2 (07:01→20:22)
[2021-10-29] MEDS: FERROUS SULFATE 325 MG TAB PO SCH ×2 (07:01→20:22)
--- NOTE | 2021-10-29 07:47 | P.PN ---
Progress Note - Text Progress Note Date: 10/29/21 Patient is seen and examined today at bedside. I was able to review the images and discuss the patient yesterday as well. The patient is arousable but essentially noncommunicative details. She is not really following significant commands but is pleasant. She has some global discomfort when she tries to move but is difficult to localize any specific complaint this morning. On exam She is breathing on room air. She is arousable but does not converse. She does not seem to localize pain at this point. She will move her arms and her legs voluntarily. She is not really following commands. She seems to have some discomfort when she tries to move in bed around her back. Her thighs and calves soft nontender. Her back seems to have some tenderness with palpation but is difficult to localize. Assessment and plan History of dementia Status post fall in the bathroom yesterday Likely new fracture at L1 without neurologic change I think the patient has a new injury at L1. She is neurologically appears intact at her lower extremities. With her mechanism and her symptoms I think it is worthwhile to treat her with a brace as this could give her some comfort when she tries to mobilize or ambulate. She does not need to use the brace while in bed or if she is seated with good support behind her. She may use the brace in a chair she would like otherwise should use it during therapy and for ambulation. I do not have any plans for surgical intervention at this point. I don't think that we need advanced imaging of her lumbar spine at this point. We will plan conservative treatment and from a orthopedic spine standpoint is okay for her to be discharged with an LSO brace prescription and follow-up in approximately 2-3 weeks as an outpatient or at least for repeat imaging and telaleath visit.
[2021-10-29] MEDS: IPRATROPIUM-ALBUTEROL 3 ML NEB INHALATION SCH ×4 (07:54→19:17)
[2021-10-29] MEDS: FORMOTEROL FUMARATE 20 MCG/2 ML NEBU INHALATION SCH ×2 (07:54→19:17)
[2021-10-29 08:40] LABS: Basophils # (A) 0.04 X 10*3/uL (0.00-0.10); Basophils % (A) 0.6 %; Eosinophils # (A) 0.34 X 10*3/uL (0.04-0.35); HCT 30.4 % (37.2-46.3); HGB 9.3 g/dL (12.0-15.0); Immature Grans, Automated 0.4 %; Lymphocytes # (A) 0.94 X 10*3/uL (0.90-5.00); Lymphocytes % (A) 13.9 %; MCH 29.5 pg (27.0-32.0); MCHC 30.6 g/dL (32.0-37.0); MCV 96.5 fL (80.0-97.0); Mean Platelet Volume 11.2 fL (9.5-12.2); Monocytes # (A) 0.59 X 10*3/uL (0.20-1.00); Monocytes % (A) 8.7 %; NRBC Per 100 WBC 0 /100 WBCS (0.0-0.0); Neutrophils # (A) 4.82 X 10*3/uL (1.80-7.70); Neutrophils % (A) 71.4 %; Platelet Count 151 X 10*3/uL (140-440); RBC 3.15 X 10*6/uL (4.10-5.20); RDW 14.7 % (11.5-14.5); WBC 6.76 X 10*3/uL (4.50-10.00)
[2021-10-29 08:57] LABS: BUN/Creat Ratio 37.08 Ratio (12.00-20.00)
[2021-10-29 08:58] LABS: African American GFR (CKD) 84.1 (60.0-200.0); Anion Gap 8.7 mmol/L (10.00-18.00); Blood Urea Nitrogen 27.7 mg/dL (9.0-27.0); Calcium 8.7 mg/dL (8.7-10.3); Carbon Dioxide 25.4 mmol/L (20.0-27.5); Magnesium 1.8 mg/dL (1.5-2.4); Non-African American GFR(CKD) 72.5 (60.0-200.0); Potassium 3.8 mmol/L (3.5-5.5)
--- NOTE | 2021-10-29 10:32 | P.CNNES ---
History of Present Illness Consult date: 10/28/21 Requesting physician: Gurvinder Iyer Reason for Consult: Altered mental status History of Present Illness: Patient is a 86-year-old female with history of dementia, [facility] of [facility], came to the hospital by ambulance yesterday at 3:07 PM for a syncopal spell. Patient not able to provide any history. As per EMS flow sheet, when they arrived, patient was alert awake complaining of head pain in right elbow pain. Staff reported patient locked herself in the bathroom and suffered from a fall. Unknown if loss of consciousness. Patient had a contusion to the back of her head toward the top. Patient moved to the stretcher. Patient is on home oxygen 24-7 basis for COPD at 2 L/m nasal cannula. Patient's vitals at the scene was blood pressure 160/64 pulse rate 64 respirations 18, saturation 92% Patient's daughter was also present, who also provided with a history. Patient has developed dementia about a year ago and it has rapidly progressed. Now it is severe. 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 Patient suffered from Covid, and also later was given the booster dose. Apparently thereafter patient developed cognitive decline, which has progressed very fast in the last 1 year. Patient was previously admitted to the hospital, seen by myself in February 2021 for difficulty breathing, dizziness and palpitations. Patient was found to have positive stress test at that time. Patient had an EEG performed on 03/02/2021, which was abnormal EEG due to background slowing of mild degree. This can be seen with encephalopathy of metabolic, vascular or degenerative causes. No epileptiform activity was seen. Patient had an MRI of the brain with and without contrast on 10/19/2020, which revealed age-related atrophy and chronic small vessel ischemia. [facility] was [facility] to [facility], and has been present there since then. Her dementia has significantly progressed over this 1 year. Patient currently not on any cognitive enhancing medication. Patient has not walked since her admission in February 2021. She has not seen a neurologist as an outpatient yet. Patient's daughter does not know details about the fall yesterday. Apparently she is not supposed to walk by herself but she knows how to turn off the alarm. She turned off the bed alarm, got up, got into the wheelchair, and went to the bathroom, sharp the door, and fell down. She did hit her head. Patient did not bite her tongue. Patient still able to hold conversation at times, but since yesterday, she has developed severe confusion, cannot hold a conversation. Patient's daughter states that she has suffered from another fall couple months ago but she felt on the buttocks. No history of seizure. Patient's blood test shows normal CBC, PT/PTT, Chem-7, AST is elevated 62, ALT 64. UA shows large amount of leukocyte esterase, 156 WBC and rare bacteria. Patient's last hemoglobin A1c 5.8 on 11/13/2018. CT head showed no acute intracranial process, posterior scalp hematoma. Nonspecific white matter changes, likely secondary to chronic small vessel ischemic disease. CT of the cervical spine showed no evidence of cervical spine fracture. CT of the abdomen and pelvis showed suspected acute T12 compression deformity with 3 mm retropulsion and less than 25% height loss. Correlate with point tenderness. EKG shows sinus rhythm, possible right ventricular conduction delay. Patient's grandfather also had suffered from dementia at age 70. Patient was a light smoker, 3-4 cigarettes per day, but for extended period of time from age 14 until she quit in February 2021. Review of Systems ROS unobtainable: due to mental status Past Medical History Past Medical History: Atrial Fibrillation, Cancer, Heart Failure, COPD, GERD/Reflux, Hyperlipidemia, Hypertension, Thyroid Disorder Additional Past Medical History / Comment(s): Brugada syndrome, Afib RVR, bladder CA treated with instillation, melanoma removed under L arm with surgery, past home oxygen use but not currently, hiatal hernia, hypothyroid, arthritis m ostly in back, UTIs, allergies. hx of constipation History of Any Multi-Drug Resistant Organisms: None Reported Past Surgical History: Adenoidectomy, Back Surgery, Bladder Surgery, Breast Surgery, Hysterectomy, Orthopedic Surgery, Tonsillectomy Additional Past Surgical History / Comment(s): R knee arthroscopic surgery, lumb ar laminectomy, R rotator cuff repair, D&C, total hysterectomy, L arm melanoma excised, cystoscopy for instillation to burn bladder holder d/t bladder cancer, R breast benign bx, bilateral cataract removals, bilateral vein stripping, EGD, colonoscopy Past Anesthesia/Blood Transfusion Reactions: Postoperative Nausea & Vomiting (PONV) Additional Past Anesthesia/Blood Transfusion Reaction / Comment(s): Pt has received blood in past without reaction. Past Psychological History: Anxiety, Depression Additional Psychological History / Comment(s): pt lives at [facility] in memory care unit. Smoking Status: Former smoker Past Alcohol Use History: None Reported Additional Past Alcohol Use History / Comment(s): Pt started smoking in 1956 and quit in 2017. Past Drug Use History: None Reported - Past Family History Mother Family Medical History: Cancer, Pneumonia, Respiratory Disorder Additional Family Medical History / Comment(s): TB, uterine cancer. Father Family Medical History: No Reported History Additional Family Medical History / Comment(s): Father was healthy. Medications and Allergies Home Medications Medication Instructions Recorded Confirmed Type Levothyroxine Sodium [Synthroid] 75 mcg PO DAILY@0600 12/11/18 10/27/21 History Levocetirizine Dihydrochloride 5 mg PO DAILY@0800 05/19/19 10/27/21 History [Xyzal] Metoprolol Tartrate [Lopressor] 25 mg PO BID@0800,1700 05/19/19 10/27/21 History Lactulose 10 gm PO DAILY@0800 02/15/21 10/27/21 History Umeclidinium Brm/Vilanterol Tr 1 puff INHALATION RT-DAILY@0800 02/15/21 10/27/21 History [Anoro Ellipta 62.5-25 Mcg INH] Acetaminophen Tab [Tylenol] 650 mg PO Q6HR PRN tab 02/18/21 10/27/21 Rx Ipratropium Nebulized [Atrovent 0.5 mg INHALATION RT-QID PRN 03/01/21 10/27/21 History Nebulized 0.2 MG/ML] Omeprazole 20 mg PO DAILY@0800 03/01/21 10/27/21 History Sertraline [Zoloft] 25 mg PO HS 03/01/21 10/27/21 History Albuterol Sulfate [Proair Hfa] 2 puff INHALATION RT-Q4H 04/29/21 10/27/21 History Multivitamins, Thera [Multivitamin 1 tab PO DAILY@1200 04/29/21 10/27/21 History (formulary)] Nitroglycerin Sl Tabs [Nitrostat] 0.4 mg SL Q5M PRN 04/29/21 10/27/21 History Sennosides [Senna] 8.6 mg PO HS PRN #30 tablet 05/02/21 10/27/21 Rx Apixaban [Eliquis] 2.5 mg PO BID@0800,1700 06/27/21 10/27/21 History Atorvastatin [Lipitor] 40 mg PO HS 06/27/21 10/27/21 History Cyproheptadine [Cyproheptadine HCl] 8 mg PO DAILY@0800 06/27/21 10/27/21 History Ensure Enlive 237 ml PO TID@0800,1200,1700 06/27/21 10/27/21 History Ferrous Sulfate [Iron (65 MG 325 mg PO BID@0800,1700 06/27/21 10/27/21 History Elemental)] Isosorbide Mononitrate ER [Imdur] 30 mg PO DAILY@0800 06/27/21 10/27/21 History Losartan [Cozaar] 50 mg PO DAILY@0800 06/27/21 10/27/21 History Magnesium Hydroxide [Milk of 7,200 mg PO Q48H PRN 06/27/21 10/27/21 History Magnesia Concentrate] Na Phos,M-B/Na Phos,Di-Ba [Fleet 133 ml RECTAL DAILY PRN 06/27/21 10/27/21 History Adult] bisacodyL [Dulcolax] 10 mg RECTAL DAILY PRN 06/27/21 10/27/21 History Cyproheptadine [Cyproheptadine HCl] 4 mg PO HS 10/27/21 10/27/21 History Potassium Chloride [Potassium 10 meq PO DAILY@1700 10/27/21 10/27/21 History Chloride ER] Allergies Allergy/AdvReac Type Severity Reaction Status Date / Time azithromycin Allergy Unknown Verified 10/27/21 19:14 mussels Allergy Unknown Verified 10/27/21 19:14 codeine AdvReac Nausea & Verified 10/27/21 19:14 Vomiting Sulfa (Sulfonamide AdvReac Nausea & Verified 10/27/21 19:14 Antibiotics) Vomiting Physical Examination - Vital Signs Vital Signs: Vital Signs Temp Pulse Pulse Resp BP BP Pulse Ox 10/28/21 15:53 112 H 10/28/21 15:43 111 H 10/28/21 13:07 98.2 F 74 17 110/57 97 10/28/21 12:42 80 16 10/28/21 12:32 79 16 10/28/21 06:41 97.3 F L 66 17 95/58 90 L 10/28/21 02:00 98.2 F 82 16 112/59 91 L 10/27/21 19:09 98.6 F 78 180/76 94 L Intake and Output 10/28/21 10/28/21 10/28/21 06:59 14:59 22:59 Output Total 2487 Balance -2487 Output: Urine 1680 Post Void Residual 807 Other: # Bowel Movements 0 Weight 39.916 kg Patient is an elderly female, laying comfortably in the bed, p leasantly confused. Patient appears cachectic. Patient is alert awake, apparently talking to her toy bear. Patient able to name simple objects like a pen, glasses, but not the earlobe. She would not repeat, and appears at times to have word salad, delirious, fluctuating mental status. No obvious dysarthria. Attention, concentration and fund of knowledge is very limited. On cranial examination, pupils are round and reacting to light, visual baca could not be tested reliably. She blinks to visual threat bilaterally. Her extraocular muscles are intact with no nystagmus. Face is symmetric, tongue protrudes to the midline. Palatal elevation and sensation normal, hearing is decreased and shoulder shrug normal, facial sensation normal. Shoulder shrug normal. On muscle strength testing, there is no pronator drift. The strength is normal in arms and legs distally and proximally in the arms and legs. Equal strength. Deep tendon reflexes are symmetric, 2+ all over and plantars downgoing. Sensory and cerebellar functions could not be tested because of her mental status. Cerebellar: No ataxia for [id number] testing. Tone of muscles normal. Patient is overall slightly malnourished/cachectic. Gait Not checked . On general examination, there is no carotid bruit or murmur, S1-S2 audible. Abdomen is soft nontender. bowel sounds present. No organomegaly. Chest is clear to auscultation. Peripheral pulses are present. No edema. Results - Laboratory Findings CBC and BMP: 10/30/21 10:09 10/29/21 05:50 Abnormal Lab Findings: Abnormal Labs 10/27/21 10/27/21 10/28/21 15:42 15:42 13:20 MCHC 30.5 L BUN 29 H AST 62 H ALT 64 H Urine Appearance Cloudy H Urine Protein 1+ H Urine Blood Moderate H Ur Leukocyte Esterase Large H Urine RBC 19 H Urine WBC 156 H Amorphous Sediment Occasional H Urine Bacteria Rare H Hyaline Casts 3 H Urine Mucus Few H Assessment and Plan Assessment: * Syncopal spell, probably vasovagal, rule out arrhythmia. * Acute UTI * Acute delirium due to UTI. * Dementia, moderate to severe in degree. * Acute T12 compression fracture * Possible nondisplaced fracture tip of the return on right elbow. * Atrial fibrillation, on Eliquis 2.5 mg twice a day * Hyperlipidemia * Hypertension * Light smoker, for extended period of time. Plan: * Patient has acute UTI. Recommend starting antibiotics for UTI. * Patient's dementia is quite advanced. We will start Aricept 5 mg daily. After 1 month the dose can be increased to 10 mg daily. Patient has not been on any cognitive enhancing medication. Subsequently would recommend adding Namenda. * Patient has atrial fibrillation, was on Eliquis. Suggest resuming Eliquis when medically cleared. * Patient had a normal carotid Doppler less than a year ago, therefore no need to repeat. * Patient had a normal echo less than a year ago, no need to repeat. * Patient had normal B12, folate levels checked recently. * Orthopedic surgery also on board for compression fracture and right tip of Olecranon process fracture. * Neurology will follow. Thank you for the consult.
[2021-10-29] MEDS ORDERED: MAGNESIUM HYDROXIDE 2,400 MG/10 ML CUP PO PRN (11:36)
--- NOTE | 2021-10-29 11:43 | P.PN ---
Subjective This is a pleasant 8 years old male with past medical history of hypothyroidism, coronary artery disease status post stent and pacemaker, vertigo, lymphoma since 2012, left bundle-branch block. Seizure Was sent from her medicine doctor rule out pulmonary embolism. 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 His oncologist is Dr. Diop, and he was getting chemotherapy last summer, end of March and switched immunotherapy after that which did not help him much so started on a new chemotherapy but feels has lowered into once a day after he developed some low platelet count as he states. For the last week he was getting progressive shortness of breath with wounding and left-sided pleuritic-like chest pain that increases with deep breathing and movement and felt like sharp, He denies any vomiting or diarrhea, he has some difficulty to initiate urination but no dysuria Vitals are stable. wbc of 3.3, hemoglobin 10.0 and platelet count 114 D-dimer is elevated at 5.6. INR is normal is 0.9. Creatinine is elevated at 1.8. Last month was 1.4 and before that was ranging 1.0-1.3. Emergency room patient was started on heparin drip and normal saline 10/29/2021 Patient remains confused with slight improvement, she can answer some questions, most likely is secondary to urinary tract infection with currently being treated with Rocephin and culture is pending. Neurologist on the case and she has advanced dementia and started on Donpezil. I don't think the patient has syncope but most likely she has altered mental status, because she didn't regained her consciousness after she fell. Most likely patient has metabolic/toxic encephalopathy secondary to UTI and complicated by other factors, including her advanced dementia, dehydration, and urinary retention and constipation Also Eliquis is resumed she is complaining of from a little suprapubic tenderness "it is a little touchy"as she describes She has a Ruffin catheter for urinary retention We increase her Colace and added milk of magnesia when necessary for her constipation as she has a large stone burden in her colon. Enemas ordered as needed. She remains on ceftriaxone, D5 normal saline at 50 mL per hour Resume her Eliquis and Pepcid. Hemoglobin is 9.3 today. Objective - Vital Signs Vital signs: Vital Signs Temp 98 F 10/29/21 07:49 Pulse 75 10/29/21 08:16 Resp 15 10/29/21 07:49 BP 123/64 10/29/21 07:49 Pulse Ox 94 L 10/29/21 07:49 FiO2 Intake & Output 10/28/21 10/29/21 10/29/21 18:59 06:59 18:59 Output Total 550 Balance -550 Weight 39.916 kg Output: Urine 550 Other: Voiding Method Indwelling Catheter # Bowel Movements 0 - Exam -GENERAL: The patient is still confused but slightly better than yesterday. She does not follow commands. She is frail and cachectic HEENT: Pupils are round and equally reacting to light. EOMI. No scleral icterus. No conjunctival pallor. Normocephalic, atraumatic. No pharyngeal erythema. No thyromegaly. CARDIOVASCULAR: S1 and S2 present. No murmurs, rubs, or gallops. PULMONARY: Chest is clear to auscultation, no wheezing or crackles. ABDOMEN: Soft, nontender, nondistended, normoactive bowel sounds. No palpable organomegaly. MUSCULOSKELETAL: No joint swelling or deformity. EXTREMITIES: No cyanosis, clubbing, or pedal edema. NEUROLOGICAL: Gross neurological examination did not reveal any focal deficits. SKIN: No rashes. no petechiae. - Labs CBC & Chem 7: 10/29/21 05:50 10/29/21 05:50 Labs: Abnormal Lab Results - Last 24 Hours (Table) 10/28/21 10/29/21 10/29/21 Range/Units 13:20 05:50 05:50 RBC 3.15 L (4.10-5.20) X 10*6/uL Hgb 9.3 L (12.0-15.0) g/dL Hct 30.4 L (37.2-46.3) % MCHC 30.6 L (32.0-37.0) g/dL RDW 14.7 H (11.5-14.5) % Anion Gap 8.70 L (10.00-18.00) mmol/L BUN 27.7 H (9.0-27.0) mg/dL BUN/Creatinine Ratio 37.08 H (12.00-20.00) Ratio Urine Appearance Cloudy H (Clear) Urine Protein 1+ H (Negative) Urine Blood Moderate H (Negative) Ur Leukocyte Esterase Large H (Negative) Urine RBC 19 H (0-5) /hpf Urine WBC 156 H (0-5) /hpf Amorphous Sediment Occasional H (None) /hpf Urine Bacteria Rare H (None) /hpf Hyaline Casts 3 H (0-2) /lpf Urine Mucus Few H (None) /hpf Microbiology - Last 24 Hours (Table) 10/28/21 13:20 Urine Culture - Preliminary Urine,Voided Assessment and Plan Assessment: Operative mental status, most likely metabolic encephalopathy hypoxic encephalopathy. Fall in the bathroom, likely syncope Acute urinary tract infection Urinary retention status post Ruffin Constipation T12 compression fracture 25%, acute Possible nondisplaced cortical only olecranon fracture Posterior scalp hematoma severe calories protein malnutrition Emphysema, no acute exacerbation Constipation with large stool burden throughout the colon History of arthritis and chronic back pain status post lumbar laminectomy. Chronic atrial fibrillation on Eliquis COPD, no acute exacerbation History of GERD: Hyperlipidemia Hypertension Hypothyroidism Brugada syndrome History of bladder cancer status post bladder surgery History of hiatal hernia Plan: This is a pleasant 86 years old female who presents with back pain Start ceftriaxone follow-up urine culture Colace and enema as needed Continue with the physical Neurology input is appreciated Orthopedic team consult, recommended a brace and follow up as an outpatient Stool softeners Labs and medication were reviewed.. Continue same treatment. Continue with symptomatic treatment. Resume home medication. Monitor lytes and vitals. DVT and GI prophylaxis. Further recommendations as per clinical course of the patient DVT prophylaxis: Subcutaneous heparin GI Prophylaxis: Pepcid PT/OT: Pending Prognosis is guarded Patient might benefit from palliative consult. Long-term prognosis is very poor
[2021-10-29] MEDS: MULTIVITAMINS, THERA 1 EACH TAB PO SCH (12:23)
[2021-10-29] MEDS: DEXTROSE 5%-0.9% NACL 1,000 ML IV SCH (12:23)
[2021-10-29] MEDS: APIXABAN 2.5 MG TABLET PO SCH (17:09)
[2021-10-29] MEDS: ATORVASTATIN 40 MG TAB PO SCH (20:22)
[2021-10-29] MEDS: DONEPEZIL 5 MG TAB PO SCH (20:22)
[2021-10-29] MEDS: FAMOTIDINE 20 MG/2 ML VIAL IV SCH (21:36)
[2021-10-30] MEDS: DEXTROSE 5%-0.9% NACL 1,000 ML IV SCH ×2 (04:34→23:37)
[2021-10-30] MEDS: ACETAMINOPHEN TAB 325 MG TAB PO PRN ×3 (04:42→20:17)
[2021-10-30] MEDS: LEVOTHYROXINE 75 MCG TAB PO SCH (04:42)
[2021-10-30] MEDS: FORMOTEROL FUMARATE 20 MCG/2 ML NEBU INHALATION SCH ×2 (07:39→19:00)
[2021-10-30] MEDS: IPRATROPIUM-ALBUTEROL 3 ML NEB INHALATION SCH ×4 (07:39→19:00)
[2021-10-30] MEDS: FERROUS SULFATE 325 MG TAB PO SCH ×2 (09:16→20:17)
[2021-10-30] MEDS: LACTULOSE 20 GM/30 ML CUP PO SCH (09:16)
[2021-10-30] MEDS: METOPROLOL TARTRATE 25 MG TAB PO SCH ×2 (09:16→20:17)
[2021-10-30] MEDS: APIXABAN 2.5 MG TABLET PO SCH ×2 (09:16→16:33)
[2021-10-30] MEDS: DOCUSATE 100 MG CAP PO SCH ×3 (09:16→21:34)
[2021-10-30] MEDS: FAMOTIDINE 20 MG/2 ML VIAL IV SCH ×2 (09:16→21:34)
[2021-10-30 10:44] LABS: Basophils % (A) 1 %; Eosinophils # (A) 0.2 k/uL (0-0.7); Eosinophils % (A) 3 %; HCT 31.2 % (34.0-46.0); Hypochromasia Slight; Lymphocytes # (A) 0.9 k/uL (1.0-4.8); Lymphocytes % (A) 12 %; MCH 31.4 pg (25.0-35.0); MCHC 32.1 g/dL (31.0-37.0); MCV 97.6 fL (80.0-100.0); Mean Platelet Volume 8.2; Monocytes # (A) 0.4 k/uL (0-1.0); Monocytes % (A) 6 %; Neutrophils # (A) 5.7 k/uL (1.3-7.7); Neutrophils % (A) 77 %; Platelet Count 159 k/uL (150-450); RDW 14.9 % (11.5-15.5); WBC 7.4 k/uL (3.8-10.6)
[2021-10-30] MEDS: MULTIVITAMINS, THERA 1 EACH TAB PO SCH (12:22)
[2021-10-30 16:59] LABS: BUN/Creat Ratio 42.01 Ratio (12.00-20.00); Blood Urea Nitrogen 24.2 mg/dL (9.0-27.0); Calcium 8.6 mg/dL (8.7-10.3); Carbon Dioxide 25.1 mmol/L (20.0-27.5); Chloride 108 mmol/L (96-109); Glucose 120 mg/dL (70-110); Magnesium 1.8 mg/dL (1.5-2.4); Non-African American GFR(CKD) 83.7 (60.0-200.0); Potassium 3.5 mmol/L (3.5-5.5); Sodium 143 mmol/L (135-145); VLDL Calculation 11.98 mg/dL (5.00-40.00)
[2021-10-30] MEDS: ATORVASTATIN 40 MG TAB PO SCH (20:17)
[2021-10-30] MEDS: DONEPEZIL 5 MG TAB PO SCH (20:17)
[2021-10-30] MEDS ORDERED: KETOROLAC 15 MG/ML 1 ML VIAL IVP STA (23:03)
[2021-10-31 02:58] VITALS: RESP 18
[2021-10-31] MEDS: ACETAMINOPHEN TAB 325 MG TAB PO PRN ×2 (03:00→05:03)
[2021-10-31] MEDS ORDERED: KETOROLAC 15 MG/ML 1 ML VIAL IVP STA (04:42)
[2021-10-31] MEDS: LEVOTHYROXINE 75 MCG TAB PO SCH (05:03)
[2021-10-31 07:47] VITALS: BP 191/76; TEMP 98.5
--- NOTE | 2021-10-31 07:52 | P.PN ---
Subjective Progress Note Date: 10/30/21 patient was seen for a follow-up. Patient's son and [id number] were present. Per family patient is doing better. No new concerns. Patient is pleasantly confused. She is continuing to talk with the toy bear. Objective - Vital Signs Vital signs: Vital Signs Temp 98.8 F 10/31/21 02:00 Pulse 81 10/31/21 02:00 Resp 18 10/31/21 02:00 BP 156/78 10/31/21 02:00 Pulse Ox 92 L 10/31/21 02:00 FiO2 Intake & Output 10/30/21 10/31/21 10/31/21 18:59 06:59 18:59 Output Total 800 700 Balance -800 -700 Output: Urine 800 700 Other: Voiding Method Indwelling Catheter Indwelling Catheter # Bowel Movements 1 - Exam patient is alert and awake, in no distress. Patient is pleasantly confused. She could not tell the current month, the year or what city or state she is in. Patient can name and repeat. Patient denies any headache. Patient's muscle strength is normal in the arms and legs. No ataxia for [id number] testing. Sensations appears intact. Her visual baca are full, face is symmetric. Patient has positive palmomental reflex on the right side. - Labs CBC & Chem 7: 10/30/21 10:09 10/30/21 10:09 Labs: Abnormal Lab Results - Last 24 Hours (Table) 10/30/21 10/30/21 Range/Units 10:09 10:09 RBC 3.20 L (3.80-5.40) m/uL Hgb 10.0 L D (11.4-16.0) gm/dL Hct 31.2 L (34.0-46.0) % Lymphocytes # 0.9 L (1.0-4.8) k/uL BUN/Creatinine Ratio 42.01 H (12.00-20.00) Ratio Glucose 120 H (70-110) mg/dL Calcium 8.6 L (8.7-10.3) mg/dL Microbiology - Last 24 Hours (Table) 10/28/21 13:20 Urine Culture - Final Urine,Voided Escherichia coli Assessment and Plan Assessment: * Syncopal spell, probably vasovagal, rule out arrhythmia. * Acute E. coli UTI * Acute delirium due to UTI. * Dementia, moderate to severe in degree. * Acute T12 compression fracture * Possible nondisplaced fracture tip of the Olecranon right elbow. * Atrial fibrillation, on Eliquis 2.5 mg twice a day * Hyperlipidemia * Hypertension * Light smoker, for extended period of time. Plan: * Patient has acute E Coli UTI. Patient has been started on ceftriaxone 1 g every 24 hours. * Patient's dementia is quite advanced. We will start Aricept 5 mg daily. After 1 month the dose can be increased to 10 mg daily. Patient has not been on any cognitive enhancing medication. Subsequently would recommend adding Namenda. * Patient has atrial fibrillation, was on Eliquis. Suggest resuming Eliquis when medically cleared. * Patient had a normal carotid Doppler less than a year ago, therefore no need to repeat. * Patient had a normal echo less than a year ago, no need to repeat. * Patient had normal B12, folate levels checked recently. * Orthopedic surgery also on board for compression fracture and right tip of Olecranon process fracture. * Recommend patient follow up with neurologist as an outpatient in 2-4 weeks. Neurology will sign off. Please reconsult if any concerns. Dr. Mervin Chiu will be starting neurology service in the morning.
[2021-10-31] MEDS: FAMOTIDINE 20 MG/2 ML VIAL IV SCH (08:08)
[2021-10-31] MEDS: APIXABAN 2.5 MG TABLET PO SCH (08:08)
[2021-10-31] MEDS: METOPROLOL TARTRATE 25 MG TAB PO SCH (08:08)
[2021-10-31] MEDS: FERROUS SULFATE 325 MG TAB PO SCH (08:08)
[2021-10-31] MEDS: DOCUSATE 100 MG CAP PO SCH ×2 (08:08→16:52)
[2021-10-31] MEDS: LACTULOSE 20 GM/30 ML CUP PO SCH (08:08)
[2021-10-31 08:46] LABS: Basophils # (A) 0.05 X 10*3/uL (0.00-0.10); Basophils % (A) 0.7 %; Eosinophils # (A) 0.23 X 10*3/uL (0.04-0.35); Eosinophils % (A) 3.4 %; HGB 8.9 g/dL (12.0-15.0); Immature Grans, Automated 0.4 %; Lymphocytes # (A) 0.75 X 10*3/uL (0.90-5.00); Lymphocytes % (A) 11.1 %; MCH 29.9 pg (27.0-32.0); MCHC 30.7 g/dL (32.0-37.0); MCV 97.3 fL (80.0-97.0); Mean Platelet Volume 10.7 fL (9.5-12.2); Monocytes # (A) 0.62 X 10*3/uL (0.20-1.00); Monocytes % (A) 9.2 %; NRBC Per 100 WBC 0 /100 WBCS (0.0-0.0); Neutrophils # (A) 5.08 X 10*3/uL (1.80-7.70); Neutrophils % (A) 75.2 %; Platelet Count 170 X 10*3/uL (140-440); RBC 2.98 X 10*6/uL (4.10-5.20); RDW 14.6 % (11.5-14.5); WBC 6.76 X 10*3/uL (4.50-10.00)
[2021-10-31 08:57] LABS: African American GFR (CKD) 97.7 (60.0-200.0); Anion Gap 10.6 mmol/L (10.00-18.00); BUN/Creat Ratio 33.45 Ratio (12.00-20.00); Blood Urea Nitrogen 18.8 mg/dL (9.0-27.0); Calcium 8.4 mg/dL (8.7-10.3); Carbon Dioxide 22.6 mmol/L (20.0-27.5); Magnesium 1.6 mg/dL (1.5-2.4); Non-African American GFR(CKD) 84.3 (60.0-200.0); Potassium 3.2 mmol/L (3.5-5.5)
[2021-10-31] MEDS: IPRATROPIUM-ALBUTEROL 3 ML NEB INHALATION SCH ×3 (09:21→16:52)
[2021-10-31] MEDS: FORMOTEROL FUMARATE 20 MCG/2 ML NEBU INHALATION SCH (09:29)
[2021-10-31] MEDS ORDERED: POTASSIUM CHLORIDE ER 20 MEQ TAB.ER PO STA (12:01)
[2021-10-31 12:42] VITALS: PULSE 74
[2021-10-31] MEDS: MULTIVITAMINS, THERA 1 EACH TAB PO SCH (13:34)
[2021-11-01] MEDS ORDERED: FAMOTIDINE 20 MG TAB PO SCH (09:00)
--- NOTE | 2021-11-02 21:46 | P.PN ---
Subjective This is a pleasant 8 years old male with past medical history of hypothyroidism, coronary artery disease status post stent and pacemaker, vertigo, lymphoma since 2012, left bundle-branch block. Seizure Was sent from her medicine doctor rule out pulmonary embolism. 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 His oncologist is Dr. Diop, and he was getting chemotherapy last summer, end of March and switched immunotherapy after that which did not help him much so started on a new chemotherapy but feels has lowered into once a day after he developed some low platelet count as he states. For the last week he was getting progressive shortness of breath with wounding and left-sided pleuritic-like chest pain that increases with deep breathing and movement and felt like sharp, He denies any vomiting or diarrhea, he has some difficulty to initiate urination but no dysuria Vitals are stable. wbc of 3.3, hemoglobin 10.0 and platelet count 114 D-dimer is elevated at 5.6. INR is normal is 0.9. Creatinine is elevated at 1.8. Last month was 1.4 and before that was ranging 1.0-1.3. Emergency room patient was started on heparin drip and normal saline 10/29/2021 Patient remains confused with slight improvement, she can answer some questions, most likely is secondary to urinary tract infection with currently being treated with Rocephin and culture is pending. Neurologist on the case and she has advanced dementia and started on Donpezil. I don't think the patient has syncope but most likely she has altered mental status, because she didn't regained her consciousness after she fell. Most likely patient has metabolic/toxic encephalopathy secondary to UTI and complicated by other factors, including her advanced dementia, dehydration, and urinary retention and constipation Also Eliquis is resumed she is complaining of from a little suprapubic tenderness "it is a little touchy"as she describes She has a Ruffin catheter for urinary retention We increase her Colace and added milk of magnesia when necessary for her constipation as she has a large stone burden in her colon. Enemas ordered as needed. She remains on ceftriaxone, D5 normal saline at 50 mL per hour Resume her Eliquis and Pepcid. Hemoglobin is 9.3 today. 10/30/2021 Patient today is more awake and alert and she was answering questions appropriately although she is confused, she does not motion the hospital and she could not tell to time or person. She follows commands appropriately. She fell last night but is symptomatic today. Ruffin catheter in place. Suprapubic tenderness significantly improved No report bowel movement.. She is eating decently 25-75% of her medial. Lipid panel was low, we're comment to discontinue statin diabetic Objective - Vital Signs Vital signs: Vital Signs Temp 98.2 F 10/30/21 08:00 Pulse 71 10/30/21 08:00 Resp 14 10/30/21 08:00 BP 170/63 10/30/21 08:00 Pulse Ox 98 10/30/21 08:00 FiO2 Intake & Output 10/29/21 10/30/21 10/30/21 18:59 06:59 18:59 Output Total 200 500 Balance -200 -500 Output: Urine 200 500 Other: Voiding Method Indwelling Catheter - Exam -GENERAL: The patient is still confused but slightly better than yesterday. She does not follow commands. She is frail and cachectic HEENT: Pupils are round and equally reacting to light. EOMI. No scleral icterus. No conjunctival pallor. Normocephalic, atraumatic. No pharyngeal erythema. No thyromegaly. CARDIOVASCULAR: S1 and S2 present. No murmurs, rubs, or gallops. PULMONARY: Chest is clear to auscultation, no wheezing or crackles. ABDOMEN: Soft, nontender, nondistended, normoactive bowel sounds. No palpable organomegaly. MUSCULOSKELETAL: No joint swelling or deformity. EXTREMITIES: No cyanosis, clubbing, or pedal edema. NEUROLOGICAL: Gross neurological examination did not reveal any focal deficits. SKIN: No rashes. no petechiae. - Labs CBC & Chem 7: 10/31/21 06:53 10/31/21 06:53 Labs: Abnormal Lab Results - Last 24 Hours (Table) 10/30/21 Range/Units 10:09 RBC 3.20 L (3.80-5.40) m/uL Hgb 10.0 L D (11.4-16.0) gm/dL Hct 31.2 L (34.0-46.0) % Lymphocytes # 0.9 L (1.0-4.8) k/uL Microbiology - Last 24 Hours (Table) 10/28/21 13:20 Urine Culture - Preliminary Urine,Voided Gram Neg Bacilli Assessment and Plan Assessment: Operative mental status, most likely metabolic encephalopathy hypoxic encephalopathy. Fall in the bathroom, likely syncope Acute urinary tract infection Urinary retention status post Ruffin Constipation T12 compression fracture 25%, acute Possible nondisplaced cortical only olecranon fracture Posterior scalp hematoma severe calories protein malnutrition Emphysema, no acute exacerbation Constipation with large stool burden throughout the colon History of arthritis and chronic back pain status post lumbar laminectomy. Chronic atrial fibrillation on Eliquis COPD, no acute exacerbation History of GERD: Hyperlipidemia Hypertension Hypothyroidism Brugada syndrome History of bladder cancer status post bladder surgery History of hiatal hernia Plan: This is a pleasant 86 years old female who presents with back pain Start ceftriaxone follow-up urine culture Colace and enema as needed Continue with the physical Neurology input is appreciated Orthopedic team consult, recommended a brace and follow up as an outpatient Stool softeners Labs and medication were reviewed.. Continue same treatment. Continue with symptomatic treatment. Resume home medication. Monitor lytes and vitals. DVT and GI prophylaxis. Further recommendations as per clinical course of the patient DVT prophylaxis: Subcutaneous heparin GI Prophylaxis: Pepcid PT/OT: Pending Prognosis is guarded Patient might benefit from palliative consult. Long-term prognosis is very poor
--- NOTE | 2021-11-03 13:28 | CDI ---
Documentation Clarification Form Date: 11/03/21 From: Symone Ross Admit Date: 10/27/2021 07:03:00 PM Patient Name: Shonna Nicole Visit Number: [id number] Discharge Date: 10/31/2021 04:31:00 PM ATTENTION: The Clinical Documentation Specialists (CDI) and [facility] Coding Staff appreciate your assistance in clarifying documentation. Please respond to the clarification below the line at the bottom and electronically sign. The CDI & [facility] Coding staff will review the response and follow-up if needed. Please note: Queries are made part of the Legal Health Record. If you have any questions, please contact the author of this message via ITS. Dr. Fabian Jean, A T12 compression fracture is documented in the H&P. Per 10/[address] Muir documents new L1 fracture. Per 10/[address] Muir non-displaced fracture tip of right olecranon. Additional clarification regarding the etiology of the fracture is requested. History/Risk Factors: Dementia, a fib, emphysema/COPD, HLD, HTN & CHF, severe PCM Clinical Indications: Frail, cachectic female allegedly fell in the bathroom prior to arrival. She does remember that she turned too quickly fell backwards. CT Results: Suspected acute T12 compression deformity with 3 mm retropulsion and less than 25% height loss. ELBOW XR: Osteopenia with marked muscle atrophy. Some posterior soft tissue swelling. There is very subtle lucency at the tip of the olecranon on the lateral view that could represent a subtle nondisplaced cortical olecranon fracture. Treatment: LSO brace for comfort while out of bed, Please clarify the etiology of all 3 fractures, if known: [ x ] Traumatic [ ] Pathological (specify cause): ___ [ ] Osteoporosis [ ] Other (please specify): [ ] Unable to determine MTDD
== END 2021-10-31 16:31 | DRG 551 ==
LOC: EC 15:07 → 4SSUR 19:03
PROVIDERS: ADMIT Hospitalist; ATTEND Hospitalist
DX: S22.089A Unspecified fracture of T11-T12 vertebra, initial encounter for closed fracture (principal); G92.8 Other toxic encephalopathy; E43 Unspecified severe protein-calorie malnutrition; R64 Cachexia; I48.20 Chronic atrial fibrillation, unspecified; N39.0 Urinary tract infection, site not specified; Z68.1 Body mass index [BMI] 19.9 or less, adult; G93.1 Anoxic brain damage, not elsewhere classified; S22.088A Other fracture of T11-T12 vertebra, initial encounter for closed fracture; F03.90 Unspecified dementia, unspecified severity, without behavioral disturbance, psychotic disturbance, mood disturbance, and anxiety; I11.0 Hypertensive heart disease with heart failure; I50.9 Heart failure, unspecified; J43.9 Emphysema, unspecified; Z66 Do not resuscitate; Z20.822 Contact with and (suspected) exposure to COVID-19; S52.024A Nondisplaced fracture of olecranon process without intraarticular extension of right ulna, initial encounter for closed fracture; S00.03XA Contusion of scalp, initial encounter; S00.01XA Abrasion of scalp, initial encounter; M85.80 Other specified disorders of bone density and structure, unspecified site; E86.0 Dehydration; B96.20 Unspecified Escherichia coli [E. coli] as the cause of diseases classified elsewhere; K21.9 Gastro-esophageal reflux disease without esophagitis; E78.5 Hyperlipidemia, unspecified; I49.8 Other specified cardiac arrhythmias; I25.10 Atherosclerotic heart disease of native coronary artery without angina pectoris; I44.7 Left bundle-branch block, unspecified; K44.9 Diaphragmatic hernia without obstruction or gangrene; K59.00 Constipation, unspecified; G89.29 Other chronic pain; M54.9 Dorsalgia, unspecified; E03.9 Hypothyroidism, unspecified; F32.A Depression, unspecified; F41.9 Anxiety disorder, unspecified; R55 Syncope and collapse; R33.9 Retention of urine, unspecified; M19.90 Unspecified osteoarthritis, unspecified site; Z99.81 Dependence on supplemental oxygen; Z79.01 Long term (current) use of anticoagulants; Z79.890 Hormone replacement therapy; Z79.899 Other long term (current) drug therapy; Z87.891 Personal history of nicotine dependence; Z85.51 Personal history of malignant neoplasm of bladder; Z85.820 Personal history of malignant melanoma of skin; Z87.440 Personal history of urinary (tract) infections; Z90.89 Acquired absence of other organs; Z90.710 Acquired absence of both cervix and uterus; Z87.42 Personal history of other diseases of the female genital tract; Z87.39 Personal history of other diseases of the musculoskeletal system and connective tissue; Z86.018 Personal history of other benign neoplasm; Z98.42 Cataract extraction status, left eye; Z98.41 Cataract extraction status, right eye; Z95.5 Presence of coronary angioplasty implant and graft; Z95.0 Presence of cardiac pacemaker; Z86.79 Personal history of other diseases of the circulatory system; Z85.72 Personal history of non-Hodgkin lymphomas; Z92.21 Personal history of antineoplastic chemotherapy; Z86.69 Personal history of other diseases of the nervous system and sense organs; Z98.890 Other specified postprocedural states; Z71.3 Dietary counseling and surveillance; W19.XXXA Unspecified fall, initial encounter; Y92.121 Bathroom in nursing home as the place of occurrence of the external cause; Z88.2 Allergy status to sulfonamides; Z88.1 Allergy status to other antibiotic agents; Z88.5 Allergy status to narcotic agent; Z91.013 Allergy to seafood; Z80.49 Family history of malignant neoplasm of other genital organs; Z83.1 Family history of other infectious and parasitic diseases; Z83.6 Family history of other diseases of the respiratory system
CPT/HCPCS: 36415; 70450; 72125; 74176; 80048; 80053; 80061; 81001; 83735; 85025; 85610; 85730; 87077; 87086; 87186; 87635; 93005; 94640; 94760; 96374; 96375; 96376; 99285

== ENCOUNTER 2021-11-02 19:13 | Inpatient (IN) | payer MEDICARE, BC ==
[2021-11-02 19:54] LABS: Anisocytosis Slight; Basophils # (A) 0.1 k/uL (0-0.2); Basophils % (A) 1 %; Eosinophils # (A) 0.2 k/uL (0-0.7); Eosinophils % (A) 3 %; HCT 20.1 % (34.0-46.0); Hypochromasia Slight; Lymphocytes # (A) 1.4 k/uL (1.0-4.8); Lymphocytes % (A) 21 %; MCH 30.3 pg (25.0-35.0); MCV 97.7 fL (80.0-100.0); Macrocytosis Slight; Mean Platelet Volume 7.8; Monocytes # (A) 0.4 k/uL (0-1.0); Monocytes % (A) 6 %; Neutrophils # (A) 4.4 k/uL (1.3-7.7); Neutrophils % (A) 67 %; Platelet Count 226 k/uL (150-450); RBC 2.05 m/uL (3.80-5.40); RDW 16.1 % (11.5-15.5); WBC 6.6 k/uL (3.8-10.6)
[2021-11-02 20:03] LABS: HGB 6.2 gm/dL (11.4-16.0)
[2021-11-02 20:04] LABS: ALT 62 U/L (4-34); AST 87 U/L (14-36); African American GFR (CKD) >90 (>60 ml/min/1.73 sqM); Alkaline Phosphatase 83 U/L (38-126); Anion Gap 6 mmol/L; Blood Urea Nitrogen 43 mg/dL (7-17); Calcium 8.4 mg/dL (8.4-10.2); Carbon Dioxide 23 mmol/L (22-30); Chloride 110 mmol/L (98-107); Glucose 100 mg/dL (74-99); Non-African American GFR(CKD) 81 (>60 ml/min/1.73 sqM); Potassium 2.9 mmol/L (3.5-5.1); Sodium 139 mmol/L (137-145); Total Bilirubin 0.5 mg/dL (0.2-1.3); Total Protein 5.6 g/dL (6.3-8.2)
[2021-11-02 20:11] LABS: Partial Thromboplastin Time 21.3 sec (22.0-30.0); Prothrombin Time 10.7 sec (9.0-12.0)
--- NOTE | 2021-11-02 20:35 | ED ---
General Adult HPI - General Chief complaint: Recheck/Abnormal Lab/Rx Stated complaint: abnormal labs Time Seen by Provider: 11/02/21 19:13 Source: patient, EMS, RN notes reviewed, old records reviewed Mode of arrival: EMS Limitations: altered mental status, physical limitation - History of Present Illness Initial comments: This is an 86-year-old female who is [facility] because her hemoglobin was 5.7. It was just a baseline lab work that they did at the facility did not note any symptoms of the patient patient herself is demented but has no complaints denies any pain. There is no history of any shortness of breath or weakness. No report of previous anemia. At this time no family or caregivers with the patient so no further history is available. - Related Data Home Medications Medication Instructions Recorded Confirmed Levothyroxine Sodium [Synthroid] 75 mcg PO DAILY@0600 12/11/18 10/27/21 Metoprolol Tartrate [Lopressor] 25 mg PO BID@0800,1700 05/19/19 10/27/21 Lactulose 10 gm PO DAILY@0800 02/15/21 10/27/21 Umeclidinium Brm/Vilanterol Tr 1 puff INHALATION RT-DAILY@0800 02/15/21 10/27/21 [Anoro Ellipta 62.5-25 Mcg INH] Ipratropium Nebulized [Atrovent 0.5 mg INHALATION RT-QID PRN 03/01/21 10/27/21 Nebulized 0.2 MG/ML] Omeprazole 20 mg PO DAILY@0800 03/01/21 10/27/21 Sertraline [Zoloft] 25 mg PO HS 03/01/21 10/27/21 Albuterol Sulfate [Proair Hfa] 2 puff INHALATION RT-Q4H 04/29/21 10/27/21 Multivitamins, Thera [Multivitamin 1 tab PO DAILY@1200 04/29/21 10/27/21 (formulary)] Nitroglycerin Sl Tabs [Nitrostat] 0.4 mg SL Q5M PRN 04/29/21 10/27/21 Apixaban [Eliquis] 2.5 mg PO BID@0800,1700 06/27/21 10/27/21 Atorvastatin [Lipitor] 40 mg PO HS 06/27/21 10/27/21 Ensure Enlive 237 ml PO TID@0800,1200,1700 06/27/21 10/27/21 Ferrous Sulfate [Iron (65 MG 325 mg PO BID@0800,1700 06/27/21 10/27/21 Elemental)] Isosorbide Mononitrate ER [Imdur] 30 mg PO DAILY@0800 06/27/21 10/27/21 Losartan [Cozaar] 50 mg PO DAILY@0800 06/27/21 10/27/21 Magnesium Hydroxide [Milk of 7,200 mg PO Q48H PRN 06/27/21 10/27/21 Magnesia Concentrate] Na Phos,M-B/Na Phos,Di-Ba [Fleet 133 ml RECTAL DAILY PRN 06/27/21 10/27/21 Adult] bisacodyL [Dulcolax] 10 mg RECTAL DAILY PRN 06/27/21 10/27/21 Potassium Chloride [Potassium 10 meq PO DAILY@1700 10/27/21 10/27/21 Chloride ER] Previous Rx's Medication Instructions Recorded Acetaminophen Tab [Tylenol] 650 mg PO Q6HR PRN tab 02/18/21 Sennosides [Senna] 8.6 mg PO HS PRN #30 tablet 05/02/21 Cefuroxime Axetil [Ceftin] 500 mg PO BID 4 Days #8 tab 10/31/21 Donepezil [Aricept] 5 mg PO HS #30 tab 10/31/21 Allergies Allergy/AdvReac Type Severity Reaction Status Date / Time azithromycin Allergy Unknown Verified 11/02/21 19:17 mussels Allergy Unknown Verified 11/02/21 19:17 codeine AdvReac Nausea & Verified 11/02/21 19:17 Vomiting Sulfa (Sulfonamide AdvReac Nausea & Verified 11/02/21 19:17 Antibiotics) Vomiting Review of Systems ROS Statement: Those systems with pertinent positive or pertinent negative responses have been documented in the HPI. ROS Other: All systems not noted in ROS Statement are negative. 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 hx of constipation History of Any Multi-Drug Resistant Organisms: None Reported Past Surgical History: Adenoidectomy, Back Surgery, Bladder Surgery, Breast Surgery, Hysterectomy, Orthopedic Surgery, Tonsillectomy Additional Past Surgical History / Comment(s): R knee arthroscopic surgery, lumbar laminectomy, R rotator cuff repair, D&C, total hysterectomy, L arm melanoma excised, cystoscopy for instillation to burn bladder holdre d/t bladder cancer, R breast benign bx, bilateral cataract removals, bilateral vein stripping, EGD, colonoscopy Past Anesthesia/Blood Transfusion Reactions: Postoperative Nausea & Vomiting (PONV) Additional Past Anesthesia/Blood Transfusion Reaction / Comment(s): Pt has received blood in past without reaction. Past Psychological History: Anxiety, Depression Smoking Status: Former smoker Past Alcohol Use History: None Reported Past Drug Use History: None Reported - Past Family History Mother Family Medical History: Cancer, Pneumonia, Respiratory Disorder Additional Family Medical History / Comment(s): TB, uterine cancer. Father Family Medical History: No Reported History Additional Family Medical History / Comment(s): Father was healthy. General Exam - General Exam Comments Initial Comments: GENERAL: Patient is well-developed and well-nourished. Patient is nontoxic and well- hydrated and is in no acute distress. ENT: Neck is soft and supple. No significant lymphadenopathy is noted. Oropharynx is clear. Moist mucous membranes. Neck has full range of motion without eliciting any pain. EYES: The sclera were anicteric and conjunctiva is pale. Extraocular movements were intact and pupils were equal round and reactive to light. Eyelids were unremarkable. PULMONARY: Unlabored respirations. Good breath sounds bilaterally. No audible rales rhonchi or wheezing was noted. CARDIOVASCULAR: There is a regular rate and rhythm without any murmurs gallops or rubs. ABDOMEN: Soft and nontender with normal bowel sounds. SKIN: Skin is clear with no lesions or rashes and otherwise unremarkable. NEUROLOGIC: Patient is alert and oriented x3. Cranial nerves II through XII are grossly intact. Motor and sensory are also intact. Normal speech, volume and content. Symmetrical smile. MUSCULOSKELETAL: Normal extremities with adequate strength and full range of motion. LYMPHATICS: No significant lymphadenopathy is noted PSYCHIATRIC: Normal psychiatric evaluation. Limitations: altered mental status, physical limitation Course Vital Signs 11/02/21 19:17 Temperature 98.2 F Pulse Rate 71 Respiratory 16 Rate Blood Pressure 128/60 O2 Sat by Pulse 95 Oximetry Medical Decision Making - Medical Decision Making EKG shows sinus rhythm at 60 bpm MS interval is 127 QRS is 93 QT intervals 436 QTC is 453. EKG shows no ST segment elevation. Patient received one unit of packed red blood cells because of eye is 6.1 hemoglobin Patient's troponin is elevated however because of the patient's anemia and no heparin or aspirin be given. I spoke with Dr. Garcia I admitted the patient wrote admitting orders I consulted cardiology. - Lab Data Result diagrams: 11/02/21 19:27 11/02/21 19:27 Lab Results 11/02/21 11/02/21 11/02/21 Range/Units 19:27 19:27 19:27 WBC 6.6 (3.8-10.6) k/uL RBC 2.05 L (3.80-5.40) m/uL Hgb 6.2 L* D (11.4-16.0) gm/dL Hct 20.1 L (34.0-46.0) % MCV 97.7 (80.0-100.0) fL MCH 30.3 (25.0-35.0) pg MCHC 31.0 (31.0-37.0) g/dL RDW 16.1 H (11.5-15.5) % Plt Count 226 (150-450) k/uL MPV 7.8 Neutrophils % 67 % Lymphocytes % 21 % Monocytes % 6 % Eosinophils % 3 % Basophils % 1 % Neutrophils # 4.4 (1.3-7.7) k/uL Lymphocytes # 1.4 (1.0-4.8) k/uL Monocytes # 0.4 (0-1.0) k/uL Eosinophils # 0.2 (0-0.7) k/uL Basophils # 0.1 (0-0.2) k/uL Hypochromasia Slight Anisocytosis Slight Macrocytosis Slight PT 10.7 (9.0-12.0) sec INR 1.0 (<1.2) APTT 21.3 L (22.0-30.0) sec Sodium 139 (137-145) mmol/L Potassium 2.9 L (3.5-5.1) mmol/L Chloride 110 H (98-107) mmol/L Carbon Dioxide 23 (22-30) mmol/L Anion Gap 6 mmol/L BUN 43 H (7-17) mg/dL Creatinine 0.64 (0.52-1.04) mg/dL Est GFR (CKD-EPI)AfAm >90 (>60 ml/min/1.73 sqM) Est GFR (CKD-EPI)NonAf 81 (>60 ml/min/1.73 sqM) Glucose 100 H (74-99) mg/dL Calcium 8.4 (8.4-10.2) mg/dL Total Bilirubin 0.5 (0.2-1.3) mg/dL AST 87 H (14-36) U/L ALT 62 H (4-34) U/L Alkaline Phosphatase 83 (38-126) U/L Troponin I (0.000-0.034) ng/mL Total Protein 5.6 L (6.3-8.2) g/dL Albumin 3.0 L (3.5-5.0) g/dL Blood Type Blood Type Recheck Bld Type Recheck Status Antibody Screen Crossmatch Spec Expiration Date 11/02/21 11/02/21 Range/Units 19:27 19:50 WBC (3.8-10.6) k/uL RBC (3.80-5.40) m/uL Hgb (11.4-16.0) gm/dL Hct (34.0-46.0) % MCV (80.0-100.0) fL MCH (25.0-35.0) pg MCHC (31.0-37.0) g/dL RDW (11.5-15.5) % Plt Count (150-450) k/uL MPV Neutrophils % % Lymphocytes % % Monocytes % % Eosinophils % % Basophils % % Neutrophils # (1.3-7.7) k/uL Lymphocytes # (1.0-4.8) k/uL Monocytes # (0-1.0) k/uL Eosinophils # (0-0.7) k/uL Basophils # (0-0.2) k/uL Hypochromasia Anisocytosis Macrocytosis PT (9.0-12.0) sec INR (<1.2) APTT (22.0-30.0) sec Sodium (137-145) mmol/L Potassium (3.5-5.1) mmol/L Chloride (98-107) mmol/L Carbon Dioxide (22-30) mmol/L Anion Gap mmol/L BUN (7-17) mg/dL Creatinine (0.52-1.04) mg/dL Est GFR (CKD-EPI)AfAm (>60 ml/min/1.73 sqM) Est GFR (CKD-EPI)NonAf (>60 ml/min/1.73 sqM) Glucose (74-99) mg/dL Calcium (8.4-10.2) mg/dL Total Bilirubin (0.2-1.3) mg/dL AST (14-36) U/L ALT (4-34) U/L Alkaline Phosphatase (38-126) U/L Troponin I 0.466 H* (0.000-0.034) ng/mL Total Protein (6.3-8.2) g/dL Albumin (3.5-5.0) g/dL Blood Type A Positive Blood Type Recheck A Pos Bld Type Recheck Status No Antibody Screen NEGATIVE Crossmatch See Detail Spec Expiration Date 11/05/20212349 Critical Care Time Critical Care Time: Yes Total Critical Care Time: 35 Disposition Clinical Impression: Anemia, Non-STEMI (non-ST elevated myocardial infarction) Disposition: ADMITTED IP TO THIS HOSP Referrals: Ebenezer Caldwell MD [Primary Care Provider] - 1-2 days Time of Disposition: 20:35
[2021-11-02] MEDS ORDERED: POTASSIUM CHLORIDE ER 20 MEQ TAB.ER PO STA (20:36)
[2021-11-03 06:42] LABS: Anisocytosis Slight; Basophils # (A) 0.1 k/uL (0-0.2); Basophils % (A) 1 %; Eosinophils # (A) 0.4 k/uL (0-0.7); Eosinophils % (A) 7 %; HCT 27.1 % (34.0-46.0); Hypochromasia Slight; Lymphocytes # (A) 1.4 k/uL (1.0-4.8); Lymphocytes % (A) 21 %; MCH 29.8 pg (25.0-35.0); MCHC 31.6 g/dL (31.0-37.0); MCV 94.4 fL (80.0-100.0); Mean Platelet Volume 7.7; Monocytes # (A) 0.4 k/uL (0-1.0); Monocytes % (A) 6 %; Neutrophils # (A) 4.2 k/uL (1.3-7.7); Neutrophils % (A) 63 %; Platelet Count 215 k/uL (150-450); RBC 2.86 m/uL (3.80-5.40); RDW 16.3 % (11.5-15.5); WBC 6.7 k/uL (3.8-10.6)
[2021-11-03 06:46] LABS: African American GFR (CKD) >90 (>60 ml/min/1.73 sqM); Anion Gap 4 mmol/L; Blood Urea Nitrogen 33 mg/dL (7-17); Calcium 8.1 mg/dL (8.4-10.2); Carbon Dioxide 25 mmol/L (22-30); Chloride 113 mmol/L (98-107); Glucose 95 mg/dL (74-99); Non-African American GFR(CKD) 82 (>60 ml/min/1.73 sqM); Potassium 3.5 mmol/L (3.5-5.1); Sodium 142 mmol/L (137-145)
[2021-11-03 07:04] LABS: HGB 8.5 gm/dL (11.4-16.0)
[2021-11-03 11:00] LABS: Chol/HDL Ratio 2.92 Ratio; LDL Cholesterol,Calculated 48.1 mg/dL (0.0-131.0)
--- NOTE | 2021-11-03 11:11 | P.CRDCN ---
History of Present Illness History of present illness: HISTORY OF PRESENTING ILLNESS This is a pleasant [id number]-year-old female past medical history significant for paroxysmal atrial fibrillation on anticoagulation on Eliquis, Dementia, History of Brugada syndrome, COPD, hypertension, hyperlipidemia, hypothyroidism, osteoarthritis, bladder cancer status post prior chemo, and former smoker. Patient follows in the office with Dr Danielson. We have been asked to see in consultation for elevated troponins. Patient presents to [facility] emergency department after outpatient labs revealing a hemoglobin of 5.7. She is not entirely sure why she is in the hospital, poor historian. Patient does state that she remembers being told that her oxygen levels were low. She denies any chest pain, shortness of breath, lightheadedness, dizziness, palpitations, syncope or near syncope. She denies any bleeding in her urine or her stool. She denies any symptoms of orthopnea or PND. On admission patient's hemoglobin was found to be 6.3. She received 1 unit of PRBCs. Hemoglobin 8.5. GI has been consulted. She was also found to have a potassium 2.9, it was replaced and repeat 3.5. DIAGNOSTICS EKG reveals sinus rhythm, heart rate 68, nonspecific T-wave abnormalities, LVH. No significant ischemia noted. Echocardiogram 01/2021 revealed normal EF, mild tricuspid regurgitation, mild mitral regurgitation, mild aortic regurgitation, estimated RVSP 39 mmHg Lexiscan stress test 02/2021 revealed difficulty to exclude ischemia at the base of the heart, findings were also felt possibly be more technical. Laboratory reviewed, troponin 0.046, 0.047, 0.049, sodium 142, potassium 3.5, BUN 33, serum creatinine 0.6, WBC 6.7, hemoglobin 8.5, platelets 215 Current home cardiac medications include Eliquis 2.5 mg twice a day, atorvastatin 40 mg nightly, Imdur 30 mg daily, losartan 50 mg daily, Toprol titrate 25 mg twice a day REVIEW OF SYSTEMS At the time of my exam: CONSTITUTIONAL: Denies fever or chills. CARDIOVASCULAR: Denies chest pain, shortness of breath, orthopnea, PND or palpitations. RESPIRATORY: Denies cough. GASTROINTESTINAL: Denies abdominal pain, diarrhea, constipation, nausea or vomiting. MUSCULOSKELETAL: Denies myalgias. NEUROLOGIC: Denies numbness, tingling, headacbe or weakness. ENDOCRINE: Denies fatigue, weight change, polydipsia or polyurina. GENITOURINARY: Denies burning, hematuria or urgency with micturation. HEMATOLOGIC:+ history of anemia . Denies bleeding. PHYSICAL EXAMINATION Blood pressure 169/68, heart rate 72, afebrile, saturations 99% on 2 L nasal cannula CONSTITUTIONAL: No apparent distress. HEENT: Head is normocephalic. Pupils are equal, round. Sclerae anicteric. Mucous membranes of the mouth are moist. No JVD. No carotid bruit. CHEST EXAMINATION: Lungs are clear to auscultation. No chest wall tenderness is noted on palpation or with deep breathing. HEART EXAMINATION: Regular rate and rhythm. S1, S2 heard. No murmurs, gallops or rub. ABDOMEN: Soft, nontender. Positive bowel sounds. EXTREMITIES: 2+ peripheral pulses, no lower extremity edema and no calf tenderness. NEUROLOGIC EXAMINATION: Patient is awake, alert and oriented x 1-2 ASSESSMENT Elevated troponin, trend not consistent with acute coronary syndrome. EKG with no acute ischemic changes. Likely related to patient's anemia and hypoxia Anemia, requiring 1 unit PRBC Hypokalemia, replaced Paroxysmal atrial fibrillation on anticoagulation on Eliquis outpatient Dementia History of Brugada syndrome COPD Hypertension Hyperlipidemia Hypothyroidism Osteoarthritis History of badder cancer status post prior chemo Former smoker PLAN Elevated troponin, trend not consistent with acute coronary syndrome. EKG with no acute ischemic changes. Likely related to patient's anemia and hypoxia. Patient with out chest pain. Eliquis on hold secondary to anemia, restart pending GI clearance Continue home statin, Imdur, losartan, metoprolol tartrate No further inpatient workup from a cardiology perspective. We'll follow the patient has a. Please reach out with any further questions or concerns. Follow up outpatient with Dr. Pal Nurse practitioner note has been reviewed by physician. Signing provider agrees with the documented findings, assessment, and plan of care. Past Medical History Past Medical History: Atrial Fibrillation, Cancer, Heart Failure, COPD, Dementia , GERD/Reflux, Hyperlipidemia, Hypertension, Thyroid Disorder Additional Past Medical History / Comment(s): Brugada syndrome, Afib RVR, bladder CA treated with instillation, melanoma removed under L arm with surgery, past home oxygen use but not currently, hiatal hernia, hypothyroid, arthritis mostly in back, UTIs, allergies, constipation. History of Any Multi-Drug Resistant Organisms: None Reported Past Surgical History: Adenoidectomy, Back Surgery, Bladder Surgery, Breast Surgery, Hysterectomy, Orthopedic Surgery, Tonsillectomy Additional Past Surgical History / Comment(s): R knee arthroscopic surgery, lumbar laminectomy, R rotator cuff repair, D&C, total hysterectomy, L arm melanoma excised, cystoscopy for instillation to burn bladder holder d/t bladder cancer, R breast benign bx, bilateral cataract removals, bilateral vein stripping, EGD, colonoscopy. Past Anesthesia/Blood Transfusion Reactions: Postoperative Nausea & Vomiting (PONV) Additional Past Anesthesia/Blood Transfusion Reaction / Comment(s): Pt has received blood in past without reaction. Past Psychological History: Anxiety, Depression Additional Psychological History / Comment(s): Pt [facility]. Smoking Status: Former smoker Past Alcohol Use History: None Reported Additional Past Alcohol Use History / Comment(s): Pt started smoking in 1956 and quit in 2016. Past Drug Use History: None Reported - Past Family History Mother Family Medical History: Cancer, Pneumonia, Respiratory Disorder Additional Family Medical History / Comment(s): TB, uterine cancer. Father Family Medical History: No Reported History Additional Family Medical History / Comment(s): Father was healthy. Medications and Allergies Home Medications Medication Instructions Recorded Confirmed Type Levothyroxine Sodium [Synthroid] 75 mcg PO DAILY@0600 12/11/18 11/02/21 History Metoprolol Tartrate [Lopressor] 25 mg PO BID@0800,1700 05/19/19 11/02/21 History Lactulose 10 gm PO DAILY@0800 02/15/21 11/02/21 History Umeclidinium Brm/Vilanterol Tr 1 puff INHALATION RT-DAILY@0802/15/21 11/02/21 History [Anoro Ellipta 62.5-25 Mcg INH] Acetaminophen Tab [Tylenol] 650 mg PO Q6HR PRN tab 02/18/21 11/02/21 Rx Ipratropium Nebulized [Atrovent 0.5 mg INHALATION RT-QID PRN 03/01/21 11/02/21 History Nebulized 0.2 MG/ML] Omeprazole 20 mg PO DAILY@0800 03/01/21 11/02/21 History Sertraline [Zoloft] 25 mg PO HS@2100 03/01/21 11/02/21 History Albuterol Sulfate [Proair Hfa] 2 puff INHALATION RT-Q4H 04/29/21 11/02/21 History Multivitamins, Thera [Multivitamin 1 tab PO DAILY@1200 04/29/21 11/02/21 History (formulary)] Nitroglycerin Sl Tabs [Nitrostat] 0.4 mg SL Q5M PRN 04/29/21 11/02/21 History Sennosides [Senna] 8.6 mg PO HS PRN #30 tablet 05/02/21 11/02/21 Rx Apixaban [Eliquis] 2.5 mg PO BID@0800,1700 06/27/21 11/02/21 History Atorvastatin [Lipitor] 40 mg PO HS@209906/27/21 11/02/21 History Ensure Enlive 237 ml PO TID@0800,1200,1700 06/27/21 11/02/21 History Ferrous Sulfate [Iron (65 MG 325 mg PO BID@0800,1700 06/27/21 11/02/21 History Elemental)] Isosorbide Mononitrate ER [Imdur] 30 mg PO DAILY@0800 06/27/21 11/02/21 History Losartan [Cozaar] 50 mg PO DAILY@0800 06/27/21 11/02/21 History Magnesium Hydroxide [Milk of 7,200 mg PO DAILY PRN 06/27/21 11/02/21 History Magnesia Concentrate] Na Phos,M-B/Na Phos,Di-Ba [Fleet 133 ml RECTAL DAILY PRN 06/27/21 11/02/21 History Adult] bisacodyL [Dulcolax] 10 mg RECTAL DAILY PRN 06/27/21 11/02/21 History Potassium Chloride [Potassium 10 meq PO DAILY@169910/27/21 11/02/21 History Chloride ER] Cefuroxime Axetil [Ceftin] 500 mg PO BID@0800,1700 11/02/21 11/02/21 History Donepezil [Aricept] 5 mg PO HS@209911/02/21 11/02/21 History Allergies Allergy/AdvReac Type Severity Reaction Status Date / Time azithromycin Allergy Unknown Verified 11/02/21 22:09 mussels Allergy Unknown Verified 11/02/21 22:09 codeine AdvReac Nausea & Verified 11/02/21 22:09 Vomiting Sulfa (Sulfonamide AdvReac Nausea & Verified 11/02/21 22:09 Antibiotics) Vomiting Physical Exam Vitals: Vital Signs Temp Pulse Pulse Resp BP BP Pulse Ox 11/03/21 04:00 98.1 F 72 18 116/62 96 11/03/21 01:03 98.4 F 64 16 156/68 97 11/03/21 00:00 98.2 F 68 18 153/66 100 11/02/21 22:27 98.5 F 78 16 157/83 11/02/21 21:57 98.3 F 71 16 153/70 11/02/21 21:47 98.6 F 67 18 146/65 11/02/21 19:17 98.2 F 71 16 128/60 95 Intake and Output 11/02/21 11/03/21 11/03/21 22:59 06:59 14:59 Intake Total 0 320 Output Total 250 Balance 0 70 Intake: IV 10 Invasive Line 1 10 Blood Product 0 310 Rc As-1 Unit 0 310 [id number] Output: Urine 250 Other: Voiding Method Indwelling Catheter Weight 54.431 kg 54.431 kg Results 11/03/21 04:20 11/03/21 04:20 Cardiac Enzymes 11/02/21 11/02/21 11/03/21 Range/Units 19:27 19:27 00:02 AST 87 H (14-36) U/L Troponin I 0.466 H* 0.471 H* (0.000-0.034) ng/mL 11/03/21 Range/Units 04:20 AST (14-36) U/L Troponin I 0.497 H* (0.000-0.034) ng/mL Coagulation 11/02/21 Range/Units 19:27 PT 10.7 (9.0-12.0) sec APTT 21.3 L (22.0-30.0) sec CBC 11/02/21 11/03/21 Range/Units 19:27 04:20 WBC 6.6 6.7 (3.8-10.6) k/uL RBC 2.05 L 2.86 L (3.80-5.40) m/uL Hgb 6.2 L* D 8.5 L D (11.4-16.0) gm/dL Hct 20.1 L 27.1 L (34.0-46.0) % Plt Count 226 215 (150-450) k/uL Comprehensive Metabolic Panel 11/02/21 11/03/21 Range/Units 19:27 04:20 Sodium 139 142 (137-145) mmol/L Potassium 2.9 L 3.5 (3.5-5.1) mmol/L Chloride 110 H 113 H (98-107) mmol/L Carbon Dioxide 23 25 (22-30) mmol/L BUN 43 H 33 H (7-17) mg/dL Creatinine 0.64 0.61 (0.52-1.04) mg/dL Glucose 100 H 95 (74-99) mg/dL Calcium 8.4 8.1 L (8.4-10.2) mg/dL AST 87 H (14-36) U/L ALT 62 H (4-34) U/L Alkaline Phosphatase 83 (38-126) U/L Total Protein 5.6 L (6.3-8.2) g/dL Albumin 3.0 L (3.5-5.0) g/dL Intake and Output 11/02/21 11/03/21 11/03/21 22:59 06:59 14:59 Intake Total 0 320 Output Total 250 Balance 0 70 Intake: IV 10 Invasive Line 1 10 Blood Product 0 310 Rc As-1 Unit 0 310 [id number] Output: Urine 250 Other: Voiding Method Indwelling Catheter Weight 54.431 kg 54.431 kg 11/03/21 04:20 11/03/21 04:20
--- NOTE | 2021-11-03 11:56 | P.CONS ---
History of Present Illness - Reason for Consult Consult date: 11/03/21 Anemia, possible GI bleed Requesting physician: Manish Garcia - Chief Complaint Low hemoglobin - History of Present Illness This is a pleasantly confused 86-year-old female with a past medical history of atrial fibrillation on Eliquis last dose on 11/02/2021, Brugada syndrome, GERD, heart failure, hyperlipidemia, hypertension, thyroid disorder, and bladder cancer who presented to the emergency department from extended care facility for abnormal hemoglobin on routine labs. Patient seems to answer questions appropriately but does still seem somewhat confused. States she has no abdominal pain, no nausea or vomiting. Questionable dark stools. Denies any bright red bleeding. On admission she was noted to have a hemoglobin of 6.2 and was given 1 unit of blood with a repeat hemoglobin today of 8.5. She did have elevated BUN as well. Gastroenterology was consulted for anemia, possible GI bleed. She does have a history of anemia and had a workup and February [address] garcia. She underwent an EGD and colonoscopy on 03/11/2021. 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 Colonoscopy reported poor prep in some areas however there is no colorectal neoplasia, small internal hemorrhoids. Review of Systems REVIEW OF SYSTEMS: CARDIOPULMONARY: No chest pain or shortness of breath. Gastrointestinal: Denies abdominal pain. No nausea or vomiting. No hematemesis, coffee-ground emesis. No rectal bleeding, or melena. GENITOURINARY: No dysuria or hematuria. MUSCULOSKELETAL: Reports normal range of motion., Joint pain. SKIN: No rashes. No jaundice. ENDOCRINE: No chills, fevers. No excessive weight gain or loss. No polydipsia or polyuria. PSYCHIATRIC: Unremarkable. NEUROLOGY: The patient pleasantly confused, history of dementia. Denies dizziness, headache. ENT: Vision unremarkable. CONSTITUTIONAL: No recent weight loss. No fever, chills, night sweats. 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 History of Any Multi-Drug Resistant Organisms: None Reported Past Surgical History: Adenoidectomy, Back Surgery, Bladder Surgery, Breast Surgery, Hysterectomy, Orthopedic Surgery, Tonsillectomy Additional Past Surgical History / Comment(s): R knee arthroscopic surgery, lumbar laminectomy, R rotator cuff repair, D&C, total hysterectomy, L arm melanoma excised, cystoscopy for instillation to burn bladder holder d/t bladder cancer, R breast benign bx, bilateral cataract removals, bilateral vein stripping, EGD, colonoscopy. Past Anesthesia/Blood Transfusion Reactions: Postoperative Nausea & Vomiting (PONV) Additional Past Anesthesia/Blood Transfusion Reaction / Comm: Pt has received blood in past without reaction. Past Psychological History: Anxiety, Depression Additional Psychological History / Comment(s): Pt lives at [facility] in [facility]. Smoking Status: Former smoker Past Alcohol Use History: None Reported Additional Past Alcohol Use History / Comment(s): Pt started smoking in 1956 and quit in 2016. Past Drug Use History: None Reported - Past Family History Mother Family Medical History: Cancer, Pneumonia, Respiratory Disorder Additional Family Medical History / Comment(s): TB, uterine cancer. Father Family Medical History: No Reported History Additional Family Medical History / Comment(s): Father was healthy. Medications and Allergies Home Medications Medication Instructions Recorded Confirmed Type Levothyroxine Sodium [Synthroid] 75 mcg PO DAILY@0600 12/11/18 11/02/21 History Metoprolol Tartrate [Lopressor] 25 mg PO BID@0800,1700 05/19/19 11/02/21 History Lactulose 10 gm PO DAILY@0800 02/15/21 11/02/21 History Umeclidinium Brm/Vilanterol Tr 1 puff INHALATION RT-DAILY@0802/15/21 11/02/21 History [Anoro Ellipta 62.5-25 Mcg INH] Acetaminophen Tab [Tylenol] 650 mg PO Q6HR PRN tab 02/18/21 11/02/21 Rx Ipratropium Nebulized [Atrovent 0.5 mg INHALATION RT-QID PRN 03/01/21 11/02/21 History Nebulized 0.2 MG/ML] Omeprazole 20 mg PO DAILY@0800 03/01/21 11/02/21 History Sertraline [Zoloft] 25 mg PO HS@2100 03/01/21 11/02/21 History Albuterol Sulfate [Proair Hfa] 2 puff INHALATION RT-Q4H 04/29/21 11/02/21 Histo ry Multivitamins, Thera [Multivitamin 1 tab PO DAILY@1200 04/29/21 11/02/21 History (formulary)] Nitroglycerin Sl Tabs [Nitrostat] 0.4 mg SL Q5M PRN 04/29/21 11/02/21 History Sennosides [Senna] 8.6 mg PO HS PRN #30 tablet 05/02/21 11/02/21 Rx Apixaban [Eliquis] 2.5 mg PO BID@0800,1700 06/27/21 11/02/21 History Atorvastatin [Lipitor] 40 mg PO HS@209906/27/21 11/02/21 History Ensure Enlive 237 ml PO TID@0800,1200,1700 06/27/21 11/02/21 History Ferrous Sulfate [Iron (65 MG 325 mg PO BID@0800,1700 06/27/21 11/02/21 History Elemental)] Isosorbide Mononitrate ER [Imdur] 30 mg PO DAILY@0800 06/27/21 11/02/21 History Losartan [Cozaar] 50 mg PO DAILY@0800 06/27/21 11/02/21 History Magnesium Hydroxide [Milk of 7,200 mg PO DAILY PRN 06/27/21 11/02/21 History Magnesia Concentrate] Na Phos,M-B/Na Phos,Di-Ba [Fleet 133 ml RECTAL DAILY PRN 06/27/21 11/02/21 History Adult] bisacodyL [Dulcolax] 10 mg RECTAL DAILY PRN 06/27/21 11/02/21 History Potassium Chloride [Potassium 10 meq PO DAILY@169910/27/21 11/02/21 History Chloride ER] Cefuroxime Axetil [Ceftin] 500 mg PO BID@0800,1700 11/02/21 11/02/21 History Donepezil [Aricept] 5 mg PO HS@209911/02/21 11/02/21 History Allergies Allergy/AdvReac Type Severity Reaction Status Date / Time azithromycin Allergy Unknown Verified 11/02/21 22:09 mussels Allergy Unknown Verified 11/02/21 22:09 codeine AdvReac Nausea & Verified 11/02/21 22:09 Vomiting Sulfa (Sulfonamide AdvReac Nausea & Verified 11/02/21 22:09 Antibiotics) Vomiting Physical Exam Vitals: Vital Signs Temp Pulse Pulse Resp BP BP Pulse Ox 11/03/21 04:00 98.1 F 72 18 116/62 96 11/03/21 01:03 98.4 F 64 16 156/68 97 11/03/21 00:00 98.2 F 68 18 153/66 100 11/02/21 22:27 98.5 F 78 16 157/83 11/02/21 21:57 98.3 F 71 16 153/70 11/02/21 21:47 98.6 F 67 18 146/65 11/02/21 19:17 98.2 F 71 16 128/60 95 Intake and Output 11/02/21 11/03/21 11/03/21 22:59 06:59 14:59 Intake Total 0 320 Output Total 250 300 Balance 0 70 -300 Intake: IV 10 Invasive Line 1 10 Blood Product 0 310 Rc As-1 Unit 0 310 [id number] Output: Urine 250 300 Other: Voiding Method Indwelling Catheter Weight 54.431 kg 54.431 kg General appearance: The patient is alert, oriented, appears in no acute distress. HET: Head is normocephalic and atraumatic. Conjunctiva pink. Sclera anicteric. Neck: Supple without lymphadenopathy. Trachea midline. Heart: S1 S2. Regular rate and rhythm. Lungs: Clear to auscultation. Abdomen: Soft, nontender, nondistended with bowel sounds. No guarding or rigidity. Skin: No rashes. No jaundice. Extremities: Normal skin color and turgor. No pedal edema. Neurological: No focal deficits. Alert and oriented x3. Results CBC & Chem 7: 11/03/21 04:20 11/03/21 04:20 Labs: Abnormal Lab Results - Last 24 Hours (Table) 11/02/21 11/02/21 11/02/21 Range/Units 19:27 19:27 19:27 RBC 2.05 L (3.80-5.40) m/uL Hgb 6.2 L* D (11.4-16.0) gm/dL Hct 20.1 L (34.0-46.0) % RDW 16.1 H (11.5-15.5) % APTT 21.3 L (22.0-30.0) sec Potassium 2.9 L (3.5-5.1) mmol/L Chloride 110 H (98-107) mmol/L BUN 43 H (7-17) mg/dL Glucose 100 H (74-99) mg/dL Calcium (8.4-10.2) mg/dL AST 87 H (14-36) U/L ALT 62 H (4-34) U/L Troponin I (0.000-0.034) ng/mL Total Protein 5.6 L (6.3-8.2) g/dL Albumin 3.0 L (3.5-5.0) g/dL Crossmatch 11/02/21 11/02/21 11/03/21 Range/Units 19:27 19:50 00:02 RBC (3.80-5.40) m/uL Hgb (11.4-16.0) gm/dL Hct (34.0-46.0) % RDW (11.5-15.5) % APTT (22.0-30.0) sec Potassium (3.5-5.1) mmol/L Chloride (98-107) mmol/L BUN (7-17) mg/dL Glucose (74-99) mg/dL Calcium (8.4-10.2) mg/dL AST (14-36) U/L ALT (4-34) U/L Troponin I 0.466 H* 0.471 H* (0.000-0.034) ng/mL Total Protein (6.3-8.2) g/dL Albumin (3.5-5.0) g/dL Crossmatch See Detail 11/03/21 11/03/21 11/03/21 Range/Units 04:20 04:20 04:20 RBC 2.86 L (3.80-5.40) m/uL Hgb 8.5 L D (11.4-16.0) gm/dL Hct 27.1 L (34.0-46.0) % RDW 16.3 H (11.5-15.5) % APTT (22.0-30.0) sec Potassium (3.5-5.1) mmol/L Chloride 113 H (98-107) mmol/L BUN 33 H (7-17) mg/dL Glucose (74-99) mg/dL Calcium 8.1 L (8.4-10.2) mg/dL AST (14-36) U/L ALT (4-34) U/L Troponin I 0.497 H* (0.000-0.034) ng/mL Total Protein (6.3-8.2) g/dL Albumin (3.5-5.0) g/dL Crossmatch Assessment and Plan (1) Anemia Narrative/Plan: 86-year-old female who presented for abnormal low hemoglobin during routine labs. Admitting hemoglobin 6.2 was given 1 unit PRBC transfusion with the improvement to a 0.5. She does have a history of atrial fibrillation on eliquis. She has a previous history of anemia with questionable GI bleed and underwent endoscopic evaluation in February [address] Sams. Her colonoscopy did have areas of poor prep however no bleeding noted and no colorectal neoplasia. EGD however did show a nonbleeding duodenal AVM status post cautery. Possible etiology for anemia could be related to acute blood loss from AVM. With patient's history would recommend proceeding with the EGD tomorrow. Current Visit: Yes Status: Acute Code(s): D64.9 - ANEMIA, UNSPECIFIED SNOMED Code(s): 981558884 (2) Atrial fibrillation Current Visit: No Status: Acute Code(s): I48.91 - UNSPECIFIED ATRIAL FIBRILLATION SNOMED Code(s): 31067777 (3) Elevated troponin Narrative/Plan: Cardiology following, elevated troponin and not consistent with acute coronary syndrome. Patient is cleared for upper endoscopy. Current Visit: No Status: Acute Code(s): R74.8 - ABNORMAL LEVELS OF OTHER SERUM ENZYMES SNOMED Code(s): 902742634 Plan: 1. Continue symptomatic and supportive care 2. Heart healthy diet, nothing by mouth after midnight 3. Protonix 40 mg daily 4. Daily CBC, transfuse for hemoglobin less than 7 5. Will proceed with EGD tomorrow. Procedure discussed with patient in detail including risks and benefits. Please obtain consent from appropriate guardian. Thank you for this consultation, we will continue to follow. Dr. Keyon Sams I agree with the dictator's note, documented as a scribe by Claire Hathaway.
[2021-11-03] MEDS: PANTOPRAZOLE 40 MG/10 ML VIAL IVP SCH ×2 (12:46→20:18)
[2021-11-03] MEDS ORDERED: ACETAMINOPHEN TAB 325 MG TAB PO PRN (14:28)
[2021-11-03] MEDS ORDERED: IPRATROPIUM 0.5 MG/2.5 ML NEBU INHALATION PRN (14:28)
[2021-11-03] MEDS ORDERED: NITROGLYCERIN SL TABS 0.4 MG TAB SUBLINGUAL PRN (14:28)
--- NOTE | 2021-11-03 15:43 | P.HPIM ---
History of Present Illness H&P Date: 11/03/21 Chief Complaint: Low hemoglobin level Patient is a 86-year-old female with a known history of paroxysmal atrial fibrillation on anticoagulation with Eliquis, Brugada syndrome, history of bladder cancer treated with instillation, COPD, hypertension, hyperlipidemia, hypothyroidism was sent to ER due to low hemoglobin level at 5.7 when checked at extended-care facility. Patient was recently was admitted to the hospital due to altered mental status and fall in the bathroom. She was treated for acute E. coli urinary tract infection and urinary retention status post Ruffin catheter placement. Patient also had T12 compression fracture and back brace was recommended by orthopedic surgery. Patient was discharged to extended-care facility with improvement in pain and continuation of antibiotics. Patient otherwise denied any complaints of nausea vomiting or diarrhea. Denied any dark-colored stools denied blood in the stool. 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 Colonoscopy showed poor prep however no colorectal neoplasia noted. Small internal hemorrhoids. Patient has been afebrile. No cough or sputum production. No fever no chills. Laboratory data showed WBC 6.6 hemoglobin 6.2 platelets 226 and RDW 16.1 MCV 97.7 Sodium 139 potassium 2.9 chloride 110 bicarb is 23, BUN 43 and creatinine 0.64 Troponin 0.466, 0.477 and 0.497 albumin 3.0 Review of Systems Constitutional: Patient denies any fever or chills . No generalized weakness or weight loss. Abdomen: Patient denied nausea vomiting and diarrhea and abdominal pain. Cardiovascular: Patient denies any chest pain or short of breath no palpitations. Respiratory: patient denied any cough is from production. No shortness of breath Neurologic: Patient denied any numbness or tingling headache. Musculoskeletal: Patient denies any complaints of joint swelling or deformity. Skin: Negative Psychiatric: Negative Endocrine: No heat or cold intolerance. No recent weight gain. Genitourinary: No dysuria or hematuria. 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 History of Any Multi-Drug Resistant Organisms: None Reported Past Surgical History: Adenoidectomy, Back Surgery, Bladder Surgery, Breast Surgery, Hysterectomy, Orthopedic Surgery, Tonsillectomy Additional Past Surgical History / Comment(s): R knee arthroscopic surgery, lumbar laminectomy, R rotator cuff repair, D&C, total hysterectomy, L arm melanoma excised, cystoscopy for instillation to burn bladder holder d/t bladder cancer, R breast benign bx, bilateral cataract removals, bilateral vein stripping, EGD, colonoscopy. Past Anesthesia/Blood Transfusion Reactions: Postoperative Nausea & Vomiting (PONV) Additional Past Anesthesia/Blood Transfusion Reaction / Comment(s): Pt has received blood in past without reaction. Past Psychological History: Anxiety, Depression Additional Psychological History / Comment(s): Pt lives at [facility] in [facility]. Smoking Status: Former smoker Past Alcohol Use History: None Reported Additional Past Alcohol Use History / Comment(s): Pt started smoking in 1956 and quit in 2016. Past Drug Use History: None Reported - Past Family History Mother Family Medical History: Cancer, Pneumonia, Respiratory Disorder Additional Family Medical History / Comment(s): TB, uterine cancer. Father Family Medical History: No Reported History Additional Family Medical History / Comment(s): Father was healthy. Medications and Allergies Home Medications Medication Instructions Recorded Confirmed Type Levothyroxine Sodium [Synthroid] 75 mcg PO DAILY@0600 12/11/18 11/02/21 History Metoprolol Tartrate [Lopressor] 25 mg PO BID@0800,1700 05/19/19 11/02/21 History Lactulose 10 gm PO DAILY@0800 02/15/21 11/02/21 History Umeclidinium Brm/Vilanterol Tr 1 puff INHALATION RT-DAILY@79902/15/21 11/02/21 History [Anoro Ellipta 62.5-25 Mcg INH] Acetaminophen Tab [Tylenol] 650 mg PO Q6HR PRN tab 02/18/21 11/02/21 Rx Ipratropium Nebulized [Atrovent 0.5 mg INHALATION RT-QID PRN 03/01/21 11/02/21 History Nebulized 0.2 MG/ML] Omeprazole 20 mg PO DAILY@0800 03/01/21 11/02/21 History Sertraline [Zoloft] 25 mg PO HS@209903/01/21 11/02/21 History Albuterol Sulfate [Proair Hfa] 2 puff INHALATION RT-Q4H 04/29/21 11/02/21 History Multivitamins, Thera [Multivitamin 1 tab PO DAILY@1200 04/29/21 11/02/21 History (formulary)] Nitroglycerin Sl Tabs [Nitrostat] 0.4 mg SL Q5M PRN 04/29/21 11/02/21 History Sennosides [Senna] 8.6 mg PO HS PRN #30 tablet 05/02/21 11/02/21 Rx Apixaban [Eliquis] 2.5 mg PO BID@0800,1700 06/27/21 11/02/21 History Atorvastatin [Lipitor] 40 mg PO HS@209906/27/21 11/02/21 History Ensure Enlive 237 ml PO TID@0800,1200,169906/27/21 11/02/21 History Ferrous Sulfate [Iron (65 MG 325 mg PO BID@0800,0 06/27/21 11/02/21 History Elemental)] Isosorbide Mononitrate ER [Imdur] 30 mg PO DAILY@0800 06/27/21 11/02/21 History Losartan [Cozaar] 50 mg PO DAILY@0800 06/27/21 11/02/21 History Magnesium Hydroxide [Milk of 7,200 mg PO DAILY PRN 06/27/21 11/02/21 History Magnesia Concentrate] Na Phos,M-B/Na Phos,Di-Ba [Fleet 133 ml RECTAL DAILY PRN 06/27/21 11/02/21 History Adult] bisacodyL [Dulcolax] 10 mg RECTAL DAILY PRN 06/27/21 11/02/21 History Potassium Chloride [Potassium 10 meq PO DAILY@169910/27/21 11/02/21 History Chloride ER] Cefuroxime Axetil [Ceftin] 500 mg PO BID@0800,1700 11/02/21 11/02/21 History Donepezil [Aricept] 5 mg PO HS@2100 11/02/21 11/02/21 History Allergies Allergy/AdvReac Type Severity Reaction Status Date / Time azithromycin Allergy Unknown Verified 11/02/21 22:09 mussels Allergy Unknown Verified 11/02/21 22:09 codeine AdvReac Nausea & Verified 11/02/21 22:09 Vomiting Sulfa (Sulfonamide AdvReac Nausea & Verified 11/02/21 22:09 Antibiotics) Vomiting Physical Exam Vitals: Vital Signs Temp Pulse Pulse Resp BP BP Pulse Ox 11/03/21 12:54 97 11/03/21 12:00 76 18 143/76 98 11/03/21 08:00 98.4 F 72 18 169/68 99 11/03/21 04:00 98.1 F 72 18 116/62 96 11/03/21 01:03 98.4 F 64 16 156/68 97 11/03/21 00:00 98.2 F 68 18 153/66 100 11/02/21 22:27 98.5 F 78 16 157/83 11/02/21 21:57 98.3 F 71 16 153/70 11/02/21 21:47 98.6 F 67 18 146/65 11/02/21 19:17 98.2 F 71 16 128/60 95 Intake and Output 11/02/21 11/03/21 11/03/21 22:59 06:59 14:59 Intake Total 0 320 10 Output Total 250 300 Balance 0 70 -290 Intake: IV 10 10 Invasive Line 1 10 10 Blood Product 0 310 Rc As-1 Unit 0 310 [id number] Output: Urine 250 300 Other: Voiding Method Indwelling Catheter Indwelling Catheter Weight 54.431 kg 54.431 kg PHYSICAL EXAMINATION: Patient is lying in the bed comfortably, no acute distress, awake alert and oriented. Minimal confusion.. HEENT: Normocephalic. Neck is supple. Pupils reactive. Nostrils clear. Oral cavity is moist. Neck reveals no JVD, carotid bruits, or thyromegaly. CHEST EXAMINATION: Trachea is central. Symmetrical expansion. Lung baca clear to auscultation and percussion. CARDIAC: Normal S1, S2 with no gallops. No murmurs ABDOMEN: Soft. Bowel sounds normal. No organomegaly. No abdominal bruits. Extremities: reveal no edema. No clubbing or cyanosis Neurologically awake, alert, oriented x2-3 with well-coordinated movements. No focal deficits noted Skin: No rash or skin lesions. Psychiatric: Coperative. Musculoskeletal: No joint swelling or deformity. Normal range of motion. Results CBC & Chem 7: 11/03/21 04:20 11/03/21 04:20 Labs: Abnormal Lab Results - Last 24 Hours (Table) 11/02/21 11/02/21 11/02/21 Range/Units 19:27 19:27 19:27 RBC 2.05 L (3.80-5.40) m/uL Hgb 6.2 L* D (11.4-16.0) gm/dL Hct 20.1 L (34.0-46.0) % RDW 16.1 H (11.5-15.5) % APTT 21.3 L (22.0-30.0) sec Potassium 2.9 L (3.5-5.1) mmol/L Chloride 110 H (98-107) mmol/L BUN 43 H (7-17) mg/dL Glucose 100 H (74-99) mg/dL Calcium (8.4-10.2) mg/dL AST 87 H (14-36) U/L ALT 62 H (4-34) U/L Troponin I (0.000-0.034) ng/mL Total Protein 5.6 L (6.3-8.2) g/dL Albumin 3.0 L (3.5-5.0) g/dL HDL Cholesterol (40.00-60.00) mg/dL Crossmatch 11/02/21 11/02/21 11/03/21 Range/Units 19:27 19:50 00:02 RBC (3.80-5.40) m/uL Hgb (11.4-16.0) gm/dL Hct (34.0-46.0) % RDW (11.5-15.5) % APTT (22.0-30.0) sec Potassium (3.5-5.1) mmol/L Chloride (98-107) mmol/L BUN (7-17) mg/dL Glucose (74-99) mg/dL Calcium (8.4-10.2) mg/dL AST (14-36) U/L ALT (4-34) U/L Troponin I 0.466 H* 0.471 H* (0.000-0.034) ng/mL Total Protein (6.3-8.2) g/dL Albumin (3.5-5.0) g/dL HDL Cholesterol (40.00-60.00) mg/dL Crossmatch See Detail 11/03/21 11/03/21 11/03/21 Range/Units 04:20 04:20 04:20 RBC 2.86 L (3.80-5.40) m/uL Hgb 8.5 L D (11.4-16.0) gm/dL Hct 27.1 L (34.0-46.0) % RDW 16.3 H (11.5-15.5) % APTT (22.0-30.0) sec Potassium (3.5-5.1) mmol/L Chloride 113 H (98-107) mmol/L BUN 33 H (7-17) mg/dL Glucose (74-99) mg/dL Calcium 8.1 L (8.4-10.2) mg/dL AST (14-36) U/L ALT (4-34) U/L Troponin I 0.497 H* (0.000-0.034) ng/mL Total Protein (6.3-8.2) g/dL Albumin (3.5-5.0) g/dL HDL Cholesterol 35.90 L (40.00-60.00) mg/dL Crossmatch Thrombosis Risk Factor Assmnt - DVT/VTE Prophylaxis DVT/VTE Prophylaxis: Mechanical Prophylaxis ordered - Choose All That Apply Any of the Below Risk Factors Present?: Yes Each Factor Represents 1 point: Abnormal pulmonary function (COPD) Other Risk Factors: Yes Each Risk Factor Represents 3 Points: Age 75 years or older Other congenital or acquired thrombophilia - If yes, enter type in comment: No Thrombosis Risk Factor Assessment Total Risk Factor Score: 4 Thrombosis Risk Factor Assessment Level: Moderate Risk Assessment and Plan Assessment: Acute blood loss anemia likely secondary to GI bleed Acute GI bleed with history of duodenal AVM Mildly elevated troponin level likely demand ischemia due to low hemoglobin Paroxysmal atrial fibrillation on anticoagulation with Eliquis currently on hold History of Brugada syndrome Recent admission due to E. coli urinary tract infection, fall and T12 compression fractures and altered mental status. Moderate to severe protein calorie malnutrition Chronic back pain status post lumbar laminectomy COPD not in exacerbation Hypertension Hyperlipidemia GERD, hiatal hernia Hypothyroidism History of bladder cancer status post surgery DVT prophylaxis with SCDs Plan: Patient will be continued on gentle IV hydration and monitor CBC. Transfuse if less than 7. Eliquis is on hold. Cardiology and GI is on board. Plan for EGD tomorrow. Continue to follow closely. Continue with telemetry monitoring. Continue with pain management. Prognosis is guarded. Time with Patient: Greater than 30
[2021-11-03] MEDS: ALBUTEROL NEBULIZED 2.5 MG/3 ML INHALATION SCH ×2 (16:35→20:59)
[2021-11-03] MEDS ORDERED: NON FORMULARY DRUG (Ensure Enlive 237 ML) PO SCH (17:00)
[2021-11-03] MEDS: POTASSIUM CHLORIDE ER 10 MEQ TAB.ER.PRT PO SCH (17:19)
[2021-11-03] MEDS: METOPROLOL TARTRATE 25 MG TAB PO SCH (17:19)
[2021-11-03] MEDS: ATORVASTATIN 40 MG TAB PO SCH (20:18)
[2021-11-03] MEDS: SERTRALINE 25 MG TAB PO SCH (20:18)
[2021-11-03] MEDS: DONEPEZIL 5 MG TAB PO SCH (20:18)
[2021-11-04] MEDS: ALBUTEROL NEBULIZED 2.5 MG/3 ML INHALATION SCH ×7 (00:05→23:42)
[2021-11-04] MEDS: FORMOTEROL FUMARATE 20 MCG/2 ML NEBU INHALATION SCH ×2 (07:00→19:37)
[2021-11-04] MEDS: IPRATROPIUM 0.5 MG/2.5 ML NEBU INHALATION SCH ×4 (07:00→19:37)
[2021-11-04 08:29] LABS: African American GFR (CKD) >90 (>60 ml/min/1.73 sqM); Anion Gap 8 mmol/L; Blood Urea Nitrogen 18 mg/dL (7-17); Calcium 8.4 mg/dL (8.4-10.2); Carbon Dioxide 24 mmol/L (22-30); Chloride 108 mmol/L (98-107); Glucose 97 mg/dL (74-99); Non-African American GFR(CKD) 87 (>60 ml/min/1.73 sqM); Potassium 3.4 mmol/L (3.5-5.1); Sodium 140 mmol/L (137-145)
[2021-11-04 08:39] LABS: Anisocytosis Slight; HCT 31.7 % (34.0-46.0); HGB 9.5 gm/dL (11.4-16.0); Hypochromasia Moderate; MCH 29.3 pg (25.0-35.0); MCV 97.8 fL (80.0-100.0); Macrocytosis Slight; Mean Platelet Volume 7.6; Platelet Count 269 k/uL (150-450); RBC 3.25 m/uL (3.80-5.40); RDW 17.4 % (11.5-15.5); WBC 7.1 k/uL (3.8-10.6)
[2021-11-04] MEDS: PANTOPRAZOLE 40 MG/10 ML VIAL IVP SCH ×2 (09:42→21:07)
[2021-11-04] MEDS: METOPROLOL TARTRATE 25 MG TAB PO SCH ×2 (09:43→17:03)
[2021-11-04] MEDS: LOSARTAN 50 MG TAB PO SCH (09:43)
[2021-11-04] MEDS: LEVOTHYROXINE 75 MCG TAB PO SCH (09:43)
[2021-11-04] MEDS: SODIUM CHLORIDE 0.9% 1,000 ML IV SCH ×2 (09:43→21:07)
[2021-11-04] MEDS: ISOSORBIDE MONONITRATE ER 30 MG TAB.ER.24H PO SCH (09:43)
[2021-11-04] MEDS: MULTIVITAMINS, THERA 1 EACH TAB PO SCH (09:43)
[2021-11-04] MEDS ORDERED: PROPOFOL 10 MG/ML 20 ML VIAL IV ONE (14:20)
[2021-11-04] MEDS ORDERED: SODIUM CHLORIDE 0.9% 1,000 ML IV ONE ×2 (14:22)
--- NOTE | 2021-11-04 14:50 | P.PCN ---
Date of Procedure: 11/04/21 Procedure(s) Performed: BRIEF HISTORY: Patient is a 86-year-old, pleasant, white female scheduled for an upper endoscopy as a part of evaluation of severe symptomatic anemia and questionable black tarry stools. She presents to the hospital with a hemoglobin of 6 g/dL requiring 1 unit of PRBC transfusion. She did have an EGD and colonoscopy done in February 2021 and was noted to have duodenal millimeters malformation that was cauterized. Because of anemia and possible black stools she scheduled for an upper endoscopy to evaluate further.. PROCEDURE PERFORMED: Esophagogastroduodenoscopy with cautery using gold probe. PREOPERATIVE DIAGNOSIS: Anemia and GI bleed. IV sedation per anesthesia. PROCEDURE: After informed consent was obtained, the patient was brought into the endoscopy unit. IV sedation was administered by Anesthesia under continuous monitoring. Initially the Olympus GIF-140 video endoscope was inserted into the mouth. Esophagus intubated without any difficulty. It was gradually advanced into the stomach and duodenum and carefully examined. The second part of the duodenum appeared normal. In the bulb of the duodenum along the duodenal sweep there was a 5 mm arteriovenous malformation with oozing identified. This was cauterized using a gold probe. The scope at this time was withdrawn to the stomach, adequately insufflated with air, and upon careful examination, mucosa of the antrum, body, cardia and the fundus appeared normal. The scope was then withdrawn into the esophagus. The GE junction was located at 39 cm from the incisors. Small hiatal hernia noted. The esophagus appeared normal. There were no erosions or ulcerations seen and the patient tolerated the procedure well. IMPRESSION: 1. 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 2. Small hiatal hernia. RECOMMENDATIONS: The findings of this examination were discussed with the patient. Diet will be advanced as tolerated. Monitor CBC closely.. Hold anticoagulation for 2 more days
[2021-11-04] MEDS: POTASSIUM CHLORIDE ER 10 MEQ TAB.ER.PRT PO SCH (17:03)
--- NOTE | 2021-11-04 17:31 | P.PN ---
Subjective Progress Note Date: 11/04/21 86-year-old female with a known history of paroxysmal atrial fibrillation on anticoagulation with Eliquis, Brugada syndrome, history of bladder cancer treated with instillation, COPD, hypertension, hyperlipidemia, hypothyroidism was sent to ER due to low hemoglobin level at 5.7 when checked at extended-care facility. Patient was recently was admitted to the hospital due to altered mental status and fall in the bathroom. She was treated for acute E. coli urinary tract infection and urinary retention status post Ruffin catheter placement. Patient also had T12 compression fracture and back brace was recommended by orthopedic surgery. Patient was discharged to extended-care facility with improvement in pain and continuation of antibiotics. Patient otherwise denied any complaints of nausea vomiting or diarrhea. Denied any dark-colored stools denied blood in the stool. 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 Colonoscopy showed poor prep however no colorectal neoplasia noted. Small internal hemorrhoids. Patient has been afebrile. No cough or sputum production. No fever no chills. Laboratory data showed WBC 6.6 hemoglobin 6.2 platelets 226 and RDW 16.1 MCV 97.7 Sodium 139 potassium 2.9 chloride 110 bicarb is 23, BUN 43 and creatinine 0.64 Troponin 0.466, 0.477 and 0.497 albumin 3.0 Objective - Vital Signs Vital signs: Vital Signs Temp 98.4 F 11/04/21 09:00 Pulse 79 11/04/21 09:00 Resp 16 11/04/21 09:00 BP 153/62 11/04/21 09:00 Pulse Ox 96 11/04/21 09:00 FiO2 28 11/04/21 00:05 Intake & Output 11/03/21 11/04/21 11/04/21 18:59 06:59 18:59 Intake Total 260 Output Total 650 350 Balance -390 -350 Intake: IV 20 Invasive Line 1 20 Oral 240 Output: Urine 650 350 Other: Voiding Method Indwelling Catheter Indwelling Catheter - Exam Patient is lying in the bed comfortably, no acute distress, awake alert and oriented. Minimal confusion.. HEENT: Normocephalic. Neck is supple. Pupils reactive. Nostrils clear. Oral cavity is moist. Neck reveals no JVD, carotid bruits, or thyromegaly. CHEST EXAMINATION: Trachea is central. Symmetrical expansion. Lung baca clear to auscultation and percussion. CARDIAC: Normal S1, S2 with no gallops. No murmurs ABDOMEN: Soft. Bowel sounds normal. No organomegaly. No abdominal bruits. Extremities: reveal no edema. No clubbing or cyanosis Neurologically awake, alert, oriented x2-3 with well-coordinated movements. No focal deficits noted Skin: No rash or skin lesions. - Labs CBC & Chem 7: 11/04/21 07:46 11/04/21 07:51 Labs: Abnormal Lab Results - Last 24 Hours (Table) 11/04/21 11/04/21 Range/Units 07:46 07:51 RBC 3.25 L (3.80-5.40) m/uL Hgb 9.5 L (11.4-16.0) gm/dL Hct 31.7 L (34.0-46.0) % MCHC 30.0 L (31.0-37.0) g/dL RDW 17.4 H (11.5-15.5) % Potassium 3.4 L (3.5-5.1) mmol/L Chloride 108 H (98-107) mmol/L BUN 18 H (7-17) mg/dL Assessment and Plan Assessment: Acute blood loss anemia likely secondary to GI bleed Acute GI bleed with history of duodenal AVM Mildly elevated troponin level likely demand ischemia due to low hemoglobin Paroxysmal atrial fibrillation on anticoagulation with Eliquis currently on hold History of Brugada syndrome Recent admission due to E. coli urinary tract infection, fall and T12 compression fractures and altered mental status. Moderate to severe protein calorie malnutrition Chronic back pain status post lumbar laminectomy COPD not in exacerbation Hypertension Hyperlipidemia GERD, hiatal hernia Hypothyroidism History of bladder cancer status post surgery DVT prophylaxis with SCDs Plan: Patient will be continued on gentle IV hydration and monitor CBC. Transfuse if less than 7. Eliquis is on hold. Cardiology and GI is on board. Plan for EGD tomorrow. Continue to follow closely. Continue with telemetry monitoring. Continue with pain management. Prognosis is guarded.
[2021-11-04] MEDS: SERTRALINE 25 MG TAB PO SCH (21:07)
[2021-11-04] MEDS: DONEPEZIL 5 MG TAB PO SCH (21:07)
[2021-11-04] MEDS: ATORVASTATIN 40 MG TAB PO SCH (21:07)
[2021-11-05] MEDS: ALBUTEROL NEBULIZED 2.5 MG/3 ML INHALATION SCH (04:06)
[2021-11-05] MEDS: LEVOTHYROXINE 75 MCG TAB PO SCH (05:31)
[2021-11-05] MEDS ORDERED: ALBUTEROL NEBULIZED 2.5 MG/3 ML INHALATION PRN (07:53)
[2021-11-05] MEDS: FORMOTEROL FUMARATE 20 MCG/2 ML NEBU INHALATION SCH ×2 (08:03→19:52)
[2021-11-05] MEDS: IPRATROPIUM-ALBUTEROL 3 ML NEB INHALATION SCH ×4 (08:03→19:52)
[2021-11-05] MEDS: LOSARTAN 50 MG TAB PO SCH (09:36)
[2021-11-05] MEDS: PANTOPRAZOLE 40 MG/10 ML VIAL IVP SCH ×2 (09:36→20:12)
[2021-11-05] MEDS: METOPROLOL TARTRATE 25 MG TAB PO SCH ×2 (09:36→17:26)
[2021-11-05] MEDS: ISOSORBIDE MONONITRATE ER 30 MG TAB.ER.24H PO SCH (09:36)
[2021-11-05] MEDS: SODIUM CHLORIDE 0.9% 1,000 ML IV SCH (09:37)
[2021-11-05 12:52] LABS: Anisocytosis Slight; Basophils % (A) 1 %; Eosinophils # (A) 0.2 k/uL (0-0.7); Eosinophils % (A) 2 %; HCT 27.1 % (34.0-46.0); HGB 8.4 gm/dL (11.4-16.0); Hypochromasia Marked; Lymphocytes # (A) 1.1 k/uL (1.0-4.8); Lymphocytes % (A) 14 %; MCH 30.7 pg (25.0-35.0); MCV 99.1 fL (80.0-100.0); Macrocytosis Slight; Mean Platelet Volume 7.5; Monocytes # (A) 0.4 k/uL (0-1.0); Monocytes % (A) 5 %; Neutrophils # (A) 5.7 k/uL (1.3-7.7); Neutrophils % (A) 76 %; Platelet Count 286 k/uL (150-450); RBC 2.74 m/uL (3.80-5.40); RDW 18.6 % (11.5-15.5); WBC 7.5 k/uL (3.8-10.6)
[2021-11-05] MEDS: MULTIVITAMINS, THERA 1 EACH TAB PO SCH (12:56)
[2021-11-05 13:11] LABS: African American GFR (CKD) >90 (>60 ml/min/1.73 sqM); Anion Gap 7 mmol/L; Blood Urea Nitrogen 14 mg/dL (7-17); Calcium 7.8 mg/dL (8.4-10.2); Carbon Dioxide 19 mmol/L (22-30); Chloride 112 mmol/L (98-107); Glucose 114 mg/dL (74-99); Non-African American GFR(CKD) 83 (>60 ml/min/1.73 sqM); Potassium 3.4 mmol/L (3.5-5.1); Sodium 138 mmol/L (137-145)
[2021-11-05] MEDS: POTASSIUM CHLORIDE ER 20 MEQ TAB.ER PO SCH ×2 (15:17→16:09)
[2021-11-05] MEDS: POTASSIUM CHLORIDE ER 10 MEQ TAB.ER.PRT PO SCH (17:26)
--- NOTE | 2021-11-05 18:53 | P.PN ---
Subjective Progress Note Date: 11/05/21 Principal diagnosis: Acute blood loss anemia likely secondary to GI bleed Acute GI bleed with history of duodenal AVM Mildly elevated troponin level likely demand ischemia 86-year-old female with a known history of paroxysmal atrial fibrillation on anticoagulation with Eliquis, Brugada syndrome, history of bladder cancer treated with instillation, COPD, hypertension, hyperlipidemia, hypothyroidism was sent to ER due to low hemoglobin level at 5.7 when checked at extended-care facility. Patient was recently was admitted to the hospital due to altered mental status and fall in the bathroom. She was treated for acute E. coli urinary tract infection and urinary retention status post Ruffin catheter placement. Patient also had T12 compression fracture and back brace was recommended by orthopedic surgery. Patient was discharged to extended-care facility with improvement in pain and continuation of antibiotics. Patient otherwise denied any complaints of nausea vomiting or diarrhea. Denied any dark-colored stools denied blood in the stool. 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 Colonoscopy showed poor prep however no colorectal neoplasia noted. Small internal hemorrhoids. Patient has been afebrile. No cough or sputum production. No fever no chills. Laboratory data showed WBC 6.6 hemoglobin 6.2 platelets 226 and RDW 16.1 MCV 97.7 Sodium 139 potassium 2.9 chloride 110 bicarb is 23, BUN 43 and creatinine 0.64 Troponin 0.466, 0.477 and 0.497 albumin 3.0 11/05/2021 Patient is seen and evaluated in room at bedside; reports some abdominal discom fort Vital signs are reviewed and stable; labs reviewed revealed WBC 7.5, hemoglobin 8.4 and platelet count of 26, sodium 138, potassium 2.4, with BUN/creatinine of 14/0.59 Patient is status post EGD yesterday which reveals duodenal AVM with cauterization; patient is recommended to hold anticoagulation for 2 more days; patient has been evaluated by cardiology for elevated troponin which is deemed related to demand ischemia and no further workup was recommended Objective - Vital Signs Vital signs: Vital Signs Temp 97.6 F 11/05/21 08:00 Pulse 74 11/05/21 11:28 Resp 14 11/05/21 08:00 BP 163/73 11/05/21 08:00 Pulse Ox 93 L 11/05/21 08:00 FiO2 28 11/04/21 00:05 Intake & Output 11/04/21 11/05/21 11/05/21 18:59 06:59 18:59 Intake Total 550 450 120 Output Total 350 550 Balance 550 100 -430 Intake: IV 350 Sodium Chloride 0.9% 1, 150 000 ml @ 75 mls/hr IV . [id number] MISSY Rx#:[id number] Intake, IV Titration 450 Amount Sodium Chloride 0.9% 1, 450 000 ml @ 75 mls/hr IV . [id number] MISSY Rx#:[id number] Oral 200 120 Output: Urine 350 550 Other: Voiding Method Indwelling Catheter Indwelling Catheter - Exam Patient is lying in the bed comfortably, no acute distress, awake alert and oriented. Minimal confusion.. HEENT: Normocephalic. Neck is supple. Pupils reactive. Nostrils clear. Oral cavity is moist. Neck reveals no JVD, carotid bruits, or thyromegaly. CHEST EXAMINATION: Trachea is central. Symmetrical expansion. Lung baca clear to auscultation and percussion. CARDIAC: Normal S1, S2 with no gallops. No murmurs ABDOMEN: Soft. Bowel sounds normal. No organomegaly. No abdominal bruits. Extremities: reveal no edema. No clubbing or cyanosis Neurologically awake, alert, oriented x2-3 with well-coordinated movements. No focal deficits noted Skin: No rash or skin lesions. - Labs CBC & Chem 7: 11/05/21 12:27 11/05/21 12:27 Assessment and Plan Assessment: Acute blood loss anemia likely secondary to GI bleed Acute GI bleed with history of duodenal AVM Mildly elevated troponin level likely demand ischemia due to low hemoglobin Paroxysmal atrial fibrillation on anticoagulation with Eliquis currently on hold History of Brugada syndrome Recent admission due to E. coli urinary tract infection, fall and T12 compression fractures and altered mental status. Moderate to severe protein calorie malnutrition Chronic back pain status post lumbar laminectomy COPD not in exacerbation Hypertension Hyperlipidemia GERD, hiatal hernia Hypothyroidism History of bladder cancer status post surgery DVT prophylaxis with SCDs Plan: Patient will be continued on gentle IV hydration and monitor CBC. Transfuse if less than 7. Eliquis is on hold. Cardiology and GI is on board. Plan for EGD tomorrow. Continue to follow closely. Continue with telemetry monitoring. Continue with pain management. Prognosis is guarded.
[2021-11-05] MEDS: DONEPEZIL 5 MG TAB PO SCH (20:13)
[2021-11-05] MEDS: SERTRALINE 25 MG TAB PO SCH (20:13)
[2021-11-05] MEDS: ATORVASTATIN 40 MG TAB PO SCH (20:13)
[2021-11-06 09:06] LABS: Anisocytosis Slight; Basophils % (A) 1 %; Eosinophils # (A) 0.3 k/uL (0-0.7); Eosinophils % (A) 5 %; HCT 29.5 % (34.0-46.0); HGB 9.2 gm/dL (11.4-16.0); Hypochromasia Moderate; Lymphocytes # (A) 0.9 k/uL (1.0-4.8); Lymphocytes % (A) 13 %; MCH 30.9 pg (25.0-35.0); MCHC 31.4 g/dL (31.0-37.0); MCV 98.5 fL (80.0-100.0); Macrocytosis Slight; Mean Platelet Volume 7.7; Monocytes # (A) 0.4 k/uL (0-1.0); Monocytes % (A) 6 %; Neutrophils # (A) 4.9 k/uL (1.3-7.7); Neutrophils % (A) 74 %; Platelet Count 328 k/uL (150-450); RBC 2.99 m/uL (3.80-5.40); RDW 18.2 % (11.5-15.5); WBC 6.6 k/uL (3.8-10.6)
[2021-11-06 09:16] LABS: African American GFR (CKD) >90 (>60 ml/min/1.73 sqM); Anion Gap 5 mmol/L; Blood Urea Nitrogen 7 mg/dL (7-17); Calcium 8.1 mg/dL (8.4-10.2); Carbon Dioxide 23 mmol/L (22-30); Chloride 109 mmol/L (98-107); Glucose 91 mg/dL (74-99); Non-African American GFR(CKD) 83 (>60 ml/min/1.73 sqM); Potassium 3.4 mmol/L (3.5-5.1); Sodium 137 mmol/L (137-145)
[2021-11-06] MEDS: ISOSORBIDE MONONITRATE ER 30 MG TAB.ER.24H PO SCH (09:41)
[2021-11-06] MEDS: METOPROLOL TARTRATE 25 MG TAB PO SCH ×2 (09:41→15:57)
[2021-11-06] MEDS: LEVOTHYROXINE 75 MCG TAB PO SCH (09:41)
[2021-11-06] MEDS: LOSARTAN 50 MG TAB PO SCH (09:41)
[2021-11-06] MEDS: PANTOPRAZOLE 40 MG/10 ML VIAL IVP SCH ×2 (09:42→20:40)
[2021-11-06] MEDS: POTASSIUM CHLORIDE ER 20 MEQ TAB.ER PO SCH ×2 (09:42→15:57)
[2021-11-06] MEDS: FORMOTEROL FUMARATE 20 MCG/2 ML NEBU INHALATION SCH ×2 (10:20→20:44)
[2021-11-06] MEDS: IPRATROPIUM-ALBUTEROL 3 ML NEB INHALATION SCH ×5 (10:21→20:45)
--- NOTE | 2021-11-06 10:22 | XR ---
Right shoulder. HISTORY: Pain COMPARISON: None. TECHNIQUE: 4 views the right shoulder were obtained. FINDINGS: There are 2 metallic fasteners in the right humeral head presumably for rotator cuff repair. The osseous structures are mildly diffusely osteopenic. There is no fracture or dislocation. There is mild osteoarthritic change of the AC joint and glenohumeral joint. There is a small focal sclerotic lesion in the proximal humeral diaphysis most likely representing a benign enchondroma.. IMPRESSION: 1. No acute fracture or dislocation. 2. Mild degenerative changes AC joint and glenohumeral joint. 3. postsurgical changes presumably for rotator cuff repair
[2021-11-06] MEDS: MULTIVITAMINS, THERA 1 EACH TAB PO SCH (15:57)
[2021-11-06] MEDS: POTASSIUM CHLORIDE ER 10 MEQ TAB.ER.PRT PO SCH (15:57)
[2021-11-06] MEDS: amLODIPine 5 MG TAB PO SCH (16:00)
[2021-11-06] MEDS: SODIUM CHLORIDE 0.9% 1,000 ML IV SCH ×2 (16:50→16:51)
[2021-11-06] MEDS: SERTRALINE 25 MG TAB PO SCH (20:40)
[2021-11-06] MEDS: DONEPEZIL 5 MG TAB PO SCH (20:40)
[2021-11-06] MEDS: ATORVASTATIN 40 MG TAB PO SCH (20:40)
[2021-11-07] MEDS: LEVOTHYROXINE 75 MCG TAB PO SCH (05:59)
[2021-11-07] MEDS: FORMOTEROL FUMARATE 20 MCG/2 ML NEBU INHALATION SCH ×2 (09:29→21:20)
[2021-11-07] MEDS: IPRATROPIUM-ALBUTEROL 3 ML NEB INHALATION SCH ×4 (09:29→21:20)
[2021-11-07] MEDS: amLODIPine 5 MG TAB PO SCH (09:45)
[2021-11-07] MEDS: LOSARTAN 50 MG TAB PO SCH (09:45)
[2021-11-07] MEDS: ISOSORBIDE MONONITRATE ER 30 MG TAB.ER.24H PO SCH (09:45)
[2021-11-07] MEDS: PANTOPRAZOLE 40 MG/10 ML VIAL IVP SCH ×2 (09:45→20:35)
[2021-11-07] MEDS: METOPROLOL TARTRATE 25 MG TAB PO SCH ×2 (09:45→17:36)
[2021-11-07] MEDS: MULTIVITAMINS, THERA 1 EACH TAB PO SCH (12:36)
--- NOTE | 2021-11-07 17:24 | P.PN ---
Subjective Progress Note Date: 11/07/21 Principal diagnosis: Symptomatic Anemia An 86-year-old female who was admitted with symptomatic anemia who underwent EGD as part of evaluation for that anemia. She had a previous history of GI bleed and underwent EGD with findings of AVM. 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 Patient had been on anticoagulation that has been held throughout the weekend. Her hemoglobin is stableat 9.2. She's denied any further blood in her stool. Objective - Vital Signs Vital signs: Vital Signs Temp 98 F 11/07/21 09:45 Pulse 79 11/07/21 09:52 Resp 18 11/07/21 09:45 BP 139/73 11/07/21 09:45 Pulse Ox 100 11/07/21 09:45 FiO2 28 11/04/21 00:05 Intake & Output 11/06/21 11/07/21 11/07/21 18:59 06:59 18:59 Intake Total 240 Output Total 750 1700 Balance -510 -1700 Intake: Oral 240 Output: Urine 750 1700 Other: Voiding Method Indwelling Catheter Indwelling Catheter - Exam General appearance: The patient is alert, oriented, appears in no acute distress. HET: Head is normocephalic and atraumatic. Conjunctiva pink. Sclera anicteric. Neck: Supple without lymphadenopathy. Abdomen: Soft, nontender, nondistended with bowel sounds. No guarding or rigidity. Extremities: Normal skin color and turgor. No pedal edema Skin: No rashes, no jaundice Neurological: No focal deficits. Pleasantly confused. Alert and oriented 1. - Labs CBC & Chem 7: 11/06/21 08:34 11/06/21 08:34 Assessment and Plan (1) Anemia Narrative/Plan: 86-year-old female who presented for abnormal low hemoglobin during routine labs. Admitting hemoglobin 6.2 was given 1 unit PRBC transfusion with the improvement to a 0.5. She does have a history of atrial fibrillation on eliquis. She has a previous history of anemia with questionable GI bleed and underwent endoscopic evaluation in February [address] Sams. Her colonoscopy did have areas of poor prep however no bleeding noted and no colorectal neoplasia. EGD however did show a nonbleeding duodenal AVM status post cautery. Possible etiology for anemia could be related to acute blood loss from AVM. With patient's history would recommend proceeding with the EGD tomorrow. Patient is status post EGD with finding of duodenal AVM status post cautery with cold probe. No further bleeding. Stable hemoglobin at 9.2. Current Visit: Yes Status: Acute Code(s): D64.9 - ANEMIA, UNSPECIFIED SNOMED Code(s): 907113840 (2) Atrial fibrillation Current Visit: No Status: Acute Code(s): I48.91 - UNSPECIFIED ATRIAL FIBRILLATION SNOMED Code(s): 67612879 (3) Elevated troponin Narrative/Plan: Cardiology following, elevated troponin and not consistent with acute coronary syndrome. Patient is cleared for upper endoscopy. Current Visit: No Status: Acute Code(s): R74.8 - ABNORMAL LEVELS OF OTHER SERUM ENZYMES SNOMED Code(s): 656091189 Plan: 1. Continue symptomatic and supportive care 2. Heart healthy diet 3. Protonix 40 mg daily 4. Patient is status post EGD 5. May resume anticoagulation 6. The patient is cleared by gastroenterology for discharge Thank you for this consultation, we will sign off at this time. Dr. Keyon Sams I agree with the dictator's note, documented as a scribe by Claire Hathaway.
[2021-11-07] MEDS: POTASSIUM CHLORIDE ER 10 MEQ TAB.ER.PRT PO SCH (17:36)
[2021-11-07 20:17] LABS: Glucose,Whole Blood 102 mg/dL (75-99)
[2021-11-07] MEDS: SERTRALINE 25 MG TAB PO SCH (20:35)
[2021-11-07] MEDS: DONEPEZIL 5 MG TAB PO SCH (20:35)
[2021-11-07] MEDS: ATORVASTATIN 40 MG TAB PO SCH (20:35)
[2021-11-07] MEDS: APIXABAN 2.5 MG TABLET PO SCH (23:08)
[2021-11-08] MEDS: LEVOTHYROXINE 75 MCG TAB PO SCH (06:31)
[2021-11-08] MEDS: FORMOTEROL FUMARATE 20 MCG/2 ML NEBU INHALATION SCH ×2 (07:29→19:39)
[2021-11-08] MEDS: IPRATROPIUM-ALBUTEROL 3 ML NEB INHALATION SCH ×4 (07:29→19:39)
[2021-11-08] MEDS: amLODIPine 5 MG TAB PO SCH (10:11)
[2021-11-08] MEDS: ISOSORBIDE MONONITRATE ER 30 MG TAB.ER.24H PO SCH (10:11)
[2021-11-08] MEDS: PANTOPRAZOLE 40 MG/10 ML VIAL IVP SCH ×2 (10:11→21:22)
[2021-11-08] MEDS: APIXABAN 2.5 MG TABLET PO SCH ×2 (10:11→21:21)
[2021-11-08] MEDS: METOPROLOL TARTRATE 25 MG TAB PO SCH ×2 (10:11→15:57)
[2021-11-08] MEDS: LOSARTAN 50 MG TAB PO SCH (10:11)
[2021-11-08 10:46] LABS: Anisocytosis Slight; Basophils % (A) 1 %; Eosinophils # (A) 0.3 k/uL (0-0.7); Eosinophils % (A) 5 %; HCT 30.7 % (34.0-46.0); HGB 9.3 gm/dL (11.4-16.0); Hypochromasia Marked; Lymphocytes % (A) 17 %; MCH 30.1 pg (25.0-35.0); MCHC 30.2 g/dL (31.0-37.0); MCV 99.8 fL (80.0-100.0); Macrocytosis Slight; Mean Platelet Volume 7.8; Monocytes # (A) 0.4 k/uL (0-1.0); Monocytes % (A) 6 %; Neutrophils # (A) 3.9 k/uL (1.3-7.7); Neutrophils % (A) 69 %; Platelet Count 372 k/uL (150-450); RBC 3.08 m/uL (3.80-5.40); RDW 17.8 % (11.5-15.5); WBC 5.7 k/uL (3.8-10.6)
[2021-11-08 11:07] LABS: African American GFR (CKD) >90 (>60 ml/min/1.73 sqM); Anion Gap 10 mmol/L; Blood Urea Nitrogen 7 mg/dL (7-17); Calcium 8.6 mg/dL (8.4-10.2); Carbon Dioxide 23 mmol/L (22-30); Chloride 104 mmol/L (98-107); Glucose 85 mg/dL (74-99); Non-African American GFR(CKD) 82 (>60 ml/min/1.73 sqM); Potassium 3.3 mmol/L (3.5-5.1); Sodium 137 mmol/L (137-145)
[2021-11-08] MEDS ORDERED: POTASSIUM CHLORIDE ER 20 MEQ TAB.ER PO STA (11:52)
--- NOTE | 2021-11-08 11:56 | P.PN ---
Subjective Progress Note Date: 11/06/21 Principal diagnosis: Acute blood loss anemia likely secondary to GI bleed Acute GI bleed with history of duodenal AVM Mildly elevated troponin level likely demand ischemia 86-year-old female with a known history of paroxysmal atrial fibrillation on anticoagulation with Eliquis, Brugada syndrome, history of bladder cancer yasmin shannon with instillation, COPD, hypertension, hyperlipidemia, hypothyroidism was sent to ER due to low hemoglobin level at 5.7 when checked at extended-care facility. Patient was recently was admitted to the hospital due to altered mental status and fall in the bathroom. She was treated for acute E. coli urinary tract infection and urinary retention status post Ruffin catheter placement. Patient also had T12 compression fracture and back brace was recommended by orthopedic surgery. Patient was discharged to extended-care facility with improvement in pain and continuation of antibiotics. Patient otherwise denied any complaints of nausea vomiting or diarrhea. Denied any dark-colored stools denied blood in the stool. 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 Colonoscopy showed poor prep however no colorectal neoplasia noted. Small internal hemorrhoids. Patient has been afebrile. No cough or sputum production. No fever no chills. Laboratory data showed WBC 6.6 hemoglobin 6.2 platelets 226 and RDW 16.1 MCV 97.7 Sodium 139 potassium 2.9 chloride 110 bicarb is 23, BUN 43 and creatinine 0.64 Troponin 0.466, 0.477 and 0.497 albumin 3.0 11/05/2021 Patient is seen and evaluated in room at bedside; reports some abdominal discomfort Vital signs are reviewed and stable; labs reviewed revealed WBC 7.5, hemoglobin 8.4 and platelet count of 26, sodium 138, potassium 2.4, with BUN/creatinine of 14/0.59 Patient is status post EGD yesterday which reveals duodenal AVM with cauterization; patient is recommended to hold anticoagulation for 2 more days; patient has been evaluated by cardiology for elevated troponin which is deemed related to demand ischemia and no further workup was recommended 11/06/2021 Patient is lying in the bed. Awake alert and oriented 2-3. Complains of right shoulder pain and unable to lift her shoulder. X-ray showed no acute fracture or dislocation. Mild degenerative changes before meals joint and glenohumeral joint. Postsurgical changes of rotator cuff repair. Patient has been afebrile. Denied any hematemesis or melena. Hemoglobin improved to 9.2 today. Anticoagulation is on hold. Patient is status post EGD. With findings of AVM. Continue on pain management. Encourage PT OT. Current medications reviewed. Objective - Vital Signs Vital signs: Vital Signs Temp 97.8 F 11/06/21 08:00 Pulse 70 11/06/21 14:00 Resp 18 11/06/21 14:00 BP 168/76 11/06/21 12:00 Pulse Ox 97 11/06/21 12:00 FiO2 28 11/04/21 00:05 Intake & Output 11/05/21 11/06/21 11/06/21 18:59 06:59 18:59 Intake Total 680 240 Output Total 950 300 550 Balance -270 -300 -310 Intake: Oral 680 240 Output: Urine 950 300 550 Other: Voiding Method Indwelling Catheter Indwelling Catheter Indwelling Catheter - Exam - Exam Patient is lying in the bed comfortably, no acute distress, awake alert and or iented. Minimal confusion.. HEENT: Normocephalic. Neck is supple. Pupils reactive. Nostrils clear. Oral cavity is moist. Neck reveals no JVD, carotid bruits, or thyromegaly. CHEST EXAMINATION: Trachea is central. Symmetrical expansion. Lung baca clear to auscultation and percussion. CARDIAC: Normal S1, S2 with no gallops. No murmurs ABDOMEN: Soft. Bowel sounds normal. No organomegaly. No abdominal bruits. Extremities: reveal no edema. No clubbing or cyanosis Neurologically awake, alert, oriented x2-3 with well-coordinated movements. No focal deficits noted Skin: No rash or skin lesions. - Labs CBC & Chem 7: 11/08/21 09:53 11/08/21 09:53 Labs: Abnormal Lab Results - Last 24 Hours (Table) 11/06/21 11/06/21 Range/Units 08:34 08:34 RBC 2.99 L (3.80-5.40) m/uL Hgb 9.2 L (11.4-16.0) gm/dL Hct 29.5 L (34.0-46.0) % RDW 18.2 H (11.5-15.5) % Lymphocytes # 0.9 L (1.0-4.8) k/uL Potassium 3.4 L (3.5-5.1) mmol/L Chloride 109 H (98-107) mmol/L Calcium 8.1 L (8.4-10.2) mg/dL Assessment and Plan Assessment: Acute blood loss anemia likely secondary to GI bleed. Status post EGD showing AVM. Hemoglobin is stable. 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 coli urinary tract infection, fall and T12 comp ression fractures and altered mental status. Moderate to severe protein calorie malnutrition Chronic back pain status post lumbar laminectomy COPD not in exacerbation Hypertension Hyperlipidemia GERD, hiatal hernia Hypothyroidism History of bladder cancer status post surgery DVT prophylaxis with SCDs Plan: Patient is status post EGD showing AVM. Hemoglobin is fairly stable. Patient will be continued on gentle IV hydration and monitor CBC. Transfuse if less than 7. Eliquis is on hold. Cardiology and GI has seen the patient.. Continued with pain management and PT OT. Continue to follow closely. Continue with telemetry monitoring. Prognosis is guarded. Time with Patient: Greater than 30
--- NOTE | 2021-11-08 11:58 | P.PN ---
Subjective Progress Note Date: 11/07/21 Principal diagnosis: Acute blood loss anemia likely secondary to GI bleed Acute GI bleed with history of duodenal AVM Mildly elevated troponin level likely demand ischemia 86-year-old female with a known history of paroxysmal atrial fibrillation on anticoagulation with Eliquis, Brugada syndrome, history of bladder cancer yasmin shannon with instillation, COPD, hypertension, hyperlipidemia, hypothyroidism was sent to ER due to low hemoglobin level at 5.7 when checked at extended-care facility. Patient was recently was admitted to the hospital due to altered mental status and fall in the bathroom. She was treated for acute E. coli urinary tract infection and urinary retention status post Ruffin catheter placement. Patient also had T12 compression fracture and back brace was recommended by orthopedic surgery. Patient was discharged to extended-care facility with improvement in pain and continuation of antibiotics. Patient otherwise denied any complaints of nausea vomiting or diarrhea. Denied any dark-colored stools denied blood in the stool. 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 Colonoscopy showed poor prep however no colorectal neoplasia noted. Small internal hemorrhoids. Patient has been afebrile. No cough or sputum production. No fever no chills. Laboratory data showed WBC 6.6 hemoglobin 6.2 platelets 226 and RDW 16.1 MCV 97.7 Sodium 139 potassium 2.9 chloride 110 bicarb is 23, BUN 43 and creatinine 0.64 Troponin 0.466, 0.477 and 0.497 albumin 3.0 11/05/2021 Patient is seen and evaluated in room at bedside; reports some abdominal discomfort Vital signs are reviewed and stable; labs reviewed revealed WBC 7.5, hemoglobin 8.4 and platelet count of 26, sodium 138, potassium 2.4, with BUN/creatinine of 14/0.59 Patient is status post EGD yesterday which reveals duodenal AVM with cauterization; patient is recommended to hold anticoagulation for 2 more days; patient has been evaluated by cardiology for elevated troponin which is deemed related to demand ischemia and no further workup was recommended 11/06/2021 Patient is lying in the bed. Awake alert and oriented 2-3. Complains of right shoulder pain and unable to lift her shoulder. X-ray showed no acute fracture or dislocation. Mild degenerative changes before meals joint and glenohumeral joint. Postsurgical changes of rotator cuff repair. Patient has been afebrile. Denied any hematemesis or melena. Hemoglobin improved to 9.2 today. Anticoagulation is on hold. Patient is status post EGD. With findings of AVM. Continue on pain management. Encourage PT OT. 11/08/2019 Patient is resting in the bed. Awake alert and oriented 2-3. Still complains of pain. No hematemesis or melena. Currently on oral diet. Continued on Protonix. Patient will be started back on anticoagulation monitor hemoglobin. Denied any nausea or vomiting. No chest pain or shortness of breath. No headache or dizziness or lightheadedness. Encourage PT OT. Possible transfer back to rehab in the next 24-48 hours. Current medications reviewed. Objective - Vital Signs Vital signs: Vital Signs Temp 98.6 F 11/07/21 12:35 Pulse 80 11/07/21 21:32 Resp 16 11/07/21 17:35 BP 141/66 11/07/21 17:35 Pulse Ox 97 11/07/21 17:35 FiO2 28 11/04/21 00:05 Intake & Output 11/07/21 11/07/21 11/08/21 06:59 18:59 06:59 Intake Total 480 240 Output Total 1700 300 Balance -1700 180 240 Intake: Oral 480 240 Output: Urine 1700 300 Other: Voiding Method Indwelling Catheter Indwelling Catheter - Exam - Exam Patient is lying in the bed comfortably, no acute distress, awake alert and oriented. Minimal confusion.. HEENT: Normocephalic. Neck is supple. Pupils reactive. Nostrils clear. Oral cavity is moist. Neck reveals no JVD, carotid bruits, or thyromegaly. CHEST EXAMINATION: Trachea is central. Symmetrical expansion. Lung baca clear to auscultation and percussion. CARDIAC: Normal S1, S2 with no gallops. No murmurs ABDOMEN: Soft. Bowel sounds normal. No organomegaly. No abdominal bruits. Extremities: reveal no edema. No clubbing or cyanosis Neurologically awake, alert, oriented x2-3 with well-coordinated movements. No focal deficits noted Skin: No rash or skin lesions. - Labs CBC & Chem 7: 11/08/21 09:53 11/08/21 09:53 Labs: Abnormal Lab Results - Last 24 Hours (Table) 11/07/21 Range/Units 20:14 POC Glucose (mg/dL) 102 H (75-99) mg/dL Assessment and Plan Assessment: Acute blood loss anemia likely secondary to GI bleed. Status post EGD showing AVM. Hemoglobin is stable. 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 coli urinary tract infection, fall and T12 compression fractures and altered mental status. Moderate to severe protein calorie malnutrition Chronic back pain status post lumbar laminectomy COPD not in exacerbation Hypertension Hyperlipidemia GERD, hiatal hernia Hypothyroidism History of bladder cancer status post surgery DVT prophylaxis with SCDs Plan: Patient is status post EGD showing AVM. Hemoglobin is fairly stable. Started back on anticoagulation, Eliquis today. Patient will be continued on gentle IV hydration and monitor CBC. Transfuse if less than 7. Cardiology and GI has seen the patient.. Continued with pain management and PT OT. Continue to follow closely. Continue with telemetry monitoring. Prognosis is guarded. Time with Patient: Greater than 30
[2021-11-08] MEDS: MULTIVITAMINS, THERA 1 EACH TAB PO SCH (13:48)
[2021-11-08] MEDS: POTASSIUM CHLORIDE ER 10 MEQ TAB.ER.PRT PO SCH (15:57)
[2021-11-08] MEDS: SERTRALINE 25 MG TAB PO SCH (21:21)
[2021-11-08] MEDS: DONEPEZIL 5 MG TAB PO SCH (21:21)
[2021-11-08] MEDS: ATORVASTATIN 40 MG TAB PO SCH (21:22)
[2021-11-09] MEDS: SODIUM CHLORIDE 0.9% 1,000 ML IV SCH ×2 (06:05→09:37)
[2021-11-09] MEDS: LEVOTHYROXINE 75 MCG TAB PO SCH (06:05)
[2021-11-09] MEDS: IPRATROPIUM-ALBUTEROL 3 ML NEB INHALATION SCH ×4 (08:41→20:33)
[2021-11-09] MEDS: FORMOTEROL FUMARATE 20 MCG/2 ML NEBU INHALATION SCH ×2 (08:41→20:33)
[2021-11-09] MEDS: APIXABAN 2.5 MG TABLET PO SCH ×2 (09:36→19:55)
[2021-11-09] MEDS: PANTOPRAZOLE 40 MG/10 ML VIAL IVP SCH ×2 (09:36→19:55)
[2021-11-09] MEDS: METOPROLOL TARTRATE 25 MG TAB PO SCH ×2 (09:37→17:13)
[2021-11-09] MEDS: LOSARTAN 50 MG TAB PO SCH (09:37)
[2021-11-09] MEDS: ISOSORBIDE MONONITRATE ER 30 MG TAB.ER.24H PO SCH (09:37)
[2021-11-09 11:07] VITALS: BMI 21.9
[2021-11-09] MEDS: amLODIPine 5 MG TAB PO SCH (12:16)
[2021-11-09] MEDS: MULTIVITAMINS, THERA 1 EACH TAB PO SCH (17:13)
[2021-11-09] MEDS: POTASSIUM CHLORIDE ER 10 MEQ TAB.ER.PRT PO SCH (17:13)
[2021-11-09] MEDS: ATORVASTATIN 40 MG TAB PO SCH (19:55)
[2021-11-09] MEDS: DONEPEZIL 5 MG TAB PO SCH (19:55)
[2021-11-09] MEDS: SERTRALINE 25 MG TAB PO SCH (19:55)
[2021-11-10] MEDS: LEVOTHYROXINE 75 MCG TAB PO SCH (06:37)
[2021-11-10] MEDS: SODIUM CHLORIDE 0.9% 1,000 ML IV SCH ×3 (06:38→06:39)
[2021-11-10] MEDS: FORMOTEROL FUMARATE 20 MCG/2 ML NEBU INHALATION SCH (07:47)
[2021-11-10] MEDS: IPRATROPIUM-ALBUTEROL 3 ML NEB INHALATION SCH ×2 (07:47→11:04)
[2021-11-10 08:17] VITALS: TEMP 97.6
[2021-11-10] MEDS: LOSARTAN 50 MG TAB PO SCH (08:27)
[2021-11-10] MEDS: amLODIPine 5 MG TAB PO SCH (08:28)
[2021-11-10] MEDS: APIXABAN 2.5 MG TABLET PO SCH (08:28)
[2021-11-10] MEDS: METOPROLOL TARTRATE 25 MG TAB PO SCH (08:28)
[2021-11-10] MEDS: PANTOPRAZOLE 40 MG/10 ML VIAL IVP SCH (08:28)
[2021-11-10] MEDS: ISOSORBIDE MONONITRATE ER 30 MG TAB.ER.24H PO SCH (08:28)
[2021-11-10 08:32] LABS: Anisocytosis Slight; Basophils # (A) 0.1 k/uL (0-0.2); Basophils % (A) 1 %; Eosinophils # (A) 0.3 k/uL (0-0.7); Eosinophils % (A) 4 %; HCT 31.9 % (34.0-46.0); HGB 9.8 gm/dL (11.4-16.0); Hypochromasia Moderate; Lymphocytes % (A) 14 %; MCH 30.1 pg (25.0-35.0); MCHC 30.7 g/dL (31.0-37.0); Macrocytosis Slight; Mean Platelet Volume 7.4; Monocytes # (A) 0.4 k/uL (0-1.0); Monocytes % (A) 5 %; Neutrophils # (A) 5.7 k/uL (1.3-7.7); Neutrophils % (A) 75 %; Platelet Count 372 k/uL (150-450); RBC 3.26 m/uL (3.80-5.40); RDW 16.4 % (11.5-15.5); WBC 7.5 k/uL (3.8-10.6)
[2021-11-10 08:54] LABS: African American GFR (CKD) >90 (>60 ml/min/1.73 sqM); Anion Gap 10 mmol/L; Blood Urea Nitrogen 9 mg/dL (7-17); Calcium 8.6 mg/dL (8.4-10.2); Carbon Dioxide 24 mmol/L (22-30); Chloride 102 mmol/L (98-107); Glucose 104 mg/dL (74-99); Non-African American GFR(CKD) 88 (>60 ml/min/1.73 sqM); Potassium 3.9 mmol/L (3.5-5.1); Sodium 136 mmol/L (137-145)
--- NOTE | 2021-11-10 11:34 | P.PN ---
Subjective Progress Note Date: 11/09/21 Principal diagnosis: Acute blood loss anemia likely secondary to GI bleed Acute GI bleed with history of duodenal AVM Mildly elevated troponin level likely demand ischemia 86-year-old female with a known history of paroxysmal atrial fibrillation on anticoagulation with Eliquis, Brugada syndrome, history of bladder cancer yasmin shannon with instillation, COPD, hypertension, hyperlipidemia, hypothyroidism was sent to ER due to low hemoglobin level at 5.7 when checked at extended-care facility. Patient was recently was admitted to the hospital due to altered mental status and fall in the bathroom. She was treated for acute E. coli urinary tract infection and urinary retention status post Ruffin catheter placement. Patient also had T12 compression fracture and back brace was recommended by orthopedic surgery. Patient was discharged to extended-care facility with improvement in pain and continuation of antibiotics. Patient otherwise denied any complaints of nausea vomiting or diarrhea. Denied any dark-colored stools denied blood in the stool. 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 Colonoscopy showed poor prep however no colorectal neoplasia noted. Small internal hemorrhoids. Patient has been afebrile. No cough or sputum production. No fever no chills. Laboratory data showed WBC 6.6 hemoglobin 6.2 platelets 226 and RDW 16.1 MCV 97.7 Sodium 139 potassium 2.9 chloride 110 bicarb is 23, BUN 43 and creatinine 0.64 Troponin 0.466, 0.477 and 0.497 albumin 3.0 11/05/2021 Patient is seen and evaluated in room at bedside; reports some abdominal discomfort Vital signs are reviewed and stable; labs reviewed revealed WBC 7.5, hemoglobin 8.4 and platelet count of 26, sodium 138, potassium 2.4, with BUN/creatinine of 14/0.59 Patient is status post EGD yesterday which reveals duodenal AVM with cauterization; patient is recommended to hold anticoagulation for 2 more days; patient has been evaluated by cardiology for elevated troponin which is deemed related to demand ischemia and no further workup was recommended 11/06/2021 Patient is lying in the bed. Awake alert and oriented 2-3. Complains of right shoulder pain and unable to lift her shoulder. X-ray showed no acute fracture or dislocation. Mild degenerative changes before meals joint and glenohumeral joint. Postsurgical changes of rotator cuff repair. Patient has been afebrile. Denied any hematemesis or melena. Hemoglobin improved to 9.2 today. Anticoagulation is on hold. Patient is status post EGD. With findings of AVM. Continue on pain management. Encourage PT OT. 11/07/2021 Patient is resting in the bed. Awake alert and oriented 2-3. Still complains of pain. No hematemesis or melena. Currently on oral diet. Continued on Protonix. Patient will be started back on anticoagulation monitor hemoglobin. Denied any nausea or vomiting. No chest pain or shortness of breath. No headache or dizziness or lightheadedness. Encourage PT OT. Possible transfer back to rehab in the next 24-48 hours. 11/08/2021 Patient is lying in the bed comfortably. Still complains of right shoulder pain and unable to lift her arm. Denied any chest pain or shortness of breath. No nausea vomiting or abdominal pain. Patient has been afebrile. No cough or sputum production. laboratory data showed WBC 5.7 hemoglobin 9.3 and platelets 372. Potassium 3.3 BUN 17 creatinine 0.62 and cashew 8.6. Patient was started back on anticoagulation. 11/09/2021. Patient is currently resting in bed. Awake alert and oriented and able to communicate. She complains of right shoulder pain but improved, able to lift her arm. No fever no chills. No cough is from production. No chest pain or shortness of breath. Denied any hematemesis or melena. Hemoglobin is improving. Follow-up CBC and BMP tomorrow and anticipate discharge to rehab. Back pain is controlled as well. Current medications reviewed. Objective - Vital Signs Vital signs: Vital Signs Temp 97.6 F 11/10/21 08:00 Pulse 74 11/10/21 08:03 Resp 17 11/10/21 08:00 BP 183/66 11/10/21 08:00 Pulse Ox 90 L 11/10/21 08:00 FiO2 21 11/09/21 20:33 Intake & Output 11/09/21 11/10/21 11/10/21 18:59 06:59 18:59 Intake Total 600 240 Output Total 550 1000 Balance 50 -1000 240 Weight 54.431 kg Intake: Oral 600 240 Output: Urine 550 1000 Other: Voiding Method Indwelling Catheter Indwelling Catheter Indwelling Catheter # Bowel Movements 1 - Exam - Exam Patient is lying in the bed comfortably, no acute distress, awake alert and oriented. Minimal confusion.. HEENT: Normocephalic. Neck is supple. Pupils reactive. Nostrils clear. Oral cavity is moist. Neck reveals no JVD, carotid bruits, or thyromegaly. CHEST EXAMINATION: Trachea is central. Symmetrical expansion. Lung baca clear to auscultation and percussion. CARDIAC: Normal S1, S2 with no gallops. No murmurs ABDOMEN: Soft. Bowel sounds normal. No organomegaly. No abdominal bruits. Extremities: reveal no edema. No clubbing or cyanosis Neurologically awake, alert, oriented x2-3 with well-coordinated movements. No focal deficits noted Skin: No rash or skin lesions. - Labs CBC & Chem 7: 11/10/21 07:52 11/10/21 07:52 Labs: Abnormal Lab Results - Last 24 Hours (Table) 11/10/21 11/10/21 Range/Units 07:52 07:52 RBC 3.26 L (3.80-5.40) m/uL Hgb 9.8 L (11.4-16.0) gm/dL Hct 31.9 L (34.0-46.0) % MCHC 30.7 L (31.0-37.0) g/dL RDW 16.4 H (11.5-15.5) % Sodium 136 L (137-145) mmol/L Creatinine 0.51 L (0.52-1.04) mg/dL Glucose 104 H (74-99) mg/dL Assessment and Plan Assessment: Acute blood loss anemia likely secondary to GI bleed. Status post EGD showing AVM. Hemoglobin is stable. 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 coli urinary tract infection, fall and T12 compression fractures and altered mental status. Moderate to severe protein calorie malnutrition Chronic back pain status post lumbar laminectomy COPD not in exacerbation Hypertension Hyperlipidemia GERD, hiatal hernia Hypothyroidism History of bladder cancer status post surgery DVT prophylaxis with SCDs Plan: Patient is status post EGD showing AVM. Hemoglobin is fairly stable. Started back on anticoagulation, Eliquis .. Continue the pain management of the right shoulder pain. X-ray showed no fracture or dislocation. Patient will be continued on gentle IV hydration and monitor CBC. Transfuse if less than 7. Cardiology and GI has seen the patient.. Continued with pain management and PT OT. Continue to follow closely. Continue with telemetry monitoring. Prognosis is guarded. Time with Patient: Greater than 30
--- NOTE | 2021-11-10 11:42 | P.DS ---
Providers Date of admission: 11/02/21 21:04 Expected date of discharge: 11/10/21 Attending physician: Manish Garcia Consults: 11/02/21 21:04 Consult Physician Urgent Consulting Provider: [facility] Reason/Comments: Non-STEMI, anemia Do you want consulting provider notified?: Yes Primary care physician: Ebenezer Caldwell Hospital Course: Discharge diagnosis Acute blood loss anemia likely secondary to GI bleed. Status post EGD showing AVM. Hemoglobin is stable. Continue PPI daily. 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 coli urinary tract infection, fall and T12 compression fractures and altered mental status. Moderate to severe protein calorie malnutrition Chronic back pain status post lumbar laminectomy COPD not in exacerbation Hypertension Hyperlipidemia GERD, hiatal hernia Hypothyroidism History of bladder cancer status post surgery Hospital course 86-year-old female with a known history of paroxysmal atrial fibrillation on ant icoagulation with Eliquis, Brugada syndrome, history of bladder cancer treated with instillation, COPD, hypertension, hyperlipidemia, hypothyroidism was sent to ER due to low hemoglobin level at 5.7 when checked at extended-care facility. Patient was recently was admitted to the hospital due to altered mental status and fall in the bathroom. She was treated for acute E. coli urinary tract infection and urinary retention status post Ruffin catheter placement. Patient also had T12 compression fracture and back brace was recommended by orthopedic surgery. Patient was discharged to extended-care facility with improvement in pain and continuation of antibiotics. Patient otherwise denied any complaints of nausea vomiting or diarrhea. Denied any dark-colored stools denied blood in the stool. 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 Colonoscopy showed poor prep however no colorectal neoplasia noted. Small internal hemorrhoids. Patient has been afebrile. No cough or sputum production. No fever no chills. Laboratory data showed WBC 6.6 hemoglobin 6.2 platelets 226 and RDW 16.1 MCV 97.7 Sodium 139 potassium 2.9 chloride 110 bicarb is 23, BUN 43 and creatinine 0.64 Troponin 0.466, 0.477 and 0.497 albumin 3.0 11/05/2021 Patient is seen and evaluated in room at bedside; reports some abdominal discomfort Vital signs are reviewed and stable; labs reviewed revealed WBC 7.5, hemoglobin 8.4 and platelet count of 26, sodium 138, potassium 2.4, with BUN/creatinine of 14/0.59 Patient is status post EGD yesterday which reveals duodenal AVM with cauterization; patient is recommended to hold anticoagulation for 2 more days; patient has been evaluated by cardiology for elevated troponin which is deemed related to demand ischemia and no further workup was recommended 11/06/2021 Patient is lying in the bed. Awake alert and oriented 2-3. Complains of right shoulder pain and unable to lift her shoulder. X-ray showed no acute fracture or dislocation. Mild degenerative changes before meals joint and glenohumeral joint. Postsurgical changes of rotator cuff repair. Patient has been afebrile. Denied any hematemesis or melena. Hemoglobin improved to 9.2 today. Anticoagulation is on hold. Patient is status post EGD. With findings of AVM. Continue on pain management. Encourage PT OT. 11/07/2021 Patient is resting in the bed. Awake alert and oriented 2-3. Still complains of pain. No hematemesis or melena. Currently on oral diet. Continued on Protonix. Patient will be started back on anticoagulation monitor hemoglobin. Denied any nausea or vomiting. No chest pain or shortness of breath. No headache or dizziness or lightheadedness. Encourage PT OT. Possible transfer back to rehab in the next 24-48 hours. 11/08/2021 Patient is lying in the bed comfortably. Still complains of right shoulder pain and unable to lift her arm. Denied any chest pain or shortness of breath. No nausea vomiting or abdominal pain. Patient has been afebrile. No cough or sputum production. laboratory data showed WBC 5.7 hemoglobin 9.3 and platelets 372. Potassium 3.3 BUN 17 creatinine 0.62 and cashew 8.6. Patient was started back on anticoagulation. 11/09/2021. Patient is currently resting in bed. Awake alert and oriented and able to communicate. She complains of right shoulder pain but improved, able to lift her arm. No fever no chills. No cough is from production. No chest pain or shortness of breath. Denied any hematemesis or melena. Hemoglobin is improving. Follow-up CBC and BMP tomorrow and anticipate discharge to rehab. Back pain is controlled as well. 11/10/2021 Patient is awake alert and oriented. Denied any complaints of chest pain or shortness of breath. Right shoulder pain and back pain is better. Patient is able to lift her right arm. No complaints of fever or chills. No other acute overnight issues. Hemoglobin is stable. Other laboratory data showed WBC 7.4 hemoglobin 9.8) and platelets 372, BUN 19 creatinine 0.45 and calcium 8.6. Patient will be continued on Protonix 40 mg daily and follow with GI in the clinic. Patient is being discharged to extended care facility today. PHYSICAL EXAMINATION: Patient is lying in the bed comfortably, no acute distress, awake alert and oriented. Thin built and cachectic.. HEENT: Normocephalic. Neck is supple. Pupils reactive. Nostrils clear. Oral cavity is moist. Neck reveals no JVD, carotid bruits, or thyromegaly. CHEST EXAMINATION: Trachea is central. Symmetrical expansion. Lung baca clear to auscultation and percussion. CARDIAC: Normal S1, S2 with no gallops. No murmurs ABDOMEN: Soft. Bowel sounds normal. No organomegaly. No abdominal bruits. Extremities: reveal no edema. No clubbing or cyanosis Neurologically awake, alert, oriented x2-3 with well-coordinated movements. No focal deficits noted Skin: No rash or skin lesions. Psychiatric: Coperative. Nonsuicidal Musculoskeletal: No joint swelling or deformity. Normal range of motion. Vital Signs 11/10/21 11/10/21 11/10/21 04:00 07:46 07:48 Temperature Pulse Rate 74 Pulse Rate [ 75 Bilateral Dorsalis Pedis] Pulse Rate [ Pulse Oximetery ] Respiratory 16 Rate Blood Pressure 167/76 [Left Arm] O2 Sat by Pulse 93 L 93 L Oximetry 11/10/21 11/10/21 11/10/21 07:54 08:00 08:03 Temperature 97.6 F Pulse Rate 74 74 Pulse Rate [ Bilateral Dorsalis Pedis] Pulse Rate [ 76 Pulse Oximetery ] Respiratory 17 Rate Blood Pressure 183/66 [Left Arm] O2 Sat by Pulse 90 L Oximetry Total time taken greater than 35 minutes including 18 minutes for counseling and coordination of care. Patient Condition at Discharge: Stable Plan - Discharge Summary Discharge Rx Participant: Yes New Discharge Prescriptions: Continue Levothyroxine Sodium [Synthroid] 75 mcg PO DAILY@0600 Metoprolol Tartrate [Lopressor] 25 mg PO BID@0800,1700 Umeclidinium Brm/Vilanterol Tr [Anoro Ellipta 62.5-25 Mcg INH] 1 puff INHALATION RT-DAILY@0800 Sertraline [Zoloft] 25 mg PO HS@2100 Ipratropium Nebulized [Atrovent Nebulized 0.2 MG/ML] 0.5 mg INHALATION RT-QID PRN PRN Reason: Shortness Of Breath Omeprazole 20 mg PO DAILY@0800 Multivitamins, Thera [Multivitamin (formulary)] 1 tab PO DAILY@1200 Na Phos,M-B/Na Phos,Di-Ba [Fleet Adult] 133 ml RECTAL DAILY PRN PRN Reason: Constipation Magnesium Hydroxide [Milk of Magnesia Concentrate] 7,200 mg PO DAILY PRN PRN Reason: AFTER 2 DAYS OF CONSTIPATION Ensure Enlive 237 ml PO TID@0800,1200,1700 Ferrous Sulfate [Iron (65 MG Elemental)] 325 mg PO BID@0800,1700 Apixaban [Eliquis] 2.5 mg PO BID@0800,1700 Atorvastatin [Lipitor] 40 mg PO HS@2100 Potassium Chloride [Potassium Chloride ER] 10 meq PO DAILY@1700 Donepezil [Aricept] 5 mg PO HS@2100 Acetaminophen Tab [Tylenol] 650 mg PO Q6HR PRN tab PRN Reason: Fever And/ Or Pain Albuterol Sulfate [Proair Hfa] 2 puff INHALATION RT-Q4H Nitroglycerin Sl Tabs [Nitrostat] 0.4 mg SL Q5M PRN PRN Reason: Chest Pain Sennosides [Senna] 8.6 mg PO HS PRN #30 tablet PRN Reason: Constipation bisacodyL [Dulcolax] 10 mg RECTAL DAILY PRN PRN Reason: Constipation Losartan [Cozaar] 50 mg PO DAILY@0800 Isosorbide Mononitrate ER [Imdur] 30 mg PO DAILY@0800 Changed Lactulose 10 gm PO DAILY@0800 PRN #0 PRN Reason: Constipation Discontinued cefUROXime axetiL [Ceftin] 500 mg PO BID@0800,1700 Discharge Medication List Levothyroxine Sodium [Synthroid] 75 mcg PO DAILY@0600 12/11/18 [History] Metoprolol Tartrate [Lopressor] 25 mg PO BID@0800,1700 05/19/19 [History] Umeclidinium Brm/Vilanterol Tr [Anoro Ellipta 62.5-25 Mcg INH] 1 puff INHALATION RT-DAILY@0800 02/15/21 [History] Acetaminophen Tab [Tylenol] 650 mg PO Q6HR PRN tab 02/18/21 [Rx] Ipratropium Nebulized [Atrovent Nebulized 0.2 MG/ML] 0.5 mg INHALATION RT-QID PRN 03/01/21 [History] Omeprazole 20 mg PO DAILY@0800 03/01/21 [History] Sertraline [Zoloft] 25 mg PO HS@209903/01/21 [History] Albuterol Sulfate [Proair Hfa] 2 puff INHALATION RT-Q4H 04/29/21 [History] Multivitamins, Thera [Multivitamin (formulary)] 1 tab PO DAILY@1200 04/29/21 [History] Nitroglycerin Sl Tabs [Nitrostat] 0.4 mg SL Q5M PRN 04/29/21 [History] Sennosides [Senna] 8.6 mg PO HS PRN #30 tablet 05/02/21 [Rx] Apixaban [Eliquis] 2.5 mg PO BID@0800,1700 06/27/21 [History] Atorvastatin [Lipitor] 40 mg PO HS@2100 06/27/21 [History] Ensure Enlive 237 ml PO TID@0800,1200,1700 06/27/21 [History] Ferrous Sulfate [Iron (65 MG Elemental)] 325 mg PO BID@0800,1700 06/27/21 [History] Isosorbide Mononitrate ER [Imdur] 30 mg PO DAILY@0800 06/27/21 [History] Losartan [Cozaar] 50 mg PO DAILY@0800 06/27/21 [History] Magnesium Hydroxide [Milk of Magnesia Concentrate] 7,200 mg PO DAILY PRN 06/27/21 [History] Na Phos,M-B/Na Phos,Di-Ba [Fleet Adult] 133 ml RECTAL DAILY PRN 06/27/21 [History] bisacodyL [Dulcolax] 10 mg RECTAL DAILY PRN 06/27/21 [History] Potassium Chloride [Potassium Chloride ER] 10 meq PO DAILY@1700 10/27/21 [History] Donepezil [Aricept] 5 mg PO HS@2100 11/02/21 [History] Lactulose 10 gm PO DAILY@0800 PRN #0 11/10/21 [Rx] Follow up Appointment(s)/Referral(s): Ebenezer Caldwell MD [Primary Care Provider] - 1-2 days Discharge Disposition: TRANSFER TO SNF/ECF
[2021-11-10 11:59] VITALS: BP 121/52; PULSE 84; RESP 15
[2021-11-10] MEDS: MULTIVITAMINS, THERA 1 EACH TAB PO SCH (12:14)
== END 2021-11-10 14:26 | DRG 377 ==
LOC: EC 19:13 → 3SCARD 21:04
PROVIDERS: ADMIT Hospitalist; ATTEND Hospitalist
PROC: 30233H1 Transfusion of Nonautologous Whole Blood into Peripheral Vein, Percutaneous Approach (ICD-10-PCS; 2021-11-02)
PROC: 0W3P8ZZ Control Bleeding in Gastrointestinal Tract, Via Natural or Artificial Opening Endoscopic (ICD-10-PCS; principal; 2021-11-04 13:05)
DX: K31.811 Angiodysplasia of stomach and duodenum with bleeding (principal); E43 Unspecified severe protein-calorie malnutrition; D62 Acute posthemorrhagic anemia; I24.8 Other forms of acute ischemic heart disease; M48.54XA Collapsed vertebra, not elsewhere classified, thoracic region, initial encounter for fracture; K44.9 Diaphragmatic hernia without obstruction or gangrene; K64.8 Other hemorrhoids; M47.9 Spondylosis, unspecified; I50.9 Heart failure, unspecified; J44.9 Chronic obstructive pulmonary disease, unspecified; K21.9 Gastro-esophageal reflux disease without esophagitis; R09.02 Hypoxemia; Z79.01 Long term (current) use of anticoagulants; Z79.890 Hormone replacement therapy; Z79.899 Other long term (current) drug therapy; Z80.49 Family history of malignant neoplasm of other genital organs; E03.9 Hypothyroidism, unspecified; E78.5 Hyperlipidemia, unspecified; E87.6 Hypokalemia; F03.90 Unspecified dementia, unspecified severity, without behavioral disturbance, psychotic disturbance, mood disturbance, and anxiety; F32.A Depression, unspecified; F41.9 Anxiety disorder, unspecified; G89.29 Other chronic pain; I11.0 Hypertensive heart disease with heart failure; I48.0 Paroxysmal atrial fibrillation; Z85.51 Personal history of malignant neoplasm of bladder; Z85.820 Personal history of malignant melanoma of skin; Z87.891 Personal history of nicotine dependence; Z90.710 Acquired absence of both cervix and uterus; Z92.21 Personal history of antineoplastic chemotherapy; Z90.89 Acquired absence of other organs; Z98.890 Other specified postprocedural states; Z91.81 History of falling; Z20.822 Contact with and (suspected) exposure to COVID-19; Z98.42 Cataract extraction status, left eye; Z98.41 Cataract extraction status, right eye; I49.8 Other specified cardiac arrhythmias; Z87.440 Personal history of urinary (tract) infections; Z83.6 Family history of other diseases of the respiratory system; Z88.2 Allergy status to sulfonamides; Z88.1 Allergy status to other antibiotic agents; Z88.5 Allergy status to narcotic agent; Z91.013 Allergy to seafood
CPT/HCPCS: 36415; 43270; 80048; 80053; 80061; 84484; 85025; 85027; 85610; 85730; 86850; 86900; 86901; 86920; 87635; 93005; 94640; 94760; 99291

== ENCOUNTER 2021-11-29 01:42 | Emergency (ER) | payer MEDICARE, BC ==
--- NOTE | 2021-11-29 02:00 | ED ---
Fall HPI - General Stated Complaint: Fall Time Seen by Provider: 11/29/21 01:56 Source: RN notes reviewed, old records reviewed Mode of arrival: ambulatory Limitations: no limitations - History of Present Illness Initial Comments: This is a 86-year-old female is a poor historian. She comes in after a trip and fall suspected trip and fall where she did hit her head and is on blood thinners. No specific external injuries noted. History obtained by EMS MD Complaint: fall -: unknown Fall From: standing When Fall Occurred: unsure Fall Witnessed: no Place Fall Occurred: home Loss of Consciousness: none Prolonged Down Time?: no Symptoms Prior to Fall: none Location: head Severity: mild Severity scale (1-10): 2 Context: tripped/slipped Associated Symptoms: headache - Related Data Home Medications Medication Instructions Recorded Confirmed Levothyroxine Sodium [Synthroid] 75 mcg PO DAILY@0600 12/11/18 11/02/21 Metoprolol Tartrate [Lopressor] 25 mg PO BID@0800,1700 05/19/19 11/02/21 Umeclidinium Brm/Vilanterol Tr 1 puff INHALATION RT-DAILY@0800 02/15/21 11/02/21 [Anoro Ellipta 62.5-25 Mcg INH] Ipratropium Nebulized [Atrovent 0.5 mg INHALATION RT-QID PRN 03/01/21 11/02/21 Nebulized 0.2 MG/ML] Sertraline [Zoloft] 25 mg PO HS@2100 03/01/21 11/02/21 Albuterol Sulfate [Proair Hfa] 2 puff INHALATION RT-Q4H 04/29/21 11/02/21 Multivitamins, Thera [Multivitamin 1 tab PO DAILY@1200 04/29/21 11/02/21 (formulary)] Nitroglycerin Sl Tabs [Nitrostat] 0.4 mg SL Q5M PRN 04/29/21 11/02/21 Apixaban [Eliquis] 2.5 mg PO BID@0800,1700 06/27/21 11/02/21 Atorvastatin [Lipitor] 40 mg PO HS@2100 06/27/21 11/02/21 Ensure Enlive 237 ml PO TID@0800,1200,1700 06/27/21 11/02/21 Ferrous Sulfate [Iron (65 MG 325 mg PO BID@0800,1700 06/27/21 11/02/21 Elemental)] Isosorbide Mononitrate ER [Imdur] 30 mg PO DAILY@0800 06/27/21 11/02/21 Losartan [Cozaar] 50 mg PO DAILY@0800 06/27/21 11/02/21 Magnesium Hydroxide [Milk of 7,200 mg PO DAILY PRN 06/27/21 11/02/21 Magnesia Concentrate] Na Phos,M-B/Na Phos,Di-Ba [Fleet 133 ml RECTAL DAILY PRN 06/27/21 11/02/21 Adult] bisacodyL [Dulcolax] 10 mg RECTAL DAILY PRN 06/27/21 11/02/21 Potassium Chloride [Potassium 10 meq PO DAILY@1700 10/27/21 11/02/21 Chloride ER] Donepezil [Aricept] 5 mg PO HS@2100 11/02/21 11/02/21 Previous Rx's Medication Instructions Recorded Acetaminophen Tab [Tylenol] 650 mg PO Q6HR PRN tab 02/18/21 Sennosides [Senna] 8.6 mg PO HS PRN #30 tablet 05/02/21 Lactulose 10 gm PO DAILY@0800 PRN #0 11/10/21 Pantoprazole [Protonix] 40 mg PO DAILY #30 tab 11/10/21 Allergies Allergy/AdvReac Type Severity Reaction Status Date / Time azithromycin Allergy Unknown Verified 11/02/21 22:09 mussels Allergy Unknown Verified 11/02/21 22:09 codeine AdvReac Nausea & Verified 11/02/21 22:09 Vomiting Sulfa (Sulfonamide AdvReac Nausea & Verified 11/02/21 22:09 Antibiotics) Vomiting Review of Systems ROS Statement: Those systems with pertinent positive or pertinent negative responses have been documented in the HPI. ROS Other: All systems not noted in ROS Statement are negative. 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 History of Any Multi-Drug Resistant Organisms: None Reported Past Surgical History: Adenoidectomy, Back Surgery, Bladder Surgery, Breast Surgery, Hysterectomy, Orthopedic Surgery, Tonsillectomy Additional Past Surgical History / Comment(s): R knee arthroscopic surgery, lumbar laminectomy, R rotator cuff repair, D&C, total hysterectomy, L arm melanoma excised, cystoscopy for instillation to burn bladder holder d/t bladder cancer, R breast benign bx, bilateral cataract removals, bilateral vein stripping, EGD, colonoscopy. Past Anesthesia/Blood Transfusion Reactions: Postoperative Nausea & Vomiting (PONV) Additional Past Anesthesia/Blood Transfusion Reaction / Comment(s): Pt has received blood in past without reaction. Past Psychological History: Anxiety, Depression Additional Psychological History / Comment(s): Pt lives at [facility] in memory care unit. Smoking Status: Former smoker Past Alcohol Use History: None Reported Additional Past Alcohol Use History / Comment(s): Pt started smoking in 1956 and quit in 2016. Past Drug Use History: None Reported - Past Family History Mother Family Medical History: Cancer, Pneumonia, Respiratory Disorder Additional Family Medical History / Comment(s): TB, uterine cancer. Father Family Medical History: No Reported History Additional Family Medical History / Comment(s): Father was healthy. Course Vital Signs 11/29/21 11/29/21 02:09 06:13 Temperature 98.8 F Pulse Rate 54 L 61 Respiratory 16 19 Rate Blood Pressure 170/73 109/68 O2 Sat by Pulse 98 95 Oximetry - Reevaluation(s) Reevaluation #1: 11/29/21 Medical record is reviewed Reevaluation #2: 11/29/21 Patient informed results and questions answered Reevaluation #3: 11/29/21 Patient's in no acute distress can be discharged Medical Decision Making - Medical Decision Making 86 female status post trip and fall trip and fall did hit head. Patient has no specific trauma noted to fall. At this time patient can be discharged home - Radiology Data Radiology results: report reviewed (CT brain C-spine negative for acute disease), image reviewed Disposition Clinical Impression: Fall Disposition: HOME SELF-CARE Condition: Good Instructions (If sedation given, give patient instructions): Fall Prevention for Older Adults (ED) Is patient prescribed a controlled substance at d/c from ED?: No Referrals: Chaz Fox MD [Primary Care Provider] - 1-2 days Time of Disposition: 06:00
[2021-11-29 02:19] VITALS: TEMP 98.8
--- NOTE | 2021-11-29 02:53 | CT ---
EXAM: CT Head Without Intravenous Contrast CLINICAL HISTORY: ITS.REASON CT Reason: fall TECHNIQUE: Axial computed tomography images of the head/brain without intravenous contrast. CTDI is 26.35 mGy and DLP is 623.65 mGy-cm. This CT exam was performed using one or more of the following dose reduction techniques: automated exposure control, adjustment of the mA and/or kV according to patient size, and/or use of iterative reconstruction technique. COMPARISON: No relevant prior studies available. FINDINGS: Brain: No hemorrhage, herniation, or mass effect. Chronic microvascular ischemic changes. Ventricles: No hydrocephalus. Age related cerebral volume loss. Bones/joints: Unremarkable. Soft tissues: Unremarkable. Sinuses: Unremarkable. Mastoid air cells: Clear. IMPRESSION: No acute hemorrhage, hydrocephalus, or mass effect. EXAM: CT Cervical Spine Without Intravenous Contrast CLINICAL HISTORY: ITS.REASON CT Reason: fall TECHNIQUE: Axial computed tomography images of the cervical spine without intravenous contrast. CTDI is 26.35 mGy and DLP is 623.65 mGy-cm. This CT exam was performed using one or more of the following dose reduction techniques: automated exposure control, adjustment of the mA and/or kV according to patient size, and/or use of iterative reconstruction technique. COMPARISON: No relevant prior studies available. FINDINGS: Vertebrae: No acute fracture. Discs/spinal canal/neural foramina: degenerative changes. Soft tissues: No prevertebral swelling. COPD. IMPRESSION: No acute fracture or subluxation.
[2021-11-29 06:13] VITALS: BP 109/68; PULSE 61; RESP 19
== END 2021-11-29 06:14 | disposition home or self-care (01) ==
LOC: EC 01:42
DX: Z04.3 Encounter for examination and observation following other accident (principal); I11.0 Hypertensive heart disease with heart failure; J44.9 Chronic obstructive pulmonary disease, unspecified; E78.5 Hyperlipidemia, unspecified; K21.9 Gastro-esophageal reflux disease without esophagitis; E07.9 Disorder of thyroid, unspecified; Z79.83 Long term (current) use of bisphosphonates; Z79.899 Other long term (current) drug therapy; Z88.1 Allergy status to other antibiotic agents; Z88.2 Allergy status to sulfonamides; Z88.5 Allergy status to narcotic agent; Z87.891 Personal history of nicotine dependence
CPT/HCPCS: 70450; 72125; 99284

== ENCOUNTER 2022-01-13 15:22 | Emergency (ER) | payer MEDICARE, BC ==
[2022-01-13 15:28] VITALS: TEMP 97.5
--- NOTE | 2022-01-13 15:47 | CT ---
EXAMINATION TYPE: CT brain sterling low con DATE OF EXAM: 01/13/2022 COMPARISON: 11/29/2021 HISTORY: Fall CT DLP: 1226.[address] of the brain was performed. The ventricles, basal cisterns and sulci overlying the cerebral convexities demonstrate mild enlargem ent. There is no evidence for intracranial hemorrhage or sulcal effacement. There is decreased attenuatio n about the periventricular white matter and deep white matter of both cerebral hemispheres, compatib le with chronic small vessel ischemia. No mass effects are seen. If symptoms persist consider MRI. Osseous calvarium is intact. IMPRESSION: 1. Age related atrophic and chronic small vessel ischemic change without acute intracranial process seen at this time. CT Cervical Spine: Unenhanced CT of the cervical spine was performed with bone and soft tissue window settings submitted . Coronal and sagittal reconstruction is obtained. There is normal alignment and prevertebral soft tissues. No evidence for acute cervical fracture . Scattered degenerative disc disease and spondylosis. Biapical scarring. IMPRESSION: 1. No evidence for acute fracture or subluxation of the cervical spine.
--- NOTE | 2022-01-13 16:20 | ED ---
General Adult HPI - General Chief complaint: Fall Stated complaint: Fall Time Seen by Provider: 01/13/22 15:23 Source: patient, EMS, RN notes reviewed, old records reviewed Mode of arrival: EMS Limitations: no limitations - History of Present Illness Initial comments: 86-year-old female presents status post fall. Patient had an unwitnessed fall at the assisted she resides. She states that her wheelchair got hung up on the carpet and she fell while trying to move it. She states she did hit the left side of her face. No loss conscious. The patient is on Eliquis, there was reported injury to the elbow but the patient states this is quite minimal and does not currently have any pain with range of motion or any pain at all. No chest pain or abdominal pain. No lower extremity injury. - Related Data Home Medications Medication Instructions Recorded Confirmed Levothyroxine Sodium [Synthroid] 75 mcg PO DAILY@0600 12/11/18 11/02/21 Metoprolol Tartrate [Lopressor] 25 mg PO BID@0800,1700 05/19/19 11/02/21 Umeclidinium Brm/Vilanterol Tr 1 puff INHALATION RT-DAILY@0800 02/15/21 11/02/21 [Anoro Ellipta 62.5-25 Mcg INH] Ipratropium Nebulized [Atrovent 0.5 mg INHALATION RT-QID PRN 03/01/21 11/02/21 Nebulized 0.2 MG/ML] Sertraline [Zoloft] 25 mg PO HS@2100 03/01/21 11/02/21 Albuterol Sulfate [Proair Hfa] 2 puff INHALATION RT-Q4H 04/29/21 11/02/21 Multivitamins, Thera [Multivitamin 1 tab PO DAILY@1200 04/29/21 11/02/21 (formulary)] Nitroglycerin Sl Tabs [Nitrostat] 0.4 mg SL Q5M PRN 04/29/21 11/02/21 Apixaban [Eliquis] 2.5 mg PO BID@0800,1700 06/27/21 11/02/21 Atorvastatin [Lipitor] 40 mg PO HS@2100 06/27/21 11/02/21 Ensure Enlive 237 ml PO TID@0800,1200,1700 06/27/21 11/02/21 Ferrous Sulfate [Iron (65 MG 325 mg PO BID@0800,1700 06/27/21 11/02/21 Elemental)] Isosorbide Mononitrate ER [Imdur] 30 mg PO DAILY@0800 06/27/21 11/02/21 Losartan [Cozaar] 50 mg PO DAILY@0800 06/27/21 11/02/21 Magnesium Hydroxide [Milk of 7,200 mg PO DAILY PRN 06/27/21 11/02/21 Magnesia Concentrate] Na Phos,M-B/Na Phos,Di-Ba [Fleet 133 ml RECTAL DAILY PRN 06/27/21 11/02/21 Adult] bisacodyL [Dulcolax] 10 mg RECTAL DAILY PRN 06/27/21 11/02/21 Potassium Chloride [Potassium 10 meq PO DAILY@1700 10/27/21 11/02/21 Chloride ER] Donepezil [Aricept] 5 mg PO HS@2100 11/02/21 11/02/21 Previous Rx's Medication Instructions Recorded Acetaminophen Tab [Tylenol] 650 mg PO Q6HR PRN tab 02/18/21 Sennosides [Senna] 8.6 mg PO HS PRN #30 tablet 05/02/21 Lactulose 10 gm PO DAILY@0800 PRN #0 11/10/21 Pantoprazole [Protonix] 40 mg PO DAILY #30 tab 11/10/21 Allergies Allergy/AdvReac Type Severity Reaction Status Date / Time azithromycin Allergy Unknown Verified 11/02/21 22:09 mussels Allergy Unknown Verified 11/02/21 22:09 codeine AdvReac Nausea & Verified 11/02/21 22:09 Vomiting Sulfa (Sulfonamide AdvReac Nausea & Verified 11/02/21 22:09 Antibiotics) Vomiting Review of Systems ROS Statement: Those systems with pertinent positive or pertinent negative responses have been documented in the HPI. ROS Other: All systems not noted in ROS Statement are negative. 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 History of Any Multi-Drug Resistant Organisms: None Reported Past Surgical History: Adenoidectomy, Back Surgery, Bladder Surgery, Breast Surgery, Hysterectomy, Orthopedic Surgery, Tonsillectomy Additional Past Surgical History / Comment(s): R knee arthroscopic surgery, lumbar laminectomy, R rotator cuff repair, D&C, total hysterectomy, L arm melanoma excised, cystoscopy for instillation to burn bladder holder d/t bladder cancer, R breast benign bx, bilateral cataract removals, bilateral vein stripping, EGD, colonoscopy. Past Anesthesia/Blood Transfusion Reactions: Postoperative Nausea & Vomiting (PONV) Additional Past Anesthesia/Blood Transfusion Reaction / Comment(s): Pt has received blood in past without reaction. Past Psychological History: Anxiety, Depression Additional Psychological History / Comment(s): Pt lives at [facility] in [facility] care unit. Smoking Status: Former smoker Past Alcohol Use History: None Reported Additional Past Alcohol Use History / Comment(s): Pt started smoking in 1956 and quit in 2016. Past Drug Use History: None Reported - Past Family History Mother Family Medical History: Cancer, Pneumonia, Respiratory Disorder Additional Family Medical History / Comment(s): TB, uterine cancer. Father Family Medical History: No Reported History Additional Family Medical History / Comment(s): Father was healthy. General Exam Limitations: no limitations General appearance: alert, in no apparent distress Head exam: Present: other (Infraorbital ecchymosis on the left. No hyphema, normal extraocular motions.) Eye exam: Present: normal appearance, PERRL, EOMI Neck exam: Present: normal inspection. Absent: tenderness, meningismus Respiratory exam: Present: normal lung sounds bilaterally. Absent: respiratory distress, wheezes Cardiovascular Exam: Present: regular rate, normal rhythm GI/Abdominal exam: Present: soft. Absent: distended, tenderness, guarding, gorodn ound Extremities exam: Present: normal inspection, full ROM, normal capillary refill. Absent: tenderness, pedal edema, joint swelling, calf tenderness Neurological exam: Present: alert, CN II-XII intact. Absent: motor sensory deficit Psychiatric exam: Present: normal affect, normal mood Skin exam: Present: warm, dry, cyanosis, diaphoretic Course Vital Signs 01/13/22 15:26 Temperature 97.5 F L Pulse Rate 58 L Respiratory 18 Rate Blood Pressure 143/71 O2 Sat by Pulse 96 Oximetry Medical Decision Making - Medical Decision Making 86-year-old female with fall, head trauma. Head CT performed negative for intracranial hemorrhage or mass effect. Cervical spine negative for fracture subluxation. Patient had baseline, stable for discharge. Disposition Clinical Impression: Fall, Concussion Disposition: HOME SELF-CARE Condition: Fair Instructions (If sedation given, give patient instructions): Fall Prevention for Older Adults (ED), Concussion (ED) Is patient prescribed a controlled substance at d/c from ED?: No Referrals: Chaz Fox MD [Primary Care Provider] - 1-2 days Time of Disposition: 16:15
[2022-01-13 18:37] VITALS: BP 196/77; PULSE 69; RESP 16
== END 2022-01-13 18:37 | disposition home or self-care (01) ==
LOC: EC 15:22
DX: S06.0X9A Concussion with loss of consciousness of unspecified duration, initial encounter (principal); J44.9 Chronic obstructive pulmonary disease, unspecified; E78.5 Hyperlipidemia, unspecified; I10 Essential (primary) hypertension; Z79.899 Other long term (current) drug therapy; E07.9 Disorder of thyroid, unspecified; Z87.891 Personal history of nicotine dependence; Z88.1 Allergy status to other antibiotic agents; Z88.2 Allergy status to sulfonamides; Z88.8 Allergy status to other drugs, medicaments and biological substances; W19.XXXA Unspecified fall, initial encounter
CPT/HCPCS: 70450; 72125

== ENCOUNTER 2022-04-05 07:00 | Emergency (ER) | payer MEDICARE, BC, OTHER ==
[2022-04-05] MEDS ORDERED: SODIUM CHLORIDE 0.9% 1,000 ML IV STA (07:05)
[2022-04-05 07:11] VITALS: TEMP 98.8
--- NOTE | 2022-04-05 07:25 | ED ---
Altered Mental Status HPI - General Stated Complaint: Altered Mental Status Time Seen by Provider: 04/05/22 07:00 Source: patient, EMS, RN notes reviewed Mode of arrival: EMS Limitations: altered mental status - History of Present Illness Initial Comments: 86-year-old female history of multiple medical issues including a prior history of brain bleed dementia normally alert oriented times one was less responsive this morning at the snf she resides at [facility] concern for altered mental status. Is very lethargic apparently upon EMS was contacted as time progressed she became more alert. She denies any pain no reports of fevers chills nausea vomiting sweats no trauma. No focal deficits. MD Complaint: altered mental status, decreased responsiveness - Related Data Home Medications Medication Instructions Recorded Confirmed Levothyroxine Sodium [Synthroid] 75 mcg PO DAILY@0600 12/11/18 11/02/21 Metoprolol Tartrate [Lopressor] 25 mg PO BID@0800,1700 05/19/19 11/02/21 Umeclidinium Brm/Vilanterol Tr 1 puff INHALATION RT-DAILY@0800 02/15/21 11/02/21 [Anoro Ellipta 62.5-25 Mcg INH] Ipratropium Nebulized [Atrovent 0.5 mg INHALATION RT-QID PRN 03/01/21 11/02/21 Nebulized 0.2 MG/ML] Sertraline [Zoloft] 25 mg PO HS@2100 03/01/21 11/02/21 Albuterol Sulfate [Proair Hfa] 2 puff INHALATION RT-Q4H 04/29/21 11/02/21 Multivitamins, Thera [Multivitamin 1 tab PO DAILY@1200 04/29/21 11/02/21 (formulary)] Nitroglycerin Sl Tabs [Nitrostat] 0.4 mg SL Q5M PRN 04/29/21 11/02/21 Apixaban [Eliquis] 2.5 mg PO BID@0800,1700 06/27/21 11/02/21 Atorvastatin [Lipitor] 40 mg PO HS@2100 06/27/21 11/02/21 Ensure Enlive 237 ml PO TID@0800,1200,1700 06/27/21 11/02/21 Ferrous Sulfate [Iron (65 MG 325 mg PO BID@0800,1700 06/27/21 11/02/21 Elemental)] Isosorbide Mononitrate ER [Imdur] 30 mg PO DAILY@0800 06/27/21 11/02/21 Losartan [Cozaar] 50 mg PO DAILY@0800 06/27/21 11/02/21 Magnesium Hydroxide [Milk of 7,200 mg PO DAILY PRN 06/27/21 11/02/21 Magnesia Concentrate] Na Phos,M-B/Na Phos,Di-Ba [Fleet 133 ml RECTAL DAILY PRN 06/27/21 11/02/21 Adult] bisacodyL [Dulcolax] 10 mg RECTAL DAILY PRN 06/27/21 11/02/21 Potassium Chloride [Potassium 10 meq PO DAILY@1700 10/27/21 11/02/21 Chloride ER] Donepezil [Aricept] 5 mg PO HS@2100 11/02/21 11/02/21 Previous Rx's Medication Instructions Recorded Acetaminophen Tab [Tylenol] 650 mg PO Q6HR PRN tab 02/18/21 Sennosides [Senna] 8.6 mg PO HS PRN #30 tablet 05/02/21 Lactulose 10 gm PO DAILY@0800 PRN #0 11/10/21 Pantoprazole [Protonix] 40 mg PO DAILY #30 tab 11/10/21 Cephalexin [Keflex] 500 mg PO Q8HR 1 Days #30 cap 04/05/22 Allergies Allergy/AdvReac Type Severity Reaction Status Date / Time azithromycin Allergy Unknown Verified 04/05/22 07:07 mussels Allergy Unknown Verified 04/05/22 07:07 codeine AdvReac Nausea & Verified 04/05/22 07:07 Vomiting Sulfa (Sulfonamide AdvReac Nausea & Verified 04/05/22 07:07 Antibiotics) Vomiting Review of Systems ROS Statement: Those systems with pertinent positive or pertinent negative responses have been documented in the HPI. ROS Other: All systems not noted in ROS Statement are negative. 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 History of Any Multi-Drug Resistant Organisms: None Reported Past Surgical History: Adenoidectomy, Back Surgery, Bladder Surgery, Breast Surgery, Hysterectomy, Orthopedic Surgery, Tonsillectomy Additional Past Surgical History / Comment(s): R knee arthroscopic surgery, lumbar laminectomy, R rotator cuff repair, D&C, total hysterectomy, L arm melanoma excised, cystoscopy for instillation to burn bladder holder d/t bladder cancer, R breast benign bx, bilateral cataract removals, bilateral vein stripping, EGD, colonoscopy. Past Anesthesia/Blood Transfusion Reactions: Postoperative Nausea & Vomiting (PONV) Additional Past Anesthesia/Blood Transfusion Reaction / Comment(s): Pt has received blood in past without reaction. Past Psychological History: Anxiety, Depression Smoking Status: Former smoker Past Alcohol Use History: None Reported Past Drug Use History: None Reported - Past Family History Mother Family Medical History: Cancer, Pneumonia, Respiratory Disorder Additional Family Medical History / Comment(s): TB, uterine cancer. Father Family Medical History: No Reported History Additional Family Medical History / Comment(s): Father was healthy. General Exam - General Exam Comments Initial Comments: This is a well-developed frail-appearing female who is awake alert in no acute distress Limitations: altered mental status General appearance: alert, in no apparent distress Head exam: Present: atraumatic, normocephalic, normal inspection Eye exam: Present: normal appearance, PERRL, EOMI. Absent: scleral icterus, conjunctival injection, periorbital swelling ENT exam: Present: mucous membranes dry Neck exam: Present: normal inspection, full ROM, other (No stridor JVD or bruits). Absent: tenderness, meningismus, lymphadenopathy Respiratory exam: Present: normal lung sounds bilaterally. Absent: respiratory distress, wheezes, rales, rhonchi, stridor Cardiovascular Exam: Present: regular rate, normal rhythm, normal heart sounds. Absent: systolic murmur, diastolic murmur, rubs, gallop, clicks GI/Abdominal exam: Present: soft, normal bowel sounds. Absent: distended, tenderness, guarding, rebound, rigid Extremities exam: Present: normal inspection, full ROM, normal capillary refill. Absent: tenderness, pedal edema, joint swelling, calf tenderness Back exam: Present: normal inspection Neurological exam: Present: alert, altered, CN II-XII intact, other (She appears to be at baseline) Psychiatric exam: Present: normal affect, normal mood Skin exam: Present: warm, dry, intact, normal color. Absent: rash Course Vital Signs 04/05/22 04/05/22 07:07 08:59 Temperature 98.8 F Pulse Rate 88 54 L Respiratory 15 16 Rate Blood Pressure 187/88 174/77 O2 Sat by Pulse 100 96 Oximetry Medical Decision Making - Medical Decision Making Patient does demonstrate evidence of urinary tract infection as well as mild dehydration. Patient was given IV antibiotics and fluids in the emergency department she'll be transferred back to her snf placed on oral Keflex. He has no pain at this time I did discuss this with her she states she's never had urinary tract infection quite like this. - Lab Data Result diagrams: 04/05/22 07:49 04/05/22 07:49 Lab Results 04/05/22 04/05/22 04/05/22 Range/Units 07:49 07:49 07:49 WBC 6.2 (3.8-10.6) k/uL RBC 4.26 (3.80-5.40) m/uL Hgb 13.4 (11.4-16.0) gm/dL Hct 40.7 (34.0-46.0) % MCV 95.5 (80.0-100.0) fL MCH 31.5 (25.0-35.0) pg MCHC 32.9 (31.0-37.0) g/dL RDW 14.4 (11.5-15.5) % Plt Count 167 (150-450) k/uL MPV 8.5 Neutrophils % 66 % Lymphocytes % 21 % Monocytes % 5 % Eosinophils % 4 % Basophils % 1 % Neutrophils # 4.1 (1.3-7.7) k/uL Lymphocytes # 1.3 (1.0-4.8) k/uL Monocytes # 0.3 (0-1.0) k/uL Eosinophils # 0.3 (0-0.7) k/uL Basophils # 0.1 (0-0.2) k/uL PT 11.4 (9.0-12.0) sec INR 1.1 (<1.2) APTT 25.1 (22.0-30.0) sec Sodium (137-145) mmol/L Potassium (3.5-5.1) mmol/L Chloride (98-107) mmol/L Carbon Dioxide (22-30) mmol/L Anion Gap mmol/L BUN (7-17) mg/dL Creatinine (0.52-1.04) mg/dL Est GFR (CKD-EPI)AfAm (>60 ml/min/1.73 sqM) Est GFR (CKD-EPI)NonAf (>60 ml/min/1.73 sqM) Glucose (74-99) mg/dL POC Glucose (mg/dL) (70-110) mg/dL POC Glu Mate First ID Calcium (8.4-10.2) mg/dL Magnesium (1.6-2.3) mg/dL Total Bilirubin (0.2-1.3) mg/dL AST (14-36) U/L ALT (4-34) U/L Alkaline Phosphatase (38-126) U/L Ammonia (<30) umol/L Troponin I (0.000-0.034) ng/mL Total Protein (6.3-8.2) g/dL Albumin (3.5-5.0) g/dL Urine Color Urine Appearance (Clear) Urine pH (5.0-8.0) Ur Specific [place] (1.001-1.035) Urine Protein (Negative) Urine Glucose (UA) (Negative) Urine Ketones (Negative) Urine Blood (Negative) Urine Nitrite (Negative) Urine Bilirubin (Negative) Urine Urobilinogen (<2.0) mg/dL Ur Leukocyte Esterase (Negative) Urine RBC (0-5) /hpf Urine WBC (0-5) /hpf Urine Bacteria (None) /hpf Urine Opiates Screen Not Detected (NotDetected) Ur Oxycodone Screen Not Detected (NotDetected) Urine Methadone Screen Not Detected (NotDetected) Ur Propoxyphene Screen Not Detected (NotDetected) Ur Barbiturates Screen Not Detected (NotDetected) U Tricyclic Antidepress Not Detected (NotDetected) Ur Phencyclidine Scrn Not Detected (NotDetected) Ur Amphetamines Screen Not Detected (NotDetected) U Methamphetamines Scrn Not Detected (NotDetected) U Benzodiazepines Scrn Not Detected (NotDetected) Urine Cocaine Screen Not Detected (NotDetected) U Marijuana (THC) Screen Not Detected (NotDetected) Coronavirus (PCR) (Not Detectd) 04/05/22 04/05/22 04/05/22 Range/Units 07:49 07:49 07:49 WBC (3.8-10.6) k/uL RBC (3.80-5.40) m/uL Hgb (11.4-16.0) gm/dL Hct (34.0-46.0) % MCV (80.0-100.0) fL MCH (25.0-35.0) pg MCHC (31.0-37.0) g/dL RDW (11.5-15.5) % Plt Count (150-450) k/uL MPV Neutrophils % % Lymphocytes % % Monocytes % % Eosinophils % % Basophils % % Neutrophils # (1.3-7.7) k/uL Lymphocytes # (1.0-4.8) k/uL Monocytes # (0-1.0) k/uL Eosinophils # (0-0.7) k/uL Basophils # (0-0.2) k/uL PT (9.0-12.0) sec INR (<1.2) APTT (22.0-30.0) sec Sodium 142 (137-145) mmol/L Potassium 4.2 (3.5-5.1) mmol/L Chloride 105 (98-107) mmol/L Carbon Dioxide 30 (22-30) mmol/L Anion Gap 7 mmol/L BUN 26 H (7-17) mg/dL Creatinine 0.71 (0.52-1.04) mg/dL Est GFR (CKD-EPI)AfAm 90 (>60 ml/min/1.73 sqM) Est GFR (CKD-EPI)NonAf 78 (>60 ml/min/1.73 sqM) Glucose 99 (74-99) mg/dL POC Glucose (mg/dL) (70-110) mg/dL POC Glu Mate First ID Calcium 9.1 (8.4-10.2) mg/dL Magnesium 1.7 (1.6-2.3) mg/dL Total Bilirubin 0.7 (0.2-1.3) mg/dL AST 38 H (14-36) U/L ALT 23 (4-34) U/L Alkaline Phosphatase 91 (38-126) U/L Ammonia (<30) umol/L Troponin I <0.012 (0.000-0.034) ng/mL Total Protein 6.7 (6.3-8.2) g/dL Albumin 4.0 (3.5-5.0) g/dL Urine Color Yellow Urine Appearance Cloudy H (Clear) Urine pH 7.0 (5.0-8.0) Ur Specific [place] 1.016 (1.001-1.035) Urine Protein Trace H (Negative) Urine Glucose (UA) Negative (Negative) Urine Ketones Negative (Negative) Urine Blood Negative (Negative) Urine Nitrite Positive H (Negative) Urine Bilirubin Negative (Negative) Urine Urobilinogen <2.0 (<2.0) mg/dL Ur Leukocyte Esterase Large H (Negative) Urine RBC 3 (0-5) /hpf Urine WBC 116 H (0-5) /hpf Urine Bacteria Rare H (None) /hpf Urine Opiates Screen (NotDetected) Ur Oxycodone Screen (NotDetected) Urine Methadone Screen (NotDetected) Ur Propoxyphene Screen (NotDetected) Ur Barbiturates Screen (NotDetected) U Tricyclic Antidepress (NotDetected) Ur Phencyclidine Scrn (NotDetected) Ur Amphetamines Screen (NotDetected) U Methamphetamines Scrn (NotDetected) U Benzodiazepines Scrn (NotDetected) Urine Cocaine Screen (NotDetected) U Marijuana (THC) Screen (NotDetected) Coronavirus (PCR) (Not Detectd) 04/05/22 04/05/22 04/05/22 Range/Units 07:49 07:50 08:01 WBC (3.8-10.6) k/uL RBC (3.80-5.40) m/uL Hgb (11.4-16.0) gm/dL Hct (34.0-46.0) % MCV (80.0-100.0) fL MCH (25.0-35.0) pg MCHC (31.0-37.0) g/dL RDW (11.5-15.5) % Plt Count (150-450) k/uL MPV Neutrophils % % Lymphocytes % % Monocytes % % Eosinophils % % Basophils % % Neutrophils # (1.3-7.7) k/uL Lymphocytes # (1.0-4.8) k/uL Monocytes # (0-1.0) k/uL Eosinophils # (0-0.7) k/uL Basophils # (0-0.2) k/uL PT (9.0-12.0) sec INR (<1.2) APTT (22.0-30.0) sec Sodium (137-145) mmol/L Potassium (3.5-5.1) mmol/L Chloride (98-107) mmol/L Carbon Dioxide (22-30) mmol/L Anion Gap mmol/L BUN (7-17) mg/dL Creatinine (0.52-1.04) mg/dL Est GFR (CKD-EPI)AfAm (>60 ml/min/1.73 sqM) Est GFR (CKD-EPI)NonAf (>60 ml/min/1.73 sqM) Glucose (74-99) mg/dL POC Glucose (mg/dL) 79 (70-110) mg/dL POC Glu Mate First ID Juvencio Rushing Calcium (8.4-10.2) mg/dL Magnesium (1.6-2.3) mg/dL Total Bilirubin (0.2-1.3) mg/dL AST (14-36) U/L ALT (4-34) U/L Alkaline Phosphatase (38-126) U/L Ammonia <9 (<30) umol/L Troponin I (0.000-0.034) ng/mL Total Protein (6.3-8.2) g/dL Albumin (3.5-5.0) g/dL Urine Color Urine Appearance (Clear) Urine pH (5.0-8.0) Ur Specific [place] (1.001-1.035) Urine Protein (Negative) Urine Glucose (UA) (Negative) Urine Ketones (Negative) Urine Blood (Negative) Urine Nitrite (Negative) Urine Bilirubin (Negative) Urine Urobilinogen (<2.0) mg/dL Ur Leukocyte Esterase (Negative) Urine RBC (0-5) /hpf Urine WBC (0-5) /hpf Urine Bacteria (None) /hpf Urine Opiates Screen (NotDetected) Ur Oxycodone Screen (NotDetected) Urine Methadone Screen (NotDetected) Ur Propoxyphene Screen (NotDetected) Ur Barbiturates Screen (NotDetected) U Tricyclic Antidepress (NotDetected) Ur Phencyclidine Scrn (NotDetected) Ur Amphetamines Screen (NotDetected) U Methamphetamines Scrn (NotDetected) U Benzodiazepines Scrn (NotDetected) Urine Cocaine Screen (NotDetected) U Marijuana (THC) Screen (NotDetected) Coronavirus (PCR) Not Detected (Not Detectd) - EKG Data -: EKG Interpreted by Me EKG shows normal: sinus rhythm EKG Comments: EKG interpreted by me bradycardia 54 sinus rhythm, GA interval 142, QRS duration 86, QT/QTC 46/473 evidence of right ventricular conduction delay nonspecific septal changes this is compared with EKG dated 11/02/21 showing similar configuration. - Radiology Data Radiology results: image reviewed (Imaging interpreted by me no acute processes seen.) Disposition Clinical Impression: Urinary tract infection, Dehydration Disposition: HOME SELF-CARE Condition: Good Instructions (If sedation given, give patient instructions): Urinary Tract Infection in Women (ED), Dehydration (ED) Prescriptions: Cephalexin [Keflex] 500 mg PO Q8HR 1 Days #30 cap Is patient prescribed a controlled substance at d/c from ED?: No Referrals: Chaz Fox MD [Primary Care Provider] - 1-2 days Decision Date: 04/05/22 Decision Time: 10:29
[2022-04-05 07:59] LABS: Basophils # (A) 0.1 k/uL (0-0.2); Basophils % (A) 1 %; Eosinophils # (A) 0.3 k/uL (0-0.7); Eosinophils % (A) 4 %; HCT 40.7 % (34.0-46.0); HGB 13.4 gm/dL (11.4-16.0); Lymphocytes # (A) 1.3 k/uL (1.0-4.8); Lymphocytes % (A) 21 %; MCH 31.5 pg (25.0-35.0); MCHC 32.9 g/dL (31.0-37.0); MCV 95.5 fL (80.0-100.0); Mean Platelet Volume 8.5; Monocytes # (A) 0.3 k/uL (0-1.0); Monocytes % (A) 5 %; Neutrophils # (A) 4.1 k/uL (1.3-7.7); Neutrophils % (A) 66 %; Platelet Count 167 k/uL (150-450); RBC 4.26 m/uL (3.80-5.40); RDW 14.4 % (11.5-15.5); WBC 6.2 k/uL (3.8-10.6)
[2022-04-05 08:05] LABS: Glucose,Whole Blood 79 mg/dL (70-110)
[2022-04-05 08:06] LABS: Calcium 9.1 mg/dL (8.4-10.2); Magnesium 1.7 mg/dL (1.6-2.3); Potassium 4.2 mmol/L (3.5-5.1); Total Bilirubin 0.7 mg/dL (0.2-1.3); Total Protein 6.7 g/dL (6.3-8.2)
[2022-04-05 08:19] LABS: INR 1.1 (<1.2); Partial Thromboplastin Time 25.1 sec (22.0-30.0); Prothrombin Time 11.4 sec (9.0-12.0)
--- NOTE | 2022-04-05 08:31 | CT ---
EXAMINATION TYPE: CT brain wo con DATE OF EXAM: 04/05/2022 COMPARISON: 01/13/2022 HISTORY: Altered mental status CT DLP: 1131.[address] of the brain was performed. The ventricles, basal cisterns and sulci overlying the cerebral convexities demonstrate mild enlargem ent. There is no evidence for intracranial hemorrhage or sulcal effacement. There is decreased attenuation about the periventricular white matter and deep white matter of both c erebral hemispheres, compatible with chronic small vessel ischemia. Differential diagnosis does inclu de demyelination. No mass effects are seen.No midline shift. Osseous calvarium is intact. If symptoms persist consider MRI. IMPRESSION: 1. Age related atrophic and chronic small vessel ischemic change without acute intracranial process s een at this time.
--- NOTE | 2022-04-05 08:35 | XR ---
EXAMINATION TYPE: XR chest 2V DATE OF EXAM: 04/05/2022 COMPARISON: 04/29/21 HISTORY: Shortness of breath TECHNIQUE: Frontal and lateral views of the chest are obtained. FINDINGS: Scattered senescent parenchymal changes noted. Hyperinflation compatible with COPD. No evidence for infiltrate. No evidence for atelectasis. Heart size is stable. Mediastinal structures are stable and grossly unremarkable. No evidence for hilar prominence. Degenerative changes dorsal spine. IMPRESSION: 1. No evidence for acute pulmonary disease.
[2022-04-05 08:54] LABS: Appearance,Urine Cloudy (Clear); Bacteria,Urine Rare /hpf; Bilirubin,Urine Negative (Negative); Blood,Urine Negative (Negative); Color,Urine Yellow; Glucose,Urine (UA) Negative (Negative); Ketones,Urine Negative (Negative); Leukocyte Esterase,Urine Large (Negative); Nitrite,Urine Positive (Negative); Protein,Urine Trace (Negative); RBC,Urine 3 /hpf (0-5); Specific Gravity,Urine 1.016 (1.001-1.035); Urobilinogen,Urine <2.0 mg/dL (<2.0); WBC,Urine 116 /hpf (0-5)
[2022-04-05 09:00] VITALS: RESP 16
[2022-04-05 09:15] LABS: Amphetamine Screen,Urine Not Detected (NotDetected); Barbiturate Screen,Urine Not Detected (NotDetected); Benzodiazepines Screen,Urine Not Detected (NotDetected); Cocaine Screen,Urine Not Detected (NotDetected); Methadone Screen, Urine Not Detected (NotDetected); Opiate Screen,Urine Not Detected (NotDetected); Oxycodone Screen, Urine Not Detected (NotDetected); Phencyclidine Screen,Urine Not Detected (NotDetected); Tricyclic Antidepressant,Urine Not Detected (NotDetected); Urn Cannabinoid Scrn Not Detected (NotDetected)
[2022-04-05] MEDS ORDERED: cefTRIAXone IN SWFI 1,000 MG/10 ML SYRINGE IVP STA (09:29)
[2022-04-05] MEDS ORDERED: SODIUM CHLORIDE 0.9% 500 ML 500 ML IV STA (09:30)
[2022-04-05 12:28] VITALS: BP 176/63; PULSE 60
== END 2022-04-05 12:28 | disposition home or self-care (01) ==
LOC: EC 07:00
DX: N39.0 Urinary tract infection, site not specified (principal); E86.0 Dehydration; I48.91 Unspecified atrial fibrillation; I11.0 Hypertensive heart disease with heart failure; I50.9 Heart failure, unspecified; K21.9 Gastro-esophageal reflux disease without esophagitis; E78.5 Hyperlipidemia, unspecified; E03.9 Hypothyroidism, unspecified; F41.9 Anxiety disorder, unspecified; F32.A Depression, unspecified; Z87.891 Personal history of nicotine dependence; Z88.2 Allergy status to sulfonamides; Z88.0 Allergy status to penicillin; Z88.5 Allergy status to narcotic agent; Z79.890 Hormone replacement therapy; Z79.899 Other long term (current) drug therapy; Z20.822 Contact with and (suspected) exposure to COVID-19
CPT/HCPCS: 36415; 93005; 80053; 82140; 83735; 84484; 85025; 85610; 85730; 81001; 80306; 87086; 87635; 71046; 70450; 99285; 96374; 96361 ×3; J0696; 87077; 87186